=== PATIENT | female | born 1965 | race Caucasian/White ===

== ENCOUNTER 2019-02-21 14:57 | Outpatient (REF) | payer BC, SELFPAY ==
[2019-02-21 15:19] LABS: Abs Immature Grans 0.04 k/cumm (0.0-0.09); Absolute Basophil Count 0.08 k/cumm (0.0-0.2); Absolute Eosinophil Count 0.27 k/cumm (0.0-0.7); Absolute Lymphocyte Count 2.04 k/cumm (1.2-3.4); Absolute Monocyte Count 0.59 k/cumm (0.11-0.7); Absolute Neutrophil Count 4.18 k/cumm (1.2-6.7); Basophils % 1.1; Eosinophils % 3.8; Immature Grans % 0.6; Lymphocytes % 28.3; Mean Corp. HGB Concentration 33.3 g/dL (32.0-36.0); Mean Corpuscular Hemoglobin 29.3 pg (27.0-33.0); Mean Corpuscular Volume 87.8 fL (80-95); Mean Platelet Volume 9.4 fL (8.0-11.0); Monocytes % 8.2; Platelet Count 403 x1000/uL (130-400); RBC Distribution Width 13.2 % (11.7-14.6)
[2019-02-21 16:13] LABS: ALT 105 U/L (12-78); AST 77 U/L (15-37); Albumin 3.6 g/dL (3.4-5.0); Alkaline Phosphatase 138 U/L (46-116); Anion Gap 9.2 mmol/L (3-11); BUN 16 mg/dL (7-18); Bilirubin, Total 0.4 mg/dL (0.2-1.0); C-Reactive Protein 2.64 mg/dL (0.0-0.3); CO2 27.8 mmol/L (21.0-32.0); CREATININE 0.83 mg/dL (0.55-1.02); Chloride 102 mmol/L (98-107); Glucose 100 mg/dL (70-100); Potassium 4.6 mmol/L (3.5-5.1); Sodium 139 mmol/L (136-145); Total Protein 7.2 g/dL (6.4-8.2)
== END 2019-02-21 15:17 ==
LOC: NCHCN 14:57
PROVIDERS: PCP Family Medicine; Visit Provider Family Medicine
DX: T84.53XD Infection and inflammatory reaction due to internal right knee prosthesis, subsequent encounter (principal); Z96.652 Presence of left artificial knee joint; Z79.2 Long term (current) use of antibiotics
CPT/HCPCS: 80053; 85025; 86140

== ENCOUNTER 2019-02-28 13:04 | Outpatient (REF) | payer BC, SELFPAY ==
[2019-02-28 13:59] LABS: Abs Immature Grans 0.01 k/cumm (0.0-0.09); Absolute Basophil Count 0.11 k/cumm (0.0-0.2); Absolute Eosinophil Count 0.39 k/cumm (0.0-0.7); Absolute Lymphocyte Count 1.67 k/cumm (1.2-3.4); Absolute Monocyte Count 0.76 k/cumm (0.11-0.7); Basophils % 1.9; Eosinophils % 6.6; HCT 39.3 % (36.0-46.0); HGB 12.9 g/dL (12.0-15.5); Immature Grans % 0.2; Lymphocytes % 28.1; Mean Corp. HGB Concentration 32.8 g/dL (32.0-36.0); Mean Corpuscular Volume 88.3 fL (80-95); Mean Platelet Volume 9.6 fL (8.0-11.0); Monocytes % 12.8; Neutrophils % 50.4; Platelet Count 393 x1000/uL (130-400); RBC 4.45 m/cumm (4.00-5.20); RBC Distribution Width 13.3 % (11.7-14.6); White Blood Cell Count 5.94 k/cumm (4.4-10.8)
[2019-02-28 14:10] LABS: ALT 60 U/L (12-78); AST 42 U/L (15-37); Albumin 3.8 g/dL (3.4-5.0); Alkaline Phosphatase 142 U/L (46-116); Anion Gap 10.3 mmol/L (3-11); BUN 15 mg/dL (7-18); Bilirubin, Total 0.3 mg/dL (0.2-1.0); CO2 28.7 mmol/L (21.0-32.0); CREATININE 0.73 mg/dL (0.55-1.02); Calcium 9.3 mg/dL (8.5-10.1); Chloride 102 mmol/L (98-107); Glucose 80 mg/dL (70-100); Potassium 4.3 mmol/L (3.5-5.1); Sodium 141 mmol/L (136-145); Total Protein 7.3 g/dL (6.4-8.2)
[2019-03-03 12:06] LABS: C-Reactive Protein 1.39 mg/dL (0.0-0.3)
== END 2019-02-28 13:24 ==
LOC: NCHCN 13:04
PROVIDERS: Internal Medicine Infectious Disease; PCP Family Medicine; Visit Provider Family Medicine
DX: M00.9 Pyogenic arthritis, unspecified (principal); Z96.652 Presence of left artificial knee joint; T84.53XD Infection and inflammatory reaction due to internal right knee prosthesis, subsequent encounter; Z79.2 Long term (current) use of antibiotics
CPT/HCPCS: 80053; 85025; 86140

== ENCOUNTER 2019-03-07 12:50 | Outpatient (REF) | payer BC, SELFPAY ==
[2019-03-07 14:29] LABS: Abs Immature Grans 0.01 k/cumm (0.0-0.09); Absolute Basophil Count 0.11 k/cumm (0.0-0.2); Absolute Lymphocyte Count 1.47 k/cumm (1.2-3.4); Absolute Neutrophil Count 2.04 k/cumm (1.2-6.7); Basophils % 2.2; Eosinophils % 14.2; HCT 40.6 % (36.0-46.0); HGB 13.6 g/dL (12.0-15.5); Immature Grans % 0.2; Lymphocytes % 29.8; Mean Corp. HGB Concentration 33.5 g/dL (32.0-36.0); Mean Corpuscular Hemoglobin 29.2 pg (27.0-33.0); Mean Corpuscular Volume 87.3 fL (80-95); Monocytes % 12.2; Neutrophils % 41.4; Platelet Count 282 x1000/uL (130-400); RBC 4.65 m/cumm (4.00-5.20); RBC Distribution Width 13.3 % (11.7-14.6); White Blood Cell Count 4.93 k/cumm (4.4-10.8)
[2019-03-07 15:22] LABS: ALT 76 U/L (12-78); AST 42 U/L (15-37); Albumin 3.7 g/dL (3.4-5.0); Alkaline Phosphatase 143 U/L (46-116); Anion Gap 7.5 mmol/L (3-11); BUN 18 mg/dL (7-18); Bilirubin, Total 0.1 mg/dL (0.2-1.0); C-Reactive Protein 1.18 mg/dL (0.0-0.3); CO2 28.5 mmol/L (21.0-32.0); CREATININE 0.69 mg/dL (0.55-1.02); Calcium 9.1 mg/dL (8.5-10.1); Chloride 103 mmol/L (98-107); Glucose 138 mg/dL (70-100); Potassium 4.3 mmol/L (3.5-5.1); Sodium 139 mmol/L (136-145); Total Protein 7.2 g/dL (6.4-8.2)
== END 2019-03-07 13:10 ==
LOC: LBN 12:50
PROVIDERS: PCP Family Medicine; Visit Provider Family Medicine
DX: T84.53XD Infection and inflammatory reaction due to internal right knee prosthesis, subsequent encounter (principal); Z79.2 Long term (current) use of antibiotics; M00.9 Pyogenic arthritis, unspecified
CPT/HCPCS: 80053; 85025; 86140

== ENCOUNTER 2019-03-09 23:06 | Emergency (ER) | payer BC, SELFPAY ==
--- NOTE | 2019-03-09 00:15 | DI.RAD_ITS ---
SYMPTOM/DIAGNOSIS: CHEST PAIN PA AND LATERAL CHEST: Heart size and pulmonary vasculature are within normal limits. No focal consolidating infiltrates, effusions or pneumothoraces are identified. There is a right PICC line, the tip of the catheter is seen overlying the superior vena cava. IMPRESSION: No acute pulmonary process.
[2019-03-09 23:15] VITALS: BP 120/75; PULSE 85; RESP 20; TEMP 37.5; O2SAT 97
--- NOTE | 2019-03-09 23:31 | W.ED.GENAD ---
Discharge Plan Disposition Patient Disposition: HOME Condition: Good Discharge Details Chief Complaint: Chest Pain Clinical Impression: Chest pain Primary Care Provider: Sari Hay ED Provider: Michael Freed Home Meds and New Rx's Prescriptions: Continued rifampin 300 mg capsule 300 mg PO BID RF: 0 lisinopril 30 mg tablet 30 mg PO DAILY RF: 0 ceftriaxone in dextrose,iso-os 2 gram/50 mL Piggyback 2 g IV DAILY RF: 0 Discontinued ibuprofen [Advil Liqui-Gel] 200 MG capsule 400 mg PO DIRECTED PRNRF: 0 Discharge Instructions Instructions: Chest Pain (ED) Additional Instructions: Work-up tonight is reassuring. It is possible this is all GI related and secondary to taking Aleve for your knee. Would discontinue nonsteroidals and go back to just using Tylenol. May try [id number] Zantac or Pepcid over the weekend. Follow-up with primary care next week. Return to ED if you develop any new or worsening chest pain, shortness of breath, fever, other problems. Referrals: Sari Hay MD [Primary Care Provider] - Medical Decision Making Patient presenting with chest pressure that has been waxing and waning for 2 hours. There has been a few minutes where it goes away but it always returns. There is no radiation of pain. There is no associated symptoms. She is about 3 weeks postop from repeat knee surgery for total knee replacement infection. I do not think it is pulmonary embolus. I also do not think it cardiac. These would be the 2 pathologies I would worry about however. We will give the patient 3 more baby aspirin here. We will try a GI cocktail before trying nitroglycerin. EKG with no ST elevation. Inverted T waves precordial which are more or less present previously. No ST depression. Will get laboratory studies including d-dimer. Will obtain chest x-ray. GI cocktail has resolved the patient's symptoms. Discomfort has essentially not come back since getting the GI cocktail. Laboratory studies unremarkable except for a markedly elevated d-dimer. This could be related to the infection that is being treated. However, because she is recently postop I will pursue with CTA of the chest. I have discussed this with the patient and she is agreeable to proceed. First troponin is negative. If CTA negative plan repeat troponin and EKG at 2:30. CXR is unremarkable. HEART score is three based on age, EKG and risk factors. 03:45 -CTA of chest was difficult to time because of such good cardiac output. First CT was nondiagnostic. Second CT without evidence of central PE. Was still felt to not be completely adequate in terms of contrast bolus. However, patient is not describing pleuritic pain, shortness of breath. She has no tachycardia. I have discussed this with patient. Despite CTA not being completely optimal I think it is reasonable at this point to consider PE ruled out. Patient's pain has not come back. Second EKG is unchanged from one done earlier this evening. Second troponin is negative. Patient has been taking a fair amount of Aleve for her knee pain. It is possible this is all GI related. Will have patient go back to Tylenol as opposed to Aleve. Consider some [id number] Pepcid or Zantac for a few days. Follow-up with primary care next week. Return to ED for new or worsening chest pain, shortness of breath, fever, other concerns. Lab Data Lab results reviewed: Yes I reviewed the patient's lab results. ECG Data Attestation: I personally reviewed and interpreted this ECG (s) as follows: Prior ECG tracings: available for review Interpretation: Normal sinus rhythm at a rate of 86. Normal axis and intervals. Does have inverted T waves V1 V2 and flattening V3. Not a lot different compared to EKG from 2007.` HPI General Mode of arrival: ambulatory. Date/Time Provider Initiated Documentation: 03/09/19 23:27. Limitations to Documentation: no limitations. Information obtained by: patient, RN notes reviewed and old records reviewed. HPI Narrative: Patient presents to ED with complaint of chest pressure. Patient reports going to bed around 9 PM. She developed some right sided chest discomfort which is now centralized and substernal. Describes it as a pressure. Waxes and wanes in intensity and at times goes away for a few minutes but comes back. She has no radiation of the discomfort. She has no associated symptoms. She is on rifampin as well as IV ceftriaxone for treatment of a left total knee infection. She did contact and speak to her home health nurse. They were thinking it was probably GI related. However, after 2 hours of discomfort she finally came in for evaluation. She did take a walk hoping that that would help with the chest discomfort. It did not aggravate it or make it worse but it also did not make it better. She did take a low dose aspirin at home. She has not had chest pain before. She does have history of hypertension and obesity. She has borderline hypercholesterolemia but is not treated with medication for it at this point. She denies having any calf pain or lower extremity swelling. Her knee is actually getting much better. Related Data Home Medications Medication Instructions Recorded Confirmed ceftriaxone in dextrose,iso-os 2 g IV DAILY 03/10/19 03/10/19 lisinopril 30 mg PO DAILY 03/10/19 03/10/19 rifampin 300 mg PO BID 03/10/19 03/10/19 Allergies Allergy/AdvReac Type Severity Reaction Status Date / Time codeine AdvReac Intermediate Nausea Unverified 03/09/19 23:24 adhesive AdvReac Unverified 03/09/19 23:39 General Stated Complaint: Chest Pain HANANE: 2Sh Review of Systems Review of Systems 07/18 Review of Systems completed and is negative except as stated above in HPI (Systems reviewed: Const, Eyes, ENT, Resp, CV, GI, , MSK, Skin, Neuro) PFSH Medical History HTN (hypertension) (Chronic) Obesity (Chronic) Surgical History S/P TKR (total knee replacement) (Chronic) History of section (Inactive) S/P tubal ligation (Inactive) Colonoscopy - MAC (Inactive 05/11/17) Social History Smoking/Tobacco Use Status: Former Tobacco Use Alcohol Intake: former Drug use: Never Do you feel safe at home: Yes Do you feel safe in your relationship?: Yes Exam Narrative Exam Narrative: Vitals: Afebrile with normal vital signs. Const: Obese female in NAD. HEENT: NC/AT. Normal facial exam. Eyes: Normal conjunctiva and sclera. Neck: Supple. Trachea midline. Lungs: Normal respiratory effort. Lungs are clear. No chest wall tenderness. Cor: RRR without murmur/gallop. Good radial pulses. GI: Soft. NT/ND. No guarding or rebound. No RUQ tenderness or Rahman sign. Neuro: A+O x 3. CN grossly in tact. Good strength and no focal deficit. Ext: No C/C/E. No calf tenderness. Skin: Warm and dry without rash. Course Vital Signs Temperature 99.5 F 03/09/19 23:15 Pulse 85 03/09/19 23:15 Respiratory Rate 20 03/09/19 23:15 Blood Pressure 120/75 03/09/19 23:15 Pulse Oximetry 97 03/09/19 23:15 Temperature 99.5 F 03/09/19 23:15 Temperature Source Temporal Artery Scan 03/09/19 23:15 Pulse 85 03/09/19 23:15 Respiratory Rate 20 03/09/19 23:15 Blood Pressure 120/75 03/09/19 23:15 Pulse Oximetry 97 03/09/19 23:15 Oxygen Delivery Method Room Air 03/09/19 23:15 Oxygen Flow Rate 0 03/09/19 23:15
--- NOTE | 2019-03-09 23:36 | ED.GENADUL_ITS ---
Discharge Plan Disposition Patient Disposition: HOME Condition: Good Discharge Details Chief Complaint: Chest Pain Clinical Impression: Chest pain Primary Care Provider: Sari Hay ED Provider: Michael Freed Home Meds and New Rx's Prescriptions: Continued rifampin 300 mg capsule 300 mg PO BID RF: 0 lisinopril 30 mg tablet 30 mg PO DAILY RF: 0 ceftriaxone in dextrose,iso-os 2 gram/50 mL Piggyback 2 g IV DAILY RF: 0 Discontinued ibuprofen [Advil Liqui-Gel] 200 MG capsule 400 mg PO DIRECTED PRNRF: 0 Discharge Instructions Instructions: Chest Pain (ED) Additional Instructions: Work-up tonight is reassuring. It is possible this is all GI related and secondary to taking Aleve for your knee. Would discontinue nonsteroidals and go back to just using Tylenol. May try [id number] Zantac or Pepcid over the weekend. Follow-up with primary care next week. Return to ED if you develop any new or worsening chest pain, shortness of breath, fever, other problems. Referrals: Sari Hay MD [Primary Care Provider] - Medical Decision Making Patient presenting with chest pressure that has been waxing and waning for 2 hours. There has been a few minutes where it goes away but it always returns. There is no radiation of pain. There is no associated symptoms. She is about 3 weeks postop from repeat knee surgery for total knee replacement infection. I do not think it is pulmonary embolus. I also do not think it cardiac. These would be the 2 pathologies I would worry about however. We will give the patient 3 more baby aspirin here. We will try a GI cocktail before trying nitroglycerin. EKG with no ST elevation. Inverted T waves precordial which are more or less present previously. No ST depression. Will get laboratory studies including d-dimer. Will obtain chest x-ray. GI cocktail has resolved the patient's symptoms. Discomfort has essentially not come back since getting the GI cocktail. Laboratory studies unremarkable except for a markedly elevated d-dimer. This could be related to the infection that is being treated. However, because she is recently postop I will pursue with CTA of the chest. I have discussed this with the patient and she is agreeable to proceed. First troponin is negative. If CTA negative plan repeat troponin and EKG at 2:30. CXR is unremarkable. HEART score is three based on age, EKG and risk factors. 03:45 -CTA of chest was difficult to time because of such good cardiac output. First CT was nondiagnostic. Second CT without evidence of central PE. Was still felt to not be completely adequate in terms of contrast bolus. However, patient is not describing pleuritic pain, shortness of breath. She has no tachycardia. I have discussed this with patient. Despite CTA not being completely optimal I think it is reasonable at this point to consider PE ruled out. Patient's pain has not come back. Second EKG is unchanged from one done earlier this evening. Second troponin is negative. Patient has been taking a fair amount of Aleve for her knee pain. It is possible this is all GI related. Will have patient go back to Tylenol as opposed to Aleve. Consider some [id number] Pepcid or Zantac for a few days. Follow-up with primary care next week. Return to ED for new or worsening chest pain, shortness of breath, fever, other concerns. Lab Data Lab results reviewed: Yes I reviewed the patient's lab results. ECG Data Attestation: I personally reviewed and interpreted this ECG (s) as follows: Prior ECG tracings: available for review Interpretation: Normal sinus rhythm at a rate of 86. Normal axis and intervals. Does have inverted T waves V1 V2 and flattening V3. Not a lot different compared to EKG from 2007.` HPI General Mode of arrival: ambulatory . Date/Time Provider Initiated Documentation: 03/09/19 23:27 . Limitations to Documentation: no limitations . Information obtained by: patient, RN notes reviewed and old records reviewed . HPI Narrative: Patient presents to ED with complaint of chest pressure. Patient reports going to bed around 9 PM. She developed some right sided chest discomfort which is now centralized and substernal. Describes it as a pressure. Waxes and wanes in intensity and at times goes away for a few minutes but comes back. She has no radiation of the discomfort. She has no associated symptoms. She is on rifampin as well as IV ceftriaxone for treatment of a left total knee infection. She did contact and speak to her home health nurse. They were thinking it was probably GI related. However, after 2 hours of discomfort she finally came in for evaluation. She did take a walk hoping that that would help with the chest discomfort. It did not aggravate it or make it worse but it also did not make it better. She did take a low dose aspirin at home. She has not had chest pain before. She does have history of hypertension and obesity. She has borderline hypercholesterolemia but is not treated with medication for it at this point. She denies having any calf pain or lower extremity swelling. Her knee is actually getting much better. Related Data Home Medications Medication Instructions Recorded Confirmed ceftriaxone in dextrose,iso-os 2 g IV DAILY 03/10/19 03/10/19 lisinopril 30 mg PO DAILY 03/10/19 03/10/19 rifampin 300 mg PO BID 03/10/19 03/10/19 Allergies Allergy/AdvReac Type Severity Reaction Status Date / Time codeine AdvReac Intermediate Nausea Unverified 03/09/19 23:24 adhesive AdvReac Unverified 03/09/19 23:39 General Stated Complaint: Chest Pain HANANE: 2 Sh Review of Systems Review of Systems 07/18 Review of Systems completed and is negative except as stated above in HPI (Systems reviewed: Const, Eyes, ENT, Resp, CV, GI, , MSK, Skin, Neuro) PFSH Medical History HTN (hypertension) (Chronic) Obesity (Chronic) Surgical History S/P TKR (total knee replacement) (Chronic) History of section (Inactive) S/P tubal ligation (Inactive) Colonoscopy - MAC (Inactive 05/11/17) Social History Smoking/Tobacco Use Status: Former Tobacco Use Alcohol Intake: former Drug use: Never Do you feel safe at home: Yes Do you feel safe in your relationship?: Yes Exam Narrative Exam Narrative: Vitals: Afebrile with normal vital signs. Const: Obese female in NAD. HEENT: NC/AT. Normal facial exam. Eyes: Normal conjunctiva and sclera. Neck: Supple. Trachea midline. Lungs: Normal respiratory effort. Lungs are clear. No chest wall tenderness. Cor: RRR without murmur/gallop. Good radial pulses. GI: Soft. NT/ND. No guarding or rebound. No RUQ tenderness or Rahman sign. Neuro: A+O x 3. CN grossly in tact. Good strength and no focal deficit. Ext: No C/C/E. No calf tenderness. Skin: Warm and dry without rash. Course Vital Signs Temperature 99.5 F 03/09/19 23:15 Pulse 85 03/09/19 23:15 Respiratory Rate 20 03/09/19 23:15 Blood Pressure 120/75 03/09/19 23:15 Pulse Oximetry 97 03/09/19 23:15 Temperature 99.5 F 03/09/19 23:15 Temperature Source Temporal Artery Scan 03/09/19 23:15 Pulse 85 03/09/19 23:15 Respiratory Rate 20 03/09/19 23:15 Blood Pressure 120/75 03/09/19 23:15 Pulse Oximetry 97 03/09/19 23:15 Oxygen Delivery Method Room Air 03/09/19 23:15 Oxygen Flow Rate 0 03/09/19 23:15
[2019-03-09] MEDS: Aspirin 81 MG CHEW 324 MG CH (23:39)
[2019-03-09 23:49] VITALS: PULSE 76; RESP 17; O2SAT 92
[2019-03-09 23:50] VITALS: PULSE 80; RESP 17; O2SAT 95
[2019-03-10] VITALS (30 sets, daily range): BP systolic 100–115; BP diastolic 44–75; PULSE 67–93; RESP 14–24; O2SAT 91–98
[2019-03-10 00:04] LABS: Absolute Basophil Count 0.08 k/cumm (0.0-0.2); Absolute Lymphocyte Count 1.71 k/cumm (1.2-3.4); Absolute Monocyte Count 0.87 k/cumm (0.11-0.7); Absolute Neutrophil Count 2.39 k/cumm (1.2-6.7); Basophils % 1.4; Eosinophils % 13.7; HGB 13.2 g/dL (12.0-15.5); Lymphocytes % 29.2; Mean Corp. HGB Concentration 33.8 g/dL (32.0-36.0); Mean Corpuscular Hemoglobin 29.1 pg (27.0-33.0); Mean Corpuscular Volume 86.1 fL (80-95); Mean Platelet Volume 9.5 fL (8.0-11.0); Monocytes % 14.9; Neutrophils % 40.8; Platelet Count 222 x1000/uL (130-400); RBC 4.53 m/cumm (4.00-5.20); White Blood Cell Count 5.85 k/cumm (4.4-10.8)
[2019-03-10 00:17] LABS: ALT 58 U/L (12-78); AST 32 U/L (15-37); Albumin 3.6 g/dL (3.4-5.0); Alkaline Phosphatase 136 U/L (46-116); BUN 20 mg/dL (7-18); Bilirubin, Total 0.2 mg/dL (0.2-1.0); CREATININE 0.94 mg/dL (0.55-1.02); Calcium 9.1 mg/dL (8.5-10.1); Chloride 100 mmol/L (98-107); Glucose 130 mg/dL (70-100); Magnesium 2.3 mg/dL (1.8-2.4); Sodium 134 mmol/L (136-145); Total Protein 7.3 g/dL (6.4-8.2); Troponin I < 0.02 ng/mL (0.00-0.06)
[2019-03-10 00:19] LABS: PTT Activated 22.6 sec (21.0-31.4); Prothrombin Time 10.4 sec (9.3-11.0)
[2019-03-10 00:34] LABS: D-Dimer > 7500 ng/mlFEU (<500)
--- NOTE | 2019-03-10 00:37 | DI.VRAD_ITS ---
EXAM: XR Chest, 2 Views EXAM DATE/TIME: 03/09/2019 11:31 PM CLINICAL HISTORY: 53 years old, female; Chest pain; Type not specified; Additional info: Left knee surgery x4 weeks ago +/- TECHNIQUE: Imaging protocol: XR of the chest, 2 views. COMPARISON: No relevant prior studies available. FINDINGS: Lungs: Right PICC line tip overlies superior vena cava. No consolidation. Pleural space: Unremarkable. No pleural effusion. No pneumothorax. Heart/Mediastinum: Unremarkable. No cardiomegaly. Bones/joints: Unremarkable. IMPRESSION: No acute findings. Dictated and Authenticated by: Michael Pendleton MD. Ordering:MAO Rodriguez MD
[2019-03-10] MEDS: Normal Saline 1,000 ML 150 ML IV (01:08)
[2019-03-10] MEDS: Omnipaque 350 MG/ML 100 ML BTL IJ ×2 (01:53→02:25)
--- NOTE | 2019-03-10 02:23 | DI.CT_ITS ---
SYMPTOM/DIAGNOSIS: CHEST PAIN, RECENT SURGERY, ELEVATED D-DIMER CT ANGIOGRAPHY OF THE CHEST: CT angiography was performed with multi slice acquisition and multi planar and 3D reconstruction. CT angiography of the chest was performed at 1:56 a.m. The study is nondiagnostic for pulmonary embolus. There is poor opacification of the pulmonary arteries. The thoracic aorta is intact and no evidence of thoracic aortic dissection or aneurysm. Heart size is within normal limits. No significant pericardial effusion seen. No findings to suggest right ventricular dysfunction are present. No significant thoracic adenopathy pleural effusion or pneumothorax is identified. The tracheobronchial tree is unremarkable. The lungs are clear. Degenerative changes are present in the spine. The upper abdominal images show no acute abnormality. IMPRESSION: Suboptimal opacification of the pulmonary artery. The study is nondiagnostic for pulmonary embolus. The patient returned and a CT angiography of the chest was performed at 2:16 a.m. ;on 03/10/19. While there is improved opacification, the study is still limited due to decreased opacification of the pulmonary arteries. No obvious pulmonary embolus is seen in the main pulmonary artery or central pulmonary arteries. There is patient motion artifact present. The thoracic aorta is intact. No evidence of dissection or aneurysm. Heart size is within normal limits. No significant pericardial effusion seen. No evidence of right ventricular dysfunction is present. No significant mediastinal or hilar adenopathy, pleural effusion or pneumothorax is identified. The lungs remain clear. The tracheobronchial tree is unremarkable. There is a 3 mm noncalcified pulmonary nodule in the right upper lobe. Follow up as clinically appropriate taking into account the patient's clinical history. A 6 to [address] scan of the chest should be considered for re- evaluation of the pulmonary nodule. IMPRESSION: Limited examination of the pulmonary arteries due to suboptimal contrast, bolus administration and respiratory motion. No definite acute central pulmonary embolus is seen. No evidence of thoracic aortic dissection or aneurysm.
--- NOTE | 2019-03-10 02:30 | DI.VRAD_ITS ---
EXAM: CT Angiography Chest With Contrast EXAM DATE/TIME: 03/10/2019 12:59 AM CLINICAL HISTORY: 53 years old, female; Signs and symptoms; Other: Elevated d-dimer; Patient HX: Lt knee surgery 4 weeks ago, anterior chest pain x2 hours TECHNIQUE: Imaging protocol: Axial computed tomographic angiography images of the chest with intravenous contrast using CT angiography protocol. Coronal and sagittal reformatted images were created and reviewed. 3D rendering: MIP reconstructed images were created and reviewed. Radiation optimization: All CT scans at this facility use at least one of these dose optimization techniques: automated exposure control; mA and/or kV adjustment per patient size (includes targeted exams where dose is matched to clinical indication); or iterative reconstruction. Contrast material: [id number]; Contrast volume: 100 ml; Contrast route: IV; COMPARISON: CR XR CHEST 2V PA LATERAL 03/10/2019 12:05 AM FINDINGS: Pulmonary arteries: Study nondiagnostic for pulmonary emboli. Aorta: Normal. No aortic aneurysm. No aortic dissection. Lungs: Normal. No consolidation. No masses. Pleural space: Normal. No pneumothorax. No pleural effusion. Heart: Normal. No cardiomegaly. No pericardial effusion. Liver: Hepatic steatosis. Lymph nodes: Unremarkable. No enlarged lymph nodes. Bones/joints: Unremarkable. No acute fracture. Soft tissues: Unremarkable. IMPRESSION: No acute finding. Dictated and Authenticated by: Michael Pendleton MD. Ordering:MAO Rodriguez MD
[2019-03-10 03:37] LABS: Troponin I < 0.02 ng/mL (0.00-0.06)
== END 2019-03-10 04:01 | disposition home or self-care (01) ==
PROVIDERS: Emergency Provider Emergency Medicine; PCP Family Medicine
DX: R07.9 Chest pain, unspecified (principal); I10 Essential (primary) hypertension
CPT/HCPCS: 71275; 80053; 93005; 96360; 96361; 99285; 71046; 83735; 84484; 85025; 85379; 85610; 85730; 93010; J3490

== ENCOUNTER 2019-03-14 12:57 | Outpatient (REF) | payer BC, SELFPAY ==
[2019-03-14 13:50] LABS: Absolute Basophil Count 0.05 k/cumm (0.0-0.2); Absolute Lymphocyte Count 1.37 k/cumm (1.2-3.4); Absolute Monocyte Count 0.64 k/cumm (0.11-0.7); Basophils % 1.5; Eosinophils % 24.6; HCT 39.3 % (36.0-46.0); HGB 13.2 g/dL (12.0-15.5); Lymphocytes % 42.2; Mean Corp. HGB Concentration 33.6 g/dL (32.0-36.0); Mean Corpuscular Hemoglobin 28.6 pg (27.0-33.0); Mean Corpuscular Volume 85.2 fL (80-95); Monocytes % 19.7; Platelet Count 243 x1000/uL (130-400); RBC 4.61 m/cumm (4.00-5.20); White Blood Cell Count 3.25 k/cumm (4.4-10.8)
[2019-03-14 14:06] LABS: ALT 49 U/L (12-78); AST 29 U/L (15-37); Albumin 3.9 g/dL (3.4-5.0); Alkaline Phosphatase 138 U/L (46-116); Anion Gap 9.2 mmol/L (3-11); BUN 13 mg/dL (7-18); Bilirubin, Total 0.3 mg/dL (0.2-1.0); C-Reactive Protein 1.66 mg/dL (0.0-0.3); CO2 27.8 mmol/L (21.0-32.0); CREATININE 0.71 mg/dL (0.55-1.02); Chloride 102 mmol/L (98-107); Glucose 88 mg/dL (70-100); Potassium 4.4 mmol/L (3.5-5.1); Sodium 139 mmol/L (136-145); Total Protein 7.1 g/dL (6.4-8.2)
[2019-03-14 14:18] LABS: Absolute Neutrophil Count 0.39 k/cumm (1.2-6.7)
[2019-03-14 14:56] LABS: Diff Comment Diff Reviewed; RBC Morphology Normal
== END 2019-03-14 13:17 ==
LOC: LBN 12:57
PROVIDERS: PCP Family Medicine; Visit Provider Family Medicine
DX: T84.53XD Infection and inflammatory reaction due to internal right knee prosthesis, subsequent encounter (principal); Z79.2 Long term (current) use of antibiotics
CPT/HCPCS: 80053; 85025; 86140

== ENCOUNTER 2019-03-18 02:37 | Outpatient (CLI) | payer BC, SELFPAY ==
[2019-03-18 10:15] LABS: Absolute Basophil Count 0.07 k/cumm (0.0-0.2); Absolute Eosinophil Count 0.68 k/cumm (0.0-0.7); Absolute Lymphocyte Count 1.65 k/cumm (1.2-3.4); Absolute Monocyte Count 0.49 k/cumm (0.11-0.7); Basophils % 2.4; Eosinophils % 23.5; HCT 40.9 % (36.0-46.0); HGB 13.8 g/dL (12.0-15.5); Lymphocytes % 57.1; Mean Corp. HGB Concentration 33.7 g/dL (32.0-36.0); Mean Corpuscular Hemoglobin 28.7 pg (27.0-33.0); Mean Platelet Volume 9.1 fL (8.0-11.0); Platelet Count 263 x1000/uL (130-400); RBC 4.81 m/cumm (4.00-5.20); RBC Distribution Width 12.9 % (11.7-14.6); White Blood Cell Count 2.89 k/cumm (4.4-10.8)
[2019-03-18 11:12] LABS: Diff Comment Agrees w/ Instrument; RBC Morphology Normal
== END 2019-03-18 02:57 ==
PROVIDERS: PCP Family Medicine; Visit Provider Internal Medicine Infectious Disease
DX: D70.2 Other drug-induced agranulocytosis (principal)
CPT/HCPCS: 36415; 85025

== ENCOUNTER 2019-03-21 09:09 | Outpatient (CLI) | payer BC, SELFPAY ==
[2019-03-21 11:37] LABS: Absolute Basophil Count 0.08 k/cumm (0.0-0.2); Absolute Lymphocyte Count 1.43 k/cumm (1.2-3.4); Absolute Monocyte Count 0.66 k/cumm (0.11-0.7); Basophils % 3.1; Eosinophils % 15.6; HCT 40.5 % (36.0-46.0); HGB 13.4 g/dL (12.0-15.5); Lymphocytes % 55.6; Mean Corp. HGB Concentration 33.1 g/dL (32.0-36.0); Mean Corpuscular Volume 84.6 fL (80-95); Mean Platelet Volume 9.3 fL (8.0-11.0); Monocytes % 25.7; Platelet Count 289 x1000/uL (130-400); RBC 4.79 m/cumm (4.00-5.20); RBC Distribution Width 12.6 % (11.7-14.6); White Blood Cell Count 2.57 k/cumm (4.4-10.8)
[2019-03-21 12:00] LABS: C-Reactive Protein 1.79 mg/dL (0.0-0.3)
[2019-03-21 12:43] LABS: Diff Comment Diff Reviewed; RBC Morphology Normal
== END 2019-03-21 09:29 ==
PROVIDERS: Orthopaedic Surgery; PCP Family Medicine; Visit Provider Internal Medicine Infectious Disease
DX: T84.53XA Infection and inflammatory reaction due to internal right knee prosthesis, initial encounter (principal); Z96.651 Presence of right artificial knee joint; D70.2 Other drug-induced agranulocytosis
CPT/HCPCS: 36415; 85025; 86140

== ENCOUNTER 2019-03-22 00:23 | Outpatient (CLI) | payer BC, SELFPAY ==
--- NOTE | 2019-03-22 13:00 | DI.MAMMO_ITS ---
SYMPTOMS/DIAGNOSIS: SCREENING, Z12.39 MAMMOGRAMS: Mammograms were interpreted according to the usual protocol including computer analysis with CAD system, tomosynthesis and C view imaging. The breast tissue is of fatty radiodensity. There is no dominant mass. There are no suspicious calcifications and there has been no significant interval change when compared with prior images. SUMMARY: No evidence of malignancy, category 1. Yearly screening mammography is recommended. Breast density category A. MQSA ASSESSMENT OF FINDINGS: Negative. Category 1. Patient will receive a letter notifying them of these results. BI-RAD category A. The breasts are almost entirely fatty.
== END 2019-03-22 00:43 ==
PROVIDERS: PCP Family Medicine; Visit Provider Family Medicine
DX: Z12.31 Encounter for screening mammogram for malignant neoplasm of breast (principal)
CPT/HCPCS: 77063; 77067

== ENCOUNTER 2019-03-24 13:45 | Outpatient (REF) | payer BC, SELFPAY ==
[2019-03-24 19:33] LABS: Calculated LDL 184; Cholesterol 254 mg/dL (50-200); HDL Cholesterol 49 mg/dL (40-60); TSH (W/Ref FT4) 5.18 uIU/mL (0.358-3.74); Triglyceride 108 mg/dL (30-150)
[2019-03-24 19:55] LABS: FREE T4 1.13 ng/dL (0.76-1.46)
== END 2019-03-24 14:05 ==
LOC: NCHCN 13:45
PROVIDERS: PCP Family Medicine; Visit Provider Family Medicine
DX: E03.9 Hypothyroidism, unspecified (principal); I10 Essential (primary) hypertension; E78.5 Hyperlipidemia, unspecified
CPT/HCPCS: 80061; 83721; 84439; 84443

== ENCOUNTER 2019-03-25 10:32 | Outpatient (CLI) | payer BC, SELFPAY ==
[2019-03-25 11:33] LABS: Abs Immature Grans 0.02 k/cumm (0.0-0.09); Absolute Basophil Count 0.14 k/cumm (0.0-0.2); Absolute Eosinophil Count 0.29 k/cumm (0.0-0.7); Absolute Lymphocyte Count 1.91 k/cumm (1.2-3.4); Absolute Monocyte Count 0.87 k/cumm (0.11-0.7); Basophils % 3.8; HCT 40.7 % (36.0-46.0); HGB 13.8 g/dL (12.0-15.5); Immature Grans % 0.5; Lymphocytes % 52.5; Mean Corp. HGB Concentration 33.9 g/dL (32.0-36.0); Mean Corpuscular Hemoglobin 28.3 pg (27.0-33.0); Mean Corpuscular Volume 83.4 fL (80-95); Mean Platelet Volume 9.2 fL (8.0-11.0); Monocytes % 23.9; Neutrophils % 11.3; Platelet Count 313 x1000/uL (130-400); RBC 4.88 m/cumm (4.00-5.20); RBC Distribution Width 12.6 % (11.7-14.6); White Blood Cell Count 3.64 k/cumm (4.4-10.8)
[2019-03-25 11:55] LABS: Absolute Neutrophil Count 0.41 k/cumm (1.2-6.7)
== END 2019-03-25 10:52 ==
PROVIDERS: PCP Family Medicine; Visit Provider Internal Medicine Infectious Disease
DX: D70.2 Other drug-induced agranulocytosis (principal)
CPT/HCPCS: 36415; 85025

== ENCOUNTER 2019-03-30 08:40 | Outpatient (CLI) | payer BC, SELFPAY ==
[2019-03-30 10:35] LABS: Abs Immature Grans 0.02 k/cumm (0.0-0.09); Absolute Basophil Count 0.11 k/cumm (0.0-0.2); Absolute Eosinophil Count 0.25 k/cumm (0.0-0.7); Absolute Monocyte Count 0.58 k/cumm (0.11-0.7); Absolute Neutrophil Count 2.16 k/cumm (1.2-6.7); Basophils % 2.1; Eosinophils % 4.9; HCT 42.4 % (36.0-46.0); HGB 14.2 g/dL (12.0-15.5); Immature Grans % 0.4; Lymphocytes % 39.1; Mean Corp. HGB Concentration 33.5 g/dL (32.0-36.0); Mean Corpuscular Volume 83.6 fL (80-95); Mean Platelet Volume 9.6 fL (8.0-11.0); Monocytes % 11.3; Neutrophils % 42.2; Platelet Count 261 x1000/uL (130-400); RBC 5.07 m/cumm (4.00-5.20); RBC Distribution Width 12.9 % (11.7-14.6); White Blood Cell Count 5.12 k/cumm (4.4-10.8)
== END 2019-03-30 09:00 ==
PROVIDERS: PCP Family Medicine; Visit Provider Internal Medicine Infectious Disease
DX: D70.2 Other drug-induced agranulocytosis (principal)
CPT/HCPCS: 36415; 85025

== ENCOUNTER 2019-07-26 07:36 | Outpatient (CLI) | payer BC, SELFPAY ==
[2019-07-26 12:36] LABS: TSH (W/Ref FT4) 3.05 uIU/mL (0.36-3.74)
== END 2019-07-26 07:56 ==
PROVIDERS: PCP Family Medicine; Visit Provider Family Medicine
DX: E03.9 Hypothyroidism, unspecified (principal); R00.1 Bradycardia, unspecified
CPT/HCPCS: 36415; 84443

== ENCOUNTER 2019-09-05 10:01 | Outpatient (CLI) | payer BC, SELFPAY ==
--- NOTE | 2019-09-05 10:09 | DI.RAD_ITS ---
EXAM: XR WRIST LT COMPLETE INDICATION: PAIN AFTER FALL M25.532, TENDERNESS AND SWELLING TO DISTAL RADIUS AND ULNAR. COMPARISON: No exams were available for comparison TECHNIQUE: 2D digital imaging was performed. FINDINGS: There is a nondisplaced oblique fracture through the distal left radius. The fracture is intra-artic ular. No other fracture or dislocation is seen. Degenerative changes are seen at the distal radial ulnar joint and the 1st carpometacarpal joint. There is soft tissue swelling of the wrist. IMPRESSION: Nondisplaced intra-articular fracture of the distal left radius.
== END 2019-09-05 10:21 ==
PROVIDERS: PCP Family Medicine; Visit Provider Nurse Practitioner Family
DX: M25.532 Pain in left wrist (principal); S52.572A Other intraarticular fracture of lower end of left radius, initial encounter for closed fracture; M18.12 Unilateral primary osteoarthritis of first carpometacarpal joint, left hand; M79.89 Other specified soft tissue disorders
CPT/HCPCS: 73110

== ENCOUNTER 2021-05-30 01:59 | Outpatient (CLI) | payer BC, SELFPAY ==
--- NOTE | 2021-05-30 | DI.RAD_ITS ---
Exam(s) XR TIB/FIB LT EXAM: XR TIB/FIB LT CLINICAL HISTORY: LEFT LEG PAIN TECHNIQUE: COMPARISON: No exams were available for comparison FINDINGS: Three views were obtained. There is a total knee joint replacement in position. Components appear w ell seated as visualized. The ankle mortise appears well maintained. No other significant bony or s oft tissue abnormality seen. IMPRESSION: RADIATION DOSE DELIVERED: Total DLP
--- NOTE | 2021-05-30 16:34 | DI.VRAD_ITS ---
PROCEDURE INFORMATION: Exam: XR Left Tibia and Fibula Exam date and time: 05/30/2021 9:21 AM Age: 55 years old Clinical indication: Lower leg; Prior surgery; Patient HX: Left leg pain TECHNIQUE: Imaging protocol: XR Left tibia and fibula. Views: 2 views. COMPARISON: No relevant prior studies available. FINDINGS: Bones/joints: Patient is status post total left knee arthroplasty without hardware complication or loosening. On lateral view, minor degenerative changes to the mid and hindfoot apparent. No acute osseous injury or underlying osseous mass. Soft tissues: Soft tissue calcifications are seen about the knee. IMPRESSION: 1. Total left knee arthroplasty without complication. 2. No acute osseous injury, underlying osseous mass or significant degenerative change. Dictated and Authenticated by: Rl Morton MD. Ordering:LUCRECIA Guo MD
== END 2021-05-30 02:19 ==
PROVIDERS: PCP Family Medicine; Visit Provider Family Medicine
DX: M79.605 Pain in left leg (principal); Z98.890 Other specified postprocedural states
CPT/HCPCS: 73590

== ENCOUNTER 2021-07-02 02:25 | Outpatient (CLI) | payer BC, SELFPAY ==
--- NOTE | 2021-07-02 | DI.MAMMO_ITS ---
Exam(s) MAMMO SCREENING EXAM: MAMMO SCREENING CLINICAL HISTORY: SCREENING,Z12.39. TECHNIQUE: Bilateral full field digital CC and MLO mammographic images were obtained with 3D tomosyn thesis and utilizing computer aided detection (CAD). COMPARISON: Prior mammograms dating back to 2011, the most recent being March 2019. FINDINGS: There are no CAD designations. There are no new spiculated masses nor malignant appearing microcalcification groups. No new findings in the vicinity of the 2 biopsy markers in the right breast. Asymmetric density left breast is unchanged from prior studies. There is no significant architectural distortion nor skin thickening-retraction. IMPRESSION: No radiographic evidence of malignancy. BI-RADS Category 2 - Benign Findings Breast Density - Category B - Scattered areas of fibroglandular density Breast density Category C or D implies that the patient has dense breast tissue. Dense breast tissue can make it harder to find cancer on a mammogram. Dense breast tissue is also associated with an incr eased risk of breast cancer. This information about the result of the mammogram report was provided to the patient to raise their awareness. Use this report when you speak with the patient about their risks for breast cancer, which includes their family history. At that time, you may recommend additional screening tests (Ultrasoun d or MRI) as these tests may add significant information. A negative radiographic report should not delay biopsy if a dominant or clinically suspicious mass is present. Up to ten percent of cancers are not identified on mammography. A negative report may reinforce clinical impression. Adenosis and dense breasts may obscure an underlying neoplasm. False positive reports average 6 to 10%. Patient will receive a letter notifying them of these results.
== END 2021-07-02 02:45 ==
PROVIDERS: PCP Family Medicine; Visit Provider Family Medicine
DX: Z12.31 Encounter for screening mammogram for malignant neoplasm of breast (principal)
CPT/HCPCS: 77063; 77067

== ENCOUNTER 2021-09-30 16:45 | Outpatient (CLI) | payer BC, SELFPAY ==
--- NOTE | 2021-09-30 | DI.RAD_ITS ---
Exam(s) XR CHEST 2V PA LATERAL EXAM: XR CHEST 2V PA LATERAL CLINICAL HISTORY: FEBRILE ILLNESS R50.9 COUGH R05 TECHNIQUE: COMPARISON: No exams were available for comparison FINDINGS: The heart is not enlarged. The lungs are predominantly clear, however, there is question of patchy l eft suprahilar infiltrate. Possibility of acute pneumonitis is raised. No other significant finding s in the lungs. No pleural effusion. IMPRESSION: Possible left suprahilar infiltrate, appropriate follow-up films requested. RADIATION DOSE DELIVERED: Total DLP
--- NOTE | 2021-09-30 17:02 | DI.VRAD_ITS ---
PROCEDURE INFORMATION: Exam: XR Chest Exam date and time: 09/30/2021 4:23 PM Age: 55 years old Clinical indication: Febrile illness r50.9 cough r05; TECHNIQUE: Imaging protocol: XR of the chest. Views: 2 views. COMPARISON: CR XR CHEST 2V PA LATERAL 03/10/2019 12:05 AM FINDINGS: Lungs: There is a linear opacity seen in the left upper lobe, which could represent atelectasis or mild pneumonia. Pleural spaces: No pleural effusion. No pneumothorax. Heart/Mediastinum: No cardiomegaly. Bones/joints: Unremarkable. IMPRESSION: Linear opacity seen in the left upper lobe, which could represent atelectasis or mild pneumonia. Correlate with clinical findings. Dictated and Authenticated by: Grace Hernandez MD. Ordering:CARLOS Darling MD
== END 2021-09-30 17:05 ==
PROVIDERS: PCP Family Medicine; Visit Provider Family Medicine
DX: R05.8 Other specified cough (principal); R50.9 Fever, unspecified; R91.8 Other nonspecific abnormal finding of lung field
CPT/HCPCS: 80053; U0003; 71046; 85025

== ENCOUNTER 2021-09-30 21:03 | Outpatient (REF) | payer BC, SELFPAY ==
[2021-09-30 22:04] LABS: Abs Immature Grans 0.05 10^3/uL (0.0-0.06); Absolute Eosinophil Count 0.18 10^3/uL (0.0-0.7); Absolute Lymphocyte Count 3.19 10^3/uL (1.2-3.4); Absolute Monocyte Count 0.65 10^3/uL (0.1-0.8); Absolute Neutrophil Count 6.38 10^3/uL (1.2-6.7); Basophils % 0.9; Eosinophils % 1.7; HCT 42.2 % (36.0-46.0); HGB 13.5 g/dL (11.2-15.7); Immature Grans % 0.5; Lymphocytes % 30.2; MCH 26.8 pg (27.0-33.0); MCV 83.7 fL (80-95); MPV 10.1 fL (8.0-11.0); Monocytes % 6.2; Neutrophils % 60.5; Nucleated RBC 0 %; Platelet Count 382 10^3/uL (130-400); RBC 5.04 10^6/uL (3.93-5.22); RDW 14.6 % (11.7-14.6); WBC 10.55 10^3/uL (4.4-10.8)
[2021-09-30 22:21] LABS: ALT 25 U/L (14-59); AST 21 U/L (15-37); Albumin 4.4 g/dL (3.4-5.0); Alkaline Phosphatase 158 U/L (46-116); BUN 16 mg/dL (7-18); Bilirubin, Total 0.5 mg/dL (0.2-1.0); CREATININE 0.9 mg/dL (0.55-1.02); Calcium 9.9 mg/dL (8.5-10.1); Chloride 103 mmol/L (98-107); Glucose 90 mg/dL (74-106); Potassium 4.4 mmol/L (3.5-5.1); Sodium 140 mmol/L (136-145)
[2021-10-02 15:30] LABS: COVID-19 RT-PCR UVMMC Result Negative (Negative)
== END 2021-09-30 21:04 | disposition home or self-care (01) ==
LOC: LBN 21:03
PROVIDERS: PCP Family Medicine; Visit Provider Family Medicine
DX: Z20.822 Contact with and (suspected) exposure to COVID-19 (principal); R50.9 Fever, unspecified; J06.9 Acute upper respiratory infection, unspecified
CPT/HCPCS: 80053; U0003; 85025

== ENCOUNTER 2022-10-13 14:34 | Outpatient (REF) | payer BC, SELFPAY ==
--- NOTE | 2022-10-13 13:45 | PAPFT_PTH ---
PATIENT: Sissy Eugene LOC: [facility] U#:[id number] AGE/SX: 56/F ROOM: RE10/13/[address]: ALYX BELLO : 1965 BED: DIS: 10/13/2022 SPEC #: [id number] RECD: 10/13/22 18:15 STATUS: FREDY REQ #: [id number] [place]: 10/13/22 13:[address]: Alyx Bello DEPT: [facility] Cytology RECD BY: Chiquis Bragg ENTERED: 10/13/22 18:15 SP TYPE: PAPFT OTHR DR: Sari Hay Tissues: 1 - CX/ENDOCX FOR PAP SMEARS Procedures: PAP THIN PREP/[facility] Screening HPV DNA PROBE Comments: [id number]
== END 2022-10-13 14:35 | disposition home or self-care (01) ==
LOC: NCHCN 14:34
PROVIDERS: PCP Family Medicine; Visit Provider Nurse Practitioner Family
DX: Z12.4 Encounter for screening for malignant neoplasm of cervix (principal); Z11.51 Encounter for screening for human papillomavirus (HPV)
CPT/HCPCS: 88142; 87624

== ENCOUNTER 2022-10-15 09:12 | Outpatient (REF) | payer BC, SELFPAY ==
[2022-10-15 15:32] LABS: ALT 26 U/L (14-59); AST 22 U/L (15-37); Albumin 4.2 g/dL (3.4-5.0); Alkaline Phosphatase 145 U/L (46-116); Anion Gap 7.6 mmol/L (3-11); BUN 14 mg/dL (7-18); Bilirubin, Total 0.6 mg/dL (0.2-1.0); CO2 29.4 mmol/L (21.0-32.0); CREATININE 0.8 mg/dL (0.55-1.02); Calcium 9.4 mg/dL (8.5-10.1); Calculated LDL 165 mg/dL (<100); Chloride 106 mmol/L (98-107); Cholesterol 276 mg/dL (<200); Estimated GFR 85.35 (mL/min/1.73m2); Glucose 90 mg/dL (74-106); HDL Cholesterol 79 mg/dL (40-60); Hemoglobin A1C 5.5 % (<5.7); Potassium 4.3 mmol/L (3.5-5.1); Sodium 143 mmol/L (136-145); Total Protein 7.5 g/dL (6.4-8.2); Triglyceride 162 mg/dL (<150)
== END 2022-10-15 09:13 | disposition home or self-care (01) ==
LOC: NCHCN 09:12
PROVIDERS: PCP Family Medicine; Visit Provider Nurse Practitioner Family
DX: E78.5 Hyperlipidemia, unspecified (principal); E66.9 Obesity, unspecified; I10 Essential (primary) hypertension; Z13.1 Encounter for screening for diabetes mellitus
CPT/HCPCS: 80053; 80061; 83036

== ENCOUNTER → 2023-10-01 00:09 | Outpatient (CLI) | payer BC, SELFPAY ==
--- NOTE | 2023-10-01 | DI.MAMMO_ITS ---
Exam(s) MAMMO SCREENING EXAM: MAMMO SCREENING CLINICAL HISTORY: SCREENING MAMMO FOR BREAST CANCER Z12.39 TECHNIQUE: Mammograms were interpreted according to the usual protocol including computer analysis w [employer] CAD system, tomosynthesis and C-view imaging. COMPARISON: 2013 through 2020 FINDINGS: The breasts are composed of mainly fatty density , Breast Density category A. No suspicious masses or suspicious microcalcifications are seen. Biopsy marker clips again noted in the right breast. No skin thickening or abnormal axillary lymph nodes are seen. There has been no significant change from prior exams. IMPRESSION: BI-RADS Category 1, Negative mammogram Yearly screening mammography is recommended. Breast Density - Category A, fatty density. A negative radiographic report should not delay biopsy if a dominant or clinically suspicious mass is present. Up to ten percent of cancers are not identified on mammography. A negative report may reinforce clinical impression. Adenosis and dense breasts may obscure an underlying neoplasm. False positive reports average 6 to 10%. Patient will receive a letter notifying them of these results.
== END ==
PROVIDERS: PCP Nurse Practitioner Family; Visit Provider Nurse Practitioner Family
DX: Z12.31 Encounter for screening mammogram for malignant neoplasm of breast (principal)
CPT/HCPCS: 77063; 77067

== ENCOUNTER 2024-04-26 15:45 | Outpatient (REF) | payer BC, SELFPAY ==
--- OUTSIDE RECORDS SUMMARY | 2024-04-26 15:47 | XMS_ITS | Encounter Summary ---
Author Organization [facility] Address [facility] [place] [address] Care Team Providers Care Assistant Construction Superintendent Name Role Phone Sari Hay MD Primary Care Provider [phone] Reason for Visit * Reason Onset Date Comments Medication Refill 04/04/2022 Encounter Details Date Type Department Care Team (Late st Contact Info) Description 04/04/2022 [place] [address] Teressa Taylor PA [facility] [place] [address] Presence of right artificial knee joint Social History Tobacco Use Types Packs/Day Years Used Date Smoking Tobacco: Former Cigarettes 0.5 15 1 - 07/18/2003 Smokeless Tobacco: Never Alcohol Use Standard Drinks/Week Comments Yes 0 (1 standard drink = 0.6 oz pure alcohol) one glass of wine 6 times a year Sex and Gender Information Value Date Recorded Sex Assigned at Not on file Gender Identity Not on file Sexual Orientation Not on file documented as of this encounter Miscellaneous Notes * Telephone Encounter - Allie Lucas CMA - 04/04/2022 4:26 PM EDT Images from the original note were not included. Medication Refill Request Surgery/Injury/Provider: S/P revision of total knee, left [place] 03/14/21 Medication being requested:Oxycodone Query: Last refill or Original Rx: Seen within 30 days (if no, than when): Follow Up: 04/23/22 How is this medication being used currently: 4 tab every day Pain level: 04/13 Bowel concerns: no Other pain medications used and how: Tylenol Yes Gabapentin Yes Naproxen Yes OTHER Medication Taper Plan: Taper to the lowest effective maintenance dose, . Continue additional scheduled pain medication along with RICE. Teaching done regarding: taking nonnarcotic pain medications, taking the least amount of opioid needed for the least amount of time for adequate pain management and tapering of opioids with verbalized understanding by the patient. Requested Prescription to be sent electronically to [facility] (location). Prescription prepped and pended for [place] (provider) review. The patient knows how to contact orthopaedics if any further questions or concerns occur. documented in this encounter Plan of Treatment Not on file documented as of this encounter Visit Diagnoses Diagnosis Presence of right artificial knee joint Knee joint replacement by other means documented in this encounter Care Teams Assistant Construction Superintendent Relationship Specialty Start Date End Date Sari Hay MD [facility] [address] [place] [address] PCP - General 05/21/11 documented as of this encounter
--- OUTSIDE RECORDS SUMMARY | 2024-04-26 15:47 | XMS_ITS | Encounter Summary ---
Author Organization [facility] Address [facility] [place] [address] Care Team Providers Care Event Planner Name Role Phone Sari Hay MD Primary Care Provider [phone] Reason for Visit * Auth/Cert Specialty Diagnoses / Procedures Referred By Emmanuel t Referred To Contact Diagnoses Right Knee DJD Procedures PRO TOTAL KNEE ARTHROPLASTY TOTAL KNEE ARTHROPLASTY (WRVU 20.72) MODIFIER MEDACTA-TOTAL KNEE Referral ID Status Reason Start Date Expiration Date Visits Re quested Visits Authorized [id number] 1 1 Encounter Details Date Type Department Care Team (Late st Contact Info) Description 03/21/2022 7:30 AM EDT - 03/21/2022 10:00 AM EDT Surgery Main OR at [address] [id number] Rod Valdez MD [facility] [place] [address] TOTAL KNEE ARTHROPLASTY (WRVU 19.6) Social History Tobacco Use Types Packs/Day Years [...] on file documented as of this encounter Last Filed Vital Signs Vital Sign Reading Time Taken Comments Blood Pressure 104/65 03/21/2022 10:00 AM EDT Pulse 59 03/21/2022 10:00 AM EDT Temperature 36.2 ??C (97.2 ??F) 03/21/2022 9:55 AM ED T Respiratory Rate 15 03/21/2022 10:00 AM EDT Oxygen Saturation 96% 03/21/2022 10:00 AM EDT Inhaled Oxygen Concentration - - Weight 115 kg (253 lb 9.6 oz) 03/21/2022 6:24 AM EDT Height 177.8 cm (5' 10) 03/21/2022 6:24 AM EDT Body Mass Index 36.39 03/21/2022 6:24 AM EDT documented in this encounter Discharge Instructions * Patient Instructions* Mayuri Pearce MD - 03/21/2022 5:37 AM EDT Activity: 1. Your weight-bearing status is - weight bearing as tolerated of right leg. 2. Remember to use a walker or crutches at all times for balance and protection. Your physical therapist may progress you to using a cane when appropriate. 3. Flexion AND extension are important to work on at home. You should NOT place a pillow under youroperative knee. To help with extension you can place a pillow under your heel or lower leg or placed lengthwise along the operative leg. Again DO NOT place a pillow under the operated knee for comfort. Anticoagulation: Aspirin - You are being discharged on enteric-coated Aspirin 81 mg by mouth twice a day. Continue this for 30 days after surgery. After your dose on 04/20/22 stop the Aspirin, unless you are told otherwise by your Orthopedic surgeon. Take this medication with food or large amounts (240 mL) of water or milk to minimize GI irritation. Diet: Resume your usual diet but increase your intake of fluids and fiber while you are on narcoticpain meds to prevent constipation. Driving: None until you are cleared to do so by your Orthopedic surgeon. You should not drive whileyou are on narcotic pain meds as they can affect your judgment and reaction time. Call your surgeonwith any questions/concerns. Medications: 1. The pain medication you are on can cause constipation so increase your intake of fluids and fiber while you are on them. The stool softener, Pericolace, that has been prescribed can also be taken to facilitate a bowel movement. You can also take an optu-iwp-cvzlsai medication, Miralax if needed to combat constipation. 2. If you need a renewal on your narcotic pain medication, you need to give the Orthopedic clinic enough time to process your request. This can take up to three days, so plan accordingly. 3. Continue acetaminophen (Tylenol) 1,000mg every 8 hours around the clock until 03/31/22 (for ten days after your surgery). This can be effective in controlling pain along with your other medications. After that you can take Tylenol as needed per package insert. Do not take more than 3,000mg of acetaminophen in a 24 hour period. 4. You have been discharged on a short acting narcotic, oxycodone. You will be on this medication for a limited period of time only. Take the smallest dose possible to control your pain. As your painimproves take smaller, less frequent doses. You may break the tablet to achieve a smaller dose. 5. You are being discharged on prescription strength naproxen (Aleve). This medication is a type ofnonsteroidal anti-inflammatory (NSAID). This will help with your pain and inflammation. Take this twice a day for the next 6 weeks. If you no longer are requiring the narcotic pain medication you maychange the way you take the prescribed naproxen and instead take twice a day as needed. 6. You are being discharged on a proton pump inhibitor (Prilosec). This will decrease stomach irritation that may be caused by NSAIDs. Take this daily for the next 6 weeks while you are on the NSAID. 7. You are being discharged on gabapentin (Neurontin), a non-narcotic medication that will help with your pain at night and allow you to sleep better. Take this at night for the next 30 days. Shower (internal sutures): 1. You can shower but remember your activity limitations and always have a chair available for balance and protection. DO NOT submerge the dressing/incision. 2. (Mepilex) Do not let water run over the operative dressing. If it becomes wet lightly pat the dressing dry. DO NOT submerge the incision. When this operative dressing is removed you can let water gently run over the incision. Wound (Mepilex): 1. You do NOT have any external axel or sutures in place. Your sutures are internal and will be absorbed over time. 2. You have a Mepilex dressing in place. Do not lift the edge of the Mepilex dressing to inspect the incision, it will not re-adhere. Remove your operative dressing 7 days after your surgery (03/28/22). When it is removed you can leave the incision open to air or cover it with a light dressing. Somepatients have an additional item called Prineo on their skin. If you have this it will appear as a mesh dressing directly over the incision. Please leave this in place until your follow up with orthopedics. 3. If you have lots of drainage when you get home (and it is before 03/28/22), remove the operative dressing and replace it with dry sterile gauze. Continue with daily dressing changes (and as needed)until the drainage stops, then remove the dressing and leave the incision open to air or lightly covered. Misc: Remember that ICE and elevation are very important after surgery to help decrease swelling and control pain. Use ICE for 20-30 minutes at a time and keep your leg elevated as much as possible. Call your doctor ([phone]) if you develop: Fever greater than 100.5 Severe nausea or vomiting Increasing pain that is not controlled by pain medications Increasing redness, swelling, or drainage from incisions Change in sensation FOLLOW-UP APPOINTMENTS: 1. You will have follow[place]up appointments at [facility] as indicated below in Future Appointment and Orders. 2. You will need to have x-rays prior to your follow-up appointment on 04/23/22. Please come to Radiology, desk 3T, 1 hour BEFORE that appointment for those x-rays. Future Appointments Date Time Provider Department Center 04/23/2022 12:45 PM [facility] DX ROOM 2 Xray [facility] Rad 04/23/2022 1:30 PM Rod Valdez MD [facility]C [facility] If you have questions or concerns: Thursday through Thursday, 8 AM - 5 PM, please call Dr. Rod Valdez MD's office at . If it is after 5 PM, the weekend, or holidays, please call and [facility]. documented in this encounter Medications at Time of Discharge Medication Sig Dispensed Refills Start Date End Date aspirin EC 81 mg Tablet, Delayed Release (E.C.) Take 1 tablet by mouth 2 times daily. 60 tablet 03/21/2022 acetaminophen (Tylenol) 325 mg Tablet Take 650 mg by mouth every 4 hours as needed for Pain. ibuprofen (Advil) 200 mg Tablet Take 400 mg by mouth nightly as needed for Pain. oxyCODONE (Roxicodone) 5 mg Tablet Take 1-2 tablets by mouth every 4 hours as needed for Pain (acute postop surgical pain). 42 tablet 03/21/2022 03/27/2022 naproxen (NAPROSYN) 500 mg Tablet Take 1 tablet by mouth 2 times daily (with meals). 60 tablet 03/21/2022 10/07/2023 omeprazole (PriLOSEC) 20 mg Capsule, Delayed Release(E.C.) Take 1 capsule by mouth daily. 42 capsule 03/21/2022 04/23/2022 polyethylene glycoL (Miralax) 17 gram Powder in Packet Take 17 g by mouth daily. 14 each 03/21/2022 04/23/2022 gabapentin (Neurontin) 300 mg Capsule Take 1 capsule by mouth nightly. 30 capsule 03/21/2022 10/07/2023 amoxicillin (Amoxil) 500 mg Capsule TAKE FOUR CAPSULES BY MOUTH 1 HOUR PRIOR TO DENTAL PROCEDURE 11/29/2020 09/30/2022 documented as of this encounter Progress Notes * Stephen Sanchez RN - 03/21/2022 1:06 PM EDT Patient alert, tolerating PO intake and ambulation. Some pain in operative knee reduced to a tolerable level with PRN fentanyl and oxycodone. PRN zofran given for nausea post fentanyl dose. VSS, RA. Walking with PT and OT without difficulty. Difficulty with urinary incontinence post op and patient expressing anxiety about going home with incontinence - education provided regarding improvement as spinal wears off, incontinence pads provided. * Gris Gallagher RN - 03/19/2022 11:54 AM EDT Care Management Pre-Op planning note Source of information: Chart Review Sissy Eugene is planning to have a Right TKA on 03/21/2022. DME: They have a walker or other appropriate DME and will bring it with them on day of surgery PT plan: They will be seen and evaluated by [facility] PT prior to discharge. Their post-discharge PT planis: [facility] PT. 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 They have requested a referral to [facility]. No perceived barriers to same-day discharge. Gris Gallagher RN [facility] 03/19/22 11:54 AM documented in this encounter H&P Notes * Mayuri Pearce MD - 03/21/2022 5:36 AM EDT INTERVAL ORTHOPAEDIC HISTORY AND PHYSICAL The patient's history and physical exam have been reviewed and completed. There has been no interval change from that of the pre-operative history and physical exam done within the last 30 days. EXAM: Cardiac: Regular rate, rhythm, no m/r/g Lungs: Clear to ascultation bilaterally Plan for OR for TKA. Mayuri Pearce MD Orthopaedic Surgery documented in this encounter Miscellaneous Notes * Initial Assessments - Geoffrey Sanchez PT - 03/21/2022 1:56 PM EDT Inpatient Physical Therapy Evaluation Treatment visit: Staff Recommendations: Mobility and Positioning Recommendations: ?? Patient to utilize independently and Devices: rolling walker for ambulation and transfers with nursing. ?? Please encourage up to chair for meal times as able. ?? Patient encouraged to ambulate frequently with staff, getting into the bathroom for toileting and walking out in the lacy >/= 3 times daily as able. Discharge Planning: ??? Equipment needs: walker, front wheeled ??? Recommended discharge setting: home with home health ??? Anticipated rehab frequency and duration: once Discharge recommendation is based on the patient's current physical impairments, prior functional status, potential to return to prior level of function, patient motivation, reported home support, potential for functional gains, current level of endurance, reported home environment and anticipated trajectory of progress and may change based on patient progress during this hospitalization. Patient profile: Sissy Eugene is a 56 y.o. handed female admitted on 03/21/[address] Chilo Valdez MD for R TKA. Patient with the following active problems: Past Medical History: Diagnosis Date ??? Anemia see chart ??? 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 Motion sickness ??? Postoperative anemia due to acute blood loss Past Surgical History: Procedure Laterality Date ??? SECTION x3 ??? FOOT SURGERY Left 2nd toe ??? INGUINAL HERNIA REPAIR ??? JOINT REPLACEMENT Left knee ??? PRO OSTEOTOMY METATARSAL (NOT 1ST) Left 10/01/2015 OSTEOTOMY, METATARSAL, OTHER THAN FIRST, EACH performed by Stanley Koo MD at [facility] ??? PRO REVISE KNEE JOINT REPLACE, 1 PART Left 02/10/2019 @TOTAL KNEE REVISION ARTHROPLASTY, ONE COMPONENT (WRVU 21.12) performed by Rod Valdez MD [facility] MAIN OR ??? PRO REVISE KNEE JOINT REPLACE, 1 PART Left 03/14/2021 TOTAL KNEE REVISION ARTHROPLASTY, ONE COMPONENT (WRVU 21.12) performed by Rod Valdez MD at [facility] MAIN OR ??? PRO XFER SINGLE SUPERFICI LOW LEG TENDON Left 10/01/2015 TENDON TRANSFER, ANKLE, SUPERFICIAL performed by Stanley Koo MD at [facility] ??? TISSUE TRANSFER ACL cadaver tissue ??? TONSILLECTOMY AND ADENOIDECTOMY Active Non-Hospital Problems Diagnosis ??? Plantar fasciitis, right ??? Leona sign present in right knee ??? Primary osteoarthritis of right knee ??? S/P revision of total knee, left Courtney 03/14/21 ??? Closed fracture of distal end of left radius with routine healing, DOI: 09/05/2019 ??? Obesity, Class II, BMI 35-39.9 ? ? s/p left knee I&D, polyethylene exchange for acute PJI with Dr. Valdez 02/10/19 ??? 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 I can do this. Same as I do have done for all the other surgeries ?? Objective: Patient seen for evaluation today. Pain Assessment Pain Level: 0 Cognition: oriented x 4; Follows Commands (Cognition): WFL; Behaviors: cooperative; Mental Status: pleasant Range of Motion: General Range of Motion: LLE WFL Strength: Strength: LLE WFL, RLE WFL Sensory: Sensory Assessment (Somatosensory) Sensory Subjective Reports: paresthesia Vision: No deficits observed Mobility: Supine / Sit Supine / Sit Mobility: Independent Ambulation Ambulation: Modified Independent with (see comment) Assistive Equipment: FWW Ambulation Distance (feet): 400 Sit / Stand Sit to Stand: Modified Independent Assistive Equipment: FWW Stairs Stairs: Modified Independent Assistive Equipment: FWW Number of Stairs: 1 Balance: Static Balance Seated: Good Standing: Fair Dynamic Balance Seated: Good Standing: Fair AM-PAC: AM-PAC Basic Mobility 6 Click AM-PAC Mobility 6 Click Completed?: Yes Turning from your back to your side while in a flat bed w/o using handrails?: 4 - None Standing up from a chair using your arms (e.g. wheelchair, or bedside commode)?: 4 - None Moving from lying on your back to sitting on the side of a flat bed w/o using bedrails?: 4 - None Moving to and from a bed to a chair (including a wheelchair): 4 - None To walk in hospital room?: 4 - None Climbing 3-5 steps with a railing?*: 4 - None AM-PAC Basic Mobility Raw Score: 24 Basic Mobility Standardized T-Scale Score: 57.68 Basic Mobility CMS 0-100%: 0 Skin: not examined Education: patient has been educated on Bed mobility, Transfers, Assistive device/technique, Stairs, Positioning, Safety , Precautions/protocol, Equipment use, Car transfers, Gait , Home program, Role of therapy, Balance and Discharge planning and verbalize and demonstrate understanding. Patient status, treatment, and mobility recommendations discussed with nursing. Assessment: Sissy Eugene was seen today for physical therapy evaluation. Patient is a 56-year-old woman several hours status post right TKA. She is recovering well and seen in the PACU. She is safe/independent with functional mobility tasks utilizing rolling walker including a single step up/down she will need to negotiate to get into her home. No additional acute PT needs are identified and no further visits planned. Patient is appropriate to discharge home as planned. The patient would benefit from skilled therapy services while in the hospital to maximize functional abilities. Discharge Recommendations: Based on the current findings, Anticipated Discharge Disposition (PT): home with home health when medically ready for hospital discharge. Goals: Short Term Goals: Tuber Machine Operator Goals: Plan: Therapy Frequency (PT): once for therapy including Therapeutic Activity, Gait, Patient / Family Education, Discharge Planning. Patient/family understand and agree with plan as stated above. Level of Eval Complexity Total # of Factors: 1-2 Body System / Element Factors: 3+ Clinical Presentation: evolving / fluctuating Clinical Decision Making Complexity Score: Low Timed Code Treatment: 15 minutes Untimed CodeTreatment: 10 minutes Total Treatment Time: 25 minutes Geoffrey Sanchez PT Physical Therapy Inpatient Rehabilitation Department * Initial Assessments - Julia Espinal, OT - 03/21/2022 1:54 PM EDT Inpatient Occupational Therapy Evaluation Treatment visit: 1 Staff Recommendations: Discharge Planning: ??? Equipment needs: walker, front wheeled ??? Recommended discharge setting: home with home health ??? Anticipated rehab frequency and duration: 1-2 more times Discharge recommendation is based on the patient's current physical impairments, prior functional status, potential to return to prior level of function, patient motivation, reported home support, potential for functional gains, current level of endurance, reported home environment and anticipated trajectory of progress and may change based on patient progress during this hospitalization. Patient profile: Sissy Eugene is a 56 y.o. female admitted on 03/21/2022 for Status post right total knee. Past Medical History: Diagnosis Date ??? Anemia see chart ??? 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 Motion sickness ??? Postoperative anemia due to acute blood loss Past Surgical History: Procedure Laterality Date ??? SECTION x3 ??? FOOT SURGERY Left 2nd toe ??? INGUINAL HERNIA REPAIR ??? JOINT REPLACEMENT Left knee ??? PRO OSTEOTOMY METATARSAL (NOT 1ST) Left 10/01/2015 OSTEOTOMY, METATARSAL, OTHER THAN FIRST, EACH performed by Stanley Koo MD at [facility] ??? PRO REVISE KNEE JOINT REPLACE, 1 PART Left 02/10/2019 @TOTAL KNEE REVISION ARTHROPLASTY, ONE COMPONENT (WRVU 21.12) performed by Rod Valdez MD [facility] MAIN OR ??? PRO REVISE KNEE JOINT REPLACE, 1 PART Left 03/14/2021 TOTAL KNEE REVISION ARTHROPLASTY, ONE COMPONENT (WRVU 21.12) performed by Rod Valdez MD at [facility] MAIN OR ??? PRO XFER SINGLE SUPERFICI LOW LEG TENDON Left 10/01/2015 TENDON TRANSFER, ANKLE, SUPERFICIAL performed by Stanley Koo MD at [facility] ??? TISSUE TRANSFER ACL cadaver tissue ??? 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 Cognition: oriented x 4; Follows Commands (Cognition): WFL; Behaviors: cooperative; Mental Status: pleasant Sensory: Sensory Assessment (Somatosensory) Sensory Assessment (Somatosensory): (Reports ongoing numbness at her buttocks) Vision: No deficits observed Mobility: Ambulation Ambulation: Modified Independent Assistive Equipment: FWW Ambulation Distance (feet): 150' x 2 Sit / Stand Sit to Stand: Independent Assistive Equipment: FWW Toilet Toilet Transfer: Modified Independent Assistive Equipment: FWW ADLs / IADLs: Dressing Dressing: Upper Body, Lower Body Bra: Independent Network Support Analyst Top: Independent Pants: Independent Socks: Independent Shoes: Independent Toileting: in bathroom, Independent Motor Skills: Standing Balance: Intact Sitting Balance: Intact Special Tests: AM-[facility] Activity Completed?: Yes How much help from another person does the patient currently need putting on and taking off regularlower body clothing?: 4 - None How much help from another person does the patient currently need with bathing (including washing, rinsing, drying)?: 4 - None How much help from another person does the patient currently need with toileting, which includes using toilet, bedpan or urinal?: 4 - None How much help from another person does the patient currently need putting on and taking off regularupper body clothing?: 4 - None How much help from another person does the patient currently need taking care of personal grooming such as brushing teeth?: 4 - None How much help from another person does the patient currently need eathing meals?: 4 - None AM-[facility] Daily Activity Raw Score: 24 Daily Activity T-Scale Score: 57.54 Daily Activity CMS 0-100% Score: 0 Communication: WFL Strength: Strength: LUE WFL, RUE WFL Range of Motion: LUE ROM ROM Left Upper Extremity: Left Upper Extremity WFL RUE ROM ROM Right Upper Extremity: Right Upper Extremity WFL Skin: not examined Education: patient have been educated on Role of occupational therapy/rehabilitation and demonstrates understanding. Patient status, treatment, and mobility recommendations discussed with nursing. Assessment: Patient has been seen for occupational therapy evaluation. Sissy Eugene presents with the following performance skill deficits and client factors: decreased sitting / standing balance, sensory deficits and compromised mobility status. These performance deficits have led to activity limitations and participation restrictions in the following areas of occupation: transfers / mobility, home management and community mobility. However, despite the deficits listed above patient demonstrates the ability to demonstrate independence with upper and lower body dressing completion of toileting testing safe use of rolling walker for functional mobility. Anticipate that patient will return home with assistance once medically ready. Do not anticipate further OT needs while hospitalized. Anticipated Discharge Disposition (OT): home with home health Other Recommendations: No other consults recommended at this time. Goals: Snf Goals - OT Snf Goals to be met by: 03/21/22 Patient will: Demonstrate the completion of upper body self-care Level of Assistance: independently Status: Met Demonstrate the completion of lower body self-care Level of Assistance: independently Status: Met Plan: Therapy Frequency (OT): 1-2 more times Planned OT interventions: ADL Training Level of Eval Complexity History: Brief history including review of medical record - Low Examination: Identification of 1-3 performance deficits - Low Level of Assistance: No comorbidities that affect occupational performance: modification of tasks or assistance is not needed to complete eval - Low Clinical Decision Making Complexity Score: Low - 40486 Timed Code Treatment: 30 minutes Untimed CodeTreatment: 10 minutes Total Treatment Time: 40 minutes Julia Espinal OT Occupational Therapy Inpatient Rehabilitation Department * Op Note - Rod Valdez MD - 03/21/2022 8:06 AM EDT [facility] Operative Note [address] Patient Name: Sissy Eugene : [id number] MR#: [id number] Case Date: 03/21/2022 Case Scheduled Time: 729 Surgeon: Surgeon(s) and Role: * Rod Valdez MD - Primary * Mayuri Pearce MD - Resident Preoperative diagnosis: Right Knee DJD Postoperative diagnosis: Right Knee DJD Procedure(s) (LRB): TOTAL KNEE ARTHROPLASTY (WRVU 20.72) (Right) MODIFIER MEDACTA-TOTAL KNEE (Right) Anesthesia: Spinal Estimated Blood Loss: 200cc Specimens removed during surgery: None Drains: * No LDAs found * Surgical Closure: Primary Closure - skin incision is completely closed without any wires, priyanka, drains or other devices Disposition: aroused from sedation, and taken to the recovery room in a stable condition Condition: doing well without problems Complications: none (Please see the Surgical Encounter Summary for any Implant and Specimen details pertinent to this patient.) Right TKR Post OP RT Intra Op Knee Flexion (degrees): 125 RT Intra Op Knee Extension (degrees): 0 RT Intra Op Stability Ap Translation: <5mm RT Intra Op Stability Varus: <5mm RT Intra Op Stability Valgus: <5mm RT Lateral Release Performed: No RT Intra Op Bone Cement : Standard RT Surgical Prep: Chloroprep RT Intra Op Surgical Approach: Quad Split RT Intra Op FX at Index Surgery: No RT Skin Closure: Subcuticular Indications for the Procedure: Ms. Eugene is a 56 y.o. year old female who has been followed in the out-patient clinic with a history of progressively worsening right knee pain secondary to degenerative arthritis. After having failed conservative, non-surgical attempts at managing the pain and limitations of functional capabilities, it was felt that the only remaining option was surgical. A detailed conversation regarding the risks and benefits of knee arthroplasty was had with the patient. The risks discussed included but were not limited to: bleeding (which may or may not require transfusion), infection, damage to nervesor blood vessels, deep venous thrombosis, pulmonary embolus, prosthetic failure, loosening, prosthetic fracture, femur patella or tibia fracture, persistent pain, need for future surgery, medical complications (including cardiac, respiratory and neurologic complications), anesthetic complications, and . Subsequent to this conversation, all of the patient???s questions were answered in great detail and informed consent was obtained for a right total knee arthroplasty. She received preoperative medical clearance and was felt optimized for surgery. Today, she identified the right knee as the correct operative side. Implants: Femur: Medacta GMK Sphere Size 4+ Tibia: Medacta GMK, Size 4 Poly: 12mm fixed platform, medially constrained, cruciate retaining EX Patella: Size 2 offset oval Intraoperative Findings: Arthritic changes in all three compartments worse in the medial compartment of the knee as evidenced by loss of cartilage, exposed eburnated bone and osteophyte formation. ACL intact. Procedure: The patient was met in the pre-operative holding area where the appropriate site was marked, 24 hour update performed, and the pre-operative checklist completed. She was then brought to the operatingroom on a stretcher and transferred to the OR table where the above anesthetic was administered. Venodynes were applied to the non-operative leg. A blue towel was wrapped around the proximal thigh asa barrier. A foot post and thigh post were placed to aid in intra-op leg positioning. A clinical time-out was held confirming the correct patient name, MRN, , planned procedure, site, antibiotic start time and agent, and outline of any surgical concerns. All in attendance were in agreement to proceed. Cefazolin 2g IV and weight based dosing of tranexamic acid was administered prior to making an incision. Skin Preparation: The skin of the lower extremity was prepped using chloraprep x 2. The prep was allowed to fully dryand sterile drapes were applied. Surgical Approach: Marcaine was injected into the soft tissue under the proposed incision site. The knee was flexed and a knife was used to incise the skin from 3 finger breadths above the patella to just medial to thetibial tubercle. Hemostasis was obtained using electrocautery and small full thickness skin flaps were elevated just enough to identify the extensor mechanism. A medial parapatellar arthrotomy was performed leaving a 2mm cuff of tendon for later repair. Electrocautery was used to cauterize bleeders. A Z retractor was placed medially within the knee to place the tissues on tension and a triangle of fat pad was removed with the anterior 1/3 of the medial meniscus. A medial peel was then performedaround the tibia to the mid coronal line. Overhanging tibial and femoral osteophytes were removed. The knee was then placed into extension. A bent katy was placed around the femur laterally and thefat pad from the inferior nose of the patella was excised down to the tibia exposing the lateral plateau. The patella tendon was retracted with a Z retractor and the lateral plateau was exposed from the joint line distally exposing the anterior lateral plateau towards the region of Gerdy's tubercle to create a symmetric soft tissue peel. Patella: With the knee in extension the patella was measured with the caliper to be 21mm thick. Towel clips were placed in the extensor mechanism above and below the patella and it was then cut across the osteochondral junction using a freehand technique. The patella template was placed over the patella in alignment perpendicular to the mechanical axis of the leg and lug holes were drilled. The size 2 offset oval patellar trial was placed and gave appropriate coverage. Final thickness was checked and was 23mm. Femur: The knee was then brought up into flexion with the patella everted. The anterior horn of the lateral meniscus was released with the bovie. A bent katy was placed laterally to retract the patella and extensor mechanism. A Z retractor was placed medially to protect the MCL. A step drill was used togain access to the femoral canal approx 5mm anterior to the top of the femoral notch. The drill wasslowly advanced into the femoral canal. The canal was irrigated and suction was used to remove fat and bone from the canal. The distal femoral guide was then advanced approx 8-10cm into the femoral canal. The kinematic guide was set with medial worn and lateral unworn. A threaded headed pin was used to hold the guide medially. The cutting block was then placed on the anterior femur and pinned. Anoscillating saw was used to cut the distal femur and the caliper was used to confirm 6 mm resectionfrom the worn medial side and 8mm resection from the unworn lateral side. The pins and cutting block were removed. The posterior referencing sled was then positioned across the posterior condyles at 0 degrees of rotation. Smooth pins were placed through the posterior referencing holes and the stylus was then usedto measure a size 4+ femur off the anterior lateral cortex. The sled was removed and the appropriate sized 4 in 1 cut guide was placed. We first made our posterior medial cut with a small blade protecting the MCL with Z retractor. The was measured at 7mm witha caliper to assure we were restoring the appropriate anatomy of our flexion space. Happy with our cut we then made our posterior lateral cut protecting popliteus with a retractor, which also measured 7mm. The block was then secured with 6.5mm cancellous screws. We proceeded to make our anterior and chamfer cuts. We then removed the cutting block, pins, and screws. Tibia: A sharp bent katy was placed behind the ACL and this was released. The katy was then placed posterior medially behind the tibia and it was subluxed anterior. An extramedullary tibial cut guide was placed over the anterior proximal tibia in line with the tibial crest and centered over the talus.The rotation of the tibia was set parallel to the lateral tibial plateau. The guide was moved into varus to match the anatomic tibial coronal alignment. An tang wing was used to set the slope even to the anatomic posterior slope. We used the stylus to measure the depth of resection at 10mm from the lateral and medial sides of the tibial spines. The cutting guide was pinned and the cut was made wi th an oscillating saw. The bone was freed of soft tissue attachment and the calipered measured 10mmlateral and 9mm medial to the spines. Soft tissue resection and balancing: The laminar handicapper harness racing was used to elevate the femur and a Lotke osteotome was used to remove any posterior osteophyte. On the medial side we removed the remaining meniscus and then ressected posteriorosteophyte. We removed the remaining lateral meniscus and then ressected posterior osteophyte. 25ccof the pericapsular injection of ropivicaine with epi, 50mcg clonidine, and 30mg of toradol was infiltrated into the posterior soft tissue, taking care to avoid injection around the peroneal nerve. The remaining 25cc was then injected into the periosteum and synovium around the distal femur and proximal tibia. The knee was then placed into extension and a 11 spacer block was placed into the extension space. There was symmetric laxity and the spacer block was increased to 12mm. The knee obtained full extension and was balanced to varus and valgus stress with virtually no laxity medial or lateral. At 90 degrees of flexion the 12mm spacer block had 0mm of laxity medially and 2-3mm of lateral laxity. A medial pivot was present in flexion. I was happy with the balance with the 12mm block and no recuts were made. The spacer block and any remaining pins were removed. Final preparation and Trials: The knee was then brought into flexion again and subluxed anterior with a PCL retractor. The appropriated sized tibial trial was placed in appropriate external rotation aligned with the medial 1/3 ofthe tibial tubercle. This allowed the tray to be flush with the bone posterior laterally and anterior medially. The trial was pinned in place and the tibia was prepared using the appropriate tower with reamer and keel punch. The knee was placed at 90 degress and the femoral trial was placed and impacted. Any remaining osteophyte was removed. The lug holes on the femur were drilled. The trials were then removed. The anterior flange milling guide was placed in the lug holes and britton was used toprepare the anterior femur. Final Implants: The knee was then copiously irrigated with pulse lavage to clear all bony surfaces of debris and blood. Two bags of medium viscosity cement were opened and mixed under vacuum suction. Cement was buttered over the entire underside of the tibial component, placed on the posterior condyles of the femoral component and over the patellar component. Cement was then pressurized by hand onto the cleaned and dried tibial surface. The tibial implant was placed in the appropriate orientation and impacted into the bone. Excess cement was removed. The tibial polyethylene was inserted and impacted into place. The tibia was then reduced under the femur. Cement was pressurized by hand onto the exposed femoral bony surfaces and then the femoral component was aligned with the lug holes and impacted. Excesscement was removed. The knee was brought into extension and loaded. The patella was then irrigated with pulse lavage and the patella button with cement was placed over the pre-drilled lug holes. Thiswas held in place with a patella clamp and excess cement was removed. The knee was flexed and any remaining cement that had been expressed was removed. Once the cement was hardened the patella clamp was removed and the knee was irrigated one last time. The knee was brought through a final range of motion which demonstrated varus/valgus and anterior/posterior stability with appropriate patella tracking. Closure: The knee was placed in 90 degrees of flexion and the arthrotomy was closed initially with 0 vicryl tacking sutures which was over sewn with a #2 barbed running suture. The deep layers were closed with with a running 0 vicryl. The superficial layers were closed with a interrupted 2-0 vicryl. The skin was closed with a running 3-0 monocryl. The skin was sealed with skin glue. A sterile Mepilex Ag dressing was applied. A cryocuff was applied. The needle, sponge and instrument counts were correct at the end of the procedure. Attestation: Case Date: 03/21/2022 I was present and I participated during the entire procedure (does not need to include opening and closing). Rod Valdez MD 03/21/2022 Post-operative Plan: (avoid IV narcotics) ?? 5-10 mg Oxycodone Q 4 hours po PRN ?? 2 mg Dilaudid po for breakthrough pain q 3-4 hours?? PRN ?? for breakthrough pain 15 mg Toradol iv or im q 6 hours (max 4 doses) ?? 1000mg Tylenol po??? q8 hour ?? Tramadol 50mg q6hr PRN if patient sensitive to narcotics ?? Naprosyn 500mg bid x 4 weeks at discharge ?? Dexamethasone 4 mg po q 24 hours for 2 days (if diabetic add SSI) ?? Protonix 20mg qd x 2 weeks (or other PPI) ?? Zofran 4 mg po/iv q 8 hours PRN nausea ?? Encourage voiding q 4 hours. If unable to void bladder scan and encourage to void in 30 minutes.If PVR > 400 then straight cath. ?? No post operative antibiotics needed ?? Weight bearing status of operative extremity: Weight bearing as tolerated ?? Wound closure: Subcuticular absorbable suture with skin glue ?? Dressing changes: Mepilex Silver (Do not change for 7 days then a dry sterile dressing) ?? Follow-up Plan: As scheduled prior to surgery (approx. 4 weeks with x-rays) ?? Anticoagulation: ASA 81mg BID for 30 days ?? Any possible barriers to discharge: None ?? Plan for hospital stay: Standard/same day ?? Anticipated Length of Stay: 0-1 days Implant Summary: Implant Name Type Inv. Item Serial No. Rail Manager Lot No. LRB No. Used Action CEMENT BONE MEDIUM VISCOSITY 40GM SINGLE DOSE PMMA SMARTSET ([id number]) (AutoReq) - [id number] IMPLANTS CEMENT BONE MEDIUM VISCOSITY 40GM SINGLE DOSE PMMA SMARTSET ([id number]) (AutoReq) [employer] [facility] [id number] Right 2 Implanted COMP PATELLAR KNEE SIZE 2 RESURFACING UHMWPE GMK E CROSS ([id number]) (AUTOREQ) - [id number] IMPLANTS COMP PATELLAR KNEE SIZE 2 RESURFACING UHMWPE GMK E CROSS ([id number]) (AutoReq) [employer] [place] - [employer] [place] Right 1 Implanted BASEPLATE TIBIAL SZ 4 RIGHT JULIA COCR GMK ([id number]) (AUTOREQ) - [id number] IMPLANTS BASEPLATE TIBIALSZ 4 RIGHT JULIA COCR GMK ([id number]) (AutoReq) [employer] [place] - [employer] [place] [id number] Right 1 Implanted INSERT TIBIAL 12MM SZ 4 RT FIX POLY GMK E CROSS ([id number]) (AUTOREQ) - [id number] IMPLANTS INSERT TIBIAL 12MM SZ 4 RT FIX POLY GMK E CROSS ([id number]) (AutoReq) [employer] [place] - [employer] [place] [id number] Right 1 Implanted COMP FEMORAL KNEE SZ 4+ RIGHT JULIA PS COCR ([id number]) (AUTOREQ) - [id number] IMPLANTS COMP FEMORAL KNEE SZ 4+ RIGHT JULIA PS COCR ([id number]) (AutoReq) [employer] [place] - [employer] [place] [id number] Right 1 Implanted documented in this encounter Plan of Treatment Scheduled Referrals Name Type Priority Associated Diagnoses Orde r Schedule Referral to Home Health Outpatient Referral Routine Primary osteoarthritis of right knee Ordered: 03/21/2022 documented as of this encounter Procedures Procedure Name Priority Date/Time Associated Diagnosis Comments MODIFIER MEDACTA-TOTAL KNEE 03/21/2022 7:44 AM EDT Right Knee DJD Arthroplasty Knee Condyle & Plateau Medial & Lat Compartments ([id number]) 03/21/2022 7:44 AM EDT Right Knee DJD documented in this encounter Visit Diagnoses Not on filedocumented in this encounter Administered Medications Inactive Administered Medications - up to 3 most recent administrations Medication Order MAR Action Action Date Dose Rate Site acetaminophen (Tylenol) tablet 650 mg 650 mg, Oral, EVERY 6 HOURS PRN, Starting on Thu03/21/22 at 0635, Until Thu03/21/22 at 1603, Pain, Maximum dose of acetaminophen is 4000 mg from all sources in 24 hours. When ordered for pain, acetaminophen should be given even when other ordered pain medications are indicated. , Routine acetaminophen (Tylenol) tablet 975 mg 975 mg (rounded from 1,000 mg), Oral, ONCE, 1 dose, On Thu03/21/22 at 0630, Administer on arrival in Same Day Program, Day of Surgery (Day of Procedure), Routine Given 03/21/2022 6:31 AM EDT 975 mg BUpivacaine-EPINEPHrine (Marcaine-epiNEPHrine) 0.25 %-1:200,000 injection ONCE PRN, Starting on Thu03/21/22 at 0805, Until Thu03/21/22 at 1344, Intra-Operative (Intra-Procedure), Routine Given 03/21/2022 9:09 AM EDT 50 mLs 19- Surgical Site Given 03/21/2022 8:05 AM EDT 30 mLs 19 - Surgical Site celecoxib (CeleBREX) capsule 400 mg 400 mg, Oral, ONCE, 1 dose, On Thu03/21/22 at 0630, Administer on arrival to Same Day Program, Day of Surgery (Day of Procedure), Routine Given 03/21/2022 6:31 AM EDT 400 mg cloNIDine (pf) (Duraclon) (100 mcg/mL) Epidural injection ONCE PRN, Starting on Thu03/21/22 at 0818, Until Thu03/21/22 at 1344, Intra-Operative (Intra-Procedure), Routine Given 03/21/2022 9:10 AM EDT 50 mcg 19- Surgical Site fentaNYL (PF) (50 mcg/mL) injection 12.5-25 mcg 12.5-25 mcg, Intravenous, EVERY 5 MIN PRN, Starting on Thu03/21/22 at 0901, Until Thu03/21/22 at 1312, Pain, Give 12.5 mcg every 5 minutes PRN for mild to moderate pain (1-5) Give 25 mcg every 5 minutes PRN for moderate to severe pain (6-10). Hold for respiratory rate less than 10 per minute. Maximum dose 250 mcg over one hour. If ordered with hydromorphone or morphine, give hydromorphone or morphine first and use fentanyl for breakthrough pain., PACU Recovery, Routine Given 03/21/2022 11:27 AM EDT 25 mcg ketorolac (Toradol) (30 mg/mL) injection ONCE PRN, Starting on Thu03/21/22 at 0818, Until Thu03/21/22 at 1344, Intra-Operative (Intra-Procedure), Routine Given 03/21/2022 9:10 AM EDT 30 mg 19- Surgical Site lactated ringers infusion 1,000 mL, Intravenous, CONTINUOUS, Starting on Thu03/21/22 at 0630, Until Thu03/21/22 at 1312, Day of Surgery (Day of Procedure) Restarted 03/21/2022 7:50 AM EDT New Bag 03/21/2022 6:31 AM EDT 1,000 mLs 30 mL/hr midazolam (pf) (Versed) (1 mg/mL) injection 1 mg 1 mg, Intravenous, EVERY 5 MIN PRN, Starting on Thu03/21/22 at 0614, Until Thu03/21/22 at 1312, Other, sedation or prior to injection of local anesthetic, Hold for delirium/agitation. (Maximum dose 5 mg)., Day of Surgery (Day of Procedure), Routine Given 03/21/2022 7:15 AM EDT 1 mg Given 03/21/2022 7:10 AM EDT 1 mg ondansetron (pf) (Zofran) (2 mg/mL) injection 4 mg 4 mg, Intravenous, EVERY 30 MIN PRN, 2 doses, Starting on Thu03/21/22 at 0901, Until Thu03/21/22 at 1312, Nausea, Vomiting, May repeat 4 mg once in 30 minutes for a maximum dose of 8 mg. If patient has received initial dose of 4 mg in the OR then do not repeat dose. If multiple antiemetics are ordered, use promethazine first and if ineffective use ondansetron second and if ineffective use prochlorperazine third and if ineffective use metoclopramide., PACU Recovery, Routine Given 03/21/2022 11:43 AM EDT 4 m g oxyCODONE (Roxicodone) tablet 5 mg 5 mg, Oral, EVERY 4 HOURS PRN, Starting on Thu03/21/22 at 0635, Until Thu03/21/22 at 1603, Pain, Routine Given 03/21/2022 10:01 AM EDT 5 mg oxyCODONE (Roxicodone) tablet 5 mg 5 mg, Oral, ONCE, 1 dose, On Thu03/21/22 at 1145, PACU Recovery, Routine Given 03/21/2022 11:26 AM EDT 5 mg documented in this encounter Active and Recently Administered Medications Times are shown in EDT. Scheduled Medication Order 03/19/2022 03/20/2022 03/21/2022 acetaminophen (Tylenol) tablet 975 mg (COMPLETED) 975 mg (rounded from 1,000 mg), Oral, ONCE, 1 dose, On Thu03/21/22 at 0630, Administer on arrival in Same Day Program, Day of Surgery (Day of Procedure), Routine 0631 (Given - Provid er: Stephen Sanchez I, RN) ceFAZolin (Ancef) 2 g vial attach to sodium chloride 0.9% 100 mL Mini-Bag Plus (COMPLETED) 2 g, Intravenous, EVERY 3 HOURS, 1 dose, First dose on Thu03/21/22 at 0630, Administer over 30 Minutes, Re-dose after 3 hours., Intra-Operative (Intra-Procedure), Indication for (Active or Suspected): Prophylaxis 0750 (New Bag - Prov ider: Liliana Miller CRNA) celecoxib (CeleBREX) capsule 400 mg (COMPLETED) 400 mg, Oral, ONCE, 1 dose, On Thu03/21/22 at 0630, Administer on arrival to Same Day Program, Day of Surgery (Day of Procedure), Routine 0631 (Given - Provid er: Stephen Crockett RN) oxyCODONE (Roxicodone) tablet 5 mg (COMPLETED) 5 mg, Oral, ONCE, 1 dose, On Thu03/21/22 at 1145, PACU Recovery, Routine 1126 (Given - Provid er: Stephen Crockett RN) tranexamic acid (Cyklokapron) 1,667 mg in sodium chloride 0.9% 116.67 mL infusion (COMPLETED) 1,667 mg (rounded from 1,666.5 mg = 15 mg/kg/dose ? 111.1 kg), Intravenous, ONCE, 1 dose, On Thu03/21/22 at 0630, Administer over 30 Minutes, Day of Surgery (Day of Procedure) 0800 (New Bag - Prov ider: Liliana Miller CRNA) Continuous Medication Order 03/19/2022 03/20/2022 03/21/2022 lactated ringers infusion (CANCELED) 1,000 mL, Intravenous, CONTINUOUS, Starting on Thu03/21/22 at 0630, Until Thu03/21/22 at 1312, Day of Surgery (Day of Procedure) 0631 (New Bag - Prov ider: Stephen Crockett RN)0749 (Paused - Provider: Liliana Miller CRNA - Comment: Switch to gravity)0750 (Restarted - Provider: Liliana Miller CRNA)0942 (Anesthesia Volume Adjustment - Provider: Liliana Miller CRNA) PRN Medication Order 03/19/2022 03/20/2022 03/21/2022 acetaminophen (Tylenol) tablet 650 mg 650 mg, Oral, EVERY 6 HOURS PRN, Starting on Thu03/21/22 at 0635, Until Thu03/21/22 at 1603, Pain, Maximum dose of acetaminophen is 4000 mg from all sources in 24 hours. When ordered for pain, acetaminophen should be given even when other ordered pain medications are indicated. , Routine BUpivacaine-EPINEPHrine (Marcaine-epiNEPHrine) 0.25 %-1:200,000 injection (CANCELED) ONCE PRN, Starting on Thu03/21/22 at 0805, Until Thu03/21/22 at 1344, Intra-Operative (Intra-Procedure), Routine 08 (Given - Provid er: Rod Valdez MD - Comment: 30 ML 0.25% marcaine injected prior to incision)908 (Given - Provider: Rod Valdez MD - Comment: 50 mL 0.25%marcaine + 30 mg Toradol + 50 mcg Clonidine) cloNIDine (pf) (Duraclon) (100 mcg/mL) Epidural injection (CANCELED) ONCE PRN, Starting on Thu03/21/22 at 0818, Until Thu03/21/22 at 1344, Intra-Operative (Intra-Procedure), Routine 09 (Given - Provid er: Rod Valdez MD - Comment: 50 mL 0.25%marcaine + 30 mg Toradol + 50 mcg Clonidine) fentaNYL (PF) (50 mcg/mL) injection 12.5-25 mcg (CANCELED) 12.5-25 mcg, Intravenous, EVERY 5 MIN PRN, Starting on Thu03/21/22 at 0901, Until Thu03/21/22 at 1312, Pain, Give 12.5 mcg every 5 minutes PRN for mild to moderate pain (1-5) Give 25 mcg every 5 minutes PRN for moderate to severe pain (6-10). Hold for respiratory rate less than 10 per minute. Maximum dose 250 mcg over one hour. If ordered with hydromorphone or morphine, give hydromorphone or morphine first and use fentanyl for breakthrough pain., PACU Recovery, Routine 1127 (Given - Provid er: Stephen Crockett RN) ketorolac (Toradol) (30 mg/mL) injection (CANCELED) ONCE PRN, Starting on Thu03/21/22 at 0818, Until Thu03/21/22 at 1344, Intra-Operative (Intra-Procedure), Routine 09 (Given - Provid er: Rod Valdez MD - Comment: 50 mL 0.25%marcaine + 30 mg Toradol + 50 mcg Clonidine) midazolam (pf) (Versed) (1 mg/mL) injection 1 mg (CANCELED) 1 mg, Intravenous, EVERY 5 MIN PRN, Starting on Thu03/21/22 at 0614, Until Thu03/21/22 at 1312, Other, sedation or prior to injection of local anesthetic, Hold for delirium/agitation. (Maximum dose 5 mg)., Day of Surgery (Day of Procedure), Routine 0710 (Given - Provid er: Stephen Crockett RN)0715 (Given - Provider: Stephen Crockett RN) ondansetron (pf) (Zofran) (2 mg/mL) injection 4 mg (CANCELED) 4 mg, Intravenous, EVERY 30 MIN PRN, 2 doses, Starting on Thu03/21/22 at 0901, Until Thu03/21/22 at 1312, Nausea, Vomiting, May repeat 4 mg once in 30 minutes for a maximum dose of 8 mg. If patient has received initial dose of 4 mg in the OR then do not repeat dose. If multiple antiemetics are ordered, use promethazine first and if ineffective use ondansetron second and if ineffective use prochlorperazine third and if ineffective use metoclopramide., PACU Recovery, Routine 1143 (Given - Provid er: Stephen Crockett RN) oxyCODONE (Roxicodone) tablet 5 mg 5 mg, Oral, EVERY 4 HOURS PRN, Starting on Thu03/21/22 at 0635, Until Thu03/21/22 at 1603, Pain, Routine 1001 (Given - Provid er: Stephen Crockett RN) documented in this encounter Care Teams Event Planner Relationship Specialty Start Date End Date Sari Hay MD [facility] [address] [place] [address] PCP - General 05/21/11 documented as of this encounter
--- OUTSIDE RECORDS SUMMARY | 2024-04-26 15:47 | XMS_ITS | Encounter Summary ---
Author Organization [facility] Address [facility] [place] [address] Care Team Providers Care Product Development Actuary Name Role Phone Sari Hay MD Primary Care Provider [phone] Reason for Visit * Reason Comments Follow-up Discuss MRI results from 01/24/22 and Right TKA Encounter Details Date Type Department Care Team (Late st Contact Info) Description 01/29/2022 3:00 PM EDT Office [place] [address] Rod Covarrubias MD [facility] [place] [address] Primary osteoarthritis of right knee; Pain of right lower extremity Social History Tobacco Use Types Packs/Day Years Used Date Smoking Tobacco: Former Cigarettes 0.5 15 1 - 07/18/2003 Smokeless Tobacco: Never Alcohol Use Standard Drinks/Week Comments Yes 0 (1 standard drink = 0.6 oz pur e alcohol) less than 1 per week Sex and Gender Information Value Date Recorded Sex Assigned at Not on file Gender Identity Not on file Sexual Orientation Not on file documented as of this encounter Last Filed Vital Signs Vital Sign Reading Time Taken Comments Blood Pressure 128/96 01/29/2022 3:06 PM EDT Pulse 62 01/29/2022 3:06 PM EDT Temperature - - Respiratory Rate - - Oxygen Saturation - - Inhaled Oxygen Concentration - - Weight 111.1 kg (245 lb) 01/29/2022 3:06 PM EDT Height 177.8 cm (5' 10) 01/29/2022 3:06 PM EDT Body Mass Index 35.15 01/29/2022 3:06 PM EDT documented in this encounter Progress Notes * Teressa Taylor PA - 01/29/2022 3:00 PM EDT PATIENT NAME: Sissy Eugene AGE: 56 y.o. MR#: [id number] DATE OF VISIT: 01/29/2022 CHIEF COMPLAINT: FU post MRI of RIGHT knee. HISTORY OF PRESENT ILLNESS: Ms. Eugene is a 56 y.o. female who comes into clinic today for evaluation of the RIGHT knee. She points to medial and lateral joint line as pinch spots. If she is not taking NSAIDs, it is sore. When it pinches it completely stops her. The cortisone injection did help with the pain. [place] the [place] and she has been given a parking spot in front of the building that she lives in because she is not sure if she can makeit across the campus. Past medical history: Patient Active Problem List Diagnosis Date Noted ??? Plantar fasciitis, right 01/20/2022 ??? Leona sign present in right knee 01/20/2022 ??? Primary osteoarthritis of right knee 01/20/2022 ??? S/P revision of total knee, left Courtney 03/14/21 03/14/2021 ??? Closed fracture of distal end of left radius with routine healing, DOI: 09/05/2019 10/29/2019 ??? Obesity, Class II, BMI 35-39.9 02/15/2019 ? ? s/p left knee I&D, polyethylene exchange for acute PJI with Dr. Covarrubias 02/10/19 02/10/2019 ??? Hammer toe of left foot 07/18/2015 Medications: ??? acetaminophen (Tylenol) 325 mg Tablet ??? ibuprofen (Advil) 200 mg Tablet ??? amoxicillin (Amoxil) 500 mg Capsule Allergies: Allergies Allergen Reactions ??? Adhesive Itching and Rash ??? Adhesive Bandage Rash ??? Codeine Nausea Only Other reaction(s): Nausea Social history: Social History Tobacco Use ??? Smoking status: Former Smoker Packs/day: 0.50 Years: 15.00 Pack years: 7.50 Types: Cigarettes Quit date: 07/18/2003 Years since quittin.5 ??? Smokeless tobacco: Never Used Substance Use Topics ??? Alcohol use: Yes Alcohol/week: 0.0 standard drinks Comment: less than 1 per week Review of systems: No chest pain or shortness of breath No fevers, night sweats or chills Vital signs: Visit Vitals BP (!) 128/96 Pulse 62 Ht 177.8 cm (5' 10) Wt 111.1 kg (245 lb) BMI 35.15 kg/m?? Imaging studies: RIGHT knee MRI show full thickness cartilage fissuring in all three compartments. Assessment: 56 y.o. year-old female with severe RIGHT Knee arthritis. Plan: We had a long discussion regarding the nature of Sissy Eugene's chief complaint. . Plan discussed in conjunction with Dr. Covarrubias. We discussed the elective management of osteoarthritis treatment. We discussed attempting conservative therapy first with [id number] anti-inflammatories such as ibuprofen or naproxen along withacetaminophen if they can be tolerated. We also discussed attempting formal physical therapy, as that can help keep core and quad musculature strong, in conjunction with focusing on range of motion. We also discussed using walking aids, continue and regular exercise along with maintaining an appropriate weight. The patient is receptive to this. We also discussed corticosteroid injection. Risks and benefits explained including but not limited to steroid flare, increase in blood glucose, infection, continued pain, bleeding, damage to nerves and vessels and can safely be given every 3-4 months. We reviewed the indications of total knee arthroplasty and the elective management of this. We discussed the procedure, recovery, and expectations post- operatively. We reviewed risks and benefits, which include but are not limited to infection, bleeding, damage to nerves and vessels, hardware failure, fracture, dislocation, blood clot, heart attack, stroke, adverse reaction to anesthesia, and continued pain. Patient demonstrates and understanding of the above. Ultimately, Sissy elected to move forward with TKA. 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 We did discuss that due to scheduling constraints I did not think this would available. Dr. Covarrubias will place orders and have Ana Rosa come in for preop visit. This plan was discussed with the patient and they are in agreement. All of the patient's questions were answered. The patient understand to contact us if they have any other questions or concerns. FU: Surgical schedulers will be calling. Teressa Taylor PA-C The above dictation was made with voice recogonition software documented in this encounter Miscellaneous Notes * Addendum Note - Rod Covarrubias MD - 01/29/2022 3:00 PM EDTAddended by: ROD COVARRUBIAS on: 01/31/2022 04:48 PM Modules accepted: Orders, SmartSet documented in this encounter Plan of Treatment Scheduled Orders Name Type Priority Associated Diagnoses Orde r Schedule SURGICAL CASE REQUEST: TOTAL KNEE ARTHROPLASTY (WRVU 20.72) Procedures Routine One Time for 1 Occurrences starting 01/31/2022 until 01/31/2022 documented as of this encounter Results * XR Knee Standing Alignment AP Lat [place] Right (04/23/2022 12:50 PM EDT) Anatomical Region Laterality Modality Knee Right Digital Radiogra phy Impressions 04/23/2022 1:16 PM EDT Uncomplicated right TKA. Thank you for letting us participate in the care of this patient. ??If you are a health care provider and have any questions regarding this report, please contact the number below. ??For patients who have questions please contact the health acute care nurse that requested your imaging first. ? Electronically signed by: Charlotte Johnson MD, [facility] ([phone]), at 04/23/2022 1:16 PM Narrative 04/23/2022 1:16 PM EDT EXAMINATION: XR KNEE STANDING ALIGNMENT AP LAT SKYLINE RIGHT CLINICAL HISTORY: History of knee replacement TECHNIQUE: Separate images of the pelvis, knees and feet were acquired in the AP projection with the patient standing. ??These images were stitched together to form a composite image of the pelvis and legs. Additional 3 views of the right knee. COMPARISON: 01/03/2022 FINDINGS: The mechanical axis of the bilateral knees is midline. There is a right total knee arthroplasty in near anatomic alignment. No periprosthetic lucency or fracture. There is no large joint effusion. There is a revised left knee arthroplasty, incompletely evaluated on this exam. Procedure Note Charlotte Johnson MD - 04/23/2022 EXAMINATION: XR KNEE STANDING ALIGNMENT AP LAT SKYLINE RIGHT CLINICAL HISTORY: History of knee replacement TECHNIQUE: Separate images of the pelvis, knees and feet were acquired inthe AP projection with the patient standing. These images were stitched togetherto form a composite image of the pelvis and legs. Additional 3 views of the right knee. COMPARISON: 01/03/2022 FINDINGS: The mechanical axis of the bilateral knees is midline. There is a right total knee arthroplasty in near anatomic alignment. No periprosthetic lucency or fracture. There is no large joint effusion.There is a revised left knee arthroplasty, incompletely evaluated on this exam. IMPRESSION Uncomplicated right TKA. Thank you for letting us participate in the care of this patient. If youare a health care provider and have any questions regarding this report,please contact the number below. For patients who have questions please contactthe health acute care nurse that requested your imaging first. Electronically signed by: Charlotte Johnson MD, [facility]([phone]), at 04/23/2022 1:16 PM Rod Covarrubias MD IMG DX ORDERABLES * APTT (03/12/2022 10:23 AM EDT) PTT 34 25 - 37 sec [facility] Comment: The PTT is NOT appropriate for heparin monitoring. Use the Anti-Xa level for heparin monitoring (HEP UFH) or LMWH monitoring (HEP LMW). A PTT less than 37 seconds generally indicates adequate hemostasis. Blood 03/12/2022 10:2 3 AM EDT 03/12/2022 10:34 AM EDT Narrative Resulting Agency Comment Spec In Lab Rod Covarrubias MD HEMATOLOGY ORDERABLE S Performing Organization Address [facility] de Phone Number [facility] [place] [address] * Prothrombin Time (03/12/2022 10:23 AM EDT) PT 11.2 9.4 - 12.5 sec [facility] INR 1.0 [facility] Comment: An INR <2.0 indicates adequate procoagulant activity for hemostasis in most patients without underlying bleeding disorders, though the INR may not adequately reflect hemostatic capacity in patients with liver disease and synthetic impairment. The recommended target INR range for therapeutic anticoagulation is 2.0 ? 3.0 for most applications, though lower and higher ranges may be appropriate depending on clinical circumstances. Blood 03/12/2022 10:2 3 AM EDT 03/12/2022 10:34 AM EDT Narrative Resulting Agency Comment Spec In Lab Rod Covarrubias MD HEMATOLOGY ORDERABLE S Performing Organization Address [facility] Co de Phone Number [facility] [place] [address] * Basic Metabolic Panel (non-fasting) (03/12/2022 10:23 AM EDT) Glucose Lvl 95 65 - 199 mg/dL [facility] Comment:Diabetes: >=200 mg/d L plus symptoms BUN 18 8 - 18 mg/dL [facility] Creatinine 0.86 0.70 - 1.20 mg/dL [facility] Sodium 142 135 - 145 mmol/L [facility] Potassium 4.4 3.5 - 5.0 mmol/L [facility] Comment: Please note: ??Patients with WBC >100,000 may have falsely elevated Potassium levels. ??For accurate Potassium quantification in these patients send serum separator tube (gold top) for subsequent determinations. ??Contact the Clinical Chemistry Laboratory if there are any questions. Chloride 106 98 - 107 mmol/L [facility] CO2 27 22 - 31 mmol/L [facility] Anion Gap 9 5 - 15 mmol/L [facility] Calcium 9.9 8.5 - 10.5 mg/dL [facility] Estimated GFR 74 >=60 mL/min/1. 73 m?? [facility] Comment: This patient? s estimated glomerular filtration rate (eGFR) is between 74 mL/min/1.73 m2 (patients with less muscle mass) and 86 mL/min/1.73 m2 (patients with more muscle mass) as determined by the CKD-EPI equation. Assessment of eGFR is not appropriate when creatinine concentrations are rapidly changing. For clinical decisions where creatinine clearance will affect therapy, a 24-hour urine creatinine clearance may be advised. Assignment of CKD stage 1 - 5 for patients with an eGFR near the transition point between stages may be based on clinical assessment of muscle mass and symptoms in addition to eGFR. Blood 03/12/2022 10:2 3 AM EDT 03/12/2022 10:34 AM EDT Narrative Resulting Agency Comment Spec In Lab Rod Covarrubias MD CHEMISTRY ORDERABLES [facility] [place] [address] documented in this encounter Visit Diagnoses Diagnosis Primary osteoarthritis of right knee Primary localized osteoarthrosis, lower leg Pain of right lower extremity Primary osteoarthritis of right knee Primary localized osteoarthrosis, lower leg Pain of right lower extremity documented in this encounter Care Teams Product Development Actuary Relationship Specialty Start Date End Date Sari Hay MD [address] [place] [address] PCP - General 05/21/11 documented as of this encounter
--- OUTSIDE RECORDS SUMMARY | 2024-04-26 15:47 | XMS_ITS | Encounter Summary ---
Author Organization [facility] Address [facility] [place] [address] Care Team Providers Care Analytical Manager Name Role Phone Sari Hay MD Primary Care Provider [phone] Reason for Visit * Auth/Cert Specialty Diagnoses / Procedures Referred By Emmanuel cisneros Referred To Contact Diagnoses Right Knee DJD Procedures PRO TOTAL KNEE ARTHROPLASTY TOTAL KNEE ARTHROPLASTY (WRVU 20.72) MODIFIER MEDACTA-TOTAL KNEE Referral ID Status Reason Start Date Expiration Date Visits Re quested Visits Authorized [id number] 1 1 Encounter Details Date Type Department Care Team (Late st Contact Info) Description 03/21/2022 7:43 AM EDT Anesthesia Event Main OR at [address] [phone] Liliana Miller CRNA [address] [place] [address] Anesthesia Record Procedure Summary Procedure Name Responsible Anesthesiologist Anesthesia Start Time Anesthesia Stop Time TOTAL KNEE ARTHROPLASTY (WRVU 19.6) (Right: Knee) Liliana Miller CRNA 03/21/22 0743 03/21/22 0948 Events Date Time Event Comment 03/21/2022 0700 0740 Spinal 0743 AN Verify 0743 Start 0745 An Start Data 0750 Anesthesia Ready 0758 An Induction 0805 Quick Note Local with epi injected by surgeon 0806 Skin Incision 0943 an stop data 0948 Recovery or ICU Handoff Kecia ent care was transferred to the destination unit staff after review of the patient's medical history, current anesthetic/surgical status and plan, according to the Provider Handoff Checklist. 0948 Stop Meds Name Total fentaNYL 75 mcg fentaNYL 25 mcg Propofol 30 mg Propofol INF 1,121.25 mg Ketamine 10 mg/mL 40 mg Ondansetron 4 mg Dexamethasone 8 mg PHENYLephrine 360 mcg tranexamic acid (Cyklokapron ) 1,667 mg in sodium chloride 0.9% 116.67 mL infusion 1,667 mg ceFAZolin (Ancef) 2 g vial a ttach to sodium chloride 0.9% 100 mL Mini-Bag Plus 2 g PHENYLephrine INF 1,160 mcg BUpivacaine 0.75% with dextrose 9 mg ROpivacaine (PF) 0.5% 15 mL Magnesium Sulfate 2 g lactated ringers infusion 800 mL * Agents Name O2 Air N2O O2 Auxiliary Flowmeter 2 * Blood No blood administrations on file. Lines, Drains, and Airways Type Details Placement Removal Incision 03/21/22; 0806; Righ t, anterior; knee; vertical 03/21/22 0806 by Allyssa Senior RN Incision 10/01/15; foot; 06/02/22 (LDA cleanup utility RA#[id number]); 1715 (LDA cleanup utility RA#[id number]) 10/01/15 0000 by Alma Hutchins RN 06/02/22 1715 by Sae Abdi Incision 02/10/19; 1209; knee ; 06/02/22 (LDA cleanup utility RA#[id number]); 1715 (LDA cleanup utility RA#[id number]) 02/10/19 1209 by Catrina Hutchins RN 06/02/22 1715 by Sae Abdi Incision 03/14/21; 1409; Left ; knee; Left total knee revision ; 06/02/22 (Youbetme cleanup utility RA#[id number]); 1715 (Youbetme cleanup utility RA#[id number]) 03/14/21 1409 by Nuha Garcia RN 06/02/22 1715 by Sae Abdi (RETIRED) Peripheral IV Line - Single Lumen 03/21/22; 0631; metacarpal vein (top of hand), left; [id number] catheter system; Anatomical Landmarks; 20 gauge; MW; no longer indicated, catheter/device intact; 03/21/22; 1344 03/21/22 0631 by Stephen Sanchez RN 03/21/22 1344 by Stephen Sanchez RN documented in this encounter Social History Tobacco Use Types Packs/Day Years [...] on file documented as of this encounter OR Notes * Anesthesia Postprocedure Evaluation - Liliana Miller CRNA - 03/22/2022 6:49 AM EDT Department of Anesthesiology Post-procedure Note Patient: Sissy Eugene Procedure Summary Date: 03/21/22 Room / Location: [facility] MAIN OR Anesthesia Start: 742 Anesthesia Stop: 947 Procedures: TOTAL KNEE ARTHROPLASTY (WRVU 20.72) (Right Knee) MODIFIER MEDACTA-TOTAL KNEE (Right Knee) Diagnosis: (Right Knee DJD) Surgeons: Rod Valdez MD Responsible Provider: Liliana Miller CRNA Anesthesia Type: spinal ASA Status: 2 All Anesthesia Providers: HERON Independent: Liliana Miller CRNA Vitals Value Taken Time BP 111/78 03/21/22 1231 Temp 36.2 ??C (97.2 ??F) 03/21/22 0955 Pulse 55 03/21/22 1120 Resp 14 03/21/22 1120 SpO2 97 % 03/21/22 1230 Pain Level 0 03/21/22 1352 Vitals shown include unvalidated device data. Patient Location: PACU/[facility] Level of Consciousness: Awake and Alert Pain Management: Satisfactory Analgesia PONV: None Cardiovascular Status: At Baseline and Hemodynamically Stable Respiratory Status: At Baseline and Room Air Postoperative Fluid Status: Intravascular EUvolemia Possible Anesthetic Complications: NONE apparent at time of evaluation Final Primary Anesthesia Type: Spinal (The anesthetic type performed was the same as planned.) Comments: Liliana Miller CRNA * Anesthesia Procedure Notes - Liliana Miller CRNA - 03/21/2022 8:53 AM EDT Associated Order(s): Anesthesia Block Anesthesia Block Date/Time: 03/21/2022 7:05 AM Performed by: Liliana Miller CRNA Authorized by: Liliana Miller CRNA Start Time: 03/21/2022 7:05 AM End Time: 03/21/2022 7:11 AM Patient Location: [facility] The patient was greeted; the risks and benefits of the procedure were reviewed. Indication: Post-op Pain Control Post-op pain management at the request of surgeon. Block Type: Adductor canal block Laterality: Right Position: Supine Prep: Chlorhexidine and mask, cap, sterile gloves, hand hygeine Block Technique: SonoPlex 21 10 cm Ultrasound Guided: YES and in-plane Ultrasound Image Saved Ultrasound guidance was used to identify the targeted neuronal structure. Ultrasound was also used to identify needle position and to identify tissue (bone, muscle, and blood vessels) to prevent inadvertent intraneural or intravascular needle placement and injection. The spread of local anesthetic was confirmed with live ultrasound imaging. Single-Shot: Single-shot Local Anesthetic Volume(s) Injected for Nerve Block: ROpivacaine (PF) 0.5% - Perineural 15 mL - 03/21/2022 7:11:00 AM Nerve Sensory/MotorTest: Events: no complications Staff: Resident/WASTEWATER ENGINEER:: Liliana Miller CRNA Notes: Block requested by surgeon for postoperative pain management. The risks, benefits, and ACB procedure were discussed with the patient and all questions were answered during the consent process. A procedural timeout which included the patient confirmed the correct patient, procedure, and laterality. Standard ASA monitors and 2L O2 via nasal cannula were applied. IV sedation was administered by RN and the patient reported feeling comfortable & relaxed. CHG prep applied & allowed to dry X 3minutes. Under US guidance, landmarks including the sartorius, adductor parul, vastus lateralis, femoral artery & vein were identified. An echogenic needle was introduced from lateral to medial under direct vision and advanced through the sartorius & into the adductor canal. Following negative aspiration and absence of paresthesias, 0.5% ropivacaine was injected and spread of local anesthetic was visualized. A total of 15 mL of 0.5% ropivacaine was injected in 1-5 mL aliquots with negative aspiration between each. VS stable throughout the procedure, see nursing documentation. * Anesthesia Procedure Notes - Liliana Miller CRNA - 03/21/2022 8:45 AM EDT Associated Order(s): Neuraxial (Operative Procedure/ APS) Procedure: Neuraxial Block Primary Anesthetic Type: Spinal The patient was greeted. The sedation plan, its benefits, risks and alternatives were discussed with the patient. The patient has consented to the procedure. The medical history and chart were reviewed. The timeout was performed. Start time: 03/21/2022 7:15 AM End time: 03/21/2022 7:40 AM Patient Location: Other - add comment below SDP Patient Prep Position: Sitting Prep: Hand Hygiene, Hat, Mask, Sterile Gloves, Chlorhexidine and Patient Draped Injection technique: single-shot Skin Anesthetic Lidocaine 1% 5 ml Procedure Technique Level of needle insertion: L5-S1 Needle approach: midline Needle Type: [facility] Gauge: 25 Needle length: 3.5 in Number of attempts: 4 Medications: Date/Time: 03/21/2022 7:15 AM BUpivacaine 0.75% with dextrose - Intrathecal 9 mg - 03/21/2022 7:40:00 AM fentaNYL - Intrathecal 25 mcg - 03/21/2022 7:40:00 AM Events/Notes Events: None Additional Notes: 1st attempt L3-L4 w/25 g Abel. 2nd attempt L4-L5 w/25 g Abel. 3rd attemptL4-L5 w/22 g Quincke. 4th attempt by Sanju at L5-S1 w/25 g Abel was successful. Patient tolerated the procedure well. + free flow of CSF before & after injection of bupivacaine. - heme - paresthesia. Patient turned to lay on side with operative side down immediately upon completion of SAB procedure. Resident/WASTEWATER ENGINEER: Liliana Miller CRNA Second Resident/WASTEWATER ENGINEER: Dora Bills CRNA SRNA: Fellow: Attending Physician: ~~~~~~~~~~~~~~~~~~~~~~~~~~~~~~~~~~~~~~~~~~~~~~~~~~~~~~~~~~~~ * Anesthesia Preprocedure Evaluation - Liliana iMller CRNA - 03/19/2022 11:54 AM EDT Pre-Anesthesia Evaluation for: Sissy Eugene a 56 y.o. female. Procedure(s): TOTAL KNEE REVISION ARTHROPLASTY, COMPLETE (WRVU 27.11) Patient Active Problem List Diagnosis ??? Plantar fasciitis, right ??? Leona sign present in right knee ??? Primary osteoarthritis of right knee ??? S/P revision of total knee, left Courtney 03/14/21 ??? Closed fracture of distal end of left radius with routine healing, DOI: 09/05/2019 ??? Obesity, Class II, BMI 35-39.9 Body mass index is 39.75 kg/m??. ? ? s/p left knee I&D, polyethylene exchange for acute PJI with Dr. Valdez 02/10/19 ??? Hammer toe of left foot Second toe Past Medical History: Diagnosis Date ??? Anemia [...] EACH performed by Stanley Koo MD at [facility] ??? PRO REVISE KNEE JOINT REPLACE, 1 PART Left 02/10/2019 @TOTAL KNEE REVISION ARTHROPLASTY, ONE COMPONENT (WRVU 21.12) performed by Rod Valdez MD [facility] MAIN OR ??? PRO REVISE KNEE JOINT REPLACE, 1 PART Left 03/14/2021 TOTAL KNEE REVISION ARTHROPLASTY, ONE COMPONENT (WRVU 21.12) performed by Rod Valdez MD at [facility] MAIN OR ??? PRO XFER SINGLE SUPERFICI LOW LEG TENDON Left 10/01/2015 TENDON TRANSFER, ANKLE, SUPERFICIAL performed by Stanley Koo MD at [facility] ??? TISSUE TRANSFER ACL cadaver tissue ??? TONSILLECTOMY AND ADENOIDECTOMY Social History Tobacco Use ??? Smoking status: Former Smoker Packs/day: 0.50 Years: 15.00 Pack years: 7.50 Types: Cigarettes Quit date: 07/18/2003 Years since quittin.6 ??? Smokeless tobacco: Never Used Substance Use Topics ??? Alcohol use: Yes Comment: one glass of wine 6 times a year Social History Substance and Sexual Activity Drug Use Never Allergies Allergen Reactions ??? Adhesive Itching and Rash She is able to use hypoallergenic tape ??? Adhesive Bandage Rash ??? Codeine Nausea Only Other reaction(s): Nausea Medications: MAR and/or home medications have been reviewed. Physical Exam: Preprocedure Vitals Current as of 03/13/21 1109 No BP, pulse, respiration, SpO2, or temperature recorded. Height: 177.8 cm (5' 10) (03/05/21) Weight: 102.5 kg (226 lb) (03/05/21) BMI: 32.42 IBW: 68.5 kg (151 lb 0.2 oz) Airway Assessment: Mallampati: II TM distance: >3 FB Neck ROM: full Cardiovascular Assessment: Rhythm: regular Rate: normal system normal Pulmonary Assessment: breath sounds clear to auscultation pulmonary exam normal Dental Assessment: - normal exam Misc Assessment: Patient is wearing No contact(s). IV access: Peripheral line Last Filed Perioperative Cognitive Screening None Anesthesia Plan: ASA 2 spinal, with a(n) intravenous induction Preliminary note based on chart review: Ana Rosa presents for right TKA Her history is significant for cigarette smoking (quit 2002), COVID 12/2021 (no significant symptoms, has since had a negative test), BMI = 35. Allergies to adhesives (rash) and codeine (nausea). EKG 06/2019: Marked sinus bradycardia, rate = 46. Platelets = 258 on labs 03/12/2022. Prior anesthetics: Left TKA revision ([facility], 03/2021): iGel 3 Left TKA ([facility], 02/2019): SAB at L5-S1 w/3.5 Abel w/ANITA at 8 cm on 2nd attempt Metatarsal osteotomy ([facility], 09/2015): iGel #4, ankle block Prior anesthesia preop notes delayed emergence in remote past, no issues recently. Of note, chart reveals history of motion sickness. 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 Denies CP/SOB/CARRANZA, recent illness/URI. Can achieve > 4 METs with ease. No history of hepatorenal or thyroid disease, seizures, CVA/TIA, DM, or ALDO. GERD: denies NPO: appropriately NPO > 8 hours solids, > 2 hours liquids We have discussed the plan + risks/benefits of anesthesia. Plan for ACB + SAB. Ana Rosa was informed of the risks, benefits and alternatives of anesthesia. These risks included, but were not limited to,PDPH, urinary retention, inability to place SAB or incomplete SAB requiring provision of GA to complete the procedure, post-operative nausea and/or vomiting, pain, sore throat, dental/lip trauma, transient and other rare but serious complications such as total spinal anesthesia, subarachnoid hematoma, temporary or permanent nerve damage following spinal, major organ damage, awareness, severe allergic reactions, position- related nerve injuries. All questions were sought and answered. Ana Rosa verbalizes understanding, wishes to proceed, and has signed consent. I discussed the risks of a nerve block with Ana Rosa. These include but are not limited to, nerve injury (as part of post operative nerve dysfunction, which may be multifactorial, related to surgery, tourniquet, positioning, and/or block), failure of the block to relieve pain, failure of the block to numb the desired anatomical region, local anesthetic toxicity (though rare, from minor to major), pneumothorax (for certain blocks), and even infection and bleeding/hematoma. Ana Rosa understands the risks of having an insensate extremity (including injuring the limb and in the case of lower extremity blocks, FALLING). I obtained full informed consent from the patient, and solicited further questions. Ana Rosa desires to proceed despite these risks and gives consent. Region - Other Informed Consent: Anesthetic plan and risks discussed with patient. Anesthesia Screening documented in this encounter Plan of Treatment Not on file documented as of this encounter Procedures Procedure Name Priority Date/Time Associated Diagnosis Comments ANE NEURAXIAL UPDATED Routine 03/21/2022 7:15 AM EDT ANESTHESIA BLOCK Routine 03/21/2022 7:05 AM EDT documented in this encounter Results * Neuraxial (Operative Procedure/ APS) (03/21/2022 7:15 AM EDT) Narrative Liliana Miller CRNA - 03/21/2022 7:15 AM EDT Liliana Miller CRNA ? 03/21/2022 ??8:52 AM Procedure: ?? Neuraxial Block Primary Anesthetic Type: Spinal The patient was greeted. The sedation plan, its benefits, risks and alternatives were discussed with the patient. ??The patient has consented to the procedure. ??The medical history and chart were reviewed. ??The timeout was performed. Start time: 03/21/2022 7:15 AM End time: 03/21/2022 7:40 AM Patient Location: Other - add comment below SDP Patient Prep Position: Sitting Prep: Hand Hygiene, Hat, Mask, Sterile Gloves, Chlorhexidine and Patient Draped Injection technique: single-shot Skin Anesthetic Lidocaine 1% ??5 ml Procedure Technique Level of needle insertion: L5-S1 Needle approach: midline Needle Type: [facility] Gauge: 25 Needle length: 3.5 in Number of attempts: 4 Medications: Date/Time: ??03/21/2022 7:15 AM BUpivacaine 0.75% with dextrose - Intrathecal 9 mg - 03/21/2022 7:40:00 AM fentaNYL - Intrathecal 25 mcg - 03/21/2022 7:40:00 AM Events/Notes Events: ??None Additional Notes: ??1st attempt L3-L4 w/25 g Abel. 2nd attempt L4-L5 w/25 g Abel. 3rd attempt L4-L5 w/22 g Quincke. 4th attempt by Sanju at L5-S1 w/25 g Abel was successful. Patient tolerated the procedure well. + free flow of CSF before & after injection of bupivacaine. ??- heme - paresthesia. Patient turned to lay on side with operative side down immediately upon completion of SAB procedure. Resident/WASTEWATER ENGINEER: ? Liliana Miller CRNA Second Resident/WASTEWATER ENGINEER: ??Dora Bills CRNA SRNA: ? Fellow: ? Attending Physician: ? ~~~~~~~~~~~~~~~~~~~~~~~~~~~~~~~~~~~~~~~~~~~~~~~~~~~~~~~~~~~~ Liliana Miller CRNA DRIVER TRAINER [facility] * Anesthesia Block (03/21/2022 7:05 AM EDT) Narrative Liliana Miller CRNA - 03/21/2022 7:05 AM EDT Liliana Miller CRNA ? 03/21/2022 ??8:56 AM Anesthesia Block Date/Time: 03/21/2022 7:05 AM Performed by: Liliana Miller CRNA Authorized by: Liliana Miller CRNA Start Time: ??03/21/2022 7:05 AM End Time: ??03/21/2022 7:11 AM Patient Location: ??SDP The patient was greeted; the risks and benefits of the procedure were reviewed. ?? Indication: ??Post-op Pain Control Post-op pain management at the request of surgeon. ?? Block Type: ??Adductor canal block Laterality: ??Right Position: ??Supine Prep: ??Chlorhexidine and mask, cap, sterile gloves, hand hygeine Block Technique: ?? SonoPlex ?? 21 ?? 10 cm ??Ultrasound Guided: ??YES and in-plane ??Ultrasound Image Saved ?Ultrasound guidance was used to identify the targeted neuronal structure. Ultrasound was also used to identify needle position and to identify tissue (bone, muscle, and blood vessels) to prevent inadvertent intraneural or intravascular needle placement and injection. The spread of local anesthetic was confirmed with live ultrasound imaging. ?Single-Shot: ??Single-shot Local Anesthetic Volume(s) Injected for Nerve Block: ?? ROpivacaine (PF) ??0.5% - Perineural 15 mL - 03/21/2022 7:11:00 AM Nerve Sensory/MotorTest: ??Events: no complications ?? Staff: ??Resident/WASTEWATER ENGINEER:: ??Liliana Miller CRNA Notes: ?? Block requested by surgeon for postoperative pain management. The risks, benefits, and ACB procedure were discussed with the patient and all questions were answered during the consent process. A procedural timeout which included the patient confirmed the correct patient, procedure, and laterality. Standard ASA monitors and 2L O2 via nasal cannula were applied. ??IV sedation was administered by RN and the patient reported feeling comfortable & relaxed. CHG prep applied & allowed to dry X 3 minutes. Under US guidance, landmarks including the sartorius, adductor parul, vastus lateralis, femoral artery & vein were identified. An echogenic needle was introduced from lateral to medial under direct vision and advanced through the sartorius & into the adductor canal. Following negative aspiration and absence of paresthesias, 0.5% ropivacaine was injected and spread of local anesthetic was visualized. A total of 15 mL of 0.5% ropivacaine was injected in 1-5 mL aliquots with negative aspiration between each. VS stable throughout the procedure, see nursing documentation. ?? Liliana Miller CRNA DRIVER TRAINER [facility] documented in this encounter Visit Diagnoses Not on filedocumented in this encounter Administered Medications Inactive Administered Medications - up to 3 most recent administrations Medication Order MAR Action Action Date Dose Rate Site BUpivacaine (pf) (Sensorcaine) (7.5 mg/mL) 0.75% in dextrose 8.25% INTRATHECAL injection Intrathecal, Starting on Thu03/21/22 at 0740, Until Thu03/21/22 at 0740, Anesthesia Intra-op, Routine Given 03/21/2022 7:40 AM EDT 9 mg ceFAZolin (Ancef) 2 g vial attach to sodium chloride 0.9% 100 mL Mini-Bag Plus 2 g, Intravenous, EVERY 3 HOURS, 1 dose, First dose on Thu03/21/22 at 0630, Administer over 30 Minutes, Re-dose after 3 hours., Intra-Operative (Intra-Procedure), Indication for (Active or Suspected): Prophylaxis New Bag 03/21/2022 7:50 AM EDT 2 g dexAMETHasone (Decadron) injection Intravenous, PRN, Starting on Thu03/21/22 at 0755, Until Thu03/21/22 at 0951, Anesthesia Intra-op, Routine Given 03/21/2022 7:55 AM EDT 8 mg fentaNYL (pf) (50 mcg/mL) multi-dose injection Intrathecal, Starting on Thu03/21/22 at 0740, Until Thu03/21/22 at 0740, Anesthesia Intra-op, Routine Given 03/21/2022 7:40 AM EDT 25 mcg fentaNYL (pf) (50 mcg/mL) multi-dose injection Intravenous, PRN, Starting on Thu03/21/22 at 0917, Until Thu03/21/22 at 0951, Anesthesia Intra-op, Routine Given 03/21/2022 9:37 AM EDT 25 mcg Given 03/21/2022 9:34 AM EDT 25 mcg Given 03/21/2022 9:17 AM EDT 25 mcg ketamine (Ketalar) (10 mg/mL) IV bolus injection (Anesthesia) Intravenous, PRN, Starting on Thu03/21/22 at 0803, Until Thu03/21/22 at 0951, Anesthesia Intra-op Given 03/21/2022 9:10 AM EDT 5 mg Given 03/21/2022 8:49 AM EDT 10 mg Given 03/21/2022 8:03 AM EDT 20 mg lactated ringers infusion 1,000 mL, Intravenous, CONTINUOUS, Starting on Thu03/21/22 at 0630, Until Thu03/21/22 at 1312, Day of Surgery (Day of Procedure) Restarted 03/21/2022 7:50 AM EDT New Bag 03/21/2022 6:31 AM EDT 1,000 mLs 30 mL/hr magnesium sulfate (4 mEq/mL) (50 %) injection Intravenous, PRN, Starting on Thu03/21/22 at 0815, Until Thu03/21/22 at 0951, Anesthesia Intra-op, Routine Given 03/21/2022 8:15 AM EDT 2 g ondansetron (pf) (Zofran) (2 mg/mL) injection Intravenous, PRN, Starting on Thu03/21/22 at 0755, Until Thu03/21/22 at 0951, Anesthesia Intra-op, Routine Given 03/21/2022 7:55 AM EDT 4 mg PHENYLephrine (Parish-Synephrine) (10 mg/mL) injection Intravenous, PRN, Starting on Thu03/21/22 at 0820, Until Thu03/21/22 at 0951, Anesthesia Intra-op, Routine Given 03/21/2022 8:53 AM EDT 40 mcg Given 03/21/2022 8:27 AM EDT 80 mcg Given 03/21/2022 8:23 AM EDT 80 mcg PHENYLephrine (Parish-Synephrine) (80 mcg/mL) in sodium chloride 0.9% 250 mL infusion (for Anesthesia) Intravenous, CONTINUOUS PRN, Starting on Thu03/21/22 at 0827, Until Thu03/21/22 at 0951, Anesthesia Intra-op Rate/Dose Change 03/21/2022 9:22 AM EDT 10 mcg/min 7.5 mL/hr New Bag 03/21/2022 8:27 AM EDT 20 mcg/min 15 mL/hr propofoL (Diprivan) (10 mg/mL) infusion Intravenous, CONTINUOUS PRN, Starting on Thu03/21/22 at 0758, Until Thu03/21/22 at 0951, Anesthesia Intra-op, Routine Rate/Dose Change 03/21/2022 8:05 AM EDT 100 mcg/kg/min 69 mL/hr New Bag 03/21/2022 7:58 AM EDT 50 mcg/kg/min 34.5 mL/hr propofoL (Diprivan) 10 mg/mL bolus injection (Anesthesia) Intravenous, PRN, Starting on Thu03/21/22 at 0804, Until Thu03/21/22 at 0951, Anesthesia Intra-op Given 03/21/2022 8:04 AM EDT 30 mg ROpivacaine (PF) (Naropin) 0.5% (5 mg/mL) injection Perineural, Starting on Thu03/21/22 at 0711, Until Thu03/21/22 at 0711, Anesthesia Intra-op, Routine Given 03/21/2022 7:11 AM EDT 15 mLs tranexamic acid (Cyklokapron) 1,667 mg in sodium chloride 0.9% 116.67 mL infusion 1,667 mg (rounded from 1,666.5 mg = 15 mg/kg/dose ? 111.1 kg), Intravenous, ONCE, 1 dose, On Thu03/21/22 at 0630, Administer over 30 Minutes, Day of Surgery (Day of Procedure) New Bag 03/21/2022 8:00 AM EDT 1,667 mg documented in this encounter Care Teams Analytical Manager Relationship Specialty Start Date End Date Sari Hay MD [facility] [address] [place] [address] PCP - General 05/21/11 documented as of this encounter
--- OUTSIDE RECORDS SUMMARY | 2024-04-26 15:47 | XMS_ITS | Encounter Summary ---
Author Organization [facility] Address [facility] [place] [address] Care Team Providers Care Resourcing Consultant Name Role Phone Sari Hay MD Primary Care Provider [phone] Encounter Details Date Type Department Care Team (Late st Contact Info) Description 04/23/2022 12:14 PM EDT - 04/23/2022 11:59 PM EDT Hospital Encounter XRay at [address] [place] [address] Rod Valdez MD [facility] [place] [address] Primary osteoarthritis of right knee; Pain of right lower extremity Discharge Disposition: Home Social History Tobacco Use Types Packs/Day Years [...] on file documented as of this encounter Medications at Time of Discharge [...] needed for Pain. oxyCODONE (Roxicodone) 5 mg TabletIndications:Pres ence of right artificial knee joint Take 1 tablet by mouth every 6 hours as needed for Pain. 20 tablet 04/04/2022 05/02/2022 naproxen (NAPROSYN) 500 mg Tablet Take 1 tablet by mouth 2 times daily (with meals). 60 tablet 03/21/2022 10/07/2023 gabapentin (Neurontin) 300 mg Capsule Take 1 capsule by mouth nightly. 30 capsule 03/21/2022 10/07/2023 amoxicillin (Amoxil) 500 mg Capsule TAKE FOUR CAPSULES BY MOUTH 1 HOUR PRIOR TO DENTAL PROCEDURE 11/29/2020 09/30/2022 documented as of this encounter Plan of Treatment Not on file documented as of this encounter Procedures Procedure Name Priority Date/Time Associated Diagnosis Comments XR KNEE STANDING ALIGNMENT AP LAT SKYLINE RIGHT Routine 04/23/2022 12:50 PM EDT Primary osteoarthritis of right knee Pain of right lower extremity documented in this encounter Results * XR Knee Standing Alignment AP Lat [place]ound Right (04/23/2022 12:50 PM EDT) Anatomical Region Laterality Modality Knee Right Digital Radiogra phy Impressions 04/23/2022 1:16 PM EDT Uncomplicated right TKA. Thank you for letting us participate in the care of this patient. ??If you are a health care provider and have any questions regarding this report, please contact the number below. ??For patients who have questions please contact the health direct care counselor that requested your imaging first. ? Electronically signed by: Charlotte Johnson MD, [facility] ([phone]), at 04/23/2022 1:16 PM Narrative 04/23/2022 1:16 [...] patients who have questions please contactthe health direct care counselor that requested your imaging first. Electronically signed by: Charlotte Johnson MD, [facility]([phone]), at 04/23/2022 1:16 PM Rod Valdez MD IMG DX ORDERABLES documented in this encounter Visit Diagnoses Diagnosis Primary osteoarthritis of right knee Primary localized osteoarthrosis, lower leg Pain of right lower extremity documented in this encounter Care Teams Resourcing Consultant Relationship Specialty Start Date End Date Sari Hay MD [address] [place] [address] PCP - General 05/21/11 documented as of this encounter
--- OUTSIDE RECORDS SUMMARY | 2024-04-26 15:47 | XMS_ITS | Encounter Summary ---
Author Organization [facility] Address [facility] [place] [address] Care Team Providers Care Visual Manager Name Role Phone Sari Hay MD Primary Care Provider [phone] Encounter Details Date Type Department Care Team (Late st Contact Info) Description 03/24/2022 Telephone Orthopaedics at [address] [phone] Rod Valdez MD [facility] [place] [address] Social History Tobacco Use Types Packs/Day Years [...] encounter Miscellaneous Notes * Telephone Encounter - Yas Zimmerman RN - 03/25/2022 8:55 AM EDT Sent message to [facility] to see if they could help with this. Spoke to PACU at [facility], they do not replace damaged equipment. * Telephone Encounter - Kim Cr - 03/24/2022 12:00 PM EDT Who is calling?Ana Rosa Eugene Best call back number: [phone] Best time to call back between 8:00 am & 5:00 pm: JASON Can we leave a message? yes What medical equipment/orthotic are you requesting? CRYO CUFF, patient states the one she was sent home with is broken/punctured and wants to get this replaced prior to her visit with Dr. Valdez on April 23. Who is your DME supplier (if applicable)? N/A Fax number for DME supplier (if applicable): N/A Who is your provider here in orthopaedics? Dr. Valdez Your message will be forwarded to the clinical care team for review. (Please forward message to the [facility] pool.) * Telephone Encounter - Mariama Gusman - 03/24/2022 9:09 AM EDT Who is calling? Ana Rosa Bernard call back number: [phone] Best time to call back between 8:00 am & 5:00 pm: JASON Can we leave a message? yes When was your procedure? Thursday03-21-22 Who was your surgeon? Courtney What procedure did you have done? RIGHT LOREN What is the question you would like to ask the clinical care team? [facility] orthopaedic cooler cyro cuff is punctured and needs a new one? She's borrowing a friends but does need it to be addressed. documented in this encounter Plan of Treatment Not on file documented as of this encounter Visit Diagnoses Not on filedocumented in this encounter Care Teams Visual Manager Relationship Specialty Start Date End Date Sari Hay MD [address] [place] [address] PCP - General 05/21/11 documented as of this encounter
--- OUTSIDE RECORDS SUMMARY | 2024-04-26 15:47 | XMS_ITS | Encounter Summary ---
Author Organization [facility] Address [facility] [place] [address] Care Team Providers Care Seo Manager Name Role Phone Sari Hay MD Primary Care Provider [phone] Reason for Visit * Reason Onset Date Comments Pre Procedure Call 02/03/2022 Encounter Details Date Type Department Care Team (Late st Contact Info) Description 02/03/2022 Tele[place] [phone] Rod Valdez MD [facility] [place] [address] Pre Procedure Call Social History Tobacco Use Types Packs/Day Years [...] encounter Miscellaneous Notes * Telephone Encounter - Kim Cr - 02/26/2022 1:12 PM EDT Patient Scheduled on March 21, 2022 for Right LOREN with Dr. Valdez at [facility]. Labs to be done: 03/12/2022 Where: [facility] Pre-op appt scheduled: 03/12/2022 Where: [facility] Patient contacted and informed of the information above. * Telephone Encounter - Kim Cr - 02/05/2022 2:27 PM EDT Date Received: 02/05/2022 Completed by: Proxy over phone - S Surgeon: Dr. Valdez Surgery: Right TKA Emailed for Preop Clearance: 02/05/2022 Status: Pending Approval * Telephone Encounter - Kallie Obando - 02/05/2022 1:19 PM EDT Left a message for patient that Dr. Valdez does think that she is a [facility] candidate. Left her the direct number to call the [facility] schedulers to do a health assessment for Anesthesia and if she is approved then she can ask them about his mid-March date there. * Telephone Encounter - Kallie Obando - 02/03/2022 11:10 AM EDT I called and left a message for patient to call [phone] directly and schedule surgery with Dr. Valdez. documented in this encounter Plan of Treatment Not on file documented as of this encounter Visit Diagnoses Not on filedocumented in this encounter Care Teams Seo Manager Relationship Specialty Start Date End Date Sari Hay MD [address] [place] [address] PCP - General 05/21/11 documented as of this encounter
--- OUTSIDE RECORDS SUMMARY | 2024-04-26 15:47 | XMS_ITS | Clinical Summary ---
Author Organization [facility] Address [facility] [place] [address] Care Team Providers Care Lead Business Analyst Name Role Phone Sari Hay MD Primary Care Provider [phone] Allergies Active Allergy Reactions Criticality Noted Date Comments Adhesive Itching,Rash Medium 03/09/2019 She is able to use hypoallergenic tape Adhesive Bandage Rash Medium 02/10/2019 Codeine Nausea Only Medium 07/18/2015 Other reaction(s): Nausea Medications Medication Sig Dispensed Refills Start Date End Date Status ibuprofen (Advil) 200 mg Tablet Take 400 mg by mouth nightly as needed for Pain. Active acetaminophen (Tylenol) 325 mg Tablet Take 650 mg by mouth every 4 hours as needed for Pain. Active aspirin EC 81 mg Tablet, Delayed Release (E.C.) Take 1 tablet by mouth 2 times daily. 60 tablet 03/21/2022 Active Additional Information Patient not taking.Reported on 04/23/2022 amoxicillin (Amoxil) 500 mg tabletIndications:S /P revision of total knee, left,Presence of right artificial knee joint Take 4 Tablets 1 hour prior to dental procedure 4 tablet 3 10/07/2023 Active Active Problems Problem Noted Date Diagnosed Date Plantar fasciitis, right 01/20/2022 Leona sign present in right knee 01/20/2022 Primary osteoarthritis of right knee 01/20/2022 S/P revision of total knee, left Jermyn 03/14/21 Closed fracture of distal en d of left radius with routine healing, DOI: 09/05/2019 10/29/2019 Obesity, Class II, BMI 35-39.9 02/15/2019 Overview (02/15/2019): Body mass index is 39.75 kg/m??. s/p left knee I&D, polyethyl robbie exchange for acute PJI with Dr. Valdez 02/10/19 02/10/2019 Hammer toe of left foot 07/18/2015 Overview (07/18/2015): Second toe Resolved Problems Problem Noted Date Diagnosed Date Resolved Date Postoperative anemia due to acute blood loss 9 10/29/2019 S/P orthopedic surgery, follow-up exam 10/11/2015 10/29/2019 Family History Medical History Relation Comments Diabetes Father Hypertension Father Relation Status Comments Father Social History Tobacco Use Types Packs/Day Years [...] on file Sexual Orientation Not on file Last Filed Vital Signs Vital Sign Reading Time Taken Comments Blood Pressure 128/83 04/23/2022 1:23 PM EDT Pulse 77 04/23/2022 1:23 PM EDT Temperature 36.9 ??C (98.4 ??F) 04/23/2022 1:23 PM ED T Respiratory Rate 14 03/21/2022 11:20 AM EDT Oxygen Saturation 97% 03/21/2022 12:30 PM EDT Inhaled Oxygen Concentration - - Weight 114.8 kg (253 lb) 10/07/2023 10:52 AM EST Height 176.5 cm (5' 9.5) 10/07/2023 10:52 AM ES T Body Mass Index 36.83 10/07/2023 10:52 AM EST Plan of Treatment Health Maintenance Due Date Last Done Comments CT Colonography 1963 Colonoscopy 1963 Colorectal Cancer Screening 1963 FIT DNA 1963 FIT 1963 Sigmoidoscopy (10 year) with FIT yearly 1963 Sigmoidoscopy 1963 HIV screen 1981 Hepatitis C Screening 1981 Lipid Screening 1981 Tdap adult 1982 Tetanus vaccine 1982 HPV test 1993 PAP Smear 1993 Breast Cancer Share Decision Needed 2003 Breast Cancer screening 05/09/2013 05/09/2011, 11/16 Zoster vaccine (1 of 2) 2013 Advance Directive 2018 Covid-19 Vaccine (1 - 2022-2 4 season) 2023 Influenza (Flu) vaccine (1 o f 1 - Influenza standard series) 06/05/2024 Diabetes Screening (HgbA1C o r Glucose) 03/12/2025 03/12/2022, 01/03/2022, 03/15/2021, Additional history exists Medical Devices Implanted Type Area Radiology Tech Device Identifier Shelf Expiration Date Model / Serial / Lot Cement Bone High Viscosity 40gm Gentamicin Single Dose Pmma ([id number]) - [id number] Implanted:Qty: 1 on 03/14/2021 by Rod Valdez MD at [facility] IMPLANTS Left: Knee [employer] [id number] 06/04/2022 5450-35-500 / / [id number] Cement Bone High Viscosity 40gm Gentamicin Single Dose Pmma ([id number]) - [id number] Implanted:Qty: 1 on 03/14/2021 by Rod Valdez MD at [facility] IMPLANTS Left: Knee [employer] [id number] 10/04/2021 5450-35-500 / / [id number] Insert Tibial 12mm Sz 4 Rt Fix Poly Gmk E Cross ([id number]) (Autoreq) - [id number] Implanted:Qty: 1 on 03/21/2022 by Rod Valdez MD at [facility] IMPLANTS Right: Knee [employer] [id number] 10/18/2025 02.12.[id number] / / Comp Femoral Knee Sz 4+ Right Agusto Ps Cocr (0829262) (Autoreq) - [id number] Implanted:Qty: 1 on 03/21/2022 by Rod Valdez MD at [facility] IMPLANTS Right: Knee [employer] [place] [id number] 09/30/2026 02.12.0024R / / [id number] Cement Bone Medium Viscosity 40gm Single Dose Pmma Smartset ([id number]) (Autoreq) - [id number] Implanted:Qty: 2 on 03/21/2022 by Rod Valdez MD at [facility] IMPLANTS Right: Knee [employer] 09/03/2023 [id number] / / [id number] Comp Patellar Knee Size 2 Resurfacing Uhmwpe Gmk E Cross ([id number]) (Autoreq) - [id number] Implanted:Qty: 1 on 03/21/2022 by Rod Valdez MD at [facility] IMPLANTS Right: Knee [employer] [place] [employer] [place] [id number] 09/30/2025 02.12.[id number] / / [id number] Baseplate Tibial Sz 4 Right Agusto Cocr Gmk ([id number]) (Autoreq) - [id number] Implanted:Qty: 1 on 03/21/2022 by Rod Valdez MD at [facility] IMPLANTS Right: Knee [employer] [id number] 09/05/2026 02.07.1204R / / [id number] Persona Vivacit-E Highly Crosslinked Polyethylene Posterior Stabilized Left Implanted:Qty: 1 on 02/10/2019 by Rod Valdez MD at [facility] Left: Knee ISA [employer] - [id number] 08/04/2023 [id number] Isa Persona Stem Extension Implanted:Qty: 1 on 03/14/2021 by Rod Valdez MD at [facility] Left: Knee [id number] 05/08/2030 [id number] / / [id number] Isa Persona Left Ps Poly 12mm Implanted:Qty: 1 on 03/14/2021 by Rod Valdez MD at [facility] Left: Knee [employer] - [id number] 01/02/2022 [id number] / / [id number] Isa Persona Fixed Tibia Left Size F Implanted:Qty: 1 on 03/14/2021 by Rod Valdez MD at [facility] Left: Knee [employer] - [id number] 01/02/2031 [id number] / / [id number] Procedures Procedure Name Priority Date/Time Associated Diagnosis Comments BASIC METABOLIC PANEL (NON-FASTING) Routine 03/12/2022 10:23 AM EDT Primary osteoarthritis of right knee Pain of right lower extremity MAMMO GENERIC BILATERAL SCREENING Routine 05/09/2011 from Last 3 Months or Most Recently Relevant to Health Maintenance Results * Basic Metabolic Panel (non-fasting) (03/12/2022 10:23 AM EDT) Glucose Lvl 95 65 - 199 mg/dL [facility] Comment:Diabetes: >=200 mg/d L plus symptoms BUN 18 8 - 18 mg/dL [facility] Creatinine 0.86 0.70 - 1.20 mg/dL [facility] Sodium 142 135 - 145 mmol/L [facility] Potassium 4.4 3.5 - 5.0 mmol/L [facility] Comment: Please note: ??Patients with WBC >100,000 may have falsely elevated Potassium levels. ??For accurate Potassium quantification in these patients send serum separator tube (gold top) for subsequent determinations. ??Contact the Clinical Chemistry Laboratory if there are any questions. Chloride 106 98 - 107 mmol/L [facility] CO2 27 22 - 31 mmol/L [facility] Anion Gap 9 5 - 15 mmol/L [facility] Calcium 9.9 8.5 - 10.5 mg/dL [facility] Estimated GFR 74 >=60 mL/min/1. 73 m?? [facility] Comment: This patient? s estimated [...] Resulting Agency Comment Spec In Lab Rod Valdez MD CHEMISTRY ORDERABLES [facility] [place] [address] * *Mammo generic bilateral screening (05/09/2011) Anatomical Region Laterality Modality Breast Bilateral Mammography Historical Provider MD [facility] MAMMO ORDERAB LES from Last 3 Months or Most Recently Relevant to Health Maintenance Advance Directives Documents on File Type Date Recorded Patient Auto Travel Counselor Expl anation Personal Auto Travel Counselor 03/06/2021 2:44 PM * Attempt Cardiopulmonary Resuscitation - Inpatient (Latest Code Status on File) Date Activated Date Inactivated Comments 03/14/2021 4:41 PM 03/15/2021 4:05 PM Question Answer Comments Code Status decision made by: Patient * Full Code Date Activated Date Inactivated Comments 02/10/2019 2:21 PM 02/15/2019 4:13 PM Question Answer Comments Does patient have capacity to make decision: Yes * Full Code Date Activated Date Inactivated Comments 02/10/2019 7:48 AM 02/10/2019 2:21 PM Question Answer Comments Does patient have capacity to make decision: Yes Care Teams Lead Business Analyst Relationship Specialty Start Date End Date Sari Hay MD [facility] [address] [place] [address] [facility] - General 05/21/11
--- OUTSIDE RECORDS SUMMARY | 2024-04-26 15:47 | XMS_ITS | Encounter Summary ---
Author Organization [facility] Address [facility] [place] [address] Care Team Providers Care Steaming Cabinet Tender Name Role Phone Sari Hay MD Primary Care Provider [phone] Reason for Visit * Reason Onset Date Comments Other 03/21/2022 Encounter Details Date Type Department Care Team (Late st Contact Info) Description 03/21/2022 Telephone [place] [address] Rod Valdez MD [facility] [place] [address] Other Social History Tobacco Use Types Packs/Day Years [...] encounter Miscellaneous Notes * Telephone Encounter - Marina Lezama RN - 03/24/2022 8:38 AM EDT Contacted the patient at this time on order to discuss possible replacement of her cryo-cuff. She was informed to contact [facility] at [phone] in order to discuss this as they would be the department to assist. She will plan to do this and has no further questions or concerns. * Telephone Encounter - Kierra Valadez - 03/21/2022 4:29 PM EDT Name of person calling: Sissy Have you had Surgery?yes If so when?03/21/22 Who was the Surgeon?Dr. Valdez What is the question: [facility] glacier thermos is broken, cuff that goes around knee has puncture in it so its spitting water. Currently has cryo cuff from neighbor and looking to see if she can get a replacement. Please advise. Best number to reach the caller: [phone] documented in this encounter Plan of Treatment Not on file documented as of this encounter Visit Diagnoses Not on filedocumented in this encounter Care Teams Steaming Cabinet Tender Relationship Specialty Start Date End Date Sari Hay MD [address] [place] [address] PCP - General 05/21/11 documented as of this encounter
--- OUTSIDE RECORDS SUMMARY | 2024-04-26 15:47 | XMS_ITS | Encounter Summary ---
[facility] Address [facility] [place] [address] Care Team Providers Care Laundry Operator Finishing Name Role Phone Sari Hay MD Primary Care Provider [phone] Reason for Referral * Diagnostic Test (Routine) - Closed Specialty Diagnoses / Procedures Referred By Contac t Referred To Contact Radiology Diagnoses Primary osteoarthritis of right knee Positive Leona test of right knee, initial encounter Procedures MRI Knee wo Contrast Right (Generic) Gege Harrell PA [facility] [place] [address] [place] [address] Referral ID Status Reason Start Date Expiration Date V isits Requested Visits Authorized [id number] Closed Specialty Service Requested 01/22/2022 03/22/2022 1 1 Reason for Visit * Diagnostic Test (Routine) - Closed Specialty Diagnoses / Procedures Referred By Contac t Referred To Contact Radiology Diagnoses Primary osteoarthritis of right knee Positive Leona test of right knee, initial encounter Procedures MRI Knee wo Contrast Right (Generic) Gege Harrell PA [facility] [place] [address] [place] [address] Referral ID Status Reason Start Date Expiration Date V isits Requested Visits Authorized [id number] Closed Specialty Service Requested 01/22/2022 03/22/2022 1 1 Encounter Details Date Type Department Care Team (Latest Contact Info) Description 01/24/2022 9:47 AM EDT - 01/24/2022 11:59 PM EDT [place] [address] Mitchell Early MD [facility] [place] [address] Primary osteoarthritis of right knee; Positive Leona test of right knee, initial encounter Discharge Disposition: Home Social History Tobacco Use [...] Sig Dispensed Refills Start Date End Date acetaminophen (Tylenol) 325 mg Tablet Take 650 mg by mouth every 4 hours as needed for Pain. ibuprofen (Advil) 200 mg Tablet Take 400 mg by mouth nightly as needed for Pain. amoxicillin (Amoxil) 500 mg Capsule TAKE FOUR CAPSULES BY MOUTH 1 HOUR PRIOR TO DENTAL PROCEDURE 11/29/2020 09/30/2022 documented as of this encounter Plan of Treatment Not on file documented as of this encounter Procedures Procedure Name Priority Date/Time Associated Diagnosis Comments MRI KNEE RIGHT WO CONTRAST Routine 01/24/2022 10:30 AM EDT Primary osteoarthritis of right knee Positive Leona test of right knee, initial encounter documented in this encounter Results * MRI Knee wo Contrast Right (Generic) (01/24/2022 10:30 AM EDT) Anatomical Region Laterality Modality Knee Right Magnetic Resonan ce Impressions 01/24/2022 11:55 AM EDT 1. ??Subchondral fracture in the periphery of the medial femoral condyle. 2. ??Advanced osteoarthropathy with multifocal full-thickness cartilage loss in the patellofemoral, medial, and lateral compartments. 3. ??Associated large radial tear versus complete maceration of the posterior horn of the medial meniscus. 4. ??Large Apodaca's cyst with synovitis. Thank you for letting us participate in the care of this patient. ??If you are a health care provider and have any questions regarding this report, please contact the number below. ??For patients who have questions please contact the health career development facilitator that requested your imaging first. ? Narrative 01/24/2022 11:55 AM EDT EXAMINATION: MRI KNEE WO CONTRAST RIGHT (GENERIC) CLINICAL HISTORY: right knee pain and effusion w/ equovical Leona, assess for meniscus tear, assess degree of underlying degenerative change ?? (as entered by ordering provider in the order requisition) COMPARISON: Right knee radiograph for. TECHNIQUE: Routine noncontrast MRI of the Right knee was performed. ??Sequences include sagittal PD with and without fat saturation, coronal PD with and without fat saturation, axial T2 with fat saturation, and axial T1. FINDINGS: Menisci: No tear of the lateral meniscus. Large radial tear versus complete maceration of the posterior horn of the medial meniscus. Extrusion of the body of the medial meniscus into the medial gutter. Ligaments and tendons: The anterior and posterior cruciate ligaments are intact. No bowing of the intact superficial medial collateral ligament due to local mass effect from the extruded medial meniscus. ??The lateral collateral ligament complex is intact. Extensor mechanism: The quadriceps and patellar tendons are intact. ??Signal in Zakiya's fat pad is normal.. Bones, cartilage and joint: There is a small knee joint effusion.. There is a small subchondral fracture in the central weightbearing surface of the periphery of the medial femoral condyle (series 9, image 24; series 6, image 26; series 7, image 26), with associated bone marrow edema. Tricompartmental osteophyte formation. Broad areas of full-thickness and near full-thickness cartilage loss of the entire patella. Focal subchondral edema versus early subchondral cystic change. Near full thickness cartilage loss of the trochlear groove. Broad area of full-thickness cartilage loss of the central weightbearing surface of the medial femoral condyle. Diffuse near full-thickness cartilage loss of the periphery of the medial tibial plateau. Full-thickness cartilage defect of the lateral tibial plateau measuring 12 x 8 mm (series 7, image 11 series 9, image 21). Extra-articular: Large Apodaca's cyst containing debris and synovial proliferation. Mild fatty infiltration of all visualized muscles. Normal signal and caliber of the tibial and common peroneal nerves. No fluid distention of the pes anserine bursa Procedure Note Lela Henley MD - 01/24/2022 EXAMINATION: MRI KNEE WO CONTRAST RIGHT (GENERIC) CLINICAL HISTORY: right knee pain and effusion w/ equovical Leona,assess for meniscus tear, assess degree of underlying degenerative change (as entered by ordering provider in the order requisition) COMPARISON: Right knee radiograph . TECHNIQUE: Routine noncontrast MRI of the Right knee was performed.Sequences include sagittal PD with and without fat saturation, coronal PD with andwithout fat saturation, axial T2 with fat saturation, and axial T1. FINDINGS: Menisci: No tear of the lateral meniscus. Large radial tear versuscomplete maceration of the posterior horn of the medial meniscus. Extrusion of thebody of the medial meniscus into the medial gutter. Ligaments and tendons: The anterior and posterior cruciate ligaments areintact. No bowing of the intact superficial medial collateral ligament due tolocal mass effect from the extruded medial meniscus. The lateral collateralligament complex is intact. Extensor mechanism: The quadriceps and patellar tendons are intact.Signal in Zakiay's fat pad is normal.. Bones, cartilage and joint: There is a small knee joint effusion.. Thereis a small subchondral fracture in the central weightbearing surface of theperiphery of the medial femoral condyle (series 9, image 24; series 6, image 26;series 7, image 26), with associated bone marrow edema. Tricompartmentalosteophyte formation. Broad areas of full-thickness and near full-thickness cartilage loss ofthe entire patella. Focal subchondral edema versus early subchondral cysticchange. Near full thickness cartilage loss of the trochlear groove. Broad area of full-thickness cartilage loss of the central weightbearingsurface of the medial femoral condyle. Diffuse near full-thickness cartilage lossof the periphery of the medial tibial plateau. Full-thickness cartilage defect of the lateral tibial plateau measuring 12x 8 mm (series 7, image 11 series 9, image 21). Extra-articular: Large Apodaca's cyst containing debris and synovial proliferation. Mild fatty infiltration of all visualized muscles. Normal signal and caliber of the tibial and common peroneal nerves. No fluid distention of the pes anserine bursa IMPRESSION 1. Subchondral fracture in the periphery of the medial femoral condyle. 2. Advanced osteoarthropathy with multifocal full-thickness cartilageloss in the patellofemoral, medial, and lateral compartments. 3. Associated large radial tear versus complete maceration of theposterior horn of the medial meniscus. 4. Large Apodaca's cyst with synovitis. Thank you for letting us participate in the care of this patient. If youare a health care provider and have any questions regarding this report,please contact the number below. For patients who have questions please contactthe health career development facilitator that requested your imaging first. Mitchell Early MD IMG MRI ORDERABLES documented in this encounter Visit Diagnoses Diagnosis Primary osteoarthritis of right knee Primary localized osteoarthrosis, lower leg Positive Leona test of right knee, initial encounter documented in this encounter Care Teams Laundry Operator Finishing Relationship Specialty Start Date End Date Sari Hay MD [address] [place] [address] PCP - General 05/21/11 documented as of this encounter
--- OUTSIDE RECORDS SUMMARY | 2024-04-26 15:47 | XMS_ITS | Encounter Summary ---
Author Organization [facility] Address [facility] [place] [address] Care Team Providers Care Bed Rubber Name Role Phone Sari Hay MD Primary Care Provider [phone] Encounter Details Date Type Department Care Team (Late st Contact Info) Description 04/17/2022 Telephone Orthopaedics at [address] [phone] Rod Valdez MD [facility] [place] [address] Social History Tobacco Use Types Packs/Day Years [...] on file documented as of this encounter Plan of Treatment Not on file documented as of this encounter Visit Diagnoses Not on filedocumented in this encounter Care Teams Bed Rubber Relationship Specialty Start Date End Date Sari Hay MD [facility] [address] [place] [address] PCP - General 05/21/11 documented as of this encounter
--- OUTSIDE RECORDS SUMMARY | 2024-04-26 15:47 | XMS_ITS | Encounter Summary ---
Author Organization [facility] Address [facility] [place] [address] Care Team Providers Care Senior Internet Sales Consultant Name Role Phone Sari Hay MD Primary Care Provider [phone] Encounter Details Date Type Department Care Team (Late st Contact Info) Description 02/11/2022 Telephone Main OR at [address] [phone] Lizett Amato Social History Tobacco Use Types Packs/Day Years [...] on filedocumented in this encounter Care Teams Senior Internet Sales Consultant Relationship Specialty Start Date End Date Sari Hay MD [address] [place], [place] [address] PCP - General 05/21/11 documented as of this encounter
--- OUTSIDE RECORDS SUMMARY | 2024-04-26 15:47 | XMS_ITS | Encounter Summary ---
Author Organization [facility] Address [facility] [place] [address] Care Team Providers Care Brothel Keeper Name Role Phone Sari Hay MD Primary Care Provider [phone] Reason for Visit * Reason Comments Post Op 03-21-22 Right TKA Encounter Details Date Type Department Care Team (Late st Contact Info) Description 04/23/2022 1:30 PM EDT Office [place] [address] Rod Valdez MD [facility] [place] [address] Presence of right artificial knee joint Social [...] 04/23/2022 1:23 PM ED T Respiratory Rate - - Oxygen Saturation - - Inhaled Oxygen Concentration - - Weight 114.8 kg (253 lb) 04/23/2022 1:23 PM EDT Height 177.8 cm (5' 10) 04/23/2022 1:23 PM EDT Body Mass Index 36.3 04/23/2022 1:23 PM EDT documented in this encounter Progress Notes * Teressa Taylor PA - 04/23/2022 1:30 PM EDT Arthroplasty/Orthopaedic History: 1. 5 ([facility]) LEFT TKA revision, joint infection 2. 6 ([facility]) LEFT TKA revision, aseptic loosening 3. 03/21/22 ([facility]) RIGHT TKA HPI: Sissy Eugene is a very pleasant 56 y.o. year-old female and is now 1 month post right total knee replacement. Her healing process regarding the knee has gone well, however she does have some feedback regardingher care after surgery. Anesthesia needed 4 attempts. She had some erythema and pruritis in the area after this which she took pictures of. This did progressively get better. She reports that everyone was nice, however she was very uncomfortable with the discharge process. She was discharged at 2:00 and was still incontinent. She had to wear a diaper and sit on a chux forthe car ride home. She feels that if they waited until 4:00 for discharge she would have had a muchdifferent experience. She felt very rushed. When she got home she found that the Cryo cuff had a pinhole in it which drenched the bandage. She attempted to have this remedies and was very flexible about offering solutions however ultimately barrowed one from a neighbor. If given the choice of hospitals, she would not go back there again. The knee feels pretty good. She had a pretty bad night of sleep last night due to discomfort. Usually takes an hour to get to sleep. Physical therapy is seeing her twice per week. No fevers, chills, nausea, vomiting, or symptoms of infection. Denies calf pain, chest pain, SOB. Anticoagulation status ASA 81mg BID for 30 days discussed stop date 04/18/22 Sissy has been ambulating with no assistive devices. ROS: Denies: fever, chills, night sweats, nausea, or vomiting BP 128/83 (BP Location (NBP): Right arm, Patient Position: Sitting, BP Cuff Sizes: Large Adult (32-43 cm)) Pulse 77 Temp 36.9 ??C (98.4 ??F) (Oral) Ht 177.8 cm (5' 10) Wt 114.8 kg (253 lb) BMI 36.30 kg/m?? Physical Exam: Well-appearing female in no acute distress. Alert and Oriented x 3 and answers all questions appropriately. The incision is well healed, with no signs of infection. Post Op Right Knee Exam: Knee ROM: Extension:0 Flexion: 120 Alignment: 0-4 degrees Neutral Stability: A/P Translation <5mm. Varus <5mm Valgus <5mm Extension La degrees or less Patella Tracking: Normal Pulses Palpable: Right PT: Yes Right DP:Yes Motor/Sensory: Distal Motor: Normal Distal Sensory: Normal Quadriceps Strength: 4 X-RAYS: Multiple radiographic views were obtained at my request and reviewed with the patient. X-rays show a well-placed prosthesis with no evidence of fracture, subsidence, loosening, or periprosthetic complication. Questionnaire Responses: [facility] Surgical Postop Visit 04/23/2022 PROMIS-10 General Health Good PROMIS-10 Quality of Life Good PROMIS-10 Physical Health Good PROMIS-10 Mental Health Very Good PROMIS-10 Social Activity Good PROMIS-10 Everyday Activities Moderately PROMIS-10 Pain 5 PROMIS-10 Fatigue Mild PROMIS-10 Social Roles Fair PROMIS-10 Anxious or Depressed Rarely PROMIS PHYSICAL HEALTH SCORE 42.3 PROMIS MENTAL HEALTH SCORE 48.3 HOOS JR Scores 70.43 KOOS JR Scores - Problems with surgical incision/wound after surgery Yes Problems with incision Pain, Redness, Swelling, Discharge or drainage Prescribed antibiotics No Caregiver after your surgical incision problem Nurse at your home Gone to ER since knee surgery No Where was ER located? - Date of ER visit - Reason for ER visit - Admitted to hospital since recent ortho surgery No Additional surgery on same body part Yes [place], [place] Surgeon Parra Date of surgery 10/01/2014 Reason for surgery Miniscus tear TKA Grade - Pain in other KNEE - Back pain at this moment - Satisfaction with Treatment Somewhat satisfied Choose Same Treatment Again Probably yes Employment status before injury - Returned to previous employment - Working at same capacity as before injury - Spending time in inpatient rehab facility - Rate overall condition today - [facility] Response 04/23/2022 HOOS JR Scores 70.43 KOOS JR Scores - [facility] Response 04/23/2022 HOOS JR Scores 70.43 KOOS JR Scores - ASSESSMENT/PLAN: Ms. Eugene is a 56 y.o. year old female status post right total knee replacement. Doing well postoperatively. Dr. Valdez spoke with Ana Rosa regarding her struggles with aftercare. I am glad she has been able to make so much progress with her knee. Continue weightbearing as tolerated and working on range of motion. We will see her back in 1 yearsfor repeat examination. X-rays will be needed at that time. Patient may return to normal activitiesas her pain and function allow. Precautions surrounding dental prophylaxis; Please avoid seeing the dentist for 6 months from your surgical date. If there is an emergency and you need to be seen by the dentist, please let us know and we will call in a prescription of antibiotics to be used prior to the appointment. According to the AAOS Appropriate Use Criteria we do recommend antibiotic use prior to dental procedures for Sissy. Recommended antibiotic: Amoxicillin (50mg/kg, maximum 2 gm) 1 hour prior to dental work; dose: 2 gm If Sissy has any changes in health status we recommend she contact our office prior to dental procedures for updated recommendations Please maintain good foot care and giving prompt attention to any source of infection throughout the body including foot ulcers and urinary tract infections. All questions were answered. Signed: GANESH Castle 04/23/2022 documented in this encounter Plan of Treatment Not on file documented as of this encounter Visit Diagnoses Diagnosis Presence of right artificial knee joint Knee joint replacement by other means documented in this encounter Care Teams Brothel Keeper Relationship Specialty Start Date End Date Sari Hay MD [address] [place] [address] PCP - General 05/21/11 documented as of this encounter
--- OUTSIDE RECORDS SUMMARY | 2024-04-26 15:47 | XMS_ITS | Encounter Summary ---
Author Organization [facility] [place] [address] Care Team Providers Care Sales And Service Advisor Name Role Phone Sari Hay MD Primary Care Provider [phone] Encounter Details Date Type Department Care Team (Late st Contact Info) Description 03/12/2022 10:00 AM EDT Clinical Support Same Day at [facility] [place] [address] Social History Tobacco Use Types Packs/Day Years Used Date Smoking Tobacco: Former Cigarettes 0.5 15 1 - 07/18/2003 Smokeless Tobacco: Never Alcohol Use Standard Drinks/Week Comments Yes 0 (1 standard drink = 0.6 oz pur e alcohol) Rarely Sex and Gender Information Value Date Recorded Sex Assigned at Not on file Gender Identity Not on file Sexual Orientation Not on file documented as of this encounter Progress Notes * Yonathan Barrera RN - 03/12/2022 10:00 AM EDT PAT questionnaire reviewed with patient while in Pre Admission testing. Pre- operative instruction booklet reviewed. Patient verbalizes a good understanding of all information reviewed. Patient [place] general [place] [facility]. Clearfast given. PLAN: Testing: Blood work Procedure date: 03/21 @[facility] with Dr. Valdez documented in this encounter Plan of Treatment Not on file documented as of this encounter Visit Diagnoses Not on filedocumented in this encounter Care Teams Sales And Service Advisor Relationship Specialty Start Date End Date Sari Hay MD [address] [facility] [address] [place] [address] PCP - General 05/21/11 documented as of this encounter
--- OUTSIDE RECORDS SUMMARY | 2024-04-26 15:47 | XMS_ITS | Encounter Summary ---
Author Organization [facility] Address [facility] [place] [address] Care Team Providers Care Motion Study Analyst Name Role Phone Sari Hay MD Primary Care Provider [phone] Encounter Details Date Type Department Care Team (Latest Contact Info) Description 10/06/2023 Travel Social History Tobacco Use Types Packs/Day Years [...] on filedocumented in this encounter Care Teams Motion Study Analyst Relationship Specialty Start Date End Date Sari Hay MD [address] [place] [address] PCP - General 05/21/11 documented as of this encounter
--- OUTSIDE RECORDS SUMMARY | 2024-04-26 15:47 | XMS_ITS | Encounter Summary ---
Author Organization [facility] [place] [address] Care Team Providers Care House Shorer Name Role Phone Sari Hay MD Primary Care Provider [phone] Encounter Details Date Type Department Care Team (Latest Contact Info) Description 03/12/2022 9:45 AM EDT [place] [address] Primary osteoarthritis of right knee; Pain of [...] Procedure Name Priority Date/Time Associated Diagnosis Comments HEMOGRAM Routine 03/12/2022 10:23 AM EDT Primary osteoarthritis of right knee Pain of right lower extremity DIFFERENTIAL, AUTOMATED Routine 03/12/2022 10:23 AM EDT Primary osteoarthritis of right knee Pain of right lower extremity HC VENIPUNCTURE Routine 03/12/2022 10:23 AM EDT Primary osteoarthritis of right knee Pain of right lower extremity HC PROTHROMBIN TIME Routine 03/12/2022 1 0:23 AM EDT Primary osteoarthritis of right knee Pain of right lower extremity HC CBC,PLT & AUTO DIFF Routine 03/12/2022 10:23 AM EDT Primary osteoarthritis of right knee Pain of right lower extremity BASIC METABOLIC PANEL (NON-FASTING) Routine 03/12/2022 10:23 AM EDT Primary osteoarthritis of right knee Pain of right lower extremity documented in this encounter Results * Differential, Automated (03/12/2022 10:23 AM EDT) Neutrophils % 46.8 % [facility] Neutr Abs (ANC) 2.43 1.70 - 6.10 x10(3)/[facility] Lymphocytes % 39.8 % [facility] Lymphocytes Abs 2.1 0.9 - 3.2 x10(3)/[facility] Monocytes % 8.5 % [facility] Monocyte Abs 0.4 0.3 - 0.9 x10(3)/[facility] Eosinophils % 3.5 % [facility] Eosinophils Abs 0.2 0.0 - 0.4 x10(3)/[facility] Basophils % 1.2 % [facility] Basophils Abs 0.1 0.0 - 0.1 x10(3)/[facility] Immature Gran % 0.20 % [facility] Comment: Immature granulocytes(IG's)percentage and absolute count will include metamyelocytes, myelocytes, and promyelocytes. Blood smears from CBCs yielding IG's will be scanned manually for concordance. If this scan disagrees with the automated IG or if promyelocytes are noted, a manual differential will be performed. Lorrie Gran Abs 0.01 0.00 - 0.04 x10(3)/[facility] Blood 03/12/2022 10:2 3 AM EDT 03/12/2022 10:34 AM EDT Narrative Resulting Agency Comment Spec In Lab Rod Valdez MD HEMATOLOGY ORDERABLE S [facility] [place] [address] * (ABNORMAL) Hemogram (03/12/2022 10:23 AM EDT) [facility] WBC 5.2 4.0 - 9.5 x10(3)/[facility] RBC 4.96 4.00 - 5.21 x10(6)/[facility] Hemoglobin 13.8 11.7 - 15.5 g/dL [facility] Hematocrit 42.3 35.7 - 45.8 % [facility] MCV 85.3 82.6 - 94.4 [facility] MCH 27.8 27.1 - 32.0 pg [facility] MCHC 32.6 31.7 - 35.0 g/dL [facility] Platelets 251 145 - 357 x10(3)/[facility] RDWSD 44.3 37.0 - 46.0 [facility] RDWCV 14.2(H) 11.5 - 14.1 % [facility] MPV 9.9 7.6 - 12.9 [facility] nRBC % Auto 0.0 % [facility] nRBC Abs Auto 0.000 0.000 - 0.000 x10(3)/[facility] Blood 03/12/2022 10:2 3 AM EDT 03/12/2022 10:34 AM EDT Narrative Resulting Agency Comment Spec In Lab Rod Valdez MD HEMATOLOGY ORDERABLE S [facility] [place] [address] * Basic Metabolic Panel (non-fasting) (03/12/2022 10:23 AM EDT) Pathologist [facility] Glucose Lvl 95 65 - 199 mg/dL [facility] Comment:Diabetes: >=200 mg/d L plus symptoms BUN 18 8 - 18 mg/dL [facility] Creatinine 0.86 0.70 - 1.20 mg/dL [facility] Sodium 142 135 - 145 mmol/L [facility] Potassium 4.4 3.5 - 5.0 mmol/L [facility] Comment: Please note: ??Patients with WBC >100,000 may have falsely elevated Potassium levels. ??For accurate Potassium quantification in these patients send serum separator tube (gold top) for subsequent determinations. ??Contact the Clinical Chemistry Laboratory if there are any questions. Chloride 106 98 - 107 mmol/L [facility] CO2 27 22 - 31 mmol/L [facility] Anion Gap 9 5 - 15 mmol/L [facility] Calcium 9.9 8.5 - 10.5 mg/dL [facility] Estimated GFR 74 >=60 mL/min/1. 73 m?? [facility] Comment: This patient? s estimated [...] In Lab Rod Valdez MD CHEMISTRY ORDERABLES [facility] [place] [address] * Prothrombin Time (03/12/2022 10:23 AM EDT) PT 11.2 9.4 - 12.5 sec [facility] INR [address] [facility] Comment: An INR <2.0 indicates [...] Comment Spec In Lab Rod Valdez MD HEMATOLOGY ORDERABLE S Performing Organization Address [facility] Co de Phone Number [facility] [place] [address] * APTT (03/12/2022 10:23 AM EDT) PTT 34 25 - 37 sec [facility] Comment: The PTT is NOT appropriate for heparin monitoring. Use the Anti-Xa level for heparin monitoring (HEP UFH) or LMWH monitoring (HEP LMW). A PTT less than 37 seconds generally indicates adequate hemostasis. Blood 03/12/2022 10:2 3 AM EDT 03/12/2022 10:34 AM EDT Narrative Resulting Agency Comment Spec In Lab Rod Valdez MD HEMATOLOGY ORDERABLE S [facility] [place] [address] documented in this encounter Visit Diagnoses Diagnosis Primary osteoarthritis of right knee Primary localized osteoarthrosis, lower leg Pain of right lower extremity documented in this encounter Care Teams House Shorer Relationship Specialty Start Date End Date Sari Hay MD [address] [place] [address] PCP - General 05/21/11 documented as of this encounter
--- OUTSIDE RECORDS SUMMARY | 2024-04-26 15:47 | XMS_ITS | Encounter Summary ---
Author Organization [facility] Address [facility] [place] [address] Care Team Providers Care Lead Burner Apprentice Name Role Phone Sari Hay MD Primary Care Provider [phone] Encounter Details Date Type Department Care Team (Late st Contact Info) Description 02/07/2022 Telephone Orthopaedics at [address] [phone] Rod Valdez MD [facility] [place] [address] Social History Tobacco Use Types Packs/Day Years [...] encounter Miscellaneous Notes * Telephone Encounter - Mariama Gusman - 02/07/2022 4:23 PM EDT Patient is looking to confirm surgery in mid-March with Dr. Valdez @ [facility]. 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 Please look into CASTILLO that was completed & currently being reviewed by anesthesia? documented in this encounter Plan of Treatment Not on file documented as of this encounter Visit Diagnoses Not on filedocumented in this encounter Care Teams Lead Burner Apprentice Relationship Specialty Start Date End Date Sari Hay MD [address] [facility] [address] [place] [address] PCP - General 05/21/11 documented as of this encounter
--- OUTSIDE RECORDS SUMMARY | 2024-04-26 15:47 | XMS_ITS | Encounter Summary ---
Author Organization [facility] Address [facility] [place] [address] Care Team Providers Care Genetic Counsellor Name Role Phone Sari Hay MD Primary Care Provider [phone] Reason for Visit * Reason Onset Date Comments Medication Refill 05/02/2022 Encounter Details Date Type Department Care Team (Late st Contact Info) Description 05/02/2022 [place] [address] Rod Valdez MD [facility] [place] [address] Presence of right artificial knee joint Social [...] encounter Miscellaneous Notes * Telephone Encounter - Nicky Guadalupe, [facility] - 05/05/2022 9:00 AM EDT Images from the original note were not included. Medication Refill Request 1. Surgery/Injury/Provider: 03/21/22 (Courtney) RIGHT TKA Medication being requested: oxycodone 5mg Query: Last refill or Original Rx: Seen within 30 days (if no, than when): Follow Up: 04/23/22 [facility]CK plan stated Follow up 1 year How is this medication being used currently: Not currently taking. Patient attempted to do without,but has been unable to sleep. Pain level: Patient stated pain is worse at night and making it difficult/impossible to sleep. Bowel concerns: none Other pain medications used and how: Tylenol Yes Gabapentin No Naproxen Yes OTHER n/a Medication Taper Plan: Taper to the lowest effective maintenance dose, 5mg nightly prn. 10 tablets pended per Brandon ANDERSEN. Refills of this medication should no longer be needed after this. Continue additional scheduled pain medication along with RICE. Teaching done regarding: taking nonnarcotic pain medications, taking the least amount of opioid needed for the least amount of time for adequate pain management and tapering of opioids with verbalized understanding by the patient. Requested Prescription to be sent electronically to [facility] (location). Prescription prepped and pended for Brandon (provider) review. The patient knows how to contact orthopaedics if any further questions or concerns occur. documented in this encounter Plan of Treatment Not on file documented as of this encounter Visit Diagnoses Diagnosis Presence of right artificial knee joint Knee joint replacement by other means documented in this encounter Care Teams Genetic Counsellor Relationship Specialty Start Date End Date Sari Hay MD [address] [place] [address] PCP - General 05/21/11 documented as of this encounter
--- OUTSIDE RECORDS SUMMARY | 2024-04-26 15:47 | XMS_ITS | Encounter Summary ---
[place] [address] Care Team Providers Care Foreign Language Professor Name Role Phone Sari Hay MD Primary Care Provider Reason for Visit * Reason Onset Date Comments Medication Refill 09/30/2022 Encounter Details Date Type Department Care Team (Late st Contact Info) Description 09/30/2022 [place] [address] Frankie Sun, RMA S/P revision of total knee, left; Presence of right artificial knee joint Social [...] as of this encounter Visit Diagnoses Diagnosis S/P revision of total knee, left Presence of right artificial knee joint Knee joint replacement by other means documented in this encounter Care Teams Foreign Language Professor Relationship Specialty Start Date End Date Sari Hay MD [address] [place] [address] PCP - General 05/21/11 documented as of this encounter
--- OUTSIDE RECORDS SUMMARY | 2024-04-26 15:47 | XMS_ITS | Encounter Summary ---
Author Organization [facility] Address [facility] [place] [address] Care Team Providers Care Lead Assembler Name Role Phone Sari Hay MD Primary Care Provider [phone] Encounter Details Date Type Department Care Team (Late st Contact Info) Description 09/22/2023 Orders [place] [address] Rod Valdez MD [facility] ORTHOPAEDIC [place] [address] S/P revision of total knee, left; Presence [...] means documented in this encounter Care Teams Lead Assembler Relationship Specialty Start Date End Date Sari Hay MD [facility] [address] [place], [place] [id number] PCP - General 05/21/11 documented as of this encounter
--- OUTSIDE RECORDS SUMMARY | 2024-04-26 15:47 | XMS_ITS | Encounter Summary ---
Author Organization [facility] Address [facility] [place] [address] Care Team Providers Care Data Support Analyst Name Role Phone Sari Hay MD Primary Care Provider [phone] Reason for Referral * Home Health Care (Routine) - Closed Specialty Diagnoses / Procedures Referred By Emmanuel cisneros Referred To Contact Diagnoses Primary osteoarthritis of right knee Rod Valdez MD [facility] DR [place]OPA[place] [address] [facility] & [address] [place] [address] Referral ID Status Reason Start Date Expiration Date V isits Requested Visits Authorized [id number] Closed Consult, Test & Treat 03/21/2022 09/17/2022 999 999 Reason for Visit * Auth/Cert Specialty Diagnoses / Procedures Referred By Emmanuel cisneros Referred To Contact Diagnoses Right Knee DJD Procedures PRO TOTAL KNEE ARTHROPLASTY TOTAL KNEE ARTHROPLASTY (WRVU 20.72) MODIFIER MEDACTA-TOTAL KNEE Referral ID Status Reason Start Date Expiration Date Visits Re quested Visits Authorized [id number] 1 1 Encounter Details Date Type Department Care Team (Late st Contact Info) Description 03/21/2022 6:07 AM EDT - 03/21/2022 1:44 PM EDT Hospital Encounter PACU at [address] [phone] Rod Valdez MD [facility] DR [place] [address] Primary osteoarthritis of right knee Discharge Disposition: Home Social History Tobacco Use [...] Sign Reading Time Taken Comments Blood Pressure 111/78 03/21/2022 12:[address] anding Pulse 58 03/21/2022 11:20 AM EDT Temperature 36.2 ??C (97.2 ??F) 03/21/2022 9:55 AM ED T Respiratory Rate 14 03/21/2022 11:20 [...] bowel movement. You can also take an hccl-edh-ajijoye medication, Miralax if needed to combat constipation. [...] as much as possible. Call your doctor ([phone]) if you develop: Fever greater than 100.5 Severe nausea or vomiting Increasing pain that is not controlled by pain medications Increasing redness, swelling, or drainage from incisions Change in sensation FOLLOW-UP APPOINTMENTS: 1. You will have follow-up appointments at [facility] as indicated below in Future Appointment and Orders. 2. You will need to have x-rays prior to your follow-up appointment on 04/23/22. Please come to Radiology, desk 3T, 1 hour BEFORE that appointment for those x-rays. Future Appointments Date Time Provider Department Center 04/23/2022 12:45 PM [facility] DX ROOM 2 MH Xray [facility] Rad 04/23/2022 1:30 PM Rod Valdez MD [facility] ORTH 3C [facility] If you have questions or concerns: Thursday through Thursday, 8 AM - 5 PM, please call Dr. Rod Valdez MD's office at . If it is after 5 PM, the weekend, or holidays, please call and ask to speak with theOrthopedic resident on-call. documented in this encounter Medications [...] as of this encounter Progress Notes * Daniel, Morgyn I, RN - 03/21/2022 1:06 PM EDT Patient [...] They will be seen and evaluated by [facility] prior to discharge. Their post-discharge PT planis: [facility]. 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 They have requested a referral to [facility]. No perceived barriers to same-day discharge. Gris Gallagher RN [facility] 03/19/22 11:54 AM documented in this encounter [...] Miscellaneous Notes * Initial Assessments - Geoffrey Sanchez, PT - 03/21/2022 1:56 PM EDT Inpatient [...] EACH performed by Stanley Koo MD at [facility] ??? PRO REVISE KNEE JOINT REPLACE, 1 PART Left 02/10/2019 @TOTAL KNEE REVISION ARTHROPLASTY, ONE COMPONENT (WRVU 21.12) performed by Rod Valdez MD [facility] MAIN OR ??? PRO REVISE KNEE JOINT REPLACE, 1 PART Left 03/14/2021 TOTAL KNEE REVISION ARTHROPLASTY, ONE COMPONENT (WRVU 21.12) performed by Rod Valdez MD at [facility] MAIN OR ??? PRO XFER SINGLE SUPERFICI LOW LEG TENDON Left 10/01/2015 TENDON TRANSFER, ANKLE, SUPERFICIAL performed by Stanley Koo MD at [facility] ??? 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 Goals: Short Term Goals: Slider Assembler Goals: Plan: Therapy Frequency (PT): once for [...] minutes Total Treatment Time: 25 minutes Geoffrey Sanchez, [facility] Physical Therapy Inpatient Rehabilitation Department * Initial [...] EACH performed by Stanley Koo MD at [facility] ??? PRO REVISE KNEE JOINT REPLACE, 1 PART Left 02/10/2019 @TOTAL KNEE REVISION ARTHROPLASTY, ONE COMPONENT (WRVU 21.12) performed by Rod Valdez MD [facility] MAIN OR ??? PRO REVISE KNEE JOINT REPLACE, 1 PART Left 03/14/2021 TOTAL KNEE REVISION ARTHROPLASTY, ONE COMPONENT (WRVU 21.12) performed by Rod Valdez MD at [facility] MAIN OR ??? PRO XFER SINGLE SUPERFICI LOW LEG TENDON Left 10/01/2015 TENDON TRANSFER, ANKLE, SUPERFICIAL performed by Stanley Koo MD at [facility] ??? 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 Goals: Assisted Goals - OT Slider Assembler Goals to be met by: 03/21/22 Patient [...] Clinical Decision Making Complexity Score: Low - 97251 Timed Code Treatment: 30 minutes Untimed CodeTreatment: 10 minutes Total Treatment Time: 40 minutes Julia Espinal OT Occupational Therapy Inpatient Rehabilitation Department * Op Note - Rod Valdez MD - 03/21/2022 8:06 AM EDT [facility] Operative Note [address] Patient Name: Sissy Eugene : [id number] MR#: [id number] Case Date: 03/21/2022 Case Scheduled Time: 729 [...] Soft tissue resection and balancing: The laminar machine shorthand teacher was used to elevate the femur and [...] Implant Name Type Inv. Item Serial No. Epic Willow Analyst Lot No. LRB No. Used Action CEMENT BONE MEDIUM VISCOSITY 40GM SINGLE DOSE PMMA SMARTSET ([id number]) (AutoReq) - [id number] IMPLANTS CEMENT BONE MEDIUM VISCOSITY 40GM SINGLE DOSE PMMA SMARTSET ([id number]) (AutoReq) [employer] [facility] [id number] Right 2 Implanted COMP PATELLAR KNEE SIZE 2 RESURFACING UHMWPE GMK E CROSS ([id number]) (AUTOREQ) - [id number] IMPLANTS COMP PATELLAR KNEE SIZE 2 RESURFACING UHMWPE GMK E CROSS ([id number]) (AutoReq) [employer] [place] - [employer] [place] Right 1 Implanted BASEPLATE TIBIAL SZ 4 RIGHT JULIA COCR GMK ([id number]) (AUTOREQ) - [id number] IMPLANTS BASEPLATE TIBIALSZ 4 RIGHT JULIA COCR GMK ([id number]) (AutoReq) [employer] [place] - [employer] [place] [id number] Right 1 Implanted INSERT TIBIAL 12MM SZ 4 RT FIX POLY GMK E CROSS ([id number]) (AUTOREQ) - [id number] IMPLANTS INSERT TIBIAL 12MM SZ 4 RT FIX POLY GMK E CROSS ([id number]) (AutoReq) [employer] [place] - [employer] [place] Right 1 Implanted COMP FEMORAL KNEE SZ 4+ RIGHT JULIA PS COCR ([id number]) (AUTOREQ) - [id number] IMPLANTS COMP FEMORAL KNEE SZ 4+ RIGHT JULIA PS COCR ([id number]) (AutoReq) MEDACTA [facility] - MEDACTA [id number] Right 1 Implanted documented in this encounter [...] Condyle & Plateau Medial & Lat Compartments (90846) 03/21/2022 7:44 AM EDT Right Knee DJD documented in this encounter Visit Diagnoses Diagnosis Primary osteoarthritis of right knee Primary localized osteoarthrosis, lower leg documented in this encounter Administered Medications Inactive Administered [...] Given 03/21/2022 6:31 AM EDT 975 mg celecoxib (CeleBREX) capsule 400 mg 400 mg, Oral, ONCE, 1 dose, On Thu03/21/22 at 0630, Administer on arrival to Same Day Program, Day of Surgery (Day of Procedure), Routine Given 03/21/2022 6:31 AM EDT 400 mg fentaNYL (PF) (50 mcg/mL) injection 12.5-25 mcg [...] Given 03/21/2022 11:27 AM EDT 25 mcg lactated ringers infusion 1,000 mL, Intravenous, CONTINUOUS, [...] (Given - Provid er: Stephen Sanchez I, ODIN) ceFAZolin (Ancef) 2 g vial attach to [...] Until Thu03/21/22 at 1344, Intra-Operative (Intra-Procedure), Routine 909 (Given - Provid er: Rod Valdez MD [...] Until Thu03/21/22 at 1344, Intra-Operative (Intra-Procedure), Routine 909 (Given - Provid er: Rod Valdez MD [...] RN) documented in this encounter Care Teams Data Support Analyst Relationship Specialty Start Date End Date Sari Hay MD [facility] [address] [place] [address] PCP - General 05/21/11 documented as of this encounter
--- OUTSIDE RECORDS SUMMARY | 2024-04-26 15:47 | XMS_ITS | Encounter Summary ---
Author Organization [facility] Address [facility] [place] [address] Care Team Providers Care Loop Drier Operator Name Role Phone Sari Hay MD Primary Care Provider [phone] Encounter Details Date Type Department Care Team (Late st Contact Info) Description 01/22/2022 Telephone [place] [phone] Rod Valdez MD [facility] DR [place] [address] Social History Tobacco Use Types Packs/Day Years [...] encounter Miscellaneous Notes * Telephone Encounter - Kelsey Colby E - 01/22/2022 4:22 PM EDT I called patient to relay MRI information. We need to do a follow up JASON, and she would like it inperson. I did not see anything open for a few weeks with Dr. Valdez. Could you please see if there isany way we can find time soon and call patient back? Thank you very much. PH: [phone] documented in this encounter Plan of Treatment Not on file documented as of this encounter Visit Diagnoses Not on filedocumented in this encounter Care Teams Loop Drier Operator Relationship Specialty Start Date End Date Sari Hay MD [address] [facility] 1 [place] [address] PCP - General 05/21/11 documented as of this encounter
--- OUTSIDE RECORDS SUMMARY | 2024-04-26 15:47 | XMS_ITS | Encounter Summary ---
Author Organization [facility] Address [facility] [place] [address] Care Team Providers Care Fashion Design Professor Name Role Phone Sari Hay MD Primary Care Provider [phone] Reason for Visit * Reason Comments Follow Up Surgery R TKA 03-21-22 CONT P AIN, LEFT KNEE PAIN Encounter Details Date Type Department Care Team (Late st Contact Info) Description 10/07/2023 11:30 AM EST Office [place] [address] Rod Valdez MD [facility] DR [place]OP[place] [address] S/P revision of total knee, left; Presence [...] Sign Reading Time Taken Comments Blood Pressure - - Pulse - - Temperature - - Respiratory Rate - - Oxygen Saturation - - Inhaled Oxygen Concentration - - Weight 114.8 kg (253 lb) 10/07/2023 10:52 AM EST Height 176.5 cm (5' 9.5) 10/07/2023 10:52 AM ES T Body Mass Index 36.83 10/07/2023 10:52 AM EST documented in this encounter Progress Notes * Teressa Taylor PA - 10/07/2023 11:30 AM EST Arthroplasty/Orthopaedic History: 02/10/19 ([place]) LEFT TKA revision, joint infection 03/14/21 ([place]) LEFT TKA revision, aseptic loosening 03/21/22 ([place]) RIGHT TKA HPI: Sissy Eugene is a very pleasant 57 y.o. year-old female and is now 18 month post LEFT TKA revision and RIGHT TKA, RIGHT TKA mostly pain free. Sometimes feels it when there is rain. LEFT TKA revision. Has good and bad days. Today it is a bit swollen and achy. Her knee is a bit tight when on the bike. No pain with going downhill it doesn't hurt. Going down stairs there is a bit of pain but this is not the arthritic pain that she had been having. She does feel a bit limited with her LEFT knee. Is not able to ski any more. She is cautious with pivoting. She is thinking that she is going skating this year. Able to get down on her knees for short periods of time. Sissy has been ambulating with no assistive devices. ROS: Denies: fever, chills, night sweats, nausea, or vomiting Ht 176.5 cm (5' 9.5) Wt 114.8 kg (253 lb) BMI 36.83 kg/m?? Physical Exam: Well-appearing female in no acute distress. Alert and Oriented x 3 and answers all questions appropriately. The incision is well healed, with no signs of infection. Post Op Right Knee Exam: Knee ROM: Extension:0 Flexion: 135 Alignment: 0-4 degrees Neutral Stability: A/P Translation <5mm. Varus <5mm Valgus <5mm Extension La degrees or less Patella Tracking: Normal Pulses Palpable: Right PT: Yes Right DP:Yes Motor/Sensory: Distal Motor: Normal Distal Sensory: Normal Quadriceps Strength: 4 Post Op LEFT Knee Exam: Knee ROM: Extension:0 Flexion: 95 Alignment: 0-4 degrees Neutral Stability: A/P Translation [...] subsidence, loosening, or periprosthetic complication. Questionnaire Responses: 10/06/2023 8:00 PM [facility] Surgical Postop Visit KOOS JR Scores 63.78 10/06/2023 8:00 PM [facility] [place] Response KOOS JR Scores 63.78 10/06/2023 8:00 PM [facility] [place] Response KOOS JR Scores 63.78 ASSESSMENT/PLAN: Ms. Eugene is a 57 y.o. year old female status post right total knee replacement. Doing well postoperatively. Continue weightbearing as tolerated and working on range of motion. We will see her back in 5 yearsfor repeat examination. BILATERAL knee X-rays will be needed at that time. Patient may return to normal activities as her pain and function allow. Precautions surrounding [...] hour prior to dental work; dose: 2 gmdue to PJI. If Sissy has any changes in health status we recommend she contact our office prior to dental procedures for updated recommendations Please maintain good foot care and giving prompt attention to any source of infection throughout the body including foot ulcers and urinary tract infections. All questions were answered. Signed: GANESH Castle 10/07/2023 documented in this encounter Plan of Treatment Not on file documented as of this encounter Visit Diagnoses Diagnosis S/P revision of total knee, left Presence of right artificial knee joint Knee joint replacement by other means documented in this encounter Care Teams Fashion Design Professor Relationship Specialty Start Date End Date Sari Hay MD [facility] [address] [place] [address] PCP - General 05/21/11 documented as of this encounter
--- OUTSIDE RECORDS SUMMARY | 2024-04-26 15:47 | XMS_ITS | Encounter Summary ---
Author Organization [facility] Address [facility] [place] [address] Care Team Providers Care Paper Inspector Name Role Phone Sari Hay MD Primary Care Provider [phone] Reason for Visit * Reason Onset Date Comments Questions 07/03/2022 Encounter Details Date Type Department Care Team (Late st Contact Info) Description 07/03/2022 Telephone [place] [address] [facility] [address] ORTHOPAEDIC [place] [address] Questions Social History Tobacco Use Types Packs/Day Years [...] encounter Miscellaneous Notes * Telephone Encounter - Kallie Anaya - 07/11/2022 9:09 AM EDT Called patient to relay to her , per Marissa, no labs are needed prior to upcoming appt. * Telephone Encounter - Lamar Strong - 07/10/2022 1:55 PM EDT Ana Rosa is calling in to check on her appointment for 07/17, which she states was given to her by Miya, but she checked her my account and there is no appointment showing. I gave her an option for 07/16. She said she is suppose to be having labs prior. Please advise what the plan should be for this appointment on 07/16/2022 or if she needs to be seenvs having some other procedure or plan in place for 07/17? * Telephone Encounter - Miya Reed RN - 07/03/2022 2:21 PM EDT TC to Ms. Eugene. Hx L TKA/R in 2020, R TKA 03/2022. She complaining of chronic discomfort now in both knees, which are swollen and warm. She describes them as both feeling unstable, not the prosthesis, but the knee. Going down stairs is difficult,and she feels she is going backwards. This has gotten considerable worse over the past two weeks, which have seen a steady decline. She also has two of what look like bug bites on the R incision, not open or draining. Forwarding to Dr. Valdez's team for review. * Telephone Encounter - Leeanne Randolph - 07/03/2022 12:07 PM EDT Name of person calling: patient Facility person is calling from?: no Was this a new injury? No Have you had Surgery?yes If so when?03/21/22 RIGHT KNEE Who was the Surgeon?ORE, What is the question: Patient called in stating she has been having some spots on her right knee that have been irritated and itchy. She states that both knees are very uncomfortable and feel swollenwhen she walks . She would like to speak to a nurse regarding this pain and irritation Best number to reach the caller: [phone] documented in this encounter Plan of Treatment Not on file documented as of this encounter Visit Diagnoses Not on filedocumented in this encounter Care Teams Paper Inspector Relationship Specialty Start Date End Date Sari Hay MD [address] [place] [address] PCP - General 05/21/11 documented as of this encounter
--- OUTSIDE RECORDS SUMMARY | 2024-04-26 15:47 | XMS_ITS | Encounter Summary ---
Author Organization [facility] Address [facility] [address] [address] Care Team Providers Care Wet Roaster Name Role Phone Sari Hay MD Primary Care Provider Encounter Details Date Type Department Care Team (Late st Contact Info) Description 10/07/2023 10:15 AM EST - 10/07/2023 11:59 PM [facility] Hospital Encounter XRay at [address] [place] [address] Rod Valdez MD [facility] [address] S/P revision of total knee, left; Presence of right artificial knee joint Discharge Disposition: Home Social History Tobacco Use [...] Sig Dispensed Refills Start Date End Date amoxicillin (Amoxil) 500 mg tabletIndications:S/P revision of total knee, left,Presence of right artificial knee joint Take 4 Tablets 1 hour prior to dental procedure 4 tablet 3 10/07/2023 aspirin EC 81 mg Tablet, Delayed Release (E.C.) Take 1 tablet by mouth 2 times daily. 60 tablet 03/21/2022 acetaminophen (Tylenol) 325 mg Tablet Take 650 mg by mouth every 4 hours as needed for Pain. ibuprofen (Advil) 200 mg Tablet Take 400 mg by mouth nightly as needed for Pain. documented as of this encounter Plan of Treatment Not on file documented as of this encounter Procedures Procedure Name Priority Date/Time Associated Diagnosis Comments XR KNEE AP AND LAT BILAT Routine 10/07/2023 10:38 AM EST S/P revision of total knee, left Presence of right artificial knee joint documented in this encounter Results * XR Knee 1-2 Views Bilat (Generic) (10/07/2023 10:38 AM EST) Anatomical Region Laterality Modality Knee Bilateral Digital Radiogra phy Impressions 10/07/2023 2:24 PM EST Right TKA, and revised left TKA. No evidence of hardware complication or acute osseous findings I have personally reviewed the image(s) and the resident's interpretation and agree with the findings, Jason Baum MD at 10/07/2023 2:24 PM Thank you for letting us participate in the care of this patient. ??If you are a health care provider and have any questions regarding this report, please contact the number below. ??For patients who have questions please contact the health home care associate that requested your imaging first. ? Narrative 10/07/2023 2:24 PM EST EXAMINATION: XR KNEE 1-2 VIEWS BILAT (GENERIC) CLINICAL HISTORY: s/p Bilat TKA TECHNIQUE: 2 views BILATERAL knee COMPARISON: Radiograph knee 04/23/2022 FINDINGS: Right knee: Status post right TKA. ??The hardware are intact and stable in alignment. No evidence of periprosthetic fracture or loosening. Left knee: Status post revised left TKA with long tibial stem component. ??The hardware are intact and stable in alignment. No evidence of periprosthetic fracture or loosening. No significant soft tissue abnormalities. Procedure Note Jason Baum MD - 10/07/2023 EXAMINATION: XR KNEE 1-2 VIEWS BILAT (GENERIC) CLINICAL HISTORY: s/p Bilat TKA TECHNIQUE: 2 views BILATERAL knee COMPARISON: Radiograph knee 04/23/2022 FINDINGS: Right knee: Status post right TKA. The hardware are intact and stable in alignment.No evidence of periprosthetic fracture or loosening. Left knee: Status post revised left TKA with long tibial stem component. Thehardware are intact and stable in alignment. No evidence of periprosthetic fractureor loosening. No significant soft tissue abnormalities. IMPRESSION Right TKA, and revised left TKA. No evidence of hardware complication oracute osseous findings I have personally reviewed the image(s) and the resident's interpretationand agree with the findings, Jason Baum MD at 10/07/2023 2:24 PM Thank you for letting us participate in the care of this patient. If youare a health care provider and have any questions regarding this report,please contact the number below. For patients who have questions please contactthe health home care associate that requested your imaging first. Rod Valdez MD IMG DX ORDERABLES documented in this encounter Visit Diagnoses Diagnosis S/P revision of total knee, left Presence of right artificial knee joint Knee joint replacement by other means documented in this encounter Care Teams Wet Roaster Relationship Specialty Start Date End Date Sari Hay MD [address] [place] [address] PCP - General 05/21/11 documented as of this encounter
--- OUTSIDE RECORDS SUMMARY | 2024-04-26 15:47 | XMS_ITS | Encounter Summary ---
[facility] [place] [address] Care Team Providers Care Rack Loader Name Role Phone Sari Hay MD Primary Care Provider [phone] Reason for Visit * Reason Onset Date Comments Medication Refill 03/27/2022 Encounter Details Date Type Department Care Team (Late st Contact Info) Description 03/27/2022 [place] [id number] Sarahy Hernandez, RN Presence of right artificial knee joint Social [...] encounter Miscellaneous Notes * Telephone Encounter - Sarahy Hernandez RN - 03/27/2022 1:07 PM EDT Images from the original note were not included. Medication Refill Request Surgery/Injury/Provider: TOTAL KNEE ARTHROPLASTY (WRVU 20.72) - Right MODIFIER MEDACTA-TOTAL KNEE - Right 03/21/22 Dr. Valdez Medication being requested: oxycodone Query: Last refill or Original Rx: Seen within 30 days (if no, than when): Follow Up: 04/23/22 How is this medication being used currently: patient taking 1 or 2 pills during day, But at night May take one every 2 hours depending on the Night. This regimen has worked well for her. Pain level: 6 /10 Bowel concerns: none Other pain medications used and how: Tylenol Yes tid Gabapentin Yes 300 at hs Naproxen Yes 500bid OTHER ASA 81mg bid Medication Taper Plan: Taper to the lowest effective maintenance dose, Continue additional scheduled pain medication along with RICE. Teaching done regarding: taking nonnarcotic pain medications, taking the least amount of opioid needed for the least amount of time for adequate pain management and tapering of opioids with verbalized understanding by the patient. Requested Prescription to be sent electronically to [facility](location). Prescription prepped and pended for Marissa Taylor's (provider) review. The patient knows how to contact orthopaedics if any further questions or concerns occur. Sarahy Hernandez RN [facility] [place] [facility] Ortho Team * Telephone Encounter - Sarahy Hernandez RN - 03/27/2022 1:06 PM EDTFrom: Sissy Eugene To: Office of Mayuri Pearce MD Sent: 03/27/2022 10:58 AM EDT Subject: Medication Renewal Request Refills have been requested for the following medications: oxyCODONE (Roxicodone) 5 mg Tablet [Mayuri Pearce] Preferred pharmacy: [id number] - [address] Delivery method: Pickup documented in this encounter Plan of Treatment Not on file documented as of this encounter Visit Diagnoses Diagnosis Presence of right artificial knee joint Knee joint replacement by other means documented in this encounter Care Teams Rack Loader Relationship Specialty Start Date End Date Sari Hay MD [address] [place] [address] PCP - General 05/21/11 documented as of this encounter
--- OUTSIDE RECORDS SUMMARY | 2024-04-26 15:47 | XMS_ITS | Encounter Summary ---
Author Organization [facility] Address [facility] [place] [address] Care Team Providers Care Orthopedic Surgeon Name Role Phone Sari Hay MD Primary Care Provider [phone] Reason for Referral * Physical Therapy (Routine) - Closed Specialty Diagnoses / Procedures Referred By Emmanuel cisneros Referred To Contact Physical Therapy Diagnoses Primary osteoarthritis of right knee Rod Valdez MD [facility] [place] [address] Referral ID Status Reason Start Date Expiration Date V isits Requested Visits Authorized [id number] Closed Evaluate and Treat Non PCP 03/12/2022 09/08/2022 12 12 Reason for Visit * Reason Comments Pre-op Exam 03-21-22 Right TKA Encounter Details Date Type Department Care Team (Late st Contact Info) Description 03/12/2022 8:30 AM EDT [place] [address] Rod Valdez MD [facility] [place] [address] Primary osteoarthritis of right knee Social History Tobacco Use Types Packs/Day Years [...] Sign Reading Time Taken Comments Blood Pressure 120/70 03/12/2022 8:23 AM EDT Pulse 61 03/12/2022 8:23 AM EDT Temperature - - Respiratory Rate - - Oxygen Saturation 100% 03/12/2022 8:23 AM EDT Inhaled Oxygen Concentration - - Weight 111.1 kg (245 lb) 03/12/2022 8:23 AM EDT Height 177.8 cm (5' 10) 03/12/2022 8:23 AM EDT Body Mass Index 35.15 03/12/2022 8:23 AM EDT documented in this encounter Progress Notes * Marina Quintero RN - 03/12/2022 8:30 AM EDT Arthroplasty History/Previous Orthopaedic Surgery: 1. 09/29/17 Left TKA (Christy Fischer) 2. 01/18/19 Left knee arthroscopic synovectomy for medial pain and stiffness 3. 5 (Courtney) LEFT TKA revision, joint infection (I&D, poly exchange) 4. 6 (Courtney) LEFT TKA revision, aseptic loosening. Femur and patella retained, revised tibial component This note is recorded by Marina Quintero RN acting as a scribe for Dr. Sonya Vadlez. PREOPERATIVE VISIT Interval History: Sissy Eugene is a pleasant 56 y.o. year old female being seen today to discuss a right total knee replacement. Her history was once again discussed and is outlined in a previous note. They have reviewed their options and at this point are expressing a desire to proceed with surgery. Physical Exam: Exam is previously documented in a note and is essentially unchanged. Knee Exam: Range of motion 0-110 o. Inspection of her skin on the operative side demonstrates No skin breakdown or open wounds. Significant Medical Comorbidities Patient Active Problem List Diagnosis Code ??? Hammer toe of left foot M20.42 ? ? s/p left knee I&D, polyethylene exchange for acute PJI with Dr. Valdez 02/10/19 T84.53XA ??? Obesity, Class II, BMI 35-39.9 E66.9 ??? Closed fracture of distal end of left radius with routine healing, DOI: 09/05/2019 S52.502D ??? S/P revision of total knee, left [place]eda 03/14/21 Z96.652 ??? Plantar fasciitis, right M72.2 ??? Leona sign present in right knee S83.206A ??? Primary osteoarthritis of right knee M17.11 VITALS: BP Readings from Last 1 Encounters: 03/12/22 120/70 Pulse Readings from Last 1 Encounters: 03/12/22 61 Height: 177.8 cm (5' 10) Weight: 111.1 kg (245 lb) Body mass index is 35.15 kg/m??. Relevant Lab Studies Lab Results Component Value Date WBC 9.1 01/03/2022 HGB 13.3 01/03/2022 HCT 40.7 01/03/2022 PLATELET 281 01/03/2022 CREATININE 0.90 01/03/2022 BUN 19 (H) 01/03/2022 NA 141 01/03/2022 K 4.0 01/03/2022 CRP 5.9 (H) 01/03/2022 SEDRATE 23 01/03/2022 INR 0.9 03/05/2021 No results for input(s): HA1C in the last 7068 hours. No results for input(s): ALBUMIN in the last 168 hours. CrCl cannot be calculated (Patient's most recent lab result is older than the maximum 30 days allowed.). TJA Clotting and Bleeding Assessment Genetic predisposition or history of DVT or PE: No Hypercoaguable state?: No History of bleeding disorder?: No GI bleed or history of hemorrhagic stroke within the past 2 years: No Patient on lifelong anticoagulant for other reasons: No Discharge anticoagulation plan: ASA 81mg BID for 30 days Infection Prevention Patient demonstrated appropriate skin integrity/infection knowledge level after instructions provided: Yes Patient demonstrated appropriate dental prophylaxis knowledge level after instructions provided: Yes Patient demonstrated appropriate understanding of chlorhexideine wash and mupirocin ointment: Yes General Assessment Total joint preparedness for surgery: Received binder, 1:1, [employer] Online Patient understands when to call the office pre-op and post-op: Verbalizes understanding Patient currently on narcotics: No Patient has narcotic agreement signed: No Assessment and Plan: This is a pleasant 56 y.o. year-old female who presents for a preoperative appointment today for consideration of a right total knee replacement. We had a discussion regarding the risks and benefits of surgery. I indicated that in my opinion, this is a treatment option most likely to restore a morenormal, pain- free level of function and that we have exhausted reasonable non-operative alternatives. I discussed how I perform the procedure and all of their questions were answered. We discussed the risks of a total knee arthroplasty: Bleeding, infection, scar formation, dislocation, leg length inequality, persistent pain, stiffness, bursitis, failure/wear/loosening/breakage of implants, implant malposition, need for additional/future surgery, fracture, clot formation, embolus, stroke, nerve palsy, blood vessel injury, skin numbness, anesthetic and/or medical complications, . We reviewed options for postoperative DVT prophylaxis, based on AAOS guidelines. We discussed the pros and cons of different anticoagulants in terms of effectiveness and clot / embolus preventions vs. risks of bleeding and wound complications. We also reviewed their preferences regarding use of blood products and confirmed that while we would endeavor to minimize the risks of needing any transfusions, if circumstances were such that one ormore were indeed required, she would NOT refuse a blood transfusion. Sissy Eugene will be prescribed a prescription opioid for the treatment of acute post-operativepain related to orthopedic surgery. Sissy Eugene was advised to take the smallest dose possibleto control their pain and as their pain improves to take smaller doses and increase the time between doses. The Acute Opioid Therapy Informed Consent form has been completed and sent to medical records for scanning to chart. Opioid Risk Assessment 03/12/2022 DAST-10 Risk Assessment None (0) Some recent data might be hidden Opioid PDMP 03/12/2022 03/06/2021 02/10/2019 [place] PDMP Query Date 03/12/2022 03/06/2021 02/15/2019 [place] PDMP Query Date 03/12/2022 03/06/2021 02/15/2019 [place] PDMP Query Date 03/12/2022 03/06/2021 02/15/2019 In addition to this medication, non-opioid medications will be prescribed for adjunct treatment of their pain. Non-pharmacological treatment such as ice, elevation and activity modification was recommended as appropriate. Sissy Eugene was instructed to administer Mupirocin into the nares twice daily starting 5 days prior to surgical date. Additional instructions were given to her at the time the medication was dispensed. She was also given chlorhexidine soap to use the night before and the morning of surgery. We discussed with the patient the possible discharge scenarios. The patient will require VNA services post-op: yes, patient/caregivers were educated about their right to choose where referrals are placed patient lives in [place], no preference on VNA. Prep for Surgery Advance Directive: Does not have one (does not want to fill out) Recommend referral to Patient Financial Services: No Living arrangement: Apartment Home layout: One level, Stairs to enter w/ rails Number of stairs within home: 0 Who will provide post-op care and support: (Hal Eugene) Who will provide transportation home: (Hal) Patient's desired discharge disposition: Home Top 3 nursing choice facilities: none VNA preference: [facility] Outpatient PT preference: [facility] in [place], [place] Discharge barriers and challenges: None The patient prefers crutches to help with post-operative ambulation. A DME order has been placed. Recommendations from Dr. Garrett: Pending Note Post operative orthopaedic anti-coagulation plan: ASA 81 mg BID for 30 days Chronic anti-coagulation: no Does patient have metal allergy? No Expedited Discharge Candidate?: NO We discussed using Celebrex while in house. Upon discharge we will give the patient Naprosyn to take for 6 weeks after surgery for post-operative pain management. Any remaining questions were solicited from the patient and answered. Ms. Eugene wishes to proceed accordingly and informed consent was subsequently obtained for a right total knee replacement. I have personally evaluated the patient and agree with the above note as recorded by ODIN Matias MD 03/12/2022 documented in this encounter Plan of Treatment Scheduled Referrals Name Type Priority Associated Diagnoses Orde r Schedule Referral to Physical Therapy Outpatient Referral Routine Primary osteoarthritis of right knee Ordered: 03/12/2022 documented as of this encounter Visit Diagnoses Diagnosis Primary osteoarthritis of right knee Primary localized osteoarthrosis, lower leg documented in this encounter Administered Medications Inactive Administered Medications - up to 3 most recent administrations Medication Order MAR Action Action Date Dose Rate Site mupirocin (Bactroban) 2 % ointment 1 each 1 each, Topical (Top), 2 TIMES DAILY, First dose on Thu03/12/22 at 0900, 10 doses, Last dose on Thu03/16/22 at 2100, Apply two times daily to nares for 5 days prior to surgery Given 03/12/2022 8:40 AM EDT 1 each documented in this encounter Care Teams Orthopedic Surgeon Relationship Specialty Start Date End Date Sari Hay MD [address] [place] [address] PCP - General 05/21/11 documented as of this encounter
--- OUTSIDE RECORDS SUMMARY | 2024-04-26 15:47 | XMS_ITS | Encounter Summary ---
Author Organization [facility] Address [facility] [place] [address] Care Team Providers Care Records Technician Name Role Phone Sari Hay MD Primary Care Provider [phone] Reason for Visit * Reason Comments Pre-op Exam R TKA ([place]) Encounter Details Date Type Department Care Team (Latest Contact Info) Description 03/12/2022 9:00 AM EDT [place] [address] Ko Garrett MD [facility] [address] [place] [address] Preop examination; Primary osteoarthritis of right knee Social History [...] Time Taken Comments Blood Pressure 120/70 03/12/2022 8:38 AM EDT Pulse 61 03/12/2022 8:38 AM EDT Temperature - - Respiratory Rate - - Oxygen Saturation 100% 03/12/2022 8:38 AM EDT Inhaled Oxygen Concentration - - Weight 111.1 kg (245 lb) 03/12/2022 8:38 AM EDT Height 177.8 cm (5' 10) 03/12/2022 8:38 AM EDT Body Mass Index 35.15 03/12/2022 8:38 AM EDT documented in this encounter Progress Notes * Ko Garrett MD - 03/12/2022 9:00 AM EDT Images from the original note were not included. CC: Sissy Eugene is a 56 y.o. female with the following problems and medications that is being seen in the clinic for consultation at the request of her surgeon Dr. 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 Valdez for that. She tested positive for COVID in December, had symptoms and so she tested but she had no significant symptoms and did not need treatment or medical attention for that. She reports a negative testrecently after she noted a sore throat about a week ago. She notes the sore throat is about resolved now. Patient Active Problem List Diagnosis Code ??? Hammer toe of left foot M20.42 ? ? s/p left knee I&D, polyethylene exchange for acute PJI with Dr. Valdez 02/10/19 T84.53XA ??? Obesity, Class II, BMI 35-39.9 E66.9 ??? Closed fracture of distal end of left radius with routine healing, DOI: 09/05/2019 S52.502D ??? S/P revision of total knee, left Courtney 03/14/21 Z96.652 ??? Plantar fasciitis, right M72.2 ??? Leona sign present in right knee S83.206A ??? Primary osteoarthritis of right knee M17.11 Current Outpatient Medications Medication Sig Dispense Refill ??? acetaminophen (Tylenol) 325 mg Tablet Take 650 mg by mouth every 4 hours as needed for Pain. ??? ibuprofen (Advil) 200 mg Tablet Take 400 mg by mouth nightly as needed for Pain. ??? amoxicillin (Amoxil) 500 mg Capsule TAKE FOUR CAPSULES BY MOUTH 1 HOUR PRIOR TO DENTAL PROCEDURE Current Facility-Administered Medications Medication Dose Route Frequency Provider Last Rate Last Admin ??? mupirocin (Bactroban) 2 % ointment 1 each 1 each Topical (Top) BID Rod Valdez MD 1 eachat 03/12/22 0840 Social History Occupational History ??? Not on file Tobacco Use ??? Smoking status: Former Smoker Packs/day: 0.50 Years: 15.00 Pack years: 7.50 Types: Cigarettes Quit date: 07/18/2003 Years since quittin.6 ??? Smokeless tobacco: Never Used Vaping Use ??? Vaping Use: Never used Substance and Sexual Activity ??? Alcohol use: Yes Comment: Rarely ??? Drug use: Never ??? Sexual activity: Not on file Family History Problem Relation Age of Onset ??? Hypertension Father ??? Diabetes Father Review of Systems Constitutional: Negative for chills, diaphoresis and fever. Respiratory: Negative for cough, shortness of breath and wheezing. Cardiovascular: Negative for chest pain, palpitations and leg swelling. Gastrointestinal: Negative for abdominal pain, anal bleeding and blood in stool. Endocrine: Negative for polydipsia and polyphagia. Genitourinary: Negative for dysuria, flank pain and hematuria. Skin: Negative for pallor and rash. Allergic/Immunologic: Negative for environmental allergies and immunocompromised state. Neurological: Negative for presyncope, paresthesia, syncope and speech difficulty. Hematological: Negative for adenopathy. Does not bruise/bleed easily. Denies melena. Psychiatric/Behavioral: Negative for confusion, decreased concentration and dysphoric mood. Allergies: Allergies Allergen Reactions ??? Adhesive Itching and Rash ??? Adhesive Bandage Rash ??? Codeine Nausea Only Other reaction(s): Nausea Physical Exam: Last Set of Vitals and Range over past 24 hours: Last value Range last 24 hrs Heart Rate Heart Rate: 61 Heart Rate: [61] Blood Pressure BP: 120/70 BP: (120)/(70) SpO2 SpO2: 100 % SpO2: [100 %] Estimated body mass index is 35.15 kg/m?? as calculated from the following: Height as of this encounter: 177.8 cm (5' 10). Weight as of this encounter: 111.1 kg (245 lb). Physical Exam Constitutional: She is oriented to person, place, and time. She appears well- developed. No distress. HENT: Head: Normocephalic and atraumatic. Eyes: Right eye exhibits no discharge. Left eye exhibits no discharge. No scleral icterus. Neck: Neck supple. No JVD present. Cardiovascular: Normal rate, regular rhythm and normal heart sounds. Exam reveals no gallop and no friction rub. No murmur heard. Pulmonary/Chest: Effort normal and breath sounds normal. No stridor. No respiratory distress. She has no wheezes. She has no rales. She exhibits no spinal tenderness. Abdominal: Soft. Bowel sounds are normal. She exhibits no percussed HSM. There is no CVA tenderness. There is no rebound and no guarding. Musculoskeletal: She exhibits no edema. She had no drift with extension at right knee Ambulates without aide. Neurological: She is alert and oriented to person, place, and time. She displays no tremors at restor on intent. Skin: Skin is warm and dry. She is not diaphoretic. No pallor. Psychiatric: She has a normal mood and affect. Her behavior is normal. Judgment and thought contentnormal. Lab Results Component Value Date WBC 5.2 03/12/2022 RBC 4.96 03/12/2022 HGB 13.8 03/12/2022 HCT 42.3 03/12/2022 MCV 85.3 03/12/2022 MCH 27.8 03/12/2022 MCHC 32.6 03/12/2022 PLATELET 251 03/12/2022 RDWCV 14.2 (H) 03/12/2022 Lab Results Component Value Date NA 142 03/12/2022 K 4.4 03/12/2022 CL 106 03/12/2022 CO2 27 03/12/2022 BUN 18 03/12/2022 CREATININE 0.86 03/12/2022 GLUCOSE 95 03/12/2022 CALCIUM 9.9 03/12/2022 ESTGFR 74 03/12/2022 Lab Results Component Value Date PT 11.2 03/12/2022 INR 1.0 03/12/2022 PTT 34 03/12/2022 Estimated Creatinine Clearance: 96.2 mL/min (based on SCr of 0.86 mg/dL). Xray - OA right knee A/P 1. Preop examination 2. Primary osteoarthritis of right knee She elects to proceed with the right TKA. She is past 7 weeks since her COVID positive test and it is appropriate to proceed with elective surgery. Major Risk Factor per the Revised Cardiac Risk Index (Bold if present) - There is no history of CAD, CHF, CVA or TIA, DM2 on insulin, or a Creatinine >2 Risk diagnosis for MACE (major adverse cardiovascular event = Myocardial infarction, pulmonary edema, ventricular fibrillation, primary cardiac arrest, or complete heart block.) : Low <1% . 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 ARISCAT/CANET Score - estimates the risk of postoperative pulmonary complications as being low ~3.5%. Per the ACS NSQIP calculator I estimated the following. RECOMMENDATION for Postoperative Care: Orders per Dr. Rod Valdez documented in this encounter Plan of Treatment Not on file documented as of this encounter Visit Diagnoses Diagnosis Preop examination Preoperative examination, unspecified Primary osteoarthritis of right knee Primary localized osteoarthrosis, lower leg documented in this encounter Care Teams Records Technician Relationship Specialty Start Date End Date Sari Hay MD [facility] [address] [place] [address] PCP - General 05/21/11 documented as of this encounter
--- OUTSIDE RECORDS SUMMARY | 2024-04-26 15:47 | XMS_ITS | Encounter Summary ---
Author Organization [facility] Address [facility] [place] [address] Care Team Providers Care Soft Sugar Operator Head Name Role Phone Sari Hay MD Primary Care Provider [phone] Encounter Details Date Type Department Care Team ([facility] st Contact Info) Description 03/14/2022 11:15 AM EDT Telephone Pre Admission Testing at [address] [phone] Social History Tobacco Use Types Packs/Day Years [...] as of this encounter Progress Notes * Katherin Somers RN - 03/14/2022 11:37 AM EDT EXPOSURE: Have you been in contact with anyone suspected of or confirmed to have COVID-19 in the PAST 10 DAYS? []Yes [x]No COVID-19 SCREENING: In the past 10 days, have you had any of the following symptoms: [] Fever (subjective or documented fever) [] Chills [] Cough [] Shortness of breath or difficulty breathing [] Fatigue [] Muscle or body aches [] Headache [] New loss of taste or smell [] Sore throat [] Nausea or vomiting [] Diarrhea [x]NONE OF THE ABOVE Tested positive for Covid (within the past 6 weeks): [] Yes [x] No Upper respiratory symptoms: [] Yes [x] No Lower respiratory symptoms: [] Yes [x] No Other symptoms: n/a J&J X 1 Moderna booster x 1 OTHER SCREENING Anticipated Disposition from PACU: home Transportation Plan To and From Hospital: , Hal Current Living Situation and Caregiver Support (Name, Relationship and Level of Engagement): Lives with and son. Physical Home Barriers (number of stairs, one level living, use of ambulation aide(s), other concerns): Lives on one level; one step to get into home; no hand rail. Patient perceived Barriers to Discharge: home Total Joints: Is there a plan in place for VNA services? What is the plan and with which company?: VNA for the first couple of weeks; [facility]; [place], [place] Are you scheduled for outpatient PT? Who with and when is your first appointment? Will arrange today. [facility], [place], [place] Do you currently have a walker? If not, is there a plan in place to acquire one ?( please document who and when) Pt. Prefers to use crutches. Will see if hers are still in good shape. documented in this encounter Plan of Treatment Not on file documented as of this encounter Visit Diagnoses Not on filedocumented in this encounter Care Teams Soft Sugar Operator Head Relationship Specialty Start Date End Date Sari Hay MD [address] [place] [address] PCP - General 05/21/11 documented as of this encounter
--- OUTSIDE RECORDS SUMMARY | 2024-04-26 15:48 | XMS_ITS | Encounter Summary ---
Author Organization [facility] Address [facility] [place] [address] Care Team Providers Care Receiving Manager Name Role Phone Sari Hay MD Primary Care Provider [phone] Reason for Visit * Reason Onset Date Comments Pre Procedure Call 01/09/2021 Encounter Details Date Type Department Care Team (Late st Contact Info) Description 01/09/2021 [place] [address] Rod Valdez MD [facility] [place] [address] Pre Procedure Call Social History Tobacco Use [...] Miscellaneous Notes * Telephone Encounter - Kallie Obando - 01/09/2021 10:16 AM EDT I called and left a message for patient to call [phone] directly and schedule surgery with Dr. Valdez. documented in this encounter Plan of Treatment Not on file documented as of this encounter Visit Diagnoses Not on filedocumented in this encounter Care Teams Receiving Manager Relationship Specialty Start Date End Date Sari Hay MD [facility] [facility] [place] [address] PCP - General 05/21/11 documented as of this encounter
--- OUTSIDE RECORDS SUMMARY | 2024-04-26 15:48 | XMS_ITS | Encounter Summary ---
Author Organization [facility] Address [facility] [place] [address] Care Team Providers Care Clin Application Specialist Name Role Phone Sari Hay MD Primary Care Provider [phone] Encounter Details Date Type Department Care Team (Late st Contact Info) Description 04/11/2021 10:25 AM EDT - 04/11/2021 11:59 PM EDT Hospital Encounter XRay at [address] [place] [address] Rod Valdez MD [facility] [place] [address] Status post left knee replacement; Mechanical loosening of internal left knee prosthetic joint, subsequent encounter; Pain of left lower extremity Discharge Disposition: Home Social History [...] Sig Dispensed Refills Start Date End Date gabapentin (Neurontin) 300 mg CapsuleIndications:S /P revision of total knee, left Take 1 capsule by mouth nightly for 30 days. 30 capsule 03/29/2021 04/19/2021 aspirin EC 81 mg Tablet, Delayed Release (E.C.) Take 1 tablet by mouth 2 times daily for 30 days. 60 tablet 03/15/2021 04/14/2021 senna (Senna) 8.6 mg Tablet Take 1 tablet by mouth 2 times daily as needed for Constipation for up to 30 days. 03/15/2021 04/14/2021 polyethylene glycoL (Miralax) 17 gram Powder in Packet Take 17 g by mouth daily as needed (For constipation) for up to 30 days. 0 03/15/2021 04/14/2021 oxyCODONE (Roxicodone) 5 mg Tablet Take 1 tablet by mouth every 4 hours as needed for Pain. 30 tablet 03/15/2021 06/26/2021 naproxen sodium (ANAPROX) 220 mg Tablet Take 1 tablet by mouth 2 times daily as needed (taken with food). 03/15/2021 06/26/2021 amoxicillin (Amoxil) 500 mg Capsule TAKE FOUR CAPSULES BY MOUTH 1 HOUR PRIOR TO DENTAL PROCEDURE 11/29/2020 09/30/2022 documented as of this encounter Plan of Treatment Not on file documented as of this encounter Procedures Procedure Name Priority Date/Time Associated Diagnosis Comments XR KNEE STANDING ALIGNMENT AP LAT SKYLINE LEFT Routine 04/11/2021 10:51 AM EDT Status post left knee replacement Mechanical loosening of internal left knee prosthetic joint, subsequent encounter Pain of left lower extremity documented in this encounter Results * XR Knee Standing Alignment AP Lat [place] Left (04/11/2021 10:51 AM EDT) Anatomical Region Laterality Modality Knee Left Digital Radiogra phy Impressions 04/11/2021 2:53 PM EDT 1. ??Unchanged left total knee arthroplasty revision, with no hardware complications. 2. ??Unchanged mild osteoarthropathy of the right knee 3. ??Varus alignment of the right knee. I have personally reviewed the image(s) and the resident's interpretation and agree with the findings, Lela Henley MD at 04/11/2021 2:53 PM Thank you for letting us participate in the care of this patient. ??If you are a health care provider and have any questions regarding this report, please contact the number below. ??For patients who have questions please contact the health rn primary care that requested your imaging first. ? Electronically signed by: Lela Henley MD, [facility] ([phone]), at 04/11/2021 2:53 PM Narrative 04/11/2021 2:53 PM EDT EXAMINATION: XR KNEE STANDING ALIGNMENT AP LAT SKYLINE LEFT CLINICAL HISTORY: History of knee replacement (as entered by ordering provider in the order requisition) TECHNIQUE: Separate images of the pelvis, knees and feet were acquired in the AP projection with the patient standing. These images were stitched together to form a composite image of the pelvis and legs allowing for evaluation of lower extremity alignment in the weight bearing position. AP and sunrise views the bilateral knees, lateral view of the left knee. COMPARISON: Left knee radiograph 03/14/2021 and 09/07/2017 Standing alignment 09/12/2020 FINDINGS: Left knee: Left total knee arthroplasty revision with long tibial stem in unchanged alignment. Hardware is intact. No periprosthetic lucency or fracture. Small joint effusion with anterior joint soft tissue swelling is present. Right knee: Unchanged mild osteoarthropathy characterized by marginal osteophyte formation. Likely unchanged relatively well-preserved medial joint space due to differences in projection. Alignment: The left mechanical weightbearing axis is midline. 1.3 cm medial deviation of the right mechanical weightbearing axis Procedure Note Lela Henley MD - 04/11/2021 EXAMINATION: XR KNEE STANDING ALIGNMENT AP LAT SKYLINE LEFT CLINICAL HISTORY: History of knee replacement (as entered by orderingprovider in the order requisition) TECHNIQUE: Separate images of the pelvis, knees and feet were acquired inthe AP projection with the patient standing. These images were stitched togetherto form a composite image of the pelvis and legs allowing for evaluation oflower extremity alignment in the weight bearing position. AP and sunrise viewsthe bilateral knees, lateral view of the left knee. COMPARISON: Left knee radiograph 03/14/2021 and 09/07/2017 Standing alignment 09/12/2020 FINDINGS: Left knee: Left total knee arthroplasty revision with long tibial stem in unchanged alignment. Hardware is intact. No periprosthetic lucency or fracture.Small joint effusion with anterior joint soft tissue swelling is present. Right knee: Unchanged mild osteoarthropathy characterized by marginal osteophyteformation. Likely unchanged relatively well-preserved medial joint space due todifferences in projection. Alignment: The left mechanical weightbearing axis is midline. 1.3 cm medial deviationof the right mechanical weightbearing axis IMPRESSION 1. Unchanged left total knee arthroplasty revision, with no hardware complications. 2. Unchanged mild osteoarthropathy of the right knee 3. Varus alignment of the right knee. I have personally reviewed the image(s) and the resident's interpretationand agree with the findings, Lela Henley MD at 04/11/2021 2:53 PM Thank you for letting us participate in the care of this patient. If youare a health care provider and have any questions regarding this report,please contact the number below. For patients who have questions please contactthe health rn primary care that requested your imaging first. Electronically signed by: Lela Henley MD, [facility]([phone]), at 04/11/2021 2:53 PM Rod Valdez MD IMG DX ORDERABLES documented in this encounter Visit Diagnoses Diagnosis Status post left knee replacement Mechanical loosening of internal left knee prosthetic joint, subsequent encounter Pain of left lower extremity documented in this encounter Care Teams Clin Application Specialist Relationship Specialty Start Date End Date Srai Hay MD [address] [place] [address] PCP - General 05/21/11 documented as of this encounter
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
--- OUTSIDE RECORDS SUMMARY | 2024-04-26 15:48 | XMS_ITS | Encounter Summary ---
Author Organization [facility] Address [facility] [place] [address] Care Team Providers Care Sap Analyst Name Role Phone Sari Hay MD Primary Care Provider [phone] Reason for Visit * Reason Onset Date Comments Questions 01/03/2022 Encounter Details Date Type Department Care Team (Late st Contact Info) Description 01/03/2022 [place] [address] Rod Valdez MD [facility] DR ORTHOPAEDIC SURGERY [place] [phone] Questions Social History Tobacco Use Types Packs/Day [...] encounter Miscellaneous Notes * Telephone Encounter - Hossein Griffin - 01/07/2022 2:17 PM EDT Reach out to Yoko as a follow-up after her inquiry on 01/03/2022 with right knee pain and increasedswelling. Patient was seen in the emergency department after her call to our office. X- rays were obtained as well as labs with low suspicion of infection. Patient had a left total knee revision and still has right [place] knee. Patient states that weightbearing is okay and is utilizing crutches to aid in ambulation. 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 Patient had an injury in September 2021 which is reduced her knee flexion of her left knee to approximately 100 degrees of flexion maximum. She had been doing physical therapy until that point but has not fully recovered from this incident. Patient is scheduled to follow-up with Teressa Taylor PA-C on 01/20/2022. Until that time she intends to utilize the crutches as needed and alert us any changes in her left knee if they were to arise. I advised on conservative pain management with [facility]. Patient appreciates the call and follow-up. All questions and concerns were answered at this time. * Telephone Encounter - Cierra House - 01/03/2022 8:16 AM EDT Who is calling: Yoko Was this a new injury? yes Have you had Surgery? yes If so when? Who was the Surgeon? Courtney What is the question: Yoko reaches out today with concerns of pain and swelling in the right knee. Yoko states that she has been using crutches to walk with to help relieve the right knee however she had a left TKA on03/14/21 and that knee is now starting to swell and become painful. Yoko is currently scheduled for 01/20/22 to have her right knee evaluated however given her history of infections she is concerned w aiting this long. I offered her sooner appointments which she declined due to her schedule. Yoko is requesting medical advise for pain management, and if she needs to be seen sooner. Best number to reach the caller: [phone] OK to leave detailed VM documented in this encounter Plan of Treatment Not on file documented as of this encounter Visit Diagnoses Not on filedocumented in this encounter Care Teams Sap Analyst Relationship Specialty Start Date End Date Sari Hay MD [address] [place] [address] PCP - General 05/21/11 documented as of this encounter
--- OUTSIDE RECORDS SUMMARY | 2024-04-26 15:48 | XMS_ITS | Encounter Summary ---
[place] [address] Care Team Providers Care Licensing Worker Name Role Phone Sari Hay MD Primary Care Provider [phone] Reason for Visit * Reason Onset Date Comments Medication Refill 04/19/2021 Encounter Details Date Type Department Care Team (Late st Contact Info) Description 04/19/2021 [place] [address] Frankie Sun, ANALY S/P revision of total knee, left Social History Tobacco Use Types Packs/Day Years [...] encounter Miscellaneous Notes * Telephone Encounter - Frankie Emerson RMA - 04/19/2021 2:20 PM EDT Medication Refill Request Surgery/Injury/Provider: 02/10/19 ([facility]) LEFT TKA revision, joint infection 03/14/21 ([facility]) LEFT TKA revision, aseptic loosening. Femur and patella retained, revised tibial component Medication being requested: Gabapentin 300mg Last refill: 03/29/21, ran out sooner because she was told it was ok to take 2 nightly. Seen within 30 days (if no, than when): 04/11/21 Follow Up: 1 year How is this medication being used currently: 2 tabs nightly Other pain medications used and how: Tylenol yes Medication Taper Plan: At patient's last office visit was told it was ok to take 2 tabs nightly fora week or so and then taper back down to 1 tab nightly. Requested Prescription to be sent electronically to [facility] [place] [place] (location). Prescription prepped and pended for Marissa Taylor (provider) review. The patient knows how to contact orthopaedics if any further questions or concerns occur. documented in this encounter Plan of Treatment Not on file documented as of this encounter Visit Diagnoses Diagnosis S/P revision of total knee, left documented in this encounter Care Teams Licensing Worker Relationship Specialty Start Date End Date Sari Hay MD [address] [place] [address] PCP - General 05/21/11 documented as of this encounter
--- OUTSIDE RECORDS SUMMARY | 2024-04-26 15:48 | XMS_ITS | Encounter Summary ---
Author Organization [facility] [place] [address] Care Team Providers Care Digital Cartographer Name Role Phone Sari Hay MD Primary Care Provider [phone] Reason for Visit * Reason Comments Joint Swelling R knee Encounter Details Date Type Department Care Team (Late st Contact Info) Description 01/03/2022 6:01 PM EDT - 01/03/2022 8:16 PM EDT [place] [id number] Acute pain of left knee Discharge Disposition: Home Social History Tobacco [...] Sign Reading Time Taken Comments Blood Pressure 154/94 01/03/2022 8:08 PM EDT notified aris flores Pulse 61 01/03/2022 8:08 PM EDT Temperature 36.7 ??C (98 ??F) 01/03/2022 4:4 9 PM EDT Respiratory Rate - - Oxygen Saturation 99% 01/03/2022 8:0 8 PM EDT Inhaled Oxygen Concentration - - Weight - - Height - - Body Mass Index - - documented in this encounter Discharge Instructions * Discharge Instructions* Michael Reed PA - 01/03/2022 8:02 PM EDT You were seen today for left knee pain and swelling. Please do the following to help your symptoms improve: 1. Follow-up with your orthopedic provider for recheck of symptoms within 10-14 days. 2. Rest the affected area for the next 1-2 days. After that you may begin modified activities untilyou feel better. 3. Apply ice for 20 min. every 2 hours for the next 2-3 days. Use an clemente wrap to provide compression and comfort. 4. Take ibuprofen and acetaminophen (tylenol) alternating every 4 hours as needed for pain. Take 600-800mg of ibuprofen consistently on a schedule every 8 hours for the next 7 days. After that, take as needed. 5. Return to the emergency department for any worsening or changing symptoms such as severe/worsening pain, numbness/tingling in your extremities, severe swelling, or inability to move your limb. * Attachments The following attachments cannot be sent through Care Everywhere. * Knee Pain or Injury (Irish) documented in this encounter Medications at Time of Discharge Medication Sig Dispensed Refills Start Date End Date ibuprofen (Advil) 200 mg Tablet Take 400 mg by mouth nightly as needed for Pain. amoxicillin (Amoxil) 500 mg Capsule TAKE FOUR CAPSULES BY MOUTH 1 HOUR PRIOR TO DENTAL PROCEDURE 11/29/2020 09/30/2022 documented as of this encounter ED Notes * Michael Reed PA - 01/03/2022 6:57 PM EDT ED Provider Note HPI: Sissy Eugene is a 56 y.o. female with hx of L knee TKA s/p hardware replacement d/t infection who presents to the Emergency Department concerns for right knee pain and swelling for the last 5 weeks. Patient reports gradually worsening right knee swelling and pain. No preceding trauma or injury.Has tried intermittent ibuprofen/tylenol with limited relief. Sent by ortho for consideration of knee infection Review of Systems Pertinent positives and negatives are included in the HPI, otherwise at least ten systems were reviewed and negative. Past Medical and Surgical Histories, Social History, Medications, Allergies were reviewed in the chart. Vitals: ED Triage Vitals [01/03/22 1649] BP: (!) 153/105 Heart Rate: 64 Resp: n/a Temp: 36.7 ??C (98 ??F) Temp src: Temporal SpO2: 100 % O2 Device: RA O2 Flow Rate (L/min): n/a Physical Exam Vitals and nursing note reviewed. Constitutional: General: She is not in acute distress. Appearance: She is well-developed. She is not diaphoretic. HENT: Head: Normocephalic and atraumatic. Nose: Nose normal. Mouth/Throat: Mouth: Mucous membranes are moist. Pharynx: Oropharynx is clear. No oropharyngeal exudate. Eyes: General: Right eye: No discharge. Left eye: No discharge. Conjunctiva/sclera: Conjunctivae normal. Pupils: Pupils are equal, round, and reactive to light. Cardiovascular: Rate and Rhythm: Normal rate and regular rhythm. Pulses: Normal pulses. Heart sounds: Normal heart sounds. No murmur heard. Comments: 2+ right DP and PT pulses Pulmonary: Effort: Pulmonary effort is normal. No respiratory distress. Breath sounds: Normal breath sounds. No wheezing or rales. Musculoskeletal: Comments: Diffuse swelling and tenderness to palpation of the right knee. No tenderness palpation of the left knee. Slightly decreased range of motion of the right knee. 5-5 strength in flexion extension of the right knee and ankle as well as left knee. No pain with passive range of motion of the right knee. Skin: General: Skin is warm and dry. Findings: No rash. Neurological: General: No focal deficit present. Mental Status: She is alert and oriented to person, place, and time. Sensory: No sensory deficit. Motor: No weakness. ED Course: I have reviewed labs and imaging, images and available reports, and they are significant for: X-raythe right knee shows no acute fracture or dislocation. Does show some arthritis. This could potentially contribute to her pain and swelling. Lab work is relatively unremarkable. Inflammatory markers are not significantly elevated. No leukocytosis. No other significant anemia or electrolyte or kidney abnormalities. Given patient's ease of range of motion and minimal tenderness with gradual onset pain and swelling, septic arthritis is less likely. Potential meniscal injury, osteoarthritis, or ligamentous injury. Patient has orthopedic follow-up. She was encouraged to use Clemente wrap. Ibuprofen andTylenol encouraged. Encouraged to return the ED for any worsening or changing symptoms. Last 3 wbc, hgb, hct plt Recent Labs 01/03/22 1740 WBC 9.1 HGB 13.3 HCT 40.7 PLATELET 281 Last 3 Lytes Recent Labs 01/03/221739 NA 141 K 4.0 CL 103 CO2 27 BUN 19* CREATININE 0.90 GLUCOSE 84 Last CRP, SED RATE Recent Labs 01/03/22 1740 CRP 5.9* SEDRATE 23 XR Knee 1-2 Views Right (Generic) Final Result Degenerative changes as above. No acute fracture or dislocation. Thank you for letting us participate in the care of this patient. If you are a health care provider and have any questions regarding this report, please contact the number below. For patients who have questions please contact the health rn progressive care that requested your imaging first. Electronically signed by: Uziel Amador MD, [facility] ([phone]), at 01/03/2022 5:49 PM Procedures Assessment and Plan: 56 y.o. female with R knee pain F/u with ortho Ibuprofen/tylenol CLEMENTE wrap Crutches for partial weight bearing as needed The visit findings, diagnosis, and care plan were discussed with the patient. The diagnosis and care plans discussions were outlined in the discharge instructions. The patient expressed understanding of the details of the visit, the return precautions and that she should return to the ER at any time for worsening symptoms, new symptoms, or other concerns. she agrees with thefollow- up plan. Michael Reed PA 01/03/222004 * Gabriele Rader PA - 01/03/2022 4:49 PM EDT 56 y/o F presents with right knee pain and swelling. Pain has been there for 5 weeks but recently worse. Has a history of an infection in the left knee which was on a total knee replacement. Called ortho today and they recommended she come to the ED for evaluation. She was able to walk on it today but yesterday needed crutches. She is concerned the knee is infected. Basic labs, inflammatory markers, and X-ray ordered Gabriele Rader PA 01/03/22 4294 documented in this encounter Miscellaneous Notes * ED Triage - Jazmin Lugo, RN - 01/03/2022 4:53 PM EDT HPI (Adult) Stated Reason for Visit: My R knee started swelling 5 weeks ago with no trauma but it is worsening and sometimes need to use crutches. Ortho refered me here to r/o an infection because I had a L TKR which had an infection. History Obtained From: patient Pt. Here with R knee pain and swelling worsening over the last 4-5 weeks. documented in this encounter Plan of Treatment Not on file documented as of this encounter Procedures Procedure Name Priority Date/Time Associated Diagnosis Comments HC C-REACTIVE PROTEIN STAT 01/03/2022 5:40 PM EDT HEMOGRAM STAT 01/03/2022 5:40 PM EDT DIFFERENTIAL, AUTOMATED STAT 01/03/2022 5:40 PM EDT HC ESR-SEDIMENTATION RATE, BLOOD STAT 01/03/2022 5:40 PM EDT HC CBC,PLT & AUTO DIFF STAT 01/03/2022 5:40 PM EDT BASIC METABOLIC PANEL (NON-FASTING) STAT 01/03/2022 5:40 PM EDT XR KNEE AP & LAT RIGHT STAT 01/03/2022 5:28 PM EDT documented in this encounter Results * Differential, Automated (01/03/2022 5:40 PM EDT) Neutrophils % 57.8 % [facility] Neutr Abs (ANC) 5.28 1.70 - 6.10 x10(3)/mcL [facility] Lymphocytes % 29.9 % [facility] Lymphocytes Abs 2.7 0.9 - 3.2 x10(3)/[facility] Monocytes % 9.2 % [facility] Monocyte Abs 0.8 0.3 - 0.9 x10(3)/[facility] Eosinophils % 1.9 % [facility] Eosinophils Abs 0.2 0.0 - 0.4 x10(3)/[facility] Basophils % 1.0 % [facility] Basophils Abs 0.1 0.0 - 0.1 x10(3)/[facility] Immature Gran % 0.20 % [facility] Comment: Immature granulocytes(IG's)percentage and absolute count will include metamyelocytes, myelocytes, and promyelocytes. Blood smears from CBCs yielding IG's will be scanned manually for concordance. If this scan disagrees with the automated IG or if promyelocytes are noted, a manual differential will be performed. Lorrie Gran Abs 0.02 0.00 - 0.04 x10(3)/[facility] Blood 01/03/2022 5:40 PM EDT 01/03/2022 5:50 PM EDT Narrative Resulting Agency Comment Spec In Lab Gabriele ANDERSEN HEMATOLOGY ORDERABLE S [facility] [place] [address] * Hemogram (01/03/2022 5:40 PM EDT) WBC 9.1 4.0 - 9.5 x10(3)/[facility] RBC 4.88 4.00 - 5.21 x10(6)/[facility] Hemoglobin 13.3 11.7 - 15.5 g/dL [facility] Hematocrit 40.7 35.7 - 45.8 % [facility] MCV 83.4 82.6 - 94.4 fL [facility] MCH 27.3 27.1 - 32.0 pg [facility] MCHC 32.7 31.7 - 35.0 g/dL [facility] Platelets 281 145 - 357 x10(3)/[facility] RDWSD 42.1 37.0 - 46.0 [facility] RDWCV 13.8 11.5 - 14.1 % [facility] MPV 9.9 7.6 - 12.9 [facility] nRBC % Auto 0.0 % [facility] nRBC Abs Auto 0.000 0.000 - 0.000 x10(3)/[facility] Blood 01/03/2022 5:40 PM EDT 01/03/2022 5:50 PM EDT Narrative Resulting Agency Comment Spec In Lab Gabriele Rader PA HEMATOLOGY ORDERABLE S [facility] [place] [address] * (ABNORMAL) CRP, acute inflammation (01/03/2022 5:40 PM EDT) CRP 5.9(H) <=4.9 mg/L [facility] Blood 01/03/2022 5:40 PM EDT 01/03/2022 5:50 PM EDT Narrative Resulting Agency Comment Spec In Lab Sharmaine Garcia DO CHEMISTRY O RDERABLES [facility] [place] [address] * Sedimentation rate (01/03/2022 5:40 PM EDT) Sed Rate 23 2 - 39 mm/hr [facility] Comment: Effective September 14, 2019 new capillary photometric technology has resulted in a change in reference ranges. It is recommended that each ESR result be reviewed with its own age appropriate reference range. Blood 01/03/2022 5:40 PM EDT 01/03/2022 5:50 PM EDT Narrative Resulting Agency Comment Spec In Lab Sharmaine Baxter Kaden Garcia DO HEMATOLOGY ORDERABLES [facility] [place] [address] * (ABNORMAL) Basic Metabolic Panel (non-fasting) (01/03/2022 5:40 PM EDT) Glucose Lvl 84 65 - 199 mg/dL [facility] Comment:Diabetes: >=200 mg/d L plus symptoms BUN 19(H) 8 - 18 mg/dL [facility] Creatinine 0.90 0.70 - 1.20 mg/dL [facility] Sodium 141 135 - 145 mmol/L [facility] Potassium 4.0 3.5 - 5.0 mmol/L [facility] Comment: Please note: ??Patients with WBC >100,000 may have falsely elevated Potassium levels. ??For accurate Potassium quantification in these patients send serum separator tube (gold top) for subsequent determinations. ??Contact the Clinical Chemistry Laboratory if there are any questions. Chloride 103 98 - 107 mmol/L [facility] CO2 27 22 - 31 mmol/L [facility] Anion Gap 11 5 - 15 mmol/L [facility] Calcium 9.6 8.5 - 10.5 mg/dL [facility] Estimated GFR 70 >=60 mL/min/1. 73 m?? [facility] Comment: This patient? s estimated glomerular filtration rate (eGFR) is between 70 mL/min/1.73 m2 (patients with less muscle mass) and 82 mL/min/1.73 m2 (patients with more muscle mass) [...] and symptoms in addition to eGFR. Blood 01/03/2022 5:40 PM EDT 01/03/2022 5:50 PM EDT Narrative Resulting Agency Comment Spec In Lab Sharmaine Garcia DO CHEMISTRY O RDERABLES [facility] [place] [address] * XR Knee 1-2 Views Right (Generic) (01/03/2022 5:28 PM EDT) Anatomical Region Laterality Modality Knee Right Digital Radiogra phy Impressions 01/03/2022 5:49 PM EDT Degenerative changes as above. No acute fracture or dislocation. Thank you for letting us participate in the care of this patient. ??If you are a health care provider and have any questions regarding this report, please contact the number below. ??For patients who have questions please contact the health rn progressive care that requested your imaging first. ? Narrative 01/03/2022 5:49 PM EDT EXAMINATION: XR KNEE 1-2 VIEWS RIGHT (GENERIC) CLINICAL HISTORY: right knee swelling and pain TECHNIQUE: 2 views RIGHT knee COMPARISON: None FINDINGS: Maintained joint spaces. Marginal productive changes and tibial eminence osteophytes. No effusion. Procedure Note Uziel Amador MD - 01/03/2022 EXAMINATION: XR KNEE 1-2 VIEWS RIGHT (GENERIC) CLINICAL HISTORY: right knee swelling and pain TECHNIQUE: 2 views RIGHT knee COMPARISON: None FINDINGS: Maintained joint spaces. Marginal productive changes and tibial eminence osteophytes. No effusion. IMPRESSION Degenerative changes as above. No acute fracture or dislocation. Thank you for letting us participate in the care of this patient. If youare a health care provider and have any questions regarding this report,please contact the number below. For patients who have questions please contactthe health rn progressive care that requested your imaging first. Sharmaine Garcai DO IMG DX CHERY MARTINEZ documented in this encounter Visit Diagnoses Diagnosis Acute pain of left knee documented in this encounter Care Teams Digital Cartographer Relationship Specialty Start Date End Date Sari Hay MD [facility] [address] [place] [address] PCP - General 05/21/11 documented as of this encounter
--- OUTSIDE RECORDS SUMMARY | 2024-04-26 15:48 | XMS_ITS | Encounter Summary ---
Author Organization [facility] Address [facility] [place] [address] Care Team Providers Care Spring Bender Name Role Phone Sari Hay MD Primary Care Provider Encounter Details Date Type Department Care Team (Late st Contact Info) Description 03/15/2021 [place]phone [place] [phone] Saud Barajas MD [facility] DR [place] [address] Social History Tobacco Use Types Packs/Day Years [...] as of this encounter Progress Notes * Saud Barajas - 03/15/2021 3:38 PM EDT [facility] Post-Procedure Assessment Spoke to patient via telephone. Peripheral nerve block resolved appropriately. Some residual numbness to lateral knee and going down below the knee along the lateral lower extremity. Patient otherwise feels well. Based on the distribution of the numbness, it is unlikely that adductor canal block was the contributor (saphenous nerve distribution, medial leg). No weakness.Tolerating PO pain meds appropriately. It is not uncommon to experience that post knee surgery (potentially lateral sural cutaneous nerve). Patient is instructed to monitor her numbness for the time being, and notify the orthopedic office if it remains after a week and or if she is concerned. Saud Barajas [facility] Fellow #[id number] documented in this encounter Plan of Treatment Not on file documented as of this encounter Visit Diagnoses Not on filedocumented in this encounter Care Teams Spring Bender Relationship Specialty Start Date End Date Sari Hay MD [address] [place] [address] PCP - General 05/21/11 documented as of this encounter
--- OUTSIDE RECORDS SUMMARY | 2024-04-26 15:48 | XMS_ITS | Encounter Summary ---
Author Organization [facility] Address [facility] [place] [address] Care Team Providers Care Any Commodity Buyer Name Role Phone Sari Hay MD Primary Care Provider [phone] Reason for Visit * Reason Onset Date Comments Fall 10/08/2021 Encounter Details Date Type Department Care Team (Late st Contact Info) Description 10/08/2021 [place] [phone] Rod Valdez MD [facility] [place] [address] Fall Social History Tobacco Use Types Packs/Day Years [...] encounter Miscellaneous Notes * Telephone Encounter - Amada Yarbrough - 10/08/2021 11:00 AM EST Called and spoke to the pt, Ana Rosa, about the fall she had on 09/10/2021. She origionally spoke with Hossein Griffin ATC, on 09/10/21. States that she slipped on ice, which kicked her R leg off the ground completely. Twisted and fell on her L knee. She is s/p L TKA DOS 02/20/2019. Since her fall on 09/10/21 she reports constant swelling about the joint line. States there has been a pocket of fluid underneath the patella on the medial and lateral sides. States that the fluid feels like it is sitting horizontally. States that she has had some persistent numbness, so isn't entirely sure how touch feels. Ana Rosa has been unable to attend PT due to other health related concerns. However, states prior to her fall, she was able to flex the knee to ~130deg. Since the fall, she can only flex to ~90deg w/ a hard stop and pain. She has been able to FWB and ambulate w/o assistance since the day following herfall. Ana Rosa is stating that her knees feel similar bilaterally. However her L knee used to feel much moresecure and stable. She denies any abnormal sounds or sensations, beyond the clunking that was present prior to her fall. She is looking for some reassurance, and would like to be seen for an evaluation. She feels as though since it has been almost a month since her fall, there hasn't been enough improvement, and would like to be seen. I informed her I could reach out to the scheduling staff, but there would be no guarantees she could be seen with her time constraints. She expressed verbal understanding of all this. She will wait to hear from our scheduling staff. All of her questions and concerns were addressed. She will call back if anything changes. Leandro MarshallEd, LAT, ATC Information Technology Account Manager [facility] * Telephone Encounter - BrittaniAbby hernández - 10/08/2021 10:11 AM EST Who is calling: Ana Rosa Was this a new injury? yes Have you had Surgery?yes If so when?LEFT TKA 02/10/19 Who was the Surgeon? Dr. Valdez What is the question: Patient fell and twisted her left knee 3 weeks ago and is concerned that she has caused damage to her knee or hardware. The left knee is swollen, painful, stiff and feels like I stretched the tendons. Best number to reach the caller: [phone] documented in this encounter Plan of Treatment Not on file documented as of this encounter Visit Diagnoses Not on filedocumented in this encounter Care Teams Any Commodity Buyer Relationship Specialty Start Date End Date Sari Hay MD [facility] [address] [facility] [address] [place] [address] PCP - General 05/21/11 documented as of this encounter
--- OUTSIDE RECORDS SUMMARY | 2024-04-26 15:48 | XMS_ITS | Encounter Summary ---
Author Organization [facility] Address [facility] [place] [address] Care Team Providers Care Unemployment Specialist Name Role Phone Sari Hay MD Primary Care Provider [phone] Reason for Visit * Auth/Cert Specialty Diagnoses / Procedures Referred By Emmanuel t Referred To Contact Diagnoses Presence of left artificial knee joint Aseptic Loosening Left TKA Procedures PRO REVISE KNEE JOINT REPLACE, ALL PARTS TOTAL KNEE REVISION ARTHROPLASTY, COMPLETE (WRVU 27.11) Referral ID Status Reason Start Date Expiration Date Visits Re quested Visits Authorized [id number] 1 1 Encounter Details Date Type Department Care Team (Late st Contact Info) Description 03/14/2021 10:09 AM EDT - 03/15/2021 2:05 PM EDT Hospital Encounter 3 [place] [address] Rod Valdez MD [facility] [place] [address] S/P revision of total knee, left [place] 03/14/21 Discharge Disposition: Home with VNA Social History Tobacco Use Types Packs/Day Years [...] Sign Reading Time Taken Comments Blood Pressure 106/61 03/15/2021 11:22 AM EDT Pulse 56 03/15/2021 11:15 AM EDT Temperature 36.5 ??C (97.7 ??F) 03/15/2021 11:15 AM E DT Respiratory Rate 16 03/15/2021 11:15 AM EDT Oxygen Saturation 96% 03/15/2021 11:22 AM EDT Inhaled Oxygen Concentration - - Weight 102.5 kg (226 lb) 03/15/2021 11:15 AM EDT Height 177.8 cm (5' 10) 03/15/2021 11:15 AM EDT Body Mass Index 32.43 03/15/2021 11:15 AM EDT documented in this encounter Discharge Summaries * Geoffrey Paredes PA - 03/15/2021 12:23 PM EDT Discharge Summary Patient Name: Sissy Eugene Patient Age: 55 y.o. Language: Emirati Race: White Ethnicity: Not nor Admit date: 03/14/2021 Discharge date and time: 03/15/2021 Attending Physician: Rod Valdez MD Discharge Physician: Rod Valdez MD Follow-up Recommendations for Providers: See discharge instructions for additional details. Future Appointments Date Time Provider Department Center 04/11/2021 10:30 AM [facility] ROOM 1 Xray [facility] Rad 04/11/2021 11:30 AM Teressa Taylor PA [facility] ORTH [address] [facility] Inpatient Provider Contact Information: Rod Valdez MD Orthopedics: [phone] After hours and weekends, call [facility] Coke Still Cleaner, , and have the Orthopedic resident paged. Discharge Diagnoses (Hospital Problems) and Secondary Diagnoses (Chronic Problems): Active Hospital Problems Diagnosis ??? S/P revision of total knee, left [place] 03/14/21 Resolved Hospital Problems No resolved problems to display. Active Non-Hospital Problems Diagnosis ??? Closed fracture of distal end of left radius with routine healing, DOI: 09/05/2019 ??? Obesity, Class II, BMI 35-39.9 ? ? s/p left knee I&D, polyethylene exchange for acute PJI with Dr. Valdez 02/10/19 ??? Hammer toe of left foot Operations/Major Procedures: 03/14/2021 Surgeon(s) and Role: * Rod Valdez MD - Primary * Kenneth De Leon MD - Resident Procedure(s): TOTAL KNEE REVISION ARTHROPLASTY, ONE COMPONENT (WRVU 21.12) History of Presentation: Sissy Eugene is a 55 y.o. female who underwent a left TKA on 09/29/17 for post-traumatic osteoarthritis. She had some persistent medial pain and stiffness and returned for arthroscopic synovectomy on 01/18/19 and developed a subsequent acute periprosthetic infection, undergoing a DAIR procedure on 02/10/19 and treated with 6 weeks of IV antibiotics followed by 6 months of oral. She had no evidence of any return of infection but over the past year began having start up pain along her joint line. A bone scan was done in August of 2020 that showed increased uptake along the tibial tray. Inflammatory markers were normal. Given her consistent start up pain and abnormal bone scan, she was offered a left knee REvision TKA. Risks of rev TKA were discussed including infection, fracture, blood clots, instability, and medical complications including . Despite the risks discussed she wishedto proceed with a left rev TKA and informed consent was signed in clinic. Hospital Course: The patient was admitted via Same Day Surgery for the above operation. DVT prophylaxis: Aspirin 81 mg BID x 30 days. Patient began rehab on POD#1 w/ weight bearing as tolerated of left leg remembering to use protection at all times for balance and protection. The patient was voiding spontaneously. Wound inspected POD#1 and found to be benign. Patient did not have a bowel movement prior to discharge but was passing flatus . By POD#1 the patient was medically stable and was cleared for safe discharge to home. Vital Signs at Discharge: Weight: Wt Readings from Last 1 Encounters: 03/15/21 102.5 kg (226 lb) Height: Ht Readings from Last 1 Encounters: 03/15/21 177.8 cm (5' 10) HC: HC Readings from Last 1 Encounters: No data found for HC BMI: Body mass index is 32.43 kg/m??. Last value Range last 24 hrs Temperature Temp: 36.5 ??C (97.7 ??F) Temp: [36.1 ??C (97 ??F)-36.9 ??C (98.4 ??F)] Heart Rate Heart Rate: 56 Heart Rate: [39-60] Blood Pressure BP: 106/61 BP: (105-144)/(57-91) Respiratory Rate Resp: 16 Resp: [8-20] SpO2 SpO2: 96 % SpO2: [90 %-100 %] Art BP BP (Arterial Line): -- Functional and Cognitive Status: Patient mobilizing with use of crutches, cognitively intact at baseline mental status at time of discharge. Important Lab Data: Last 3 wbc, hgb, hct plt Recent Labs 03/15/21 02203/05/21 1439 09/03/20 1242 WBC 12.6* 6.9 7.0 HGB 11.6* 13.2 14.5 HCT 35.2* 40.3 44.0 PLATELET 237 249 234 Last 3 Lytes Recent Labs 03/15/21 0221 03/05/21 1439 NA 138 143 K 4.2 4.8 CL 105 106 CO2 24 28 BUN 14 19* CREATININE 0.76 0.78 Studies: SCAN DOC: TELEMETRY STRIPS Result Date: 03/14/2021 Ordered by an unspecified provider. XR Knee 1-2 Views Left (Generic) Result Date: 03/15/2021 EXAMINATION: XR KNEE 1-2 VIEWS LEFT (GENERIC) CLINICAL HISTORY: s/p revision tka, please include entire tibial stem in XR TECHNIQUE: 2 views LEFT knee COMPARISON: September 12, 2020 FINDINGS: A knee prosthesis is demonstrated in near anatomic position and alignment. A long tibial stem is demonstrated. No other significant osseous finding is identified. Left knee arthroplasty without complications. Thank you for letting us participate in the care of this patient. If you are a health care provider and have any questions regarding this report, please contact the number below. For patients who have questions please contact the health home care scheduler that requested your imaging first. Electronically signed by: Markos Han MD, [facility]([phone]), at 03/15/2021 8:17 AM Pending Studies and Lab Data at Discharge: * No orders in the log * Transfusions: No Discharge Conditions/Prognosis: Stable, awake, and alert. Mobilizing as noted above, pain controlled on oral medications. Discharge to: Home with VNA PT Updated Allergies/ADRs: Allergies Allergen Reactions ??? Adhesive Itching and Rash ??? Adhesive Bandage Rash ??? Codeine Nausea Only Other reaction(s): Nausea Immunizations Given this Hospitalization: There is no immunization history on file for this patient. Discharge Medications: Your Medications New Medications Dose Details aspirin EC 81 mg Tbec Take 1 tablet by mouth 2 times daily for 30 days. 81 mg Quantity: 60 tablet Refills: 0 gabapentin 300 mg Cap Commonly known as: Neurontin Take 1 capsule by mouth nightly for 30 days. 300 mg Quantity: 30 capsule Refills: 0 oxyCODONE 5 mg Tab Commonly known as: Roxicodone Take 1 tablet by mouth every 4 hours as needed for Pain. 5 mg Quantity: 30 tablet Refills: 0 polyethylene glycoL 17 gram Pwpk Commonly known as: Miralax Take 17 g by mouth daily as needed (For constipation) for up to 30 days. 17 g Refills: 0 senna 8.6 mg Tab Commonly known as: Senna Take 1 tablet by mouth 2 times daily as needed for Constipation for up to 30 days. 1 tablet Refills: 0 Continued medications with new dosing Dose Details acetaminophen 500 mg Tab Commonly known as: Tylenol Take 2 tablets by mouth every 8 hours for 10 days. What changed: ?? medication strength ?? how much to take ?? when to take this ?? reasons to take this 1,000 mg Refills: 0 naproxen sodium 220 mg Tab Commonly known as: ANAPROX Take 1 tablet by mouth 2 times daily as needed (taken with food). What changed: ?? when to take this ?? reasons to take this 220 mg Refills: 0 Continued medications, unchanged Dose Details amoxicillin 500 mg Cap Commonly known as: Amoxil TAKE FOUR CAPSULES BY MOUTH 1 HOUR PRIOR TO DENTAL PROCEDURE Refills: 0 STOPPED Medications ampicillin 500 mg Cap Commonly known as: PRINCIPEN Smoking Status at Discharge: Social History Tobacco Use Smoking Status Former Smoker ??? Packs/day: 0.50 ??? Years: 15.00 ??? Pack years: 7.50 ??? Types: Cigarettes ??? Quit date: 07/18/2003 ??? Years since quittin.6 Smokeless Tobacco Never Used Instructions Given to Patient at Discharge: Patient Instructions Activity: 1. Your weight-bearing status is - weight bearing as tolerated of left leg. 2. Remember to use a walker [...] days after surgery. After your dose on 04/13/2021 stop the Aspirin, unless you are told otherwise by your Orthopedic surgeon. Take this medication with food or large amounts(240 mL) of water or milk to minimize [...] bowel movement. You can also take an ssxj-bxa-qfdhkdm medication, Miralax if needed to combat constipation. 2. If you need a renewal on your narcotic pain medication, you need to give the Orthopedic clinic enough time to process your request. This can take up to three days, so plan accordingly. 3. Continue acetaminophen (Tylenol) 1,000mg every 8 hours around the clock until 03/24/21 (for ten days after your surgery). This can be effective in controlling pain along with your other medications. After that you can take Tylenol as needed per package insert. Do not take more than 3,000mg of acetaminophen in a 24 hour period. 4. You have been discharged on a short acting narcotic. You will be on this medication for a limited period of time only. Take the smallest dose possible to control your pain. As your pain improves take smaller, less frequent doses. You may break the tablet to achieve a smaller dose. 5. You are being discharged with gabapentin 300mg orally in the evening for 30 days. Please take asprescribed and follow-up with your orthopaedic provider regarding discontinuation. Shower (internal sutures): 1. You can shower [...] operative dressing 7 days after your surgery (03/21/2021). When it is removed you can leave the incision open to air or cover it with a light dressing. Some patients have an additional item called Jasmina on their skin. If you have this it will appear as a mesh dressing directly over the incision. Please leave this in place until your follow up with orthopedics. 3. If you have lots of drainage when you get home (and it is before 03/21/2021), remove the operative dressing and replace it with dry sterile gauze. Continue with daily dressing changes (and as needed) until the drainage stops, then remove the dressing and leave the incision open to air or lightly covered. Misc: Remember that ICE and elevation are very important after surgery to help decrease swelling and control pain. Use ICE for 20-30 minutes at a time and keep your leg elevated as much as possible. Call your doctor ([phone]) if you develop: 1. Fever greater than 100.5 2. Severe nausea or vomiting 3. Increasing pain that is not controlled by pain medications 4. Increasing redness, swelling, or drainage from incisions 5. Change in sensation FOLLOW-UP APPOINTMENTS: 1. You will have follow-up appointments at [facility] as indicated below in Future Appointment and Orders. 2. You will need to have x-rays prior to your follow-up appointment on 04/11/2021. Please come to Radiology, desk , 1 hour BEFORE that appointment for those x-rays. Future Appointments Date Time Provider Department Center 04/11/2021 10:30 AM [facility] DX ROOM 1 Xray [facility] Rad 04/11/2021 11:30 AM Teressa Taylor PA [facility] ORTH [address] [place] [address] If you have questions or concerns: Thursday through Thursday, 8 AM - 5 PM, please call Dr. Rod Valdez MD's office at . If it is after 5 PM, the weekend, or holidays, please call and ask to speak with theOrthopedic resident on-call. General Instructions None Future Appointments and Orders Future Appointments and Orders Future Appointments Provider Department Dept Phone 04/11/2021 10:30 AM [facility] DX ROOM [address] [facility] Arrive at: [facility] Machinist Area [phone] Please go to [facility]in[facility] Area 3T ([place] Location). 04/11/2021 11:30 AM Teressa Taylor PA Orthopaedics at [facility] Arrive at: [facility]inist Area 3D [phone] Future Orders Complete By Expires Referral to Home Health - at DISCHARGE [SQL8446 CPT(R)] As directed Process Instructions: Scheduling Instructions: Comments: DOCUMENTATION FOR VNA SERVICES (INCLUDING THOSE PATIENTS WITH MEDICARE COVERAGE REQUIRING HOME VNA SERVICES AND/OR HOSPICE SERVICES) Sissypradeep Eugene Discharge to own home: [address] [facility] [address] There are no phone numbers on file. Telephone Information: Client Support Associate's Name: self In discussion with the attending physician, it is certified that this patient is under their care and that they, or a nurse practitioner, clinical nurse specialist or physician's assistant spa director who is working directly with them, had a face to face encounter that meets the physician face to face encounter requirements with this patient on 03/15/2021 The encounter with the patient was in whole, or in part, for the following medical condition, whichis the primary reason for home health care services: In discussion with the provider, it is certified that, based on their findings, the following services are medically necessary for home health services. To provide the following care/treatments with the clinical findings supporting the need for services as follows: Home Health Agency: [facility] PHONE: [phone] FAX: [phone] Home care orders for [facility] w PT services only. [facility](SN) eval if indicated on admission visit 1. Assess wound, pain management, medication effectiveness and management, elimination, nutrition 2.Do not lift the edge of the mepilex dressing to observe the incision; this dressing needs to stayin place until 7 days after surgery. 3. Continue PT rehab for balance, endurance, joint mobility, ROM, Strength, LOREN protocol FOR MEDICARE ONLY: (please delete this section if not Medicare) In discussion with the attending physician, it is certified that the clinical findings support thatthis patient is homebound ;i.e. absences from home require considerable and taxing effort Due to: s/p revision L TKA for aseptic loosening. Please note that any additional orders needs or changes will need to be obtained from this patient's PCP: Sari Hay MD [facility] [address] [place] [address] All A agencies which cover the area of patient's residence have been reviewed, either verbally shaun writing, and patient/family have chosen the home health care agency as noted for home services. Questions: Agency name and contact information: [facility] Patient location post discharge: Home What services are requested: Physical Therapy Occupational Therapy Start date: Responsible MD post discharge contact info: PCP Primary Care Provider: Sari Hay MD [phone] Discharge References/Attachments None documented in this encounter Discharge Instructions * Patient Instructions* Geoffrey Paredse PA - 03/14/2021 5:09 PM EDT Activity: 1. Your weight-bearing status is - weight bearing as tolerated of left leg. 2. Remember to use a walker [...] days after surgery. After your dose on 04/13/2021 stop the Aspirin, unless you are told otherwise by your Orthopedic surgeon. Take this medication with food or large amounts(240 mL) of water or milk to minimize [...] bowel movement. You can also take an szam-ihs-sigirpe medication, Miralax if needed to combat constipation. 2. If you need a renewal on your narcotic pain medication, you need to give the Orthopedic clinic enough time to process your request. This can take up to three days, so plan accordingly. 3. Continue acetaminophen (Tylenol) 1,000mg every 8 hours around the clock until 03/24/21 (for ten days after your surgery). This can be effective in controlling pain along with your other medications. After that you can take Tylenol as needed per package insert. Do not take more than 3,000mg of acetaminophen in a 24 hour period. 4. You have been discharged on a short acting narcotic. You will be on this medication for a limited period of time only. Take the smallest dose possible to control your pain. As your pain improves take smaller, less frequent doses. You may break the tablet to achieve a smaller dose. 5. You are being discharged with gabapentin 300mg orally in the evening for 30 days. Please take asprescribed and follow-up with your orthopaedic provider regarding discontinuation. Shower (internal sutures): 1. You can shower [...] operative dressing 7 days after your surgery (03/21/2021). When it is removed you can leave the incision open to air or cover it with a light dressing. Some patients have an additional item called Prineo on their skin. If you have this it will appear as a mesh dressing directly over the incision. Please leave this in place until your follow up with orthopedics. 3. If you have lots of drainage when you get home (and it is before 03/21/2021), remove the operative dressing and replace it with dry sterile gauze. Continue with daily dressing changes (and as needed) until the drainage stops, then remove the dressing and leave the incision open to air or lightly covered. Misc: Remember that ICE and elevation are very important after surgery to help decrease swelling and control pain. Use ICE for 20-30 minutes at a time and keep your leg elevated as much as possible. Call your doctor ([phone]) if you develop: 1. Fever greater than 100.5 2. Severe nausea or vomiting 3. Increasing pain that is not controlled by pain medications 4. Increasing redness, swelling, or drainage from incisions 5. Change in sensation FOLLOW-UP APPOINTMENTS: 1. You will have follow-up appointments at [facility] as indicated below in Future Appointment and Orders. 2. You will need to have x-rays prior to your follow-up appointment on 04/11/2021. Please come to Radiology, desk 3T, 1 hour BEFORE that appointment for those x-rays. Future Appointments Date Time Provider Department Center 04/11/2021 10:30 AM [facility] DX ROOM 1 [facility] Xray [facility] Rad 04/11/2021 11:30 AM Teressa Taylor PA [facility] ORTH [address] [facility] If you have questions or concerns: Thursday through Thursday, 8 AM - 5 PM, please call Dr. Rod Valdez MD's office at . If it is after 5 PM, the weekend, or holidays, please call and ask to speak with theOrthopedic resident on-call. documented in this encounter Medications at Time of Discharge Medication Sig Dispensed Refills Start Date End Date acetaminophen (Tylenol) 500 mg Tablet Take 2 tablets by mouth every 8 hours for 10 days. 0 03/15/2021 03/25/2021 aspirin EC 81 mg Tablet, Delayed Release [...] up to 30 days. 0 03/15/2021 04/14/2021 gabapentin (Neurontin) 300 mg Capsule Take 1 capsule by mouth nightly for 30 days. 30 capsule 03/15/2021 03/29/2021 oxyCODONE (Roxicodone) 5 mg Tablet Take 1 [...] as of this encounter Progress Notes * Rod Weaver RN - 03/15/2021 2:05 PM EDT Pt discharged from [facility] this afternoon. picked Pt up. IV removed and all belongings sent with Pt. Discharged instructions given to Pt. * Cas Schulz, OT - 03/15/2021 1:22 PM EDT Occupational Therapy Note Document Type: (P) contact Total Minutes, Occupational Therapy: (P) 0 Reason: Chart reviewed and orders received. Patient independent with ADLS and functional mobility. No OT needs indicated. We will monitor till d/c. Cas Schulz OTR/L [id number] Pager: [phone] CAS SCHULZ OT 03/15/2021 Occupational Therapy Rehabilitation Department * Corine Hu RN - 03/15/2021 10:44 AM EDT The patient/passenger service representative has been provided a list of Home Health Agencies/DME vendors which servetheir preferred geographic area. A letter describing our affiliations was reviewed with them and they were educated about their right to choose where referrals are placed. Provided patient with [facility] Star Quality Rating for Home care . Patient requests referral to: [facility] [email or web address]. PHONE: [phone] FAX: [phone] . Expected date of discharge: 03/15/2021 Referral routed to the Stitcher Operator for matching with agency/vendor and to provide any required information. * Jane Tavares PT - 03/15/2021 9:51 AM EDT Physical Therapy Evaluation Patient profile: Sissy Eugene is a 55 y.o. female admitted on 03/14/2021 for (L) TKA revision for aseptic loosening. Patient with the following active problems: Past Medical History: Diagnosis Date ??? Anemia see chart ??? Delayed emergence from anesthesia per patient, surgeries over 10 yrs ago, no issues since ??? 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 Motion sickness ??? Postoperative anemia due to acute blood loss Past Surgical History: Procedure Laterality Date ??? JOINT REPLACEMENT Left knee ??? PRO OSTEOTOMY METATARSAL (NOT 1ST) Left 10/01/2015 OSTEOTOMY, METATARSAL, OTHER THAN FIRST, EACH performed [facility] ??? PRO REVISE KNEE JOINT REPLACE, 1 PART Left 02/10/2019 @TOTAL KNEE REVISION ARTHROPLASTY, ONE COMPONENT (WRVU 21.12) performed by Rod Valdez MD [facility] MAIN OR ??? PRO XFER SINGLE SUPERFICI LOW LEG TENDON Left 10/01/2015 TENDON TRANSFER, ANKLE, SUPERFICIAL performed by [facility]oo [facility] at [facility] ??? TISSUE TRANSFER ACL cadaver tissue Active Non-Hospital Problems Diagnosis ??? Closed fracture of distal end of left radius with routine healing, DOI: 09/05/2019 ??? Obesity, Class II, BMI 35-39.9 ? ? s/p left knee I&D, polyethylene exchange for acute PJI with Dr. Valdez 02/10/19 ??? Hammer toe of left foot Social History: Home set-up: Pt lives with her and son in a 1 story campus house. Pt's sister who is a physical therapist will be staying with her for a few days after surgery. 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 Pt was not using an AD for mobility. Equipment at home: none Fall history: No reported falls Precautions/Special Considerations: Fall precautions Lines: PIV, Masimo Activity Orders: WBAT LLE Diet: Regular diet Mobility and Positioning Recommendations: ?? Pt. to utilize FWW and SBA for ambulation and transfers with nursing. ?? Please encourage up to chair for meal times as able. ?? Pt encouraged to ambulate frequently with staff, getting into the bathroom for toileting and walking out in the lacy >/= 3 times daily as able. Subjective: ???I was surprised at how little this knee has been bothering me!?? Objective: Pt seen for evaluation today. Pain: Number Location At rest 6/10 L knee With activity 6/10 L knee Vital Signs: No reports of dizziness with activity, VSS At Rest SpO2 (RA) 99% BP (MAP) NA HR 74 bpm Mental Status: alert, oriented to person, place, and time Vision: WFL Skin: Increased edema surrounding L LE Musculoskeletal: ROM: Decreased L knee ROM (able to achieve at least 80 degrees of flexion in sitting), all other extremities WFL. Strength: Decreased L LE strength, ( L knee extension 2/5 strength, L hip flexion 2/5 strength) Sensation: No reports of numbness and tingling Bed Mobility: Supine to Sit: Independent Sit to Supine: Independent Transfers: Sit to Stand: Independent Stand to Sit: Independent Bed to Chair: NA. Pt back to bed at end of session Gait: Distance: 150' Device used: FWW Level of assist: Supervision. Gait mechanics: Pt ambulated with a reciprocal pattern of gait and decent gait speed. Pt had decreased knee flexion during swing and utilized UE support on FWW. Verbal cueing provided on how to use FWW. Offered to practice ambulating using crutches with the patient and she respectively declined feeling confident in her abilities to use them. Stairs: Pt managed one, 6 stair with FWW acting as (B) rails. Pt able to independently verbalize and demonstrate correct stair negotiation strategy. Pt had no increase in pain. Balance: Sitting Static: Normal Sitting Dynamic: Normal. Able to bend down to roll up pant leg in sitting. Standing Static: Normal. Able to stand independently Standing Dynamic / Gait: Normal. Able to ambulate without an AD. Therex: Exercises were reviewed and handout was given to the patient. Pt was very familiar with exercise handout from her previous surgeries. Pt discouraged from attempting LAQs at this time to preserve soft tissue healing. Education: patient has been educated on Assistive device/technique, Stairs, Exercise, Gait , Home program, Role of therapy and Discharge planning and verbalizes and demonstrates understanding. Patient status, treatment, and mobility recommendations discussed with nursing. Assessment: Sissy Eugene was seen today for physical therapy evaluation. Pt presents to physical therapy with pain, decreased ROM, decreased strength and altered gait mechanics. Despite the abovelisted impairments, patient demonstrates independence with bed mobility, transfers, standing balance, ambulation and stair negotiation. The patient was educated on the importance of positioning during rest to preserve knee extension ROM. Pt has shown independence with functional mobility, has keen safety awareness, previous experience using crutches for mobility and strong social support at home, therefore, it is recommended that the patient be d/c home with home health services. There is no further anticipated physical therapy needs at this time. Discharge Recommendations: Based on the current findings, Anticipated Discharge Disposition (PT): home with home health when medically ready for hospital discharge. Consult Recommendations: No other consults recommended at this time. Equipment needs: Anticipated Equipment Needs at Discharge (PT): crutches, axillary Plan: Therapy Frequency (PT): evaluation only 2017 PT Evaluation Code Rationale: ?? Diagnosis & Pertinent Co-Morbidities, personal factors, and present illness affecting Plan of Care: (see above); Additional personal factors or co- morbidities that impact plan: ?? Total # of Factors: 0 1-2 3+ X ?? Examination of body system impairments, functional limitations and behaviors, and/or participation restrictions. Addressing 1-2 elements Addressing 3 + elements Addressing 4 + elements X ?? Clinical presentation: See assessment above. Stable/Uncomplicated Evolving/Fluctuating Symptoms Unstable/Unpredictable X ?? Clinical decision making of low complexity based on pt's functional performance as outlined in this evaluation. Time IN / OUT: 951-1012 Total Minutes, Physical Therapy: 21 (eval) Audrey Anderson, PT/s Physical Therapy Inpatient Rehabilitation Department Chart reviewed and I was present throughout the above therapy session with Audrey Anderson, PT/s. Michell reviewed and agree with the above documentation and plan of care. JANE TAVARES, PT Pager [phone] * Kenneth De Leon MD - 03/15/2021 6:30 AM EDT ORTHOPAEDIC SURGERY INPATIENT PROGRESS NOTE Patient Name: Sissy Eugene Age: 55 y.o. Surgery/Issue: Left Total Knee Arthroplasty Revision Attending: Dr. Courtney MD Date of surgery: 03/14/2021 SUBJECTIVE / INTERVAL HISTORY: NAEON Tolerating po intake Has been OOB, ambulated to toilet Voiding without issue Pain well controlled Denies CP/SOB/N/V/F/C. FOCUSED REVIEW OF SYSTEMS: as above. Active Hospital Problems Diagnosis ??? S/P revision of total knee, left [place] 03/14/21 Resolved Hospital Problems No resolved problems to display. Active Non-Hospital Problems Diagnosis ??? Closed fracture of distal end of left radius with routine healing, DOI: 09/05/2019 ??? Obesity, Class II, BMI 35-39.9 ? ? s/p left knee I&D, polyethylene exchange for acute PJI with Dr. Valdez 02/10/19 ??? Hammer toe of left foot MEDICATIONS: ??? BUpivacaine (pf) (Marcaine) (2.5 mg/mL) 0.25% injection ??? cloNIDine (pf) (Duraclon) (100 mcg/mL) Epidural injection ??? ketorolac (Toradol) (30 mg/mL) injection ??? sodium chloride 0.9 % (flush) flush 5 mL ??? sodium chloride 0.9 % (flush) flush 5-20 mL ??? lidocaine (Xylocaine) 1% (10 mg/mL) injection 3 mg ??? polyethylene glycoL (Miralax) packet 17 g ??? senna-docusate (Pericolace) 8.6-50 mg per tablet 2 tablet ??? bisacodyl EC (Dulcolax) tablet 10 mg ??? bisacodyL (Dulcolax) suppository 10 mg ??? acetaminophen (Tylenol) tablet 1,000 mg ??? gabapentin (Neurontin) capsule 600 mg FOLLOWED BY [START ON 03/16/2021] gabapentin (Neurontin) capsule 300 mg ??? ketorolac (Toradol) (15 mg/mL) injection 15 mg ??? celecoxib (CeleBREX) capsule 200 mg ??? dexamethasone (Decadron) tablet 4 mg ??? pantoprazole EC (Protonix) tablet 20 mg ??? sodium chloride 0.9% infusion ??? oxyCODONE (Roxicodone) tablet 5-15 mg ??? ondansetron (Zofran) tablet 4 mg OR ondansetron (pf) (Zofran) (2 mg/mL) injection 4 mg ??? aspirin EC tablet 81 mg ??? sodium chloride 0.9% 1,000 mL (03/15/21 0502) OBJECTIVE: Temp: [36.1 ??C (97 ??F)-36.9 ??C (98.4 ??F)] Heart Rate: [39-60] Resp: [8-20] BP: (105-144)/(68-91) Intake/Output Summary (Last 24 hours) at 03/15/2021 0630 Last data filed at 03/15/2021 0502 Gross per 24 hour Intake 2613.32 ml Output 400 ml Net 2213.32 ml Body mass index is 32.43 kg/m??. Exam: General: NAD, awake/alert CV: RRR assessed peripherally Resp: Breathing comfortably on RA LLE: Dressing c/d/i. In cryocuff. Motor intact to EHL, FHL, TA. Sensation intact in foot/calf. Brisk capillary refill distally. 2+ DP/PT palpable. Lab Results Component Value Date NA 138 03/15/2021 K 4.2 03/15/2021 CL 105 03/15/2021 CO2 24 03/15/2021 BUN 14 03/15/2021 CREATININE 0.76 03/15/2021 GLUCOSE 132 03/15/2021 CALCIUM 8.9 03/15/2021 Lab Results Component Value Date WBC 12.6 (H) 03/15/2021 HGB 11.6 (L) 03/15/2021 HCT 35.2 (L) 03/15/2021 MCV 89.6 03/15/2021 PLATELET 237 03/15/2021 Lab Results Component Value Date INR 0.9 03/05/2021 IMAGING: On personal review of XR L knee there is newly placed revision prosthesis with no acute hardware complications noted. ASSESSMENT / PLAN: Sissy Eugene is a 55 y.o. female 1 Day Post-Op s/p L TKA revision for aseptic loosening. Progressing well with stable vitals. Plan for PT/OT and possible DC today. HGB consistent with acute blood loss anemia. Activity: WBAT LLE Closure: Resorbable sutures Dressing: silver x 7 days Anticoagulation: ASA 81mg BID for 30 days Antibiotics: intra op Consults: PT Dispo:likely home POD1 Follow-up: as scheduled. Kenneth De Leon MD 03/15/2021 Future Appointments Date Time Provider Department Center 04/11/2021 10:30 AM [facility] DX ROOM 1 [facility] X[facility] Rad 04/11/2021 11:30 AM Teressa Taylor, PA [facility] ORTH [address] [facility] * Mayuri Pearce MD - 03/14/2021 7:52 PM EDT ORTHOPAEDIC SURGERY INPATIENT PROGRESS NOTE Patient Name: Sissy Eugene Age: 55 y.o. Surgery/Issue: Left Total Knee Arthroplasty Revision Attending: Dr. Courtney MD Date of surgery: 03/14/2021 SUBJECTIVE / INTERVAL HISTORY: Denies CP, SOB, nausea, vomiting, numbness/weakness. Pain well controlled. Resting comfortably in bed on RA. FOCUSED REVIEW OF SYSTEMS: as above. Active Hospital Problems Diagnosis ??? S/P revision of total knee, left [place] 03/14/21 Resolved Hospital Problems No resolved problems to display. Active Non-Hospital Problems Diagnosis ??? Closed fracture of distal end of left radius with routine healing, DOI: 09/05/2019 ??? Obesity, Class II, BMI 35-39.9 ? ? s/p left knee I&D, polyethylene exchange for acute PJI with Dr. Valdez 02/10/19 ??? Hammer toe of left foot MEDICATIONS: ??? sodium chloride 0.9 % (flush) flush 5-20 mL ??? lidocaine (Xylocaine) 1% (10 mg/mL) injection 3 mg ??? tranexamic acid (Cyklokapron) 1,463 mg in sodium chloride 0.9% 114.63 mL infusion ??? BUpivacaine (pf) (Marcaine) (2.5 mg/mL) 0.25% injection ??? naloxone (Narcan) (0.4 mg/mL) injection 0.04 mg ??? HYDROmorphone (Dilaudid) (2 mg/mL) multi-dose injection solution 0.2-0.4 mg ??? ondansetron (pf) (Zofran) (2 mg/mL) injection 4 mg ??? prochlorperazine (Compazine) (5 mg/mL) injection 5 mg ??? cloNIDine (pf) (Duraclon) (100 mcg/mL) Epidural injection ??? ketorolac (Toradol) (30 mg/mL) injection ??? acetaminophen (Tylenol) tablet 1,000 mg ??? sodium chloride 0.9% infusion ??? sodium chloride 0.9% 1,000 mL (03/14/21 1728) OBJECTIVE: Temp: [36.1 ??C (97 ??F)-36.5 ??C (97.7 ??F)] Heart Rate: [39-60] Resp: [8-18] BP: (111-144)/(69-91) Intake/Output Summary (Last 24 hours) at 03/14/2021 1840 Last data filed at 03/14/2021 1800 Gross per 24 hour Intake 1100 ml Output 400 ml Net 700 ml There is no height or weight on file to calculate BMI. Exam: General: NAD, awake/alert CV: RRR assessed peripherally Resp: Breathing comfortably on RA LLE: Dressing c/d/i. In cryocuff. Motor intact to EHL, FHL, TA. Sensation intact in foot/calf. Brisk capillary refill distally. 2+ DP/PT palpable. Lab Results Component Value Date NA 143 03/05/2021 K 4.8 03/05/2021 CL 106 03/05/2021 CO2 28 03/05/2021 BUN 19 (H) 03/05/2021 CREATININE 0.78 03/05/2021 GLUCOSE 89 03/05/2021 CALCIUM 10.1 03/05/2021 Lab Results Component Value Date WBC 6.9 03/05/2021 HGB 13.2 03/05/2021 HCT 40.3 03/05/2021 MCV 90.6 03/05/2021 PLATELET 249 03/05/2021 Lab Results Component Value Date INR 0.9 03/05/2021 IMAGING: On personal review of XR L knee there is newly placed revision prosthesis with no acute hardware complications noted. ASSESSMENT / PLAN: Sissy Eugene is a 55 y.o. female Day of Surgery s/p L TKA revision for aseptic loosening. Progressing well with stable vitals. Activity: WBAT LLE Closure: Resorbable sutures Dressing: silver x 7 days Anticoagulation: ASA 81mg BID for 30 days Antibiotics: intra op Consults: PT Dispo:likely home POD1 Follow-up: as scheduled. Mayuri Pearce MD 03/14/2021 Future Appointments Date Time Provider Department Center 04/11/2021 10:30 AM [facility] DX ROOM 1 [facility] Xray [facility] Rad 04/11/2021 11:30 AM Teressa Taylor PA [facility] ORTH [address] [facility] * Sb Roca RN - 03/14/2021 6:26 PM EDT Pt arrived to PACU at 1628 s/p left total knee revision. Pt VSS, she is alert and oriented x 4. Hassensation and movement to her toes s/p spinal, but cannot currently lift legs off bed. Arrived on 6L full face mask, but within a half hour of arrival to PACU, she was transitioned to RA, with no issue. Left knee dressing CDI. 1815: Pt progressed to phase II recovery. VSS , pt currently eating crackers and drinking. Not currently complaining of pain. Cryo cuff reinflated x 1 hr ago. 2054: Report called to Dora Musa on [facility]. Pt to be transferred momentarily. * Corie Newby RN - 03/14/2021 5:13 PM EDT 1714 - dinner break coverage. Xrays completed. documented in this encounter H&P Notes * Rod Valdez MD - 03/14/2021 12:28 PM EDT H&P reviewed. No changes noted. Respiratory effort at baseline. Patient appears well perfused. Proceed as planned. documented in this encounter Miscellaneous Notes * Plan of Care - Dora Salas RN - 03/15/2021 5:47 AM EDT OUTCOME EVALUATION NOTE: OUTCOME SUMMARY: Alert and oriented x 4. VSS Denies CP, SOB, nausea, vomiting, numbness/weakness. Pain well controlled with PRN oxy 5 mg x 2 tonight.Resting comfortably in bed on RA . Silver mepilex Dressing CDI to Lknee. Cryocuff on at this time. Patient ambulated x 3 to BR voiding and PVR 145ml this AM. PLAN MOVING FORWARD: Mobilize. Discharge planning Pain control INDIVIDUALIZED FALL PREVENTION INTERVENTIONS: Patient-specific fall risk factors per assessment: [current deficits]: Hospital environment, Pain, recent surgery Assistance [level of assistance required for transfers and ambulation]: One Supervision [direct monitoring required during toileting and ADLs]: One Surveillance [continuous indirect monitoring]: Jovanni Patient-specific fall prevention interventions for sensory deficits provided, if applicable: [X] No CPG GOAL OUTCOME EVALUATION: * Brief Op Note - Kenneth De Leon MD - 03/14/2021 4:52 PM EDT Brief Operative Note Patient Name: Sissy Eugene : [id number] MR#: [id number] Case Date: 03/14/2021 Surgeon: Surgeon(s) and Role: * Rod Valdez MD - Primary * Kenneth De Leon MD - Resident Preoperative diagnosis: Aseptic Loosening Left TKA Postoperative diagnosis: Aseptic Loosening Left TKA Procedure(s) (LRB): TOTAL KNEE REVISION ARTHROPLASTY, ONE COMPONENT (WRVU 21.12) (Left) Anesthesia: General Local Findings: Tibial tray removed with fibrinous bed of tissue beneath, converted to revision stemmed implant. Complications: none Estimated Blood Loss: 400 mL * No values recorded between 03/14/2021 2:09 PM and 03/14/2021 4:20 PM * Specimens removed during surgery: * No orders in the log * Fluids: Intraprocedure Crystalloid Total Intake lactated ringers infusion 1000.00 mL Total Intake 1000 mL Output Blood Loss 400 mL Total Output 400 mL Net Net Volume 600 mL PRBCs: none (See Anesthesia Record/Report for Other Blood Products) Urine Output: (no urine output recorded) Drains: none Disposition: awakened from anesthesia, extubated and taken to the recovery room in a stable condition, having suffered no apparent untoward event. Condition: doing well without problems (Please see the Surgical Encounter Summary for any Implant and Specimen details pertinent to this patient.) Infection Bundle used? No * Op Note - Rod Valdez MD - 03/14/2021 2:[address] [facility] Operative Note Patient Name: Sissy Eugene : [id number] MR#: [id number] Case Date: 03/14/2021 Surgeon: Surgeon(s) and Role: * Rod Valdez MD - Primary * Kenneth De Leon MD - Resident Preoperative diagnosis: Aseptic Loosening Left TKA Postoperative diagnosis: Aseptic Loosening Left TKA Procedure(s) (LRB): TOTAL KNEE REVISION ARTHROPLASTY, ONE COMPONENT (WRVU 21.12) (Left) Anesthesia: Spinal Estimated Blood Loss: 400 mL Specimens removed during surgery: Joint fluid sent for cell count and culture; implants sent to [facility] Drains: * No LDAs found * Surgical Closure: Primary Closure - skin incision is completely closed without any wires, priyanka, drains or other devices Disposition: aroused from sedation, and taken to the recovery room in a stable condition Condition: doing well without problems (Please see the Surgical Encounter Summary for any Implant and Specimen details pertinent to this patient.) HPI/Surgical Indications: Sissy Eugene is a 55 y F who underwent a left TKA on 09/29/17 for post-traumatic osteoarthritis. She had some persistent medial pain and stiffness and returned for arthroscopic synovectomy on 01/18/19 and developed a subsequent acute periprosthetic infection, undergoinga DAIR procedure on 02/10/19 and treated with 6 weeks of IV antibiotics followed by 6 months of oral.She had no evidence of any return of infection but over the past year began having start up pain along her joint line. A bone scan was done in August of 2020 that showed increased uptake along the tibial tray. Inflammatory markers were normal. Given her consistent start up pain and abnormal bone scan, she was offered a left knee REvision TKA. Risks of rev TKA were discussed including infection,fracture, blood clots, instability, and medical complications including . Despite the risks discussed she wished to proceed with a left rev TKA and informed consent was signed in clinic. Implants: Femur: Isa NexGen PS (Retained) Tibia: Isa Persona Revision Size F Stem: 16mm x 135mm with 3mm offset Poly: Persona PS Size F 12mm Cement: 2 40g bags High Visc with antibiotic Intraoperative findings: Pre-op ROM 5-110. Clear yellow joint fluid aspirated, cell count returned 103 (13%PMN). Femur and patella well fixed and retained. Tibia with significant anterior bone overgrowth. Not grossly loose but minimal fixation along posterior tray with fibrous interface. Removed with no additional bone loss. ROM after arthrotomy closure 0-120. Procedure Description: The patient was identified in the preoperative holding area where history and physical and surgical consent were reviewed and confirmed. The left leg was again identified as the operative site and this was marked with a green [place]. An adductor canal block was placed for postoperative pain control by the anesthesia block team and the patient was then brought to the operating room where the above anesthetic was administered without complication. A blue towel was wrapped around the operative thigh as a barrier. Foot post and thigh post were placed for assistance with intraoperative positioning. Patient was administered 2 g of intravenous cefazolin as well as weight-based tranexamic acid prior to skin incision. A surgical timeout was held to confirm the patient's identity, the planned surgical procedure as well as site and laterality, and to address any safety concerns. There were no safety concerns and all parties were in agreement to proceed. The patient's left lower extremity was then circumferentially prepped with chlorhexidine soap, alcohol, and ChloraPrep and was draped in standard sterile fashion. The knee was flexed and the skin under the planned incision was injected with 20 cc of quarter percent Marcaine. A scalpel was used to incise the skin and sharp dissection was carried down to the extensor mechanism. Full-thickness medial lateral skin flaps were elevated. Prior to arthrotomy needle was inserted in the femoral notch and 15 cc of clear yellow joint fluid was aspirated. This was sentfor cell count and culture. A medial parapatellar arthrotomy was performed and soft tissue was elevated in the subperiosteal plane around the medial proximal tibia. Hemostasis was achieved with electrocautery. The knee was placed in extension and Roland clamps were used to retract the extensor mechanism and acomplete synovectomy was performed to reestablish the medial and lateral gutters. The knee was carefully flexed with the patella subluxed and the polyethylene was exonerated using the appropriate instrument. The femur and patella were carefully evaluated and no fluid wave or micromotion was seen. They were challenged vigorously with a bone tamp and mallet and still no micromotion was noted. They were determined to be well fixed and appropriately positioned and were retained. Attention turned to the tibia. There is no gross micromotion seen. When I attempted to disrupt the implant/cement interface there was resistance anteriorly but very little fixation on the posterior aspect of the tibial tray. The proximal tibial interface was completely disrupted using a combinationof microsagittal saw flexible chisels and osteotomes. I was then able to elevate the tibial tray using a bone tamp and a mallet. Hohmann retractors were placed posteriorly to sublux the tibia anteriorly and a bent Hohmann was placed over the lateral plateau to retract the extensor mechanism. We were then able to elevate the tibial tray and free it from underneath the femur and this was removed without any remaining additional bone loss. An osteotome and mallet were used to disrupt and remove the cement mantle around the keel. A Charnley awl was used to open the tibial canal and the canal was then sequentially reamed to 16 mm at which point we had excellent endosteal contact and intramedullary alignment at the 135 mm depth. The reamer was left in position and the 0 degree cutting block was placed over the handle and was tightenedfor a freshening cut. An oscillating saw was used to cut the medial proximal tibia and then the reamer and cutting block were removed and the proximal medial tibia was used as a cutting guide to cut across the lateral surface. Remaining bone and soft tissue was removed. The size F persona revision tibial tray template was laid over the tibia and noted to give excellent fit. The reamer handle was placed back into position and with a 3 mm offset bushing at the 4:30 position there was excellent tray coverage with the appropriate external rotation. The fins were marked on the tibial bone and the proximal tibia was prepared using the appropriate reamers over the offset template. The keel punch was used also over the offset template to finish the preparation of the proximal tibia. On the back table a trial size F tibial tray was assembled with a 16 mm x 135 mm stem trial set at the appropriate 3 mm offset orientation.. This was inserted and sat flush across the proximal tibia. The knee was then reduced with a 12 mm posterior stabilized polyethylene trial and brought through full range of motion. There is excellent stability with full extension and normal patella tracking to flexion. The trial components were removed. The exposed bony surfaces were thoroughly irrigated with normal saline using pulsatile lavage. 25 cc of local anesthetic cocktail consisting of quarter percent Marcaine, 50 mcg of clonidine, and 30 mg of Toradol was injected into the posterior soft tissue and the remaining 25 cc was injected into the anterior synovium and periosteum for a total of 50 cc. On the back table the implants were openedand assembled according to clay structure builder and servicer instructions. 2 x 40 g bags of high viscosity cement with antibiotics were mixed under vacuum suction and were applied to the underside of the tibial tray. Additional cement was hand pressurized onto the exposed tibial bone. The tray was then inserted and impa cted and excess cement was removed. The tray was noted to sit flush against the proximal tibia. The12 mm posterior stabilized polyethylene was inserted and the locking mechanism was appropriately engaged. The knee was reduced and range of motion and stability were confirmed. The knee was placed at 90 degrees of flexion and the arthrotomy was closed initially with #1 interrupted Vicryl suture and then oversewn with #2 running strata fix suture. The deep subcutaneous tissues were closed with running 0 Vicryl and 2-0 interrupted Vicryl were used to close the superficial moise bcutaneous tissue and the skin was closed with a 3-0 running Monocryl suture and sealed with Dermabond skin glue. A Mepilex silver dressing was applied. The patient was aroused from sedation, returned to her hospital bed and taken to recovery area in stable condition having suffered no apparent complications. All needle and sponge counts were correctat the conclusion of the case. Infection Bundle used? N/A Attestation: Case Date: 03/14/2021 I was present and I participated during the entire procedure (does not need to include opening and closing). Rod Valdez MD 03/14/2021 Implant Name Type Inv. Item Serial No. Filter Tip Catcher Lot No. LRB No. Used Action CEMENT BONE HIGH VISCOSITY 40GM GENTAMICIN SINGLE DOSE PMMA ([id number]) - [id number] IMPLANTS CEMENT BONE HIGH VISCOSITY 40GM GENTAMICIN SINGLE DOSE PMMA ([id number]) [employer] SHAI [id number] Left 1 Implanted CEMENT BONE HIGH VISCOSITY 40GM GENTAMICIN SINGLE DOSE PMMA ([id number]) - [id number] IMPLANTS CEMENT BONE HIGH VISCOSITY 40GM GENTAMICIN SINGLE DOSE PMMA ([id number]) [employer] SHAI [id number] Left 1 Implanted Isa persona stem extension [id number] Left 1 Implanted Isa Persona Left PS poly 12mm ISA BIOMET - [id number] Left 1 Implanted Isa Persona Fixed Tibia left size F ISA BIOMET - [id number] Left 1 Implanted documented in this encounter Plan of Treatment Not on file documented as of this encounter Procedures Procedure Name Priority Date/Time Associated Diagnosis Comments HEMOGRAM Routine 03/15/2021 2:21 AM EDT DIFFERENTIAL, AUTOMATED Routine 03/15/2021 2:21 AM EDT HC VENIPUNCTURE Routine 03/15/2021 2:21 AM EDT BASIC METABOLIC PANEL (NON-FASTING) Routine 03/15/2021 2:21 AM EDT XR KNEE AP & LAT LEFT Routine 03/14/2021 5:42 PM EDT TOTAL KNEE REVISION ARTHROPLASTY, ONE COMPONENT Routine 03/14/2021 4:31 PM EDT HC BODY FLUID CELL CT W/DIFF STAT 03/14/2021 2:15 PM EDT Revise Knee Joint Replace, 1 Part ([id number]) 03/14/2021 1:45 PM EDT Aseptic Loosening Left TKA IMPLANTABLE DEVICES SCAN 03/14/2021 12:00 AM EDT documented in this encounter Results * (ABNORMAL) Differential, Automated (03/15/2021 2:21 AM EDT) Neutrophils % 85.4 % [facility] Neutr Abs (ANC) 10.75(H) 1.70 - 6.10 x10(3)/ L [facility] Lymphocytes % 9.1 % [facility] Lymphocytes Abs 1.1 0.9 - 3.2 x10(3)/[facility] Monocytes % 4.9 % [facility] Monocyte Abs 0.6 0.3 - 0.9 x10(3)/[facility] Eosinophils % 0.0 % [facility] Eosinophils Abs 0.0 0.0 - 0.4 x10(3)/[facility] Basophils % 0.2 % [facility] Basophils Abs 0.0 0.0 - 0.1 x10(3)/[facility] Immature Gran % 0.40 % [facility] Comment: Immature granulocytes(IG's)percentage and absolute count will include metamyelocytes, myelocytes, and promyelocytes. Blood smears from CBCs yielding IG's will be scanned manually for concordance. If this scan disagrees with the automated IG or if promyelocytes are noted, a manual differential will be performed. Lorrie Gran Abs 0.05(H) 0.00 - 0.04 x10(3)/[facility] Blood 03/15/2021 2:21 AM EDT 03/15/2021 2:38 AM EDT Narrative Resulting Agency Comment Spec In Lab Kenneth De Leon MD HEMATOLOGY ORDERABLE S [facility] [place] [address] * (ABNORMAL) Hemogram (03/15/2021 2:21 AM EDT) WBC 12.6(H) 4.0 - 9.5 x10(3)/[facility] RBC 3.93(L) 4.00 - 5.21 x10(6)/[facility] Hemoglobin 11.6(L) 11.7 - 15.5 gm/dL [facility] Hematocrit 35.2(L) 35.7 - 45.8 % [facility] MCV 89.6 82.6 - 94.4 fL [facility] MCH 29.5 27.1 - 32.0 pg [facility] MCHC 33.0 31.7 - 35.0 gm/dL [facility] Platelets 237 145 - 357 x10(3)/[facility] RDWSD 39.7 37.0 - 46.0 [facility] RDWCV 12.1 11.5 - 14.1 % [facility] MPV 10.2 7.6 - 12.9 [facility] nRBC % Auto 0.0 % [facility] nRBC Abs Auto 0.000 0.000 - 0.000 x10(3)/[facility] Blood 03/15/2021 2:21 AM EDT 03/15/2021 2:38 AM EDT Narrative Resulting Agency Comment Spec In Lab Kenneth De Leon MD HEMATOLOGY ORDERABLE S [facility] [place] [address] * Basic Metabolic Panel (non-fasting) (03/15/2021 2:21 AM EDT) Glucose Lvl 132 65 - 199 mg/dL [facility] Comment:Diabetes: >=200 mg/d L plus symptoms BUN 14 8 - 18 mg/dL [facility] Creatinine 0.76 0.70 - 1.20 mg/dL [facility] Sodium 138 135 - 145 mmol/L [facility] Potassium 4.2 3.5 - 5.0 mmol/L [facility] Comment: Please note: ??Patients with WBC >100,000 may have falsely elevated Potassium levels. ??For accurate Potassium quantification in these patients send serum separator tube (gold top) for subsequent determinations. ??Contact the Clinical Chemistry Laboratory if there are any questions. Chloride 105 98 - 107 mmol/L [facility] CO2 24 22 - 31 mmol/L [facility] Anion Gap 9 5 - 15 mmol/L [facility] Calcium 8.9 8.5 - 10.5 mg/dL [facility] Estimated GFR 87 >=60 mL/min/1. 73 m?? [facility] Comment: This patient? s estimated glomerular filtration rate (eGFR) is between 87 mL/min/1.73 m2 (patients with less muscle mass) and 101 mL/min/1.73 m2 (patients with more muscle mass) [...] and symptoms in addition to eGFR. Blood 03/15/2021 2:21 AM EDT 03/15/2021 2:38 AM EDT Narrative Resulting Agency Comment Spec In Lab Rod Valdez MD CHEMISTRY ORDERABLES [facility] [place] [address] * XR Knee 1-2 Views Left (Generic) (03/14/2021 5:42 PM EDT) Anatomical Region Laterality Modality Knee Left Digital Radiogra phy Impressions 03/15/2021 8:17 AM EDT Left knee arthroplasty without complications. Thank you for letting us participate in the care of this patient. ??If you are a health care provider and have any questions regarding this report, please contact the number below. ??For patients who have questions please contact the health home care scheduler that requested your imaging first. ? Electronically signed by: Markos Han MD, [facility] ([phone]), at 03/15/2021 8:17 AM Narrative 03/15/2021 8:17 AM EDT EXAMINATION: XR KNEE 1-2 VIEWS LEFT (GENERIC) CLINICAL HISTORY: s/p revision tka, please include entire tibial stem in XR TECHNIQUE: 2 views LEFT knee COMPARISON: September 12, 2020 FINDINGS: A knee prosthesis is demonstrated in near anatomic position and alignment. A long tibial stem is demonstrated. No other significant osseous finding is identified. Procedure Note Markos Han MD - 03/15/2021 EXAMINATION: XR KNEE 1-2 VIEWS LEFT (GENERIC) CLINICAL HISTORY: s/p revision tka, please include entire tibial stem inXR TECHNIQUE: 2 views LEFT knee COMPARISON: September 12, 2020 FINDINGS: A knee prosthesis is demonstrated in near anatomic position and alignment.A long tibial stem is demonstrated. No other significant osseous findingis identified. IMPRESSION Left knee arthroplasty without complications. Thank you for letting us participate in the care of this patient. If youare a health care provider and have any questions regarding this report,please contact the number below. For patients who have questions please contactthe health home care scheduler that requested your imaging first. Electronically signed by: Markos Han MD, [facility]([phone]), at 03/15/2021 8:17 AM Rod Valdez MD IMG DX ORDERABLES * Cell Count Body Fluid Knee, Left (03/14/2021 2:15 PM EDT) [facility] Signature Spec Type BF Knee, Left [facility] Color BF Yellow [facility] Appearance BF Clear [facility] WBC BF Ct 103 /mcl [facility] Comment: Guideline listed below apply to all body fluids. When Body Fluid WBC count is greater than Zero, a smear is made and scanned. All scan information is correlated with numeric results prior to being released to patients chart. The reference interval(s) and other method performance specifications have not been established for this body fluid. The test result must be integrated into the clinical context for interpretation. Called by BLS; Readback by Nuha Garcia; Called at 03-14-21 14:43. Polymorph % 13 % [facility] Comment: Polymorphonuclear cell percent and absolute values may contain Neutrophils, Eosinophils, and Basophils. Body fluid smear will be scanned manually for concordance. Mononuc % 87 % [facility] Comment: Mononuclear cell percent and absolute values may contain Lymphocytes and Monocytes. Body fluid smear will be scanned manually for concordance. Polymorph BF ABS 13 /mcl [facility] Comment: Polymorphonuclear cell percent and absolute values may contain Neutrophils, Eosinophils, and Basophils. Body fluid smear will be scanned manually for concordance. Mononuc ABS 90 /mcl [facility] Comment: Mononuclear cell percent and absolute values may contain Lymphocytes and Monocytes. Body fluid smear will be scanned manually for concordance. Knee, Left 03/14/2021 2:15 PM EDT 03/14/2021 2:22 PM EDT Narrative Resulting Agency Comment Spec In Lab Rod Valdez MD BODY FLUIDS AND CANDICE TAVAREZ ORDERABLES [facility] [place] [address] * SCAN DOC: IMPLANTABLE DEVICES (03/14/2021 12:00 AM EDT) Narrative 03/14/2021 12:00 AM EDT Ordered by an unspecified provider. Scanning Provider MEDIA MGR SCAN EXT O RDR/RSLT documented in this encounter Visit Diagnoses Diagnosis S/P revision of total knee, left [place] 03/14/21 S/P revision of total knee, left [place] 03/14/21 documented in this encounter Administered Medications Inactive Administered Medications - up to 3 most recent administrations Medication Order MAR Action Action Date Dose Rate Site acetaminophen (Tylenol) tablet 1,000 mg 1,000 mg, Oral, ONCE, 1 dose, On Paty 03/14/21 at 1130, Administer on arrival in Same Day Program, Day of Surgery (Day of Procedure), Routine Given 03/14/2021 11:20 AM EDT 1,000 mg acetaminophen (Tylenol) tablet 1,000 mg 1,000 mg, Oral, EVERY 8 HOURS SCHEDULED, First dose on Paty 03/14/21 at 1715, Until Discontinued, Maximum dose of acetaminophen is 4000 mg from all sources in 24 hours. When ordered for pain, acetaminophen should be given even when other ordered pain medications are indicated. , Routine Given 03/15/2021 2:00 PM EDT 1,000 mg Given 03/14/2021 9:49 PM EDT 1,000 mg Given 03/14/2021 5:05 PM EDT 1,000 mg aspirin EC tablet 81 mg 81 mg, Oral, 2 TIMES DAILY, First dose on Paty 03/14/21 at 2215, Until Discontinued, Routine Given 03/15/2021 8:48 AM EDT 81 mg Given 03/14/2021 9:49 PM EDT 81 mg celecoxib (CeleBREX) capsule 200 mg 200 mg, Oral, 2 TIMES DAILY, First dose on Paty 03/14/21 at 2215, Until Discontinued, Routine Given 03/15/2021 8:49 AM EDT 200 mg Given 03/14/2021 9:50 PM EDT 200 mg celecoxib (CeleBREX) capsule 400 mg 400 mg, Oral, ONCE, 1 dose, On Paty 03/14/21 at 1130, Administer on arrival to Same Day Program, Day of Surgery (Day of Procedure), Routine Given 03/14/2021 11:20 AM EDT 400 mg dexamethasone (Decadron) tablet 4 mg 4 mg, Oral, DAILY, 2 doses, First dose on Thu03/15/21 at 0900, Last dose on Thu03/16/21 at 0900, Routine Given 03/15/2021 8:49 AM EDT 4 mg fentaNYL (PF) (50 mcg/mL) injection 50 mcg 50 mcg, Intravenous, EVERY 5 MIN PRN, Starting on Paty 03/14/21 at 1111, Until Paty 03/14/21 at 1209, Pain, or prior to injection of local anesthetic., Hold for respiratory rate less than 8 breaths per minute. (maximum dose 200 mcg), Day of Surgery (Day of Procedure), Routine Given 03/14/2021 11:58 AM EDT 50 mcg gabapentin (Neurontin) capsule 300 mg 300 mg, Oral, ONCE, 1 dose, On Paty 03/14/21 at 1130, Administer on arrival in Same Day Program, Day of Surgery (Day of Procedure), Routine Given 03/14/2021 11:20 AM EDT 300 mg gabapentin (Neurontin) capsule 300 mg 300 mg, Oral, NIGHTLY, First dose on Thu03/16/21 at 2100, Until Discontinued, Routine gabapentin (Neurontin) capsule 600 mg 600 mg, Oral, NIGHTLY, 2 doses, First dose on Paty 03/14/21 at 2215, Last dose on Thu03/15/21 at 2100, Routine Given 03/14/2021 9:49 PM EDT 600 mg HYDROmorphone (Dilaudid) (2 mg/mL) multi-dose injection solution 0.2-0.4 mg 0.2-0.4 mg, Intravenous, EVERY 10 MIN PRN, Starting on Paty 03/14/21 at 1654, Until Paty 03/14/21 at 2111, Pain, Give 0.2 mg every 10 minutes PRN for mild to moderate pain (1-5) Give 0.4 mg every 10 minutes PRN for moderate to severe pain (6-10). Hold for respiratory rate less than 10 per minute. Maximum dose 3 mg over one hour, including OR administration. If multiple pain medications are ordered, start with HYDROmorphone or morphine and use fentaNYL for breakthrough pain., PACU Recovery, Routine Given 03/14/2021 5:05 PM EDT 0.2 mg midazolam (pf) (Versed) (1 mg/mL) injection 1 mg 1 mg, Intravenous, EVERY 5 MIN PRN, Starting on Paty 03/14/21 at 1111, Until Paty 03/14/21 at 1209, Sleep, or prior to injection of local anesthetic, Hold for delirium/agitation. (Maximum dose 5 mg)., Day of Surgery (Day of Procedure), Routine Given 03/14/2021 12:07 PM EDT 1 mg ondansetron (pf) (Zofran) (2 mg/mL) injection 4 mg 4 mg, Intravenous, EVERY 8 HOURS PRN, Starting on Paty 03/14/21 at 2125, Until Thu03/15/21 at 1605, Nausea, May repeat times one in 30 minutes if ineffective. If multiple antiemetics are ordered, use ondansetron first, Recovery (Recovery-Hospital Unit) ondansetron (Zofran) tablet 4 mg 4 mg, Oral, EVERY 8 HOURS PRN, Starting on Paty 03/14/21 at 2125, Until Thu03/15/21 at 1605, Nausea, Vomiting, If multiple antiemetics are ordered, use ondansetron first. PO Preferred. If patient unable to take PO, may give IV if ordered. May repeat times one in 45 minutes if ineffective., Recovery (Recovery-Hospital Unit), Routine oxyCODONE (Roxicodone) tablet 5-15 mg 5-15 mg, Oral, EVERY 4 HOURS PRN, Starting on Paty 03/14/21 at 2125, Until Thu03/15/21 at 1605, Pain, Give 5 mg for mild pain (1-3), 10 mg for moderate pain (4-6) or 15 mg for severe pain (7-10) May give an additional 5 mg in 30 minutes ONCE if pain not relieved., Routine Given 03/15/2021 4:53 AM EDT 5 mg Given 03/14/2021 9:55 PM EDT 5 mg pantoprazole EC (Protonix) tablet 20 mg 20 mg, Oral, DAILY, First dose on Thu03/15/21 at 0900, Until Discontinued, DO NOT CRUSH OR OPEN Given 03/15/2021 8:48 AM EDT 20 mg polyethylene glycoL (Miralax) packet 17 g 17 g, Oral, 2 TIMES DAILY, First dose on Thu03/14/21 at 2215, Until Discontinued, Routine Given 03/14/2021 9:55 PM EDT 17 g senna-docusate (Pericolace) 8.6-50 mg per tablet 2 tablet 2 tablet, Oral, 2 TIMES DAILY, First dose on Paty 03/14/21 at 2215, Until Discontinued, Routine Given 03/15/2021 8:48 AM EDT 2 tablets Given 03/14/2021 9:55 PM EDT 2 tablets sodium chloride 0.9 % (flush) flush 5 mL 5 mL, Intravenous, 2 TIMES DAILY, First dose on Paty 03/14/21 at 2215, Until Discontinued, Recovery (Recovery-Hospital Unit), Routine Given 03/15/2021 8:54 AM EDT 5 mLs Given 03/14/2021 9:50 PM EDT 5 mLs sodium chloride 0.9% infusion 1,000 mL, at 100 mL/hr, Intravenous, CONTINUOUS, Starting on Paty 03/14/21 at 1730, Until Thu03/15/21 at 1605, Recovery (Recovery-Hospital Unit) New Bag 03/15/2021 5:02 AM EDT 1,000 mLs 100 mL/hr New Bag 03/14/2021 5:28 PM EDT 1,000 mLs 100 mL/hr documented in this encounter Active and Recently Administered Medications Times are shown in EDT. Scheduled Medication Order 03/13/2021 03/14/2021 03/15/2021 acetaminophen (Tylenol) tablet 1,000 mg (COMPLETED) 1,000 mg, Oral, ONCE, 1 dose, On [place] 03/14/21 at 1130, Administer on arrival in Same Day Program, Day of Surgery (Day of Procedure), Routine 1120 (Given - Provider: Nhi Kapadia RN) acetaminophen (Tylenol) tablet 1,000 mg 1,000 mg, Oral, EVERY 8 HOURS SCHEDULED, First dose on Paty 03/14/21 at 1715, Until Discontinued, Maximum dose of acetaminophen is 4000 mg from all sources in 24 hours. When ordered for pain, acetaminophen should be given even when other ordered pain medications are indicated. , Routine 1705 (Given - Provider: Sb Roca RN)2149 (Given - Provider: Dora Salas RN) 0600 (Not Given - Provider: Dora Salas RN - Reason: Patient/family refused)1400 (Given - Provider: Rod Weaver RN) aspirin EC tablet 81 mg 81 mg, Oral, 2 TIMES DAILY, First dose on Paty 03/14/21 at 2215, Until Discontinued, Routine 214 (Given - Provider: Dora Salas RN) 0848 (Given - Provider: Rod Weaver RN) ceFAZolin (Ancef) 2 g in dextrose 5% 100 mL infusion (COMPLETED) 2 g, Intravenous, EVERY 3 HOURS, 1 dose, First dose on Paty 03/14/21 at 1130, Administer over 30 Minutes, Redose after 3 hours., Intra-Operative (Intra-Procedure), Indication for (Active or Suspected): Prophylaxis 1349 (Given - Provider: Osman Rothman MD) celecoxib (CeleBREX) capsule 200 mg 200 mg, Oral, 2 TIMES DAILY, First dose on Paty 03/14/21 at 2215, Until Discontinued, Routine 215 (Given - Provider: Dora Salas RN) 0849 (Given - Provider: Rod Weaver RN) celecoxib (CeleBREX) capsule 400 mg (COMPLETED) 400 mg, Oral, ONCE, 1 dose, On Paty 03/14/21 at 1130, Administer on arrival to Same Day Program, Day of Surgery (Day of Procedure), Routine 1120 (Given - Provider: Nhi Kapadia RN) dexamethasone (Decadron) tablet 4 mg 4 mg, Oral, DAILY, 2 doses, First dose on Thu03/15/21 at 0900, Last dose on Thu03/16/21 at 0900, Routine 0849 (Given - Provid er: Rod Weaver RN) gabapentin (Neurontin) capsule 300 mg (COMPLETED) 300 mg, Oral, ONCE, 1 dose, On Pat[place] 03/14/21 at 1130, Administer on arrival in Same Day Program, Day of Surgery (Day of Procedure), Routine 1120 (Given - Provider: Nhi Kapadia RN) gabapentin (Neurontin) capsule 300 mg(Linked Group 1) 300 mg, Oral, NIGHTLY, First dose on 03/16/21 at 2100, Until Discontinued, Routine gabapentin (Neurontin) capsule 600 mg(Linked Group 1) 600 mg, Oral, NIGHTLY, 2 doses, First dose on Paty 03/14/21 at 2215, Last dose on Thu03/15/21 at 2100, Routine 214 (Given - Provider: Dora Salas RN) pantoprazole EC (Protonix) tablet 20 mg 20 mg, Oral, DAILY, First dose on Thu03/15/21 at 0900, Until Discontinued, DO NOT CRUSH OR OPEN 0848 (Given - Provid er: Rod Weaver RN) polyethylene glycoL (Miralax) packet 17 g 17 g, Oral, 2 TIMES DAILY, First dose on Thu03/14/21 at 2215, Until Discontinued, Routine 2154 (Given - Provider: Dora Salas RN) 0900 (Not Given - Provider: Rod Weaver RN - Reason: Patient/family refused) senna-docusate (Pericolace) 8.6-50 mg per tablet 2 tablet 2 tablet, Oral, 2 TIMES DAILY, First dose on Thu03/14/21 at 2215, Until Discontinued, Routine 2154 (Given - Provider: Dora Salas RN) 0848 (Given - Provider: Rod Weaver RN) sodium chloride 0.9 % (flush) flush 5 mL 5 mL, Intravenous, 2 TIMES DAILY, First dose on Thu03/14/21 at 2215, Until Discontinued, Recovery (Recovery-Hospital Unit), Routine 2149 (Given - Provider: Dora Salas RN) 0854 (Given - Provider: Rod Weaver RN) Continuous Medication Order 03/13/2021 03/14/2021 03/15/2021 lactated ringers infusion (CANCELED) 1,000 mL, at 100 mL/hr, Intravenous, CONTINUOUS, Starting on Thu03/14/21 at 1130, Until Thu03/14/21 at 1656, Day of Surgery (Day of Procedure) 1343 (New Bag - Provider: Devin King MD)1551 (New Bag - Provider: Devin King MD) sodium chloride 0.9% infusion 1,000 mL, at 100 mL/hr, Intravenous, CONTINUOUS, Starting on Thu03/14/21 at 1730, Until Thu03/15/21 at 1605, Recovery (Recovery-Hospital Unit) 1728 (New Bag - Provider: Corie Newby RN) 0502 (New Bag - Provider: Dora Salas RN) PRN Medication Order 03/13/2021 03/14/2021 03/15/2021 bisacodyL (Dulcolax) suppository 10 mg 10 mg, Rectal, DAILY PRN, Starting on Paty 03/14/21 at 2125, Until Thu03/15/21 at 1605, Constipation, Administer if needed per patient's routine or if no bowel movement within 48 hours to achieve: (1) One bowel movement every 48 hours, AND (2) without straining. If multiple PRN bowel medications ordered, start with lactulose, then oral bisacodyl, then bisacodyl suppository. Multiple medications may be given concomitantly for constipation., Routine bisacodyl EC (Dulcolax) tablet 10 mg 10 mg, Oral, 2 TIMES DAILY PRN, Starting on Paty 03/14/21 at 2125, Until Thu03/15/21 at 1605, Constipation, DO NOT CRUSH OR OPEN Administer if needed per patient's routine or if no bowel movement within 48 hours to achieve: (1) One bowel movement every 48 hours, AND (2) without straining. If multiple PRN bowel medications ordered, start with lactulose, then oral bisacodyl, then bisacodyl suppository. Multiple medications may be given concomitantly for constipation., Routine BUpivacaine (pf) (Marcaine) (2.5 mg/mL) 0.25% injection (CANCELED) ONCE PRN, Starting on Paty 03/14/21 at 1409, Until Thu03/15/21 at 1605, Intra-Operative (Intra-Procedure), Routine 1409 (Given - Provider: Rod Valdez MD)1540 (Given - Provider: Rod Valdez MD - Comment: joint cocktail 50ml 0.25% marcaine, 50mcg clonidine, 30mg ketorolac) cloNIDine (pf) (Duraclon) (100 mcg/mL) Epidural injection (CANCELED) ONCE PRN, Starting on Paty 03/14/21 at 1540, Until Thu03/15/21 at 1605, Intra-Operative (Intra-Procedure), Routine 1540 (Given - Provider: Rod Valdez MD - Comment: joint cocktail 50ml 0.25% marcaine, 50mcg clonidine, 30mg ketorolac) fentaNYL (PF) (50 mcg/mL) injection 50 mcg (CANCELED) 50 mcg, Intravenous, EVERY 5 MIN PRN, Starting on Paty 03/14/21 at 1111, Until Paty 03/14/21 at 1209, Pain, or prior to injection of local anesthetic., Hold for respiratory rate less than 8 breaths per minute. (maximum dose 200 mcg), Day of Surgery (Day of Procedure), Routine 1158 (Given - Provider: Pablo Phan RN) HYDROmorphone (Dilaudid) (2 mg/mL) multi-dose injection solution 0.2-0.4 mg (CANCELED) 0.2-0.4 mg, Intravenous, EVERY 10 MIN PRN, Starting on Paty 03/14/21 at 1654, Until Paty 03/14/21 at 2111, Pain, Give 0.2 mg every 10 minutes PRN for mild to moderate pain (1-5) Give 0.4 mg every 10 minutes PRN for moderate to severe pain (6-10). Hold for respiratory rate less than 10 per minute. Maximum dose 3 mg over one hour, including OR administration. If multiple pain medications are ordered, start with HYDROmorphone or morphine and use fentaNYL for breakthrough pain., PACU Recovery, Routine 1705 (Given - Provider: Sb Roca RN) ketorolac (Toradol) (15 mg/mL) injection 15 mg 15 mg, Intravenous, EVERY 6 HOURS PRN, Starting on Paty 03/14/21 at 2125, Until Thu03/15/21 at 1605, Pain, Routine ketorolac (Toradol) (30 mg/mL) injection (CANCELED) ONCE PRN, Starting on Paty 03/14/21 at 1540, Until Thu03/15/21 at 1605, Intra-Operative (Intra-Procedure), Routine 1540 (Given - Provider: Rod Valdez MD - Comment: joint cocktail 50ml 0.25% marcaine, 50mcg clonidine, 30mg ketorolac) lidocaine (Xylocaine) 1% (10 mg/mL) injection 3 mg 3 mg (0.3 mL), Subcutaneous, ONCE PRN, 1 dose, Starting on Paty 03/14/21 at 2125, Until Thu03/15/21 at 1605, for discomfort with PIV insertion, Recovery (Recovery-Hospital Unit), Routine midazolam (pf) (Versed) (1 mg/mL) injection 1 mg (CANCELED) 1 mg, Intravenous, EVERY 5 MIN PRN, Starting on Paty 03/14/21 at 1111, Until Paty 03/14/21 at 1209, Sleep, or prior to injection of local anesthetic, Hold for delirium/agitation. (Maximum dose 5 mg)., Day of Surgery (Day of Procedure), Routine 1207 (Given - Provider: Pablo Phan RN) ondansetron (pf) (Zofran) (2 mg/mL) injection 4 mg(Linked Group 2) 4 mg, Intravenous, EVERY 8 HOURS PRN, Starting on Paty 03/14/21 at 2125, Until Thu03/15/21 at 1605, Nausea, May repeat times one in 30 minutes if ineffective. If multiple antiemetics are ordered, use ondansetron first, Recovery (Recovery-Hospital Unit) ondansetron (Zofran) tablet 4 mg(Linked Group 2) 4 mg, Oral, EVERY 8 HOURS PRN, Starting on Paty 03/14/21 at 2125, Until Thu03/15/21 at 1605, Nausea, Vomiting, If multiple antiemetics are ordered, use ondansetron first. PO Preferred. If patient unable to take PO, may give IV if ordered. May repeat times one in 45 minutes if ineffective., Recovery (Recovery-Hospital Unit), Routine oxyCODONE (Roxicodone) tablet 5-15 mg 5-15 mg, Oral, EVERY 4 HOURS PRN, Starting on Paty 03/14/21 at 2125, Until Thu03/15/21 at 1605, Pain, Give 5 mg for mild pain (1-3), 10 mg for moderate pain (4-6) or 15 mg for severe pain (7-10) May give an additional 5 mg in 30 minutes ONCE if pain not relieved., Routine 2155 (Given - Provider: Dora Salas RN) 0453 (Given - Provider: Dora Salas RN) sodium chloride 0.9 % (flush) flush 5-20 mL 5-20 mL, Intravenous, EVERY 1 MIN PRN, Starting on Paty 6/10/21 at 2125, Until Thu03/15/21 at 1605, flush, Flush pertains to all indwelling lines. Flush per protocol found in the job aid using the link provided on this medication record., Recovery (Recovery-Hospital Unit), Routine Linked Groups Order Group 1: gabapentin (Neurontin) capsule 600 mgJump to med 600 mg, Oral, NIGHTLY, 2 doses, First dose on Paty 03/14/21 at 2215, Last dose on Thu03/15/21 at 2100, Routine Followed by gabapentin (Neurontin) capsule 300 mgJump to med 300 mg, Oral, NIGHTLY, First dose on Thu03/16/21 at 2100, Until Discontinued, Routine Group 2: ondansetron (Zofran) tablet 4 mgJump to med 4 mg, Oral, EVERY 8 HOURS PRN, Starting on Paty 03/14/21 at 2125, Until Thu03/15/21 at 1605, Nausea, Vomiting, If multiple antiemetics are ordered, use ondansetron first. PO Preferred. If patient unable to take PO, may give IV if ordered. May repeat times one in 45 minutes if ineffective., Recovery (Recovery-Hospital Unit), Routine Or ondansetron (pf) (Zofran) (2 mg/mL) injection 4 mgJump to med 4 mg, Intravenous, EVERY 8 HOURS PRN, Starting on Paty 03/14/21 at 2125, Until Thu03/15/21 at 1605, Nausea, May repeat times one in 30 minutes if ineffective. If multiple antiemetics are ordered, use ondansetron first, Recovery (Recovery-Hospital Unit) documented in this encounter Care Teams Unemployment Specialist Relationship Specialty Start Date End Date Sari Hay MD [facility] [address] [place] [address] PCP - General 05/21/11 documented as of this encounter
--- OUTSIDE RECORDS SUMMARY | 2024-04-26 15:48 | XMS_ITS | Encounter Summary ---
Author Organization [facility] Address [facility] [place] [address] Care Team Providers Care Final Inspector And Tester Name Role Phone Sari Hay MD Primary Care Provider [phone] Reason for Visit * Auth/Cert Specialty Diagnoses / Procedures Referred By Emmanuel cisneros Referred To Contact Diagnoses Presence of left artificial knee joint Aseptic Loosening Left TKA Procedures PRO REVISE KNEE JOINT REPLACE, ALL PARTS TOTAL KNEE REVISION ARTHROPLASTY, COMPLETE (WRVU 27.11) Referral ID Status Reason Start Date Expiration Date Visits Re quested Visits Authorized [id number] 1 1 Encounter Details Date Type Department Care Team (Late st Contact Info) Description 03/14/2021 1:49 PM EDT Anesthesia Event [place] [address] Devin King MD [facility] [place] [address] Saud Barajas MD [facility] [place] [address] Anesthesia Record Procedure Summary Procedure Name Responsible Anesthesiologist Anesthesia Start Time Anesthesia Stop Time @TOTAL KNEE REVISION ARTHROPLASTY, ONE COMPONENT (WRVU 21.12) (Left: Knee) Devin King MD 03/14/21 1349 03/14/21 1634 Events Date Time Event Comment 03/14/2021 1312 1349 AN Verify 1349 Start 1349 An Start Data 1350 Spinal 1401 Anesthesia Ready 1410 Quick Note LMA placed due to inadequate spinal block. 1410 An Intubation 1458 Break/Relief In I assumed ca re for Break Relief before which we: 1. Identified the patient 2. Identified the responsible provider(s) 3. Reviewed the pertinent medical history 4. Discussed the surgical plan and course 5. Reviewed intra-op anesthesia management and issues during anesthesia 6. Set expectations for the relief (and/or post-procedure) period 7. Allowed opportunity for questions and acknowledgement of understanding Marcia Jimenez, TECHNICAL MAINTENANCE SPECIALIST 1511 Break/Relief Out 1605 Extubation/LMA Out 1623 an stop data 1633 Recovery or ICU Handoff Kecia ent care was transferred to the destination unit staff after review of the patient's medical history, current anesthetic/surgical status and plan, according to the Provider Handoff Checklist. 1634 Stop Meds Name Total BUpivacaine 0.5% 30 mL Midazolam 2 mg fentaNYL 100 mcg Propofol INF 1,414.5 mg ceFAZolin (Ancef) 2 g in dextrose 5% 100 mL infusion 2 g Tranexamic Acid 1,540 mg BUpivacaine 0.75% with Dextrose 15 mg Dexamethasone 8 mg Ondansetron 4 mg sodium chloride 0.9 % (flush) flush 5-20 mL 0 mL lidocaine (Xylocaine) 1% (10 mg/mL) inje ction 3 mg 0 mL tranexamic acid (Cyklokapron ) 1,463 mg in sodium chloride 0.9% 114.63 mL infusion 0 mg BUpivacaine (pf) (Marcaine) (2.5 mg/mL) 0.25% injection 0 mL lactated ringers infusion 1,000 mL * Agents Name O2 Air N2O Sevoflurane (et) O2 Auxiliary Flowmeter 1 * Blood No blood administrations on file. Lines, Drains, and Airways Type Details Placement Removal Incision 10/01/15; foot; 06/02/22 (LDA cleanup utility RA#[id number]); 1715 (LDA cleanup utility RA#[id number]) 10/01/15 0000 by Alma Hutchins RN 06/02/22 1715 by Sae Abdi Incision 02/10/19; 1209; knee ; 06/02/22 (LDA cleanup utility RA#[id number]); 1715 (LDA cleanup utility RA#[id number]) 02/10/19 1209 by Catrina Hutchins RN 06/02/22 1715 by Sae Abdi External Catheter 02/11/19; 1230; external catheter applied; 03/15/21 02/11/19 1230 by Liliana Martinez RN 03/15/21 0000 by Rod Weaver, RN (RETIRED) Peripheral IV Line - Single Lumen 03/14/21; 1152; median vein (underside of arm), left; [id number] catheter system; Anatomical Landmarks; 20 gauge, 1 in length; millicent chavez; tolerated well, intradermal injection; catheter/device intact, removed per physician; 03/15/21; 1250 03/14/21 1152 by Millicent Chavez RN 03/15/21 1250 by Rod eWaver RN Incision 03/14/21; 1409; Left ; knee; Left total knee revision ; 06/02/22 (LDA cleanup utility RA#[id number]); 1715 (LDA cleanup utility RA#[id number]) 03/14/21 1409 by Nuha Garcia RN 06/02/22 1715 by Sae Abdi Supraglottic Mask Ventilation: No t Attempted (0); LMA Type: iGel; LMA Size: 3; Inserted by: Devin King MD; Removal Date: 03/14/21; Removal Time: 1605 03/14/21 1410 by Devin King MD 03/14/21 1605 by Devin King MD documented in this encounter Social History Tobacco [...] OR Notes * Anesthesia Postprocedure Evaluation - Devin King MD - 03/14/2021 4:36 PM EDT Department of Anesthesiology Post-procedure Note Patient: Sissy Eugene Procedure Summary Date: 03/14/21 Room / Location: [facility] OR [facility] MAIN OR Anesthesia Start: 1349 Anesthesia Stop: Procedure: TOTAL KNEE REVISION ARTHROPLASTY, ONE COMPONENT (WRVU 21.12) (Left Knee) Diagnosis: (Aseptic Loosening Left TKA) Surgeons: Rod Valdez MD Responsible Provider: Devin King MD Anesthesia Type: spinal ASA Status: 2 All Anesthesia Providers: Anesthesiologist: Devin King MD Economics Teacher: Osman Rothman MD Vitals Value Taken Time BP 120/82 03/14/21 1630 Temp Pulse 56 03/14/21 1636 Resp 11 03/14/21 1636 SpO2 100 % 03/14/21 1636 Pain Level Vitals shown include unvalidated device data. Patient Location: PACU/MERGED WITH [facility] Level of Consciousness: Conscious but Sleepy Pain Management: Satisfactory Analgesia PONV: None Cardiovascular Status: At Baseline and Hemodynamically Stable Respiratory Status: At Baseline, Supplemental O2 (NC or FM) and Stable Respiratory Status Postoperative Fluid Status: Intravascular EUvolemia Possible Anesthetic Complications: NONE apparent at time of evaluation Final Primary Anesthesia Type: General The Primary Anesthetic Type Changed from the Original (PreOp) Anesthesia Plan: Unsuccessful Regional Block (Technical or Local Anesthetic Failure) Comments: Inadequate spinal at time of incision, converted to GA w/ LMA. Devin King MD * Anesthesia Procedure Notes - Devin King MD - 03/14/2021 2:20 PM EDT Associated Order(s): Neuraxial Block Procedure: Neuraxial Block Primary Anesthetic Type: Spinal The patient was greeted. The sedation plan, its benefits, risks and alternatives were discussed with the patient. The patient has consented to the procedure. The medical history and chart were reviewed. The timeout was performed. Start time: 03/14/2021 1:50 PM End time: 03/14/2021 1:53 PM Patient Location: Block Room Patient Prep Position: Sitting Prep: Hand Hygiene, Hat, Mask, Sterile Gloves, Chlorhexidine and Patient Draped Injection technique: single-shot Skin Anesthetic Lidocaine 1% 3 ml Procedure Technique Level of needle insertion: L3-4 Needle approach: midline Needle Type: [facility] Gauge: 25 Needle length: 3.5 in Number of attempts: 1 Medications: Date/Time: 03/14/2021 1:53 PM BUpivacaine 0.75% with Dextrose, 15 mg Events/Notes Events: None Additional Notes: Spinal performed in block area prior to entering OR. Easy placement, good CSF return, pt tolerated procedure well. Reported appropriate leg heaviness B/L shortly after placement. Resident/TECHNICAL MAINTENANCE SPECIALIST: Osman Rothman MD Second Resident/TECHNICAL MAINTENANCE SPECIALIST: SRNA: Fellow: Attending Physician: Devin King MD ~~~~~~~~~~~~~~~~~~~~~~~~~~~~~~~~~~~~~~~~~~~~~~~~~~~~~~~~~~~~ * Anesthesia Procedure Notes - Saud Barajas - 03/14/2021 12:59 PM EDTAssociated Order(s): Anesthesia Block Anesthesia Block Date/Time: 03/14/2021 12:09 PM Performed by: Saud Barajas MD Authorized by: Zeb Maldonado MD Start Time: 03/14/2021 12:00 PM End Time: 03/14/2021 12:09 PM Patient Location: Block Room The patient was greeted; the risks and benefits of the procedure were reviewed. Indication: Post-op Pain Control Post-op pain management at the request of surgeon. Block Type: Adductor canal block Laterality: Left Position: Supine Prep: Chlorhexidine, patient draped and mask, cap, sterile gloves, hand hygeine Skin Anesthetic: Skin Anesthetic: Lidocaine 1% dose: 5 Block Technique: SonoPlex 21 10 cm Ultrasound Guided: YES and in-plane Ultrasound Image Saved Ultrasound guidance was used to identify the targeted neuronal structure. Ultrasound was also used to identify needle position and to identify tissue (bone, muscle, and blood vessels) to prevent inadvertent intraneural or intravascular needle placement and injection. The spread of local anesthetic was confirmed with live ultrasound imaging.?? Single-Shot: Single-shot Local Anesthetic Volume(s) Injected for Nerve Block: BUpivacaine 0.5%, 30 mL Nerve Sensory/MotorTest: Events: no complications Staff: Fellow:: Saud Barajas MD Attending Physician:: Zeb Maldonado MD Notes: Technically straightforward procedure. No pain or paresthesias noted. * Anesthesia Preprocedure Evaluation - Devin King MD - 03/13/2021 11:09 AM EDT Pre-Anesthesia Evaluation for: Sissy Eugene a 55 y.o. female. Procedure(s): TOTAL KNEE REVISION ARTHROPLASTY, COMPLETE (WRVU 27.11) Patient Active Problem List Diagnosis ??? Closed fracture of distal end [...] EACH performed by Stanley Koo MD at [facility] ??? PRO REVISE KNEE JOINT REPLACE, 1 PART Left 02/10/2019 @TOTAL KNEE REVISION ARTHROPLASTY, ONE COMPONENT (WRVU 21.12) performed by Rod Valdez MD [facility] MAIN OR ??? PRO XFER SINGLE SUPERFICI LOW LEG TENDON Left 10/01/2015 TENDON TRANSFER, ANKLE, SUPERFICIAL performed by Stanley Koo MD at [facility] ??? TISSUE TRANSFER ACL cadaver tissue Social History Tobacco Use ??? Smoking status: Former Smoker Packs/day: 0.50 Years: 15.00 Pack years: 7.50 Types: Cigarettes Quit date: 07/18/2003 Years since quittin.6 ??? Smokeless tobacco: Never Used Substance Use Topics ??? Alcohol use: Yes Alcohol/week: 0.0 standard drinks Comment: less than 1 per week Social History Substance and Sexual Activity Drug Use No Allergies Allergen Reactions ??? Adhesive Itching and [...] lb 0.2 oz) Airway Assessment: Mallampati: II Cardiovascular Assessment: Rhythm: regular Rate: normal Pulmonary Assessment: breath sounds clear to auscultation Dental Assessment: - normal exam Misc Assessment: Patient is wearing No contact(s). IV access: Peripheral line Last Filed Perioperative Cognitive Screening None Anesthesia Plan: ASA 2 spinal, with a(n) intravenous induction 55 y.o., 102 kg female with presenting for left TKA PMH significant for former smoker. Allergies to adhesives (rash) and codeine (nausea). Anesthetic hx: tolerated spinal (2 attempts) and AC for prior TKA. Delayed emergence in remote past, no issues recently. igel 4 Labs: Hgb 13.2, plt 249, K 4.8, Cr 0.78 Anesthetic Plan: Spinal with GA for back up Standard ASA monitoring Adequate IV access preop nerve block adductor canal Agree w/ fellow assessment and plan. Discussed w/ Pt. Devin King MD. Region - Other Informed Consent: Anesthetic plan and risks discussed with patient. Use of blood products discussed with patient who consented to blood products. Plan discussed with resident and fellow. Anesthesia Screening documented in this encounter Miscellaneous Notes * Addendum Note - Zeb Maldonado MD - 03/16/2021 7:52 AM EDT Addendum created 03/16/21 0752 by Zeb Maldonado MD Attestation recorded in Intraprocedure, Cosign clinical note, Flowsheet accepted, Intraprocedure Attestations filed documented in this encounter Plan of Treatment Not on file documented as of this encounter Procedures Procedure Name Priority Date/Time Associated Diagnosis Comments ANE NEURAXIAL APS USE Routine 03/14/2021 1:53 PM EDT ANESTHESIA BLOCK Routine 03/14/2021 12:0 9 PM EDT documented in this encounter Results * Neuraxial Block (03/14/2021 1:53 PM EDT) Narrative Devin Kign MD - 03/14/2021 1:53 PM EDT Devin King MD ? 03/14/2021 ??2:25 PM Procedure: ?? Neuraxial Block Primary Anesthetic Type: Spinal The patient was greeted. The sedation plan, its benefits, risks and alternatives were discussed with the patient. ??The patient has consented to the procedure. ??The medical history and chart were reviewed. ??The timeout was performed. Start time: 03/14/2021 1:50 PM End time: 03/14/2021 1:53 PM Patient Location: Block Room Patient Prep Position: Sitting Prep: Hand Hygiene, Hat, Mask, Sterile Gloves, Chlorhexidine and Patient Draped Injection technique: single-shot Skin Anesthetic Lidocaine 1% ??3 ml Procedure Technique Level of needle insertion: L3-4 Needle approach: midline Needle Type: [facility] Gauge: 25 Needle length: 3.5 in Number of attempts: 1 Medications: Date/Time: ??03/14/2021 1:53 PM BUpivacaine 0.75% with Dextrose, 15 mg Events/Notes Events: ??None Additional Notes: ??Spinal performed in block area prior to entering OR. Easy placement, good CSF return, pt tolerated procedure well. Reported appropriate leg heaviness B/L shortly after placement. ?? Resident/TECHNICAL MAINTENANCE SPECIALIST: ? Stephan, Max W, MD Second Resident/TECHNICAL MAINTENANCE SPECIALIST: SRNA: ? Fellow: ? Attending Physician: ? Devin King MD ~~~~~~~~~~~~~~~~~~~~~~~~~~~~~~~~~~~~~~~~~~~~~~~~~~~~~~~~~~~~ Devin King MD CORPORATE MANAGER [facility] * Anesthesia Block (03/14/2021 12:09 PM EDT) Narrative Zeb Maldonado MD - 03/14/2021 12:09 PM EDT Saud Barajas MD ? 03/14/2021 ??1:00 PM Anesthesia Block Date/Time: 03/14/2021 12:09 PM Performed by: Saud Barajas MD Authorized by: Zeb Maldonado MD Start Time: ??03/14/2021 12:00 PM End Time: ??03/14/2021 12:09 PM Patient Location: ??Block Room The patient was greeted; the risks and benefits of the procedure were reviewed. ?? Indication: ??Post-op Pain Control Post-op pain management at the request of surgeon. ?? Block Type: ??Adductor canal block Laterality: ??Left Position: ??Supine Prep: ??Chlorhexidine, patient draped and mask, cap, sterile gloves, hand hygeine Skin Anesthetic: ??Skin Anesthetic: ??Lidocaine 1% ??dose: ??5 Block Technique: ?? SonoPlex ?? 21 ?? [...] local anesthetic was confirmed with live ultrasound imaging.?Single-Shot: ??Single-shot Local Anesthetic Volume(s) Injected for Nerve Block: ?? BUpivacaine 0.5%, 30 mL Nerve Sensory/MotorTest: ??Events: no complications ?? Staff: ??Fellow:: ??Saud Barajas MD ??Attending Physician:: ??Zeb Maldonado MD Notes: ?? Technically straightforward procedure. No pain or paresthesias noted. Zeb Maldonado MD CORPORATE MANAGER [facility] documented in this encounter Visit Diagnoses Not on filedocumented in this encounter Administered Medications Inactive Administered Medications - up to 3 most recent administrations Medication Order MAR Action Action Date Dose Rate Site BUpivacaine (pf) (Marcaine) (5 mg/mL) 0.5% injection Perineural, Starting on Paty 03/14/21 at 1209, Until Paty 03/14/21 at 1209, Anesthesia Intra-op, Routine Given 03/14/2021 12:09 PM EDT 30 mLs BUpivacaine (pf) (Sensorcaine) (7.5 mg/mL) 0.75% in dextrose 8.25% INTRATHECAL injection Intrathecal, Starting on Paty 03/14/21 at 1353, Until Paty 03/14/21 at 1353, Anesthesia Intra-op, Routine Given 03/14/2021 1:53 PM EDT 15 mg ceFAZolin (Ancef) 2 g in dextrose 5% 100 mL infusion 2 g, Intravenous, EVERY 3 HOURS, 1 dose, First dose on Paty 03/14/21 at 1130, Administer over 30 Minutes, Redose after 3 hours., Intra-Operative (Intra-Procedure), Indication for (Active or Suspected): Prophylaxis Given 03/14/2021 1:49 PM EDT 2 g dexamethasone (Decadron) injection Intravenous, PRN, Starting on Paty 03/14/21 at 1433, Until Paty 03/14/21 at 1638, Anesthesia Intra-op, Routine Given 03/14/2021 2:33 PM EDT 8 mg fentaNYL (pf) (50 mcg/mL) multi-dose injection Intravenous, PRN, Starting on Paty 03/14/21 at 1417, Until Paty 03/14/21 at 1638, Anesthesia Intra-op, Routine Given 03/14/2021 2:33 PM EDT 50 mcg Given 03/14/2021 2:17 PM EDT 50 mcg lactated ringers infusion 1,000 mL, at 100 mL/hr, Intravenous, CONTINUOUS, Starting on Paty 03/14/21 at 1130, Until Paty 03/14/21 at 1656, Day of Surgery (Day of Procedure) New Bag 03/14/2021 3:51 PM EDT New Bag 03/14/2021 1:43 PM EDT midazolam (pf) (Versed) (1 mg/mL) multi-dose injection Intravenous, PRN, Starting on Paty 03/14/21 at 1349, Until Paty 03/14/21 at 1638, Anesthesia Intra-op, Routine Given 03/14/2021 1:43 PM EDT 2 mg ondansetron (pf) (Zofran) (2 mg/mL) injection Intravenous, PRN, Starting on Paty 03/14/21 at 1433, Until Paty 03/14/21 at 1638, Anesthesia Intra-op, Routine Given 03/14/2021 3:43 PM EDT 4 mg propofoL (Diprivan) infusion Intravenous, CONTINUOUS PRN, Starting on Paty 03/14/21 at 1349, Until Paty 03/14/21 at 1638, Anesthesia Intra-op, Routine New Bag 03/14/2021 1:49 PM EDT 100 mcg/kg/min 61.5 mL/hr tranexamic acid (Cyklokapron) (100 mg/mL) IV bolus Intravenous, Administer over 8 Hours, PRN, Starting on Paty 03/14/21 at 1349, Until Paty 03/14/21 at 1638, Anesthesia Intra-op, Routine Given 03/14/2021 1:49 PM EDT 1,540 mg documented in this encounter Care Teams Final Inspector And Tester Relationship Specialty Start Date End Date Sari Hay MD [facility] [address] [place] [address] PCP - General 05/21/11 documented as of this encounter
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
--- OUTSIDE RECORDS SUMMARY | 2024-04-26 15:48 | XMS_ITS | Encounter Summary ---
Author Organization [facility] [place] [address] Care Team Providers Care Dietetic Intern Name Role Phone Sari Hay MD Primary Care Provider [phone] Encounter Details Date Type Department Care Team (Latest Contact Info) Description 03/05/2021 2:00 PM EDT Clinical Support Same Day at [facility] [place] [address] Status post left knee replacement; Mechanical loosening of internal left knee prosthetic joint, subsequent encounter; Pain of left lower extremity Social History Tobacco Use Types [...] - - Weight 102.5 kg (226 lb) 03/05/2021 1:59 PM EDT Height 177.8 cm (5' 10) 03/05/2021 1:59 PM EDT Body Mass Index 32.43 03/05/2021 1:59 PM EDT documented in this encounter Progress Notes * Phong Hilario RN - 03/05/2021 2:00 PM EDT PAT questionnaire reviewed with patient while in Pre Admission testing. Pre- operative instruction booklet reviewed. Patient verbalizes a good understanding of all information reviewed. PLAN: Testing: Labs T&S Special medication instructions: Clearfast 1 bottle given to patient with instructions to drink 3 hours prior to surgery. Procedure date: 03/14/21 Dr. Valdez Pre Surgery Covid screening: Were you diagnosed with COVID 19 or had symptoms consistent with COVID19 within the last 3 months. No * Phong Hilario RN - 03/05/2021 2:00 PM EDT documented in this encounter Plan of Treatment Not on file documented as of this encounter Procedures Procedure Name Priority Date/Time Associated Diagnosis Comments TYPE AND SCREEN VALIDITY Routine 03/05/2021 2:39 PM EDT ABORH RECHECK STATUS Routine 03/05/2021 2:39 PM EDT HEMOGRAM Routine 03/05/2021 2:39 PM EDT Status post left knee replacement Mechanical loosening of internal left knee prosthetic joint, subsequent encounter Pain of left lower extremity DIFFERENTIAL, AUTOMATED Routine 03/05/2021 2:39 PM EDT Status post left knee replacement Mechanical loosening of internal left knee prosthetic joint, subsequent encounter Pain of left lower extremity HC ANTIBODY DETECTION,CAPTURE-R Routine 03/05/2021 2:39 PM EDT Status post left knee replacement Mechanical loosening of internal left knee prosthetic joint, subsequent encounter Pain of left lower extremity ABO/RH TYPING Routine 03/05/2021 2:39 PM EDT Status post left knee replacement Mechanical loosening of internal left knee prosthetic joint, subsequent encounter Pain of left lower extremity HC VENIPUNCTURE Routine 03/05/2021 2:39 PM EDT Status post left knee replacement Mechanical loosening of internal left knee prosthetic joint, subsequent encounter Pain of left lower extremity HC PROTHROMBIN TIME Routine 03/05/2021 2 :39 PM EDT Status post left knee replacement Mechanical loosening of internal left knee prosthetic joint, subsequent encounter Pain of left lower extremity HC CBC,PLT & AUTO DIFF Routine 03/05/2021 2:39 PM EDT Status post left knee replacement Mechanical loosening of internal left knee prosthetic joint, subsequent encounter Pain of left lower extremity ANTIBODY SCREEN Routine 03/05/2021 2:39 PM EDT Status post left knee replacement Mechanical loosening of internal left knee prosthetic joint, subsequent encounter Pain of left lower extremity BASIC METABOLIC PANEL (NON-FASTING) Routine 03/05/2021 2:39 PM EDT Status post left knee replacement Mechanical loosening of internal left knee prosthetic joint, subsequent encounter Pain of left lower extremity documented in this encounter Results * Type and Screen Validity (03/05/2021 2:39 PM EDT) T&S only valid at [facility] LABORATORY Comment:This Type and Screen result is only valid at the [facility] Blood 03/05/2021 2:39 PM EDT 03/05/2021 2:47 PM EDT Narrative Resulting Agency Comment Spec In Lab Rod Valdez MD BLOOD BANK LAB ORDER DEVAN Performing Organization Address City/[facility]/ZIP Co de Phone Number [facility] [place] [address] * ABORH Recheck Status (03/05/2021 2:39 PM EDT) ABORH Type Recheck Completed [facility] Blood 03/05/2021 2:39 PM EDT 03/05/2021 2:47 PM EDT Narrative Resulting Agency Comment Spec In Lab Rod Valdez MD BLOOD BANK LAB ORDER DEVAN [facility] [place] [address] * Antibody screen (03/05/2021 2:39 PM EDT) Ab Screen Interp Negative [facility] Expires at [id number] on: 03/17/2021 [facility] Blood 03/05/2021 2:39 PM EDT 03/05/2021 2:47 PM EDT Narrative Resulting Agency Comment Spec In Lab Rod Valdez MD BLOOD BANK LAB ORDER DEVAN [facility] [place] [address] * Differential, Automated (03/05/2021 2:39 PM EDT) Pathologist [facility] Neutrophils % 53.4 % [facility] Neutr Abs (ANC) 3.69 1.70 - 6.10 x10(3)/[facility] LABORATORY Lymphocytes % 35.7 % [facility] Lymphocytes Abs 2.5 0.9 - 3.2 x10(3)/[facility] LABORATORY Monocytes % 7.5 % [facility] Monocyte Abs 0.5 0.3 - 0.9 x10(3)/[facility] LABORATORY Eosinophils % 2.3 % [facility] Eosinophils Abs 0.2 0.0 - 0.4 x10(3)/[facility] LABORATORY Basophils % 1.0 % [facility] Basophils Abs 0.1 0.0 - 0.1 x10(3)/[facility] LABORATORY Immature Gran % 0.10 % [facility] Comment: Immature granulocytes(IG's)percentage and absolute count will include metamyelocytes, myelocytes, and promyelocytes. Blood smears from CBCs yielding IG's will be scanned manually for concordance. If this scan disagrees with the automated IG or if promyelocytes are noted, a manual differential will be performed. Lorrie Gran Abs 0.01 0.00 - 0.04 x10(3)/[facility] LABORATORY Blood 03/05/2021 2:39 PM EDT 03/05/2021 2:50 PM EDT Narrative Resulting Agency Comment Spec In Lab Rod Valdez MD HEMATOLOGY ORDERABLE S Performing Organization Address City/[facility]/ZIP Co de Phone Number [facility] [place] [address] * ABO/Rh Typing (03/05/2021 2:39 PM EDT) ABORH Type A Pos [facility] Blood 03/05/2021 2:39 PM EDT 03/05/2021 2:47 PM EDT Narrative Resulting Agency Comment Spec In Lab Rod Valdez MD BLOOD BANK LAB ORDER DEVAN Performing Organization Address City/[facility]/ZIP Co de Phone Number [facility] [place] [address] * Hemogram (03/05/2021 2:39 PM EDT) WBC 6.9 4.0 - 9.5 x10(3)/[facility] LABORATORY RBC 4.45 4.00 - 5.21 x10(6)/[facility] LAB[facility] Hemoglobin 13.2 11.7 - 15.5 gm/dL [facility] Hematocrit 40.3 35.7 - 45.8 % [facility] MCV 90.6 82.6 - 94.4 fL [facility] MCH 29.7 27.1 - 32.0 pg [facility] MCHC 32.8 31.7 - 35.0 gm/dL [facility] Platelets 249 145 - 357 x10(3)/[facility] LABORATORY RDWSD 40.9 37.0 - 46.0 fL [facility] RDWCV 12.5 11.5 - 14.1 % [facility] MPV 10.0 7.6 - 12.9 fL [facility] nRBC % Auto 0.0 % [facility] nRBC Abs Auto 0.000 0.000 - 0.000 x10(3)/mcL [facility] Blood 03/05/2021 2:39 PM EDT 03/05/2021 2:50 PM EDT Narrative Resulting Agency Comment Spec In Lab Rod Valdez MD HEMATOLOGY ORDERABLE S [facility] [place] [address] * (ABNORMAL) Basic Metabolic Panel (non-fasting) (03/05/2021 2:39 PM EDT) Glucose Lvl 89 65 - 199 mg/dL [facility] Comment:Diabetes: >=200 mg/d L plus symptoms BUN 19(H) 8 - 18 mg/dL [facility] Creatinine 0.78 0.70 - 1.20 mg/dL [facility] Sodium 143 135 - 145 mmol/L [facility] Potassium 4.8 3.5 - 5.0 mmol/L [facility] Comment: Please note: ??Patients with WBC >100,000 may have falsely elevated Potassium levels. ??For accurate Potassium quantification in these patients send serum separator tube (gold top) for subsequent determinations. ??Contact the Clinical Chemistry Laboratory if there are any questions. Chloride 106 98 - 107 mmol/L [facility] CO2 28 22 - 31 mmol/L [facility] Anion Gap 9 5 - 15 mmol/L [facility] Calcium 10.1 8.5 - 10.5 mg/dL [facility] Estimated GFR 84 >=60 mL/min/1. 73 m?? [facility] Comment: This patient? s estimated glomerular filtration rate (eGFR) is between 84 mL/min/1.73 m2 (patients with less muscle mass) and 98 mL/min/1.73 m2 (patients with more muscle mass) [...] and symptoms in addition to eGFR. Blood 03/05/2021 2:39 PM EDT 03/05/2021 2:50 PM EDT Narrative Resulting Agency Comment Spec In Lab Rod Valdez MD CHEMISTRY ORDERABLES Performing Organization Address [facility] de Phone Number [facility] [place] [address] * Prothrombin Time (03/05/2021 2:39 PM EDT) PT 10.7 9.4 - 12.5 sec [facility] INR 0.9 [facility] Comment: An INR <2.0 indicates adequate procoagulant activity for hemostasis in most patients without underlying bleeding disorders, though the INR may not adequately reflect hemostatic capacity in patients with liver disease and synthetic impairment. The recommended target INR range for therapeutic anticoagulation is 2.0 ? 3.0 for most applications, though lower and higher ranges may be appropriate depending on clinical circumstances. Blood 03/05/2021 2:39 PM EDT 03/05/2021 2:50 PM EDT Narrative Resulting Agency Comment Spec In Lab Rod Valdez MD HEMATOLOGY ORDERABLE S Performing Organization Address [facility] Co de Phone Number [facility] [place] [address] * APTT (03/05/2021 2:39 PM EDT) PTT 32 25 - 37 sec [facility] Comment: The PTT is NOT appropriate for heparin monitoring. Use the Anti-Xa level for heparin monitoring (HEP UFH) or LMWH monitoring (HEP LMW). A PTT less than 37 seconds generally indicates adequate hemostasis. Blood 03/05/2021 2:39 PM EDT 03/05/2021 2:50 PM EDT Narrative Resulting Agency Comment Spec In Lab Rod Valdez MD HEMATOLOGY ORDERABLE S [facility] [place] [address] documented in this encounter Visit Diagnoses Diagnosis Status post left knee replacement Mechanical loosening of internal left knee prosthetic joint, subsequent encounter Pain of left lower extremity documented in this encounter Care Teams Dietetic Intern Relationship Specialty Start Date End Date Sari Hay MD [address] [place] [address] PCP - General 05/21/11 documented as of this encounter
--- OUTSIDE RECORDS SUMMARY | 2024-04-26 15:48 | XMS_ITS | Encounter Summary ---
Author Organization [facility] Address [facility] [place] [address] Care Team Providers Care Petroleum Inspector Supervisor Name Role Phone Sari Hay MD Primary Care Provider [phone] Reason for Visit * Reason Comments Follow-up XR03/14/21 REVISIO N LEFT TKA Encounter Details Date Type Department Care Team (Late st Contact Info) Description 04/11/2021 11:30 AM EDT [place] [address] Teressa Taylor PA [facility] [place] [address] S/P revision of total knee, left Social [...] Sign Reading Time Taken Comments Blood Pressure 117/83 04/11/2021 11:02 AM EDT Pulse 63 04/11/2021 11:02 AM EDT Temperature - - Respiratory Rate - - Oxygen Saturation - - Inhaled Oxygen Concentration - - Weight 102.5 kg (226 lb) 04/11/2021 11:02 AM EDT Height 177.8 cm (5' 10) 04/11/2021 11:02 AM EDT Body Mass Index 32.43 04/11/2021 11:02 AM EDT documented in this encounter Progress Notes * Teressa Taylor PA - 04/11/2021 11:30 AM EDT Arthroplasty/Orthopaedic History: 1. 5 ([facility]) LEFT TKA revision, joint infection 2. 03/14/21 ([facility]) LEFT TKA revision, aseptic loosening. Femur and patella retained, revised tibial component HPI: Sissy Eugene is a very pleasant 55 y.o. year-old female and is now 1 month post left totalknee revision The patient has been doing really well. This has been night and day since prior. His PT has been really helping. She is working with them twice per week. . No fevers, chills, nausea, vomiting, or symptoms of infection. She only got 3 hours of sleep last night. She has called several times. Throughout the night with the zinging pain from anterior aspect of the knee. She was taking 300 mg gabapentin 1 at bedtime and one a few hours later. She was prescribed however 1 300 mg gabapentin to be taken as needed nightly. She had called for refill and we discussed our concerns with her in creasing her dosage. We told her we would like her to go back to the prescribed dosage to see how things went and would follow-up at today's hospital check. She has been doing this. She feels that itis sporadically helping her. She continues to wake many times throughout the night and is unable tostay asleep. At this point she is taking about a milligrams Tylenol at night and 400 mg ibuprofen da gustavo. Sissy has been ambulating with no assistive devices. She is been working hard with physical therapy. Currently she estimates her range of motion is 0-1 07. She is hoping to get to 130 degrees flexion. She does not normally take anything for sleep. Has taken Ambien in the past. This didn't really work well. ROS: Denies: fever, chills, night sweats, nausea, or vomiting Blood pressure 117/83, pulse 63, height 177.8 cm (5' 10), weight 102.5 kg (226 lb). Physical Exam: Well-appearing female in no acute distress. Alert and Oriented x 3 and answers all questions appropriately. The incision is well healed, with no signs of infection. Post Op Right Knee Exam: (ROM intraoperatively 0-120) Knee ROM: Extension:0 Flexion: 115 Alignment: 0-4 degrees Neutral Stability: A/P Translation [...] subsidence, loosening, or periprosthetic complication. Questionnaire Responses: [facility] Surgical Postop Visit 03/06/2021 PROMIS-10 General Health Very Good PROMIS-10 Quality of Life Very Good PROMIS-10 Physical Health Good PROMIS-10 Mental Health Very Good PROMIS-10 Social Activity Very Good PROMIS-10 Everyday Activities Mostly PROMIS-10 Pain 4 PROMIS-10 Fatigue Mild PROMIS-10 Social Roles Very Good PROMIS-10 Anxious or Depressed Never PROMIS PHYSICAL HEALTH SCORE 44.9 PROMIS MENTAL HEALTH SCORE 56 KOOS JR Scores 54.84 Problems with surgical incision/wound after surgery - Gone to ER since knee surgery - Where was ER located? - Date of ER visit - Reason for ER visit - Admitted to hospital since recent ortho surgery - Additional surgery on same body part - Hospital - Surgeon - Date of surgery - Reason for surgery - TKA Grade 3 Pain in other KNEE None Back pain at this moment None Satisfaction with Treatment - Choose Same Treatment Again - Employment status before injury - Returned to previous employment - Working at same capacity as before injury - Spending time in inpatient rehab facility - Rate overall condition today - [facility] Response 03/06/2021 KOOS JR Scores 54.84 [facility] Response 03/06/2021 KOOS JR Scores 54.84 ASSESSMENT/PLAN: Ms. Eugnee is a 55 y.o. year old female status post right total knee replacement. Doing well postoperatively. We discussed the gabapentin dosage. Currently she is taking 300 mg nightly as needed. She is continuing to have significant difficulty with sleeping. We elected to have her go back to two 300 mg tablets nightly as needed. She will try this for a week or so and then start to wean down to 1 300 mg tablet nightly as needed. She will call for refill if needed. She questions if insurance will reimburse her for her prescription as they do not pay for the last prescription due to her taking the prescription not as recommended. I am unsure how this will be effective. She may need to pay for this out of pocket. Her last prescription was under $15. We did discuss that her range of motion intraoperatively was 0-1 20. She is certainly free to work with physical therapy to attempt to get beyond this however they should not be aggressive. Five degrees beyond this would be reasonable. Continue weightbearing as tolerated and working on range of motion. We will see her back in 1 yearsfor repeat examination. X-rays will be needed at that time. Patient may return to normal activitiesas her pain and function allow. We discussed the appropriate precautions surrounding dental prophylaxis; according to the AAOS Appropriate Use Criteria we do recommend antibiotic use prior to dental procedures for Sissy. Recommended antibiotic: Amoxicillin (50mg/kg, maximum 2 gm) 1 hour prior to dental work; dose: 2gm If Sissy has any changes in health status we recommend she contact our office prior to dental procedures for updated recommendations We also discussed maintaining good foot care and giving prompt attention to any source of infectionthroughout the body including foot ulcers and urinary tract infections. All questions were answered. Signed: GANESH Castle 04/10/2021 documented in this encounter Plan of Treatment Not on file documented as of this encounter Visit Diagnoses Diagnosis S/P revision of total knee, left documented in this encounter Care Teams Petroleum Inspector Supervisor Relationship Specialty Start Date End Date Sari Hay MD [address] [place] [address] PCP - General 05/21/11 documented as of this encounter
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
--- OUTSIDE RECORDS SUMMARY | 2024-04-26 15:48 | XMS_ITS | Encounter Summary ---
Author Organization [facility] Address [facility] [place] [address] Care Team Providers Care Tractor Operator Laser Leveling Name Role Phone Sari Hay MD Primary Care Provider [phone] Encounter Details Date Type Department Care Team (Late st Contact Info) Description 05/30/2021 Ancillary Procedure [place] [address] Sari Hay MD [facility] [address] [place], [place] [id number] Social History Tobacco Use Types Packs/Day Years [...] Procedure Name Priority Date/Time Associated Diagnosis Comments FILM LIBRARY STORAGE ONLY DX LOWER EXTREMITY Routine 05/30/2021 12:00 AM EDT documented in this encounter Results * Film Library- Storage Only DX Lower Extremity (05/30/2021 12:00 AM EDT) Narrative [facility] - 06/19/2021 10:35 AM EDT This exam is auto-finalizing. It's purpose is for storage only. Sari Hay MD [facility] FILM LIBRARY ORD ERABLES [place], [place] documented in this encounter Visit Diagnoses Not on filedocumented in this encounter Care Teams Tractor Operator Laser Leveling Relationship Specialty Start Date End Date Sari Hay MD [address] [place] [address] [facility] [address] [place] [address] PCP - General 05/21/11 documented as of this encounter
--- OUTSIDE RECORDS SUMMARY | 2024-04-26 15:48 | XMS_ITS | Encounter Summary ---
Author Organization [facility] [place] [address] Care Team Providers Care Hydrate Thickener Operator Name Role Phone Sari Hay MD Primary Care Provider [phone] Reason for Visit * Reason Onset Date Comments Questions 03/13/2021 Encounter Details Date Type Department Care Team (Late st Contact Info) Description 03/13/2021 Telephone [place] [address] Robert Cornell Questions Social History Tobacco Use Types Packs/Day [...] encounter Miscellaneous Notes * Telephone Encounter - Robert Cornell - 03/13/2021 8:56 AM EDT Sissy Eugene calls today before her surgery with Dr. Valdez Scheduled for L TKA Revision DOS: 03/13/21. She has multiple questions before he surgery. 1.) When should she drink her Clearfast: This should be consumed the night before surgery 2.) She would like to have crutches vs. Walker: Order placed so her may pick-up crutches while she is in surgery. 3.) She has not heard back about her COVID testing: Informed patient that COVID testing is no longer needed for asymptomatic patients. She is also vaccinated. 4.) She would like to know the plan for discharge VNA and medications, she would like first rx sentto pharmacy: VNA will be set up by discharging team, and she can have her medications sent to [facility] for easy pick-up. Finally she will be receiving a call later today with instructions regarding her surgery tomorrow. She understands and agrees with this plan. P: [phone] Crutches ordered documented in this encounter Plan of Treatment Not on file documented as of this encounter Visit Diagnoses Diagnosis Mechanical loosening of internal left knee prosthetic joint, subsequent encounter documented in this encounter Care Teams Hydrate Thickener Operator Relationship Specialty Start Date End Date Sari Hay MD [address] [place] [address] PCP - General 05/21/11 documented as of this encounter
--- OUTSIDE RECORDS SUMMARY | 2024-04-26 15:48 | XMS_ITS | Encounter Summary ---
Author Organization [facility] Address [facility] [place] [address] Care Team Providers Care Applications Project Manager Name Role Phone Sari Hay MD Primary Care Provider [phone] Reason for Visit * Reason Comments Pre-op Exam CASE REQ 03/14/21 REV ISION LEFT TKA Encounter Details Date Type Department Care Team (Late st Contact Info) Description 03/06/2021 11:00 AM EDT Office [place] [address] Rod Valdez MD [facility] [place] [address] Mechanical loosening of internal left knee prosthetic joint, subsequent encounter Social History Tobacco Use Types Packs/Day [...] Sign Reading Time Taken Comments Blood Pressure 124/80 03/06/2021 10:43 AM EDT Pulse 46 03/06/2021 10:43 AM EDT Temperature - - Respiratory Rate - - Oxygen Saturation - - Inhaled Oxygen Concentration - - Weight 102.5 kg (226 lb) 03/06/2021 10:43 AM EDT Height 177.8 cm (5' 10) 03/06/2021 10:43 AM EDT Body Mass Index 32.43 03/06/2021 10:43 AM EDT documented in this encounter Progress Notes * Marina Quintero RN - 03/06/2021 11:00 AM EDT Arthroplasty History/Previous Orthopaedic Surgery: 1. Left TKA??09/29/17??outside facility.?? 2. Left TKA polyswap 02/10/19 ([facility]) This note is recorded by Marina Quintero, RN acting as a scribe for Dr. Sonya Valdez. PREOPERATIVE VISIT Interval History: Sissy Eugene is a pleasant 55 y.o. year old female being seen today to discuss a left total knee revision . Her history was once again discussed and is outlined in a previous note. They have reviewed their options and at this point are expressing a desire to proceed with surgery. Physical Exam: Exam is previously documented in a note and is essentially unchanged. Knee Exam: Range of motion 5-105 o. Inspection of her skin on the [...] radius with routine healing, DOI: 09/05/2019 S52.502D VITALS: BP Readings from Last 1 Encounters: 03/06/21 124/80 Pulse Readings from Last 1 Encounters: 03/06/21 (!) 46 Height: 177.8 cm (5' 10) Weight: 102.5 kg (226 lb) Body mass index is 32.43 kg/m??. Relevant Lab Studies Lab Results Component Value Date WBC 6.9 03/05/2021 HGB 13.2 03/05/2021 HCT 40.3 03/05/2021 PLATELET 249 03/05/2021 CREATININE 0.78 03/05/2021 BUN 19 (H) 03/05/2021 NA 143 03/05/2021 K 4.8 03/05/2021 CRP 2.6 09/03/2020 SEDRATE 17 09/03/2020 INR 0.9 03/05/2021 No results for input(s): HA1C in the last 7068 hours. No results for input(s): ALBUMIN in the last 168 hours. Estimated Creatinine Clearance: 103.1 mL/min (based on SCr of 0.78 mg/dL). TJA Clotting and Bleeding Assessment Genetic predisposition [...] Total joint preparedness for surgery: Received binder, 1:1 Patient understands when to call the office pre-op and post-op: Verbalizes understanding Assistive device(s) used pre-op: None Patient currently on narcotics: No Patient has narcotic agreement signed: No Assessment and Plan: This is a pleasant 55 y.o. year-old female who presents for a preoperative appointment today for consideration of a left total knee revision . We had a discussion regarding the risks and benefits of surgery. I indicated that in my opinion, this is a treatment option most likely to restore a more normal, pain- free level of function and that [...] for scanning to chart. Opioid Risk Assessment 03/06/2021 DAST-10 Risk Assessment None (0) Some recent data might be hidden Opioid PDMP 03/06/2021 02/10/2019 [place] PDMP Query Date 03/06/2021 02/15/2019 [place] PDMP Query Date 03/06/2021 02/15/2019 [place] PDMP Query Date 03/06/2021 02/15/2019 In addition to this medication, [...] where referrals are placed patient lives in [place], no preference on VNA. The patient prefers two-wheeled walker to help with post-operative ambulation. A DME order has beenplaced. Recommendations from Dr. Garrett: Pending Note Post [...] informed consent was subsequently obtained for a left total knee revision . I have personally evaluated the patient and agree with the above note as recorded by ODIN Matias MD 03/06/2021 documented in this encounter Plan of Treatment Not on file documented as of this encounter Visit Diagnoses Diagnosis Mechanical loosening of internal left knee prosthetic joint, subsequent encounter documented in this encounter Administered Medications Inactive Administered Medications - up to 3 most recent administrations Medication Order MAR Action Action Date Dose Rate Site mupirocin (BACTROBAN) 2 % ointment 1 each 1 each, Topical (Top), 2 TIMES DAILY, First dose on Thu03/06/21 at 1045, 10 doses, Last dose on Thu03/10/21 at 2100, Apply two times daily to nares for 5 days prior to surgery Given 03/06/2021 11:27 AM EDT 1 each documented in this encounter Care Teams Applications Project Manager Relationship Specialty Start Date End Date Sari Hay MD [address] [place] [address] PCP - General 05/21/11 documented as of this encounter
--- OUTSIDE RECORDS SUMMARY | 2024-04-26 15:48 | XMS_ITS | Encounter Summary ---
Author Organization [facility] [place] [address] Care Team Providers Care Manager Vehicle Name Role Phone Sari Hay MD Primary Care Provider [phone] Reason for Visit * Reason Onset Date Comments Medication Refill 03/29/2021 Medication Refill 04/01/2021 Encounter Details Date Type Department Care Team (Late st Contact Info) Description 03/29/2021 [place] [address] Rod Valdez MD [facility] [address] [place] [address] S/P revision of total knee, left Social [...] as of this encounter Miscellaneous Notes * Addendum Note - Frankie Emerson RMA - 04/01/2021 5:11 PM EDTAddended by: FRANKIE EMERSON on: 04/01/2021 05:11 PM Modules accepted: Orders * Telephone Encounter - Frankie Emerson RMA - 03/29/2021 2:42 PM EDT Medication Refill Request Surgery/Injury/Provider: [facility] Left TKA revision 03/14/21 Medication being requested: Gabapentin 300mg Query: Last refill or Original Rx: 03/15/2021 Seen within 30 days (if no, than when): 03/14/21 Follow Up: 04/11/21 How is this medication being used currently: 1 before bed and sometimes 1 at 3am when she wakes up from burning nerve pain Pain level: low at rest, about 5/10 during/after moving around Other pain medications used and how: Tylenol: 100mg in am Naproxen: 440mg in pm Requested Prescription to be sent electronically to [facility] of [place], [place] (location). Prescription prepped and pended for Marissa Taylor (provider) review. The patient knows how to contact orthopaedics if any further questions or concerns occur. * Telephone Encounter - Frankie Emerson RMA - 03/29/2021 1:38 PM EDT Called and left a message for patient to call back to discuss medications. documented in this encounter Plan of Treatment Not on file documented as of this encounter Visit Diagnoses Diagnosis S/P revision of total knee, left documented in this encounter Care Teams Manager Vehicle Relationship Specialty Start Date End Date Sari Hay MD [address] [place] [address] PCP - General 05/21/11 documented as of this encounter
--- OUTSIDE RECORDS SUMMARY | 2024-04-26 15:48 | XMS_ITS | Encounter Summary ---
Author [facility] [place] [address] Care Team Providers Care Insurance Office Supervisor Name Role Phone Sari Hay MD Primary Care Provider [phone] Reason for Visit * Reason Onset Date Comments Medication Refill 03/29/2021 Encounter Details Date Type Department Care Team (Late st Contact Info) Description 03/29/2021 Telephone [place] [id number] Roebrt Cornell Medication Refill Social History Tobacco Use Types Packs/Day Years [...] * Telephone Encounter - Robert Cornell - 03/29/2021 11:51 AM EDT Sissy Eugene is a 55 y.o. female who is s/p L TKA Revision DOS: 03/14/[address] Valdez. She calls today to report that she is running low on the gabapentin. She has been taking one at night approximately one hour before bedtime which helps control her nerve pain till about 2-3am, at which time she is usually awoken by the pain and needs to take a second dose. She is otherwise healing and recovering well. She was connected to the refill line to place refill request. P: [phone] documented in this encounter Plan of Treatment Not on file documented as of this encounter Visit Diagnoses Not on filedocumented in this encounter Care Teams Insurance Office Supervisor Relationship Specialty Start Date End Date Sari Hay MD [facility] [address] [facility] [address] [place] [address] PCP - General 05/21/11 documented as of this encounter
--- OUTSIDE RECORDS SUMMARY | 2024-04-26 15:48 | XMS_ITS | Encounter Summary ---
Author Organization [facility] Address [facility] [place] [address] Care Team Providers Care Lime Puller Name Role Phone aSri Hay MD Primary Care Provider [phone] Reason for Visit * Auth/Cert Specialty Diagnoses / Procedures Referred By Emmanuel t Referred To Contact Diagnoses Presence of left artificial knee joint Aseptic Loosening Left TKA Procedures PRO REVISE KNEE JOINT REPLACE, ALL PARTS TOTAL KNEE REVISION ARTHROPLASTY, COMPLETE (WRVU 27.11) Referral ID Status Reason Start Date Expiration Date Visits Re quested Visits Authorized [id number] 1 1 Encounter Details Date Type Department Care Team (Late st Contact Info) Description 03/14/2021 12:31 PM EDT - 03/14/2021 4:01 PM EDT [place] [id number] Rod Valdez MD [facility] [place] [address] @TOTAL KNEE REVISION ARTHROPLASTY, ONE COMPONENT (WRVU 21.12) Social History Tobacco Use Types Packs/Day Years [...] Sign Reading Time Taken Comments Blood Pressure 130/83 03/14/2021 1:00 PM EDT Pulse 39 03/14/2021 1:00 PM EDT Temperature 36.5 ??C (97.7 ??F) 03/14/2021 11:10 AM E DT Respiratory Rate 15 03/14/2021 1:00 PM EDT Oxygen Saturation 96% 03/14/2021 1:45 PM EDT Inhaled Oxygen Concentration - - Weight - - Height - - Body Mass Index - - documented in this encounter Discharge Summaries * Geoffrey Paredes PA - 03/15/2021 12:23 PM EDT Discharge Summary Patient Name: Sissy Eugene Patient Age: 55 y.o. Language: Salvadorean Race: White Ethnicity: Not nor Admit date: 03/14/2021 Discharge date and time: 03/15/2021 Attending Physician: Rod Valdez MD Discharge Physician: Rod Valdez MD Follow-up Recommendations for Providers: See discharge instructions for additional details. Future Appointments Date Time Provider Department Center 04/11/2021 10:30 AM [facility] DX ROOM 1 Xray [facility] Rad 04/11/2021 11:30 AM Teressa Taylor PA [facility] ORTH 3D [facility] Inpatient Provider Contact Information: Rod Valdez MD Orthopedics: [phone] After hours and weekends, call [facility] Store Stock Associate, , and have the Orthopedic resident paged. Discharge Diagnoses (Hospital Problems) and Secondary Diagnoses (Chronic Problems): Active Hospital Problems Diagnosis ??? S/P revision of total knee, left [place] 03/14/21 Resolved Hospital Problems No resolved problems [...] 3 wbc, hgb, hct plt Recent Labs 03/15/211 03/05/21 1439 09/03/20 1242 WBC 12.6* 6.9 7.0 HGB 11.6* 13.2 14.5 HCT 35.2* 40.3 44.0 PLATELET 237 249 234 Last 3 Lytes Recent Labs 03/15/211 03/05/21 1439 NA 138 143 K 4.2 [...] who have questions please contact the health health care social worker that requested your imaging first. Pending Studies and Lab Data at Discharge: [...] bowel movement. You can also take an pfxs-sia-bubokdg medication, Miralax if needed to combat constipation. [...] as much as possible. Call your doctor ([phone]) if you develop: 1. Fever greater than 100.5 2. Severe nausea or vomiting 3. Increasing pain that is not controlled by pain medications 4. Increasing redness, swelling, or drainage from incisions 5. Change in sensation FOLLOW-UP APPOINTMENTS: 1. You will have follow-up appointments at [facility] as indicated below in Future Appointment and Orders. 2. You will need to have x-rays prior to your follow-up appointment on 04/11/2021. Please come to Radiology, desk 3T, 1 hour BEFORE that appointment for those x-rays. Future Appointments Date Time Provider Department Center 04/11/2021 10:30 AM [facility] DX ROOM 1 Xray [facility] Rad 04/11/2021 11:30 AM Teressa Taylor PA [facility] ORTH [address] [place] [address] If you have questions or concerns: Thursday through Thursday, 8 AM - 5 PM, please call Dr. Rod Valdez MD's office at . If it is after 5 PM, the weekend, or holidays, please call and ask to speak with theOrthopedic resident on-call. General Instructions None Future Appointments and Orders Future Appointments and Orders Future Appointments Provider Department Dept Phone 04/11/2021 10:30 AM [facility] DX ROOM 1 XRay at [facility] Arrive at: Recreation Director Area 3T [phone] Please go to Recreation Director Area 3T ([place] Location). 04/11/2021 11:30 AM Teressa Taylor PA Orthopaedics at [facility] Arrive at: Recreation Director Area 3D [phone] Future Orders Complete By Expires Referral to Home Health - at DISCHARGE [[id number] CPT(R)] As directed Process Instructions: Scheduling Instructions: Comments: DOCUMENTATION FOR VNA SERVICES (INCLUDING THOSE PATIENTS WITH MEDICARE COVERAGE REQUIRING HOME VNA SERVICES AND/OR HOSPICE SERVICES) Sissy Eugene Discharge to own home: [address] [facility] [address] There are no phone numbers on file. Telephone Information: Migratory Worker's Name: self In discussion with the attending physician, it is certified that this patient is under their care and that they, or a nurse practitioner, clinical nurse specialist or physician's apartment community assistant manager who is working directly with them, had [...] for services as follows: Home Health Agency: [facility] PHONE: [phone] FAX: [phone] Home care orders for [facility] w PT services only. Snf(SN) eval if indicated on admission visit 1. [...] from this patient's PCP: Sari Hay MD [employer] [facility] [place] [address] [place] [phone] All [facility] agencies which cover the area of patient's residence have been reviewed, either verbally shaun writing, and patient/family have chosen the home health care agency as noted for home services. Questions: Agency name and contact information: [facility] Patient location post discharge: Home What services are requested: Physical Therapy Occupational Therapy Start date: Responsible MD post discharge contact info: PCP Primary Care Provider: Sari Hay MD [phone] Discharge References/Attachments None documented in this encounter Discharge Instructions * Patient Instructions* Geoffrey Paredes PA - 03/14/2021 5:09 PM EDT Activity: [...] bowel movement. You can also take an ipfw-twe-smdciuo medication, Miralax if needed to combat constipation. [...] as much as possible. Call your doctor ([phone]) if you develop: 1. Fever greater than 100.5 2. Severe nausea or vomiting 3. Increasing pain that is not controlled by pain medications 4. Increasing redness, swelling, or drainage from incisions 5. Change in sensation FOLLOW-UP APPOINTMENTS: 1. You will have follow-up appointments at [facility] as indicated below in Future Appointment and Orders. 2. You will need to have x-rays prior to your follow-up appointment on 04/11/2021. Please come to Radiology, desk 3T, 1 hour BEFORE that appointment for those x-rays. Future Appointments Date Time Provider Department Center 04/11/2021 10:30 AM [facility] DX ROOM 1 Xray [facility] Rad 04/11/2021 11:30 AM Teressa Taylor PA [facility] ORTH 3D [facility] If you have questions or concerns: Thursday [...] will monitor till d/c. Cas Schulz OTR/L 2542 Pager: [phone] CAS SCHULZ OT 03/15/2021 Occupational Therapy Rehabilitation Department * Corine Hu RN - 03/15/2021 10:44 AM EDT The patient/leather goods sales representative has been provided a list of Home Health Agencies/DME vendors which servetheir preferred geographic area. A letter describing our affiliations was reviewed with them and they were educated about their right to choose where referrals are placed. Provided patient with [facility] Star Quality Rating for Home care . Patient requests referral to: [facility] [employer]. PHONE: [phone] FAX: [phone] . Expected date of discharge: 03/15/2021 Referral routed to the Sample Hand for matching with agency/vendor and to provide [...] EACH performed by Stanley Koo MD at [facility] ??? PRO REVISE KNEE JOINT REPLACE, 1 PART Left 02/10/2019 @TOTAL KNEE REVISION ARTHROPLASTY, ONE COMPONENT (WRVU 21.12) performed by Rod Valdez MD [facility] MAIN OR ??? PRO XFER SINGLE SUPERFICI LOW LEG TENDON Left 10/01/2015 TENDON TRANSFER, ANKLE, SUPERFICIAL performed by Stanley Koo MD at [facility] ??? TISSUE TRANSFER ACL cadaver [...] her and son in a 1 story [place] house. Pt's sister who is a physical therapist will be staying with her for a few days after surgery. 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 Pt was not [...] throughout the above therapy session with Audrey Anderson PT/s. Freddieangel reviewed and agree with the above documentation and plan of care. JANE TAVARES, PT Pager [phone] * Kenneth De Leon MD - 03/15/2021 [...] ??? sodium chloride 0.9% 1,000 mL (03/15/21 5292) OBJECTIVE: Temp: [36.1 ??C (97 ??F)-36.9 ??C [...] Time Provider Department Center 04/11/2021 10:30 AM [facility] DX ROOM 1 MH Xray [facility] Rad 04/11/2021 11:30 AM Teressa Taylor, PA [facility] ORTH 3D [facility] * Mayuri Pearce MD - 03/14/2021 7:52 [...] ??? S/P revision of total knee, left [place] 03/14/21 Resolved Hospital Problems No resolved problems [...] ??? sodium chloride 0.9% 1,000 mL (03/14/21 8640) OBJECTIVE: Temp: [36.1 ??C (97 ??F)-36.5 ??C [...] Time Provider Department Center 04/11/2021 10:30 AM [facility] DX ROOM 1 MH Xray [facility] Rad 04/11/2021 11:30 AM Teressa Taylor PA [facility] ORTH 3D [facility] * Sb Roca RN - 03/14/2021 6:26 [...] Newby RN - 03/14/2021 5:13 PM EDT 1715 - dinner break coverage. Xrays completed. documented [...] Operative Note Patient Name: Sissy Eugene : [id number] MR#: [id number] Case Date: 03/14/2021 Surgeon: Surgeon(s) and Role: [...] Valdez MD - 03/14/2021 2:09 PM EDT [facility] Operative Note Patient Name: Sissy Eugene : [id number] MR#: [id number] Case Date: 03/14/2021 Surgeon: Surgeon(s) and Role: [...] and this was marked with a green zuni. An adductor canal block was placed for [...] the implants were openedand assembled according to commercial leasing agent instructions. 2 x 40 g bags of [...] Implant Name Type Inv. Item Serial No. Customer Equipment Engineer Lot No. LRB No. Used Action CEMENT BONE HIGH VISCOSITY 40GM GENTAMICIN SINGLE DOSE PMMA ([id number]) - [id number] IMPLANTS CEMENT BONE HIGH VISCOSITY 40GM GENTAMICIN SINGLE DOSE PMMA ([id number]) [employer] [facility] SH[facility] [id number] Left 1 Implanted CEMENT BONE HIGH VISCOSITY 40GM GENTAMICIN SINGLE DOSE PMMA ([id number]) - [id number] IMPLANTS CEMENT BONE HIGH VISCOSITY 40GM GENTAMICIN SINGLE DOSE PMMA ([id number]) [employer] [facility] [id number] Left 1 Implanted Isa persona stem extension [id number] Left 1 Implanted Isa Persona Left PS poly 12mm ISA BIOMET - [id number] Left 1 Implanted Isa Persona Fixed Tibia left size F ISA BIOMET - [id number] Left 1 Implanted documented in this encounter [...] EDT Revise Knee Joint Replace, 1 Part (36499) 03/14/2021 1:45 PM EDT Aseptic Loosening Left TKA IMPLANTABLE DEVICES SCAN 03/14/2021 12:00 AM EDT documented in this encounter Results * (ABNORMAL) Differential, Automated (03/15/2021 2:21 AM EDT) Neutrophils % 85.4 % [facility] Neutr Abs (ANC) 10.75(H) 1.70 - 6.10 x10(3)/[facility] Lymphocytes % 9.1 % [facility] Lymphocytes Abs 1.1 0.9 - 3.2 x10(3)/[facility] Monocytes % 4.9 % [facility] Monocyte Abs 0.6 0.3 - 0.9 x10(3)/[facility] Eosinophils % 0.0 % [facility] Eosinophils Abs 0.0 0.0 - 0.4 x10(3)/[facility] Basophils % 0.2 % [facility] Basophils Abs 0.0 0.0 - 0.1 x10(3)/[facility] Immature Gran % 0.40 % [facility] Comment: Immature granulocytes(IG's)percentage and absolute count will include metamyelocytes, myelocytes, and promyelocytes. Blood smears from CBCs yielding IG's will be scanned manually for concordance. If this scan disagrees with the automated IG or if promyelocytes are noted, a manual differential will be performed. Lorrie Gran Abs 0.05(H) 0.00 - 0.04 x10(3)/[facility] Blood 03/15/2021 2:21 AM EDT 03/15/2021 2:38 AM EDT Narrative Resulting Agency Comment Spec In Lab Kenneth De Leon MD HEMATOLOGY ORDERABLE S [facility] [place] [address] * (ABNORMAL) Hemogram (03/15/2021 2:21 AM EDT) WBC 12.6(H) 4.0 - 9.5 x10(3)/[facility] RBC 3.93(L) 4.00 - 5.21 x10(6)/[facility] Hemoglobin 11.6(L) 11.7 - 15.5 gm/dL [facility] Hematocrit 35.2(L) 35.7 - 45.8 % [facility] MCV 89.6 82.6 - 94.4 [facility] MCH 29.5 27.1 - 32.0 pg [facility] MCHC 33.0 31.7 - 35.0 gm/dL [facility] Platelets 237 145 - 357 x10(3)/[facility] RDWSD 39.7 37.0 - 46.0 [facility] RDWCV 12.1 11.5 - 14.1 % [facility] MPV 10.2 7.6 - 12.9 [facility] nRBC % Auto 0.0 % [facility] nRBC Abs Auto 0.000 0.000 - 0.000 x10(3)/[facility] Blood 03/15/2021 2:21 AM EDT 03/15/2021 2:38 AM EDT Narrative Resulting Agency Comment Spec In Lab Kenneth De Leon MD HEMATOLOGY ORDERABLE S [facility] [place] [address] * Basic Metabolic Panel (non-fasting) (03/15/2021 2:21 AM EDT) Glucose Lvl 132 65 - 199 mg/dL [facility] Comment:Diabetes: >=200 mg/d L plus symptoms BUN 14 8 - 18 mg/dL [facility] Creatinine 0.76 0.70 - 1.20 mg/dL [facility] Sodium 138 135 - 145 mmol/L [facility] Potassium 4.2 3.5 - 5.0 mmol/L [facility] Comment: Please note: ??Patients with WBC >100,000 may have falsely elevated Potassium levels. ??For accurate Potassium quantification in these patients send serum separator tube (gold top) for subsequent determinations. ??Contact the Clinical Chemistry Laboratory if there are any questions. Chloride 105 98 - 107 mmol/L [facility] CO2 24 22 - 31 mmol/L [facility] Anion Gap 9 5 - 15 mmol/L [facility] Calcium 8.9 8.5 - 10.5 mg/dL [facility] Estimated GFR 87 >=60 mL/min/1. 73 m?? [facility] Comment: This patient? s [...] In Lab Rod Valdez MD CHEMISTRY ORDERABLES [facility] [place] [address] * XR Knee 1-2 Views Left (Generic) [...] who have questions please contact the health health care social worker that requested your imaging first. ? Narrative 03/15/2021 8:17 AM EDT EXAMINATION: XR [...] patients who have questions please contactthe health health care social worker that requested your imaging first. Rod Valdez MD IMG DX ORDERABLES * Cell Count Body Fluid Knee, Left (03/14/2021 2:15 PM EDT) Spec Type BF Knee, Left [facility] Color BF Yellow [facility] Appearance BF Clear [facility] WBC BF Ct 103 /mcl [facility] Comment: Guideline listed below [...] at 03-14-21 14:43. Polymorph % 13 % [facility] Comment: Polymorphonuclear cell percent and absolute values may contain Neutrophils, Eosinophils, and Basophils. Body fluid smear will be scanned manually for concordance. Mononuc % 87 % [facility] Comment: Mononuclear cell percent and absolute values may contain Lymphocytes and Monocytes. Body fluid smear will be scanned manually for concordance. Polymorph BF ABS 13 /mcl [facility] Comment: Polymorphonuclear cell percent and absolute values may contain Neutrophils, Eosinophils, and Basophils. Body fluid smear will be scanned manually for concordance. Mononuc ABS 90 /mcl [facility] Comment: Mononuclear cell percent and absolute values may contain Lymphocytes and Monocytes. Body fluid smear will be scanned manually for concordance. Knee, Left 03/14/2021 2:15 PM EDT 03/14/2021 2:22 PM EDT Narrative Resulting Agency Comment Spec In Lab Rod Valdez MD BODY FLUIDS AND STOO LS ORDERABLES [facility] [address] * SCAN DOC: IMPLANTABLE DEVICES (03/14/2021 12:00 AM EDT) Narrative 03/14/2021 12:00 AM EDT Ordered by an unspecified provider. Scanning Provider MEDIA MGR SCAN EXT O RDR/RSLT documented in this encounter Visit Diagnoses Not [...] Given 03/14/2021 9:49 PM EDT 81 mg BUpivacaine (pf) (Marcaine) (2.5 mg/mL) 0.25% injection ONCE PRN, Starting on Paty 03/14/21 at 1409, Until Thu03/15/21 at 1605, Intra-Operative (Intra-Procedure), Routine Given 03/14/2021 3:40 PM EDT 50 mLs 19- Surgical Site Given 03/14/2021 2:09 PM EDT 10 mLs 19 - Surgical Site celecoxib (CeleBREX) capsule 200 mg 200 mg, [...] Given 03/14/2021 11:20 AM EDT 400 mg cloNIDine (pf) (Duraclon) (100 mcg/mL) Epidural injection ONCE PRN, Starting on Paty 03/14/21 at 1540, Until Thu03/15/21 at 1605, Intra-Operative (Intra-Procedure), Routine Given 03/14/2021 3:40 PM EDT 50 mcg 19- Surgical Site dexamethasone (Decadron) tablet 4 mg 4 mg, [...] Given 03/14/2021 5:05 PM EDT 0.2 mg ketorolac (Toradol) (30 mg/mL) injection ONCE PRN, Starting on Paty 03/14/21 at 1540, Until Thu03/15/21 at 1605, Intra-Operative (Intra-Procedure), Routine Given 03/14/2021 3:40 PM EDT 30 mg 19- Surgical Site midazolam (pf) (Versed) (1 mg/mL) injection 1 [...] 03/14/21 at 2215, Until Discontinued, Routine Given 03/14/2021 [...] Paty 03/14/21 at 2215, Until Discontinued, Routine 2150 (Given - Provider: Dora Salas RN) 0849 [...] Paty 03/14/21 at 2215, Until Discontinued, Routine 2154 (Given - Provider: Dora Salas RN) 0900 (Not Given - Provider: Rod Weaver RN - Reason: Patient/family refused) senna-docusate (Pericolace) 8.6-50 mg per tablet 2 tablet 2 tablet, Oral, 2 TIMES DAILY, First dose on Paty 03/14/21 at 2215, Until Discontinued, Routine 2154 (Given [...] Unit) 1728 (New Bag - Provider: Corie Newby, ODIN) 0502 (New Bag - Provider: Dora Salas [...] Procedure), Routine 1158 (Given - Provider: Pablo Phan, ODIN) HYDROmorphone (Dilaudid) (2 mg/mL) multi-dose injection solution [...] Recovery, Routine 1705 (Given - Provider: Sb Roca, ODIN) ketorolac (Toradol) (15 mg/mL) injection 15 mg [...] relieved., Routine 2155 (Given - Provider: Dora Salsa RN) 0453 (Given - Provider: Dora Salas RN) sodium chloride 0.9 % (flush) flush 5-20 mL 5-20 mL, Intravenous, EVERY 1 MIN PRN, Starting on Paty 03/14/21 at 2125, Until Thu03/15/21 at 1605, flush, [...] Unit) documented in this encounter Care Teams Lime Puller Relationship Specialty Start Date End Date Sari Hay MD [address] [place] [address] PCP - General 05/21/11 documented as of this encounter
--- OUTSIDE RECORDS SUMMARY | 2024-04-26 15:48 | XMS_ITS | Encounter Summary ---
Author Organization [facility] Address [facility] [place] [address] Care Team Providers Care Senior Telecommunications Engineer Name Role Phone Sari Hay MD Primary Care Provider [phone] Reason for Referral * Diagnostic Test (Emergency) - Closed Specialty Diagnoses / Procedures Referred By Emmanuel cisneros Referred To Contact Radiology Diagnoses S/P revision of total knee, left Procedures CT Knee wo Contrast Left (Generic) Teressa Taylor PA [facility] [place] [address] [facility] [place] [address] Referral ID Status Reason Start Date Expiration Date V isits Requested Visits Authorized [id number] Closed Specialty Service Requested 06/21/2021 08/19/2021 1 1 Encounter Details Date Type Department Care Team (Late st Contact Info) Description 06/21/2021 Orders [place] [address] Teressa Taylor PA [facility] [place] [address] S/P revision of total knee, left Social [...] on file documented as of this encounter Results * CT Knee wo [...] who have questions please contact the health intensive care medicine specialist that requested your imaging first. ? Electronically signed by: Rachel Angel MD, [facility] ([phone]), at 06/26/2021 4:14 PM Narrative 06/26/2021 4:14 PM EDT EXAMINATION: CT [...] 1 mm slice thickness are evaluated. On anindependent workstation, 3D surface rendered reformats are generated. [...] for a 4.3 cm segment (series 7 [id number]; series 5 images [phone]). No fracture line. [...] patients who have questions please contactthe health intensive care medicine specialist that requested your imaging first. Electronically signed by: Rachel Angel MD, [facility]([phone]), at 06/26/2021 4:14 PM Ammy Latham MD IMG CT ORDERABLES documented in this encounter Visit Diagnoses Diagnosis S/P revision of total knee, left S/P revision of total knee, left documented in this encounter Care Teams Senior Telecommunications Engineer Relationship Specialty Start Date End Date Sari Hay MD [address] [place] [address] PCP - General 05/21/11 documented as of this encounter
--- OUTSIDE RECORDS SUMMARY | 2024-04-26 15:48 | XMS_ITS | Encounter Summary ---
Author Organization [facility] [place] [address] Care Team Providers Care Steam Turbine Operator Name Role Phone Sari Hay MD Primary Care Provider [phone] Reason for Visit * Reason Onset Date Comments Questions 04/01/2021 Encounter Details Date Type Department Care Team (Late st Contact Info) Description 04/01/2021 Telephone [place] [address] Michael Rios Questions Social History Tobacco Use Types Packs/Day [...] encounter Miscellaneous Notes * Telephone Encounter - Poly Souza CCMA - 04/02/2021 9:15 AM EDT Marissa Sargent reviewed patient's concerns and chart. she stated that she would like the patient to try to take the gabapentin just once at night. She would like the patient to call us back if after a few days it is not enough to manage her pain. I called the patient to let her know. She knows that she has a script available at her pharmacy and will have to pay out of pocket to pick it up. She will call if she continues to have pain that wakes her in the night. * Telephone Encounter - Poly Souza CCMA - 04/02/2021 8:39 AM EDT I spoke to Marissa Sargent. Pt. Should only be taking 1x daily. Script for 2x daily was refused. I called the pharmacy.Tthey stated the gabapentin without insurance would be $14.35. I called the patient to relay this information. Patient stated that the cost was less than expected. However, she feels that she needs to take 2 tablets in order to sleep at night. She said she was given up to 3 tablets after previous surgeries. She is currently out, but was taking 300mg at 9pm and then waking up around 2am from nerve pain (the patient described it as itching/electrical/stinging/miss firing and refiring sensation) She would take the second 300mg at 2am and sleep until 7am. Other than gabapentin she is taking Tylenol before bed and no pain medication during the day. She stated that she does not need it during the day. Patient requested a call back to discuss further. * Telephone Encounter - Frankie Emerson RMA - 04/01/2021 5:12 PM EDT Called the patient's pharmacy. This does not need a prior authorization. They cannot refill the gabapentin until 04/12 because it is too soon the way it is written. It was written to be taken nightly and the patient has been taking twice daily. The pharmacy states they can dispense the gabapentin if we write a new prescription with different instructions if that we are ok with her taking it that often. Pended a new script for gabapentin twice daily and sent a message for Marissa sargent to review ifit is ok for twice a day. * Telephone Encounter - Michael Rios - 04/01/2021 10:07 AM EDT Triage Note Subjective: pt calls to ask for guidance with 03/29/21 rx refill stating that insurance [employer] denied it Trent questions/Assessment: Sissy Eugene is a 55 y.o. female who is s/p L TKA Revision DOS: 03/14/[address] Valdez. Per 03/29/21, refill for Gabapentin was placed, however insurance denied it. Plan: forward to med refill line to assist with prior authorization Patient/Responsible constitution party voices an understanding of advice? yes Patient/Responsible constitution party intends to comply with action/disposition: yes documented in this encounter Plan of Treatment Not on file documented as of this encounter Visit Diagnoses Not on filedocumented in this encounter Care Teams Steam Turbine Operator Relationship Specialty Start Date End Date Sari Hay MD [facility] [address] [place] [address] PCP - General 05/21/11 documented as of this encounter
--- OUTSIDE RECORDS SUMMARY | 2024-04-26 15:48 | XMS_ITS | Encounter Summary ---
Author Organization [facility] [place] [address] Care Team Providers Care Garden Equipment Mechanic Name Role Phone Sari Hay MD Primary Care Provider [phone] Encounter Details Date Type Department Care Team (Late st Contact Info) Description 01/28/2021 Telephone Orthopaedics at [facility] [place] [address] Candida Yost [facility] [place] [address] Social History Tobacco Use Types Packs/Day Years [...] encounter Miscellaneous Notes * Telephone Encounter - Candida Yost MSW - 01/28/2021 12:55 PM EDT OFFICE OF CARE MANAGEMENT CCM Discussed post op plan and concerns (had wondered about inpatient rehab recognizes she will not likely meet criteira) . Agreeable to start with [facility] PT to guide and reinforce. Will check with RN friend and confirm preferred agency. Also notes she is actually working until February 28 and therefore cannot come see Dr. Valdez for pre op February 27. Can come for visit March 01 or any day after. Update to schedulers to please confirm changed appt. Ms. Eugene has no further questions or concerns. Wished her well and encouraged her to be in touch at any time. documented in this encounter Plan of Treatment Not on file documented as of this encounter Visit Diagnoses Not on filedocumented in this encounter Care Teams Garden Equipment Mechanic Relationship Specialty Start Date End Date Sari Hay MD [address] [place] [address] PCP - General 05/21/11 documented as of this encounter
--- OUTSIDE RECORDS SUMMARY | 2024-04-26 15:48 | XMS_ITS | Encounter Summary ---
Author Organization [facility] Address [facility] [place] [address] Care Team Providers Care Dip Filler Name Role Phone Sari Hay MD Primary Care Provider [phone] Reason for Visit * Reason Onset Date Comments Referral 03/15/2021 Encounter Details Date Type Department Care Team (Late st Contact Info) Description 03/15/2021 [place] [address] Pablo Sutton MD [facility] DR ORTHOPAEDIC [place] [address] Referral Social History Tobacco Use Types Packs/Day Years [...] * Telephone Encounter - Robert Cornell - 03/15/2021 2:00 PM EDT Sissy Eugene calls today to request that the home health referral to [facility] be faxed again. She spoke with the agency and they have not received the referral yet. [facility] referral and supporting documentation faxed again today. F: [phone] documented in this encounter Plan of Treatment Not on file documented as of this encounter Visit Diagnoses Not on filedocumented in this encounter Care Teams Dip Filler Relationship Specialty Start Date End Date Sari Hay MD [address] [place] [address] PCP - General 05/21/11 documented as of this encounter
--- OUTSIDE RECORDS SUMMARY | 2024-04-26 15:48 | XMS_ITS | Encounter Summary ---
Author Organization [facility] Address [facility] [place] [address] Care Team Providers Care Sleeper Cutter Name Role Phone Sari Hay MD Primary Care Provider [phone] Reason for Referral * Physical Therapy (Routine) - Specialty Diagnoses / Procedures Referred By Emmanuel cisneros Referred To Contact Physical Therapy Diagnoses S/P revision of total knee, left Rod Valdez MD [facility] [place] [address] Referral ID Status Reason Start Date Expiration Date V isits Requested Visits Authorized [id number] Evaluate and Treat Non PCP 03/28/2021 09/24/2021 20 20 Reason for Visit * Reason Onset Date Comments Physical Therapy 03/28/2021 Encounter Details Date Type Department Care Team (Late st Contact Info) Description 03/28/2021 Telephone [place] [address] Robert Cornell Physical Therapy Social History Tobacco Use Types Packs/Day Years [...] * Telephone Encounter - Robert Cornell - 03/28/2021 3:17 PM EDT Sissypradeep Eugene calls requested a PT referral be sent to [facility]. A referral was generated, printed and faxed at 3:17 PM on 03/28/2021 No further questions/concerns. documented in this encounter Plan of Treatment Scheduled Referrals Name Type Priority Associated Diagnoses Orde r Schedule Referral to Physical Therapy Outpatient Referral Routine S/P revision of total knee, left [place] 03/14/21 Ordered: 03/28/2021 documented as of this encounter Visit Diagnoses Diagnosis S/P revision of total knee, left [place] 03/14/21 documented in this encounter Care Teams Sleeper Cutter Relationship Specialty Start Date End Date Sari Hay MD [address] [place] [address] PCP - General 05/21/11 documented as of this encounter
--- OUTSIDE RECORDS SUMMARY | 2024-04-26 15:48 | XMS_ITS | Encounter Summary ---
Author Organization [facility] Address [facility] [place] [address] Care Team Providers Care Child Care Name Role Phone Sari Hay MD Primary Care Provider [phone] Reason for Visit * Reason Onset Date Comments Knee Pain 09/10/2021 Encounter Details Date Type Department Care Team (Late st Contact Info) Description 09/10/2021 [place] [phone] Rod Valdez MD [facility] [place] [address] Knee Pain Social History Tobacco Use Types Packs/Day Years [...] encounter Miscellaneous Notes * Telephone Encounter - Rachel Rahman - 09/10/2021 1:31 PM EST Patient calling back, she is in a lot of pain from her fall and she would like to know if she can get in today to be seen? P: [phone] * Telephone Encounter - Jessica Villa - 09/10/2021 11:37 AM EST Who is calling: RADHA Was this a new injury? YES, 09/10/21 Have you had Surgery?YES If so when?03/14/21 Who was the Surgeon?SATISH What is the question: Patient called and stated that she just fell on the ice about a half hour ago. She said she twisted the knee. She would like a call back with recommendations of what she should do after 12:45 pm today. Best number to reach the caller: [phone] documented in this encounter Plan of Treatment Not on file documented as of this encounter Visit Diagnoses Not on filedocumented in this encounter Care Teams Child Care Relationship Specialty Start Date End Date Sari Hay MD [address] [place] [address] PCP - General 05/21/11 documented as of this encounter
--- OUTSIDE RECORDS SUMMARY | 2024-04-26 15:48 | XMS_ITS | Encounter Summary ---
[facility] [place] [address] Care Team Providers Care Key Holder Name Role Phone Sari Hay MD Primary Care Provider [phone] Encounter Details Date Type Department Care Team (Late st Contact Info) Description 06/18/2021 Telephone [place] [address] Rachel Rahman Social History Tobacco Use Types Packs/Day Years [...] encounter Miscellaneous Notes * Telephone Encounter - Trice Taveras - 06/20/2021 3:06 PM EDT Patient called to since she has not heard from anyone. Attempted to schedule her in to Teressa's schedule per note however nothing available next week on Thursday or Thursday. Offered Thursday and patient advised she has 2 jobs on Thursday and she can not come in on Thursday regardless of the time. Will reach out to Teressa Taylor to get her suggestions for double booking Thursday or Thursday. Patient advised she will take anything either day if possible, to go ahead and Book her and leave her a message on or send her a message on My DH. * Telephone Encounter - Rachel Rahman - 06/18/2021 4:24 PM EDT Patient calling to schedule with Marissa Taylor. Awaiting imaging from [facility]. Let patient know we will be calling her to schedule soon. documented in this encounter Plan of Treatment Not on file documented as of this encounter Visit Diagnoses Not on filedocumented in this encounter Care Teams Key Holder Relationship Specialty Start Date End Date Sari Hay MD [address] [facility] [address] [place] [address] PCP - General 05/21/11 documented as of this encounter
--- OUTSIDE RECORDS SUMMARY | 2024-04-26 15:48 | XMS_ITS | Encounter Summary ---
[place] [address] Care Team Providers Care Fine Arts Instructor Name Role Phone Sari Hay MD Primary Care Provider [phone] Reason for Referral * Diagnostic Test (Routine) - Closed Specialty Diagnoses / Procedures Referred By Emmanuel cisneros Referred To Contact Radiology Diagnoses Primary osteoarthritis of right knee Positive Leona test of right knee, initial encounter Procedures MRI Knee wo Contrast Right (Generic) Gege Harrell, GANESH [facility] [place] [address] [place] [address] Referral ID Status Reason Start Date Expiration Date V isits Requested Visits Authorized [id number] Closed Specialty Service Requested 01/22/2022 03/22/2022 1 1 Reason for Visit * Reason Comments Establish Care Right knee pian * Consultation (Routine) - Closed Specialty Diagnoses / Procedures Referred By Contbucky t Referred To Contact Orthopaedics Diagnoses R KNEE PAIN Self mail [facility] [address] [place] [address] Referral ID Status Reason Start Date Expiration Date V isits Requested Visits Authorized [id number] Closed Consult, Test & Treat 12/18/2021 12/18/2022 1 1 Encounter Details Date Type Department Care Team (Latest Contact Info) Description 01/20/2022 11:00 AM EDT Office [place] [address] Teressa Taylor PA [facility] [place] [address] Primary osteoarthritis of right knee; Positive Leona test of right knee, initial encounter; Plantar fasciitis, right Social History Tobacco Use Types Packs/Day Years [...] Sign Reading Time Taken Comments Blood Pressure 145/90 01/20/2022 11:00 AM EDT Pulse 72 01/20/2022 11:00 AM EDT Temperature - - Respiratory Rate - - Oxygen Saturation - - Inhaled Oxygen Concentration - - Weight 111.1 kg (245 lb) 01/20/2022 11:00 AM EDT Height 177.8 cm (5' 10) 01/20/2022 11:00 AM EDT Body Mass Index 35.15 01/20/2022 11:00 AM EDT documented in this encounter Progress Notes * Teressa Taylor PA - 01/20/2022 11:00 AM EDT Images from the original note were not included. Department of Orthopaedics Division of Adult Joint Reconstructive Surgery CHIEF COMPLAINT: several weeks right knee pain and swelling ARTHROPLASTY HISTORY/PREVIOUS KNEE SURGERY: 1. 09/29/17 Left TKA (Christy Fischer) 2. 4 Left knee arthroscopic synovectomy for medial pain and stiffness 3. 5 ([employer]) LEFT TKA revision, joint infection (I&D, poly exchange) 4. 6 ([employer]) LEFT TKA revision, aseptic loosening. Femur and patella retained, revised tibial component Sissy Eugene was referred from Self mail I.D.: Sissy Eugene is a 56 y.o. year old female being seen today to discuss her Right knee. Right knee pain and swelling since Nov 2021. Had pain after walking with her son. Laurel like she twisted her knee. Pain is mostly medial, but a sore spot anterior and a small spot laterally too. Seen in ED recently when one of our city secretary staff advised her to get evaluated for concern for septic mashpee kneegiven hx PJI on the other side. Had reassuring exam and eval and discharged w/ f/u ortho clinic. Swelling has improved some since ED visit. She is frustrated that she is unable to be active. Difficulty with sleeping. Taking ibuprofen TID w/o side effect. Has been limiting her activity. Has actuallyhad to use crutches intermittently to help with pain and symptoms. She has felt occasional instability at right right lateral knee with twisting motion. Denies other mechanical symptoms of locking, catching, giving way. Hx right knee scope for medial meniscectomy 2012 or 14. 8-9 months right heel pain. 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 Diagnosed with plantar fasciitis 05/2022. Given script for PT. She did not do a lotof PT for her foot, mostly worked on her knee. Athletic taping does help some. She was unable to tolerate a night splint. Has tried plantar fasciitis sandals and Hayes's shoes. Hx bilat plantar fasciitis in the past that eventually resolved. Clogs did help her pain in the past. Hx left knee PJI. Denies DM. No GI hx bleed, ulcer, kidney issues. No liver problems. QUESTIONNAIRE RESPONSES: General Health, Prior Treatments, PreExisting Condition, Health Habits, About You 10/09/2021 PROMIS-10 General Health Good PROMIS-10 Quality of Life Very Good PROMIS-10 Physical Health Good PROMIS-10 Mental Health Very Good PROMIS-10 Social Activity Good PROMIS-10 Everyday Activities Mostly PROMIS-10 Pain 4 PROMIS-10 Fatigue Mild PROMIS-10 Social Roles Very Good PROMIS-10 Anxious or Depressed Rarely PROMIS PHYSICAL SCORE (range 16-68) 44.9 PROMIS MENTAL SCORE (range 21-68) 50.8 Treatments Tried - Prior Surgery - KOOS JR Scores 57.14 TKA Grade 5 Alzheimers or dementia - Cirrohosis or liver disease - HIV/AIDS - Pain in more than one joint in legs - Back or neck pain - Heart attack - Heart failure - Unclog/bypass leg arteries - Stroke, blood clot, TIA - Asthma - Emphysema, chronic bronchities, or COPD - Stomach ulcers/peptic ulcer disease - Diabetes - Poor kidney function - Rheumatic condtions - Cancer - Weight (lbs) - Height (feet) - Height (Inches) - BMI - Ever used tobacco products - Tobacco frequency - WHO - Tobacco Advice - Ever used alcoholic beverages - Alcohol frequency - WHO - Alcohol Advice - Live Alone - Marital situation - Schooling - Combined Household Income - # People Supported - Jamaican, , - Race - Health Literacy - Currently working - Current job situation - Employment status before injury - Returned to previous employment - Working at same capacity as before injury - Spending time in inpatient rehab facility - Rate overall condition today - [facility] Response 10/09/2021 KOOS JR Scores 57.14 Spine [facility] Response 10/09/2021 KOOS JR Scores 57.14 ALLERGIES Allergies Allergen Reactions ??? Adhesive Itching and Rash ??? Adhesive Bandage Rash ??? Codeine Nausea Only Other reaction(s): Nausea SOCIAL HISTORY: reports that she quit smoking about 18 years ago. Her smoking use included cigarettes. She has a 7.50 pack-year smoking history. She has never used smokeless tobacco. She reports current alcohol use. She reports that she does not use drugs. 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 Hammer toe of left foot M20.42 ? ? s/p left knee I&D, polyethylene exchange for acute PJI with Dr. Valdez 02/10/19 T84.53XA ??? Obesity, Class II, BMI 35-39.9 E66.9 ??? Closed fracture of distal end of left radius with routine healing, DOI: 09/05/2019 S52.502D ??? S/P revision of total knee, left [place] 03/14/21 Z96.652 VITALS: BP Readings from Last 1 Encounters: 01/03/22 (!) 154/94 Pulse Readings from Last 1 Encounters: 01/03/22 61 There is no height or weight on file to calculate BMI. PHYSICAL EXAM: Constitution: Sissy Eugene sits in the clinic today alert, appears stated age and cooperative. She is alert and oriented. Right TTP medial and lateral joint lines Equovical Leona, guarded Right knee ROM is full extension to 120 degrees flexion w/ tightness Healed incisions from past knee scope No laxity with varus or valgus stress Mild crepitance with knee ROM Trace right knee effusion Apodaca cyst, right Skin overlying BLE is without erythema, ecchymoses, rash, lesion Right DP pulse 2+ Able to wiggle toes Able to DF/PF bilateral ankles TTP at plantar fascia origin, recreates her pain No TTP with DF/PF No TTP medial or lateral heel on exam today, but she says she occasionally gets pain here IMAGING: Recent NWB x-rays of the right knee from the ED demonstrate osteophytes present medially and laterally. Joint space narrowing difficult to assess on NWB views. Standing alignment film from 04/2021 demonstrates right moderate joint space narrowing medially w/ subchondral sclerosis present. Discussed with Ana Rosa. ASSESSMENT AND PLAN:Ms. Eugene is a 56 y.o. year old female with moderate osteoarthritis of her right knee and positive Leona sign. Discussed likely meniscus tear w/ underlying degenerative change. Discussed conservative treatments of NSAID, soft knee bracing, ice, PT, tylenol, steroid injection. She would like a definitive diagnosis and inquires about an MRI. I explained this likely wouldn't change her treatment options as conservative options will still be our first line of treatment and knee scope may not be offered with her underlying degenerative change. She would still like to proceed. For her pain today, we'll plan to continue on NSAID as she is tolerating this well, and do a steroid injection after discussion of risks. Discussed safe NSAID dosing and side effects and adding in tylenol. We discussed the risks of this procedure including, but are not limited to increased pain, infection, bleeding, increase in blood sugars, and steroid flare. A timeout was performed at the bedside. Patient confirmed name, , allergies, and site of injection. The injection site was marked over the distal lateral border of the patella, and prepared with chlorhexadine. Ethyl chloride was used to numb the area. 4 ccs of 1% plain Lidocaine and 10 mg of Kenalog 40 were injected on a 22 gauge needle.The procedure was well tolerated. The right knee was then brought through gentle range of motion. The injection site was covered cleaned with sterile gauze and covered with a band-aid. We discussed mo nitoring for signs and symptoms of infection which includes fevers, chills, night sweats, injectionsite redness and discharge, increase in knee pain, and red, hot, and swollen knee. She expressed understanding and will call if any of these become present. Clinical diagnosis of plantar fasciitis. I don't feel imaging is warranted today. Discussed conservative treatments of NSAID, stretching, bracing, PT, cushioned shoewear and orthotics. She'll plan tocontinue with stretching, shoewear, and NSAID. Gege Harrell PA-C on behalf of Teressa Taylor PA-C documented in this encounter Plan of Treatment Not on file documented as of this encounter Results * MRI Knee wo [...] who have questions please contact the health urgent care physician assistant that requested your imaging first. ? Narrative [...] quadriceps and patellar tendons are intact.Signal in Zakiya's fat pad is normal.. Bones, [...] patients who have questions please contactthe health urgent care physician assistant that requested your imaging first. Mitchell Early MD IMG MRI ORDERABLES documented in this encounter Visit Diagnoses Diagnosis Primary osteoarthritis of right knee Primary localized osteoarthrosis, lower leg Positive Leona test of right knee, initial encounter Plantar fasciitis, right Plantar fascial fibromatosis Primary osteoarthritis of right knee Primary localized osteoarthrosis, lower leg Positive Leona test of right knee, initial encounter documented in this encounter Administered Medications Inactive Administered Medications - up to 3 most recent administrations Medication Order MAR Action Action Date Dose Rate Site triamcinolone acetonide (Kenalog-40) (40 mg/mL) injection 40 mg 40 mg, Intra-articular, ONCE, 1 dose, On 01/20/22 at 1215, Routine Given 01/20/2022 11:56 AM EDT 40 mg documented in this encounter Care Teams Fine Arts Instructor Relationship Specialty Start Date End Date Sari Hay MD [address] [place] [address] PCP - General 05/21/11 documented as of this encounter
--- OUTSIDE RECORDS SUMMARY | 2024-04-26 15:48 | XMS_ITS | Encounter Summary ---
Author Organization [facility] Address [facility] [place] [address] Care Team Providers Care Supervisor Dry Cleaning Name Role Phone Sari Hay MD Primary Care Provider [phone] Encounter Details Date Type Department Care Team (Late st Contact Info) Description 06/14/2021 Telephone [place] [phone] Teressa Taylor PA [facility] [place] [address] Social History Tobacco Use Types Packs/Day Years [...] encounter Miscellaneous Notes * Telephone Encounter - Teressa Taylor PA - 06/14/2021 1:57 PM EDT I received a phone call from Ana Rosa with a request for a phone call back from myself. She would not leave a reason for the phone call with ANALY Kuo. I tried calling the pt back however there was no answer. I left a message on her machine requestinga call back. Teressa Taylor PA-C documented in this encounter Plan of Treatment Not on file documented as of this encounter Visit Diagnoses Not on filedocumented in this encounter Care Teams Supervisor Dry Cleaning Relationship Specialty Start Date End Date Sari Hay MD [facility] [address] [facility] [address] [place] [address] PCP - General 05/21/11 documented as of this encounter
--- OUTSIDE RECORDS SUMMARY | 2024-04-26 15:48 | XMS_ITS | Encounter Summary ---
Author Organization [facility] [place] [address] Care Team Providers Care Inventory And Pricing Associate Name Role Phone Sari Hay MD Primary Care Provider [phone] Encounter Details Date Type Department Care Team (Late st Contact Info) Description 03/05/2021 2:00 PM EDT [place] [address] Social History Tobacco Use Types Packs/Day Years [...] on filedocumented in this encounter Care Teams Inventory And Pricing Associate Relationship Specialty Start Date End Date Sari Hay MD [address] [place] [address] PCP - General 05/21/11 documented as of this encounter
--- OUTSIDE RECORDS SUMMARY | 2024-04-26 15:48 | XMS_ITS | Encounter Summary ---
Author Organization [facility] Address [facility] [place] [address] Care Team Providers Care Telephone Order Clerk Name Role Phone Sari Hay MD Primary Care Provider [phone] Reason for Visit * Reason Comments Pre-op Exam Revision Left TKA DOS 03.14.21 Encounter Details Date Type Department Care Team (Late st Contact Info) Description 03/05/2021 2:40 PM EDT Office [place] [address] Ko Garrett MD [facility] [address] [place] [address] Preop examination; Mechanical loosening of internal left knee prosthetic [...] Sign Reading Time Taken Comments Blood Pressure 122/84 03/05/2021 2:56 PM EDT Pulse 45 03/05/2021 2:56 PM EDT Temperature - - Respiratory Rate - - Oxygen Saturation 100% 03/05/2021 2:56 PM EDT Inhaled Oxygen Concentration - - Weight 102.5 kg (226 lb) 03/05/2021 2:56 PM EDT Height 177.8 cm (5' 10) 03/05/2021 2:56 PM EDT Body Mass Index 32.43 03/05/2021 2:56 PM EDT documented in this encounter Progress Notes * Ko Garrett MD - 03/05/2021 2:40 PM EDT Images from the original note were not included. CC: Sissy Eugene is a 55 y.o. female with the following problems and medications that is being seen in the clinic for consultation at the request of her surgeon Dr. 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 She had evaluation with inflammatory markers which were normal and aspiration without growth on culture, imaging was relevant for periprosthetic lucency suggestingloosening. She is having aspiration again tomorrow. She notes no interim fever, chills or unexpected weight loss. She had the J&J vaccine at school. She notes a nodule on her left lower anterior leg. This is not tender, red or painful. She also noted discomfort in the left medial knee and uppermedial leg. She notes no CP, SOB, diaphoresis or palpitations. She denies ankle or leg swelling or prominent veins or cords. Patient Active Problem List Diagnosis Code ??? Hammer toe of left foot M20.42 ? ? s/p left knee I&D, polyethylene exchange for acute PJI with Dr. Valdez 02/10/19 T84.53XA ??? Obesity, Class II, BMI 35-39.9 E66.9 ??? Closed fracture of distal end of left radius with routine healing, DOI: 09/05/2019 S52.502D Current Outpatient Medications Medication Sig Dispense Refill ??? acetaminophen (Tylenol) 325 mg Tablet Take 650 mg by mouth every 4 hours as needed for Pain. ??? amoxicillin (Amoxil) 500 mg Capsule TAKE FOUR CAPSULES BY MOUTH 1 HOUR PRIOR TO DENTAL PROCEDURE ??? ampicillin (PRINCIPEN) 500 mg Capsule Take 4 capsules by mouth as needed. Take 4 capsules one hour prior to dental procedures. (Patient not taking: Reported on 03/05/2021) 12 capsule 0 ??? naproxen sodium (ANAPROX) 220 mg Tablet Take 1 tablet by mouth 2 times daily (with meals). (Patient not taking: Reported on 11/29/2019) 60 tablet 0 Current Facility-Administered Medications Medication Dose Route Frequency Provider Last Rate Last Admin ??? mupirocin (BACTROBAN) 2 % ointment 1 each 1 each Topical (Top) BID Rod Valdez MD 1 eachat 03/06/21 1127 Social History Occupational History ??? Not on file Tobacco Use ??? Smoking status: Former Smoker Packs/day: 0.50 Years: 15.00 Pack years: 7.50 Types: Cigarettes Quit date: 07/18/2003 Years since quittin.6 ??? Smokeless tobacco: Never Used Vaping Use ??? Vaping Use: Never used Substance and Sexual Activity ??? Alcohol use: Yes Alcohol/week: 0.0 standard drinks Comment: less than 1 per week ??? Drug use: No ??? Sexual activity: Not on file Family [...] last 24 hrs Heart Rate Heart Rate: (!) 45 Heart Rate: [45-46] Blood Pressure BP: 122/84 BP: (122-124)/(80-84) SpO2 SpO2: 100 % SpO2: [100 %] Estimated body mass index is 32.43 kg/m?? as calculated from the following: Height as of this encounter: 177.8 cm (5' 10). Weight as of this encounter: 102.5 kg (226 lb). Physical Exam Constitutional: She is oriented [...] She had no drift with extension at left knee Ambulates without aide. She has a non tender discrete subcutaneous nodule left lower anterior leg, the skin over this is without erythema or increased warmth, it is about 1cm in largest dimension, the veins distal,medial and proximal to this are without engorgement, tenderness or palpable cord, there is no pitting edema evident distally. About her medial knee and medial upper leg is a pale green hue about 4x6 cm without increased warmth, there is TTP over the medial tibial plateau, there is no palpable cord. Neurological: She is alert and oriented to person, place, and time. She displays no tremors at restor on intent. Skin: Skin is warm and dry. She is not diaphoretic. No pallor. Psychiatric: She has a normal mood and affect. Her behavior is normal. Judgment and thought contentnormal. Lab Results Component Value Date WBC 6.9 03/05/2021 RBC 4.45 03/05/2021 HGB 13.2 03/05/2021 HCT 40.3 03/05/2021 MCV 90.6 03/05/2021 MCH 29.7 03/05/2021 MCHC 32.8 03/05/2021 PLATELET 249 03/05/2021 RDWCV 12.5 03/05/2021 Lab Results Component Value Date NA 143 03/05/2021 K 4.8 03/05/2021 CL 106 03/05/2021 CO2 28 03/05/2021 BUN 19 (H) 03/05/2021 CREATININE 0.78 03/05/2021 GLUCOSE 89 03/05/2021 CALCIUM 10.1 03/05/2021 ESTGFR 84 03/05/2021 Lab Results Component Value Date PT 10.7 03/05/2021 INR 0.9 03/05/2021 PTT 32 03/05/2021 Lab Results Component Value Date CRP 2.6 09/03/2020 Lab Results Component Value Date SEDRATE 17 09/03/2020 Estimated Creatinine Clearance: 103.1 mL/min (based on SCr of 0.78 mg/dL). Xray - TKA left knee Bone scan - IMPRESSION Above findings are concerning for loosening or possibly infection of the left knee prosthesis. ?? A/P 1. Preop examination 2. Mechanical loosening of internal left knee prosthetic joint, subsequent encounter She elects to proceed with the left TKA revision. She understands that the aspiration with culture will determine whether she can have a single stage versus 2- stage revision based on the presence ofPJI. So far her prior aspiration and inflammatory markers from last year have been reassuring for the absence of PJI. 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
--- OUTSIDE RECORDS SUMMARY | 2024-04-26 15:48 | XMS_ITS | Encounter Summary ---
Author Organization [facility] Address [facility] [place] [address] Care Team Providers Care Duplicating Machine Operator Name Role Phone Sari Hay MD Primary Care Provider [phone] Encounter Details Date Type Department Care Team (Late st Contact Info) Description 09/10/2021 Telephone [place] [phone] Rod Valdez MD [facility] [place] [address] Social History Tobacco Use Types Packs/Day Years [...] Notes * Telephone Encounter - Hossein Griffin Geetha - 09/11/2021 3:50 PM EST Spoke with the patient to follow up with her about how she is doing now, 24 hours later. 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 She did bring one crutchwith her but did not need it. She reports that her swelling has reduced and she feels more solid now. She was concerned that she may hyperextend, but this has not occurred. She will continue to manage everything conservatively and will contact our office if there are any adverse changes. She indicates that she may want to still be seen but will call later this week or early next week once her schedule quiets some. All questions and concerns were answered at this time. Patient will follow up PRN. * Telephone Encounter - Hossein Griffin - 09/10/2021 4:00 PM EST After discussing the patient's case with my colleague Allie Lucas, spoke with patient her left knee pain after a slip and fall on the ice this afternoon. Patient reports being able to fully weight-bear however, she does find some relief from utilizing crutches for ambulation. She notes that her swelling is the size of a football and is most noticeable in the space inferior to the patella before the tibial tuberosity. I advised the patient under the direction of Dr. Hdz that if she were to come in today, there wouldbe little that we could do in clinic for her. We further discussed that working on edema control for the next 24 hours would give a much better picture as to the urgency/need for being seen. I advised her to ice for 20 minutes, remove the ice, wait for the area to rewarm, then reapply as she is able to over the next 24 hours. I also advised her on proper elevation and recommended utilizing compression. She does not have compression sleeves however she does have lightheadedness that may be helpful with compression. I will follow up with the patient sometime tomorrow afternoon and see how she is doing. She knows to call the office if there is a significant change in her symptoms and she always has the option of being seen in the emergency department if she deems that fitting. * Telephone Encounter - Allie Lucas CMA - 09/10/2021 2:26 PM EST I called Pt back after she called in stating she had slipped and fell on the ice. What happened? Pt stated She was walking outside when she slipped on a patch of ice. Her right leg went out from under her, so the left knee took the hit. Pain scale? pt stated her pain is an 7-8/10. Can you bend the Knee? Pt stated around 60 degrees Is there any brakes in the skin? Pt stated no What have you done for the pain? Pt stated she iced it for 40min and elevated it. Pt also stated that it was swollen the size of a football and then she is using crutches to get around because she dose not think she could walk with out them. She was not using them before. I told her that I would bring this info to my colleagues and that some one would call her back. documented in this encounter Plan of Treatment Not on file documented as of this encounter Visit Diagnoses Not on filedocumented in this encounter Care Teams Duplicating Machine Operator Relationship Specialty Start Date End Date Sari Hay MD [address] [place] [address] PCP - General 05/21/11 documented as of this encounter
--- OUTSIDE RECORDS SUMMARY | 2024-04-26 15:49 | XMS_ITS | Encounter Summary ---
Author [facility] [place] [address] Care Team Providers Care Word Processor Operator Name Role Phone Sari Hay MD Primary Care Provider [phone] Encounter Details Date Type Department Care Team (Late st Contact Info) Description 07/01/2019 Telephone [place] [phone] Juan A Dalal RN Social History Tobacco Use Types Packs/Day Years Used Date Smoking Tobacco: Former Cigarettes 0.5 15 1 - 07/18/2003 Smokeless Tobacco: Never Alcohol Use Standard Drinks/Week Comments Yes 0 (1 standard drink = 0.6 oz pur e alcohol) Rare Sex and Gender Information Value Date Recorded Sex Assigned at Not on file Gender Identity Not on file Sexual Orientation Not on file documented as of this encounter Miscellaneous Notes * Telephone Encounter - Juan A Dalal RN - 07/01/2019 1:47 PM EDT Telephone call from patient, 53 year-old woman with history of L TKA (09/2017),??recent arthroscopic surgery on 01/18 and aspirate on 02/09 for knee swelling, admitted to [facility] for prosthetic joint infection??s/p??poly-swap 02/10/2019. 03/03/2019 ID note: Transition to oral ciprofloxacin 750 (weight based dosing to optimize penetration to bone) with rifampin 300 mg po bid on 03/16/19 in combination for a total of 6 months of therapy from 02/15 (start date of combination therapy) Assessment: patient calls today to report a -40 lbs (18 kg) weight loss since February 2019. Last weightin May ~276 lbs, currently ~235 lbs. Has been adhering to healthy dietary habits and is part of theWeight Watchers program. Reports that when taking her evening time doses of Cipro and Rifampin, feeling slightly nauseated, which is new for her-has only recently experienced this in the past week, and only with her evening dose. Reports she typically takes her antibiotics within 1 hour after eating supper. Plan: -Communicate note to Dr. Lerner and Dr. King, as is on a weight based dosing regimen of antibiotics. documented in this encounter Plan of Treatment Not on file documented as of this encounter Visit Diagnoses Not on filedocumented in this encounter Care Teams Word Processor Operator Relationship Specialty Start Date End Date Sari Hay MD [address] [place] [address] PCP - General 05/21/11 documented as of this encounter
--- OUTSIDE RECORDS SUMMARY | 2024-04-26 15:49 | XMS_ITS | Encounter Summary ---
Author Organization [facility] Address [facility] [place] [address] Care Team Providers Care Flat Finisher Name Role Phone Sari Hay MD Primary Care Provider [phone] Reason for Visit * Reason Comments Follow Up Fracture cast off l distal ra dius fx DOI 09/05/19 Encounter Details Date Type Department Care Team (Late st Contact Info) Description 09/30/2019 4:00 PM EST Office [place] [address] Gege Harrell, [facility] [place] [address] Closed Colles' fracture of left radius with routine healing, subsequent encounter Social History Tobacco Use Types [...] Sign Reading Time Taken Comments Blood Pressure 108/68 09/30/2019 3:14 PM EST Pulse 58 09/30/2019 3:14 PM EST Temperature - - Respiratory Rate - - Oxygen Saturation - - Inhaled Oxygen Concentration - - Weight 107.2 kg (236 lb 5.3 oz) 09/30/2019 3:14 PM EST last reported Height 177.8 cm (5' 10) 09/30/2019 3:1 4 PM EST last reported Body Mass Index 33.91 09/30/2019 3:14 PM EST documented in this encounter Progress Notes * Gege Harrell PA - 09/30/2019 4:00 PM EST PATIENT NAME: Sissy Eugene AGE: 53 y.o. MR#: [id number] DATE OF VISIT: 09/30/2019 CHIEF COMPLAINT: left distal radius fracture HISTORY OF PRESENT ILLNESS: Ms. Eugene is a 53 y.o. female who comes into clinic today for evaluation of the left wrist. Was walking the dog 09/12/19 and slipped on ice. Had immediate left wrist pain.Was placed into splint by PCP initially, and transitioned to cast 09/14/19. She is here today for repeat xrays to make sure fracture has not shifted. Pain is minimal. Had slightly more left wrist pain when she was doing more activity over the holidays. She is not having difficulty with sleeping. 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 Past medical history: Patient Active Problem List Diagnosis Date Noted ??? Obesity, Class II, BMI 35-39.9 02/15/2019 ??? Postoperative anemia due to acute blood loss 02/14/2019 ? ? s/p left knee I&D, polyethylene exchange for acute PJI with Dr. Valdez 02/10/19 02/10/2019 ??? S/P orthopedic surgery, follow-up exam 10/11/2015 ??? Hammer toe of left foot 07/18/2015 Medications: ??? ampicillin (PRINCIPEN) 500 mg Capsule ??? rifAMPin (RIFADIN) 300 mg Capsule ??? gabapentin (NEURONTIN) 300 mg Capsule ??? pantoprazole (PROTONIX) 20 mg Tablet, Delayed Release (E.C.) ??? naproxen sodium (ANAPROX) 220 mg Tablet ??? lisinopril (PRINIVIL;ZESTRIL) 30 mg Tablet Allergies: Allergies Allergen Reactions ??? Adhesive Bandage Rash ??? Codeine Nausea Only Social history: Social History Tobacco Use ??? Smoking status: Former Smoker Packs/day: 0.50 Years: 15.00 Pack years: 7.50 Types: Cigarettes Last attempt to quit: 07/18/2003 Years since quittin.2 ??? Smokeless tobacco: Never Used Substance Use Topics ??? Alcohol use: Yes Comment: Rare Review of systems: No chest pain or shortness of breath No fevers, night sweats or chills Vital signs: Most Recent Vitals: 09/30/19 1514 BP: 108/68 Pulse: 58 Physical exam: Ms. Eugene is a 53 y.o. female who is alert and oriented. She is in no acute discomfort and is resting comfortably in the exam room. No use of accessory muscles or retraction. Normal respiratory rate. Mild TTP left distal radius No TTP distal ulna No ecchymoses Able to wiggle all fingers Minimal edema left wrist, no edema left fingers or hand Able to gently do okay, thumbs up, thumb to 5th finger, finger abduction, wrist extension Wrist ROM was not tested today radial pulse 2+ Imaging studies: Xrays taken today demonstrate left distal radius fracture, nondisplaced, intraarticular. No change compared to previous films. Alignment is acceptable. Not much healing/callus present yet. Degenerative changes at radioulnar joint. Assessment and plan:: 53 y.o. year-old female left distal radius fracture 09/12/19. We had a long discussion regarding left distal radius fracture. She will have 6 weeks total of immobilization by short arm cast and will then transition to brace. She will continue to be NWB RUE. Shewould like a cast change in 2 weeks. We reviewed the imaging together which is described above. This plan was discussed with the patient and they are in agreement. All of the patient's questions were answered. The patient understand to contact us if they have any other questions or concerns. FU: 4 weeks, cast off, with wrist xrays. Will transition to brace at next visit. She would like to come in for cast change appt in 2 weeks. Does not need to see provider. Does not need xrays. Gege Harrell PA-C The above dictation was made with voice recogonition software documented in this encounter Plan of Treatment Not on file documented as of this encounter Visit Diagnoses Diagnosis Closed Colles' fracture of left radius with routine healing, subsequent encounter documented in this encounter Care Teams Flat Finisher Relationship Specialty Start Date End Date Sari Hay MD [address] [facility] [address] [place] [address] PCP - General 05/21/11 documented as of this encounter
--- OUTSIDE RECORDS SUMMARY | 2024-04-26 15:49 | XMS_ITS | Encounter Summary ---
Author Organization [facility] Address [facility] [place] [address] Care Team Providers Care Shipper/Receiver Name Role Phone Sari Hay MD Primary Care Provider [phone] Reason for Visit * Diagnostic Test (Routine) - Closed Specialty Diagnoses / Procedures Referred By Emmanuel cisneros Referred To Contact Radiology Diagnoses Status post left knee replacement Procedures NM Bone Scan 3 Phase [facility] [address] [place] [id number] [place] [address] Referral ID Status Reason Start Date Expiration Date V isits Requested Visits Authorized [id number] Closed Specialty Service Requested 07/11/2020 01/09/2022 1 1 Encounter Details Date Type Department Care Team (Late st Contact Info) Description 08/29/2020 2:50 PM EST - 08/29/2020 11:59 PM [facility] Hospital [place] [address] Rod Valdez MD [facility] [place] [address] Discharge Disposition: Home Social History Tobacco Use [...] Sig Dispensed Refills Start Date End Date ampicillin (PRINCIPEN) 500 mg CapsuleIndications:Inf ection associated with internal right knee prosthesis, initial encounter Take 4 capsules by mouth as needed. Take 4 capsules one hour prior to dental procedures. 12 capsule 07/26/2019 03/15/2021 naproxen sodium (ANAPROX) 220 mg Tablet Take 1 tablet by mouth 2 times daily (with meals). 60 tablet 02/15/2019 03/15/2021 documented as of this encounter Plan of Treatment Not on file documented as of this encounter Procedures Procedure Name Priority Date/Time Associated Diagnosis Comments NM BONE SCAN 3 PHASE Routine 08/29/2020 3:19 PM EST Status post left knee replacement documented in this encounter Results * NM Bone Scan 3 Phase (08/29/2020 3:19 PM EST) Anatomical Region Laterality Modality Nuclear Medicine Impressions 08/29/2020 4:10 PM EST Above findings are concerning for loosening or possibly infection of the left knee prosthesis. I have personally reviewed the image(s) and the resident's interpretation and agree with the findings, Anish France MD at 08/29/2020 4:10 PM Thank you for letting us participate in the care of this patient. For questions regarding this report, please contact the number below. ? Electronically signed by: Anish France MD, [facility] ([phone]), at 08/29/2020 4:10 PM Narrative 08/29/2020 4:10 PM EST EXAMINATION: NM BONE SCAN 3 PHASE CLINICAL HISTORY: Knee replaced, loosening suspected left TKA with new lucency on x-ray, pain, concern for tibial loosening TECHNIQUE: Immediately following the intravenous administration of 24.7 mCi of Tc-99m MDP, sequential images of perfusion to the knees were obtained at 2 second intervals for 60 seconds in the anterior and posterior projections. Five minutes later, blood pool images were obtained of the knees in the anterior, posterior, and lateral projections. Three hours later, a bone scan of the knees was performed with images obtained in the anterior, posterior, and lateral projections. COMPARISON: Knee radiographs dated 11/29/2019 FINDINGS: The blood flow and blood pool demonstrate diffuse soft tissue hyperemia overlying the left knee prosthesis. ?? Delayed bone phase images demonstrate moderate degree of diffuse periprosthetic activity on both sides of the tibial tray as well as along the femoral condylar portion of the prosthesis. Procedure Note Anish France MD - 08/29/2020 EXAMINATION: NM BONE SCAN 3 PHASE CLINICAL HISTORY: Knee replaced, loosening suspected left TKA with new lucency on x-ray, pain, concern for tibial loosening TECHNIQUE: Immediately following the intravenous administration of 24.7 mCi of Tc-99mMDP, sequential images of perfusion to the knees were obtained at 2 secondintervals for 60 seconds in the anterior and posterior projections. Five minutes later, blood pool images were obtained of the knees in the anterior, posterior, and lateral projections. Three hours later, a bone scan of the knees was performed with imagesobtained in the anterior, posterior, and lateral projections. COMPARISON: Knee radiographs dated 11/29/2019 FINDINGS: The blood flow and blood pool demonstrate diffuse soft tissue hyperemia overlying the left knee prosthesis. Delayed bone phase images demonstrate moderate degree of diffuseperiprosthetic activity on both sides of the tibial tray as well as along the femoralcondylar portion of the prosthesis. IMPRESSION Above findings are concerning for loosening or possibly infection of theleft knee prosthesis. I have personally reviewed the image(s) and the resident's interpretationand agree with the findings, Anish France MD at 08/29/2020 4:10 PM Thank you for letting us participate in the care of this patient. Forquestions regarding this report, please contact the number below. Rod Valdez MD [facility] [place] ORDERABLES documented in this encounter Visit Diagnoses Not on filedocumented in this encounter Care Teams Shipper/Receiver Relationship Specialty Start Date End Date Sari Hay MD [address] [facility] [address] [place] [address] PCP - General 05/21/11 documented as of this encounter
--- OUTSIDE RECORDS SUMMARY | 2024-04-26 15:49 | XMS_ITS | Encounter Summary ---
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; Medication management; Infection associated with internal left knee prosthesis, subsequent encounter; Staphylococcal infection; Nausea without vomiting; Weight loss Social History Tobacco Use Types Packs/Day Years [...] Sign Reading Time Taken Comments Blood Pressure 132/104 07/04/2019 4:44 PM EDT Pulse 94 07/04/2019 4:44 PM EDT Temperature 36.5 ??C (97.7 ??F) 07/04/2019 4:44 PM ED T Respiratory Rate - - Oxygen Saturation 99% 07/04/2019 4:44 PM EDT RA Inhaled Oxygen Concentration - - Weight 107.2 kg (236 lb 6.4 oz) 07/04/2019 4:44 PM EDT Height - - Body Mass Index 33.92 05/18/2019 2:48 PM EDT documented in this encounter Progress Notes * Michael Lerner MD - 07/04/2019 4:30 PM EDT Infectious Diseases Follow-Up Note HPI: Ms. Eugene is a 53y/o F who underwent a left TKA in 09/2017 that was complicated by ongoing stiffness for which she returned to the OR on 01/18/19 for arthroscopic debridement of fibrotic material/adhesions. There was no evidence of manasa infection at the time of this procedure, but she developed a possible hematoma and a subsequent PJI for which she was taken back to the OR on 02/10/19 for I&D and polyswap after the components were noted to be well fixed. Cultures from this 02/10/19 procedure grew methicillin-susceptible Staphylococcus lugdunensis. This prompted treatment with 4 weeks ofceftriaxone 2gm IV BID (based on weight >120kg) and rifampin 300mg PO BID x4 weeks (02/10/19-03/15/19), followed by a transition to ciprofloxacin 750mg PO BID plus rifampin 300mg PO BID out to 6 months (03/16/19-08/11/19). This 4 weeks of IV antibiotics prior to transition to PO antibiotics was suggested in J Antimicrob Chemother 2009;63:1264-71, with the 6 month duration for staphylococcal PJI of the knee managed with DAIR coming from the current IDSA PJI guideline (Clin Infect Dis 2013;1:e1-25). These same guidelines discuss DAIR as a viable option in cases of PJI with a well-fixed prosthesisand no sinus tract in patients with either <3 weeks of symptoms or within 30 days of the original TKA. Ms. Eugene was on the tail end of 3 weeks of symptoms at the time of her 02/10/19 procedure. She returns for follow-up today to discuss her antibiotic dosing in the setting of increasing nausea with her antibiotics and a 40 lb weight loss (on [employer]). The nausea seems to be more prominent at night and has been present for the past 1.5 weeks. She denies any vomiting or abdominal pain. She has been eating a lot of yogurt, but she denies any flatulence. She denies any diarrhea, melena, or hematochezia. She also denies any cleanses as part of her weight loss efforts. Otherwise, she denies any rash, Achilles tendon (or other tendon) pain, and palpitations on her current antibiotics. As for her knee, she states that it feels good, she is able to go up and down stairs, she takes long walks, and is looking forward to skiing this winter. She has drenching sweats x10 years related tomenopause, but she denies fever/chills. Her appetite is normal, and her energy is good. ROS: She had tingling with the last week of her IV antibiotics on the ipsilateral arm where her antibiotic was infusing. She has not had this since her antibiotic ended and her PICC line was removed. On antibiotics, she has noted some insomnia - getting 5-6hrs/night, and then sleeps 8hrs every third night. She denies any CP, SOB, cough, dysuria, or hematuria. The remainder of her ROS was negative, except as noted in the HPI. ?? I have reviewed the PMHx, Medications, Allergies, and SHx/FHx in the EMR. She has been on ciprofloxacin 750mg PO BID plus rifampin 300mg PO BID. 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 She has a tooth that needs to be extracted -- plan is to do this in 07/2019 prior tothe completion of her antibiotics. Physical Exam: Most Recent Vitals: 07/04/19 1644 BP: (!) 132/104 Pulse: 94 Temp: 36.5 ??C (97.7 ??F) SpO2: 99% Gen - Ambulatory, A&Ox3, NAD. HEENT - Anicteric, MMM, clear OP. CV - RRR, normal S1/S2, no murmur. Resp - CTAB, normal respiratory effort. Abd - Soft, NT/ND, NABS. Ext - Left knee incision C/D/I with mild swelling but no ballotable patella, TTP, erythema, warmth,drainage, or fluctuance. Trace LE edema. Skin - No rash, no jaundice. Labs: WBC 6.9 (47.2% PMNs, absolute eosinophils = 200), Hgb 14.6, Plts 241 Na 142, K 3.9, Cl 104, CO2 26, BUN 15, Cr 0.79, Glu 91 Albumin 4.7 AST 21, ALT 19, Alk Phos 128, TBili 0.2 CRP 5.1mg/L (down from 18.2mg/L on 02/10/19) Studies: EKG done today in clinic with QTc 425ms (not elevated on high dose FQ), marked sinus bradycardia toHR 46 bpm but sinus rhythm with no changes to suggest ischemia. Microbiology: Results: Prosthetic Joint Culture, Extended Hold Joint Fluid; Knee, Left Abnormal Status: Final result (Collected: 02/10/2019 12:53) Linked Results Procedure Abnormality Status Joint Culture Abnormal Final result Anaerobic Culture Final result Result Information Date and Time: Resulted: 02/15/2019 12:00 Status: Final result ??-- Abnormal Component Results Specimen Information: Knee, Left; Joint Fluid ?? Component Value Joint Culture Abnormal Moderate Staphylococcus lugdunensis Gram Stain Abnormal Cytocentrifuge Gram Stain performed Neutrophils seen Moderate Gram Positive Cocci in clusters seen Results called to and read back by Kenneth De Leon ??02/10/19 15:08:50 Susceptibility Staphylococcus lugdunensis RICHEY-CHE SUSCEPTIBILITY METHOD MINIMUM INHIBITORY CONCENTRATION Ceftriaxone 1 Clindamycin Sensitive Erythromycin Sensitive Gentamicin Sensitive Levofloxacin Sensitive Linezolid Sensitive Oxacillin Sensitive Tetracycline Sensitive Trimethoprim/Sulfa Resistant Assessment:??53y/o F who underwent a left TKA in 09/2017 that was complicated by ongoing stiffness for which she returned to the OR on 01/18/19 for arthroscopic debridement of fibrotic material/adhesions. There was no evidence of manasa infection at the time of this procedure, but she developed a possible hematoma and a subsequent PJI for which she was taken back to the OR on 02/10/19 for I&D andpolyswap after the components were noted to be well fixed. Cultures from this 02/10/19 procedure grewmethicillin-susceptible Staphylococcus lugdunensis. This prompted treatment with 4 weeks of ceftriaxone 2gm IV BID (based on weight >120kg) and rifampin 300mg PO BID x4 weeks (02/10/19-03/15/19), followed by a transition to ciprofloxacin 750mg PO BID plus rifampin 300mg PO BID out to 6 months (03/16/19-08/11/19). She has tolerated this regimen, although she has had some nausea over the past 1.5 weeks. Her labs show normal LFTs and other safety labs on long-term antibiotic therapy. Her history andexam indicate no active infection at the present time. Plan: 1. I have reduced the dose of her ciprofloxacin 500mg PO BID based on her weight loss. She will continue on rifampin 300mg PO BID (standard dose), given the normal LFTs. If the nausea doesn't juan jose, we can trial stopping the rifampin. 2. The plan is to complete 6 months of antibiotics from the 02/10/19 surgery -- end date of 08/11/19. 3. I agree with the plan to extract her infected tooth while on ciprofloxacin and rifampin. We discussed that she can take her usual amoxicillin prophylaxis prior to the dental procedure, on top of the ciprofloxacin and rifampin. 4. We discussed monitoring for signs and symptoms of a recurrent left knee infection once her antibiotics stop on 08/11/19. Recurrence risk is highest in the first month after stopping antibiotics. Overall, though, there are encouraging signs on exam and labs to suggest a good outcome. 5. Ms. Eugene will not schedule a follow-up appointment in [place] at this time, but I am always happy to see her back in clinic with any questions or concerns. Michael Lerner MD documented in this encounter Plan of Treatment Not on file documented as of this encounter Procedures Procedure Name Priority Date/Time Associated Diagnosis Comments HC C-REACTIVE PROTEIN Routine 07/04/2019 5:45 PM EDT care home current use of antibiotics Medication management Infection associated with internal left knee prosthesis, subsequent encounter HEMOGRAM Routine 07/04/2019 5:45 PM EDT care home current use of antibiotics Medication management Infection associated with internal left knee prosthesis, subsequent encounter DIFFERENTIAL, AUTOMATED Routine 07/04/2019 5:45 PM EDT care home current use of antibiotics Medication management Infection associated with internal left knee prosthesis, subsequent encounter HC CBC,PLT & AUTO DIFF Routine 07/04/2019 5:45 PM EDT care home current use of antibiotics Medication management Infection associated with internal left knee prosthesis, subsequent encounter HC VENIPUNCTURE Routine 07/04/2019 5:45 PM EDT care home current use of antibiotics Medication management Infection associated with internal left knee prosthesis, subsequent encounter EKG 12-LEAD Routine 07/04/2019 5:30 PM EDT care home current use of antibiotics Medication management Infection associated with internal left knee prosthesis, subsequent encounter documented in this encounter Results * Differential, Automated (07/04/2019 5:45 PM EDT) Neutrophils % 47.2 % [facility] Neutr Abs (ANC) 3.25 1.70 - 6.10 x10(3)/[facility] Lymphocytes % 40.3 % [facility] Lymphocytes Abs 2.8 0.9 - 3.2 x10(3)/[facility] Monocytes % 8.6 % [facility] Monocyte Abs 0.6 0.3 - 0.9 x10(3)/[facility] Eosinophils % 2.8 % [facility] Eosinophils Abs 0.2 0.0 - 0.4 x10(3)/[facility] Basophils % 1.0 % [facility] Basophils Abs 0.1 0.0 - 0.1 x10(3)/[facility] Immature Gran % 0.10 % [facility] Comment: Immature granulocytes(IG's)percentage and absolute count will include metamyelocytes, myelocytes, and promyelocytes. Blood smears from CBCs yielding IG's will be scanned manually for concordance. If this scan disagrees with the automated IG or if promyelocytes are noted, a manual differential will be performed. Lorrie Gran Abs 0.01 0.00 - 0.04 x10(3)/[facility] Blood specimen (specimen) 07/04/2019 5:45 PM EDT 07/04/2019 5:59 PM EDT Narrative Resulting Agency Comment Spec In Lab Michael Lerner MD HEMATOLOGY ORDER DEVAN [facility] [place] [address] * (ABNORMAL) Hemogram (07/04/2019 5:45 PM EDT) WBC 6.9 4.0 - 9.5 x10(3)/[facility] RBC 5.17 4.00 - 5.21 x10(6)/[facility] Hemoglobin 14.6 11.7 - 15.5 gm/dL [facility] Hematocrit 43.4 35.7 - 45.8 % [facility] MCV 83.9 82.6 - 94.4 [facility] MCH 28.2 27.1 - 32.0 pg [facility] MCHC 33.6 31.7 - 35.0 gm/dL [facility] Platelets 241 145 - 357 x10(3)/[facility] RDWSD 45.1 37.0 - 46.0 [facility] RDWCV 14.7(H) 11.5 - 14.1 % [facility] MPV 10.2 7.6 - 12.9 [facility] nRBC % Auto 0.0 % [facility] nRBC Abs Auto 0.000 0.000 - 0.000 x10(3)/[facility] Blood specimen (specimen) 07/04/2019 5:45 PM EDT 07/04/2019 5:59 PM EDT Narrative Resulting Agency Comment Spec In Lab Michael Lerner MD HEMATOLOGY ORDER DEVAN [facility] [place] [address] * (ABNORMAL) Comprehensive metabolic panel (non-fasting) (07/04/2019 5:45 PM EDT) Glucose Lvl 91 65 - 199 mg/dL [facility] Comment:Diabetes: >=200 mg/d L plus symptoms BUN 15 8 - 18 mg/dL [facility] Creatinine 0.79 0.70 - 1.20 mg/dL [facility] Sodium 142 135 - 145 mmol/L [facility] Potassium 3.9 3.5 - 5.0 mmol/L [facility] Comment: Please note: ??Patients with WBC >100,000 may have falsely elevated Potassium levels. ??For accurate Potassium quantification in these patients send serum separator tube (gold top) for subsequent determinations. ??Contact the Clinical Chemistry Laboratory if there are any questions. Chloride 104 98 - 107 mmol/L [facility] CO2 26 22 - 31 mmol/L [facility] Anion Gap 12 5 - 15 mmol/L [facility] Calcium 9.8 8.5 - 10.5 mg/dL [facility] Total Protein 7.2 6.1 - 8.0 gm/dL [facility] Albumin 4.7 3.2 - 5.2 gm/dL [facility] AST 21 0 - 30 unit/L [facility] ALT 19 0 - 30 unit/L [facility] Alk Phos 128(H) 35 - 105 unit/L [facility] Total Bilirubin 0.2 0.2 - 1.3 mg/dL [facility] Estimated GFR 84 >=60 mL/min/1. 73 m?? [facility] Comment: The eGFR was calculated using the CKD-EPI equation. As with all creatinine based estimates of kidney function, eGFR values calculated with the CKD-EPI equation are not accurate in patients with acute kidney failure, extremes of body mass or the acutely ill. [email or web address] eGFR 98 >=60 mL/min/1. 73 m?? [facility] Comment: The eGFR was calculated using the CKD-EPI equation. As with all creatinine based estimates of kidney function, eGFR values calculated with the CKD-EPI equation are not accurate in patients with acute kidney failure, extremes of body mass or the acutely ill. [email or web address] Blood specimen (specimen) 07/04/2019 5:45 PM EDT 07/04/2019 5:59 PM EDT Narrative Resulting Agency Comment Spec In Lab Michael Lerner MD CHEMISTRY ORDERA BLES Performing Organization Address [facility] Co de Phone Number [facility] [place] [address] * (ABNORMAL) CRP, acute inflammation (07/04/2019 5:45 PM EDT) Pathologist [facility] CRP 5.1(H) <=4.9 mg/L [facility] Blood specimen (specimen) 07/04/2019 5:45 PM EDT 07/04/2019 5:59 PM EDT Narrative Resulting Agency Comment Spec In Lab Michael Lerner MD CHEMISTRY ORDERA BLES Performing Organization Address [facility] Co de Phone Number [facility] [place] [address] * EKG 12 Lead (07/04/2019 5:30 PM EDT) Ventricular rate 46 BPM MUSE SYSTEM Atrial Rate 46 BPM MUSE SYSTEM P-R Interval 200 ms MUSE SYSTEM QRS Duration 86 ms MUSE SYSTEM Q-T Interval 486 ms MUSE SYSTEM QTC Calculated (Bezet) 425 ms MUSE SYSTEM Calculated P Gay 47 degrees MUSE SYSTEM Calculated R Gay 38 degrees MUSE SYSTEM Calculated T Gay 42 degrees MUSE SYSTEM INTERPRETATION Marked sinus bradycardia Otherwise normal ECG When compared with ECG of 03-MAR-2019 11:47, Vent. 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 Encounter for long-term (current) use of antibiotics Medication management Encounter for long-term (current) use of other medications Infection associated with internal left knee prosthesis, subsequent encounter Staphylococcal infection Unspecified staphylococcus infection in conditions classified elsewhere and of unspecified site Nausea without vomiting Weight loss Loss of weight documented in this encounter Care Teams Electronics Recycler Relationship Specialty Start Date End Date Sari Hay MD [facility] [address] [place] [address] PCP - General 05/21/11 documented as of this encounter
--- OUTSIDE RECORDS SUMMARY | 2024-04-26 15:49 | XMS_ITS | Encounter Summary ---
Author Organization [facility] [place] [address] Care Team Providers Care Assistant Professor Of Psychology Name Role Phone Sari Hay MD Primary Care Provider [phone] Reason for Referral * Occupational Therapy (Routine) - Canceled Specialty Diagnoses / Procedures Referred By Emmanuel cisneros Referred To Contact Diagnoses Closed Colles' fracture of left radius with routine healing, subsequent encounter Celeste Hu APRN [facility] [place] [address] Referral ID Status Reason Start Date Expiration Date V isits Requested Visits Authorized [id number] Canceled Evaluate and Treat 10/28/2019 04/25/2020 24 24 Reason for Visit * Reason Comments Follow-up COXR L distal radius Fx DOI 09/05/19 Encounter Details Date Type Department Care Team (Late st Contact Info) Description 10/28/2019 11:20 AM EST Office [place] [phone] Celeste Hu PRINCIPAL SECRETARY [facility] [place] [address] Closed Colles' fracture of left radius with routine healing, subsequent encounter (Primary Dx) Social History Tobacco Use Types Packs/Day Years [...] Sign Reading Time Taken Comments Blood Pressure 131/87 10/28/2019 10:54 AM EST Pulse 54 10/28/2019 10:54 AM EST Temperature - - Respiratory Rate - - Oxygen Saturation - - Inhaled Oxygen Concentration - - Weight 92.5 kg (204 lb) 10/28/2019 10:54 AM EST reported Height 177.8 cm (5' 10) 10/28/2019 10:54 AM EST reported Body Mass Index 29.27 10/28/2019 10:54 AM EST documented in this encounter Progress Notes * Celeste Hu, PRINCIPAL SECRETARY - 10/28/2019 11:20 AM EST PATIENT NAME: Sissy Eugene AGE: 54 y.o. MR#: [id number] DATE OF VISIT: 10/28/2019 DATE OF INJURY/ONSET: DOI: 09/05/2019 CHIEF COMPLAINT: LEFT wrist distal radius Fx non-op HISTORY OF PRESENT ILLNESS Ms. Eugene a 54 y.o. year old female comes into clinic today for above ~7 weeks s/p above injury. She is doing well here for a planned follow up. No new injuries or falls.No numbness or tingling in her fingers. No shoulder or elbow stiffness. 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 Patient's medications, allergies, past medical, surgical, social and family histories were reviewedand updated as appropriate. ROS: Denies fever, chills, nausea, vomiting, vision change, shortness of breath, chest pain, visionchanges, headaches, bowel or bladder problem, ear, nose, sinus problem, neuro or psychiatric, or endocrine disorder not addressed above. Questionnaire Responses: myD-H Hip & Knee 10/28/2019 PROMIS-10 General Health Very Good PROMIS-10 Quality of Life Very Good PROMIS-10 Physical Health Very Good PROMIS-10 Mental Health Very Good PROMIS-10 Social Activity and Relationship Satisfaction Very Good PROMIS-10 Social Roles at Home and Work Excellent PROMIS-10 Everyday Physical Activities Completely PROMIS-10 Anxious or Depressed last 7 days Never PROMIS-10 Fatigue last 7 days None PROMIS-10 Pain last 7 days 2 PROMIS PHYSICAL HEALTH SCORE (range 16-68) 57.7 PROMIS MENTAL HEALTH SCORE (range 21-68) 56 PHYSICAL EXAM: Vitals: 10/28/19 1054 BP: 131/87 BP Location (NBP): Right arm Patient Position: Sitting BP Cuff Sizes: Adult (25-34 cm) Pulse: 54 Weight: 92.5 kg (204 lb) Height: 177.8 cm (5' 10) Body mass index is 29.27 kg/m??. Ms. Jabier yanes 54 y.o. is alert and oriented. She appears in no acute discomfort and is resting comfortably in a chair in the exam room. Inspection: Taken out of fiberass there is mild residual swelling over the distal radius but no gross deformities noted. Palpation: There is mild tenderness to palpation at the distal radius. Able to wiggle her fingers ROM: Noted stiffness from casting Dorsiflexion: 5 degrees Plantarflexion: 10 degrees Radial and ulna: Equal and symmetric to the bilateral side Strength: 5/5 in all planes Neurovascular: Hand is sensate, well perfused, distal pulses are 2+ and equal. RADIOLOGICAL STUDIES: Updated images of the left wrist reveal increased bridging callus of the distal radius fracture with no new fractures noted or change in fracture placement. The fracture line isless distinct. ASSESSMENT: 54-year-old female who is approximately 7 weeks status post left distal radius fracturenon-op treatment doing well with no change in fracture placement and increased bridging callous. PLAN: I reviewed my findings in the office today with both x-rays and clinical exam. At this time, okay to come out of [facility] into a volar wrist splint. She has a volar splint that was previouslyordered. This brace is well fitting. Advised using this brace for protection, ok to take for showering, computer work/typing activity. OT referral given to work on ROM, PRE, progress as tolerated. Avoid heavy impact activity or heavy lifting. modalities prn. Ok to use [id number] analgesics for pain such as Tylenol or over the counter NSAID's/ cool packs PRN. Reassured that there may be someswelling as she progresses out of the cast for the first few days. The patient indicates understanding of these issues and agrees with the plan. F/u 6 weeks with LEFT wrist x-ray. I have already ordered this as a future order in the computer. Sooner prn. documented in this encounter Plan of Treatment Scheduled Referrals Name Type Priority Associated Diagnoses Order Schedule Referral to Occupational Therapy Outpatient Referral Routine Closed Colles' fracture of left radius with routine healing, subsequent encounter Ordered: 10/28/2019 documented as of this encounter Results * XR Wrist 3 Views Left (11/29/2019 10:25 AM EST) Anatomical Region Laterality Modality Left Digital Radiogra phy Impressions 11/29/2019 2:10 PM EST Progressive healing of intra-articular distal radial fracture. I have personally reviewed the image(s) and the resident's interpretation and agree with the findings, Annette Pereira at 11/29/2019 2:10 PM Thank you for letting us participate in the care of this patient. For questions regarding this report, please contact the number below. ? Electronically signed by: Annette Pereira [facility] ([phone]), at 11/29/2019 2:10 PM Narrative 11/29/2019 2:10 PM EST EXAMINATION: XR WRIST 3 VIEWS LEFT CLINICAL HISTORY: left wrist fracture ? change from previous x-ray (as entered by ordering provider in the order requisition) TECHNIQUE: AP, lateral, and oblique views of the LEFT wrist COMPARISON: 10/28/2019, 09/30/2019, 09/14/2019, and 09/05/2019 FINDINGS: There has been interval decrease in visibility of the fracture lucency of the oblique intra-articular distal radial fracture, which is only faintly seen on today's study. Unchanged alignment. There is also arthropathy of the distal radioulnar joint, similar to prior. Procedure Note Annette Pereira MD - 11/29/2019 EXAMINATION: XR WRIST 3 VIEWS LEFT CLINICAL HISTORY: left wrist fracture ? change from previous x-ray (asentered by ordering provider in the order requisition) TECHNIQUE: AP, lateral, and oblique views of the LEFT wrist COMPARISON: 10/28/2019, 09/30/2019, 09/14/2019, and 09/05/2019 FINDINGS: There has been interval decrease in visibility of the fracture lucency ofthe oblique intra-articular distal radial fracture, which is only faintly seenon today's study. Unchanged alignment. There is also arthropathy of thedistal radioulnar joint, similar to prior. IMPRESSION Progressive healing of intra-articular distal radial fracture. I have personally reviewed the image(s) and the resident's interpretationand agree with the findings, Annette Pereira at 11/29/2019 2:10 PM Thank you for letting us participate in the care of this patient. Forquestions regarding this report, please contact the number below. Electronically signed by: Annette Pereira [facility]([phone]), at 11/29/2019 2:10 PM Celeste Hu APRN IMG DX ORDERABLES documented in this encounter Visit Diagnoses Diagnosis Closed Colles' fracture of left radius with routine healing, subsequent encounter- Primary Closed Colles' fracture of left radius with routine healing, subsequent encounter Presence of left artificial knee joint Knee joint replacement by other means documented in this encounter Care Teams Assistant Professor Of Psychology Relationship Specialty Start Date End Date Sari Hay MD [facility] [address] [place] [address] PCP - General 05/21/11 documented as of this encounter
--- OUTSIDE RECORDS SUMMARY | 2024-04-26 15:49 | XMS_ITS | Encounter Summary ---
Author Organization [facility] [place] [address] Care Team Providers Care Gis Manager Name Role Phone Sari Hay MD Primary Care Provider [phone] Reason for Visit * Reason Onset Date Comments Appointment 09/14/2019 looking to sched ule two new appts Encounter Details Date Type Department Care Team ([facility] Contact Info) Description 09/14/2019 [place] [address] Celeste Rain Appointment (looking to schedule two new appts) Social History Tobacco Use Types Packs/Day Years [...] encounter Miscellaneous Notes * Telephone Encounter - Rae Salinas - 09/14/2019 3:04 PM EST Patient scheduled * Telephone Encounter - Celeste Rain - 09/14/2019 12:52 PM EST Caller and relationship to patient (if other than patient): Self Phone: Best time to reach caller: any Message or Reason for Call: Patient is looking to schedule her next two cast changes. Appt Needed and Reason: Yes TBD documented in this encounter Plan of Treatment Not on file documented as of this encounter Visit Diagnoses Not on filedocumented in this encounter Care Teams Gis Manager Relationship Specialty Start Date End Date Sari Hay MD [facility] [address] [facility] [address] [place] [address] PCP - General 05/21/11 documented as of this encounter
--- OUTSIDE RECORDS SUMMARY | 2024-04-26 15:49 | XMS_ITS | Encounter Summary ---
Author Organization [facility] Address [facility] [address] Care Team Providers Care Supervisor Wood Crew Name Role Phone Sari Hay MD Primary Care Provider [phone] Reason for Visit * Reason Onset Date Comments Pre Procedure Call 12/31/2020 Encounter Details Date Type Department Care Team (Late st Contact Info) Description 12/31/2020 [place] [phone] Rod Valdez MD [facility] [place] [address] Pre Procedure Call Social History Tobacco Use [...] encounter Miscellaneous Notes * Telephone Encounter - Jessica Villa - 12/31/2020 3:09 PM EDT Who is calling?Ana Rosa Best call back number: [phone] Best time to call back between 8:00 am & 5:00 pm: anytime after 12:30 Can we leave a message? yes When is your procedure? TBD Who is your surgeon? [place] What procedure are you having?revision of left TKA What is the question you would like to ask the clinical care team? PT called today to schedule surgery for revision of LEFT TKA. Please place surgical orders so that PT may schedule. Your message will be forwarded to the clinical care team for review. documented in this encounter Plan of Treatment Not on file documented as of this encounter Visit Diagnoses Not on filedocumented in this encounter Care Teams Supervisor Wood Crew Relationship Specialty Start Date End Date Sari Hay MD [address] [place] [address] PCP - General 05/21/11 documented as of this encounter
--- OUTSIDE RECORDS SUMMARY | 2024-04-26 15:49 | XMS_ITS | Encounter Summary ---
Author Organization [facility] [place] [address] Care Team Providers Care Bookbinder Apprentice Name Role Phone Sari Hay MD Primary Care Provider [phone] Encounter Details Date Type Department Care Team (Latest Contact Info) Description 11/29/2019 10:10 AM EST Laboratory Appointment Lab [address] [place] [address] Infection associated with internal right knee prosthesis, subsequent encounter Social History Tobacco Use Types [...] Associated Diagnosis Comments HC C-REACTIVE PROTEIN Routine 11/29/2019 10:02 AM EST Infection associated with internal right knee prosthesis, subsequent encounter HEMOGRAM Routine 11/29/2019 10:02 AM EST Infection associated with internal right knee prosthesis, subsequent encounter DIFFERENTIAL, AUTOMATED Routine 11/29/2019 10:02 AM EST Infection associated with internal right knee prosthesis, subsequent encounter HC ESR-SEDIMENTATION RATE, BLOOD STAT 11/29/2019 10:02 AM EST Infection associated with internal right knee prosthesis, subsequent encounter HC VENIPUNCTURE Routine 11/29/2019 10:02 AM EST Infection associated with internal right knee prosthesis, subsequent encounter documented in this encounter Results * Differential, Automated (11/29/2019 10:02 AM EST) Neutrophils % 49.8 % [facility] Neutr Abs (ANC) 3.05 1.70 - 6.10 x10(3)/[facility] Lymphocytes % 37.4 % [facility] Lymphocytes Abs 2.3 0.9 - 3.2 x10(3)/[facility] Monocytes % 8.2 % [facility] Monocyte Abs 0.5 0.3 - 0.9 x10(3)/[facility] Eosinophils % 3.4 % [facility] Eosinophils Abs 0.2 0.0 - 0.4 x10(3)/[facility] Basophils % 1.0 % [facility] Basophils Abs 0.1 0.0 - 0.1 x10(3)/[facility] Immature Gran % 0.20 % [facility] Comment: Immature granulocytes(IG's)percentage and absolute count will include metamyelocytes, myelocytes, and promyelocytes. Blood smears from CBCs yielding IG's will be scanned manually for concordance. If this scan disagrees with the automated IG or if promyelocytes are noted, a manual differential will be performed. Lorrie Gran Abs 0.01 0.00 - 0.04 x10(3)/[facility] Blood specimen (specimen) 11/29/2019 10:02 AM EST 11/29/2019 10:17 AM EST Narrative Resulting Agency Comment Spec In Lab Rod Valdez MD HEMATOLOGY ORDERABLE S [facility] [place] [address] * Hemogram (11/29/2019 10:02 AM EST) WBC 6.1 4.0 - 9.5 x10(3)/[facility] RBC 4.85 4.00 - 5.21 x10(6)/[facility] Hemoglobin 14.6 11.7 - 15.5 gm/dL [facility] Hematocrit 44.4 35.7 - 45.8 % [facility] MCV 91.5 82.6 - 94.4 [facility] MCH 30.1 27.1 - 32.0 pg [facility] MCHC 32.9 31.7 - 35.0 gm/dL [facility] Platelets 245 145 - 357 x10(3)/[facility] RDWSD 40.3 37.0 - 46.0 [facility] RDWCV 12.0 11.5 - 14.1 % [facility] MPV 10.2 7.6 - 12.9 [facility] nRBC % Auto 0.0 % [facility] nRBC Abs Auto 0.000 0.000 - 0.000 x10(3)/[facility] Blood specimen (specimen) 11/29/2019 10:02 AM EST 11/29/2019 10:17 AM EST Narrative Resulting Agency Comment Spec In Lab Rod Valdez MD HEMATOLOGY ORDERABLE S [facility] [place] [address] * Sedimentation rate (11/29/2019 10:02 AM EST) Sed Rate 11 2 - 39 mm/hr [facility] Comment: Effective September 14, 2019 new capillary photometric technology has resulted in a change in reference ranges. It is recommended that each ESR result be reviewed with its own age appropriate reference range. Blood specimen (specimen) 11/29/2019 10:02 AM EST 11/29/2019 10:17 AM EST Narrative Resulting Agency Comment Spec In Lab Rod Valdez MD HEMATOLOGY ORDERABLE S Performing Organization Address City/[facility] Co de Phone Number [facility] [place] [address] * CRP, acute inflammation (11/29/2019 10:02 AM EST) CRP 1.5 <=4.9 mg/L [facility] Blood specimen (specimen) 11/29/2019 10:02 AM EST 11/29/2019 10:17 AM EST Narrative Resulting Agency Comment Spec In Lab Rod Valdez MD CHEMISTRY ORDERABLES Performing Organization Address [facility] Co de Phone Number [facility] [place] [address] documented in this encounter Visit Diagnoses Diagnosis Infection associated with internal right knee prosthesis, subsequent encounter documented in this encounter Care Teams Bookbinder Apprentice Relationship Specialty Start Date End Date Sari Hay MD [facility] [address] [place] [address] PCP - General 05/21/11 documented as of this encounter
--- OUTSIDE RECORDS SUMMARY | 2024-04-26 15:49 | XMS_ITS | Encounter Summary ---
Author Organization [facility] Address [facility] [place] [address] Care Team Providers Care New Business Clerk Name Role Phone Sari Hay MD Primary Care Provider [phone] Encounter Details Date Type Department Care Team (Late st Contact Info) Description 01/04/2021 Orders [place] [address] Rod Valdez MD [facility] [place] [address] Status post left knee replacement; Mechanical loosening [...] * XR Knee Standing Alignment AP Lat [place] Left (04/11/2021 10:51 AM EDT) Anatomical Region [...] questions please contact the health career development coordinator that requested your imaging first. ? Narrative 04/11/2021 2:53 PM EDT EXAMINATION: XR [...] have questions please contactthe health career development coordinator that requested your imaging first. Rod Valdez MD IMG DX ORDERABLES * APTT (03/05/2021 2:39 PM EDT) PTT 32 25 - 37 sec [facility] Comment: The PTT is NOT appropriate for heparin monitoring. Use the Anti-Xa level for heparin monitoring (HEP UFH) or LMWH monitoring (HEP LMW). A PTT less than 37 seconds generally indicates adequate hemostasis. Blood 03/05/2021 2:39 PM EDT 03/05/2021 2:50 PM EDT Narrative Resulting Agency Comment Spec In Lab Rod Valdez MD HEMATOLOGY ORDERABLE S Performing Organization Address [facility] Co de Phone Number [facility] [place] [address] * Prothrombin Time (03/05/2021 2:39 PM EDT) PT 10.7 9.4 - 12.5 sec [facility] INR 0.9 [facility] Comment: An INR <2.0 indicates [...] MD HEMATOLOGY ORDERABLE S Performing Organization Address [facility] Co de Phone Number [facility] [place] [address] * (ABNORMAL) Basic Metabolic Panel (non-fasting) (03/05/2021 2:39 PM EDT) Glucose Lvl 89 65 - 199 mg/dL [facility] Comment:Diabetes: >=200 mg/d L plus symptoms BUN 19(H) 8 - 18 mg/dL [facility] Creatinine 0.78 0.70 - 1.20 mg/dL [facility] Sodium 143 135 - 145 mmol/L [facility] Potassium 4.8 3.5 - 5.0 mmol/L [facility] Comment: Please note: ??Patients with WBC >100,000 may have falsely elevated Potassium levels. ??For accurate Potassium quantification in these patients send serum separator tube (gold top) for subsequent determinations. ??Contact the Clinical Chemistry Laboratory if there are any questions. Chloride 106 98 - 107 mmol/L [facility] CO2 28 22 - 31 mmol/L [facility] Anion Gap 9 5 - 15 mmol/L [facility] Calcium 10.1 8.5 - 10.5 mg/dL [facility] Estimated GFR 84 >=60 mL/min/1. 73 m?? [facility] Comment: This patient? s estimated [...] In Lab Rod Valdez MD CHEMISTRY ORDERABLES [facility] [place] [address] documented in this encounter Visit Diagnoses Diagnosis Status post left knee replacement Mechanical loosening of internal left knee prosthetic joint, subsequent encounter Pain of left lower extremity Status post left knee replacement Mechanical loosening of internal left knee prosthetic joint, subsequent encounter Pain of left lower extremity documented in this encounter Care Teams New Business Clerk Relationship Specialty Start Date End Date Sari Hay MD [address] [place] [address] PCP - General 05/21/11 documented as of this encounter
--- OUTSIDE RECORDS SUMMARY | 2024-04-26 15:49 | XMS_ITS | Encounter Summary ---
Author Organization [facility] Address [facility] [place] [address] Care Team Providers Care Precinct Captain Name Role Phone Sari Hay MD Primary Care Provider [phone] Reason for Visit * Reason Comments Aftercare Of Tjr L TKR rev 02/10/2019 Encounter Details Date Type Department Care Team (Late st Contact Info) Description 09/03/2020 11:00 AM EST Office [place] [address] Teressa Taylor PA [facility] [place] [address] Infection associated with internal right knee prosthesis, initial encounter Social History Tobacco Use Types Packs/Day [...] Sign Reading Time Taken Comments Blood Pressure 134/80 09/03/2020 11:13 AM EST Pulse 56 09/03/2020 11:13 AM EST Temperature 37.1 ??C (98.8 ??F) 09/03/2020 11:[address] oral Respiratory Rate - - Oxygen Saturation - - Inhaled Oxygen Concentration - - Weight 97.5 kg (215 lb) 09/03/2020 11:13 AM EST pt reported Height 177.8 cm (5' 10) 09/03/2020 11:13 AM EST pt reported Body Mass Index 30.85 09/03/2020 11:13 AM EST documented in this encounter Progress Notes * Teressa Taylor PA - 09/03/2020 11:00 AM EST PATIENT NAME: Sissy Eugene AGE: 54 y.o. MR#: [id number] DATE OF VISIT: 09/03/2020 CHIEF COMPLAINT: FU, left knee pain Arthroplasty/Orthopaedic History: 1. Left TKA 09/29/17 outside facility. 2. Left TKA polyswap 02/10/19 ([facility]) HISTORY OF PRESENT ILLNESS: Ms. Eugene is a 54 y.o. female who comes into clinic today for evaluation of the left knee. She was last in to see LILLIAN Le for left knee pain. At this visit she had her knee aspirated and plans were made for bone scan to evaluate for loose hardware. Due to the covid pandemic she put this off. Her knee began feeling better and when she received a call from the clinic regarding rescheduling the knee scan she declined. She ultimately elected to obtain the bone scan as her pain has become significantly more bothersome. She is unable to go down stairs without pain. . She needs to tilther body sideways to be able to ambulate the stairs. She has pain in the lateral, popliteal and anterior knee. She has noted a decrease in her range of ,motion and feels that she now walks with a limp. She denies fever, chills, drenching night sweats. Past medical history: Patient Active Problem List Diagnosis Date Noted ??? Closed fracture of distal end of left radius with routine healing, DOI: 09/05/2019 10/29/2019 ??? Obesity, Class II, BMI 35-39.9 02/15/2019 ? ? s/p left knee I&D, polyethylene exchange for acute PJI with Dr. Valdez 02/10/19 02/10/2019 ??? Hammer toe of left foot 07/18/2015 Medications: ??? ampicillin (PRINCIPEN) 500 mg Capsule ??? naproxen sodium (ANAPROX) 220 mg Tablet Allergies: Allergies Allergen Reactions ??? Adhesive Bandage Rash ??? Codeine Nausea Only Social history: Social History Tobacco Use ??? Smoking status: Former Smoker Packs/day: 0.50 Years: 15.00 Pack years: 7.50 Types: Cigarettes Quit date: 07/18/2003 Years since quittin.1 ??? Smokeless tobacco: Never Used Substance Use Topics ??? Alcohol use: Yes Comment: less than 1 per week Review of systems: No chest pain or shortness of breath No fevers, night sweats or chills Vital signs: Blood pressure 134/80, pulse 56, temperature 37.1 ??C (98.8 ??F), height 177.8 cm (5' 10), weight 97.5 kg (215 lb). Physical exam: Ms. Eugene is a 54 y.o. female who is alert and oriented. She is in no acute discomfort and is resting comfortably in the exam room. Knee Exam: left no Erythema, edema, ecchymosis noted Knee ROM: Extension:5 Flexion: 90 Alignment: 0-4 degrees Neutral Stability: A/P Translation <5mm. Varus (lateral stability) <5mm Valgus (medial stability) <5mm Extension La degrees or less Patella Tracking: Normal Skin Integrity: Normal PT/DP pulses 2+. Superficial peroneal, deep peroneal, sural, saphenous, and tibial nerves intact totouch. Knee Effusion: None. Ecchymosis: none Patella: Patellar apprehension test: no Patellar compression test: no Tenderness: medial joint line and lateral joint line Imaging studies: Bone scan 08/29/2020: Blood pool as well as bone scan indicate concern for inflammation of the tissues as well as increased bony turnover. Assessment and plan:: 54 y.o. year-old female with bone scan and symptoms concerning for loose hardware of the left TKA. We had a long discussion regarding the nature of Sissy Eugene's chief complaint. We reviewed the imaging together Bone scan 08/29/2020: Blood pool as well as bone scan indicate concern for inflammation of the tissues as well as increased bony turnover. Clinically Sissy Eugene has decreased range of motion than at prior visits as well as tenderness along the joint line. With valgus pressure I am able to appreciate a clunk that is new as well. The presentation is most consistent with loosening of her components. I would recommend obtaining infectious labs after clinic and scheduling a follow visit to discuss surgical planning options with Dr. Valdez. Lab Results Component Value Date SEDRATE 17 09/03/2020 CRP (mg/L) Date Value 09/03/2020 2.6 11/29/2019 1.5 07/04/2019 5.1 (H) 02/10/2019 18.2 (H) Lab Results Component Value Date WBC 7.0 09/03/2020 Labs obtained after clinic were reassuring. I have called Yoko as was our plan. She will be coming in to discuss surgical options with potential re aspiration with Dr. Valdez. This plan was discussed with the patient and they are in agreement. All of the patient's questions were answered. The patient understand to contact us if they have any other questions or concerns. FU: With Dr. Valdez to discuss aspiration/revision TKA on the left. Teressa Taylor PA-C The above dictation was made with voice recogonition software documented in this encounter Plan of Treatment Not on file documented as of this encounter Procedures Procedure Name Priority Date/Time Associated Diagnosis Comments HC C-REACTIVE PROTEIN Routine 09/03/2020 12:42 PM EST Infection associated with internal right knee prosthesis, initial encounter HEMOGRAM Routine 09/03/2020 12:42 PM EST Infection associated with internal right knee prosthesis, initial encounter DIFFERENTIAL, AUTOMATED Routine 09/03/2020 12:42 PM EST Infection associated with internal right knee prosthesis, initial encounter HC VENIPUNCTURE Routine 09/03/2020 12:42 PM EST Infection associated with internal right knee prosthesis, initial encounter HC CBC,PLT & AUTO DIFF Routine 09/03/2020 12:42 PM EST Infection associated with internal right knee prosthesis, initial encounter documented in this encounter Results * Differential, Automated (09/03/2020 12:42 PM EST) Neutrophils % 54.3 % [facility] Neutr Abs (ANC) 3.81 1.70 - 6.10 x10(3)/[facility] Lymphocytes % 35.2 % [facility] Lymphocytes Abs 2.5 0.9 - 3.2 x10(3)/[facility] Monocytes % 6.8 % [facility] Monocyte Abs 0.5 0.3 - 0.9 x10(3)/[facility] Eosinophils % 2.6 % [facility] Eosinophils Abs 0.2 0.0 - 0.4 x10(3)/[facility] Basophils % 1.0 % [facility] Basophils Abs 0.1 0.0 - 0.1 x10(3)/[facility] Immature Gran % 0.10 % [facility] Comment: Immature granulocytes(IG's)percentage and absolute count will include metamyelocytes, myelocytes, and promyelocytes. Blood smears from CBCs yielding IG's will be scanned manually for concordance. If this scan disagrees with the automated IG or if promyelocytes are noted, a manual differential will be performed. Lorrie Gran Abs 0.01 0.00 - 0.04 x10(3)/[facility] Blood specimen (specimen) 09/03/2020 12:42 PM EST 09/03/2020 12:55 PM EST Narrative Resulting Agency Comment Spec In Lab Teressa ANDERSEN HEMATOLOGY ORDERABLE S [facility] [place] [address] * Hemogram (09/03/2020 12:42 PM EST) WBC 7.0 4.0 - 9.5 x10(3)/[facility] RBC 5.05 4.00 - 5.21 x10(6)/[facility] Hemoglobin 14.5 11.7 - 15.5 gm/dL [facility] Hematocrit 44.0 35.7 - 45.8 % [facility] MCV 87.1 82.6 - 94.4 fL [facility] MCH 28.7 27.1 - 32.0 pg [facility] MCHC 33.0 31.7 - 35.0 gm/dL [facility] Platelets 234 145 - 357 x10(3)/[facility] RDWSD 40.5 37.0 - 46.0 fL [facility] RDWCV 12.9 11.5 - 14.1 % [facility] MPV 9.9 7.6 - 12.9 fL [facility] nRBC % Auto 0.0 % [facility] nRBC Abs Auto 0.000 0.000 - 0.000 x10(3)/[facility] Blood specimen (specimen) 09/03/2020 12:42 PM EST 09/03/2020 12:55 PM EST Narrative Resulting Agency Comment Spec In Lab Teressa ANDERSEN HEMATOLOGY ORDERABLE S [facility] [place] [address] * Sedimentation rate (09/03/2020 12:42 PM EST) [facility] Sed Rate 17 2 - 39 mm/hr [facility] Comment: Effective September 14, 2019 new capillary photometric technology has resulted in a change in reference ranges. It is recommended that each ESR result be reviewed with its own age appropriate reference range. Blood specimen (specimen) 09/03/2020 12:42 PM EST 09/03/2020 12:55 PM EST Narrative Resulting Agency Comment Spec In Lab Ammy Latham MD HEMATOLOGY ORDERABLE S [facility] [place] [address] * CRP, acute inflammation (09/03/2020 12:42 PM EST) [facility] CRP 2.6 <=4.9 mg/L [facility] Blood specimen (specimen) 09/03/2020 12:42 PM EST 09/03/2020 12:55 PM EST Narrative Resulting Agency Comment Spec In Lab Ammy Latham MD CHEMISTRY ORDERABLES [facility] [place] [address] documented in this encounter Visit Diagnoses Diagnosis Infection associated with internal right knee prosthesis, initial encounter documented in this encounter Care Teams Precinct Captain Relationship Specialty Start Date End Date Srai Hay MD [facility] [address] [place] [address] PCP - General 05/21/11 documented as of this encounter
--- OUTSIDE RECORDS SUMMARY | 2024-04-26 15:49 | XMS_ITS | Encounter Summary ---
Author Organization [facility] Address [facility] [place] [address] Care Team Providers Care Cyber Instructor Name Role Phone Sari Hay MD Primary Care Provider [phone] Encounter Details Date Type Department Care Team (Late st Contact Info) Description 09/12/2020 3:36 PM EST - 09/12/2020 11:59 PM [facility] Hospital Encounter XRay at [address] [place] [address] Rod Valdez MD [facility] [place] [address] Status post left knee replacement Discharge Disposition: Home Social History Tobacco Use [...] Comments XR KNEE STANDING ALIGNMENT AP LAT [place] SKYLINE LEFT Routine 09/12/2020 4:06 PM EST Status post left knee replacement documented in this encounter Results * XR Knee Standing Alignment AP Lat [place] Left (09/12/2020 4:06 PM EST) Anatomical Region Laterality Modality Left Digital Radiogra phy Impressions 09/12/2020 4:18 PM EST Medial deviation of the right mechanical access by 13 mm. Lateral deviation of the left mechanical axis by 5 mm. Status post left total knee arthroplasty without evident complication. Thank you for letting us participate in the care of this patient. For questions regarding this report, please contact the number below. ? Narrative 09/12/2020 4:18 PM EST EXAMINATION: XR KNEE STANDING ALIGNMENT AP LAT [place] SKYLINE LEFT CLINICAL HISTORY: Left ??TKA revision surgical discussion TECHNIQUE: Separate images of the pelvis, knees and feet were acquired in the AP projection with the patient standing. These images were stitched together to form a composite image of the pelvis and legs allowing for evaluation of lower extremity alignment in the weight bearing position. COMPARISON: Knee radiographs dated 11/29/2019 FINDINGS: Medial deviation of the right mechanical axis by 13 mm. Lateral deviation of the left mechanical axis by 5 mm. Status post left total knee arthroplasty with patellar resurfacing, unchanged in alignment. No evident hardware complication. There is no left knee joint effusion. Large loculated posterior left knee joint effusion. Procedure Note Dez Tapia DO - 09/12/2020 EXAMINATION: XR KNEE STANDING ALIGNMENT AP LAT [place] SKYLINE LEFT CLINICAL HISTORY: Left TKA revision surgical discussion TECHNIQUE: Separate images of the pelvis, knees and feet were acquired inthe AP projection with the patient standing. These images were stitched togetherto form a composite image of the pelvis and legs allowing for evaluation oflower extremity alignment in the weight bearing position. COMPARISON: Knee radiographs dated 11/29/2019 FINDINGS: Medial deviation of the right mechanical axis by 13 mm. Lateral deviation of the left mechanical axis by 5 mm. Status post left total knee arthroplasty with patellar resurfacing,unchanged in alignment. No evident hardware complication. There is no left knee joint effusion. Large loculated posterior left knee joint effusion. IMPRESSION Medial deviation of the right mechanical access by 13 mm. Lateral deviation of the left mechanical axis by 5 mm. Status post left total knee arthroplasty without evident complication. Thank you for letting us participate in the care of this patient. Forquestions regarding this report, please contact the number below. Rod Valdez MD IMG DX ORDERABLES documented in this encounter Visit Diagnoses Diagnosis Status post left knee replacement documented in this encounter Care Teams Cyber Instructor Relationship Specialty Start Date End Date Sari Hay MD [facility] [address] [place] [address] PCP - General 05/21/11 documented as of this encounter
--- OUTSIDE RECORDS SUMMARY | 2024-04-26 15:49 | XMS_ITS | Encounter Summary ---
Author Organization [facility] [place] [address] Care Team Providers Care Manager Sign Name Role Phone Sari Hay MD Primary Care Provider [phone] Reason for Referral * Consultation (Routine) - Specialty Diagnoses / Procedures Referred By Emmanuel cisneros Referred To Contact Orthopaedics Diagnoses Pain in wrist, unspecified laterality LEFT WRIST PAIN-? NON DISPLACED FX Sari Hay MD [facility] [address] [facility] [address] [place] [address] [facility] [address] [place] [id number] Referral ID Status Reason Start Date Expiration Date V isits Requested Visits Authorized [id number] Consult, Test & Treat 09/05/2019 12/05/2019 6 6 Encounter Details Date Type Department Care Team (Late st Contact Info) Description 09/05/2019 [place] [address] Prisca Mcdaniel, RN Social History Tobacco Use Types Packs/Day [...] encounter Miscellaneous Notes * Telephone Encounter - Prisca Mcdaniel RN - 09/05/2019 12:02 PM EST Patient fell and states that her broke her wrist yesterday and would like to [facility] of [facility] where she was seen yesterday. She states her fracture was reducedand splinted and she was advised to see someone in 7 days for follow up. refferal placed, our team will reach out to schedule once we have received imaging and notes documented in this encounter Plan of Treatment Scheduled Referrals Name Type Priority Associated Diagnoses Orde r Schedule Referral to Orthopaedics Outpatient Referral Routine Pain in wrist, unspecified laterality Ordered: 09/05/2019 documented as of this encounter Visit Diagnoses Diagnosis Pain in wrist, unspecified laterality documented in this encounter Care Teams Manager Sign Relationship Specialty Start Date End Date Sari Hay MD [address] [place] [address] PCP - General 05/21/11 documented as of this encounter
--- OUTSIDE RECORDS SUMMARY | 2024-04-26 15:49 | XMS_ITS | Encounter Summary ---
Author Organization [facility] Address [facility] [place] [address] Care Team Providers Care Gyroscopic Instrument Mechanic Name Role Phone Sari Hay MD Primary Care Provider [phone] Reason for Visit * Reason Onset Date Comments Follow-up 09/04/2020 Encounter Details Date Type Department Care Team (Late st Contact Info) Description 09/04/2020 Telephone [place] [address] Rod Valdez MD [facility] [place] [address] Follow-up Social History Tobacco Use Types Packs/Day Years [...] encounter Miscellaneous Notes * Telephone Encounter - Abby Valente - 09/04/2020 4:36 PM EST Patient Scheduled * Telephone Encounter - Moraima Myers - 09/04/2020 1:13 PM EST LM#[id number] to return call to schedule next available appointment with Dr. Valdez to discuss Revision per request of Marissa Taylor. NXR, Left TKA REV 02/10/2019, surgical discussion documented in this encounter Plan of Treatment Not on file documented as of this encounter Visit Diagnoses Not on filedocumented in this encounter Care Teams Gyroscopic Instrument Mechanic Relationship Specialty Start Date End Date Sari Hay MD [facility] [address] [facility] [address] [place] [address] PCP - General 05/21/11 documented as of this encounter
--- OUTSIDE RECORDS SUMMARY | 2024-04-26 15:49 | XMS_ITS | Encounter Summary ---
Author Organization Formerly [facility] Address [facility] [place] [address] Care Team Providers Care Visual Merchandising Assistant Name Role Phone Sari Hay MD Primary Care Provider [phone] Reason for Visit * Reason Comments Follow-up L Distal Radius Fx: 09/05/2019, Left Knee Pain and stiffness, Possi ble infection? Encounter Details Date Type Department Care Team (Late st Contact Info) Description 11/29/2019 11:15 AM EST Office [place] [phone] Le, GANESH Proctor [facility] [place] [address] Status post left knee replacement; Acute pain of left knee Social History Tobacco Use Types Packs/Day [...] Sign Reading Time Taken Comments Blood Pressure 102/66 11/29/2019 11:12 AM EST Pulse 60 11/29/2019 11:12 AM EST Temperature - - Respiratory Rate - - Oxygen Saturation - - Inhaled Oxygen Concentration - - Weight 93.9 kg (207 lb) 11/29/2019 11:12 AM EST Height 177.8 cm (5' 10) 11/29/2019 11:12 AM EST Body Mass Index 29.7 11/29/2019 11:12 AM EST documented in this encounter Progress Notes * Le, GANESH Proctor - 11/29/2019 11:15 AM EST PATIENT NAME: Sissy Eugene AGE: 54 y.o. MR#: [id number] DATE OF VISIT: 11/29/2019 CHIEF COMPLAINT: left distal radius fracture, left knee pain HISTORY OF PRESENT ILLNESS: Ms. Eugene is a RHD 54 y.o. female who comes into clinic today for evaluation of the left wrist, left knee. Regarding the wrist, she was walking the dog 09/12/19 and slipped on ice. Had immediate left wrist pain. Was placed into splint by PCP initially, and transitioned to cast 09/14/19. She completed 6 weeks of casting. Since then she has been working on her own to regain ROM. She is unable to do OT due to her work schedule. Pain is minimal. ROM is progressing slowly. Regarding her knee she reports that she has noticed increasing pain over the past several months. She is approximately 9 months status post left knee I&D and poly-swap with Dr. Valdez. She reports that her knee feels similar to the way it did before this procedure. She endorses zings of pain medially. There is no particular pattern or inciting event. she also endorses some start up pain as well as fatigue at the end of the day. She denies significant swelling or effusion. She denies systemic symptoms including cough, cold, fever, chills. Past medical history: Patient Active Problem List [...] Last attempt to quit: 07/18/2003 Years since quittin.3 ??? Smokeless tobacco: Never Used Substance Use Topics ??? Alcohol use: Yes Comment: less than 1 per week Review of systems: No chest pain or shortness of breath No fevers, night sweats or chills Vital signs: Most Recent Vitals: 11/29/19 1112 BP: 102/66 Pulse: 60 Physical exam: Ms. Eugene is a 54 y.o. female who is alert and oriented. She is in no acute discomfort and is resting comfortably in the exam room. No use of accessory muscles or retraction. Normal respiratory rate. Left wrist, hand without swelling, ecchymosis, erythema, lesions Mild TTP left distal radius Active ROM of wrist in all planes. Extension and flexion limited by approximately 10 degrees compared to contralateral side. radial pulse 2+ Sensation intact to light touch throughout median, ulnar, radial nerve distribution. Knee Exam: Left Prior surgery on this joint: Yes Knee ROM: Extension:0 Flexion: 120 Alignment: 0-4 degrees Neutral Stability: A/P Translation 5-10mm Varus (lateral stability) 5-10mm Valgus (medial stability) <5mm Extension La degrees or less Radiographic evidence of joint damage: [0= normal; 1=minimal ; 2= some osteophytes , some narrowing ; 3= moderate osteophytes, significantnarrowing, mild deformity; 4= large osteophytes, marked narrowing, obvious deformity]: s/p TKA withintraarticular effusion, possible new lucency at the lateral tibial component Patella Tracking: Normal Skin Integrity: Normal Pulses Palpable: Left PT:Yes Left DP:Yes Motor/Sensory: Distal Motor:Normal Distal Sensory: Normal Quadriceps Strength:5 Knee Effusion: 1+ Ecchymosis: none Patella: Patellar apprehension test: negative Patellar compression test: negative Tenderness: medial tibial plateau and lateral tibial plateau Imaging studies: Xrays taken today demonstrate left distal radius fracture, nondisplaced, intraarticular. No change compared to previous films. Alignment is acceptable. Callous formation to suggest interval healing. Degenerative changes at radioulnar joint. xrays of the left knee reveal changes s/p left TKA. Intraarticular effusion present, most notable on lateral film. Possible new lucency noted, particularly at the lateral tibia Assessment and plan:: 54 y.o. year-old female s/p left distal radius fracture 09/12/19, recovering well. New knee pain 9 months s/p left I&D, poly swap. Regarding the left wrist we discussed that the fracture is healing well. She may continue to increase activity as tolerated. She should continue to work on range of motion. No further follow-up is needed unless she continues to have pain. Regarding the left knee we discussed that she does have significant effusion noted on x-ray. There does also appear to be some new lucency around her tibia. Inflammatory markers were benign. Given her history of infection, complaints that this feels similar we discussed the utility of an aspiration. She prefers to have aspiration performed today to rule out infection. Also recommend that she undergo bone scan to assess for loosening of her tibial component. PROCEDURE NOTE: left knee aspiration A time-out was performed and the left knee was confirmed to be the site of aspiration. The patient was confirmed to have no allergies to betadine, local anesthetics. The patient was counseled about the potential risks of the procedure, including infection, bleeding and inadequate sample The patient provided consent. The skin was prepped widely over the left knee. Then, using sterile technique, a solution consisting of 4cc 1% lidocaine (40 mg) was injected into the left knee. The needle was felt to slide into thecapsule and the mixture flowed freely. After allowing sufficient time for the anesthetic to take effect, a 20g spinal needle was used to aspirate approximately 20ccs of straw colored, clear synovial fluid. The skin was cleaned and a Band-Aid was applied. The patient tolerated the procedure well. Discussed that preliminary aspiration results should be available today. Full aspiration results will take 2 weeks. I will call her with these results. She will also schedule her bone scan at her convenience. We will discuss her case with Dr. Valdez who performed her most recent I&D poly-swap. Ruy briefly discuss the procedure for total knee replacement revision should her components be loose . She will return to clinic as indicated pending lab, bone scan results. Questions were solicited and answered. She agrees with this plan. GANESH Mccauley documented in this encounter Plan of Treatment Not on file documented as of this encounter Procedures Procedure Name Priority Date/Time Associated Diagnosis Comments ANAEROBIC CULTURE Routine 11/29/2019 12: 00 PM EST Status post left knee replacement Acute pain of left knee HC CONC. FOR INFECTIOUS AGENTS Routine 11/29/2019 12:00 PM EST Status post left knee replacement Acute pain of left knee HC BODY FLUID CRYSTALS Routine 11/29/2019 12:00 PM EST Status post left knee replacement Acute pain of left knee BODY FLUID CULTURE, AEROBIC Routine 11/29/2019 12:00 PM EST Status post left knee replacement Acute pain of left knee HC BODY FLUID CELL CT W/DIFF Routine 11/29/2019 12:00 PM EST Status post left knee replacement Acute pain of left knee documented in this encounter Results * Anaerobic Culture (11/29/2019 12:00 PM EST) Anaerobic Culture No anaerobic organisms isolated [facility] Knee joint synovial fluid (specimen) 11/29/2019 12:00 PM EST 11/29/2019 2:04 PM EST Comment:PLEASE HOLD CULTURE FOR 14 DAYS Narrative Resulting Agency Comment Spec In Lab Trice [facility] - GENER AL ORDERABLES [facility] [place] [address] * Body Fluid Culture, Aerobic (11/29/2019 12:00 PM EST) Body Fluid Culture No growth at [address] [facility] Gram Stain Cytocentrifuge Gram Stain performed No Neutrophils seen. No microorganisms seen. [facility] Knee joint synovial fluid (specimen) 11/29/2019 12:00 PM EST 11/29/2019 2:04 PM EST Comment:PLEASE HOLD CULTURE FOR 14 DAYS Narrative Resulting Agency Comment Spec In Lab Trice [facility] - GENER AL ORDERABLES [facility] [place] [address] * Crystal Exam Body Fluid (11/29/2019 12:00 PM EST) Crystal BF Type Knee fluid Lt [facility] Crystal BF None Seen [facility] Specimen from lower limb (specimen) 11/29/2019 12:00 PM EST 11/29/2019 1:52 PM EST Narrative Resulting Agency Comment Spec In Lab Karen Nixon MD BODY FLUIDS AND STO OLS ORDERABLES Performing Organization Address City/[facility]/ZIP Co de Phone Number [facility] [place] [address] * Cell Count Body Fluid (11/29/2019 12:00 PM EST) Spec Type BF Knee, Left [facility] Color BF [place] [facility] Appearance BF Slightly Cloudy [facility] WBC BF Ct 153 /mcl [facility] Comment: Guideline listed below apply to all body fluids. Differentials on BAL specimens are performed by the Cytology lab section. When Body Fluid WBC count is greater than Zero, a smear is made and scanned. All scan information is correlated with numeric results prior to being released to patients chart. Polymorph % 16 % [facility] Comment: Polymorphonuclear cell percent and absolute values may contain Neutrophils, Eosinophils, and Basophils. Body fluid smear will be scanned manually for concordance. Mononuc % 84 % [facility] Comment: Mononuclear cell percent and absolute values may contain Lymphocytes and Monocytes. Body fluid smear will be scanned manually for concordance. Polymorph BF ABS 25 /[facility] Comment: Polymorphonuclear cell percent and absolute values may contain Neutrophils, Eosinophils, and Basophils. Body fluid smear will be scanned manually for concordance. Mononuc ABS 128 /[facility] Comment: Mononuclear cell percent and absolute values may contain Lymphocytes and Monocytes. Body fluid smear will be scanned manually for concordance. Specimen from lower limb (specimen) 11/29/2019 12:00 PM EST 11/29/2019 1:52 PM EST Narrative Resulting Agency Comment Spec In Lab Karen Nixon MD BODY FLUIDS AND STO OLS ORDERABLES [facility] [place] [address] documented in this encounter Visit Diagnoses Diagnosis Status post left knee replacement Acute pain of left knee documented in this encounter Administered Medications Inactive Administered Medications - up to 3 most recent administrations Medication Order MAR Action Action Date Dose Rate Site lidocaine (XYLOCAINE) 10 mg/mL (1 %) injection 40 mg 40 mg, Subcutaneous, ONCE, 1 dose, On Thu12/02/19 at 1245, Routine Given 12/02/2019 12:22 PM EST 40 mg documented in this encounter Care Teams Visual Merchandising Assistant Relationship Specialty Start Date End Date Sari Hay MD [facility] [address] [place] [address] PCP - General 05/21/11 documented as of this encounter
--- OUTSIDE RECORDS SUMMARY | 2024-04-26 15:49 | XMS_ITS | Encounter Summary ---
Author Organization [facility] [place] [address] Care Team Providers Care Irish Moss Operator Name Role Phone Sari Hay MD Primary Care Provider [phone] Encounter Details Date Type Department Care Team (Late st Contact Info) Description 04/10/2020 Telephone [place] [phone] Prisca Mdcaniel, RN Social History Tobacco Use Types Packs/Day [...] encounter Miscellaneous Notes * Telephone Encounter - Daniella Childers - 04/11/2020 8:26 AM EDT Call back to [facility] this morning after speaking with Dr. Hdz about her left foot x-rays. She is having pain on her left toe, as it is starting to curl under her second toe. I let her know we will giveher some inserts and further discuss this with Dr. Hdz when she comes in next week. No other questions or concerns at this time. * Telephone Encounter - Prisca Mcdaniel RN - 04/10/2020 2:47 PM EDT Patient calls in requesting a call back from Daniella, she states that she was in for her sons preopand mentioned her left concerns. She states Daniella ordered xrays and advised that she would be in touch once xrays were completed but she has not heard anything. She declined offer to schedule with a provider to evaluate her concerns and requests Daniella call her at her convienience documented in this encounter Plan of Treatment Not on file documented as of this encounter Visit Diagnoses Not on filedocumented in this encounter Care Teams Irish Moss Operator Relationship Specialty Start Date End Date Sari Hay MD [facility] [address] [place] [address] PCP - General 05/21/11 documented as of this encounter
--- OUTSIDE RECORDS SUMMARY | 2024-04-26 15:49 | XMS_ITS | Encounter Summary ---
Author Organization [facility] Address [facility] [place] [address] Care Team Providers Care Content Writer Name Role Phone Sari Hay MD Primary Care Provider [phone] Encounter Details Date Type Department Care Team (Latest Contact Info) Description 04/04/2020 11:36 AM EDT - 04/04/2020 11:59 PM EDT Hospital Encounter XRay at [address] [place] [address] Spenser Hdz MD [facility] [place] [address] Hammer toe of left foot Discharge Disposition: Home Social History Tobacco Use [...] Name Priority Date/Time Associated Diagnosis Comments XR FOOT MIN 3 VIEWS LEFT Routine 04/04/2020 11:57 AM EDT Hammer toe of left foot documented in this encounter Results * XR Foot Min 3 views Left (Generic) (04/04/2020 11:57 AM EDT) Anatomical Region Laterality Modality Foot Left Digital Radiogra phy Impressions 04/04/2020 12:54 PM EDT 1. 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 2. ??Ulnar deviation at 2 MTP joint and 2-3 cross toe deformity are similar to last examination. Healed 2 proximal phalangeal fracture. Thank you for letting us participate in the care of this patient. For questions regarding this report, please contact the number below. ? Narrative 04/04/2020 12:54 PM EDT EXAMINATION: XR FOOT MIN 3 VIEWS LEFT (GENERIC) CLINICAL HISTORY: left 2nd/3rd toe pain, weight bearing films please, entered by ordering service TECHNIQUE: Left foot 3 views COMPARISON: Radiographs, January 2016. FINDINGS: Bones * ??2 proximal phalanx-the fracture has healed. * ??There is second and third cross toe deformity, related to ulnar deviation at left MTP joint. Joints * ??2 PIP joint-a solid fusion, unchanged. * ??2 MTP joint-progression of osteoarthropathy with enlarging osteophyte and subchondral cysts. The there is ulna deviation of the proximal phalanx. * ??1 MTP joint-and minimal eccentric joint space narrowing and osteophyte formation. * ??Lisfranc joint-normal alignment. Procedure Note Annette Pereira MD - 04/04/2020 EXAMINATION: XR FOOT MIN 3 VIEWS LEFT (GENERIC) CLINICAL HISTORY: left 2nd/3rd toe pain, weight bearing films please,entered by ordering service TECHNIQUE: Left foot 3 views COMPARISON: Radiographs, January 2016. FINDINGS: Bones * 2 proximal phalanx-the fracture has healed. * There is second and third cross toe deformity, related to ulnardeviation at left MTP joint. Joints * 2 PIP joint-a solid fusion, unchanged. * 2 MTP joint-progression of osteoarthropathy with enlarging osteophyteand subchondral cysts. The there is ulna deviation of the proximal phalanx. * 1 MTP joint-and minimal eccentric joint space narrowing andosteophyte formation. * Lisfranc joint-normal alignment. IMPRESSION 1. 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 2. Ulnar deviation at 2 MTP joint and 2-3 cross toe deformity are similarto last examination. Healed 2 proximal phalangeal fracture. Thank you for letting us participate in the care of this patient. Forquestions regarding this report, please contact the number below. Spenser Hdz MD IMG DX ORDERABLES documented in this encounter Visit Diagnoses Diagnosis Hammer toe of left foot documented in this encounter Care Teams Content Writer Relationship Specialty Start Date End Date Sari Hay MD [address] [place] [address] PCP - General 05/21/11 documented as of this encounter
--- OUTSIDE RECORDS SUMMARY | 2024-04-26 15:49 | XMS_ITS | Encounter Summary ---
Author Organization [facility] Address [facility] [place] [address] Care Team Providers Care Trace Clerk Name Role Phone Sari Hay MD Primary Care Provider Reason for Visit * Reason Onset Date Comments Bumped Appointment 09/21/2019 Encounter Details Date Type Department Care Team (Late st Contact Info) Description 09/21/2019 Telephone [place] [phone] Gege Harrell PA [facility] [place] [address] Bumped Appointment Social History Tobacco Use Types Packs/Day Years [...] encounter Miscellaneous Notes * Telephone Encounter - Yamile White - 09/23/2019 11:02 AM EST No response from patient, letter sent * Telephone Encounter - Yamile White - 09/22/2019 12:05 PM EST LM #2 to call to reschedule bumped 10/12 appointment * Telephone Encounter - Yamile White - 09/21/2019 2:26 PM EST LM #1 to call to reschedule bumped 10/12 appointment with Gege Harrell--reschedule to held time on Thursday, 10/10. documented in this encounter Plan of Treatment Not on file documented as of this encounter Visit Diagnoses Not on filedocumented in this encounter Care Teams Trace Clerk Relationship Specialty Start Date End Date Sari Hay MD [address] [place] [address] PCP - General 05/21/11 documented as of this encounter
--- OUTSIDE RECORDS SUMMARY | 2024-04-26 15:49 | XMS_ITS | Encounter Summary ---
Author Organization [facility] Address [facility] [place] [address] Care Team Providers Care Bingo Caller Name Role Phone Sari Hay MD Primary Care Provider [phone] Encounter Details Date Type Department Care Team (Latest Contact Info) Description 01/04/2021 3:30 PM EDT TH Visit (TeleHealth) [place] [address] Teressa Taylor PA [facility] [place] [address] Acute pain of left knee Social History [...] Progress Notes * Teressa Taylor PA - 01/04/2021 3:30 PM EDT Today nAa Rosa had a phone visit today, however the only phone number listed [phone] told me thatthis phone number was not accepting phone calls at this time Teressa Taylor PA-C Call returned by Ana Rosa. Risk of infection ROM improvement When to schedule Knee replacement documented in this encounter Plan of Treatment Not on file documented as of this encounter Visit Diagnoses Diagnosis Acute pain of left knee documented in this encounter Care Teams Bingo Caller Relationship Specialty Start Date End Date Sari Hay MD [facility] [address] [facility] [address] [place] [address] PCP - General 05/21/11 documented as of this encounter
--- OUTSIDE RECORDS SUMMARY | 2024-04-26 15:49 | XMS_ITS | Encounter Summary ---
Author Organization [facility] Address [facility] [place] [address] Care Team Providers Care Piston Maker Name Role Phone Sari Hay MD Primary Care Provider [phone] Encounter Details Date Type Department Care Team (Late st Contact Info) Description 09/05/2020 Orders [place] [address] Rod Valdez MD [facility] [place] [address] Status post left knee replacement (Primary Dx) Social History Tobacco Use Types [...] XR Knee Standing Alignment AP Lat [place] Left (09/12/2020 4:06 PM EST) Anatomical Region [...] the number below. ? Electronically signed by: DEZ TAPIA DO, [facility] ([phone]), at 09/12/2020 4:18 PM Narrative 09/12/2020 4:18 PM EST EXAMINATION: XR [...] contact the number below. Electronically signed by: DEZ TAPIA DO [facility]([phone]), at 09/12/2020 4:18 PM Rod Valdez MD IMG DX ORDERABLES documented in this encounter Visit Diagnoses Diagnosis Status post left knee replacement- Primary Status post left knee replacement documented in this encounter Care Teams Piston Maker Relationship Specialty Start Date End Date Sari Hay MD [address] [place] [address] PCP - General 05/21/11 documented as of this encounter
--- OUTSIDE RECORDS SUMMARY | 2024-04-26 15:49 | XMS_ITS | Encounter Summary ---
Author Organization [facility] Address [facility] [place] [address] Care Team Providers Care Knitter Machine Name Role Phone Sari Hay MD Primary Care Provider [phone] Encounter Details Date Type Department Care Team (Late st Contact Info) Description 04/03/2020 Orders Only [place] [address] Spenser Hdz MD [facility] [address] [place] [address] Hammer toe of left foot Social History Tobacco Use Types Packs/Day Years [...] as of this encounter Results * XR Foot Min [...] Diagnoses Diagnosis Hammer toe of left foot Hammer toe of left foot documented in this encounter Care Teams Knitter Machine Relationship Specialty Start Date End Date Sari Hay MD [address] [place] [address] PCP - General 05/21/11 documented as of this encounter
--- OUTSIDE RECORDS SUMMARY | 2024-04-26 15:49 | XMS_ITS | Encounter Summary ---
Author Organization [facility] Address [facility] [place] [address] Care Team Providers Care Irrigation Worker Name Role Phone Sari Hay MD Primary Care Provider Reason for Visit * Reason Comments Left Arm Fracture left distal radial F X DOI 09/05/19 * Consultation (Routine) - Specialty Diagnoses / Procedures Referred By Emmanuel cisneros Referred To Contact Orthopaedics Diagnoses Pain in wrist, unspecified laterality LEFT WRIST PAIN-? NON DISPLACED FX Sari Hay MD [address] [place] [address] [facility] [address] [place] [address] [facility] [address] [place] [phone] Referral ID Status Reason Start Date Expiration Date V isits Requested Visits Authorized [id number] Consult, Test & Treat 09/05/2019 12/05/2019 6 6 Encounter Details Date Type Department Care Team (Late st Contact Info) Description 09/14/2019 1:30 PM EST Office [place] [address] Gege Harrell PA [facility] [place] [address] Closed Colles' fracture of left radius, initial encounter (Primary Dx) Social History Tobacco Use [...] Sign Reading Time Taken Comments Blood Pressure 128/82 09/14/2019 11:33 AM EST Pulse 53 09/14/2019 11:33 AM EST Temperature - - Respiratory Rate - - Oxygen Saturation - - Inhaled Oxygen Concentration - - Weight - - Height - - Body Mass Index - - documented in this encounter Progress Notes * Gege Harrell PA - 09/14/2019 1:30 PM EST PATIENT NAME: Sissy Eugene AGE: 53 y.o. MR#: [id number] DATE OF VISIT: 09/14/2019 CHIEF COMPLAINT: left distal radius fracture HISTORY OF PRESENT ILLNESS: Ms. Eugene is a 53 y.o. female who comes into clinic today for evaluation of the left wrist. Walking the dog on Thursday and slipped on the ice. Saw PCP and had xrays. PCP gave her wrist splint. Pain is not bad and manageble with tylenol and ibuprofen. Pain is rated at 2/10. Sleeping okay. She is right hand dominant. 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 Does not smoke anymore. Past medical history: Patient Active Problem List [...] Last attempt to quit: 07/18/2003 Years since quittin.1 ??? Smokeless tobacco: Never Used Substance Use Topics ??? Alcohol use: Yes Comment: Rare Review of systems: No chest pain or shortness of breath No fevers, night sweats or chills Vital signs: Most Recent Vitals: 09/14/19 1133 BP: 128/82 Pulse: 53 Physical exam: Ms. Eugene is a 53 y.o. female who is alert and oriented. She is in no acute discomfort and is resting comfortably in the exam room. No use of accessory muscles or retraction. Normal respiratory rate. TTP distal radius No TTP ulna Resolving ecchymoses distal ulna SILT LUE Left radial pulse 2+ Able to gently wiggle fingers without full ROM tested today Imaging studies: Left distal radius fracture, nondisplaced and intraarticular. Acceptable alignment. Degenerative changes at radius ulnar joint. Assessment and plan:: 53 y.o. year-old female left distal radius fracture. We had a long discussion regarding distal radius fracture. She expresses her very strong preferenceto treat with a splint. I recommended against this and recommended we use a cast. Treat nonop basedon alignment and nondisplaced. Treat with short arm fiberglass cast, left. Will try to get her out of a cast a little early and transition to a splint. Tylenol for pain, NSAID if tylenol is not effective. We reviewed the imaging together which is described above. This plan was discussed with the patient and they are in agreement. All of the patient's questions were answered. The patient understand to contact us if they have any other questions or concerns. FU: 2 weeks w/ arsenio Harrell PA-C The above dictation was made with voice recogonition software documented in this encounter Plan of Treatment Not on file documented as of this encounter Results * XR Wrist 3 Views Left (09/30/2019 3:03 PM EST) Anatomical Region Laterality Modality Left Digital Radiogra phy Impressions 09/30/2019 4:15 PM EST Fracture lines are more evident than on the prior exam. Slightly increased sclerosis but no significant osseous bony bridging appreciated. Alignment is maintained. Thank you for letting us participate in the care of this patient. For questions regarding this report, please contact the number below. ? Electronically signed by: Pilar Goss MD, [facility] ([phone]), at 09/30/2019 4:15 PM Narrative 09/30/2019 4:15 PM EST EXAMINATION: XR WRIST 3 VIEWS LEFT CLINICAL HISTORY: assess fracture alignment, has it shifted? fracture healing TECHNIQUE: 3 views LEFT wrist COMPARISON: 09/14/2019 FINDINGS: There remains fracture lucency seen through the oblique LEFT distal radial intra-articular fracture. Position alignment of the fracture appears unchanged. There is slightly increased sclerosis appreciated. No change in position and alignment. Degenerative changes are noted at the distal radial ulnar joint. Procedure Note Pilar Goss MD - 09/30/2019 EXAMINATION: XR WRIST 3 VIEWS LEFT CLINICAL HISTORY: assess fracture alignment, has it shifted? fracturehealing TECHNIQUE: 3 views LEFT wrist COMPARISON: 09/14/2019 FINDINGS: There remains fracture lucency seen through the oblique LEFT distalradial intra-articular fracture. Position alignment of the fracture appearsunchanged. There is slightly increased sclerosis appreciated. No change in positionand alignment. Degenerative changes are noted at the distal radial ulnarjoint. IMPRESSION Fracture lines are more evident than on the prior exam. Slightlyincreased sclerosis but no significant osseous bony bridging appreciated. Alignmentis maintained. Thank you for letting us participate in the care of this patient. Forquestions regarding this report, please contact the number below. Ammy Latham MD IMG DX ORDERABLES documented in this encounter Visit Diagnoses Diagnosis Closed Colles' fracture of left radius, initial encounter- Primary Closed Colles' fracture of left radius, initial encounter documented in this encounter Care Teams Irrigation Worker Relationship Specialty Start Date End Date Sari Hay MD [address] [place] [address] PCP - General 05/21/11 documented as of this encounter
--- OUTSIDE RECORDS SUMMARY | 2024-04-26 15:49 | XMS_ITS | Encounter Summary ---
[place] [address] Care Team Providers Care Artificial Fly Tier Name Role Phone Sari Hay MD Primary Care Provider [phone] Reason for Visit * Reason Onset Date Comments Medication Refill 06/03/2019 Encounter Details Date Type Department Care Team (Late st Contact Info) Description 06/03/2019 Refill [place] [address] Juan A Dalal, RN group home current use of antibiotics Social History Tobacco Use Types Packs/Day Years [...] as of this encounter Visit Diagnoses Diagnosis medication nurse current use of antibiotics Encounter for long-term (current) use of antibiotics documented in this encounter Care Teams Artificial Fly Tier Relationship Specialty Start Date End Date Sari Hay MD [address] [place] [address] PCP - General 05/21/11 documented as of this encounter
--- OUTSIDE RECORDS SUMMARY | 2024-04-26 15:49 | XMS_ITS | Encounter Summary ---
Author Organization [facility] [place] [address] Care Team Providers Care Executive Pastry Chef Name Role Phone Sari Hay MD Primary Care Provider [phone] Encounter Details Date Type Department Care Team (Late st Contact Info) Description 05/20/2019 Telephone [place] [phone] Juan A Dalal RN Social History Tobacco [...] Encounter - Juan A Dalal RN - 05/20/2019 4:38 PM EDT Ms. Eugene calling today in regards to medications left at home while on travel in [place]. Spoke with patient and she has made a plan to have local [facility] call her pharmacy [facility] for a short supply of Rifampin and Cipro. documented in this encounter Plan of Treatment Not on file documented as of this encounter Visit Diagnoses Not on filedocumented in this encounter Care Teams Executive Pastry Chef Relationship Specialty Start Date End Date Sari Hay MD [address] [place] [address] PCP - General 05/21/11 documented as of this encounter
--- OUTSIDE RECORDS SUMMARY | 2024-04-26 15:49 | XMS_ITS | Encounter Summary ---
Author Organization [facility] [place] [address] Care Team Providers Care Courseware Developer Name Role Phone Sari Hay MD Primary Care Provider [phone] Reason for Visit * Reason Onset Date Comments Questions 12/31/2020 Encounter Details Date Type Department Care Team (Late st Contact Info) Description 12/31/2020 Telephone [place] [address] Michael Rios Questions Social History Tobacco Use [...] encounter Miscellaneous Notes * Telephone Encounter - Michael Rios - 12/31/2020 3:06 PM EDT Triage Note Subjective: pt calls to schedule LT TKARevision but would also like to speak with Marissa Taylor if possible for reassurance/confrimation/to ask clinical questions Trent questions/Assessment: pt states she knows she need sand will go through with the surgery, however she still has questions. Attempted to get info to relay a msg but pt declined saying she preferred to have a clinical discussion Plan: fwd'd to scheduling for resolution Patient/Responsible libertarian voices an understanding of advice? yes Patient/Responsible libertarian intends to comply with action/disposition: yes documented in this encounter Plan of Treatment Not on file documented as of this encounter Visit Diagnoses Not on filedocumented in this encounter Care Teams Courseware Developer Relationship Specialty Start Date End Date Sari Hay MD [facility] [address] [facility] [address] [place] [address] PCP - General 05/21/11 documented as of this encounter
--- OUTSIDE RECORDS SUMMARY | 2024-04-26 15:49 | XMS_ITS | Encounter Summary ---
Author Organization Counts [facility] Address [facility] [place] [address] Care Team Providers Care Corporate Development Associate Name Role Phone Sari Hay MD Primary Care Provider [phone] Reason for Referral * Diagnostic Test (Routine) - Closed Specialty Diagnoses / Procedures Referred By Contac t Referred To Contact Radiology Diagnoses Status post left knee replacement Procedures NM Bone Scan [address] [address] [place] [address] Referral ID Status Reason Start Date Expiration Date V isits Requested Visits Authorized [id number] Closed Specialty Service Requested 07/11/2020 01/09/2022 1 1 Reason for Visit * Diagnostic Test (Routine) - Closed Specialty Diagnoses / Procedures Referred By Contac t Referred To Contact Radiology Diagnoses Status post left knee replacement Procedures NM Bone Scan [address] [address] [place] [address] Referral ID Status Reason Start Date Expiration Date V isits Requested Visits Authorized [id number] Closed Specialty Service Requested 07/11/2020 01/09/2022 1 1 Encounter Details Date Type Department Care Team (Late st Contact Info) Description 08/29/2020 11:51 AM EST - 08/29/2020 2:49 PM EST Hospital Encounter [place] [address] Rod Valdez MD [facility] [address] [place] [address] Status post left knee replacement Discharge Disposition: [...] please contact the number below. ? Narrative 08/29/2020 4:10 PM EST EXAMINATION: NM [...] the number below. Rod Valdez MD IMG NM ORDERABLES documented in this encounter Visit Diagnoses Diagnosis Status post left knee replacement documented in this encounter Administered Medications Inactive Administered Medications - up to 3 most recent administrations Medication Order MAR Action Action Date Dose Rate Site technetium (Tc-99m) methylene diphosphonate (MDP) injection 0-30 mCi 0-30 mCi, Intravenous, ONCE PRN, 1 dose, Starting on Thu08/29/20 at 1241, Until Thu08/29/20 at 1220, Per Protocol, Radiology Contrast, Routine Given 08/29/2020 12:20 PM EST 24.7 mCi documented in this encounter Care Teams Corporate Development Associate Relationship Specialty Start Date End Date Sari Hay MD [address] [place] [address] PCP - General 05/21/11 documented as of this encounter
--- OUTSIDE RECORDS SUMMARY | 2024-04-26 15:49 | XMS_ITS | Encounter Summary ---
Author Organization [facility] Address [facility] [place] [address] Care Team Providers Care Operator/Assistant Foreman Name Role Phone Sari Hay MD Primary Care Provider [phone] Encounter Details Date Type Department Care Team (Late st Contact Info) Description 10/25/2019 Orders [place] [address] Mitchell Early MD [facility] [place] [address] Closed Colles' fracture of left radius with [...] Results * XR Wrist 3 Views Left (10/28/2019 10:26 AM EST) Anatomical Region Laterality Modality Left Digital Radiogra phy Impressions 10/28/2019 10:48 AM EST Significant increased healing of the distal radial fracture. Thank you for letting us participate in the care of this patient. For questions regarding this report, please contact the number below. ? Electronically signed by: PEDRO Jimenez [facility] ([phone]), at 10/28/2019 10:48 AM Narrative 10/28/2019 10:48 AM EST EXAMINATION: XR WRIST 3 VIEWS LEFT CLINICAL HISTORY: s/p L distal radius fx DOI 09.05.19 TECHNIQUE: 3 views LEFT wrist, 10/28/2019 COMPARISON: Left wrist x-rays 09/30/2019 FINDINGS: Further increased sclerosis along the distal radial fracture line with minimal fracture line lucency only subtly seen. Alignment remains anatomic. Stable degenerative changes at the distal radioulnar joint. No soft tissue swelling or radiopaque foreign body. Procedure Note Delmy Cintron MD - 10/28/2019 EXAMINATION: XR WRIST 3 VIEWS LEFT CLINICAL HISTORY: s/p L distal radius fx DOI 09.05.19 TECHNIQUE: 3 views LEFT wrist, 10/28/2019 COMPARISON: Left wrist x-rays 09/30/2019 FINDINGS: Further increased sclerosis along the distal radial fracture line withminimal fracture line lucency only subtly seen. Alignment remains anatomic.Stable degenerative changes at the distal radioulnar joint. No soft tissueswelling or radiopaque foreign body. IMPRESSION Significant increased healing of the distal radial fracture. Thank you for letting us participate in the care of this patient. Forquestions regarding this report, please contact the number below. Electronically signed by: PEDRO Jimenez [facility] ([phone]),at 10/28/2019 10:48 AM Mitchell Early MD IMG DX ORDERABLES documented in this encounter Visit Diagnoses Diagnosis Closed Colles' fracture of left radius with routine healing, subsequent encounter Closed Colles' fracture of left radius with routine healing, subsequent encounter documented in this encounter Care Teams Operator/Assistant Foreman Relationship Specialty Start Date End Date Sari Hay MD [address] [place] [address] PCP - General 05/21/11 documented as of this encounter
--- OUTSIDE RECORDS SUMMARY | 2024-04-26 15:49 | XMS_ITS | Encounter Summary ---
Author Organization [facility] [place] [address] Care Team Providers Care Administrative Secretary Name Role Phone Sari Hay MD Primary Care Provider [phone] Reason for Visit * Reason Comments Follow Up Fracture Closed Colles' fract ure of left radius with routine healing Encounter Details Date Type Department Care Team (Late st Contact Info) Description 10/28/2019 10:00 AM EST Office [place] [address] Closed Colles' fracture of left radius with [...] as of this encounter Progress Notes * Kenneth Paulson - 10/28/2019 10:00 AM EST Sissy Eugene presents to the clinic for a cast off per Donna Hu. The cast was intact upon arrival. The patient was explained how the cast saw works and the cast was removed. The patient tolerated this procedure well. The patient's skin was intact.The patient was then sent to x-ray. documented in this encounter Plan of Treatment Not on file documented as of this encounter Visit Diagnoses Diagnosis Closed Colles' fracture of left radius with routine healing, subsequent encounter documented in this encounter Care Teams Administrative Secretary Relationship Specialty Start Date End Date Sari Hay MD [address] [place] [address] PCP - General 05/21/11 documented as of this encounter
--- OUTSIDE RECORDS SUMMARY | 2024-04-26 15:49 | XMS_ITS | Encounter Summary ---
Author [facility] [place] [address] Care Team Providers Care Computer Applications Engineer Name Role Phone Sari Hay MD Primary Care Provider [phone] Encounter Details Date Type Department Care Team (Late st Contact Info) Description 07/01/2019 Telephone [place] [phone] Juan A Dalal RN Social History Tobacco [...] - Juan A Dalal RN - 07/01/2019 5:36 PM EDT RN spoke with provider, Dr. Lerner, he would like to see patient in clinic for a follow up visit: ThursdayJuly 04 @ 16:30. Patient aware and will come in. documented in this encounter Plan of Treatment Not on file documented as of this encounter Visit Diagnoses Not on filedocumented in this encounter Care Teams Computer Applications Engineer Relationship Specialty Start Date End Date Sari Hay MD [address] [place] [address] PCP - General 05/21/11 documented as of this encounter
--- OUTSIDE RECORDS SUMMARY | 2024-04-26 15:49 | XMS_ITS | Encounter Summary ---
[facility] Organization [facility] Address [facility] [place] [address] Care Team Providers Care Pediatric Cns Name Role Phone Sari Hay MD Primary Care Provider [phone] Reason for Visit * Reason Comments Follow-up XR, Left TKA REV 02/10, surgical discussion - per aracelis H Encounter Details Date Type Department Care Team (Late st Contact Info) Description 09/12/2020 4:00 PM EST Office [place] [address] Rod Valdez MD [facility] [place] [address] Infection associated with internal right knee prosthesis, [...] Sign Reading Time Taken Comments Blood Pressure 121/89 09/12/2020 4:07 PM EST Pulse 57 09/12/2020 4:07 PM EST Temperature - - Respiratory Rate - - Oxygen Saturation - - Inhaled Oxygen Concentration - - Weight 97.5 kg (215 lb) 09/12/2020 4:07 PM EST Height 177.8 cm (5' 10) 09/12/2020 4:07 PM EST Body Mass Index 30.85 09/12/2020 4:07 PM EST documented in this encounter Progress Notes * Irving Case MD - 09/12/2020 4:00 PM EST Arthroplasty/Orthopaedic History: 1. Left TKA 09/29/17 outside facility. 2. Left TKA polyswap 02/10/19 ([facility]) HPI: Sissy Eugene is a very pleasant 54 y.o. year-old female. She presents today for follow-up.In brief, she is a very pleasant 54-year-old female who had a left total knee arthroplasty performed in September 2017 at the [facility]. She reports that she had a subsequent arthroscpic surgery on the knee to remove scar tissue. 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 Valdez February 20, 2019. Cultures from that time grew staph. She was subsequently treated on a full antibiotic course (ceftriaxone).She then went on to have negative to aspiration and was believed to have clear her infection. However, she began having discomfort again in the knee around November 2019. She was seen and evaluated in this clinic with there was some concern for component loosening. A bone scan was ordered. She ended up having some delay prior to getting to this due to other things going on in her life and issues surrounding the COVID 19 epidemnic. She ultimately did end up getting this in August. The bone scan was concerning for loosening of both the femoral and tibial components. She was seen in this clinic most recently approximately 2 weeks ago at which point her bone scan was discussed with her. Inflammatory markers were obtained at that time which were reassuring with a CRP of 2.6 and an ESR of 17 as well as a white blood cell count of 7. On presentation today she reports continued discomfort in her left knee, as well as intermittent swelling. She does describe start up pain. The discomfort is relatively diffuse in nature and exacerbated by activity. She denies any other recent or acute changes in her health. ROS: Denies: fever, chills, night sweats, nausea, or vomiting BP 121/89 (BP Location (NBP): Right arm, Patient Position: Sitting, BP Cuff Sizes: Large Adult (32-43 cm)) Pulse 57 Ht 177.8 cm (5' 10) Wt 97.5 kg (215 lb) BMI 30.85 kg/m?? Physical Exam: Well-appearing female in no acute distress. Alert and Oriented x 3 and answers all questions appropriately. The incision is well healed, with no overt signs of infection. Moderate diffuse edema is noted around the knee Knee Exam: Left Knee ROM: Extension:5 Flexion: 105 Alignment: 0-4 degrees Neutral Stability: A/P Translation <5mm Varus <5mm Valgus 5-10mm Extension La degrees or less Patella Tracking: Normal Pulses Palpable: Left PT:Yes Left DP:Yes Motor/Sensory: Distal Motor: Normal Distal Sensory: Normal Quadriceps Strength: 5 X-RAYS: X-rays left knee 09/12/2020: X-rays of the left knee demonstrate total knee arthroplasty components in place. There does appear to be some lucency around the periphery of the tibial baseplate component. No overt lucencies are appreciated around the femoral component. No other acute injury or indication of component complication is appreciated. Questionnaire Responses: [facility] Surgical Postop Visit 09/12/2020 PROMIS-10 General Health Very Good PROMIS-10 Quality of Life Very Good PROMIS-10 Physical Health Good PROMIS-10 Mental Health Very Good PROMIS-10 Social Activity Good PROMIS-10 Everyday Activities Moderately PROMIS-10 Pain 6 PROMIS-10 Fatigue Moderate PROMIS-10 Social Roles Good PROMIS-10 Anxious or Depressed Rarely PROMIS PHYSICAL HEALTH SCORE 39.8 PROMIS MENTAL HEALTH SCORE 50.8 KOOS JR Scores - Problems with surgical incision/wound after surgery - Gone to ER since knee surgery - Where was ER located? - Date of ER visit - Reason for ER visit - Admitted to hospital since recent ortho surgery - Additional surgery on same body part - Hospital - Surgeon - Date of surgery - Reason for surgery - TKA Grade - Pain in other KNEE - Back pain at this moment - Satisfaction with Treatment Somewhat dissatisfied Choose Same Treatment Again - Employment status before injury - Returned to previous employment - Working at same capacity as before injury - Spending time in inpatient rehab facility - Rate overall condition today - Orthopeadics [facility] Response 09/02/2020 KOOS JR Scores 47.49 Spine [facility] Response 09/02/2020 KOOS JR Scores 47.49 ASSESSMENT/PLAN: Ms. Eugene is a 54 y.o. year old female with painful left total knee arthroplasty,with history of PJI that was treated with polyethylene exchange and antibiotics. At this point she has ongoing discomfort, laxity on knee exam, and imaging (xray and bone scan) are concerning for loosening of the tibial component, and possibly the femoral component. Her labs at this point are not indicative of infection and are quite re-assuring. We do not feel re- aspiration at this point is necessary but would plan to re-aspirate around the time of surgery (approx 2 weeks before surgery) if/when she decides to proceed with surgical intervention. We did discuss that revision surgery would be r ecommended to address loosening. If she was to have more infection present, then the surgical plan that we would recommend would be a two-stage revision with initial explant of an antibiotic spacer, followed by subsequent reimplantation. Full antibiotic course managed by infectious disease. If she did not have infection, revision wound with likely be performed in a single stage with removal of her open components and transition to revision components. This was discussed with the patient at length, including the risk and benefits of these procedures including the expected recovery. She expressed interest in pursuing surgery. We will have our schedulers contact her about scheduling surgery. All questions were answered. Signed: Irving Case MD 09/12/2020 documented in this encounter Plan of Treatment Not on file documented as of this encounter Visit Diagnoses Diagnosis Infection associated with internal right knee prosthesis, subsequent encounter documented in this encounter Care Teams Pediatric Cns Relationship Specialty Start Date End Date Sari Hay MD [address] [place] [address] PCP - General 05/21/11 documented as of this encounter
--- OUTSIDE RECORDS SUMMARY | 2024-04-26 15:49 | XMS_ITS | Encounter Summary ---
Author Organization [facility] Address [facility] [place] [address] Care Team Providers Care Head Of Talent Management Name Role Phone Sari Hay MD Primary Care Provider [phone] Encounter Details Date Type Department Care Team (Latest Contact Info) Description 10/28/2019 10:21 AM EST - 10/28/2019 11:59 PM [facility] Hospital Encounter XRay at [address] [place] [address] Closed Colles' fracture of left radius with routine healing, subsequent encounter Discharge Disposition: Home Social History Tobacco [...] Name Priority Date/Time Associated Diagnosis Comments XR WRIST 3 VIEWS LEFT Routine 10/28/2019 10:26 AM EST Closed Colles' fracture of left radius with routine healing, subsequent encounter documented in this encounter Results * XR Wrist 3 Views Left (10/28/2019 10:26 AM EST) Anatomical Region Laterality Modality Left Digital Radiogra phy Impressions 10/28/2019 10:48 AM EST Significant increased healing of the distal radial fracture. Thank you for letting us participate in the care of this patient. For questions regarding this report, please contact the number below. ? Narrative 10/28/2019 10:48 AM EST EXAMINATION: XR [...] number below. Electronically signed by: PEDRO [facility] ([phone]),at 10/28/2019 10:48 AM Mitchell Early MD IMG DX ORDERABLES documented in this encounter Visit Diagnoses Diagnosis Closed Colles' fracture of left radius with routine healing, subsequent encounter documented in this encounter Care Teams Head Of Talent Management Relationship Specialty Start Date End Date Sari Hay MD [address] [place] [address] PCP - General 05/21/11 documented as of this encounter
--- OUTSIDE RECORDS SUMMARY | 2024-04-26 15:49 | XMS_ITS | Encounter Summary ---
Author [facility] [place] [address] Care Team Providers Care Teacher Of The Hearing Impaired Name Role Phone Sari Hay MD Primary Care Provider [phone] Reason for Visit * Reason Comments Follow Up Fracture Closed Colles' fract ure of left radius with routine healing Encounter Details Date Type Department Care Team (Late st Contact Info) Description 10/14/2019 3:30 PM EST Office [place] [address] Closed Colles' fracture of left radius with [...] as of this encounter Progress Notes * Micki Paulson - 10/14/2019 3:30 PM EST Sissy Eugene presents to the clinic today for a cast change per Gege Harrell PA-C . The patients cast was removed. The patients skin was intact. A new well padded fiberglass short arm cast wasapplied on the left side. The patient tolerated the procedure well. Sissy was given instructionfor cast care and was given instruction to call the clinic with any questions or concerns. documented in this encounter Plan of Treatment Not on file documented as of this encounter Visit Diagnoses Diagnosis Closed Colles' fracture of left radius with routine healing, subsequent encounter documented in this encounter Care Teams Teacher Of The Hearing Impaired Relationship Specialty Start Date End Date Sari Hay MD [address] [place] [address] PCP - General 05/21/11 documented as of this encounter
--- OUTSIDE RECORDS SUMMARY | 2024-04-26 15:49 | XMS_ITS | Encounter Summary ---
Author Organization [facility] [place] [address] Care Team Providers Care Braided Band Assembler Name Role Phone Sari Hay MD Primary Care Provider [phone] Reason for Visit * Reason Comments Follow-up Closed Colles' fract ure of left radius with routine healing, subsequent encounter Encounter Details Date Type Department Care Team (Late st Contact Info) Description 09/30/2019 3:00 PM EST Office [place] [address] Closed Colles' fracture of left radius with [...] as of this encounter Progress Notes * Teetee Franco - 09/30/2019 3:00 PM EST Sissy Eugene presents to the clinic for a cast off per Gege Harrell. The cast was intact uponarrival. The patient was explained how the cast saw works and the cast was removed. The patient tolerated this procedure well. The patient's skin was intact. The patient was then sent to x-ray. * Micki Paulson - 09/30/2019 3:00 PM EST Sissy Eugene presents to the cast room for cast application per Gege Harrell PA-C. The patient's skin is intact. The patient is placed in a well padded fiberglass short arm cast on the left side. The patient tolerated the procedure well. Details on icing, elevation and proper cast care was discussed with the patient. A cast bag was provided to the patient. The patient was given instructionto call the clinic with any questions or concerns. documented in this encounter Plan of Treatment Not on file documented as of this encounter Visit Diagnoses Diagnosis Closed Colles' fracture of left radius with routine healing, subsequent encounter documented in this encounter Care Teams Braided Band Assembler Relationship Specialty Start Date End Date Sari Hay MD [address] [facility] 1 [place] [address] PCP - General 05/21/11 documented as of this encounter
--- OUTSIDE RECORDS SUMMARY | 2024-04-26 15:49 | XMS_ITS | Encounter Summary ---
Author Organization [facility] Address [facility] [place] [address] Care Team Providers Care Boatbuilder Apprentice Wood Name Role Phone Sari Hay MD Primary Care Provider [phone] Encounter Details Date Type Department Care Team (Latest Contact Info) Description 11/29/2019 10:06 AM EST - 11/29/2019 11:59 PM [facility] Hospital Encounter XRay at [address] [place] [address] Celeste Hu APRN [facility] [place] [address] Closed Colles' fracture of left radius with routine healing, subsequent encounter; Presence of left artificial knee joint Discharge Disposition: Home Social [...] Date/Time Associated Diagnosis Comments XR KNEE AP & LAT LEFT Routine 11/29/2019 10:25 AM EST Presence of left artificial knee joint XR WRIST 3 VIEWS LEFT Routine 11/29/2019 10:25 AM EST Closed Colles' fracture of left radius with routine healing, subsequent encounter documented in this encounter Results * XR Knee 1-2 Views Left (Generic) (11/29/2019 10:25 AM EST) Anatomical Region Laterality Modality Knee Left Digital Radiogra phy Impressions 11/29/2019 2:18 PM EST Left total knee arthroplasty without complication. Question increasing effusion. I have personally reviewed the image(s) and the resident's interpretation and agree with the findings, Annette Pereira at 11/29/2019 2:18 PM Thank you for letting us participate in the care of this patient. For questions regarding this report, please contact the number below. ? Narrative 11/29/2019 2:18 PM EST EXAMINATION: XR KNEE 1-2 VIEWS LEFT (GENERIC) CLINICAL HISTORY: Left TKA (as entered by ordering provider in the order requisition) TECHNIQUE: AP and lateral views of the LEFT knee COMPARISON: 03/09/2019, 10/29/2017, and 09/07/2017 FINDINGS: The patient is status post total left knee arthroplasty, which is unchanged in alignment. No periprosthetic lucency or fracture. No large knee effusion in the suprapatellar recess. Increased bulging of the thick posterior joint capsule and may represent increased size a loculated knee effusion. Procedure Note Annette Pereira MD - 11/29/2019 EXAMINATION: XR KNEE 1-2 VIEWS LEFT (GENERIC) CLINICAL HISTORY: Left TKA (as entered by ordering provider in the order requisition) TECHNIQUE: AP and lateral views of the LEFT knee COMPARISON: 03/09/2019, 10/29/2017, and 09/07/2017 FINDINGS: The patient is status post total left knee arthroplasty, which isunchanged in alignment. No periprosthetic lucency or fracture. No large knee effusion in the suprapatellar recess. Increased bulging ofthe thick posterior joint capsule and may represent increased size a loculatedknee effusion. IMPRESSION Left total knee arthroplasty without complication. Question increasing effusion. I have personally reviewed the image(s) and the resident's interpretationand agree with the findings, Annette Pereira at 11/29/2019 2:18 PM Thank you for letting us participate in the care of this patient. Forquestions regarding this report, please contact the number below. Rod Valdez MD IMG DX ORDERABLES * XR Wrist 3 Views Left (11/29/2019 [...] please contact the number below. ? Narrative 11/29/2019 2:10 PM EST EXAMINATION: XR [...] this report, please contact the number below. Celeste A Fritz BRAIDED RUG MAKER IMG DX ORDERABLES documented in this encounter Visit Diagnoses Diagnosis Closed Colles' fracture of left radius with routine healing, subsequent encounter Presence of left artificial knee joint Knee joint replacement by other means documented in this encounter Care Teams Boatbuilder Apprentice Wood Relationship Specialty Start Date End Date Sari Hay MD [address] [facility] 1 [place] [address] PCP - General 05/21/11 documented as of this encounter
--- OUTSIDE RECORDS SUMMARY | 2024-04-26 15:49 | XMS_ITS | Encounter Summary ---
Author Organization [facility] [place] [address] Care Team Providers Care Power System Electrical Engineer Name Role Phone Sari Hay MD Primary Care Provider [phone] Reason for Referral * Diagnostic Test (Routine) - Closed Specialty Diagnoses / Procedures Referred By Emmanuel cisneros Referred To Contact Radiology Diagnoses Status post left knee replacement Procedures NM Bone Scan 3 Phase [facility] [address] [place] [phone] [place] [address] Referral ID Status Reason Start Date Expiration Date V isits Requested Visits Authorized [id number] Closed Specialty Service Requested 07/11/2020 01/09/2022 1 1 Reason for Visit * Reason Onset Date Comments Other 07/11/2020 Encounter Details Date Type Department Care Team (Late st Contact Info) Description 07/11/2020 Telephone [place] [address] Robert Cornell Other Social History Tobacco Use Types Packs/Day [...] encounter Miscellaneous Notes * Telephone Encounter - Cierra House - 07/12/2020 9:08 AM EDT Patient scheduled, may be calling back to reschedule, has to check with work first * Telephone Encounter - Robert Cornell - 07/11/2020 12:17 PM EDT Mrs. Eugene calls in today to follow-up on a long standing problem with her left knee. She reports that earlier in the year she was seen and there were concerns expressed regarding some possible loosening of her left tibial component of her TKA. She did not follow-up on this due to COVID-19. At this time she is experiencing more tightness/swelling with her left knee and can barely make it to a 90* bend without pain. She would like to follow-up now. Based on the notes from 11/29/19 from Trice Lujan PA-C she should have a bone scan to determine loosening of the tibial component. She would like to be able to follow-up with the provider the same day of bone scan. Routed to Trice for planning. Patient has a restricted schedule, however is available 07/20 and 07/23 documented in this encounter Plan of Treatment Not on file documented as of this encounter Results * NM Bone Scan [...] ? Electronically signed by: Anish France MD, [facility] ([phone]), at 08/29/2020 4:10 PM Narrative 08/29/2020 4:10 [...] contact the number below. Electronically signed by: Anish France MD, [facility]([phone]), at 08/29/2020 4:10 PM Rod Valdez MD IMG NM ORDERABLES documented in this encounter Visit Diagnoses Diagnosis Status post left knee replacement Status post left knee replacement documented in this encounter Care Teams Power System Electrical Engineer Relationship Specialty Start Date End Date Sari Hay MD [address] [place] [address] PCP - General 05/21/11 documented as of this encounter
--- OUTSIDE RECORDS SUMMARY | 2024-04-26 15:49 | XMS_ITS | Encounter Summary ---
Author Organization [facility] Address [facility] [place] [address] Care Team Providers Care Insolvency Consultant Name Role Phone Sari Hay MD Primary Care Provider [phone] Encounter Details Date Type Department Care Team (Latest Contact Info) Description 09/30/2019 2:54 PM EST - 09/30/2019 11:59 PM [facility] Hospital Encounter XRay at [address] [place] [address] Ammy Latham MD [facility] [place] [address] Closed Colles' fracture of left radius, initial encounter Discharge Disposition: Home Social History [...] to dental procedures. 12 capsule 07/26/2019 03/15/2021 rifAMPin (RIFADIN) 300 mg Capsule TAKE ONE CAPSULE BY MOUTH TWICE A DAY FOR 14 DAYS 60 capsule 1 07/06/2019 10/28/2019 gabapentin (NEURONTIN) 300 mg Capsule Take 900 mg nightly before bed for 3 weeks, then take 600mg nightly before bed for 2 weeks, then take 300mg nightly before bed for 2 weeks. 90 capsule 12 05/18/2019 10/28/2019 pantoprazole (PROTONIX) 20 mg Tablet, Delayed Release (E.C.) Take 1 tablet by mouth daily. 90 tablet 02/16/2019 10/28/2019 naproxen sodium (ANAPROX) 220 mg Tablet Take 1 tablet by mouth 2 times daily (with meals). 60 tablet 02/15/2019 03/15/2021 lisinopril (PRINIVIL;ZESTRIL) 30 mg Tablet Take 30 mg by mouth daily. 02/24/2015 10/28/2019 documented as of this encounter Plan of Treatment Not on file documented as of this encounter Procedures Procedure Name Priority Date/Time Associated Diagnosis Comments XR WRIST 3 VIEWS LEFT Routine 09/30/2019 3:03 PM EST Closed Colles' fracture of left radius, initial encounter documented in this encounter Results [...] please contact the number below. ? Narrative 09/30/2019 4:15 PM EST EXAMINATION: XR [...] encounter documented in this encounter Care Teams Insolvency Consultant Relationship Specialty Start Date End Date Sari Hay MD [facility] [address] [place] [address] PCP - General 05/21/11 documented as of this encounter
--- OUTSIDE RECORDS SUMMARY | 2024-04-26 15:49 | XMS_ITS | Encounter Summary ---
Author Organization [facility] Address [facility] [place] [address] Care Team Providers Care Shipping Order Clerk Name Role Phone Sari Hay MD Primary Care Provider [phone] Encounter Details Date Type Department Care Team (Late st Contact Info) Description 11/28/2019 Orders [place] [address] Rod Valdez MD [facility] DR [place] [address] Infection associated with internal right knee prosthesis, [...] documented as of this encounter Results * CRP, acute inflammation (11/29/2019 10:02 AM EST) CRP 1.5 <=4.9 mg/L [facility] Blood specimen (specimen) 11/29/2019 10:02 AM EST 11/29/2019 10:17 AM EST Narrative Resulting Agency Comment Spec In Lab Rod Valdez MD CHEMISTRY ORDERABLES Performing Organization Address City/[facility]/ZIP Co de Phone Number [facility] [place] [address] * Sedimentation rate (11/29/2019 10:02 AM EST) Sed Rate 11 2 - 39 mm/hr [facility] [...] MD HEMATOLOGY ORDERABLE S Performing Organization Address [facility] Co de Phone Number [facility] [place] [address] documented in this encounter Visit Diagnoses Diagnosis Infection associated with internal right knee prosthesis, subsequent encounter documented in this encounter Care Teams Shipping Order Clerk Relationship Specialty Start Date End Date Sari Hay MD [address] [place] [address] PCP - General 05/21/11 documented as of this encounter
--- OUTSIDE RECORDS SUMMARY | 2024-04-26 15:49 | XMS_ITS | Encounter Summary ---
Author Organization Counts Include [facility] Address [facility] [place] [address] Care Team Providers Care Stencil Cutter Machine Name Role Phone Sari Hay MD Primary Care Provider [phone] Reason for Visit * Reason Comments Medication Refill Encounter Details Date Type Department Care Team (Late st Contact Info) Description 07/05/2019 Refill [place] [address] Renato Burton MD [facility] [place] [address] Social History Tobacco Use Types Packs/Day Years [...] Miscellaneous Notes * Telephone Encounter - Candida Alvarado RN - 07/06/2019 4:58 PM EDT Needs refill Per 03/03/2019 ID note ?? 03/03/2019 ID note: ?? Transition to oral ciprofloxacin 750 (weight based dosing to optimize penetration to bone) with rifampin 300 mg po bid on 03/16/19 in combination for a total of 6 months of therapy from 5/14 (start date of combination therapy) documented in this encounter Plan of Treatment Not on file documented as of this encounter Visit Diagnoses Not on filedocumented in this encounter Care Teams Stencil Cutter Machine Relationship Specialty Start Date End Date Sari Hay MD [facility] [address] [facility] [address] [place] [address] PCP - General 05/21/11 documented as of this encounter
--- OUTSIDE RECORDS SUMMARY | 2024-04-26 15:49 | XMS_ITS | Encounter Summary ---
Author Organization [facility] [place] [address] Care Team Providers Care Medical Record Transcriber Name Role Phone Sari Hay MD Primary Care Provider [phone] Reason for Visit * Reason Onset Date Comments Other 07/26/2019 Antibiotic refil l Encounter Details Date Type Department Care Team ([facility] st Contact Info) Description 07/26/2019 Telephone [place] [id number] Andria Finch RN Other (Antibiotic refill) Social History Tobacco Use Types Packs/Day Years [...] encounter Miscellaneous Notes * Telephone Encounter - Andria Finch RN - 07/26/2019 9:25 AM EDT Marjorie karlie [employer] is dispensing amoxicillin 2000 mg. [phone] * Telephone Encounter - Andria Finch RN - 07/26/2019 8:52 AM EDT Patient called requesting antibiotic refill prior to dental work today. Per 05/18/[address] Valdez 2gm ampicillin needed. Patient confirmed no allergy to this med. Request [facility]. Script refilled as requested for dental procedure today. documented in this encounter Plan of Treatment Not on file documented as of this encounter Visit Diagnoses Diagnosis Infection associated with internal right knee prosthesis, initial encounter documented in this encounter Care Teams Medical Record Transcriber Relationship Specialty Start Date End Date Sari Hay MD [address] [place] [address] PCP - General 05/21/11 documented as of this encounter
--- OUTSIDE RECORDS SUMMARY | 2024-04-26 15:49 | XMS_ITS | Encounter Summary ---
Author Organization [facility] Address [facility] [address] Care Team Providers Care Correspondence School Teacher Name Role Phone Sari Hay MD Primary Care Provider [phone] Reason for Visit * Reason Onset Date Comments Appointment 01/03/2021 Encounter Details Date Type Department Care Team (Late st Contact Info) Description 01/03/2021 [place] [phone] Teressa Taylor PA [facility] DR ORTHOPAEDIC SURGERY [place] [id number] Appointment Social History Tobacco Use Types Packs/Day [...] * Telephone Encounter - Jessica Villa - 01/03/2021 8:21 AM EDT CLD PT TO SCHEDULE TOV W/STEPHANIE TAYLOR. PT TO CALL BACK TO SCHEDULE: NXR: SURGICAL DISCUSSION OF LEFT TKA REV-OK'D BY STEPHANIE Francisco documented in this encounter Plan of Treatment Not on file documented as of this encounter Visit Diagnoses Not on filedocumented in this encounter Care Teams Correspondence School Teacher Relationship Specialty Start Date End Date Sari Hay MD [address] [facility] [address] [place] [address] PCP - General 05/21/11 documented as of this encounter
--- OUTSIDE RECORDS SUMMARY | 2024-04-26 15:49 | XMS_ITS | Encounter Summary ---
Author Organization [facility] [place] [address] Care Team Providers Care Heating Unit Installer Name Role Phone Sari Hay MD Primary Care Provider [phone] Reason for Visit * Reason Comments Follow Up Fracture Closed Colles' fract ure of left radius Encounter Details Date Type Department Care Team (Late st Contact Info) Description 09/14/2019 1:45 PM EST Office [place] [address] Closed Colles' fracture of left radius with [...] this encounter Progress Notes * Micki Paulson Cristóbal - 09/14/2019 1:45 PM EST Sissy Eugene presents to the cast room for a cast on per LEO Rivera. The patient's skin is intact. The patient is placed in a well padded fiberglass short arm cast on the left side. Thepatient tolerated the procedure well. Details on icing, elevation and proper cast care was discussed with the patient. A cast bag was provided to the patient. The patient was given instruction to call the clinic with any questions or concerns. documented in this encounter Plan of Treatment Not on file documented as of this encounter Visit Diagnoses Diagnosis Closed Colles' fracture of left radius with routine healing, subsequent encounter documented in this encounter Care Teams Heating Unit Installer Relationship Specialty Start Date End Date Sari Hay MD [facility] [address] MA[address] [facility] 1 [place] [address] PCP - General 05/21/11 documented as of this encounter
--- OUTSIDE RECORDS SUMMARY | 2024-04-26 15:49 | XMS_ITS | Encounter Summary ---
Author Organization [facility] [place] [address] Care Team Providers Care Radio News Writer Name Role Phone Sari Hay MD Primary Care Provider [phone] Encounter Details Date Type Department Care Team (Late st Contact Info) Description 09/05/2019 Ancillary Procedure [place] [address] Sari Hay MD [facility] [address] [place], [place] [id number] Social History Tobacco Use Types Packs/Day Years [...] Diagnosis Comments FILM LIBRARY STORAGE ONLY DX WRIST Routine 09/05/2019 12:00 AM EST documented in this encounter Results * Film Library- Storage Only DX Wrist (09/05/2019 12:00 AM EST) Narrative [facility] - 09/07/2019 11:21 AM EST This exam is auto-finalizing. It's purpose is for storage only. Sari Hay MD IM FILM LIBRARY ORD ERABLES [place], [place] documented in this encounter Visit Diagnoses Not on filedocumented in this encounter Care Teams Radio News Writer Relationship Specialty Start Date End Date Sari Hay MD [address] [facility] [address] [place] [address] PCP - General 05/21/11 documented as of this encounter
--- OUTSIDE RECORDS SUMMARY | 2024-04-26 15:49 | XMS_ITS | Encounter Summary ---
Author Organization [facility] Address [facility] [place] [address] Care Team Providers Care Repair Service Dispatcher Name Role Phone Sari Hay MD Primary Care Provider [phone] Encounter Details Date Type Department Care Team (Latest Contact Info) Description 09/14/2019 11:06 AM EST - 09/14/2019 11:59 PM [facility] Hospital Encounter XRay at [address] [place] [address] Sachin Yang MD [facility] [place] [address] Closed fracture of distal end of left radius with routine healing, unspecified fracture morphology, subsequent encounter Discharge Disposition: Home Social History [...] Comments XR WRIST 3 VIEWS LEFT Routine 09/14/2019 11:18 AM EST Closed fracture of distal end of left radius with routine healing, unspecified fracture morphology, subsequent encounter documented in this encounter Results * XR Wrist 3 Views Left (09/14/2019 11:18 AM EST) Anatomical Region Laterality Modality Left Digital Radiogra phy Impressions 09/14/2019 3:48 PM EST Progression in healing, without change in alignment of the distal radius fracture. Thank you for letting us participate in the care of this patient. For questions regarding this report, please contact the number below. ? Electronically signed by: Charlotte Johnson [facility] ([phone]), at 09/14/2019 3:48 PM Narrative 09/14/2019 3:48 PM EST EXAMINATION: XR WRIST 3 VIEWS LEFT CLINICAL HISTORY: L distal radius fx DOI 09.05.19 TECHNIQUE: 3 views LEFT wrist COMPARISON: 09/05/2019 FINDINGS: Crease sclerosis and osseous bridging of the distal radius fracture; fracture lines are much less evident than on the prior exam. Osseous alignment is unchanged. Procedure Note Charlotte Johnson MD - 09/14/2019 EXAMINATION: XR WRIST 3 VIEWS LEFT CLINICAL HISTORY: L distal radius fx DOI 09.05.19 TECHNIQUE: 3 views LEFT wrist COMPARISON: 09/05/2019 FINDINGS: Crease sclerosis and osseous bridging of the distal radius fracture;fracture lines are much less evident than on the prior exam. Osseous alignment is unchanged. IMPRESSION Progression in healing, without change in alignment of the distal radius fracture. Thank you for letting us participate in the care of this patient. Forquestions regarding this report, please contact the number below. Electronically signed by: Charlotte Johnson [facility]([phone]), at 09/14/2019 3:48 PM Sachin Yang MD IMG DX ORDERABLES documented in this encounter Visit Diagnoses Diagnosis Closed fracture of distal end of left radius with routine healing, unspecified fracture morphology, subsequent encounter documented in this encounter Care Teams Repair Service Dispatcher Relationship Specialty Start Date End Date Sari Hay MD [address] [place] [address] PCP - General 05/21/11 documented as of this encounter
--- OUTSIDE RECORDS SUMMARY | 2024-04-26 15:50 | XMS_ITS | Encounter Summary ---
Author Organization [facility] Address [facility] [place] [address] Care Team Providers Care Bung Sewer Name Role Phone Sari Hay MD Primary Care Provider [phone] Encounter Details Date Type Department Care Team (Late st Contact Info) Description 02/18/2019 Orders [place] [address] Renato Burton MD [facility] [place] [address] Social History Tobacco Use Types Packs/Day Years [...] on filedocumented in this encounter Care Teams Bung Sewer Relationship Specialty Start Date End Date Sari Hay MD [address] [place] [address] PCP - General 05/21/11 documented as of this encounter
--- OUTSIDE RECORDS SUMMARY | 2024-04-26 15:50 | XMS_ITS | Encounter Summary ---
Author Organization [facility] Address [facility] [place] [address] Care Team Providers Care Archery Equipment Repairer Name Role Phone Sari Hay MD Primary Care Provider [phone] Reason for Visit * Reason Onset Date Comments Disability Paperwork 02/18/2019 Encounter Details Date Type Department Care Team (Late st Contact Info) Description 02/18/2019 Telephone [place] [address] Rod Valdez MD [facility] [place] [address] Disability Paperwork Social History Tobacco Use Types Packs/Day Years [...] encounter Miscellaneous Notes * Telephone Encounter - Katt Swanson - 02/18/2019 2:23 PM EDT Faxed/Mailed/Pick-up Date: Faxed /02/18/19 * Telephone Encounter - Katt Swanson - 02/18/2019 11:42 AM EDT Completed by: Thelma / To provider for review/signature: Dr. Valdez // 02/18/19 * Telephone Encounter - Katt Swanson - 02/18/2019 11:31 AM EDT Date Received: 02/18/19 Insurance/Disability Company Name: [employer] Release on file/mailed: On File documented in this encounter Plan of Treatment Not on file documented as of this encounter Visit Diagnoses Not on filedocumented in this encounter Care Teams Archery Equipment Repairer Relationship Specialty Start Date End Date Sari Hay MD [address] [facility] 1 [place] [address] PCP - General 05/21/11 documented as of this encounter
--- OUTSIDE RECORDS SUMMARY | 2024-04-26 15:50 | XMS_ITS | Encounter Summary ---
Author Organization [facility] Address [facility] Argenis dean [place] [id number] Care Team Providers Care Oral And Maxillofacial Surgery Name Role Phone Sari Hay MD Primary Care Provider [phone] Reason for Referral * Consultation (Routine) - Specialty Diagnoses / Procedures Referred By Emmanuel cisneros Referred To Contact Infectious Diseases Diagnoses Pyogenic arthritis of left knee joint, due to unspecified organism Infection associated with internal right knee prosthesis, subsequent encounter Encounter for long-term (current) use of antibiotics Alma Matthew MD [facility] [place] [address] lAma Matthew MD [facility] [place] [address] Referral ID Status Reason Start Date Expiration Date V isits Requested Visits Authorized [id number] Assume Subset of Care 02/15/2019 02/15/2020 1 1 Reason for Visit * Reason Comments Hospital Transfer Knee Pain concern for peripros thetic knee infection * Auth/Cert Specialty Diagnoses / Procedures Referred By Emmanuel cisneros Referred To Contact Diagnoses Infection of prosthetic left knee joint Procedures EMERGENCY IPI Referral ID Status Reason Start Date Expiration Date Visits Re quested Visits Authorized [id number] 1 1 Encounter Details Date Type Department Care Team (Late st Contact Info) Description 02/10/2019 4:46 AM EDT - 02/15/2019 2:13 PM EDT Hospital Encounter [address] [place] [address] Reza Gutierrez MD [address] [facility] [place] [address] Louis Rodrigues MD [facility] [address] [place] [address] Karen Nixon MD [facility] [address] [place] [address] Rod Valdez MD [facility] DR [place] [address] Pyogenic arthritis of left knee joint, due to unspecified organism; Infection associated with internal right knee prosthesis, subsequent encounter; Encounter for long-term (current) use of antibiotics; Infection associated with internal left knee prosthesis, subsequent encounter Discharge Disposition: Home with VNA Social History [...] Sign Reading Time Taken Comments Blood Pressure 133/67 02/15/2019 11:55 AM EDT Pulse 68 02/14/2019 4:18 PM EDT Temperature 36.8 ??C (98.2 ??F) 02/15/2019 11:55 AM E DT Respiratory Rate 16 02/15/2019 11:55 AM EDT Oxygen Saturation 100% 02/15/2019 11:55 AM EDT Inhaled Oxygen Concentration - - Weight 125.6 kg (277 lb) 02/10/2019 10:51 AM EDT Height 177.8 cm (5' 10) 02/10/2019 10:51 AM EDT Body Mass Index 39.75 02/10/2019 10:51 AM EDT documented in this encounter Discharge Summaries * Maria Luisa Gross PA - 02/15/2019 7:07 AM EDT Discharge Summary Patient Name: Sissy Eugene Patient Age: 53 y.o. Language: Welsh Race: White Ethnicity: Not nor Admit date: 02/10/2019 Discharge date and time: 02/15/2019 Attending Physician: Rod Valdez MD Discharge Physician: Rod Valdez MD Follow-up Recommendations for Providers: See discharge instructions for additional details. Future Appointments Date Time Provider Department Center 03/03/2019 10:00 AM Naina King DO [facility] 03/09/2019 1:30 PM [facility] DX ROOM 3 Xray [facility] 03/09/2019 2:30 PM Rod Valdez MD [facility] 03/16/2019 9:30 AM Renato Burton MD [facility] Inpatient Provider Contact Information: Rod Valdez MD Orthopedics: [phone] After hours and weekends, call [facility] Prompt Care Rn, , and have the Orthopedic resident paged. Discharge Diagnoses (Hospital Problems) and Secondary Diagnoses (Chronic Problems): Active Hospital Problems Diagnosis ??? Obesity, Class II, BMI 35-39.9 ??? Postoperative anemia due to acute blood loss ? ? s/p left knee I&D, polyethylene exchange for acute PJI with Dr. Valdez 02/10/19 Resolved Hospital Problems No resolved problems to display. Active Non-Hospital Problems Diagnosis ??? S/P orthopedic surgery, follow-up exam ??? Hammer toe of left foot Operations/Major Procedures: 02/10/2019 Surgeon(s) and Role: * Rod Valdez MD - Primary * Pia Bennett MD - Resident Procedure(s): @TOTAL KNEE REVISION ARTHROPLASTY, ONE COMPONENT (WRVU 21.12) 02/11/2019 Catheter type: PICC Lot number: [id number] Procedure Details: Order received for catheter placement. A 4 Fr. single lumen Bard Power catheter was placed into the right basilic vein over a 0.018 inch guidewire using modified seldinger technique and fluoroscopy. Arm circumference was 37 cm at 2 cm above the insertion site. Final catheter length (with trimming): 42 cm ??Internal: 42 cm ??External: 0 cm Tip in SVC per DR GIBSON. The line was not placed over a guidewire. History of Presentation: Sissy Eugene is a 53 y.o. female with chronic pain and stiffness after L TKA. ??Recent arthroscopic lysis of adhesions. ??Inflammatory markers yesterday were normal with mildly elevated intra-articular cell count and differential. ??Repeat markers at [facility] were elevated with CRP of 18 and ESR of11. ??Repeat cell count of 27,738 (94% PMNs). ??Now consistent with acute PJI. ?? Risks and benefits of I&D/polyswap vs 2 stage revision were discussed with patient. ??Given acute nature of pain and less than 24 hours of abnormal labs, I think proceeding for I&D/polyswap has good chance of infection eradication. ?? Risks of surgery were discussed with the patient including leaning and blood transfusion, blood clots and pulmonary embolism, delayed wound healing, recurren t infection, need for further surgery, knee instability, implant failure, and medical complicationsup to and including . Despite these risks the patient wished to proceed with surgery and informed consent was signed. The left knee was again indicated as the operative site. Hospital Course: Sissy Eugene is a 53 y.o. female admitted for the above diagnosis. Infectious disease was consulted for assistance with antibiotic selection and management. On POD#1 Sissy Eugene started physical therapy with weight bearing as tolerated. Sissy Eugene was changed to oral pain medicationson POD#1 and was comfortable. The daigle catheter was removed on POD#1 and she was voiding without difficulty. POD#2 Hb noted to be 11.7 down from 12.2. Expected postoperative anemia from acute blood loss secondary to injury and above noted procedure. No intervention indicated. On POD#5 the dressingwas dry and intact and the wound was benign. She did have a bowel movement prior to discharge and was passing flatus and taking po without difficulty. On POD#5 was afebrile, with stable vital signs and was deemed stable for discharge to home. Of note: 1. To assist with the administration of IV antibiotics a PICC line was placed on 02/11/2019 (see above for details of line). 2. OPAT was also consulted to assist with home care administration of IV antibiotics as well as monitoring. Final ID recommendations were Ceftriaxone 2 g Q12H for 6 weeks ending on 03/24/2019. Infectious Disease Consult: Renato Burton MD Physician Infectious Disease Progress Notes Signed Date of Service: 02/13/2019 ??3:24 PM Infectious Diseases Attending ?? Doing well, tolerable knee discomfort. ?? Temp: [36.6 ??C (97.8 ??F)-36.8 ??C (98.2 ??F)] Heart Rate: -- Resp: [6-18] BP: (117-137)/(70-83) SpO2: [94 %-98 %] Heart Rate from SpO2: [67 bpm-77 bpm] ?? PICC line in place, non-tender Knee swollen (appropriate post-op appearance), wound intact ?? S. lugdunensis from multiple cultures. ?? Although susceptibilities are not yet back, most strains are susceptible to ceftriaxone. I have placed OPAT orders, but we will review them tomorrow in light of final culture results. Vital Signs at Discharge: Weight: Wt Readings from Last 1 Encounters: 02/10/19 125.6 kg (277 lb) Height: Ht Readings from Last 1 Encounters: 02/10/19 177.8 cm (5' 10) HC: HC Readings from Last 1 Encounters: No data found for HC BMI: Body mass index is 39.75 kg/m??. Last value Range last 24 hrs Temperature Temp: 36.8 ??C (98.2 ??F) Temp: [36.7 ??C (98.1 ??F)-37 ??C (98.6 ??F)] Heart Rate Heart Rate: 68 Heart Rate: [68] Blood Pressure BP: 133/67 BP: (116-142)/(67-83) Respiratory Rate Resp: 16 Resp: [14-18] SpO2 SpO2: 100 % SpO2: [95 %-100 %] Art BP BP (Arterial Line): -- Functional and Cognitive Status: Patient mobilizing with FWW, cognitively intact at baseline mentalstatus at time of discharge. Important Lab Data: Last 3 wbc, hgb, hct plt Recent Labs 02/13/19 0323 02/12/19 0408 02/11/19 0307 WBC 6.7 9.7* 9.1 HGB 10.9* 11.7 12.2 HCT 33.8* 36.0 38.1 PLATELET 241 233 229 Last 3 Lytes Recent Labs 02/13/19 0323 02/12/19 0408 02/11/19 0307 NA 143 141 140 K 3.5 3.8 3.9 CL 106 105 104 CO2 28 26 25 BUN 6* 9 13 CREATININE 0.77 0.84 0.80 Last 3 HgbA1C Recent Labs 02/11/19 0307 HA1C 5.4 Last CRP, SEDRATE Recent Labs 02/10/19 0540 CRP 18.2* SEDRATE 11 Studies: No results found. Pending Studies and Lab Data at Discharge: * No orders in the log * Transfusions: No Discharge Conditions/Prognosis: Stable, awake, and alert. Mobilizing as noted above, pain controlled on oral medications. Discharge to: Home HOME HEALTH CARE AGENCY: ??[facility] ?? PHONE: [phone] FAX: [phone] Updated Allergies/ADRs: Allergies Allergen Reactions ??? Adhesive Bandage Rash ??? Codeine Nausea Only Immunizations Given this Hospitalization: There is no immunization history on file for this patient. Discharge Medications: Your Medications New Medications Dose Details acetaminophen 500 mg Tab Commonly known as: TYLENOL Take 2 tablets by mouth every 8 hours. 1000 mg Quantity: 30 tablet Refills: 1 aspirin 81 mg Tbec Take 1 tablet by mouth 2 times daily for 25 days. 81 mg Quantity: 50 tablet Refills: 0 cefTRIAXone 1 gram Solr Commonly known as: ROCEPHIN Inject 2,000 mg into the vein 2 times daily for 38 days. 2 g Quantity: 1500 mL Refills: 0 diphenhydrAMINE 25 mg Cap Commonly known as: BENADRYL Take 1 capsule by mouth 2 times daily as needed for Itching or Sleep. 25 mg Quantity: 30 capsule Refills: 0 gabapentin 300 mg Cap Commonly known as: NEURONTIN Take 1 capsule by mouth nightly. 300 mg Quantity: 30 capsule Refills: 0 naproxen sodium 220 mg Tab Commonly known as: ANAPROX Take 1 tablet by mouth 2 times daily (with meals). 220 mg Quantity: 60 tablet Refills: 0 oxyCODONE 5 mg Tab Commonly known as: ROXICODONE Take 1-2 tablets by mouth every 4 hours as needed for Pain. 5-10 mg Quantity: 40 tablet Refills: 0 pantoprazole 20 mg Tbec Commonly known as: PROTONIX Take 1 tablet by mouth daily. Start taking on: 02/16/2019 20 mg Quantity: 90 tablet Refills: 0 polyethylene glycol 17 gram Pwpk Commonly known as: MIRALAX Take 17 g by mouth 2 times daily. 17 g Quantity: 14 each Refills: 0 senna-docusate 8.6-50 mg Tab Commonly known as: PERICOLACE Take 2 tablets by mouth 2 times daily. 2 tablet Quantity: 60 tablet Refills: 0 Continued medications, unchanged Dose Details lisinopril 30 mg Tab Commonly known as: PRINIVIL;ZESTRIL Take 30 mg by mouth daily. 30 mg Refills: 0 Smoking Status at Discharge: Social History Tobacco Use Smoking Status Former Smoker ??? Packs/day: 0.50 ??? Years: 15.00 ??? Pack years: 7.50 ??? Types: Cigarettes ??? Last attempt to quit: 07/18/2003 ??? Years since quittin.5 Smokeless Tobacco Never Used Instructions for Rehab Providers or PCP: See below. Instructions Given to Patient at Discharge: Patient Instructions Orthopedic Surgery Discharge Instructions Activity: 1. Your weight-bearing status is [...] days after surgery. After your dose on 03/12/2019 stop the Aspirin, unlessyou are told otherwise by your Orthopedic surgeon. [...] bowel movement. You can also take an crxa-irs-wfrhfyx medication, Miralax if needed to combat constipation. 2. If you need a renewal on your narcotic pain medication, you need to give the Orthopedic clinic enough time to process your request. This can take up to three days, so plan accordingly. 3. Continue acetaminophen (Tylenol) 1,000mg every 8 hours around the clock until 02/19/19 (for ten days after your surgery). This can be effective in controlling pain along with your other medications. After that you can take Tylenol as needed per package insert. Do not take more than 3,000mg of acetaminophen in a 24 hour period. 4. You have been discharged on a short acting narcotic, Oxycodone. You will be on this medication for [...] a day for the next 6 weeks. Your last dose will be on 03/23/2019. If you no longer are requiringthe narcotic pain medication you may change the way you take the prescribed naproxen and instead take twice a day as needed. 6. You are being discharged on a proton pump inhibitor (Protonix). This will decrease stomach irritation that may be caused by NSAIDs. Take this daily for the next 6 weeks while you are on the NSAID. 7. You are being discharged on gabapentin (Neurontin), a non-narcotic medication that will help with your pain at night and allow you to sleep better. Take this at night for the next 4 weeks. 8. You have been discharged on Ceftriaxone 2g Q12H for approximately 6 weeks ending on 03/24/2019. Shower (internal sutures): 1. You can shower [...] operative dressing 7 days after your surgery (02/16). When it is removed you can leave [...] you get home (and it is before 02/16), remove the operative dressing and replace it [...] your leg elevated as much as possible. Adult PICC Line Care Discharge Instructions Access type Adult PICC line Flush protocol with medication infusion (SASH) Heparin concentration 10units/ml Before Med: 10ml Normal Saline After Med: 10ml Normal Saline THEN 3ml Heparin Additional lumens: Flush 2x's daily & prn 10ml Normal Saline THEN 3ml Heparin Flush protocol after blood withdrawal Before: 10ml Normal Saline Draw blood After: 20ml Normal Saline THEN 3ml Heparin Flush without med (each lumen) Flush 2x's daily & prn: 10ml Normal Saline THEN 3ml Heparin PICC line dressing Weekly and prn. Please use CHG or Bio Patch Catheter Occlusion management Instill reconstituted Cathflo 2mg per instillation (based on volume of the catheter lumen). May repeat x1 per occlusion incident. General Instructions: 1. Use positive pressure device for end cap. Change device once/week and prn. 2. To obtain labs from lines, withdraw 2-3ml blood and discard prior to obtaining lab specimens. 3. Use vigorous push stop technique when flushing PICC Lines to crease turbulence in line and help maintain patency. 4. Please notify OPAT Program ([phone]) whenever you are unable to withdraw blood. Call your doctor ([phone]) if you develop: 1. Fever greater than 100.5 2. Severe nausea or vomiting 3. Increasing pain that is not controlled by pain medications 4. Increasing redness, swelling, or drainage from incisions 5. Change in sensation FOLLOW-UP APPOINTMENTS: 1. You will have follow-up appointments at [facility] as indicated below in Future Appointment and Orders. 2. You will need to have x-rays prior to your follow-up appointment on 03/09/19. Please come to Radiology, desk 3T, 1 hour BEFORE that appointment for those x-rays. Future Appointments Date Time Provider Department Center 03/03/2019 10:00 AM ChristineNaina quijano DO [facility] 03/09/2019 1:30 PM [facility] DX ROOM 3 [place] [facility] 03/09/2019 2:30 PM Rod Valdez MD [facility] 03/16/2019 9:30 AM Renato Burton MD [facility] If you have questions or concerns: Thursday through Thursday, 8 AM - 5 PM, please call Dr. Rod Valdez MD's office at . If it is after 5 PM, the weekend, or holidays, please call and ask to speak with theOrthopedic resident on-call. General Instructions OFFICE OF CARE MANAGEMENT/Carrier Loader/PROGRESS NOTE e-DH reviewed. Report received from Patient continues to require acute inpatient care for the treatment of Left Total Knee ArthroplastyPJI now s/p polyswap with Dr Valdez on 02/10/19 Receiving Ceftriaxone 2g IV q24hr x 6 weeks. Antibiotic time changed today to 4pm administration. [facility] completed teach with patient today. Patient has PICC Line PICC Line - Single Lumen 02/11/19 1702 basilic vein (medial side of arm), right 4 Fr Plan: is for patient to discharge tomorrow, Thursday, 02/15 and [facility] will deliver antibiotic scheduled for 3pm to patient's home. VN is scheduled to arrive at patient's home between 3 and 4 pm Thursday for administration and teaching reinforcement VN agency is: [facility] [employer]. PHONE: [phone] FAX: [phone] Home Infusion Vendor: Patient requested referral to [place], [place] or Plan: CM will continue to follow for coordination of care and to facilitate discharge planning. Future Appointments and Orders Future Appointments and Orders Future Appointments Provider Department Dept Phone 03/03/2019 10:00 AM Naina King DO Infectious Disease at [place] Arrive at: [facility] [phone] 03/09/2019 1:30 PM [facility] DX ROOM 3 XRay at [place] Arrive at: [facility] [phone] Please go to [facility] ([place] Location). 03/09/2019 2:30 PM Rod Valdez MD Orthopaedics at [place] Arrive at: [facility] [phone] 03/16/2019 9:30 AM Renato Burton MD Infectious Disease at [place] Arrive at: [facility] [phone] Future Orders Complete By Expires XR Knee 1-2 Views Left (Generic) [92648 Custom] 03/10/2019 09/09/2019 Process Instructions: Scheduling Instructions: Comments: Questions: Where will study be performed?: [place] [facility] Portable exam?: Reason for exam and clinical history: s/p polyswap 02/10/19 Other pertinent information: Is the patient ?: Unknown Stat read required?: Date of injury if applicable: Requested Time: OPAT: Order / Recommendation for Post Discharge IV Antibiotic Management [NZQ118 CPT(R)] As directed Process Instructions: If no progress note charted, please enter Clinical details in comments. Scheduling Instructions: Comments: Please Fax all results to: OPAT Program Infectious Disease Section [facility], [place] [address] FAX: Line care instructions per [facility] OPAT Program protocol. After hours, please contact the Infectious Disease Physician keyboard action assembler at . If this order was signed greater than 72 hours prior to [facility] discharge, please call to confirm the accuracy of this order. Questions: ID Diagnosis: Left Knee PJI, s/p Polyswap Microorganisms being treated: Staphylococcus lugdunenis Antibiotic Allergies: No Known Antibiotic Drug Allergies Antibiotic (one line for each ABx): Ceftriaxone 2 Grams IV Every 12 Hours Start date: 02/14/2019 Anticipated stop date: 03/24/2019 Labs: Every Thursday: CBC, CMP Comment - CBC w/Diff AND Inflammatory CRP Every Thursday Last documented weight (kg): 125.6 kg (277 lb) Last documented height (cm): 177.8 cm (5' 10) Responsible Attending: Other Other Provider: Alma Matthew MD Referral for Outpatient Antibiotics [GWK4913 CPT(R)] As directed Process Instructions: Scheduling Instructions: Comments: See OPAT orders for specific abx. Flushes Per protocol. Coordinate with [email or web address] [facility]. PHONE: [phone] FAX: [phone] Questions: Vendor / contact information: [facility] Patient location post discharge: home Service requested: antibiotics via PICC line Start date: 02/14/2019 Responsible MD post discharge contact info: ortho/pcp Referral to Home Health - at DISCHARGE [[id number] CPT(R)] As directed Process Instructions: Scheduling Instructions: Comments: DOCUMENTATION FOR VNA SERVICES (INCLUDING THOSE PATIENTS WITH MEDICARE COVERAGE REQUIRING HOME VNA SERVICES AND/OR HOSPICE SERVICES) PATIENT'S LOCATION: Sissy Eugene [address] [place] [address] [address] [facility] [address] (home) Cell: Telephone Information: Rn Transition's Name: patient and spouse In discussion with the attending physician, it is certified that this patient is under their care and that they, or a Nurse Practitioner,Clinical Nurse specialist or Physician Copy Supervisor who is working directly with them, had a face to face encounter that meets the physician face to face encounter requirements with this patient on February 13, 2019. The encounter with the patient was in whole, or in part, for the following medical condition, whichis the primary reason for home health care services: S/P Left knee I &D polyethylene exchange for acute PJI. In discussion with the provider, it is certified that, based on their findings, the following services are medically necessary for home health services. To provide the following care/treatments with the clinical findings supporting the need for services as follows: HOME CARE ORDERS: RN ORDERS:Assess wound or incision, vital signs, cardiopulmonary status, nutrition, hydration, elimination, meds effectiveness and management; reinforce education re health issues. Patient has PICC line and receiving IV antibiotics. See OPAT orders for abx, and labs. PICC line dressing change weekly. Supplies from: [place], [place] or Venous Access Device Maintenance Protocols Adult PICC: ??single lumen Flush protocol with ??medication infusion (SASH) Before Med: 10ml saline flush After Med: ??10ml saline flush then 3ml 10 Units/ml heparin flush ?? Sterile Dressing and injection port change: ??Weekly/PRN Catheter Occlusion Management: ??Instill reconstituted CathFlo up to 2mg per instillation based on the volume of the catheter lumen; may repeat X1 per occlusion incident. PT ORDERS: Continue rehab for endurance, gait stability and strength with mobility and transfers. Home safety evaluation. Home exercise program if appropriate. HOME HEALTH CARE AGENCY: [facility]. PHONE: [phone] FAX: [phone] Start of care: 02/14/2019 Please note that any additional orders needs or changes will need to be obtained from this patient's PCP: MD Margarita Brewster DR / [facility] [id number] All A agencies which cover the area of patient's residence have been reviewed, either verbally shaun writing, and patient/family have chosen the home health care agency noted Questions: Agency name and contact information: [facility] Patient location post discharge: home What services are requested: Registered Nurse Start date: 02/14/2019 Responsible MD post discharge contact info: ortho/pcp Primary Care Provider: Sari Hay MD [phone] Discharge References/Attachments None documented in this encounter Discharge Instructions * Discharge Instructions* Janene Hu RN - 02/14/2019 10:35 PM EDT OFFICE OF CARE MANAGEMENT/Carrier Loader/PROGRESS NOTE e-DH reviewed. Report received from Patient continues to require acute inpatient care for the treatment of Left Total Knee ArthroplastyPJI now s/p polyswap with Dr Valdez on 02/10/19 Receiving Ceftriaxone 2g IV q24hr x 6 weeks. Antibiotic time changed today to 4pm administration. [facility] completed teach with patient today. Patient has PICC Line PICC Line - Single Lumen 02/11/19 1702 basilic vein (medial side of arm), right 4 Fr Plan: is for patient to discharge tomorrow, Thursday, 02/15 and [facility] will deliver antibiotic scheduled for 3pm to patient's home. VN is scheduled to arrive at patient's home between 3 and 4 pm Thursday for administration and teaching reinforcement VN agency is: [facility] PHONE: [phone] FAX: [phone] [facility] Plan: CM will continue to follow for coordination of care and to facilitate discharge planning. * Patient Instructions* Maria Luisa Gross PA - 02/10/2019 1:34 PM EDT Orthopedic Surgery Discharge Instructions Activity: 1. Your weight-bearing status is [...] days after surgery. After your dose on 03/12/2019 stop the Aspirin, unlessyou are told otherwise by your Orthopedic surgeon. [...] bowel movement. You can also take an qyjh-dvx-inrqyso medication, Miralax if needed to combat constipation. 2. If you need a renewal on your narcotic pain medication, you need to give the Orthopedic clinic enough time to process your request. This can take up to three days, so plan accordingly. 3. Continue acetaminophen (Tylenol) 1,000mg every 8 hours around the clock until 02/19/19 (for ten days after your surgery). This can be effective in controlling pain along with your other medications. After that you can take Tylenol as needed per package insert. Do not take more than 3,000mg of acetaminophen in a 24 hour period. 4. You have been discharged on a short acting narcotic, Oxycodone. You will be on this medication for [...] a day for the next 6 weeks. Your last dose will be on 03/23/2019. If you no longer are requiringthe narcotic pain medication you may change the way you take the prescribed naproxen and instead take twice a day as needed. 6. You are being discharged on a proton pump inhibitor (Protonix). This will decrease stomach irritation that may be caused by NSAIDs. Take this daily for the next 6 weeks while you are on the NSAID. 7. You are being discharged on gabapentin (Neurontin), a non-narcotic medication that will help with your pain at night and allow you to sleep better. Take this at night for the next 4 weeks. 8. You have been discharged on Ceftriaxone 2g Q12H for approximately 6 weeks ending on 03/24/2019. Shower (internal sutures): 1. You can shower [...] operative dressing 7 days after your surgery (02/16). When it is removed you can leave [...] you get home (and it is before 02/16), remove the operative dressing and replace it [...] your leg elevated as much as possible. Adult PICC Line Care Discharge Instructions Access type Adult PICC line Flush protocol with medication infusion (SASH) Heparin concentration 10units/ml Before Med: 10ml Normal Saline After Med: 10ml Normal Saline THEN 3ml Heparin Additional lumens: Flush 2x's daily & prn 10ml Normal Saline THEN 3ml Heparin Flush protocol after blood withdrawal Before: 10ml Normal Saline Draw blood After: 20ml Normal Saline THEN 3ml Heparin Flush without med (each lumen) Flush 2x's daily & prn: 10ml Normal Saline THEN 3ml Heparin PICC line dressing Weekly and prn. Please use CHG or Bio Patch Catheter Occlusion management Instill reconstituted Cathflo 2mg per instillation (based on volume of the catheter lumen). May repeat x1 per occlusion incident. General Instructions: 1. Use positive pressure device for end cap. Change device once/week and prn. 2. To obtain labs from lines, withdraw 2-3ml blood and discard prior to obtaining lab specimens. 3. Use vigorous push stop technique when flushing PICC Lines to crease turbulence in line and help maintain patency. 4. Please notify OPAT Program ([phone]) whenever you are unable to withdraw blood. Call your doctor ([phone]) if you develop: 1. Fever greater than 100.5 2. Severe nausea or vomiting 3. Increasing pain that is not controlled by pain medications 4. Increasing redness, swelling, or drainage from incisions 5. Change in sensation FOLLOW-UP APPOINTMENTS: 1. You will have follow-up appointments at [facility] as indicated below in Future Appointment and Orders. 2. You will need to have x-rays prior to your follow-up appointment on 03/09/19. Please come to Radiology, desk 3T, 1 hour BEFORE that appointment for those x-rays. Future Appointments Date Time Provider Department Center 03/03/2019 10:00 AM Naina King DO [facility] 03/09/2019 1:30 PM [facility] DX ROOM 3 Xray [facility] 03/09/2019 2:30 PM Rod Valdez MD [facility] 03/16/2019 9:30 AM Renato Burton MD [facility] If you have questions or concerns: Thursday through Thursday, 8 AM - 5 PM, please call Dr. Rod Valdez MD's office at . If it is after 5 PM, the weekend, or holidays, please call and ask to speak with theOrthopedic resident on-call. documented in this encounter Medications at Time of Discharge Medication Sig Dispensed Refills Start Date End Date cefTRIAXone (ROCEPHIN) 1 gram Recon Soln Inject 2,000 mg into the vein 2 times daily for 38 days. 1500 mL 02/15/2019 03/25/2019 acetaminophen (TYLENOL) 500 mg Tablet Take 2 tablets by mouth every 8 hours. 30 tablet 1 02/15/2019 03/09/2019 aspirin 81 mg Tablet, Delayed Release (E.C.) Take 1 tablet by mouth 2 times daily for 25 days. 50 tablet 02/15/2019 03/09/2019 diphenhydrAMINE (BENADRYL) 25 mg Capsule Take 1 capsule by mouth 2 times daily as needed for Itching or Sleep. 30 capsule 02/15/2019 03/09/2019 gabapentin (NEURONTIN) 300 mg Capsule Take 1 capsule by mouth nightly. 30 capsule 02/15/2019 05/18/2019 oxyCODONE (ROXICODONE) 5 mg Tablet Take 1-2 tablets by mouth every 4 hours as needed for Pain. 40 tablet 02/15/2019 03/03/2019 pantoprazole (PROTONIX) 20 mg Tablet, Delayed Release (E.C.) Take 1 tablet by mouth daily. 90 tablet 02/16/2019 10/28/2019 polyethylene glycol (MIRALAX) 17 gram Powder in Packet Take 17 g by mouth 2 times daily. 14 each 02/15/2019 03/03/2019 senna-docusate (PERICOLACE) 8.6-50 mg Tablet Take 2 tablets by mouth 2 times daily. 60 tablet 02/15/2019 03/03/2019 naproxen sodium (ANAPROX) 220 mg Tablet Take 1 tablet by mouth 2 times daily (with meals). 60 tablet 02/15/2019 03/15/2021 lisinopril (PRINIVIL;ZESTRIL) 30 mg Tablet Take 30 mg by mouth daily. 02/24/2015 10/28/2019 documented as of this encounter Progress Notes * Haily Meade - 02/15/2019 2:13 PM EDT ID OPAT Note 53/F s/p L TKA (09/2017), followed by more recent arthroscopic surgery on 01/18, currently admitted with prosthetic joint infection s/p poly-swap 02/10/2019. Preoperative knee aspiration with 27K WBCs,94% neutrophils. In the OR they noted well fixed components. This, as well as her acute onset drovedecision for single-stage procedure. 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 BUDDY to ceftriaxone is 1, and we have recommended a 6-week course with this antibiotic dosed at 2 g twice daily given her weight being over 120 kg ( She is currently 125.6 kg). Upon further review with her following ID team, will additionally add rifampin given that she had apolyswap, and the particular pathogen growing. For this Staphylococcus lugdunensis L PJI, treat with ceftriaxone 2 g twice daily Add Rifampin 300mg BID Duration 6 weeks, from 02/10/2019; may consider stepping down to longer course of PO antibiotics, amadou determined by ID clinic follow up Weekly labs: CBC, CMP, CRP Follow-up with infectious disease in clinic, ideally 2 weeks after discharge SL PICC in place Haily Meade MD Infectious Disease Fellow Personal Pager #[phone] 02/15/2019 * Liliana Cisneros RN - 02/15/2019 1:57 PM EDT Patient discharge to home with VNA services. Discharge summary faxed. IV removed, site benign. My assessment remains unchanged from my previous assessment. Patient has all belongings and supplies needed. Patient received After Visit Summary and prescriptions. These were reviewed, patient verbalizes understanding of AVS. All questions answered. Patient encouraged to call with questions or concerns. Patient discharged to home with family. * Corine Hu RN - 02/15/2019 1:22 PM EDT Office of Care Managment (OCM /Caremanger (CM)/ Discharge planning ) Service Ortho Pager # Check daily e-DH reviewed. This mortgage loan underwriter confirmed that [place] can see patient tonight for initial dose of antibiotic @ 8:30 Pt ready to D/C [facility] will deliver medication to home between 4 pm and 6pm. ?? Plan: CM will continue to follow for coordination of care and to facilitate discharge planning. ? Corine Hu RN CM Pager [phone] * Pia Bennett MD - 02/15/2019 5:48 AM EDT ORTHOPAEDIC SURGERY INPATIENT PROGRESS NOTE Patient Name: Sissy Eugene Age: 53 y.o. 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 Valdez Date of surgery: 02/10/2019 SUBJECTIVE / INTERVAL HISTORY: NAEON. AFVSS. A little stiff in the knee but feels well. Voiding, tolerating PO. Denies any cp, sob, n/v. ID awaiting culture sensitivities. FOCUSED REVIEW OF SYSTEMS: as above. Active Hospital Problems Diagnosis ??? Postoperative anemia due to acute blood loss ? ? s/p left knee I&D, polyethylene exchange for acute PJI with Dr. Valdez 02/10/19 Resolved Hospital Problems No resolved problems to display. Active Non-Hospital Problems Diagnosis ??? S/P orthopedic surgery, follow-up exam ??? Hammer toe of left foot MEDICATIONS: ??? cefTRIAXone (ROCEPHIN) 2 g vial attach to sodium chloride 0.9% 50 mL Mini- Bag Plus ??? diphenhydrAMINE (BENADRYL) capsule 25 mg ??? ketorolac (TORADOL) injection ??? BUpivacaine-EPINEPHrine 0.25 %-1:200,000 injection ??? lisinopril (PRINIVIL;ZESTRIL) tablet 30 mg ??? sodium chloride 0.9 % flush 5 mL ??? sodium chloride 0.9 % flush 5-20 mL ??? lidocaine (XYLOCAINE) 10 mg/mL (1 %) injection 3 mg ??? polyethylene glycol (MIRALAX) packet 17 g ??? senna-docusate (PERICOLACE) 8.6-50 mg per tablet 2 tablet ??? bisacodyl (DULCOLAX) EC tablet 10 mg ??? bisacodyl (DULCOLAX) suppository 10 mg ??? acetaminophen (TYLENOL) tablet 1,000 mg ??? [COMPLETED] gabapentin (NEURONTIN) capsule 600 mg FOLLOWED BY gabapentin (NEURONTIN) capsule 300 mg ??? celecoxib (CeleBREX) capsule 200 mg ??? pantoprazole (PROTONIX) tablet 20 mg ??? aspirin EC tablet 81 mg ??? multivitamin with minerals (THERA-M) tablet 1 tablet ??? oxyCODONE (ROXICODONE) immediate release tablet 5-10 mg ??? ondansetron (ZOFRAN) tablet 4 mg OR ondansetron (ZOFRAN) injection 4 mg OBJECTIVE: Temp: [36.7 ??C (98.1 ??F)-37 ??C (98.6 ??F)] Heart Rate: [63-68] Resp: [16-18] BP: (113-142)/(76-79) No intake or output data in the 24 hours ending 02/15/19 0548 Body mass index is 39.75 kg/m??. Exam: General: NAD, awake/alert CV: RRR assessed peripherally Resp: Breathing comfortably on RA LLE: Mepilex dressing c/d/i. Ice to knee Motor intact to EHL, FHL, TA. Sensation intact in S/S/SP/DP/T dist. Brisk capillary refill distally. DP pulse palpable. [facility] Lab Results Component Value Date NA 143 02/13/2019 K 3.5 02/13/2019 CL 106 02/13/2019 CO2 28 02/13/2019 BUN 6 (L) 02/13/2019 CREATININE 0.77 02/13/2019 GLUCOSE 109 02/13/2019 CALCIUM 8.7 02/13/2019 Lab Results Component Value Date WBC 6.7 02/13/2019 HGB 10.9 (L) 02/13/2019 HCT 33.8 (L) 02/13/2019 MCV 88.5 02/13/2019 PLATELET 241 02/13/2019 Lab Results Component Value Date INR 1.1 02/10/2019 Labs: Staph lugdunesis, further speciation and sensitivities pending. ASSESSMENT / PLAN: Sissy Eugene is a 53 y.o. female 5 Days Post-Op s/p L TKA polyswap for PJI. No acute events overnight, pain well-controlled. Intraoperative cultures with staphylococcus lugdunesis, reccs for ceftriaxone and OPAT placed but awaiting final sensitivities for finalization of recs. PICC area with irritation that has improved with dressing change. Plan for confirmation of abx from ID once have sensitivities and CM for VNA abx. Activity: WBAT LLE, ROMAT DVT prophylaxis: ASA 81mg BID for 30 days Closure: Resorbable sutures Dressing: Mepilex x 7 days Antibiotics: ceftriaxone 2g IV q24h X 6 weeks Consults: PT, ID- appreciate recs D/c: pending final ID plan Pia Bennett MD 02/15/2019 Future Appointments Date Time Provider Department Center 03/03/2019 10:00 AM Christine, Naina, DO [facility] 03/09/2019 1:30 PM [facility] DX ROOM 3 Xray [facility] 03/09/2019 2:30 PM Rod Valdez MD [facility] 03/16/2019 9:30 AM Renato Burton MD [facility] * Janene Hu RN - 02/14/2019 2:49 PM EDT OFFICE OF CARE MANAGEMENT/Carrier Loader/PROGRESS NOTE e-DH reviewed. Report received from Patient continues to require acute inpatient care for the treatment of Left Total Knee ArthroplastyPJI now s/p polyswap with Dr Valdez on 02/10/19 Receiving Ceftriaxone 2g IV q24hr x 6 weeks. Antibiotic time changed today to 4pm administration. [facility] completed teach with patient today. Patient has PICC Line PICC Line - Single Lumen 02/11/19 1702 basilic vein (medial side of arm), right 4 Fr Plan: is for patient to discharge tomorrow, Thursday, 02/15 and [facility] will deliver antibiotic scheduled for 3pm to patient's home. VN is scheduled to arrive at patient's home between 3 and 4 pm Thursday for administration and teaching reinforcement [facility] [employer] PHONE: [phone] FAX: [phone] Home Infusion Vendor: Patient requested referral to [place], [place] or Plan: CM will continue to follow for coordination of care and to facilitate discharge planning. Janene Hu RN CM Pager [phone] * Pia Bennett MD - 02/14/2019 5:43 AM EDT ORTHOPAEDIC SURGERY INPATIENT PROGRESS NOTE Patient Name: Sissy Eugene Age: 53 y.o. 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 Valdez Date of surgery: 02/10/2019 SUBJECTIVE / INTERVAL HISTORY: NAEON. AFVSS. Patient feeling well. Has been up walking during the days without issue. ID placed OPAT for ceftriaxone 2g IV q24hr X 6 weeks but this will be reviewed today. PICC team assessed and dressing changed. Pt notes much better with new dressing. Looking forward to [place] home today. Denies any increased left knee pain. Denies any cp, sob, n/v. FOCUSED REVIEW OF SYSTEMS: as above. Active Hospital Problems Diagnosis ? ? s/p left knee I&D, polyethylene exchange for acute PJI with Dr. Valdez 02/10/19 Resolved Hospital Problems No resolved problems to display. Active Non-Hospital Problems Diagnosis ??? S/P orthopedic surgery, follow-up exam ??? Hammer toe of left foot MEDICATIONS: ??? diphenhydrAMINE (BENADRYL) capsule 25 mg ??? cefTRIAXone (ROCEPHIN) 2 g vial attach to sodium chloride 0.9% 50 mL Mini- Bag Plus ??? ketorolac (TORADOL) injection ??? BUpivacaine-EPINEPHrine 0.25 %-1:200,000 injection ??? lisinopril (PRINIVIL;ZESTRIL) tablet 30 mg ??? sodium chloride 0.9 % flush 5 mL ??? sodium chloride 0.9 % flush 5-20 mL ??? lidocaine (XYLOCAINE) 10 mg/mL (1 %) injection 3 mg ??? polyethylene glycol (MIRALAX) packet 17 g ??? senna-docusate (PERICOLACE) 8.6-50 mg per tablet 2 tablet ??? bisacodyl (DULCOLAX) EC tablet 10 mg ??? bisacodyl (DULCOLAX) suppository 10 mg ??? acetaminophen (TYLENOL) tablet 1,000 mg ??? [COMPLETED] gabapentin (NEURONTIN) capsule 600 mg FOLLOWED BY gabapentin (NEURONTIN) capsule 300 mg ??? celecoxib (CeleBREX) capsule 200 mg ??? pantoprazole (PROTONIX) tablet 20 mg ??? aspirin EC tablet 81 mg ??? multivitamin with minerals (THERA-M) tablet 1 tablet ??? oxyCODONE (ROXICODONE) immediate release tablet 5-10 mg ??? ondansetron (ZOFRAN) tablet 4 mg OR ondansetron (ZOFRAN) injection 4 mg OBJECTIVE: Temp: [36.6 ??C (97.8 ??F)-37.6 ??C (99.7 ??F)] Resp: [16-20] BP: (109-135)/(76-84) No intake or output data in the 24 hours ending 02/14/19 0543 Body mass index is 39.75 kg/m??. Exam: General: NAD, awake/alert CV: RRR assessed peripherally Resp: Breathing comfortably on RA LLE: Mepilex dressing c/d/i. In cryocuff. Motor intact to EHL, FHL, TA. Sensation intact in S/S/SP/DP/T dist. Brisk capillary refill distally. DP pulse palpable, non palp PT palp. [facility] Lab Results Component Value Date NA 143 02/13/2019 K 3.5 02/13/2019 CL 106 02/13/2019 CO2 28 02/13/2019 BUN 6 (L) 02/13/2019 CREATININE 0.77 02/13/2019 GLUCOSE 109 02/13/2019 CALCIUM 8.7 02/13/2019 Lab Results Component Value Date WBC 6.7 02/13/2019 HGB 10.9 (L) 02/13/2019 HCT 33.8 (L) 02/13/2019 MCV 88.5 02/13/2019 PLATELET 241 02/13/2019 Lab Results Component Value Date INR 1.1 02/10/2019 Labs: Staph lugdunesis, further speciation and sensitivities pending. ASSESSMENT / PLAN: Sissy Eugene is a 53 y.o. female 4 Days Post-Op s/p L TKA polyswap for PJI. No acute events overnight, pain well-controlled. Intraoperative cultures with staphylococcus lugdunesis, final reccs for ceftriaxone. OPAT placed. PICC area with irritation that has improved with dress ing change. Plan for confirmation with VNA that abx are ready at home and likely d/c today. Activity: WBAT LLE, ROMAT DVT prophylaxis: ASA 81mg BID for 30 days Closure: Resorbable sutures Dressing: Mepilex x 7 days Antibiotics: ceftriaxone 2g IV q24h X 6 weeks Consults: PT, ID- appreciate recs D/c: today vs tomorrow pending OPAT and VNA orders Pia Bennett MD 02/14/2019 Future Appointments Date Time Provider Department Center 03/09/2019 1:30 PM [facility] DX ROOM 3 Xray [facility] 03/09/2019 2:30 PM Rod Valdez MD [facility] [address] [place] [address] * Renato Burton MD - 02/13/2019 3:24 PM EDT Infectious Diseases Attending Doing well, tolerable knee discomfort. Temp: [36.6 ??C (97.8 ??F)-36.8 ??C (98.2 ??F)] Heart Rate: -- Resp: [6-18] BP: (117-137)/(70-83) SpO2: [94 %-98 %] Heart Rate from SpO2: [67 bpm-77 bpm] PICC line in place, non-tender Knee swollen (appropriate post-op appearance), wound intact S. lugdunensis from multiple cultures. Although susceptibilities are not yet back, most strains are susceptible to ceftriaxone. I have placed OPAT orders, but we will review them tomorrow in light of final culture results. * Ricky Mathur RN - 02/13/2019 11:31 AM EDT Images from the original note were not included. Paged to replace PICC dressing with IV 3000 in hopes of stopping constant itch pt has complained about. Please page VAS with further concerns * Mai Angeles RN - 02/13/2019 8:59 AM EDT Called to bedside to evaluate old PIV site. IV was removed yesterday by patient's primary RN because it was no longer necessary. At the time of removal there were no s/s of phlebitis, infiltration, or skin irritation. The patient does have adhesive allergies, so it is possible the irritation developed after removal. Area on patient's forearm is pink and indurated. No blistering. Hot pack applied and primary RN told to notify team when they round. * Savi Blake MD - 02/13/2019 7:53 AM EDT ORTHOPAEDIC SURGERY INPATIENT PROGRESS NOTE Patient Name: Sissy Eugene Age: 53 y.o. 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 Valdez Date of surgery: 02/10/2019 SUBJECTIVE / INTERVAL HISTORY: NAEON. Cleared PT/OT yesterday. ID placed final reccs for ceftriaxone 2g IV q24hr X 6 weeks. Patient would like VNA orders. C/o itchiness around PICC line sight, PICC team due to come look at it today. Interested in [place] home today. Denies any increased left knee pain. Denies any cp, sob, n/v. FOCUSED REVIEW OF SYSTEMS: as above. Active Hospital Problems Diagnosis ? ? s/p left knee I&D, polyethylene exchange for acute PJI with Dr. Valdez 02/10/19 Resolved Hospital Problems No resolved problems to display. Active Non-Hospital Problems Diagnosis ??? S/P orthopedic surgery, follow-up exam ??? Hammer toe of left foot MEDICATIONS: ??? diphenhydrAMINE (BENADRYL) capsule 25 mg ??? cefTRIAXone (ROCEPHIN) 2 g vial attach to sodium chloride 0.9% 50 mL Mini- Bag Plus ??? ketorolac (TORADOL) injection ??? BUpivacaine-EPINEPHrine 0.25 %-1:200,000 injection ??? lisinopril (PRINIVIL;ZESTRIL) tablet 30 mg ??? sodium chloride 0.9 % flush 5 mL ??? sodium chloride 0.9 % flush 5-20 mL ??? lidocaine (XYLOCAINE) 10 mg/mL (1 %) injection 3 mg ??? polyethylene glycol (MIRALAX) packet 17 g ??? senna-docusate (PERICOLACE) 8.6-50 mg per tablet 2 tablet ??? bisacodyl (DULCOLAX) EC tablet 10 mg ??? bisacodyl (DULCOLAX) suppository 10 mg ??? acetaminophen (TYLENOL) tablet 1,000 mg ??? [COMPLETED] gabapentin (NEURONTIN) capsule 600 mg FOLLOWED BY gabapentin (NEURONTIN) capsule 300 mg ??? celecoxib (CeleBREX) capsule 200 mg ??? pantoprazole (PROTONIX) tablet 20 mg ??? aspirin EC tablet 81 mg ??? multivitamin with minerals (THERA-M) tablet 1 tablet ??? oxyCODONE (ROXICODONE) immediate release tablet 5-10 mg ??? ondansetron (ZOFRAN) tablet 4 mg OR ondansetron (ZOFRAN) injection 4 mg OBJECTIVE: Temp: [36.6 ??C (97.8 ??F)-36.8 ??C (98.2 ??F)] Resp: [6-18] BP: (117-137)/(70-86) Intake/Output Summary (Last 24 hours) at 02/13/2019 0753 Last data filed at 02/12/2019 1600 Gross per 24 hour Intake 360 ml Output -- Net 360 ml Body mass index is 39.75 kg/m??. Exam: General: NAD, awake/alert CV: RRR assessed peripherally Resp: Breathing comfortably on RA LLE: Mepilex dressing c/d/i. In cryocuff. Motor intact to EHL, FHL, TA. Sensation intact in S/S/SP/DP/T dist. Brisk capillary refill distally. DP pulse palpable, non palp PT palp. [facility] Lab Results Component Value Date NA 143 02/13/2019 K 3.5 02/13/2019 CL 106 02/13/2019 CO2 28 02/13/2019 BUN 6 (L) 02/13/2019 CREATININE 0.77 02/13/2019 GLUCOSE 109 02/13/2019 CALCIUM 8.7 02/13/2019 Lab Results Component Value Date WBC 6.7 02/13/2019 HGB 10.9 (L) 02/13/2019 HCT 33.8 (L) 02/13/2019 MCV 88.5 02/13/2019 PLATELET 241 02/13/2019 Lab Results Component Value Date INR 1.1 02/10/2019 Labs: Staph species, further speciation and sensitivities pending. ASSESSMENT / PLAN: Sissy Eugene is a 53 y.o. female 3 Days Post-Op s/p L TKA polyswap for PJI. No acute events overnight, pain well-controlled. Intraoperative cultures with staphylococcus species, final reccs for ceftriaxone. Need OPAT and VNA orders placed today and then patient is ready for DC. Also please have PICC come around and take a look at the sight prior to DC. Activity: WBAT LLE, ROMAT DVT prophylaxis: ASA 81mg BID for 30 days Closure: Resorbable sutures Dressing: Mepilex x 7 days Antibiotics: ceftriaxone 2g IV q24h X 6 weeks Consults: PT, ID- appreciate recs D/c: today vs tomorrow pending OPAT and VNA orders Savi Blake MD 02/13/2019 Future Appointments Date Time Provider Department Center 03/09/2019 1:30 PM [facility] DX ROOM 3 [facility] 03/09/2019 2:30 PM Rod Valdez MD [facility] * Renato Burton MD - 02/12/2019 5:22 PM EDT Infectious Disease Attending Ms. Eugene has left knee discomfort, two days after surgery. Otherwise well. Afebrile. Left knee appearance appropriate for two days post-op. Cultures growing S. lugdunensis. Suggest: No need for additional doses of vancomycin. Susceptibilities are pending, but most strainsof S. lugdunensis are susceptible to ceftriaxone. In an attempt to expedite discharge, I suggest switching now to ceftriaxone (2 g IV once daily), for planned OPAT, with a tentative duration of six weeks. It may be possible to transition to an intensive oral regimen after a few weeks, followed by along course of suppressive therapy. * Alexy Mckay MD - 02/12/2019 6:12 AM EDT ORTHOPAEDIC SURGERY INPATIENT PROGRESS NOTE Patient Name: Sissy Eugene Age: 53 y.o. 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 Valdez Date of surgery: 02/10/2019 SUBJECTIVE / INTERVAL HISTORY: No acute events overnight, afebrile. Pain well-controlled. Intraoperative cultures with staphylococcus species, further speciation and sensitivities pending. Urinating on own volition, tolerating PO intake, passing flatus. FOCUSED REVIEW OF SYSTEMS: as above. Active Hospital Problems Diagnosis ? ? s/p left knee I&D, polyethylene exchange for acute PJI with Dr. Valdez 02/10/19 Resolved Hospital Problems No resolved problems to display. Active Non-Hospital Problems Diagnosis ??? S/P orthopedic surgery, follow-up exam ??? Hammer toe of left foot MEDICATIONS: ??? ketorolac (TORADOL) injection ??? BUpivacaine-EPINEPHrine 0.25 %-1:200,000 injection ??? lisinopril (PRINIVIL;ZESTRIL) tablet 30 mg ??? sodium chloride 0.9 % flush 5 mL ??? sodium chloride 0.9 % flush 5-20 mL ??? lidocaine (XYLOCAINE) 10 mg/mL (1 %) injection 3 mg ??? polyethylene glycol (MIRALAX) packet 17 g ??? senna-docusate (PERICOLACE) 8.6-50 mg per tablet 2 tablet ??? bisacodyl (DULCOLAX) EC tablet 10 mg ??? bisacodyl (DULCOLAX) suppository 10 mg ??? acetaminophen (TYLENOL) tablet 1,000 mg ??? [COMPLETED] gabapentin (NEURONTIN) capsule 600 mg FOLLOWED BY gabapentin (NEURONTIN) capsule 300 mg ??? celecoxib (CeleBREX) capsule 200 mg ??? pantoprazole (PROTONIX) tablet 20 mg ??? ceFAZolin (ANCEF) 2g in dextrose 5% 100 mL ??? aspirin EC tablet 81 mg ??? multivitamin with minerals (THERA-M) tablet 1 tablet ??? oxyCODONE (ROXICODONE) immediate release tablet 5-10 mg ??? ondansetron (ZOFRAN) tablet 4 mg OR ondansetron (ZOFRAN) injection 4 mg OBJECTIVE: Temp: [37.3 ??C (99.1 ??F)-37.9 ??C (100.2 ??F)] Heart Rate: [71-76] Resp: [16-20] BP: (112-123)/(68-76) No intake or output data in the 24 hours ending 02/12/19 0612 Body mass index is 39.75 kg/m??. Exam: General: NAD, awake/alert CV: RRR assessed peripherally Resp: Breathing comfortably on RA LLE: Mepilex dressing c/d/i. In cryocuff. Motor intact to EHL, FHL, TA. Sensation intact in S/S/SP/DP/T dist. Brisk capillary refill distally. DP pulse palpable, non palp PT palp. WWP Lab Results Component Value Date NA 141 02/12/2019 K 3.8 02/12/2019 CL 105 02/12/2019 CO2 26 02/12/2019 BUN 9 02/12/2019 CREATININE 0.84 02/12/2019 GLUCOSE 102 02/12/2019 CALCIUM 8.9 02/12/2019 Lab Results Component Value Date WBC 9.7 (H) 02/12/2019 HGB 11.7 02/12/2019 HCT 36.0 02/12/2019 MCV 90.2 02/12/2019 PLATELET 233 02/12/2019 Lab Results Component Value Date INR 1.1 02/10/2019 Labs: Staph species, further speciation and sensitivities pending. ASSESSMENT / PLAN: Sissy Eugene is a 53 y.o. female 2 Days Post-Op s/p L TKA polyswap for PJI. No acute events overnight, pain well-controlled. Intraoperative cultures with staphylococcus species, further speciation and sensitivities pending. Patient will work with PT today and move towards d/shubham OPAT is finalized. Activity: WBAT LLE, ROMAT DVT prophylaxis: ASA 81mg BID for 30 days Closure: Resorbable sutures Dressing: Mepilex x 7 days Antibiotics: Ancef per ID Consults: PT, ID- appreciate recs D/c: Per ID, PT ALEXY MCKAY MD 02/12/2019 Future Appointments Date Time Provider Department Center 03/09/2019 1:30 PM [facility] DX ROOM 3 [facility]ray [facility] 03/09/2019 2:30 PM Rod Valdez MD [facility] * Renato Burton MD - 02/11/2019 2:46 PM EDT Infectious Disease Progress Note Chart reviewed, patient seen and examined. Doing well post-operatively. No fevers or chills. Tolerating antibiotics. No nausea, vomiting or diarrhea VS- afebrile and stable. Focused exam LLE with dressing over surgical site Labs- reviewed- wbc of 9.1 Micro- reviewed. Blood cultures with no growth Operative cultures 02/10 -left tibial tray- moderate Staphylococcus species -Left posterior synovium- few Staphylococcal species -Left knee fluid: rare Staphylococcus species Assessment: 53 y.o. female with a history of left TKA on 09/20 with recent arthroscopic surgery on 01/18 followed by some local irrigation and a fluid collection. She underwent aspirate on 02/09 and hours later developed acute knee pain and inability to ambulate. Knee aspirate with 27,738wbc 94% pmns and was taken to OR on 02/10/19 for I&D and polyswap with well fixed components. Based on history, sounds likean acute infection and cultures with Staphylococcus species. She is on cefazolin and got a one timedose of vancomycin 3gIV while awaiting for culture finalization. Anticipate treatment for PJI and will likely need IV antibiotics on discharge. Based on culture finalization, will make additional recommendations on duration of IV therapy and oral therapy which may need to extend out for several weeks. Recommendations -Continue cefazolin 2g IV q8 hours -One time dose of vancomycin 3g IV -Follow cultures -Further recommendations based on culture results -Anticipate OPAT on discharge, ok for PICC line Patient seen and discussed with Dr. Burton. Recommendations called to primary team. ID will follow, please call with questions Naina King DO ID Fellow [id number] ID Attending I interviewed and examined the patient with Dr. King. I have reviewed Dr. King's note from today and I agree with the details as written. My physical examination confirms her findings. Of note today: Ms. Eugene is doing well. Cultures are growing staphylococcus species. Dr. King's assessment and plan were formulated after discussion with me at the time of the visit and I agree with them as documented. We suggest that vancomycin be added to the patient's regimen, in the event that the organism is resistant to cefazolin. A single loading dose should get us through until tomorrow, when we will have more information about the organism. * Nicholas Nunez MD - 02/11/2019 8:45 AM EDT Regional Anesthesia Progress Note Date of Encounter: 02/11/2019 Responsible Attending: Erica Quiros Staff / Associate Provider: NICHOLAS NUNEZ MD ID: Patient is POD# 1 s/p knee arthroplasty for which the patient received a left adductor canal nerve block for post-operative pain control. Subjective: Today the patient has good pain control and at present states pain is 5 out of 10. Patient has been able to tolerate PO analgesics and an oral diet without nausea or vomiting. Patient is without any complaints this morning. Objective: Temp: [36.3 ??C (97.3 ??F)-37.2 ??C (99 ??F)] Heart Rate: [59-78] Resp: [12-20] BP: (100-118)/(57-87) SpO2: [91 %-99 %] Heart Rate from SpO2: [54 bpm-78 bpm] Gen: Patient resting comfortably No bruising, erythema, swelling or discharge at insertion site. Sensory: Sensation is intact to cold over anterior thigh Motor: Patient is able to perform straight leg raise No evidence of local anesthetic toxicity Coags: No results found for: INR, PT, PTT Meds: Medication list reviewed Assessment: Peripheral nerve block for post-operative pain control, currently with good pain control. Block appears to be resolving appropriately. Plan: ?? Continue current management per primary service. ?? Patient was instructed to contact Regional Anesthesia Team ([phone]) for any unresolved sensory or motor deficits. ?? Thank you for the opportunity to have participated in the care of this patient. NICHOLAS NUNEZ MD Regional Team pager [phone] Associated attestation - Zeb Maldonado MD - 02/13/2019 7:59 PM EDT I have seen and examined the patient, providing nugent components as outlined below. I have reviewed the resident???s above note; * Hossein Bangura - 02/11/2019 5:51 AM EDT ORTHOPAEDIC SURGERY INPATIENT PROGRESS NOTE Patient Name: Sissy Eugene Age: 53 y.o. 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 Valdez Date of surgery: 02/10/2019 SUBJECTIVE / INTERVAL HISTORY: Doing well post operatively. Pain improved in the L knee but ROM limited at this point. Denies CP, SOB, nausea, vomiting, weakness. Pain well controlled. Intraop cultures with GPCs in clusters. FOCUSED REVIEW OF SYSTEMS: as above. Active Hospital Problems Diagnosis ? ? s/p left knee I&D, polyethylene exchange for acute PJI with Dr. Valdez 02/10/19 Resolved Hospital Problems No resolved problems to display. Active Non-Hospital Problems Diagnosis ??? S/P orthopedic surgery, follow-up exam ??? Hammer toe of left foot MEDICATIONS: ??? ketorolac (TORADOL) injection ??? BUpivacaine-EPINEPHrine 0.25 %-1:200,000 injection ??? lisinopril (PRINIVIL;ZESTRIL) tablet 30 mg ??? sodium chloride 0.9 % flush 5 mL ??? sodium chloride 0.9 % flush 5-20 mL ??? lidocaine (XYLOCAINE) 10 mg/mL (1 %) injection 3 mg ??? polyethylene glycol (MIRALAX) packet 17 g ??? senna-docusate (PERICOLACE) 8.6-50 mg per tablet 2 tablet ??? bisacodyl (DULCOLAX) EC tablet 10 mg ??? bisacodyl (DULCOLAX) suppository 10 mg ??? acetaminophen (TYLENOL) tablet 1,000 mg ??? gabapentin (NEURONTIN) capsule 600 mg FOLLOWED BY [START ON 02/12/2019] gabapentin (NEURONTIN) capsule 300 mg ??? ketorolac (TORADOL) injection 15 mg ??? celecoxib (CeleBREX) capsule 200 mg ??? pantoprazole (PROTONIX) tablet 20 mg ??? sodium chloride 0.9% infusion ??? ceFAZolin (ANCEF) 2g in dextrose 5% 100 mL ??? aspirin EC tablet 81 mg ??? multivitamin with minerals (THERA-M) tablet 1 tablet ??? oxyCODONE (ROXICODONE) immediate release tablet 5-10 mg ??? ondansetron (ZOFRAN) tablet 4 mg OR ondansetron (ZOFRAN) injection 4 mg ??? sodium chloride 0.9% 1,000 mL (02/10/19 1857) OBJECTIVE: Temp: [36.3 ??C (97.3 ??F)-37.2 ??C (99 ??F)] Heart Rate: [59-78] Resp: [12-20] BP: (100-122)/(57-87) Intake/Output Summary (Last 24 hours) at 02/11/2019 0555 Last data filed at 02/11/2019 0432 Gross per 24 hour Intake 2440 ml Output 850 ml Net 1590 ml Body mass index is 39.75 kg/m??. Exam: General: NAD, awake/alert CV: RRR assessed peripherally Resp: Breathing comfortably on RA LLE: Mepilex dressing c/d/i. In cryocuff. Motor intact to EHL, FHL, TA. Sensation intact in S/S/SP/DP/T dist. Brisk capillary refill distally. DP pulse palpable, non palp PT palp. WWP Lab Results Component Value Date NA 140 02/11/2019 K 3.9 02/11/2019 CL 104 02/11/2019 CO2 25 02/11/2019 BUN 13 02/11/2019 CREATININE 0.80 02/11/2019 GLUCOSE 121 02/11/2019 CALCIUM 8.8 02/11/2019 Lab Results Component Value Date WBC 9.1 02/11/2019 HGB 12.2 02/11/2019 HCT 38.1 02/11/2019 MCV 90.1 02/11/2019 PLATELET 229 02/11/2019 Lab Results Component Value Date INR 1.1 02/10/2019 ASSESSMENT / PLAN: Sissy Eugene is a 53 y.o. female 1 Day Post-Op s/p L TKA polyswap for PJI. Progressing well with stable vitals. Pain improved compared to pre-op state. ID recommending ancef until sensitivities finalized. Patient will work with PT today and move towards d/c once OPAT is finalized. Activity: WBAT LLE, ROMAT DVT prophylaxis: ASA 81mg BID for 30 days Closure: Resorbable sutures Dressing: Mepilex x 7 days Antibiotics: Ancef per ID Consults: PT, ID- appreciate recs D/c: Per ID, PT HOSSEIN BANGURA MD 02/11/2019 Future Appointments Date Time Provider Department Center 03/09/2019 1:30 PM [facility] DX ROOM 3 [facility] 03/09/2019 2:30 PM Rod Valdez MD [facility] Associated attestation - Rod Valdez MD - 02/11/2019 4:20 PM EDT I have seen the patient and reviewed the attached progress note and I agree with the details as written. The assessment and plan were formulated in discussion with me and I agree with them as documented. Any additional information findings are noted below. Doing well POD#1. GPCs in clusters seen on gram stain from OR. Appreciate ID assistance. Continue abx management and plan for PICC line. Rod Valdez MD, MS 02/11/2019 * Jeyson Chase MD - 02/10/2019 4:45 PM EDT ORTHOPAEDIC SURGERY INPATIENT PROGRESS NOTE Patient Name: Sissy Eugene Age: 53 y.o. 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 Valdez Date of surgery: 02/10/2019 SUBJECTIVE / INTERVAL HISTORY: Doing well post operatively. Pain improved in the L knee with improved ROM. Denies CP, SOB, nausea,vomiting, weakness. Pain well controlled. Family at bedside. FOCUSED REVIEW OF SYSTEMS: as above. Active Hospital Problems Diagnosis ? ? s/p left knee I&D, polyethylene exchange for acute PJI with Dr. Valdez 02/10/19 Resolved Hospital Problems No resolved problems to display. Active Non-Hospital Problems Diagnosis ??? S/P orthopedic surgery, follow-up exam ??? Hammer toe of left foot MEDICATIONS: ??? ketorolac (TORADOL) injection ??? BUpivacaine-EPINEPHrine 0.25 %-1:200,000 injection ??? [START ON 02/11/2019] lisinopril (PRINIVIL;ZESTRIL) tablet 30 mg ??? sodium chloride 0.9 % flush 5 mL ??? sodium chloride 0.9 % flush 5-20 mL ??? lidocaine (XYLOCAINE) 10 mg/mL (1 %) injection 3 mg ??? polyethylene glycol (MIRALAX) packet 17 g ??? senna-docusate (PERICOLACE) 8.6-50 mg per tablet 2 tablet ??? bisacodyl (DULCOLAX) EC tablet 10 mg ??? bisacodyl (DULCOLAX) suppository 10 mg ??? acetaminophen (TYLENOL) tablet 1,000 mg ??? gabapentin (NEURONTIN) capsule 600 mg FOLLOWED BY [START ON 02/12/2019] gabapentin (NEURONTIN) capsule 300 mg ??? ketorolac (TORADOL) injection 15 mg ??? [START ON 02/11/2019] celecoxib (CeleBREX) capsule 200 mg ??? pantoprazole (PROTONIX) tablet 20 mg ??? sodium chloride 0.9% infusion ??? ceFAZolin (ANCEF) 2g in dextrose 5% 100 mL ??? aspirin EC tablet 81 mg ??? multivitamin with minerals (THERA-M) tablet 1 tablet ??? oxyCODONE (ROXICODONE) immediate release tablet 5-10 mg ??? ondansetron (ZOFRAN) tablet 4 mg OR ondansetron (ZOFRAN) injection 4 mg ??? sodium chloride 0.9% 1,000 mL (02/10/19 1427) OBJECTIVE: Temp: [36.3 ??C (97.3 ??F)-37.2 ??C (99 ??F)] Heart Rate: [59-78] Resp: [12-20] BP: (102-122)/(57-87) Intake/Output Summary (Last 24 hours) at 02/10/2019 1702 Last data filed at 02/10/2019 1342 Gross per 24 hour Intake 1000 ml Output 100 ml Net 900 ml Body mass index is 39.75 kg/m??. Exam: General: NAD, awake/alert CV: RRR assessed peripherally Resp: Breathing comfortably on RA LLE: Mepilex dressing c/d/i. In cryocuff. Motor intact to EHL, FHL, TA. Sensation intact in foot/calf but still diminished from pre-op block over medial leg and dorsal foot. Brisk capillary refill distally. DP and PT pulses palpable. Lab Results Component Value Date NA 139 02/10/2019 K 4.3 02/10/2019 CL 102 02/10/2019 CO2 24 02/10/2019 BUN 17 02/10/2019 CREATININE 1.06 02/10/2019 GLUCOSE 162 02/10/2019 CALCIUM 9.4 02/10/2019 Lab Results Component Value Date WBC 12.7 (H) 02/10/2019 HGB 13.3 02/10/2019 HCT 40.0 02/10/2019 MCV 86.6 02/10/2019 PLATELET 268 02/10/2019 Lab Results Component Value Date INR 1.1 02/10/2019 ASSESSMENT / PLAN: Sissy Eugene is a 53 y.o. female Day of Surgery s/p L TKA polyswap for PJI. Progressing well with stable vitals. Pain improved compared to pre-op state. ROM still limited by pain but significantly improved from pre- op. ID has been engaged and recommending Ancef. Will continueto follow intra-op cultures. Currently growing GPC in clusters. Has voided post operatively. Activity: WBAT LLE, ROMAT DVT prophylaxis: ASA 81mg BID for 30 days Closure: Resorbable sutures Dressing: Mepilex x 7 days Antibiotics: Ancef per ID Jeyson Chase MD 02/10/2019 Future Appointments Date Time Provider Department Center 03/09/2019 1:30 PM [facility] DX ROOM 3 [facility]ray [facility] 03/09/2019 2:30 PM Rod Valdez MD [facility] * Liliana Martinez RN - 02/10/2019 3:47 PM EDT Patient admitted to at approximately 15:45. NS running at 100ml/hr into right AC. See doc flow for VS. Patient rating pain 4/10. Dressing to left knee c/d/i, cryocuff on. Patient states her last BM was 02/09. Patient denies any numbness or tingling at this time. See doc flow for full head to toe. Will continue to monitor. Liliana Martinez, ODIN * Lillian Zimmerman RN - 02/10/2019 2:38 PM EDT 1350 - pt arrives to PACU via bed, monitors on with alarms. Awake and alert, denies pain and nausea. Knee dressing C/D/I, able to bed ankles already. 1430 - Kassandra PO without issues. 1435 - ID at BS. 1445 - to BS 1520 - Report called to 3 Liliana Novak. RN documented in this encounter H&P Notes * Ricky Lozoya MD - 02/10/2019 7:47 AM EDT 24-HOUR UPDATE Sissy Eugene's history and physical exam have been reviewed and completed. There has been no interval change from that of the pre-operative history and physical exam done within the last 30 days. Proceed with I&D, polyswap of left TKA. Ricky Lozoya MD PGY-2 P. [phone] 02/10/19 7:47 AM * Ricky Lozoya MD - 02/10/2019 6:54 AM EDT Images from the original note were not included. Orthopaedic Surgery H&P Attending: Dr Hussain Eugene is a 53 y.o. female who presents to see us in consultation today at the request Marcos Gutierrez MD. Chief Complaint: Left knee pain History of Present Illness: Sissy Eugene is a 53 y.o. female transferred from [facility] who is s/p Left TKA by Dr Barreto at the [facility] in 09/07/2017. She reports that she did not do well with respect to stiffness and patellar pain and so Dr Barreto performed an arthroscopic debridement of fibrotic material/adhesions around the patella on 01/18/19. 5 days post op, she began noticing a fluctuant bump over the healed medial portal site. She returned to the [facility] on02/09/19 for a post-op visit, and Dr Barreto aspirated approximately 20 cc sanguinous appearing fluid from the knee, which he reports that he discarded without sending for analysis because it lookedlike blood. She left clinic and continued to ambulate as normal until 2100, until she developed the acute onset of excruciating pain. She presented to the [place] ED afterwards. WBC of 13.4, but was reportedly afebrile, rr 18, hr 70, bp 123/77, ESR 6 (NL < 30), CRP 8 (NL < 10). Repeat aspirate of the knee with: 4500 WBC, 94% PMN, negative gram stain. ?? Transferred to [facility] for appropriate care. ?? Only complaint at this time is knee pain. Denies F/C, N/V, CP/SOB. Implant: Chevy Persona Knee - Size G tibia - 11 mm PS poly - Size 11 narrow PS femur - 29 mm patella, 8 mm thick Past Medical History: Patient Active Problem List Diagnosis Code ??? Hammer toe of left foot M20.42 ??? S/P orthopedic surgery, follow-up exam Z09 Past Surgical History: Past Surgical History: Procedure Laterality Date ??? PRO OSTEOTOMY METATARSAL (NOT 1ST) Left 10/01/2015 OSTEOTOMY, METATARSAL, OTHER THAN FIRST, EACH performed by Stanley Koo MD at [facility] ??? PRO XFER SINGLE SUPERFICI LOW LEG TENDON Left 10/01/2015 TENDON TRANSFER, ANKLE, SUPERFICIAL performed by Stanley Koo MD at [facility] Allergies Allergen Reactions ??? Adhesive Bandage Rash ??? Codeine Nausea Only No current facility-administered medications on file prior to encounter. Current Outpatient Medications on File Prior to Encounter Medication Sig Dispense Refill ??? lisinopril (PRINIVIL;ZESTRIL) 30 mg Tablet Take 30 mg by mouth daily. 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 This area had a bandage overlying it with surrounding prep material. The knee is very painful to any range of motion There is a knee effusion Sensation intact to light touch in Saphenous/Sural/LFC/Femoral/MP/LP/T/DP/SP distributions Motor intact to hip flexion/extension, knee flexion/extension, ankle flexion/extension, EHL/FHL/TA Brisk capillary refill distally 2+ DP/PT pulses Labs: Last 3 wbc, hgb, hct plt Recent Labs 02/10/19 0540 WBC 12.7* HGB 13.3 HCT 40.0 PLATELET 268 Last 3 Lytes Recent Labs 02/10/19 0540 NA 139 K 4.3 CL 102 CO2 24 BUN 17 CREATININE 1.06 Last CRP, SEDRATE Recent Labs 02/10/19 0540 CRP 18.2* SEDRATE 11 Imaging: XR of the left knee shows well-placed TKA without evidence of complication. There is a knee effusion. Procedures: (Joint aspiration) After a discussion pertaining to the risks and benefits of joint aspiration, the patient agreed to proceed. The left knee was prepped and draped in sterile fashion. A superolateral approach to the knee was used to insert an 20 gauge needle. Approximately 30 cc of turbid, serosanguinous appearing fluid was aspirated and sent for crystal exam, cell count, gram stain, and aerobic/anaerobic cultures. The area was dressed with gauze and hemostasis was achieved. The patient tolerated the procedure well. Assessment/Plan: 53 y.o. female who presents with acute onset of left knee pain with an outside aspirate of the left knee suggestive of an acute prosthetic joint infection. Knee aspirated in the ED, disposition pending aspirate results. - Activity- as tolerated - DVT prophylaxis- hold - Antibiotics: hold - Diet - npo - Imaging needed- none - Discuss with Dr. Nixon I have contacted the referring team and discussed our evaluation and recommendations as listed above. The orthopaedic service will continue to follow this patient. Thank you for the opportunity to assist in their evaluation and treatment. Please page Orthopaedic consults [phone]) with any questions or concerns. ?? Ricky Lozoya MD P. [phone] 02/10/19 6:54 AM No future appointments. Associated attestation - Rod Valdez MD - 02/10/2019 10:29 AM EDT I have seen the patient and reviewed the attached progress note and I agree with the details as written. The assessment and plan were formulated in discussion with me and I agree with them as documented. Any additional information findings are noted below. 53 y F with chronic pain and stiffness after L TKA. Recent arthroscopic lysis of adhesions. Inflammatory markers yesterday were normal with mildly elevated intra-articular cell count and differential. Repeat markers at [facility] were elevated with CRP of 18 and ESR of 11. Repeat cell count of 27,738 (94% PMNs). Now consistent with acute PJI. Risks and benefits of I&D/polyswap vs 2 stage revision were discussed with patient. Given acutenature of pain and less than 24 hours of abnormal labs, I think proceeding for I&D/polyswap hasgood chance of infection eradication. Discussed with patient that 6-8 weeks of IV abx and likely 6 months of oral abx anticipated. Discussed up to 40% chance of recurrent infection and 2 stage revision. Plan to proceed to OR today for I&D and polyswap. If components found to be loose then explant and spacer. Rod Valdez MD, MS 02/10/2019 documented in this encounter Procedure Notes * Domitila Ward RN - 02/11/2019 4:10 PM EDTAssociated Order(s): PLACE PICC LINE: CONTACT VASCULAR ACCESS PICC/Midline Insertion Procedure Note Indications: Anti-infective and Access This insertion was not to replace a malfunctioning catheter. This insertion was not due to a suspected line-associated infection. Location of Procedure: X-Ray Room 11 Risks and Benefits: The risks and benefits of this procedure were reviewed and informed consent was obtained obtained. Time Out: Prior to the start of the procedure, the patient's identity, intended procedure, site/side, correctpatient positioning and presence of the site suzi was confirmed as applicable. The medical history and chart were reviewed to rule out potential contraindications to the planned procedure. 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 Catheter type: PICC Lot number: [id number] Procedure Technique: Skin was prepped with chlorhexidine. Skin preparation agent was completely dry at the time of first skin puncture. The following barrier precaution methods were used:large sterile drape, maske/eye shield, large sterile gown, sterile gloves and cap. 2 ml of 1% Lidocaine was used for skin wheal. Ultrasound was used for guidance. Radiographic contrast agent was not injected for vein identification. Procedure Details: Order received for catheter placement. A 4 Fr. single lumen Bard Power catheter was placed into theright basilic vein over a 0.018 inch guidewire using modified seldinger technique and fluoroscopy. Arm circumference was 37 cm at 2 cm above the insertion site. Final catheter length (with trimming): 42 cm Internal: 42 cm External: 0 cm Tip in SVC per DR GIBSON. The line was not placed over a guidewire. Post Procedure: Diagnosis: INFECTED LEFT TKA Blood return noted on aspiration of line after placement confirmed. 5 mls of normal saline infused free flowing to gravity via PICC after insertion. Sterile dressing applied: Biopatch and Sorbaview. Findings: The patient did tolerate the procedure well. No Complications. Procedure Comments: DOMITILA WARD RN 02/11/2019 documented in this encounter ED Notes * Lizett Marte RN - 02/10/2019 10:10 AM EDT Report given to Margarita from same day. * Catrina Crowe NRP - 02/10/2019 5:59 AM EDT Ortho aspirated pt's L knee. * Eze Johnson - 02/10/2019 5:27 AM EDT ED Resident Note Sissy Eugene is an 53 y.o. female who presents to the ED with: Chief Complaint Patient presents with ??? Hospital Transfer ??? Knee Pain concern for periprosthetic knee infection I saw this patient on 02/10/2019. History is from patient. HPI Sissy Eugene is a 53 y.o. female with history of HTN, s/p lt TKA roughly 1 year ago and left knee arthroscopy approximately 3 weeks ago at [place] who presents to the Emergency Department with worsening left knee pain and swelling. Patient reports worsening pain over the past several weeks with associated swelling. She was seen at the ED at [facility] and underwent arthrocentesis which showed 45, 000 WBC with 94% PMNs, negative gram stain. CBC showed WBC = 13.4. Patient subsequently transferred for appropriate care. Patient reports chills overnight and stream limitation in rangeof motion of the left knee due to extreme pain. No redness, fevers, abdominal pain, nausea, vomiting, dysuria, hematuria, chest pain, shortness of breath. PMH: No past medical history on file. Review of Systems: Review of Systems 10 point review of systems negative other than stated in the HPI. Physical Exam: Temp: [37.1 ??C (98.8 ??F)] Heart Rate: [78] Resp: [16] BP: (103-120)/(62-70) SpO2: [95 %-96 %] Heart Rate from SpO2: [66 bpm-82 bpm] General: AAOx4, in NAD HEENT: normocephalic/atraumatic, EOMI, PERRL, MMM. Oropharynx clear, pink, moist without erythema/exudates. Neck: supple, full range of motion Cardiovascular: normal rate, regular rhythm, S1/2, no murmurs, rubs, gallops. peripheral pulses intact bilaterally. no LE edema Pulmonary: LCTAB Abdomen: soft, nondistended, no TTP, no rebound/guarding Skin: no rashes, no bruising, no lesions MSK: Mild swelling and warmth of the left knee. Significant decrease in range of motion secondary to pain with movement of the left knee. Neuro: CN II-XII grossly intact bilaterally. Sensation intact to the lower extremities bilaterally.Strength in left lower extremity diminished secondary to extreme pain with movement. Psych: normal mood and thought pattern. ED Course: - Patient seen under the supervision of the attending physician. - Medications, allergies, and past medical history reviewed. Recent Results (from the past 24 hour(s)) CRP, acute inflammation Result Value Ref Range CRP 18.2 (H) <=4.9 mg/L Sedimentation rate Result Value Ref Range Sed Rate 11 0 - 20 mm/hr Basic Metabolic Panel (non-fasting) Result Value Ref Range Glucose Lvl 162 65 - 199 mg/dL BUN 17 8 - 18 mg/dL Creatinine 1.06 0.70 - 1.20 mg/dL Sodium 139 135 - 145 mmol/L Potassium 4.3 3.5 - 5.0 mmol/L Chloride 102 98 - 107 mmol/L CO2 24 22 - 31 mmol/L Anion Gap 13 5 - 15 mmol/L Calcium 9.4 8.5 - 10.5 mg/dL eGFR 59 (L) >=60 mL/min/1.73 m?? eGFR 68 >=60 mL/min/1.73 m?? Prothrombin Time Result Value Ref Range PT 12.6 (H) 9.4 - 12.5 sec INR 1.1 APTT Result Value Ref Range PTT 24 (L) 25 - 37 sec Hemogram Result Value Ref Range WBC 12.7 (H) 4.0 - 9.5 x10(3)/mcL RBC 4.62 4.00 - 5.21 x10(6)/mcL Hemoglobin 13.3 11.7 - 15.5 gm/dL Hematocrit 40.0 35.7 - 45.8 % MCV 86.6 82.6 - 94.4 fL MCH 28.8 27.1 - 32.0 pg MCHC 33.3 31.7 - 35.0 gm/dL Platelets 268 145 - 357 x10(3)/mcL RDWSD 41.4 37.0 - 46.0 fL RDWCV 13.2 11.5 - 14.1 % MPV 9.6 7.6 - 12.9 fL nRBC % Auto 0.0 % nRBC Abs Auto 0.000 0.000 - 0.000 x10(3)/mcL Differential, Automated Result Value Ref Range Neutrophils % 81.1 % Neutr Abs (ANC) 10.29 (H) 1.70 - 6.10 x10(3)/mcL Lymphocytes % 9.5 % Lymphocytes Abs 1.2 0.9 - 3.2 x10(3)/mcL Monocytes % 8.7 % Monocyte Abs 1.1 (H) 0.3 - 0.9 x10(3)/mcL Eosinophils % 0.0 % Eosinophils Abs 0.0 0.0 - 0.4 x10(3)/mcL Basophils % 0.4 % Basophils Abs 0.0 0.0 - 0.1 x10(3)/mcL Immature Gran % 0.30 % Lorrie Gran Abs 0.04 0.00 - 0.04 x10(3)/mcL Gold Tube HOLD Result Value Ref Range Gold Hold Sample in lab. Cell Count Body Fluid Knee, Left Result Value Ref Range Spec Type BF Knee, Left Color BF Dalhart Appearance BF Cloudy WBC BF Ct 27,738 /mcl Polymorph % 94 % Mononuc % 6 % Polymorph BF ABS 25,939 /mcl Mononuc ABS 1,799 /mcl Crystal Exam Body Fluid Knee, Left Result Value Ref Range Crystal BF Type Knee fluid Lt Crystal BF None Seen Joint Culture Result Value Ref Range Gram Stain Cytocentrifuge Gram Stain performed Many Neutrophils seen No microorganisms seen. Consults: -Orthopedic surgery Medications given: Medications - No data to display Assessment and Plan: 53 y.o. female with history of left total knee arthroplasty, status post left knee arthroscopy in January of this year presents with worsening left knee pain, warmth, swelling, and decreased range of motion secondary to pain and joint aspirate that is concerning for acute prosthetic joint infection. Patient afebrile and HDS. Exam notable for mild warmth/swelling of the left knee with significant decreased range of motion secondary to pain. Orthopedic surgery was consulted. They performed bedside arthrocentesis and repeated synovial fluid analysis. Labs notable for mild leukocytosis and elevation in CRP (18.2). Repeat synovial fluid studies notable for WBC = 27, 738, 94% PMNs. Patient is being admitted to orthopedic surgery service for I&D and poly-swap of left TKA. Plan: -Admitted to orthopedic surgery Eze Johnson MD Resident 02/10/19 0849 * Reza Gutierrez MD - 02/10/2019 5:06 AM EDT ED ATTENDING ATTESTATION NOTE The patient was seen in conjunction with Dr. Johnson, the resident physician. I have independently performed the nugent portions of the history and physical exam. I have reviewed the nursing notes, vital signs, and all diagnostic studies personally including labs, imaging studies and EKGs. I have discussed the details of the case with the resident and agree with the assessment and plan as described in the resident note above unless noted otherwise below. Brief Summary: 53-year-old female who had a left total knee replacement roughly 1 year ago and had arthroscopic surgery done roughly 3 weeks ago at [place]. Now presenting with increased swelling and pain. Had arthrocentesis today which showed 45,000 RBCs of 94 PMNs. Gram stain is negative. Whitecount is 13.4. Patient claims of chills last night. She has very limited range of motion of the left knee and this causes marked pain. It is warm to the touch and mildly swollen. Patient was accepted in transfer by orthopedic team. Orthopedic resident evaluated the patient uponarrival. Final Assessment: 53-year-old female with concern for periprosthetic knee infection. Awaiting Orthorecommendations Reza Gutierrez MD 02/10/19 0524 * Reza Gutierrez MD - 02/10/2019 2:25 AM EDT The patient is being transferred to the emergency department from [facility], accepted by myself and will be evaluated by the orthopedic team. This is a 53-year-old female with concerns for periprosthetic knee infection. Labs show normal ESR and CRP with a white blood cell count of 13.4. Arthrocentesis shows 45,000 WBCs with 94% PMNs. Negative Gram stain. Patient will be evaluated by the orthopedic team and may need incision and drainage with poly-swab. No antibiotic's have been given. Reza Gutierrez MD 02/10/19 0227 documented in this encounter Miscellaneous Notes * Plan of Care - Mita Suarez RN - 02/15/2019 2:30 AM EDT Problem: Patient Care Overview Goal: Plan of Care Review Outcome: Ongoing (Interventions Implemented as Appropriate) 02/13/19 1543 02/14/191999 Coping/Psychosocial Plan Of Care Reviewed With -- patient Plan of Care Review Progress improving -- OUTCOME EVALUATION NOTE: ?? OUTCOME SUMMARY: ?? Pt A+O, VSS. ??Slept well between care overnight. ??PRN oxycodone controlling pain. Voiding withoutissue up to toilet. Went for walk before bed. ??Plan is for d/c today with PICC and IV abx at home.No other acute events, will continue to monitor. ?? PLAN MOVING FORWARD: ?? Pain control, mobility, IV abx, d/c planning ?? INDIVIDUALIZED FALL PREVENTION INTERVENTIONS: ?? Patient-specific fall risk factors per assessment: [current deficits]:?Pain, narcotics, hospitalenvironment, generalized weakness ? Assistance [level of assistance required for transfers and ambulation]:?Independent w/ crutches ?? Supervision [direct monitoring required during toileting and ADLs]:?Indpendent ?? Surveillance [continuous indirect monitoring]:?Masimo, purposeful rounding ?? Patient-specific fall prevention interventions for sensory deficits provided, if applicable:?[X]N/A ? CPG GOAL OUTCOME EVALUATION:? * Plan of Care - Haily Mejia, PT - 02/14/2019 11:15 AM EDT Physical Therapy Assessment Treatment Number PT: 3 Patient Profile: Pertinent History of Current Problem: 53 y.o female s/p ? ?s/p left knee I&D, polyethylene exchange for acute PJI with Dr. Valdez 02/10/19?? Precautions/Restrictions: fall, weight bearing Precautions Comments: WBAT LLE, premedicate for pain, assist w/ LLE for bed mobility prn Social Hx/Premorbid level of function: Living Environment Comment: (P) Pt lives with her in [facility] in a 2 level home but she will be on the first level. OOB toward L side of high bed. 3- 4 stairs to enter w/o railing, uses crutches(therex, functional activities, home management) Prior Functional Level Comment: (P) Fully indep but limited by L knee disability. 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 BT shower, no chair Staff Mobility Recommendations/Present level of Function: ad leora, cleared for DC to home when medically stable S: Pt reports that she is unsure if she will be DC'd today O: Pt seen for TKA exs, gait and mobility training w/ home management discussion A/P: Pt is now POD # 4, all PT goals met and pt is safe for and ageeable to DC home when medically stable Please refer to the following flowsheet for details on pt status, mobility, goals and DC Recommendations Therapy Frequency: 1-3 more visits Anticipated Equipment Needs at Discharge: (? shower chair, given leglifter) Anticipated Discharge Disposition: (P) home with assist, home with home health Demonstrates Need for Referral to Another Service: home health care, occupational therapy HAILY MEJIA, PT Pager: [phone] Inpatient Physical Therapy 02/14/19 1115 Rehab Evaluation Document Type therapy note (daily note) Total Evaluation Minutes, Physical Therapy 43 General Information Treatment Number PT 3 Left Lower Extremity (Weight Bearing Status) weight-bearing as tolerated Living Environment Living Environment Comment Pt lives with her in [facility] in a 2 level home but she will be on the first level. OOB toward L side of high bed. 3-4 stairs to enter w/o railing, uses crutches (therex, functional activities, home management) Functional Level Prior Prior Functional Level Comment Fully indep but limited by L knee disability. 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 BT shower, no chair Cognitive Assessment Interventions Behavior/Mood Observations (Cognitive) WNL/WFL;behavior appropriate to situation;alert;cooperative Pain Scale/Rating Pain Assessment Scale Word (verbal rating pain scale) Pain Level (Tolerable ) Pain Assessment Numbers/Faces/Word Pain Body Location - Side Left Pain Body Location - Orientation anterior Pain Body Location knee Frequency frequent Factors That Aggravate Pain positioning;movement;activity (antigravity and eccentric extension, ) Factors That Relieve Pain cold application;medication timing;rest;repositioning Nonverbal Indicators of Pain grimace Pain Management Interventions cold applied;pain management plan reviewed with patient/caregiver ROM (Range of Motion) Additional Documentation (antigravity and eccentric extension, ) MMT (Manual Muscle Testing) Additional Documentation (painful but + SAQ, SLR and FAQ) Weight-Bearing Status Extremity Weight Bearing Status left lower extremity Bed Mobility Assessment/Treatment Comment (Bed Mobility) indep in and OO flat, high bed, leglifter prn Transfer Assessment/Treatment Comment (Transfers) S only and safe for ad leora w/ crutches Gait Assessment/Treatment [place] (Gait) conditional independence Assistive Device (Gait) axillary crutches Distance in Feet (Gait) 150 + Gait Pattern Analysis swing-through gait Comment (Gait) Pt demonstrating smooth, reciprocal gait pattern w/ no observable limp Stairs Assessment/Treatment Comment (Stairs) safe on stairs on last PT Rx AM-PAC Basic Mobility AM-PAC Mobility Completed? Yes Turning from your back to your side while in a flat bed w/o using handrails? 4 - None Standing up from a chair using your arms (e.g. wheelchair, or bedside commode)? 4 - None Moving from lying on your back to sitting on the side of a flat bed w/o using bedrails? 4 - None Moving to and from a bed to a chair (inclucing a wheelchair) 4 - None To walk in hospital rooom? 4 - None Climbing 3-5 steps with a railing?* 4 - None AM-PAC Basic Mobility Raw Score 24 Basic Mobility Standardized T-Scale Score 61.14 Basic Mobility CMS 0-100% 0 AM-PAC Basic Mobility CMS Modifier CH Coping Verbalized Emotional State acceptance Observed Emotional State accepting;calm;cooperative Plan of Care Review Plan Of Care Reviewed With patient;spouse (RN) Progress improving Bed Mobility Goal Bed Mobility Goal, Date Established 02/11/19 Bed Mobility Goal, Time to Achieve 2 - 3 days (by DC to home w/ home PT) Bed Mobility Goal, Activity Type all bed mobility activities Bed Mobility Goal, [place] Level conditional independence Bed Mobility Goal, Assistive Device 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 Bed Mobility Goal, Date Goal Reviewed 02/14/19 Bed Mobility Goal, Outcome Achieved goal met Gait Training Goal Gait Training Goal, Date Established 02/11/19 Gait Training Goal, Time to Achieve 2 - 3 days (by DC to home w/ home PT) Gait Training Goal, [place] Level conditional independence Gait Training Goal, Assist Device crutches, axillary Gait Training Goal, Distance to Achieve 150 Gait Training Goal, Additional Goal Pt will ascend/descend 4 stairs w/ crutches w/ husbands S Gait Training Goal, Date Goal Reviewed 02/14/19 Gait Training Goal, Outcome goal met Transfer Training Goal Transfer Training Goal, Date Established 02/11/19 Transfer Training Goal, Time to Achieve 2 - 3 days (by DC to home w/ home PT) Transfer Training Goal, Activity Type all transfers Transfer Train Goal, [place] Level conditional independence Transfer Training Goal, Assist Device crutches, axillary;shower chair Transfer Train Goal, Date Goal Reviewed 02/14/19 Transfer Training Goal, Outcome goal met Physical Therapy Goal PT Goal, Date Established 02/11/19 PT Goal, Time to Achieve 2 - 3 days (by DC to home w/ home PT) PT Goal, Activity Type Pt will understand and perform TKA exs correctly PT Goal, [place] Level supervision required PT Goal, Additional Goal Pt's ability to perform exs, ADL tasks, mobilize and ambulate will not be limited by pain PT Goal, Date Goal Reviewed 02/14/19 PT Goal, Outcome goal met Clinical Impression Anticipated Discharge Disposition home with assist;home with home health * Plan of Care - Mita Suarez RN - 02/14/2019 2:30 AM EDT Problem: Patient Care Overview Goal: Plan of Care Review Outcome: Ongoing (Interventions Implemented as Appropriate) 02/13/19 1543 02/13/19 5448 Coping/Psychosocial Plan Of Care Reviewed With -- patient Plan of Care Review Progress improving -- OUTCOME EVALUATION NOTE: ?? OUTCOME SUMMARY: ?? Pt A+O, VSS. Slept well between care overnight. PRN oxycodone controlling pain. Voiding without issue up to toilet. Went for walk before bed. PICC dressing changed during day shift and is more tolerable per pt. Continues to have irritation to old PIV site, warm compresses applied with + effect. No other acute events, will continue to monitor. ?? PLAN MOVING FORWARD: ?? Pain control, mobility, IV abx, d/c planning ?? INDIVIDUALIZED FALL PREVENTION INTERVENTIONS: ?? Patient-specific fall risk factors per assessment: [current deficits]: Pain, narcotics, hospital environment, generalized weakness ?? Assistance [level of assistance required for transfers and ambulation]: SBA w/ crutches ?? Supervision [direct monitoring required during toileting and ADLs]: Eyes on ?? Surveillance [continuous indirect monitoring]: Masimo, purposeful rounding ?? Patient-specific fall prevention interventions for sensory deficits provided, if applicable: [X] N/A ? CPG GOAL OUTCOME EVALUATION: * Plan of Care - Rae Hawkins RN - 02/13/2019 3:48 PM EDT Problem: Patient Care Overview Goal: Plan of Care Review 02/13/19 1543 Coping/Psychosocial Plan Of Care Reviewed With patient Plan of Care Review Progress improving OUTCOME EVALUATION NOTE: OUTCOME SUMMARY: Patient complaints that picc dressing continues to itch and has worsened. IV team paged and dressing changed. Patient stating the new dressing is more tolerable. Patient noted to have a raised reddened/hardened area in left forearm. paged and warm compresses applied. Patient has ambulated aroundthe unit x 2 today with crutches and SBA. Voiding in bathroom. Ice applied to knee for comfort. Tolerating current pain regimen. PLAN MOVING FORWARD: Discharge planning INDIVIDUALIZED FALL PREVENTION INTERVENTIONS: Patient-specific fall risk factors per assessment: [current deficits]: Recent surgery. medications Assistance [level of assistance required for transfers and ambulation]: Standby assist w/ crutches. Supervision [direct monitoring required during toileting and ADLs]: Eyes on Surveillance [continuous indirect monitoring]: Rounding/masimo CPG GOAL OUTCOME EVALUATION: Goal: Individualization & Mutuality 02/13/19 1543 Mutuality/Individual Preferences What Anxieties, Fears or Concerns Do You Have About Your Health or Care? denies Goal: Fall Prevention-Safe Patient Handling 02/13/19 0732 Activity Activity Type activity adjusted per tolerance Activity Assistance Provided assistance, 1 person Assistive Device Utilized crutches Daily Care Interventions Self-Care Promotion independence encouraged [place] Fall Risk History of Falling 0 Secondary Diagnosis 15 Ambulatory Aids 15 Intravenous Therapy/Heparin/Saline Lock 20 Gait/Transferring 10 Mental Status 0 Score 60 OTHER E[place] Fall Risk High Restraint Interventions Safety Promotion/Fall Prevention activity supervised;nonskid shoes/slippers when out of bed;fall prevention program maintained Positioning Body Position independent Goal: Infection Control 02/13/19 0732 Safety Interventions Isolation Precautions standard precautions maintained Infection Prevention rest/sleep promoted;personal protective equipment utilized;single patient roomprovided Coping Strategies Supportive Measures active listening utilized;problem solving facilitated;relaxation techniques promoted Goal: Discharge Needs Assessment 02/13/19 1543 Discharge Needs Assessment Concerns To Be Addressed no discharge needs identified Goal: Interdisciplinary Rounds/Family Conf 02/13/19 1543 Interdisciplinary Rounds/Family Conf Participants patient;nursing Problem: Health Knowledge, Opportunity to Enhance (Adult,NICU,,Obstetrics,Pediatric) Goal: Identify Related Risk Factors and Signs and Symptoms Related risk factors and signs and symptoms are identified upon initiation of Human Response Clinical Practice Guideline (CPG) 02/13/19 1543 Health Knowledge, Opportunity to Enhance Health Knowledge, Opportunity for Enhanced: Related Risk Factors fatigue Goal: Knowledgeable about Health Subject/Topic Patient will demonstrate the desired outcomes by discharge/transition of care. 02/13/19 1543 Health Knowledge, Opportunity to Enhance (Adult,NICU,[place],Obstetrics,Pediatric) Knowledgeable about Health Subject/Topic making progress toward outcome * Plan of Care - Edwin Zimmerman RN - 02/13/2019 2:45 AM EDT Problem: Patient Care Overview Goal: Plan of Care Review Outcome: Ongoing (Interventions Implemented as Appropriate) 02/12/19 1429 02/12/19 1946 Coping/Psychosocial Plan Of Care Reviewed With -- patient Plan of Care Review Progress improving -- Sissy's pain has been well controlled with her pain regimen. Has been up with SBA with crutches. Voiding adequately. Had complaints of irritation from PICC line dressing. Vascular Access came by ad saw her and placed 3 different dressings to her left arm. At this time none of these trial dressings are causing irritation. Will continue to monitor and let V[facility] Access know which dressing works best for her. Has been sleeping between care with call light and personal items within reach. Goal: Individualization & Mutuality Outcome: Ongoing (Interventions Implemented as Appropriate) 02/10/19 1553 02/12/191428 Mutuality/Individual Preferences What Anxieties, Fears or Concerns Do You Have About Your Health or Care? -- denies What Questions Do You Have About Your Health or Care? patient denies -- What Information Would Help Us Give You More Personalized Care? patient denies -- Goal: Fall Prevention-Safe Patient Handling Outcome: Ongoing (Interventions Implemented as Appropriate) 02/12/19 1043 02/12/191945 Activity Activity Type activity adjusted per tolerance -- Activity Assistance Provided assistance, 1 person -- Assistive Device Utilized crutches -- Daily Care Interventions Self-Care Promotion independence encouraged -- [place] Fall Risk History of Falling -- 0 Secondary Diagnosis -- 15 Ambulatory Aids -- 15 Intravenous Therapy/Heparin/Saline Lock -- 20 Gait/Transferring -- 10 Mental Status -- 0 Score -- 60 OTHER [place] Fall Risk -- High Restraint Interventions Safety Promotion/Fall Prevention -- activity supervised;fall prevention program maintained;nonskid shoes/slippers when out of bed;safety round/check completed Positioning Body Position independent -- Goal: Infection Control Outcome: Ongoing (Interventions Implemented as Appropriate) 02/12/191945 Safety Interventions Isolation Precautions standard precautions maintained Infection Prevention single patient room provided;rest/sleep promoted;environmental surveillance performed Coping Strategies Supportive Measures active listening utilized;verbalization of feelings encouraged Goal: Discharge Needs Assessment Outcome: Ongoing (Interventions Implemented as Appropriate) 02/12/191428 Discharge Needs Assessment Concerns To Be Addressed no discharge needs identified Goal: Interdisciplinary Rounds/Family Conf Outcome: Ongoing (Interventions Implemented as Appropriate) 02/12/191428 Interdisciplinary Rounds/Family Conf Participants patient;nursing Problem: Skin Integrity Impairment, Risk/Actual (Adult) Intervention: Promote/Optimize Nutrition 02/11/19 1753 02/12/19 1111 Hygiene Care Oral Care -- teeth brushed Nutrition Interventions Oral Nutrition Promotion physical activity promoted;rest periods promoted -- Intervention: Prevent/Manage Excess Moisture 02/11/19 0728 02/12/19 1043 02/12/19 1823 Hygiene Care Perineal Care -- absorbent pad changed -- Bathing/Skin Care -- -- bath, chlorhexidine;linen changed Skin Interventions Skin Protection adhesive use limited;tubing/devices free from skin contact -- -- Intervention: Prevent/Minimize Sheer/Friction Injuries 02/12/19 0910 02/12/19 104 Skin Interventions Pressure Reduction Devices positioning supports utilized;pressure-redistributing mattress utilized -- Pressure Reduction Techniques frequent weight shift encouraged -- Positioning Positioning/Transfer Devices -- pillows;in use Goal: Identify Related Risk Factors and Signs and Symptoms Related risk factors and signs and symptoms are identified upon initiation of Human Response Clinical Practice Guideline (CPG) Outcome: Ongoing (Interventions Implemented as Appropriate) 02/11/191752 Skin Integrity Impairment, Risk/Actual Skin Integrity Impairment, Risk/Actual: Related Risk Factors surgery/procedure Goal: Skin Integrity/Wound Healing Patient will demonstrate the desired outcomes by discharge/transition of care. Outcome: Unable to achieve outcome by discharge 02/11/191752 Skin Integrity Impairment, Risk/Actual (Adult) Skin Integrity/Wound Healing making progress toward outcome Problem: Health Knowledge, Opportunity to Enhance (Adult,NICU,,Obstetrics,Pediatric) Intervention: Enhance Health Knowledge 02/12/191945 Coping Strategies Supportive Measures active listening utilized;verbalization of feelings encouraged Family/Support System Care self-care encouraged Goal: Identify Related Risk Factors and Signs and Symptoms Related risk factors and signs and symptoms are identified upon initiation of Human Response Clinical Practice Guideline (CPG) Outcome: Ongoing (Interventions Implemented as Appropriate) 02/12/19 142 Health Knowledge, Opportunity to Enhance Health Knowledge, Opportunity for Enhanced: Related Risk Factors fatigue Goal: Knowledgeable about Health Subject/Topic Patient will demonstrate the desired outcomes by discharge/transition of care. Outcome: Ongoing (Interventions Implemented as Appropriate) 02/12/19 142 Health Knowledge, Opportunity to Enhance (Adult,NICU,[place],Obstetrics,Pediatric) Knowledgeable about Health Subject/Topic making progress toward outcome * Plan of Care - Rae Hawkins RN - 02/12/2019 2:38 PM EDT Problem: Patient Care Overview Goal: Plan of Care Review 02/12/191428 Coping/Psychosocial Plan Of Care Reviewed With patient Plan of Care Review Progress improving OUTCOME EVALUATION NOTE: OUTCOME SUMMARY: Patient has been tolerating prn oxycodone and ice for pain relief. Patient encouraged to let nursing know when her pain level starts to increase before it gets too high. Patient has been ambulating in room with SBA and FWW. Patient complaints that PICC dressing is irritating. IV nurse paged to assess PICC dressing And to change. Patient encouraged by SENIOR USER EXPERIENCE ARCHITECT to apply ice to see to if symptoms resolve. PLAN MOVING FORWARD: PT/Ot. Abxs. Discharge planning INDIVIDUALIZED FALL PREVENTION INTERVENTIONS: Patient-specific fall risk factors per assessment: [current deficits]: medications Assistance [level of assistance required for transfers and ambulation]: Standby assist w/fww Supervision [direct monitoring required during toileting and ADLs]: Hands on Surveillance [continuous indirect monitoring]: kevin/jos CPG GOAL OUTCOME EVALUATION: Goal: Individualization & Mutuality 02/12/191428 Mutuality/Individual Preferences What Anxieties, Fears or Concerns Do You Have About Your Health or Care? denies Goal: Fall Prevention-Safe Patient Handling 02/12/19 1043 Activity Activity Type activity adjusted per tolerance Activity Assistance Provided assistance, 1 person Assistive Device Utilized crutches Daily Care Interventions Self-Care Promotion independence encouraged Eaton Fall Risk History of Falling 0 Secondary Diagnosis 15 Ambulatory Aids 15 Intravenous Therapy/Heparin/Saline Lock 20 Gait/Transferring 10 Mental Status 0 Score 60 OTHER Eaton Fall Risk High Restraint Interventions Safety Promotion/Fall Prevention activity supervised;nonskid shoes/slippers when out of bed;fall prevention program maintained Positioning Body Position independent Goal: Infection Control 02/12/19 0910 02/12/19 1043 Safety Interventions Isolation Precautions -- standard precautions maintained Infection Prevention -- rest/sleep promoted;personal protective equipment utilized;equipment surfaces disinfected Coping Strategies Supportive Measures active listening utilized -- Goal: Discharge Needs Assessment 02/12/19 142 Discharge Needs Assessment Concerns To Be Addressed no discharge needs identified Goal: Interdisciplinary Rounds/Family Conf 05/11/19 1429 Interdisciplinary Rounds/Family Conf Participants patient;nursing Problem: Health Knowledge, Opportunity to Enhance (Adult,NICU,[place],Obstetrics,Pediatric) Goal: Identify Related Risk Factors and Signs and Symptoms Related risk factors and signs and symptoms are identified upon initiation of Human Response Clinical Practice Guideline (CPG) 02/12/19 1429 Health Knowledge, Opportunity to Enhance Health Knowledge, Opportunity for Enhanced: Related Risk Factors fatigue Goal: Knowledgeable about Health Subject/Topic Patient will demonstrate the desired outcomes by discharge/transition of care. 02/12/19 1429 Health Knowledge, Opportunity to Enhance (Adult,NICU,,Obstetrics,Pediatric) Knowledgeable about Health Subject/Topic making progress toward outcome * Plan of Care - Edwin Zimmerman RN - 02/12/2019 2:48 AM EDT Problem: Patient Care Overview Goal: Plan of Care Review Outcome: Ongoing (Interventions Implemented as Appropriate) 02/11/19 1753 02/12/19 0237 Coping/Psychosocial Plan Of Care Reviewed With -- patient Plan of Care Review Progress progress toward functional goals as expected -- Sissy's pain has been well controlled with her pain regimen. Has been up with SBA with crutches. Voiding adequately. Has been sleeping between care with call light and personal items within reach. Goal: Individualization & Mutuality Outcome: Ongoing (Interventions Implemented as Appropriate) 02/10/19 1553 Mutuality/Individual Preferences What Anxieties, Fears or Concerns Do You Have About Your Health or Care? patient denies What Questions Do You Have About Your Health or Care? patient denies What Information Would Help Us Give You More Personalized Care? patient denies Goal: Fall Prevention-Safe Patient Handling Outcome: Ongoing (Interventions Implemented as Appropriate) 02/11/19 1523 02/11/19 1700 02/11/19 1753 Activity Activity Type -- -- activity adjusted per tolerance Activity Assistance Provided -- assistance, 1 person -- Assistive Device Utilized -- crutches -- Daily Care Interventions Self-Care Promotion -- -- independence encouraged;BADL personal objects within reach;BADL personal routines maintained E[place] Fall Risk History of Falling -- -- -- Secondary Diagnosis -- -- -- Ambulatory Aids -- -- -- Intravenous Therapy/Heparin/Saline Lock -- -- -- Gait/Transferring -- -- -- Mental Status -- -- -- Score -- -- -- OTHER E[place] Fall Risk -- -- -- Restraint Interventions Safety Promotion/Fall Prevention activity supervised;fall prevention program maintained;muscle strengthening facilitated;nonskid shoes/slippers when out of bed;safety round/check completed -- -- Positioning Body Position independent;up in chair -- -- 02/11/191914 Activity Activity Type -- Activity Assistance Provided -- Assistive Device Utilized -- Daily Care Interventions Self-Care Promotion -- E[place] Fall Risk History of Falling 0 Secondary Diagnosis 15 Ambulatory Aids 15 Intravenous Therapy/Heparin/Saline Lock 20 Gait/Transferring 10 Mental Status 0 Score 60 OTHER E[place] Fall Risk High Restraint Interventions Safety Promotion/Fall Prevention -- Positioning Body Position -- Goal: Infection Control Outcome: Ongoing (Interventions Implemented as Appropriate) 02/11/19 15202/11/19175202/11/191914 Safety Interventions Isolation Precautions standard precautions maintained -- -- Infection Prevention -- barrier precautions utilized;environmental surveillance performed;rest/sleep promoted -- Coping Strategies Supportive Measures -- -- active listening utilized;verbalization of feelings encouraged Goal: Interdisciplinary Rounds/Family Conf Outcome: Ongoing (Interventions Implemented as Appropriate) 02/11/191752 Interdisciplinary Rounds/Family Conf Participants nursing;patient Problem: Skin Integrity Impairment, Risk/Actual (Adult) Intervention: Promote/Optimize Nutrition 02/11/191752 Hygiene Care Oral Care teeth brushed Nutrition Interventions Oral Nutrition Promotion physical activity promoted;rest periods promoted Intervention: Prevent/Manage Excess Moisture 02/11/1928 02/11/19 1000 02/11/19 1229 Hygiene Care Perineal Care -- -- absorbent pad changed;female external catheter changed;perianal area cleansed;perineal area cleansed Bathing/Skin Care -- bath, partial;incontinence care;dressed/undressed -- Skin Interventions Skin Protection adhesive use limited;tubing/devices free from skin contact -- -- Intervention: Prevent/Minimize Sheer/Friction Injuries 02/11/1972702/11/19 152 Skin Interventions Pressure Reduction Devices pressure-redistributing mattress utilized -- Pressure Reduction Techniques frequent weight shift encouraged -- Positioning Positioning/Transfer Devices -- pillows;in use Goal: Identify Related Risk Factors and Signs and Symptoms Related risk factors and signs and symptoms are identified upon initiation of Human Response Clinical Practice Guideline (CPG) Outcome: Ongoing (Interventions Implemented as Appropriate) 02/11/19 175 Skin Integrity Impairment, Risk/Actual Skin Integrity Impairment, Risk/Actual: Related Risk Factors surgery/procedure Goal: Skin Integrity/Wound Healing Patient will demonstrate the desired outcomes by discharge/transition of care. Outcome: Ongoing (Interventions Implemented as Appropriate) 02/11/19 175 Skin Integrity Impairment, Risk/Actual (Adult) Skin Integrity/Wound Healing making progress toward outcome Problem: Health Knowledge, Opportunity to Enhance (Adult,NICU,,Obstetrics,Pediatric) Intervention: Enhance Health Knowledge 02/11/19 402 Coping Strategies Supportive Measures active listening utilized;verbalization of feelings encouraged Family/Support System Care self-care encouraged * Plan of Care - Liliana Martinez RN - 02/11/2019 6:01 PM EDT Problem: Patient Care Overview Goal: Plan of Care Review Outcome: Ongoing (Interventions Implemented as Appropriate) 02/11/191752 Coping/Psychosocial Plan Of Care Reviewed With patient Plan of Care Review Progress progress toward functional goals as expected OUTCOME EVALUATION NOTE: OUTCOME SUMMARY: Patient is alert and oriented x4. VSS. Patient tolerating regular diet. Pain controlled with scheduled and PRN meds, see MAR. Dressing to left knee c/d/i. Cryocuff on intermittently. + csmt. Patient worked with PT today, up with 1 assist and crutches. Patient had a single lumen PICC placed in her right arm for long-term antibiotics. Voiding in bathroom/commode. at bedside during shift. Will continue to monitor. PLAN MOVING FORWARD: -Pain Control -Mobilize -Neurovascular checks -D/c planning INDIVIDUALIZED FALL PREVENTION: Fall Score: 60, high Baseline mobility: up ad leora Assistance: -1 assist w/ crutches Supervision: -Hands-on for all transfers and ambulation Surveillance: -Masimo -Purposeful Rounding -Team Care -Bedside Nurse Knowledge Exchange CPG OUTCOME EVALUATION: Goal: Fall Prevention-Safe Patient Handling Outcome: Ongoing (Interventions Implemented as Appropriate) 02/11/19 1523 02/11/19 1700 02/11/191752 Activity Activity Type -- -- activity adjusted per tolerance Activity Assistance Provided -- assistance, 1 person -- Assistive Device Utilized -- crutches -- Daily Care Interventions Self-Care Promotion -- -- independence encouraged;BADL personal objects within reach;BADL personal routines maintained E[place] Fall Risk History of Falling -- -- 0 Secondary Diagnosis -- -- 15 Ambulatory Aids -- -- 15 Intravenous Therapy/Heparin/Saline Lock -- -- 20 Gait/Transferring -- -- 10 Mental Status -- -- 0 Score -- -- 60 OTHER E[place] Fall Risk -- -- High Restraint Interventions Safety Promotion/Fall Prevention activity supervised;fall prevention program maintained;muscle strengthening facilitated;nonskid shoes/slippers when out of bed;safety round/check completed -- -- Positioning Body Position independent;up in chair -- -- Goal: Infection Control Outcome: Ongoing (Interventions Implemented as Appropriate) 02/11/1972702/11/19152202/11/191752 Safety Interventions Isolation Precautions -- standard precautions maintained -- Infection Prevention -- -- barrier precautions utilized;environmental surveillance performed;rest/sleep promoted Coping Strategies Supportive Measures active listening utilized;relaxation techniques promoted;self-care encouraged;verbalization of feelings encouraged -- -- Goal: Interdisciplinary Rounds/Family Conf Outcome: Ongoing (Interventions Implemented as Appropriate) 02/11/191752 Interdisciplinary Rounds/Family Conf Participants nursing;patient Problem: Skin Integrity Impairment, Risk/Actual (Adult) Intervention: Promote/Optimize Nutrition 02/11/191752 Hygiene Care Oral Care teeth brushed Nutrition Interventions Oral Nutrition Promotion physical activity promoted;rest periods promoted Intervention: Prevent/Manage Excess Moisture 02/11/1972702/11/19 1000 02/11/19 1229 Hygiene Care Perineal Care -- -- absorbent pad changed;female external catheter changed;perianal area cleansed;perineal area cleansed Bathing/Skin Care -- bath, partial;incontinence care;dressed/undressed -- Skin Interventions Skin Protection adhesive use limited;tubing/devices free from skin contact -- -- Intervention: Prevent/Minimize Sheer/Friction Injuries 02/11/1972702/11/19 152 Skin Interventions Pressure Reduction Devices pressure-redistributing mattress utilized -- Pressure Reduction Techniques frequent weight shift encouraged -- Positioning Positioning/Transfer Devices -- pillows;in use Goal: Identify Related Risk Factors and Signs and Symptoms Related risk factors and signs and symptoms are identified upon initiation of Human Response Clinical Practice Guideline (CPG) Outcome: Ongoing (Interventions Implemented as Appropriate) 02/11/19 1753 Skin Integrity Impairment, Risk/Actual Skin Integrity Impairment, Risk/Actual: Related Risk Factors surgery/procedure Goal: Skin Integrity/Wound Healing Patient will demonstrate the desired outcomes by discharge/transition of care. Outcome: Ongoing (Interventions Implemented as Appropriate) 02/11/19 1753 Skin Integrity Impairment, Risk/Actual (Adult) Skin Integrity/Wound Healing making progress toward outcome * Plan of Care - Domitila Ward RN - 02/11/2019 5:04 PM EDT Problem: Health Knowledge, Opportunity to Enhance (Adult,NICU,[place],Obstetrics,Pediatric) Goal: Knowledgeable about Health Subject/Topic Patient will demonstrate the desired outcomes by discharge/transition of care. Peripherally Inserted Central Catheter (PICC) Teaching Sheet Peripherally inserted central catheters (jnij-bj-zihd) (PICC) are used when you need IV (intravenous) medicines and fluids. A catheter is a small flexible plastic tube. The catheter is put in througha vein under your skin. A vein is a tube inside your body that carries blood from the body to the heart. The catheter is usually put into a vein on the inside of your upper arm. Then it is threaded up this vein and ends in the blood vessel near your heart. The PICC catheter may be used for taking blood for laboratory tests. You may also get IV fluids andmedicines quickly and easily. Having the catheter may keep your arm from being stuck many times with a needle. The catheter will have 1-3 small tails (tubes) coming from your arm where the catheter was put in. Why do I need a PICC line or midline catheter? PICC lines are used for intermodal dispatcher treatments. PICC lines may be used for up to a year. They areoften put in to give you IV medicines at home. You may need a PICC catheter because caregivers cannot use smaller veins in your body. Smaller veins may be damaged, or they may have poor blood flow. ??? Catheters are also used in case of emergency when you would need medicines or fluids very quickly. ??? The following are medicines and treatments you may get when you have a PICC line. ? Antibiotics. These are medicines to prevent infection. ? Frequent blood sample collection. ? IV medicines that would make your smaller veins sore or damaged. ? Receiving IV fluids for a long period of time. ? Pain medicine. ? Total Parenteral Nutrition: This is also called TPN. TPN is a special liquid food that goes directly into your veins. ? Blood ? Chemotherapy (Medicine for cancer) What are the benefits of having a PICC line put in? Having a PICC line may keep your arm from being stuck many times with a needle to draw blood orstart an IV (intravenous catheter) . ??? Through a PICC catheter, you may have blood taken for tests. You may also get IV fluids and medicines quickly and easily. ??? Small veins can be damaged or irritated by certain drugs or nutritional solutions. A PICC line helps to decrease vein irritation from antibiotics, IV pain drugs, or IV cancer drugs. ??? A PICC line can be left in place when you go home. If you go home with a PICC line in place, home care can be set up via the nurse Carrier Loader to help you. What are possible complications of having a PICC line put in? Some possible complications are: ??? bruising, swelling, or infection in the arm with the PICC line ??? mal-positioned catheter (catheter tip in wrong place) ??? occlusion (blocked catheter) ??? mechanical phlebitis (vein irritation) and thrombosis (clot) Your doctor is the person you should talk to if you have questions about what would happen if you do not choose to have a PICC line put in. Your doctor can talk to you about other choices you may have. What should I expect when it is put in? A written consent that gives your ok to have it put in needs to be signed after you understand thatyou are going to have a PICC put in, and all your questions about the procedure have been answered to your satisfaction. This is a safety feature that the hospital practices before doing procedures. An experienced nurse who has been through special training and education will be putting this catheter in. The procedure is done in a specially equipped room in Interventional Radiology on the third floor. The PICC nurse will first talk to you about any questions that you may have. The PICC nurse will explain to you what is going to be done before starting. Once you arrive in the procedure room in Interventional Radiology, the PICC nurse will then set up for the procedure. She will unwrap the sterile kit and open the needed supplies. A gown and mask andgloves will be worn while putting it in. An ultrasound machine will be used to help guide the catheter in the right place. This machine uses a handle with sound waves to find the vein. The area on your arm where the catheter will be put in is then numbed with a medicine put under your skin with a tiny needle. The nurse will then put in the catheter using fluoroscopy (a type of x-ray) as a guide. Once the catheter is in your vein, it will be threaded up your arm to the area beforeyour heart. While it is being threaded, you may be asked to turn your head. When the catheter is in, the nurse will place a small dressing on the site along with a little bergeron which will help keep the catheter in place. After the procedure is done, a radiologist (doctor in x-ray department) will look at your x-ray to make sure that the end of the catheter is in proper position to give your fluids and/or medications. What should I expect in the care of my PICC? A dressing that is specially made to prevent infections will be put on. After this, the dressing will only be changed once a week unless it needs it sooner. If you go home with the catheter in, you may take a shower as long as you keep the site dry. You can do this by wearing a specially fitted PICC protector that will be provided to you before dischargefrom the hospital. The dressing at the site must be kept clean and dry. It is important that you watch for signs of infection at the site. Your healthcare provider should be notified if these occur: ??? Redness ??? Swelling ??? Pus ??? Pain at the site Other reasons to notify your healthcare provider are: ??? Catheter becomes partially or totally removed ??? Unable to infuse medication/fluid ??? Unable to draw back blood from the catheter. This may be an early sign that a clot is forming on the end of the catheter. If this occurs, a medicine called Cathflo may be used to dissolve this clot. Ask the PICC nurse or your doctor, any questions you may have so you feel secure in consenting to having a PICC line. References: Vascular Access Device Selection, Insertion, and Management, [employer] 07/09. A Review of the Efficacy, Safety, Use, and Administration of Cathflo, [employer] 2005 * Plan of Care - Haily Mejia, PT - 02/11/2019 3:23 PM EDT Physical Therapy Assessment Treatment Number PT: 1 Patient Profile: Pertinent History of Current Problem: 53 y.o female s/p left knee I&D,polyethylene exchange for acute PJI with Dr. Valdez 02/10/19?? Precautions/Restrictions: fall, weight bearing Precautions Comments: WBAT LLE, premedicate for pain, assist w/ LLE for bed mobility prn Social Hx/Premorbid level of function: Living Environment Comment: Pt lives with her in [facility] in a 2 level home but she will beon the first level. OOB toward L side of high bed. 3-4 stairs to enter w/o railing, uses crutches Prior Functional Level Comment: Fully indep but limited by L knee disability. 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 BT shower, no chair Staff Mobility Recommendations/Present level of Function: Assist LLE during bed mob prn, encourage use of leglifter. Pre medicate for PT, Ice/cryocuff to L knee 6x/day, suppor/elevate LLE on lengthwise pillow S: It's pretty painful but tolerable after the medication (Oxycodone and IV Toradol). This leglifter is a God send O: Pt seen for initial eval, TKA protocol exs and precaution teaching, bed mobility, transfer and gait training w/ crutches and home management/DC Planning discussion. Pt's present and supportive. A/P: Pt is now POD # 1 left knee I&D, polyethylene exchange for acute PJI Presenting w/ signif L knee pain, weakness, dec ROM with limitations in functional mobility, gait and ADL. Pt premedicated for pain and was able to tolerate exs and OOB mobility. She needed a little additional assist of LLE getting OOB even w/ leglifter W/ cues and S for transfers and gait w/ crutches. Anticipate that pt will progress toward safe DC to home w/ services and assist (pt will go home on IV Abx) Please refer to the following flowsheet for details on pt status, mobility, goals and DC Recommendations Therapy Frequency: 1-3 more visits Anticipated Equipment Needs at Discharge: (? shower chair, given leglifter) Anticipated Discharge Disposition: home with assist, home with home health Demonstrates Need for Referral to Another Service: home health care, occupational therapy HAILY MEJIA, PT Pager: [phone] Inpatient Physical Therapy 02/11/19 0652 Rehab Evaluation Document Type evaluation Total Evaluation Minutes, Physical Therapy 62 (eval, TKA exs, home management) Patient Effort good Symptoms Noted During/After Treatment increased pain General Information Patient Profile Review yes Referring Physician Courtney Pertinent History of Current Problem 53 y.o female s/p ? ?s/p left knee I&D, polyethylene exchange for acute PJI with Dr. Valdez 02/10/19?? Precautions/Restrictions fall;weight bearing Precautions Comments WBAT LLE, premedicate for pain, assist w/ LLE for bed mobility prn Treatment Number PT 1 Left Lower Extremity (Weight Bearing Status) weight-bearing as tolerated Living Environment Patient population Adult Living Environment Living Environment Comment Pt lives with her in [facility] in a 2 level home but she will be on the first level. OOB toward L side of high bed. 3-4 stairs to enter w/o railing, uses crutches Functional Level Prior Prior Functional Level Comment Fully indep but limited by L knee disability. 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 BT shower, no chair Cognitive Assessment/Intervention Additional Documentation Cognitive Assessment Interventions (Group) Cognitive Assessment Interventions Behavior/Mood Observations (Cognitive) WNL/WFL;behavior appropriate to situation;alert;cooperative (a little nervous re pain, ) Orientation Status (Cognitive) oriented x 4 Attention (Cognitive) WNL/WFL Follows Commands/Answers Questions (Cognitive) able to follow multi-step instructions;100% of the time Personal Safety (Cognitive) fully aware of deficits;good awareness, safety precautions Pain Scale/Rating Pain Assessment Scale Numbers (Numeric Rating Pain Scale) Pain Level 4 Pain Assessment Numbers/Faces/Word Pain Body Location - Side Left Pain Body Location - Orientation anterior Pain Body Location knee Frequency frequent Quality aching;gnawing;pressure;positional;throbbing;soreness;tightness Factors That Aggravate Pain activity;movement;positioning;walking Factors That Relieve Pain cold application;elevation;exercises;medication timing;repositioning;rest Nonverbal Indicators of Pain grimace;guarding Pain Management Interventions [id number] dosing utilized;cold applied;pain management plan reviewed with patient/caregiver;relaxation techniques promoted;pillow support provided;premedicated for activity;prescribed exercises encouraged (length john pillow) ROM (Range of Motion) Additional Documentation (L knee PROM -20-75. 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 (bed flat and elevated, out to L side) Murfur-kl-Ziv [place] (Bed Mobility) contact guard assist;verbal cues required Ugy-ra-Cavnpi [place] (Bed Mobility) not tested Safety Issues (Bed Mobility) decreased use of legs for bridging/pushing Impairments (Bed Mobility) motor control impaired;pain;ROM (range of motion) decreased;strength decreased Comment (Bed Mobility) Able to use leglifter but did provide CG of LLE comig over EOB Transfer Assessment/Treatment [place] (Sit-Stand Transfers) verbal cues required;contact guard assist;nonverbal cues required (demo/gesture) [place] (Stand-Sit Transfers) verbal cues required;contact guard assist;nonverbal cues required (demo/gesture) Xak-Kylcl-Ewg Assistive Device (Transfers) axillary crutches Maintain Weight Bearing Status (Transfers) able to maintain weight bearing status Safety Issues (Transfers) step length decreased Comment (Transfers) Pt able to safely transfer, cues to advance LLE prior to sittng Gait Assessment/Treatment [place] (Gait) nonverbal cues required (demo/gesture);verbal cues required;supervision required Assistive Device (Gait) axillary crutches Distance in Feet (Gait) 80 Gait Pattern Analysis swing-through gait Deviations (Gait) elba decreased;limb motion velocity decreased;step length decreased;stride length decreased;afaco-oc-kzgsdu ratio decreased;weight- shifting ability decreased Maintain Weight Bearing Status (Gait) able to maintain weight bearing status Safety Issues (Gait) step length decreased;weight-shifting ability decreased Impairments (Gait) motor control impaired;pain;ROM (range of motion) decreased;strength decreased Comment (Gait) Was able to estabish a consistent swing through pattern w/ signif limp but pain limited distance ambulated AM-PAC Basic Mobility AM-PAC Mobility Completed? Yes Turning from your back to your side while in a flat bed w/o using handrails? 4 - None Standing up from a chair using your arms (e.g. wheelchair, or bedside commode)? 4 - None Moving from lying on your back to sitting on the side of a flat bed w/o using bedrails? 3 - A Little Moving to and from a bed to a chair (inclucing a wheelchair) 4 - None To walk in hospital [facility]? 4 - None Climbing 3-5 steps with a railing?* 3 - A Little [facility] Basic Mobility Raw Score 22 Basic Mobility Standardized T-Scale Score 53.28 Basic Mobility CMS 0-100% 20.91 AM-PAC Basic Mobility CMS Modifier CJ Coping Verbalized Emotional State acceptance Observed Emotional State accepting;apprehensive;cooperative;calm Plan of Care Review Plan Of Care Reviewed With patient;spouse (RN, community affairs manager) Progress progress toward functional goals as expected Physical Therapy Goal Types Physical Therapy Goal Types Bed Mobility Goal (Group);Gait Training Goal (Group);Transfer Training Goal (Group);Physical Therapy Goal (Group) Bed Mobility Goal Bed Mobility Goal, Date Established 02/11/19 Bed Mobility Goal, Time to Achieve 2 - 3 days (by DC to home w/ home PT) Bed Mobility Goal, Activity Type all bed mobility activities Bed Mobility Goal, [place] Level conditional independence Bed Mobility Goal, Assistive Device 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 Gait Training Goal Gait Training Goal, Date Established 02/11/19 Gait Training Goal, Time to Achieve 2 - 3 days (by DC to home w/ home PT) Gait Training Goal, [place] Level conditional independence Gait Training Goal, Assist Device crutches, axillary Gait Training Goal, Distance to Achieve 150 Gait Training Goal, Additional Goal Pt will ascend/descend 4 stairs w/ crutches w/ husbands S Transfer Training Goal Transfer Training Goal, Date Established 02/11/19 Transfer Training Goal, Time to Achieve 2 - 3 days (by DC to home w/ home PT) Transfer Training Goal, Activity Type all transfers Transfer Train Goal, [place] Level conditional independence Transfer Training Goal, Assist Device crutches, axillary;shower chair Physical Therapy Goal PT Goal, Date Established 02/11/19 PT Goal, Time to Achieve 2 - 3 days (by DC to home w/ home PT) PT Goal, Activity Type Pt will understand and perform TKA exs correctly PT Goal, [place] Level supervision required PT Goal, Additional Goal Pt's ability to perform exs, ADL tasks, mobilize and ambulate will not be limited by pain Clinical Impression Criteria for Skilled Therapeutic Interventions Met yes;treatment indicated Impairments Found (describe specific impairments) ergonomics and body mechanics;gait, locomotion, and balance;integumentary integrity;joint integrity and mobility;muscle performance;ROM (range of motion) Functional Limitations in Following Categories (Describe Specific Limitations) self-care;home management;work;community/leisure Rehab Potential good, to achieve stated therapy goals Therapy Frequency 1-3 more visits Anticipated Equipment Needs at Discharge (? shower chair, given leglifter) Anticipated Discharge Disposition home with assist;home with home health Demonstrates Need for Referral to Another Service home health care;occupational therapy General Interventions Planned Therapy Interventions bed mobility training;gait training;home exercise program;patient/family education;postural re-education;ROM (range of motion);stair training;strengthening;transfer training 2016 PT Evaluation Code Rationale: ?? Diagnosis & Pertinent Co-Morbidities, personal factors, and present illness affecting Plan of Care: Patient Active Problem List Diagnosis Code ??? Hammer toe of left foot M20.42 ??? S/P orthopedic surgery, follow-up exam Z09 ? ? s/p left knee I&D, polyethylene exchange for acute PJI with Dr. Valdez 02/10/19 T84.53XA Additional personal factors or co-morbidities that impact plan: ... ?? Total # of Factors: 0 1-2 3+ x ?? Examination of body system impairments, functional limitations and behaviors, and/or participation restrictions. Addressing 1-2 elements Addressing 3 + elements Addressing 4 + elements ?? Clinical presentation: See assessment above. xStable/Uncomplicated Evolving/Fluctuating Symptoms Unstable/Unpredictable X pain, needs to be premedicated, ice to knee 6x/day ?? Clinical decision making of moderate complexity based on pt's functional performance as outlinedin this evaluation. * Initial Assessments - Caprice Hale RN - 02/11/2019 12:09 PM EDT Office of Care Management Initial Assessment Caprice Hale RN reviewed record and discussed patient with Care Team. Source of Information: patient and Introduced self/reviewed role; services accepted. Reason for Hospitalization: Reason for Admission as Stated by Patient: knee surgery Past Medical History: Diagnosis Date ??? Infection of prosthetic left knee joint 02/10/2019 Hospitalizations Within the Past 30 Days: no, arthroscopy recently but not inpatient stay Anticipated Length Of Stay (If known): Expected Length of Hospitalization: 1-2 days Current Decision-Making Capacity: fully capable of making decisions Advance Care Planning: does not have. [place] AD given Current Coping/Education/Information Needs: verbalizes understanding of plan of care Current Functional Ability: will work with PT Functional Status Prior to Admission: increasingly idependent Home Environment: see PT notes Social & Family Supports/Community Resources: spouse very supportive Behavioral Health History: denies Substance Use/Abuse: denies DAST 10 In the past year have you used an illegal drug or used a prescription medication for non-medical reaons?: No In the past year have you used opioids (oxycodone, Vicodin, heroin, fentanyl, buprenorphine, methadone, etc.) for non-medical reasons?: No AUDIT In the past year have you had 4 or more drinks a day containing alcohol?: No Other Pertinent/Service Specific Information: Health/Prescription Coverage: Primary Insurance: [id number] [place] Secondary Insurance: N/A Prescription Coverage: yes Preferred Pharmacy: per demographic Other: Primary Care Provider: Sari Hay MD [phone] Patient/Caregiver Goals of Treatment: Return home to family care with IV abx at home or go daily toinfusion suite if abx to be given there. OPAT not complete Potential Needs for Transition of Care: Rehab/SNF: Home Health: The patient/medical collections representative has been provided a list of Home Health Agencies/DME vendors which servetheir preferred geographic area. A letter describing our affiliations was reviewed with them and they were educated about their right to choose where referrals are placed. [facility] PHONE: [phone] FAX: [phone] Patient requests referral to [place], [place] or Expected date of discharge: 02/14/19 Referral routed to the Yield Loss Inspector for matching with agency/vendor and to provide any required information. DME: has Dialysis: Community Resources: Transportation: spouse Other: Anticipated Barriers to Discharge/Special Considerations: none., awaiting OPAT Assessment: patient awaiting OPAT to determine plan of care going forward Plan: A member of the Care Management team will continue to monitor progress, follow for continuity of care and assist with transition of care planning. Caprice Hale RN Pager: [phone] * Plan of Care - Mita Suarez RN - 02/11/2019 2:45 AM EDT Problem: Patient Care Overview Goal: Plan of Care Review Outcome: Ongoing (Interventions Implemented as Appropriate) 02/11/19 0232 Coping/Psychosocial Plan Of Care Reviewed With patient Plan of Care Review Progress progress toward functional goals as expected OUTCOME EVALUATION NOTE: OUTCOME SUMMARY: Pt A+O, VSS. Slept well between care overnight. PRN oxycodone controlling pain. Voiding with low PVRs via purewick. Cryocuff on L knee. No other acute events, will continue to monitor. PLAN MOVING FORWARD: Pain control, mobility, IV abx, d/c planning INDIVIDUALIZED FALL PREVENTION INTERVENTIONS: Patient-specific fall risk factors per assessment: [current deficits]: Pain, narcotics, hospital environment, generalized weakness Assistance [level of assistance required for transfers and ambulation]: Not OOB yet Supervision [direct monitoring required during toileting and ADLs]: Hands/eyes on Surveillance [continuous indirect monitoring]: Jos purposeful rounding Patient-specific fall prevention interventions for sensory deficits provided, if applicable: [X] N/A CPG GOAL OUTCOME EVALUATION: * Consult Note - Naina King DO - 02/10/2019 2:25 PM EDT INFECTIOUS DISEASE INITIAL CONSULT NOTE Reason for Consult: We have been asked to see Sissy Eugene by Dr. Nixon for concern for left knee PJI Consulting Service: Orthopedics Consulting Attending: Karen Nixon MD Admission Date: 02/10/2019 History of Present Illness: 53 y.o. female with history of left TKA on 09/07/17 transferred from [facility] for concern for PJI. Following her initial joint replacement, she had chronic stiffness and patellar pain and underwent arthroscopic debridement of fibrotic material/adhesions around the patella 01/18/19. Post-operatively, she had a fluctuant bump over the port site and in follow up on 02/09/19 she had 20 cc of fluid aspirated from the knee which was bloody in appearance. Later that day, developed excruciating knee pain and was seen in the ED. Leukocytosis of 13.4 with ESR of 6 and CRP of 8. Aspirate of knee with 4500 wbc 94%pmns and negative gram stain. She was transferred to [facility] and repeat aspirate with 27,738 wbc 94%pmns with negative gram stain and was taken to OR for I+D and polyswap. In the OR, she underwent synovectomy and the joint components were well fixed. Multiple cultures were sent and polyswap was done. Denies fevers, chills, nausea, vomiting, headache, chest pain or cough. Review of Systems: Pertinent positives and negatives noted in HPI. All other systems reviewed and found negative. Allergies: Allergies Allergen Reactions ??? Adhesive Bandage Rash ??? Codeine Nausea Only Past Medical and Surgical History: Past Medical History: Diagnosis Date ??? Infection of prosthetic left knee joint 02/10/2019 Past Surgical History: Procedure Laterality Date ??? PRO OSTEOTOMY METATARSAL (NOT 1ST) Left 10/01/2015 OSTEOTOMY, METATARSAL, OTHER THAN FIRST, EACH performed by Stanley Koo MD at [facility] ??? PRO XFER SINGLE SUPERFICI LOW LEG TENDON Left 10/01/2015 TENDON TRANSFER, ANKLE, SUPERFICIAL performed by Stanley Koo MD at [facility] Family History: Family History Problem Relation Age of Onset ??? Hypertension Father Social History and Habits: , lives with . 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 Non-smoker, no alcohol use Physical Exam: Last value Range last 24 hrs Temperature Temp: 37.2 ??C (99 ??F) Temp: [36.6 ??C (97.9 ??F)-37.2 ??C (99 ??F)] Heart Rate Heart Rate: 78 Heart Rate: [62-78] Blood Pressure BP: 107/57 BP: (102-122)/(57-77) Respiratory Rate Resp: 16 Resp: [14-20] SpO2 SpO2: 96 % SpO2: [91 %-98 %] General Looks well, alert and oriented HEENT No scleral icterus, clear oropharynx Heart Regular, no murmur Lungs Clear bilaterally Abdomen Normoactive bowel sounds, soft, not tender, no hepatosplenomegaly Extremities No edema. LLE wrapped, no drain, no erythema Lymphnodes No cervical lymphadenopathy Skin No rash Neuro Grossly intact Lines No central lines Laboratory: Recent Labs 02/10/19 0540 WBC 12.7* HGB 13.3 HCT 40.0 PLATELET 268 Recent Labs 02/10/19 0540 NA 139 K 4.3 CL 102 CO2 24 BUN 17 CREATININE 1.06 CRP (mg/L) Date Value 02/10/2019 18.2 (H) Sed Rate (mm/hr) Date Value 02/10/2019 11 Microbiology: Blood Cultures 02/10/19: no growth to date 02/10: joint culture, negative gram stain Operative cultures: multiple, negative gram stain Radiology/Studies/Procedures: No imaging Assessment: Sissy Eugene is a 53 y.o. female with a history of left TKA on 09/20 with recent arthroscopic surgery on 01/18 followed by development of local irritation followed by a fluid collection. Shortly after drainage of collection on 02/09 developed acute knee pain, redness, inability to ambulate. Based on her history, this sounds like an acute PJI possibly from her arthroscopic surgery vs infection introduced from aspirate. Also on differential is chronic infection, but this is less likely given theacute presentation she describes. Her aspirate with 27,738 wbc 94% pmns, gram stain is negative, but sounds as though there was concern for infection intra-operatively and she is now s/p polyswap with multiple cultures sent (gram stain negative). For now, anticipate a 6 week course of therapy for PJI of her left knee, but further recommendations based on culture results. Will follow operative cultures and adjust antibiotics as appropriate. Recommendations: -Cefazolin 2g IV q8 post-operatively -Follow operative cultures -Further recommendations based on culture data, anticipate OPAT on discharge This patient was seen and discussed with ID attending Dr. Lerner. Recommendations discussed with primary treating team. ID will follow, please call with questions Naina King DO Infectious Disease Fellow Pager [phone] Associated attestation - Alexy Lerner MD - 02/11/2019 12:37 AM EDT Attending??Attestation:??I have seen and examined this patient. I have reviewed and agree with the history, findings, assessment, and plan of care as documented in Dr. King's??note. The assessment and plan were formulated in discussion with me. In short, Ms. Eugene is a 53y/o F who underwent aleft TKA in 09/2017 that was complicated by ongoing stiffness for which she returned to the OR on for arthroscopic debridement of fibrotic material/adhesions. There was no evidence of manasa infection at the time of this procedure, but she developed a possible hematoma and a subsequent PJI for which she was taken back to the OR on 02/10/19 for I&D and polyswap after the components were noted to be well fixed. One Gram stain from the operative procedure is now showing GPCs in clusters, s uggestive of Staphylococcus aureus. Ms. Eugene is on cefazolin which is great for MSSA. We should know if it is MSSA versus MRSA soon. If this is MRSA, then she will need to be switched to IV vancomycin. Should this log turner to be a Staphylococcus aureus PJI managed by single-stage revision (polyswap),then Ms. Eugene will need treatment with at least 2 weeks of parenteral therapy prior to transitioning to an oral rifampin-based regimen (e.g. Ciprofloxacin/rifampin). This will need to continue out to 6 months. Alexy Lerner MD * Op Note - Rod Valdez MD - 02/10/2019 1:26 PM EDT [facility] Operative Note Patient Name: Sissy Eugene : [id number] MR#: [id number] Case Date: 02/10/2019 Surgeon: Surgeon(s) and Role: * Rod Valdez MD - Primary * Pia Bennett MD - Resident Preoperative diagnosis: Left prosthetic joint infection Postoperative diagnosis: Left acute prosthetic TKA joint infection Procedure(s) (LRB): @TOTAL KNEE REVISION ARTHROPLASTY, ONE COMPONENT (WRVU 21.12) (Left) Anesthesia: Spinal Tourniquet time: 49 minutes at 275 mmHg Estimated Blood Loss: 100 mL Specimens removed during surgery: joint fluid aspirated and 2 additional micro swabs sent; poly sent for sonication Drains: none Surgical Closure: Primary Closure - skin incision is completely closed without any wires, priyanka, drains or other devices Disposition: aroused from sedation, and taken to the recovery room in a stable condition Condition: doing well without problems (Please see the Surgical Encounter Summary for any Implant and Specimen details pertinent to this patient.) HPI/Surgical Indications: 53 y F with chronic pain and stiffness after L TKA. Recent arthroscopic lysis of adhesions. Inflammatory markers yesterday were normal with mildly elevated intra-articular cell count and differential. Repeat markers at [facility] were elevated with CRP of 18 and ESR of 11. Repeat cell count of 27,738 (94% PMNs). Now consistent with acute PJI. ?? Risks and benefits of I&D/polyswap vs 2 stage revision were discussed with patient. Given acutenature of pain and less than 24 hours of abnormal labs, I think proceeding for I&D/polyswap hasgood chance of infection eradication. Risks of surgery were discussed with the patient including leaning and blood transfusion, blood clots and pulmonary embolism, delayed wound healing, recurrent infection, need for further surgery, knee instability, implant failure, and medical complications up to and including . Despite these risks the patient wished to proceed with surgery and informed consent was signed. The left knee was again indicated as the operative site. Procedure Description: The patient was identified in the preoperative area and her history and physical and surgical consent were reviewed and confirmed. An adductor canal block was placed by the regional anesthesia block team and spinal anesthetic was administered by the anesthesia team. The patient was then brought to the operating room and positioned supine on the operating table with all bony prominences well-padded. A nonsterile tourniquet was positioned high in the operative thigh. The patient was administered intravenous tranexamic acid prior to incision. Perioperative antibiotics wereheld until intraoperative cultures were obtained. The foot post and thigh post were placed to assist with intraoperative positioning. A surgical timeout was then held to confirm the patient's identity and planned surgical procedure including site and laterality. All parties were in agreement to proceed. The patient's left lower extremity was then circumferentially prepped with correcting soap, alcohol, and ChloraPrep and draped in standard sterile fashion. The patient's left lower extremity was exsanguinated with an Esmarch and the tourniquet was inflated to 275 mmHg where it remained for 49 minutes. The patient's previous anterior midline surgical scar was excised using a double running technique and sharp dissection was carried down through the subcutaneous tissue until the extensor mechanism was reached. Medial and lateral full- thickness skin flaps were developed and the proposed arthrotomy site was fully exposed. Prior to the arthrotomy a 18-gauge needle was inserted into the knee and 20 cc of cloudy, bloody joint fluid were aspirated and sent for stat cell count as well as standard culture. The cell count returned As 38,759 nucleated cells with 95% PMNs. A medial quadricep splitting parapatellar arthrotomy was then performed using the Bovie. The soft tissue around the medial tibial plateau was elevated in a subperiosteal plane. The previous tibial tunnel was encountered consistent with prior ACL reconstruction and this was sharply debrided with a curette and no foreign material was encountered. Using electrocautery and blunt dissection a completesynovectomy was performed and the medial and lateral gutters were fully established. The knee was carefully flexed and a bent Mg was used to sublux the patella laterally. The polyethylene was thencarefully removed using 1/4 inch osteotome and was sent percent on occasion. A microbiology swab was used to sample the interface between the polyethylene tibial tray. A second microbiology swab was used to sample the posterior capsular tissue. The posterior synovium and capsule was then carefully debrided using a pituitary rongure and Bovie electrocautery. Once a complete synovectomy had been completed both the femoral component and tibial component weretested with a bone tamp and mallet and no micromotion was noted between the implant and cement or the cement and the bone. The patellar component was also inspected and no micromotion was seen. All 3components were determined to be well fixed. We then irrigated the entire knee with 1 L of Bactisure solution followed by 1 L of normal saline. This was done with pulsatile lavage. We then irrigated the entire surgical field and compliance with9 additional liters of normal saline also using pulsatile lavage. Gloves were then changed. The posterior capsular tissue was infiltrated with 30 cc of the local anesthetic cocktail consisting of quarter percent Marcaine with epinephrine as well as 30 mg of Toradol. A new size G, 11 mm polyethylene was then inserted and the locking mechanism was noted to appropriately engage. The remaining 20 cc of local anesthetic cocktail was infiltrated into the anterior softtissue and synovium. The tourniquet was released after 49 minutes of tourniquet time and any bleeding vessels were cauterized with the Bovie. The capsule was then approximated using #1 PDS suture which was then oversewn with #2 strata fix barbed suture. The arthrotomy was noted to be watertight. The deep subcutaneous tissues were closed with running 0 PDS suture. The skin was closed with superficial 2-0 Vicryl and 3-0 running Monocryl suture and sealed with skin glue. The needle and sponge count was correct at the conclusion of the case. The patient was aroused fromsedation, transferred to a hospital bed, and taken to the recovery area in stable condition having suffered no apparent complications. Infection Bundle used? No Attestation: Case Date: 02/10/2019 I was present and I participated during the entire procedure (does not need to include opening and closing). Rod Valdez MD 02/10/2019 * Brief Op Note - Rod Valdez MD - 02/10/2019 1:23 PM EDT Brief Operative Note Patient Name: Sissy Eugene : [id number] MR#: [id number] Case Date: 02/10/2019 Surgeon: Surgeon(s) and Role: * Rod Valdez MD - Primary * Pia Bennett MD - Resident Preoperative diagnosis: Left prosthetic joint infection Postoperative diagnosis: Left Acute prosthetic TKA infection Procedure(s) (LRB): @TOTAL KNEE REVISION ARTHROPLASTY, ONE COMPONENT (WRVU 21.12) (Left) Anesthesia: Spinal Findings: Findings consistent with acute PJI; significant inflammatory synovitis with large cloudy effusion; implants well fixed and retained; complete synovectomy performed and polyethylene exchanged. Complications: none Tourniquet time: 49min @ 275mmHg Intake: 1000cc cyrstalloid Output: Estimated Blood Loss: 100 mL Urine Output:: (no urine output recorded) Other Output: (no other output recorded) Drains: none Specimens removed during surgery: joint fluid and 2 microbiology swabs sent for culture; poly sent for sonication Disposition: aroused from sedation, and taken to the recovery room in a stable condition Condition: doing well without problems Attestation: Case Date: 02/10/2019 I was present and I participated during the entire procedure (does not need to include opening and closing). (Please see the Surgical Encounter Summary for any Implant and Specimen details pertinent to this patient.) * ED Triage - Catrina Crowe NRP - 02/10/2019 4:57 AM EDT Pt arrives by ambulance from [facility]. Pt has been having L knee pain for the past few weeks. She had fluid drained from the knee this past morning. By afternoon, she was not able to walk. L knee is swollen and very painful to move. There is concern about an infected joint. Pt has had a knee replacement with arthroscopy 3 weeks ago. Pt is COA x4. Skin is p/w/d. documented in this encounter Plan of Treatment Scheduled Orders Name Type Priority Associated Diagnoses Orde r Schedule Film Library- Storage Only DX Knee Imaging Storage Only STAT Once PRN (for Radian t use) for 1 Occurrences starting 02/10/2019 until 02/10/2019, 1 completed Film Library- Storage Only DX Knee Imaging Storage Only STAT Once PRN (for Radian t use) for 1 Occurrences starting 02/10/2019 until 02/10/2019, 1 completed Scheduled Referrals Name Type Priority Associated Diagnoses Order Schedule OPAT: Order / Recommendation for Post Discharge IV Antibiotic Management Outpatient Referral Routine Pyogenic arthritis of left knee joint, due to unspecified organism Infection associated with internal right knee prosthesis, subsequent encounter Encounter for long-term (current) use of antibiotics Ordered: 02/15/2019 documented as of this encounter Procedures Procedure Name Priority Date/Time Associated Diagnosis Comments HEMOGRAM Routine 02/13/2019 3:23 AM EDT DIFFERENTIAL, AUTOMATED Routine 02/13/2019 3:23 AM EDT CBC (WITH DIFF) Routine 02/13/2019 3:23 AM EDT BASIC METABOLIC PANEL (NON-FASTING) Routine 02/13/2019 3:23 AM EDT HEMOGRAM Routine 02/12/2019 4:08 AM EDT DIFFERENTIAL, AUTOMATED Routine 02/12/2019 4:08 AM EDT CBC (WITH DIFF) Routine 02/12/2019 4:08 AM EDT BASIC METABOLIC PANEL (NON-FASTING) Routine 02/12/2019 4:08 AM EDT XR PICC PLACEMENT OVER 5 YEARS (IV TEAM) Routine 02/11/2019 4:[address] PICC LINE: CONTACT VASCULAR ACCESS Routine 02/11/2019 4:10 PM EDT HEMOGRAM Routine 02/11/2019 3:07 AM EDT DIFFERENTIAL, AUTOMATED Routine 02/11/2019 3:07 AM EDT CBC (WITH DIFF) Routine 02/11/2019 3:07 AM EDT HEMOGLOBIN A1C Routine 02/11/2019 3:07 AM EDT BASIC METABOLIC PANEL (NON-FASTING) Routine 02/11/2019 3:07 AM EDT SONICATED TISSUE/IMPLANT CULTURE Routine 02/10/2019 2:32 PM EDT PROSTHETIC JOINT CULTURE, EXTENDED HOLD, AEROBIC & ANAEROBIC Routine 02/10/2019 12:53 PM EDT PROSTHETIC JOINT CULTURE, EXTENDED HOLD, AEROBIC & ANAEROBIC Routine 02/10/2019 12:53 PM EDT PROSTHETIC JOINT CULTURE, EXTENDED HOLD, AEROBIC & ANAEROBIC Routine 02/10/2019 12:53 PM EDT JOINT CULTURE Routine 02/10/2019 12:53 PM EDT JOINT CULTURE Routine 02/10/2019 12:53 PM EDT JOINT CULTURE Routine 02/10/2019 12:53 PM EDT ANAEROBIC CULTURE Routine 02/10/2019 12: 53 PM EDT ANAEROBIC CULTURE Routine 02/10/2019 12: 53 PM EDT ANAEROBIC CULTURE Routine 02/10/2019 12: 53 PM EDT CELL COUNT BODY FLUID STAT 02/10/2019 12:13 PM EDT @TOTAL KNEE REVISION ARTHROPLASTY, ONE COMPONENT (WRVU 21.12) 02/10/2019 11:31 AM EDT Left prosthetic joint infection BLOOD CULTURE STAT 02/10/2019 9:20 AM EDT ABORH RECHECK STATUS STAT 02/10/2019 8:32 AM EDT ABO/RH TYPING STAT 02/10/2019 8:32 AM EDT BLOOD CULTURE STAT 02/10/2019 8:32 AM EDT ANTIBODY SCREEN STAT 02/10/2019 8:32 AM EDT TYPE AND SCREEN ([facility]/CGP/SHAILESH) STAT 02/10/2019 8:32 AM EDT TOTAL KNEE REVISION ARTHROPLASTY, ONE COMPONENT Routine 02/10/2019 7:22 AM EDT PROSTHETIC JOINT CULTURE, EXTENDED HOLD, AEROBIC & ANAEROBIC STAT 02/10/2019 5:58 AM EDT JOINT CULTURE STAT 02/10/2019 5:58 AM EDT ANAEROBIC CULTURE STAT 02/10/2019 5:5 8 AM EDT CRYSTAL EXAM BODY FLUID STAT 02/10/2019 5:58 AM EDT CELL COUNT BODY FLUID STAT 02/10/2019 5:58 AM EDT CRP, ACUTE INFLAMMATION STAT 02/10/2019 5:40 AM EDT HEMOGRAM Routine 02/10/2019 5:40 AM EDT DIFFERENTIAL, AUTOMATED Routine 02/10/2019 5:40 AM EDT GOLD TUBE HOLD Routine 02/10/2019 5:40 AM EDT APTT Routine 02/10/2019 5:40 AM EDT SEDIMENTATION RATE STAT 02/10/2019 5: 40 AM EDT PROTHROMBIN TIME Routine 02/10/2019 5:40 AM EDT CBC (WITH DIFF) Routine 02/10/2019 5:40 AM EDT BASIC METABOLIC PANEL (NON-FASTING) Routine 02/10/2019 5:40 AM EDT IMPLANTABLE DEVICES SCAN 02/10/2019 12:00 AM EDT FILM LIBRARY STORAGE ONLY DX KNEE STAT 10/29/2017 12:00 AM EST FILM LIBRARY STORAGE ONLY DX KNEE STAT 09/07/2017 12:00 AM EST documented in this encounter Results * XR Knee 1-2 Views Left (Generic) (03/09/2019 1:40 PM EDT) Anatomical Region Laterality Modality Knee Left Digital Radiogra phy Impressions 03/09/2019 3:50 PM EDT Left total knee arthroplasty. Following the patient's polyethylene exchange, there is no evidence for complication. I have personally reviewed the image(s) and the residents interpretation and agree with the findings, Kolby Aguilar at 03/09/2019 3:50 PM Thank you for letting us participate in the care of this patient. For questions regarding this report, please contact the number below. ? Narrative 03/09/2019 3:50 PM EDT EXAMINATION: XR KNEE 1-2 VIEWS LEFT (GENERIC) CLINICAL HISTORY: s/p polyswap 02/10/19 TECHNIQUE: AP and lateral nonweightbearing views of the left knee COMPARISON: Left knee radiographs dated 10/29/2017 and 09/07/2017 FINDINGS: Patient is status post left total knee arthroplasty in unchanged alignment.. No periprosthetic lucency or fracture. Soft tissue swelling is present about the knee. Procedure Note Kolby Aguilar MD - 03/09/2019 EXAMINATION: XR KNEE 1-2 VIEWS LEFT (GENERIC) CLINICAL HISTORY: s/p polyswap 02/10/19 TECHNIQUE: AP and lateral nonweightbearing views of the left knee COMPARISON: Left knee radiographs dated 10/29/2017 and 09/07/2017 FINDINGS: Patient is status post left total knee arthroplasty in unchangedalignment.. No periprosthetic lucency or fracture. Soft tissue swelling is present aboutthe knee. IMPRESSION Left total knee arthroplasty. Following the patient's polyethyleneexchange, there is no evidence for complication. I have personally reviewed the image(s) and the residents interpretationand agree with the findings, Kolby Aguilar at 03/09/2019 3:50 PM Thank you for letting us participate in the care of this patient. Forquestions regarding this report, please contact the number below. Karen Nixon MD IMG DX ORDERABLES * Differential, Automated (02/13/2019 3:23 AM EDT) Neutrophils % 50.9 % [facility] Neutr Abs (ANC) 3.41 1.70 - 6.10 x10(3)/[facility] Lymphocytes % 31.1 % [facility] Lymphocytes Abs 2.1 0.9 - 3.2 x10(3)/[facility] Monocytes % 10.8 % [facility] Monocyte Abs 0.7 0.3 - 0.9 x10(3)/[facility] Eosinophils % 6.0 % [facility] Eosinophils Abs 0.4 0.0 - 0.4 x10(3)/[facility] Basophils % 0.9 % [facility] Basophils Abs 0.1 0.0 - 0.1 x10(3)/[facility] Immature Gran % 0.30 % [facility] Comment: Immature granulocytes(IG's)percentage and absolute count will include metamyelocytes, myelocytes, and promyelocytes. Blood smears from CBCs yielding IG's will be scanned manually for concordance. If this scan disagrees with the automated IG or if promyelocytes are noted, a manual differential will be performed. Lorrie Gran Abs 0.02 0.00 - 0.04 x10(3)/[facility] Blood specimen (specimen) 02/13/2019 3:23 AM EDT 02/13/2019 3:29 AM EDT Narrative Resulting Agency Comment Spec In Lab Pia Bennett MD HEMATOLOGY ORDERABL ES Performing Organization Address City/[facility]/[place] [address] * (ABNORMAL) Hemogram (02/13/2019 3:23 AM EDT) WBC 6.7 4.0 - 9.5 x10(3)/[facility] RBC 3.82(L) 4.00 - 5.21 x10(6)/[facility] Hemoglobin 10.9(L) 11.7 - 15.5 gm/dL [facility] Hematocrit 33.8(L) 35.7 - 45.8 % [facility] MCV 88.5 82.6 - 94.4 [facility] MCH 28.5 27.1 - 32.0 pg [facility] MCHC 32.2 31.7 - 35.0 gm/dL [facility] Platelets 241 145 - 357 x10(3)/[facility] RDWSD 44.1 37.0 - 46.0 [facility] RDWCV 13.5 11.5 - 14.1 % [facility] MPV 9.5 7.6 - 12.9 [facility] nRBC % Auto 0.0 % [facility] nRBC Abs Auto 0.000 0.000 - 0.000 x10(3)/[facility] Blood specimen (specimen) 02/13/2019 3:23 AM EDT 02/13/2019 3:29 AM EDT Narrative Resulting Agency Comment Spec In Lab Pia Bennett MD HEMATOLOGY ORDERABL ES [facility] [place] [address] * (ABNORMAL) Basic Metabolic Panel (non-fasting) (02/13/2019 3:23 AM EDT) Glucose Lvl 109 65 - 199 mg/dL [facility] Comment:Diabetes: >=200 mg/d L plus symptoms BUN 6(L) 8 - 18 mg/dL [facility] Creatinine 0.77 0.70 - 1.20 mg/dL [facility] Sodium 143 135 - 145 mmol/L [facility] Potassium 3.5 3.5 - 5.0 mmol/L [facility] Comment: Please note: ??Patients with WBC >100,000 may have falsely elevated Potassium levels. ??For accurate Potassium quantification in these patients send serum separator tube (gold top) for subsequent determinations. ??Contact the Clinical Chemistry Laboratory if there are any questions. Chloride 106 98 - 107 mmol/L [facility] CO2 28 22 - 31 mmol/L [facility] Anion Gap 9 5 - 15 mmol/L [facility] Calcium 8.7 8.5 - 10.5 mg/dL [facility] Estimated GFR 87 >=60 mL/min/1. 73 m?? [facility] Comment: The eGFR was calculated using the CKD-EPI equation. As with all creatinine based estimates of kidney function, eGFR values calculated with the CKD-EPI equation are not accurate in patients with acute kidney failure, extremes of body mass or the acutely ill. [email or web address] eGFR 101 >=60 mL/min/1. 73 m?? [facility] Comment: The eGFR was calculated using the CKD-EPI equation. As with all creatinine based estimates of kidney function, eGFR values calculated with the CKD-EPI equation are not accurate in patients with acute kidney failure, extremes of body mass or the acutely ill. [email or web address] Blood specimen (specimen) 02/13/2019 3:23 AM EDT 02/13/2019 3:28 AM EDT Narrative Resulting Agency Comment Spec In Lab Karen Nixon MD CHEMISTRY ORDERABLE S Performing Organization Address City/[facility]/ZIP Co de Phone Number [facility] [place] [address] * (ABNORMAL) Differential, Automated (02/12/2019 4:08 AM EDT) Neutrophils % 59.3 % [facility] Neutr Abs (ANC) 5.76 1.70 - 6.10 x10(3)/[facility] Lymphocytes % 24.5 % [facility] Lymphocytes Abs 2.4 0.9 - 3.2 x10(3)/[facility] Monocytes % 11.7 % [facility] Monocyte Abs 1.1(H) 0.3 - 0.9 x10(3)/[facility] Eosinophils % 3.5 % [facility] Eosinophils Abs 0.3 0.0 - 0.4 x10(3)/[facility] Basophils % 0.6 % [facility] Basophils Abs 0.1 0.0 - 0.1 x10(3)/[facility] Immature Gran % 0.40 % [facility] Comment: Immature granulocytes(IG's)percentage and absolute count will include metamyelocytes, myelocytes, and promyelocytes. Blood smears from CBCs yielding IG's will be scanned manually for concordance. If this scan disagrees with the automated IG or if promyelocytes are noted, a manual differential will be performed. Lorrie Gran Abs 0.04 0.00 - 0.04 x10(3)/[facility] Blood specimen (specimen) 02/12/2019 4:08 AM EDT 02/12/2019 4:15 AM EDT Narrative Resulting Agency Comment Spec In Lab Pia Bennett MD HEMATOLOGY ORDERABL ES Performing Organization Address City/[facility]/ZIP Co de Phone Number [facility] [place] [address] * (ABNORMAL) Hemogram (02/12/2019 4:08 AM EDT) Pathologist [facility] WBC 9.7(H) 4.0 - 9.5 x10(3)/[facility] RBC 3.99(L) 4.00 - 5.21 x10(6)/[facility] Hemoglobin 11.7 11.7 - 15.5 gm/dL [facility] Hematocrit 36.0 35.7 - 45.8 % [facility] MCV 90.2 82.6 - 94.4 [facility] MCH 29.3 27.1 - 32.0 pg [facility] MCHC 32.5 31.7 - 35.0 gm/dL [facility] Platelets 233 145 - 357 x10(3)/[facility] RDWSD 45.0 37.0 - 46.0 [facility] RDWCV 13.5 11.5 - 14.1 % [facility] MPV 9.6 7.6 - 12.9 [facility] nRBC % Auto 0.0 % [facility] nRBC Abs Auto 0.000 0.000 - 0.000 x10(3)/[facility] Blood specimen (specimen) 02/12/2019 4:08 AM EDT 02/12/2019 4:15 AM EDT Narrative Resulting Agency Comment Spec In Lab Pia Bennett MD HEMATOLOGY ORDERABL ES [facility] [place] [address] * Basic Metabolic Panel (non-fasting) (02/12/2019 4:08 AM EDT) Pathologist [facility] Glucose Lvl 102 65 - 199 mg/dL [facility] Comment:Diabetes: >=200 mg/d L plus symptoms BUN 9 8 - 18 mg/dL [facility] Creatinine 0.84 0.70 - 1.20 mg/dL [facility] Sodium 141 135 - 145 mmol/L [facility] Potassium 3.8 3.5 - 5.0 mmol/L [facility] Comment: Please note: ??Patients with WBC >100,000 may have falsely elevated Potassium levels. ??For accurate Potassium quantification in these patients send serum separator tube (gold top) for subsequent determinations. ??Contact the Clinical Chemistry Laboratory if there are any questions. Chloride 105 98 - 107 mmol/L [facility] CO2 26 22 - 31 mmol/L [facility] Anion Gap 10 5 - 15 mmol/L [facility] Calcium 8.9 8.5 - 10.5 mg/dL [facility] Estimated GFR 78 >=60 mL/min/1. 73 m?? [facility] Comment: The eGFR was calculated using the CKD-EPI equation. As with all creatinine based estimates of kidney function, eGFR values calculated with the CKD-EPI equation are not accurate in patients with acute kidney failure, extremes of body mass or the acutely ill. [email or web address] eGFR 91 >=60 mL/min/1. 73 m?? [facility] Comment: The eGFR was calculated using the CKD-EPI equation. As with all creatinine based estimates of kidney function, eGFR values calculated with the CKD-EPI equation are not accurate in patients with acute kidney failure, extremes of body mass or the acutely ill. [email or web address] Blood specimen (specimen) 02/12/2019 4:08 AM EDT 02/12/2019 4:15 AM EDT Narrative Resulting Agency Comment Spec In Lab Karen Nixon MD CHEMISTRY ORDERABLE S [facility] [place] [address] * XR PICC Placement Over 5 Years with Imaging Guidance (IV Team) (02/11/2019 4:46 PM EDT) Anatomical Region Laterality Modality N/A Radio Fluoroscop y Impressions 02/11/2019 4:51 PM EDT FINDINGS/IMPRESSION: Intraprocedural frontal radiograph of the mediastinum demonstrates a right-sided PICC line with its tip projecting over the lower superior vena cava. I have personally reviewed the image(s) and the residents interpretation and agree with the findings, Cristina Gibson at 02/11/2019 4:51 PM Thank you for letting us participate in the care of this patient. For questions regarding this report, please contact the number below. ? Electronically signed by: Cristina Gibson, [facility] ([phone]), at 02/11/2019 4:51 PM Narrative 02/11/2019 4:51 PM EDT EXAMINATION: XR PICC PLACEMENT OVER 5 YEARS WITH IMAGING GUIDANCE (IV TEAM) CLINICAL HISTORY: Confirmation of PICC line placement TECHNIQUE: C-arm placement of PICC line. Limited view of the line tip only. COMPARISON: None Procedure Note Cristina Gibson MD - 02/11/2019 EXAMINATION: XR PICC PLACEMENT OVER 5 YEARS WITH IMAGING GUIDANCE (IVTEAM) CLINICAL HISTORY: Confirmation of PICC line placement TECHNIQUE: C-arm placement of PICC line. Limited view of the line tiponly. COMPARISON: None IMPRESSION FINDINGS/IMPRESSION: Intraprocedural frontal radiograph of themediastinum demonstrates a right-sided PICC line with its tip projecting over thelower superior vena cava. I have personally reviewed the image(s) and the residents interpretationand agree with the findings, Cristina Gibson at 02/11/2019 4:51 PM Thank you for letting us participate in the care of this patient. Forquestions regarding this report, please contact the number below. Electronically signed by: Cristina Gibson [facility]([phone]), at 02/11/2019 4:51 PM Luz Gillette APRN IMG FLUORO ORDERABL ES * Place PICC Line: Contact Vascular Access Page [phone] Extremity to exclude: No restrictions; Is PICC procedure required PRIOR to patients discharge? Yes (02/11/2019 4:10 PM EDT) Narrative Domitila Ward RN - 02/11/2019 4:10 PM EDT Domitila Ward RN ? 02/11/2019 ??5:05 PM PICC/Midline Insertion Procedure Note Indications: Anti-infective and Access This insertion was not to replace a malfunctioning catheter. This insertion was not due to a suspected line-associated infection. Location of Procedure: X-Ray Room 11 Risks and Benefits: The risks and benefits of this procedure were reviewed and informed consent was obtained obtained. Time Out: Prior to the start of the procedure, the patient's identity, intended procedure, site/side, correct patient positioning and presence of the site suzi was confirmed as applicable. The medical history and chart were reviewed to rule out potential contraindications to the planned procedure. 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 Catheter type: PICC Lot number: [id number] Procedure Technique: Skin was prepped with chlorhexidine. Skin preparation agent was completely dry at the time of first skin puncture. The following barrier precaution methods were used:large sterile drape, maske/eye shield, large sterile gown, sterile gloves and cap. 2 ml of 1% Lidocaine was used for skin wheal. Ultrasound was used for guidance. ??Radiographic contrast agent was not injected for vein identification. Procedure Details: Order received for catheter placement. A 4 Fr. single lumen Bard Power catheter was placed into the right basilic vein over a 0.018 inch guidewire using modified seldinger technique and fluoroscopy. Arm circumference was 37 cm at 2 cm above the insertion site. Final catheter length (with trimming): 42 cm Internal: 42 cm External: 0 cm Tip in SVC per DR GIBSON. The line was not placed over a guidewire. Post Procedure: Diagnosis: INFECTED LEFT TKA Blood return noted on aspiration of line after placement confirmed. 5 mls of normal saline infused free flowing to gravity via PICC after insertion. Sterile dressing applied: Biopatch and Sorbaview. Findings: The patient did tolerate the procedure well. No Complications. Procedure Comments: DOMITILA WARD RN 02/11/2019 Luz Gillette APRN PROCEDURE/MINOR ROSEANNA GICAL ORDERABLES * Hemoglobin A1c (02/11/2019 3:07 AM EDT) Hemoglobin A1C 5.4 4.3 - 5.6 % [facility] Comment: Reference Range: 4.3 - 5.6% 5.7 - 6.4% - Increased Risk of Developing Diabetes Mellitus >= 6.5% - Consistent with diagnosis of Diabetes Mellitus In the absence of hyperglycemia (i.e. plasma glucose > 200 mg/dL) or classic symptoms of hyperglycemia a repeat measurement of HbA1c should be performed on a separate sample to confirm the diagnosis. Diagnosis and Classification of Diabetes Mellitus, Diabetes Care 2013; 36: Suppl. 1, S67-74 Est Avg Gluc 109 mg/dL [facility] Comment: eAG equivalents for HbA1c percentages: HbA1c(%) ?eAG(mg/dL) 6.0 ?126 6.5 ?140 7.0 ?154 7.5 ?169 8.0 ?183 8.5 ?197 9.0 ?212 9.5 ?226 10.0 ? 240 Limitations: The eAG calculation has not been validated on women, individuals below 18 years old and above 70 years old, and individuals with hemoglobinopathies. Additional resources are available on the ADA website. Harish BARRAZA, Estrellita J, Pro R, et al. ??Translating the A1C assay into estimated average glucose values. ??Diabetes Care 2008:31(8):3062-2108. Blood specimen (specimen) Venous Draw / Unknown 02/11/2019 3:07 AM EDT 02/11/2019 10:45 AM EDT Narrative Resulting Agency Comment Spec In Lab Maria Luisa ANDERSEN CHEMISTRY ORDERAB LES [facility] [place] [address] * (ABNORMAL) Differential, Automated (02/11/2019 3:07 AM EDT) Neutrophils % 70.2 % [facility] Neutr Abs (ANC) 6.36(H) 1.70 - 6.10 x10(3)/[facility] Lymphocytes % 15.3 % [facility] Lymphocytes Abs 1.4 0.9 - 3.2 x10(3)/[facility] Monocytes % 12.9 % [facility] Monocyte Abs 1.2(H) 0.3 - 0.9 x10(3)/[facility] Eosinophils % 1.0 % [facility] Eosinophils Abs 0.1 0.0 - 0.4 x10(3)/[facility] Basophils % 0.3 % [facility] Basophils Abs 0.0 0.0 - 0.1 x10(3)/[facility] Immature Gran % 0.30 % [facility] Comment: Immature granulocytes(IG's)percentage and absolute count will include metamyelocytes, myelocytes, and promyelocytes. Blood smears from CBCs yielding IG's will be scanned manually for concordance. If this scan disagrees with the automated IG or if promyelocytes are noted, a manual differential will be performed. Lorrie Gran Abs 0.03 0.00 - 0.04 x10(3)/ L [facility] Blood specimen (specimen) 02/11/2019 3:07 AM EDT 02/11/2019 3:26 AM EDT Narrative Resulting Agency Comment Spec In Lab Pia Bennett MD HEMATOLOGY ORDERABL ES Performing Organization Address [facility]/[place] [address] * Hemogram (02/11/2019 3:07 AM EDT) WBC 9.1 4.0 - 9.5 x10(3)/[facility] RBC 4.23 4.00 - 5.21 x10(6)/[facility] Hemoglobin 12.2 11.7 - 15.5 gm/dL [facility] Hematocrit 38.1 35.7 - 45.8 % [facility] MCV 90.1 82.6 - 94.4 [facility] MCH 28.8 27.1 - 32.0 pg [facility] MCHC 32.0 31.7 - 35.0 gm/dL [facility] Platelets 229 145 - 357 x10(3)/[facility] RDWSD 44.2 37.0 - 46.0 [facility] RDWCV 13.5 11.5 - 14.1 % [facility] MPV 9.8 7.6 - 12.9 [facility] nRBC % Auto 0.0 % [facility] nRBC Abs Auto 0.000 0.000 - 0.000 x10(3)/[facility] Blood specimen (specimen) 02/11/2019 3:07 AM EDT 02/11/2019 3:26 AM EDT Narrative Resulting Agency Comment Spec In Lab Pia Bennett MD HEMATOLOGY ORDERABL ES Performing Organization Address City/[facility]/ZIP Co de Phone Number [facility] [place] [address] * Basic Metabolic Panel (non-fasting) (02/11/2019 3:07 AM EDT) Glucose Lvl 121 65 - 199 mg/dL [facility] Comment:Diabetes: >=200 mg/d L plus symptoms BUN 13 8 - 18 mg/dL [facility] Creatinine 0.80 0.70 - 1.20 mg/dL [facility] Sodium 140 135 - 145 mmol/L [facility] Potassium 3.9 3.5 - 5.0 mmol/L [facility] Comment: Please note: ??Patients with WBC >100,000 may have falsely elevated Potassium levels. ??For accurate Potassium quantification in these patients send serum separator tube (gold top) for subsequent determinations. ??Contact the Clinical Chemistry Laboratory if there are any questions. Chloride 104 98 - 107 mmol/L [facility] CO2 25 22 - 31 mmol/L [facility] Anion Gap 11 5 - 15 mmol/L [facility] Calcium 8.8 8.5 - 10.5 mg/dL [facility] Estimated GFR 83 >=60 mL/min/1. 73 m?? [facility] Comment: The eGFR was calculated using the CKD-EPI equation. As with all creatinine based estimates of kidney function, eGFR values calculated with the CKD-EPI equation are not accurate in patients with acute kidney failure, extremes of body mass or the acutely ill. [email or web address] eGFR 96 >=60 mL/min/1. 73 m?? [facility] Comment: The eGFR was calculated using the CKD-EPI equation. As with all creatinine based estimates of kidney function, eGFR values calculated with the CKD-EPI equation are not accurate in patients with acute kidney failure, extremes of body mass or the acutely ill. [email or web address] Blood specimen (specimen) 02/11/2019 3:07 AM EDT 02/11/2019 3:26 AM EDT Narrative Resulting Agency Comment Spec In Lab Karen Nixon MD CHEMISTRY ORDERABLE S Performing Organization Address [facility] [place] [address] * (ABNORMAL) Sonicated Tissue/Implant Culture Prosthetic Joint (02/10/2019 2:32 PM EDT) Sonicated Tissue/Implan t Culture Greater than 100 cfu/10 ml sonicate Staphylococcus lugdunensis Susceptibilities previously reported (A) [facility] Organism Staphylococcus lugdunensis(A) [facility] Prosthetic joint sample (specimen) 02/10/2019 2:32 PM EDT 02/10/2019 2:42 PM EDT Comment:LEFT PROSTHETIC KNEE JOINT Narrative Resulting Agency Comment Spec In Lab Karen Nixon MD MICROBIOLOGY - GENE RAL ORDERABLES Performing Organization Address [facility] Co de Phone Number [facility] [place] [address] * Anaerobic Culture (02/10/2019 12:53 PM EDT) Anaerobic Culture No anaerobic organisms isolated [facility] Joint fluid specimen (specimen) STRUCTURE OF LEFT KNEE REGION / Unknown 02/10/2019 12:53 PM EDT 02/10/2019 2:04 PM EDT Comment:LEFT POSTERIOR SYNOV IUM Narrative Resulting Agency Comment Spec In Lab Rod Valdez MD MICROBIOLOGY - GENER AL ORDERABLES Performing Organization Address [facility]/ZIP Co de Phone Number [facility] [place] [address] * (ABNORMAL) Joint Culture (02/10/2019 12:53 PM EDT) Joint Culture Few Staphylococcus lugdunensis Susceptibilities previously reported (A) [facility] Gram Stain Cytocentrifuge Gram Stain performed Neutrophils seen No microorganisms seen. (A) [facility] Organism Staphylococcus lugdunensis(A) [facility] Joint fluid specimen (specimen) STRUCTURE OF LEFT KNEE REGION / Unknown 02/10/2019 12:53 PM EDT 02/10/2019 2:04 PM EDT Comment:LEFT POSTERIOR SYNOV IUM Narrative Resulting Agency Comment Spec In Lab Rod Valdez MD MICROBIOLOGY - GENER AL ORDERABLES Performing Organization Address [facility] Co de Phone Number [facility] [place] [address] * Anaerobic Culture (02/10/2019 12:53 PM EDT) Anaerobic Culture No anaerobic organisms isolated [facility] Joint fluid specimen (specimen) STRUCTURE OF LEFT KNEE REGION / Unknown 02/10/2019 12:53 PM EDT 02/10/2019 2:05 PM EDT Comment:LEFT TIBIAL TRAY Narrative Resulting Agency Comment Spec In Lab Rod Valdez MD MICROBIOLOGY - GENER AL ORDERABLES Performing Organization Address [facility] Co de Phone Number [facility] [place] [address] * (ABNORMAL) Joint Culture (02/10/2019 12:53 PM EDT) Joint Culture Moderate Staphylococcus lugdunensis(A) [facility] Gram Stain Cytocentrifuge Gram Stain performed Neutrophils seen Moderate Gram Positive Cocci in clusters seen Results called to and read back by Kenneth De Leon ??02/10/19 15:08:50 (A) [facility] Organism Staphylococcus lugdunensis(A) [facility] Organism Gram Positive Cocci in clusters(A) [facility] Joint fluid specimen (specimen) STRUCTURE OF LEFT KNEE REGION / Unknown 02/10/2019 12:53 PM EDT 02/10/2019 2:05 PM EDT Comment:LEFT TIBIAL TRAY Narrative Resulting Agency Comment Spec In Lab Organism Antibiotic Method Susceptibility Staphylococcus lugdunensis Clindamycin RICHEY-CHE SUSCEPTIBILITY METHOD Sensitive Staphylococcus lugdunensis Erythromycin RICHEY-CHE SUSCEPTIBILITY METHOD Sensitive Staphylococcus lugdunensis Gentamicin RICHEY-CHE SUSCEPTIBILITY METHOD Sensitive Comment:Gentamicin i s not appropriate for Green-therapy. Staphylococcus lugdunensis Oxacillin RICHEY-CHE SUSCEPTIBILITY METHOD Sensitive Staphylococcus lugdunensis Tetracycline RICHEY-CHE SUSCEPTIBILITY METHOD Sensitive Staphylococcus lugdunensis Trimethoprim/Sulfa RICHEY-CHE SUSCEPTIBILITY METHOD Resistant Staphylococcus lugdunensis Linezolid RICHEY-CHE SUSCEPTIBILITY METHOD Sensitive Staphylococcus lugdunensis Levofloxacin RICHEY-CHE SUSCEPTIBILITY METHOD Sensitive Staphylococcus lugdunensis Ceftriaxone MINIMUM INHIBITORY CONCENTRATION 1 Rod Valdez MD MICROBIOLOGY - GENER AL ORDERABLES Performing Organization Address [facility]/ZIP Co de Phone Number [facility] [place] [address] * Anaerobic Culture (02/10/2019 12:53 PM EDT) Anaerobic Culture No anaerobic organisms isolated [facility] Joint fluid specimen (specimen) STRUCTURE OF LEFT KNEE REGION / Unknown 02/10/2019 12:53 PM EDT 02/10/2019 2:05 PM EDT Comment:LEFT KNEE FLUID Narrative Resulting Agency Comment Spec In Lab Rod Valdez MD MICROBIOLOGY - GENER AL ORDERABLES Performing Organization Address [facility] Co de Phone Number [facility] [place] [address] * (ABNORMAL) Joint Culture (02/10/2019 12:53 PM EDT) Joint Culture Rare Staphylococcus lugdunensis Susceptibilities previously reported (A) [facility] Gram Stain Cytocentrifuge Gram Stain performed Neutrophils seen No microorganisms seen. (A) [facility] Organism Staphylococcus lugdunensis(A) [facility] Joint fluid specimen (specimen) STRUCTURE OF LEFT KNEE REGION / Unknown 02/10/2019 12:53 PM EDT 02/10/2019 2:05 PM EDT Comment:LEFT KNEE FLUID Narrative Resulting Agency Comment Spec In Lab Rod Valdez MD MICROBIOLOGY - GENER AL ORDERABLES [facility] [place] [address] * Cell Count Body Fluid Knee Joint Fluid (02/10/2019 12:13 PM EDT) Spec Type BF Knee Fl [facility] Color BF Red [facility] Appearance BF Cloudy [facility] WBC BF Ct 38,759 /[facility] Comment: Guideline listed below apply to all body fluids. Differentials on BAL specimens are performed by the Cytology lab section. When Body Fluid WBC count is greater than Zero, a smear is made and scanned. All scan information is correlated with numeric results prior to being released to patients chart. Polymorph % 95 % [facility] Comment: Polymorphonuclear cell percent and absolute values may contain Neutrophils, Eosinophils, and Basophils. Body fluid smear will be scanned manually for concordance. Mononuc % 5 % [facility] Comment: Mononuclear cell percent and absolute values may contain Lymphocytes and Monocytes. Body fluid smear will be scanned manually for concordance. Polymorph BF ABS 36,756 /[facility] Comment: Polymorphonuclear cell percent and absolute values may contain Neutrophils, Eosinophils, and Basophils. Body fluid smear will be scanned manually for concordance. Mononuc ABS 2,003 /[facility] LABORATORY Comment: Mononuclear cell percent and absolute values may contain Lymphocytes and Monocytes. Body fluid smear will be scanned manually for concordance. Knee joint synovial fluid (specimen) 02/10/2019 12:13 PM EDT 02/10/2019 12:19 PM EDT Narrative Resulting Agency Comment Spec In Lab Karen Nixon MD BODY FLUIDS AND STO OLS ORDERABLES [facility] [place] [address] * Blood culture (02/10/2019 9:20 AM EDT) Blood Culture No growth at 5 days. [facility] Blood specimen (specimen) 02/10/2019 9:20 AM EDT 02/10/2019 10:08 AM EDT Narrative Resulting Agency Comment Spec In Lab Reza Gutierrez MD MICROBIOLOGY - BLOOD ORDERABLES Performing Organization Address [facility]/ZIP Co de Phone Number [facility] [place] [address] * ABORH Recheck Status (02/10/2019 8:32 AM EDT) ABORH Recheck Order Order Placed [facility] ABORH Type Recheck Complete [facility] Blood specimen (specimen) 02/10/2019 8:32 AM EDT 02/10/2019 9:02 AM EDT Narrative Resulting Agency Comment Spec In Lab Alison Bueno MD BLOOD BANK LAB ORDER DEVAN Performing Organization Address [facility]/ZIP Co de Phone Number [facility] [place] [address] * Antibody screen (02/10/2019 8:32 AM EDT) Ab Screen Interp Negative [facility] Expires at [id number] on: 02/13/2019 [facility] Blood specimen (specimen) 02/10/2019 8:32 AM EDT 02/10/2019 9:02 AM EDT Narrative Resulting Agency Comment Spec In Lab Alison Bueno MD BLOOD BANK LAB ORDER DEVAN Performing Organization Address City/[facility]/ZIP Co de Phone Number [facility] [place] [address] * ABO/Rh Typing (02/10/2019 8:32 AM EDT) ABORH Type A Pos [facility] Blood specimen (specimen) 02/10/2019 8:32 AM EDT 02/10/2019 9:02 AM EDT Narrative Resulting Agency Comment Spec In Lab Alison Bueno MD BLOOD BANK LAB ORDER DEVAN Performing Organization Address [facility]/[place] [address] * Blood culture (02/10/2019 8:32 AM EDT) Blood Culture No growth at 5 days. [facility] Blood specimen (specimen) ANTECUBITAL REGION STRUCTURE / Unknown 02/10/2019 8:32 AM EDT 02/10/2019 9:06 AM EDT Narrative Resulting Agency Comment Spec In Lab Reza Gutierrez MD MICROBIOLOGY - BLOOD ORDERABLES Performing Organization Address [facility] Co de Phone Number [facility] [place] [address] * Anaerobic Culture (02/10/2019 5:58 AM EDT) Anaerobic Culture No anaerobic organisms isolated [facility] Joint fluid specimen (specimen) STRUCTURE OF LEFT KNEE REGION / Unknown 02/10/2019 5:58 AM EDT 02/10/2019 7:38 AM EDT Narrative Resulting Agency Comment Spec In Lab Ricky Lozoya MD MICROBIOLOGY - GENER AL ORDERABLES Performing Organization Address [facility] Co de Phone Number [facility] [place] [address] * (ABNORMAL) Joint Culture (02/10/2019 5:58 AM EDT) Joint Culture Rare Staphylococcus lugdunensis Susceptibilities previously reported (A) [facility] Gram Stain Cytocentrifuge Gram Stain performed Many Neutrophils seen No microorganisms seen. (A) [facility] Organism Staphylococcus lugdunensis(A) [facility] Joint fluid specimen (specimen) STRUCTURE OF LEFT KNEE REGION / Unknown 02/10/2019 5:58 AM EDT 02/10/2019 6:12 AM EDT Narrative Resulting Agency Comment Spec In Lab Ricky Lozoya MD MICROBIOLOGY - GENER AL ORDERABLES [facility] [place] [address] * Crystal Exam Body Fluid Knee, Left (02/10/2019 5:58 AM EDT) Crystal BF Type Knee fluid Lt [facility] Crystal BF None Seen [facility] Specimen from lower limb (specimen) 02/10/2019 5:58 AM EDT 02/10/2019 6:09 AM EDT Narrative Resulting Agency Comment Spec In Lab Reza Gutierrez MD BODY FLUIDS AND STOO LS ORDERABLES [facility] [place] [address] * Cell Count Body Fluid Knee, Left (02/10/2019 5:58 AM EDT) Spec Type BF Knee, Left [facility] Color BF Dalhart [facility] Appearance BF Cloudy [facility] WBC BF Ct 27,738 /[facility] LABORATORY Comment: Guideline listed below apply to all body fluids. Differentials on BAL specimens are performed by the Cytology lab section. When Body Fluid WBC count is greater than Zero, a smear is made and scanned. All scan information is correlated with numeric results prior to being released to patients chart. Polymorph % 94 % [facility] Comment: Polymorphonuclear cell percent and absolute values may contain Neutrophils, Eosinophils, and Basophils. Body fluid smear will be scanned manually for concordance. Mononuc % 6 % [facility] Comment: Mononuclear cell percent and absolute values may contain Lymphocytes and Monocytes. Body fluid smear will be scanned manually for concordance. Polymorph BF ABS 25,939 /[facility] LABORATORY Comment: Polymorphonuclear cell percent and absolute values may contain Neutrophils, Eosinophils, and Basophils. Body fluid smear will be scanned manually for concordance. Mononuc ABS 1,799 /[facility] LABORATORY Comment: Mononuclear cell percent and absolute values may contain Lymphocytes and Monocytes. Body fluid smear will be scanned manually for concordance. Specimen from lower limb (specimen) 02/10/2019 5:58 AM EDT 02/10/2019 6:09 AM EDT Narrative Resulting Agency Comment Spec In Lab Reza Gutierrez MD BODY FLUIDS AND STOO LS ORDERABLES Performing Organization Address City/[facility]/ZIP Co de Phone Number [facility] [place] [address] * Gold Tube HOLD (02/10/2019 5:40 AM EDT) Gold Hold Sample in lab. [facility] Blood specimen (specimen) Venous Draw / Unknown 02/10/2019 5:40 AM EDT 02/10/2019 5:45 AM EDT Ricky Lozoya MD CHEMISTRY ORDERABLES Performing Organization Address City/[facility] Co de Phone Number [facility] [place] [address] * (ABNORMAL) Differential, Automated (02/10/2019 5:40 AM EDT) Neutrophils % 81.1 % [facility] Neutr Abs (ANC) 10.29(H) 1.70 - 6.10 x10(3)/mc L [facility] Lymphocytes % 9.5 % [facility] Lymphocytes Abs 1.2 0.9 - 3.2 x10(3)/mc L [facility] Monocytes % 8.7 % [facility] Monocyte Abs 1.1(H) 0.3 - 0.9 x10(3)/mc L [facility] Eosinophils % 0.0 % [facility] Eosinophils Abs 0.0 0.0 - 0.4 x10(3)/mc L [facility] Basophils % 0.4 % [facility] Basophils Abs 0.0 0.0 - 0.1 x10(3)/mc L [facility] Immature Gran % 0.30 % [facility] Comment: Immature granulocytes(IG's)percentage and absolute count will include metamyelocytes, myelocytes, and promyelocytes. Blood smears from CBCs yielding IG's will be scanned manually for concordance. If this scan disagrees with the automated IG or if promyelocytes are noted, a manual differential will be performed. Lorrie Gran Abs 0.04 0.00 - 0.04 x10(3)/mc L [facility] Blood specimen (specimen) 02/10/2019 5:40 AM EDT 02/10/2019 5:45 AM EDT Narrative Resulting Agency Comment Spec In Lab Ricky Lozoya MD HEMATOLOGY ORDERABLE S [facility] [place] [address] * (ABNORMAL) Hemogram (02/10/2019 5:40 AM EDT) WBC 12.7(H) 4.0 - 9.5 x10(3)/[facility] LABORATORY RBC 4.62 4.00 - 5.21 x10(6)/[facility]ORY Hemoglobin 13.3 11.7 - 15.5 gm/dL [facility] Hematocrit 40.0 35.7 - 45.8 % [facility] MCV 86.6 82.6 - 94.4 fL [facility] MCH 28.8 27.1 - 32.0 pg [facility] MCHC 33.3 31.7 - 35.0 gm/dL [facility] Platelets 268 145 - 357 x10(3)/[facility] LABORATORY RDWSD 41.4 37.0 - 46.0 fL [facility] RDWCV 13.2 11.5 - 14.1 % [facility] MPV 9.6 7.6 - 12.9 fL [facility] nRBC % Auto 0.0 % [facility] nRBC Abs Auto 0.000 0.000 - 0.000 x10(3)/mcL [facility] Blood specimen (specimen) 02/10/2019 5:40 AM EDT 02/10/2019 5:45 AM EDT Narrative Resulting Agency Comment Spec In Lab Ricky Lozoya MD HEMATOLOGY ORDERABLE S Performing Organization Address [facility] Co de Phone Number [facility] [place] [address] * (ABNORMAL) APTT (02/10/2019 5:40 AM EDT) PTT 24(L) 25 - 37 sec [facility] Comment: The PTT is NOT appropriate for heparin monitoring. Use the Anti-Xa level for heparin monitoring (HEP UFH) or LMWH monitoring (HEP LMW). A PTT less than 37 seconds generally indicates adequate hemostasis. Blood specimen (specimen) 02/10/2019 5:40 AM EDT 02/10/2019 5:45 AM EDT Narrative Resulting Agency Comment Spec In Lab Reza Gutierrez MD HEMATOLOGY ORDERABLE S Performing Organization Address [facility] de Phone Number [facility] [place] [address] * (ABNORMAL) Prothrombin Time (02/10/2019 5:40 AM EDT) PT 12.6(H) 9.4 - 12.5 sec [facility] INR [address] [facility] Comment: An INR <2.0 indicates [...] be appropriate depending on clinical circumstances. Blood specimen (specimen) 02/10/2019 5:40 AM EDT 02/10/2019 5:45 AM EDT Narrative Resulting Agency Comment Spec In Lab Reza Gutierrez MD HEMATOLOGY ORDERABLE S [facility] [place] [address] * (ABNORMAL) Basic Metabolic Panel (non-fasting) (02/10/2019 5:40 AM EDT) Glucose Lvl 162 65 - 199 mg/dL [facility] Comment:Diabetes: >=200 mg/d L plus symptoms BUN 17 8 - 18 mg/dL [facility] Creatinine 1.06 0.70 - 1.20 mg/dL [facility] Sodium 139 135 - 145 mmol/L [facility] Potassium 4.3 3.5 - 5.0 mmol/L [facility] Comment: Please note: ??Patients with WBC >100,000 may have falsely elevated Potassium levels. ??For accurate Potassium quantification in these patients send serum separator tube (gold top) for subsequent determinations. ??Contact the Clinical Chemistry Laboratory if there are any questions. Chloride 102 98 - 107 mmol/L [facility] CO2 24 22 - 31 mmol/L [facility] Anion Gap 13 5 - 15 mmol/L [facility] Calcium 9.4 8.5 - 10.5 mg/dL [facility] Estimated GFR 59(L) >=60 mL/min/1. 73 m?? [facility] Comment: The eGFR was calculated using the CKD-EPI equation. As with all creatinine based estimates of kidney function, eGFR values calculated with the CKD-EPI equation are not accurate in patients with acute kidney failure, extremes of body mass or the acutely ill. [email or web address] eGFR 68 >=60 mL/min/1. 73 m?? [facility] Comment: The eGFR was calculated using the CKD-EPI equation. As with all creatinine based estimates of kidney function, eGFR values calculated with the CKD-EPI equation are not accurate in patients with acute kidney failure, extremes of body mass or the acutely ill. [email or web address] Blood specimen (specimen) 02/10/2019 5:40 AM EDT 02/10/2019 5:45 AM EDT Narrative Resulting Agency Comment Spec In Lab Reza Gutierrez MD CHEMISTRY ORDERABLES Performing Organization Address [facility]/ZIP Co de Phone Number [facility] [place] [address] * Sedimentation rate (02/10/2019 5:40 AM EDT) Sed Rate 11 0 - 20 mm/hr [facility] Blood specimen (specimen) 02/10/2019 5:40 AM EDT 02/10/2019 5:45 AM EDT Narrative Resulting Agency Comment Spec In Lab Reza Gutierrez MD HEMATOLOGY ORDERABLE S Performing Organization Address [facility] Co de Phone Number [facility] [place] [address] * (ABNORMAL) CRP, acute inflammation (02/10/2019 5:40 AM EDT) CRP 18.2(H) <=4.9 mg/L [facility] Blood specimen (specimen) 02/10/2019 5:40 AM EDT 02/10/2019 5:45 AM EDT Narrative Resulting Agency Comment Spec In Lab Reza Gutierrez MD CHEMISTRY ORDERABLES Performing Organization Address [facility] Co de Phone Number [facility] [place] [address] * SCAN DOC: IMPLANTABLE DEVICES (02/10/2019 12:00 AM EDT) Narrative 02/10/2019 12:00 AM EDT Ordered by an unspecified provider. Scanning Provider MEDIA MGR SCAN EXT O RDR/RSLT * Film Library- Storage Only DX Knee (10/29/2017 12:00 AM EST) Narrative [facility] - 02/10/2019 2:36 AM EDT This exam is auto-finalizing. It's purpose is for storage only. Karen HAWKG FILM LIBRARY OR DERABLES Performing Organization Address [facility] Co de Phone Number [facility] [place], [place] * Film Library- Storage Only DX Knee (09/07/2017 12:00 AM EST) Narrative [facility] - 02/10/2019 2:35 AM EDT This exam is auto-finalizing. It's purpose is for storage only. Karen COBB FILM LIBRARY OR DERABLES Performing Organization Address [facility] de Phone Number [facility] [place] documented in this encounter Visit Diagnoses Diagnosis Pyogenic arthritis of left knee joint, due to unspecified organism Infection associated with internal right knee prosthesis, subsequent encounter Encounter for long-term (current) use of antibiotics Infection associated with internal left knee prosthesis, subsequent encounter s/p left knee I&D, polyethylene exchange for acute PJI with Dr. Valdez 02/10/19 Postoperative anemia due to acute blood loss Acute posthemorrhagic anemia Obesity, Class II, BMI 35-39.9 Obesity, unspecified Infection associated with internal right knee prosthesis, subsequent encounter documented in this encounter Admitting Diagnoses Diagnosis Infection of prosthetic left knee joint Infection and inflammatory reaction due to internal joint prosthesis documented in this encounter Administered Medications Inactive Administered Medications - up to 3 most recent administrations Medication Order MAR Action Action Date Dose Rate Site acetaminophen (TYLENOL) tablet 1,000 mg 1,000 mg, Oral, EVERY 8 HOURS SCHEDULED, First dose on Paty 02/10/19 at 1445, Until Discontinued, Maximum dose of acetaminophen is 4000 mg from all sources in 24 hours., Routine Given 02/15/2019 5:01 AM EDT 1,000 mg Given 02/14/2019 9:00 PM EDT 1,000 mg Given 02/14/2019 3:04 PM EDT 1,000 mg aspirin EC tablet 81 mg 81 mg, Oral, 2 TIMES DAILY, First dose on Paty 02/10/19 at 2100, Until Discontinued, Routine Given 02/15/2019 8:36 AM EDT 81 mg Given 02/14/2019 8:52 PM EDT 81 mg Given 02/14/2019 8:23 AM EDT 81 mg bisacodyl (DULCOLAX) EC tablet 10 mg 10 mg, Oral, 2 TIMES DAILY PRN, Starting on Paty 02/10/19 at 1538, Until Thu02/15/19 at 1613, Constipation, DO NOT CRUSH OR OPEN Administer if needed per patient's routine or if no bowel movement within 48 hours to achieve: (1) One bowel movement every 48 hours, AND (2) without straining. If multiple PRN bowel medications ordered, start with lactulose, then oral bisacodyl, then bisacodyl suppository. Multiple medications may be given concomitantly for constipation., Routine Given 02/13/2019 1:39 PM EDT 10 mg ceFAZolin (ANCEF) 2g in dextrose 5% 100 mL 2 g, Intravenous, EVERY 8 HOURS, First dose on Paty 02/10/19 at 1600, Until Discontinued, Administer over 30 Minutes, Adjust to 4 hours from intraoperative dose. * Beta-lactam based antibiotics (eg. Ampicillin, Cefazolin, Aztreonam) should be administered within 4 hours of the preceding intraoperative dose. * Vancomycin, Fluoroquinolones, Clindamycin, Gentamicin, and Metronidazole should be administered within 8 hours of the preceding intraoperative dose., Recovery (Recovery-Hospital Unit), Indication for (Active or Suspected): Bone/Joint New Bag 02/12/2019 5:13 PM EDT 2 g 200 mL/hr New Bag 02/12/2019 8:51 AM EDT 2 g 200 mL/hr New Bag 02/11/2019 11:05 PM EDT 2 g 200 mL/hr cefTRIAXone (ROCEPHIN) 2 g vial attach to sodium chloride 0.9% 50 mL Mini-Bag Plus 2 g, Intravenous, EVERY 24 HOURS, First dose on 02/12/19 at 1915, Until Discontinued, Administer over 30 Minutes, Indication for (Active or Suspected): Bone/Joint New Bag 02/13/2019 9:09 PM EDT 2 g 100 mL/h r New Bag 02/12/2019 8:27 PM EDT 2 g 100 mL/hr cefTRIAXone (ROCEPHIN) 2 g vial attach to sodium chloride 0.9% 50 mL Mini-Bag Plus 2 g, Intravenous, EVERY 24 HOURS, First dose (after last modification) on 02/14/19 at 1600, Until Discontinued, Administer over 30 Minutes, Indication for (Active or Suspected): Bone/Joint New Bag 02/14/2019 8:52 PM EDT 2 g 100 mL/h r cefTRIAXone (ROCEPHIN) 2 g vial attach to sodium chloride 0.9% 50 mL Mini-Bag Plus 2 g, Intravenous, EVERY 12 HOURS, First dose (after last modification) on Thu02/15/19 at 0645, Until Discontinued, Administer over 30 Minutes, Indication for (Active or Suspected): Bone/Joint New Bag 02/15/2019 8:36 AM EDT 2 g 100 mL/h r diphenhydrAMINE (BENADRYL) capsule 25 mg 25 mg, Oral, NIGHTLY PRN, Starting on 02/12/19 at 1721, Until Thu02/14/19 at 1828, Itching, Sleep, Routine Given 02/14/2019 12:08 PM EDT 25 mg Given 02/13/2019 5:52 PM EDT 25 mg Given 02/12/2019 8:34 PM EDT 25 mg diphenhydrAMINE (BENADRYL) capsule 25 mg 25 mg, Oral, 2 TIMES DAILY PRN, Starting on Thu02/14/19 at 1830, Until Thu02/15/19 at 1613, Itching, Sleep, Routine fentaNYL (PF) 50mcg/mL injection 50 mcg, Intravenous, EVERY 5 MIN PRN, Starting on Paty 02/10/19 at 1038, Until Paty 02/10/19 at 1537, Pain, or prior to injection of local anesthetic., Hold for respiratory rate less than 8 breaths per minute. (maximum dose 200 mcg), Day of Surgery (Day of Procedure), Routine Given 02/10/2019 11:03 AM EDT 50 mcg gabapentin (NEURONTIN) capsule 300 mg 300 mg, Oral, NIGHTLY, First dose on 02/12/19 at 2100, Until Discontinued, Routine Given 02/14/2019 8:52 PM EDT 300 mg Given 02/13/2019 9:07 PM EDT 300 mg Given 02/12/2019 8:26 PM EDT 300 mg gabapentin (NEURONTIN) capsule 600 mg 600 mg, Oral, NIGHTLY, 2 doses, First dose on Paty 02/10/19 at 2100, Last dose on Thu02/11/19 at 2100, Routine Given 02/11/2019 8:31 PM EDT 600 mg Given 02/10/2019 9:38 PM EDT 600 mg HYDROmorphone (DILAUDID) injection 0.2-0.4 mg 0.2-0.4 mg, Intravenous, EVERY 5 MIN PRN, Starting on Paty 02/10/19 at 1318, Until Paty 02/10/19 at 1537, Pain, Give 0.2 mg every 5 minutes PRN for mild to moderate pain (1-5) Give 0.4 mg every 5 minutes PRN for moderate to severe pain (6-10). Hold for respiratory rate less than 10 per minute. Maximum dose 4 mg over one hour. If multiple pain medications are ordered, start with hydromorphone or morphine and use fentanyl for breakthrough pain., PACU Recovery, Routine Given 02/10/2019 2:13 PM EDT 0.4 mg ketorolac (TORADOL) injection 15 mg 15 mg, Intravenous, EVERY 8 HOURS PRN, Starting on Paty 02/10/19 at 1538, Until 02/12/19 at 0337, Pain, Routine Given 02/11/2019 11:09 PM EDT 15 mg Given 02/11/2019 12:38 PM EDT 15 mg lisinopril (PRINIVIL;ZESTRIL) tablet 30 mg 30 mg, Oral, DAILY, First dose on Thu02/11/19 at 0900, Until Discontinued, Hold for SBP <130, Routine Given 02/15/2019 8:33 AM EDT 30 mg Given 02/13/2019 8:13 AM EDT 30 mg midazolam (PF) (VERSED) injection 1 mg 1 mg, Intravenous, EVERY 5 MIN PRN, Starting on Paty 02/10/19 at 1038, Until Paty 02/10/19 at 1537, Sleep, or prior to injection of local anesthetic, Hold for delirium/agitation. (Maximum dose 5 mg)., Day of Surgery (Day of Procedure), Routine Given 02/10/2019 11:06 AM EDT 1 mg Given 02/10/2019 11:03 AM EDT 1 mg multivitamin with minerals (THERA-M) tablet 1 tablet 1 tablet, Oral, DAILY, First dose on Paty 02/10/19 at 1600, Until Discontinued, Routine Given 02/15/2019 8:36 AM EDT 1 tablet Given 02/14/2019 8:23 AM EDT 1 tablet Given 02/13/2019 8:13 AM EDT 1 tablet ondansetron (ZOFRAN) injection 4 mg 4 mg, Intravenous, EVERY 8 HOURS PRN, Starting on Paty 02/10/19 at 1538, Until Tu02/15/19 at 1613, Nausea, May repeat times one in 30 minutes if ineffective. If multiple antiemetics are ordered, use ondansetron first, Recovery (Recovery-Hospital Unit) ondansetron (ZOFRAN) tablet 4 mg 4 mg, Oral, EVERY 8 HOURS PRN, Starting on Paty 02/10/19 at 1538, Until Thu02/15/19 at 1613, Nausea, Vomiting, If multiple antiemetics are ordered, use ondansetron first. PO Preferred. If patient unable to take PO, may give IV if ordered. May repeat times one in 45 minutes if ineffective., Recovery (Recovery-Hospital Unit), Routine oxyCODONE (ROXICODONE) immediate release tablet 5-10 mg 5-10 mg, Oral, EVERY 4 HOURS PRN, Starting on Paty 02/10/19 at 1421, Until Thu02/15/19 at 1613, Pain, Routine Given 02/14/2019 10:45 PM EDT 10 mg Given 02/14/2019 5:49 PM EDT 10 mg Given 02/14/2019 10:28 AM EDT 10 mg pantoprazole (PROTONIX) tablet 20 mg 20 mg, Oral, DAILY, First dose on Paty 02/10/19 at 1600, Until Discontinued, DO NOT CRUSH OR OPEN Given 02/15/2019 8:36 AM EDT 20 mg Given 02/14/2019 8:23 AM EDT 20 mg Given 02/13/2019 8:13 AM EDT 20 mg polyethylene glycol (MIRALAX) packet 17 g 17 g, Oral, 2 TIMES DAILY, First dose on Paty 02/10/19 at 2100, Until Discontinued, Routine Given 02/13/2019 8:12 AM EDT 17 g Given 02/12/2019 8:27 PM EDT 17 g Given 02/12/2019 8:52 AM EDT 17 g senna-docusate (PERICOLACE) 8.6-50 mg per tablet 2 tablet 2 tablet, Oral, 2 TIMES DAILY, First dose on Paty 02/10/19 at 2100, Until Discontinued, Routine Given 02/15/2019 8:32 AM EDT 2 tablets Given 02/14/2019 8:52 PM EDT 2 tablets Given 02/14/2019 8:22 AM EDT 2 tablets sodium chloride 0.9 % flush 5 mL 5 mL, Intravenous, 2 TIMES DAILY, First dose on Paty 02/10/19 at 2100, Until Discontinued, Recovery (Recovery-Hospital Unit), Routine Given 02/15/2019 8:37 AM EDT 5 mLs Given 02/14/2019 8:57 PM EDT 5 mLs Given 02/14/2019 8:24 AM EDT 5 mLs sodium chloride 0.9% infusion 1,000 mL, at 100 mL/hr, Intravenous, CONTINUOUS, Starting on Paty 02/10/19 at 1445, Until Thu02/11/19 at 0635, Recovery (Recovery-Hospital Unit) New Bag 02/10/2019 2:27 PM EDT 1,000 mLs 100 mL /hr vancomycin (VANCOCIN) 3,000 mg in sodium chloride 0.9% 560 mL 3,000 mg (3 g), Intravenous, at 186.7 mL/hr, ONCE, 1 dose, On Thu02/11/19 at 1315, Maximum infusion rate is 1 gram/hour. If flushing of the face, neck, upper body, arms, and/or back occurs decrease infusion rate by 50% to reduce the severity of symptoms. This medication may have an associated drug lab level. Please see MAR for scheduled level. Warning Vesicant/Irritant Medication , Routine New Bag 02/11/2019 4:40 PM EDT 3,000 mg 186.7 mL/hr documented in this encounter Active and Recently Administered Medications Times are shown in EDT. Scheduled Medication Order 02/13/2019 02/14/2019 02/15/2019 acetaminophen (TYLENOL) tablet 1,000 mg 1,000 mg, Oral, EVERY 8 HOURS SCHEDULED, First dose on Paty 02/10/19 at 1445, Until Discontinued, Maximum dose of acetaminophen is 4000 mg from all sources in 24 hours., Routine 0636 (Given - Provider: Edwin Zimmerman RN)1320 (Given - Provider: Daniel Oscar RN)2107 (Given - Provider: Mita Suarez RN) 0533 (Given - Provider: Mita Suarez RN)1504 (Given - Provider: Liliana Cisneros RN)2100 (Given - Provider: Mita Suarez RN) 0501 (Given - Provider: Mita Suarez RN)1400 (Due) aspirin EC tablet 81 mg 81 mg, Oral, 2 TIMES DAILY, First dose on Paty 02/10/19 at 2100, Until Discontinued, Routine 0813 (Given - Provider: Rae Hawkins RN)2106 (Given - Provider: Mita Suarez RN) 08 (Given - Provider: Liliana Cisneros RN)2051 (Given - Provider: Mita Suarez RN) 08 (Given - Provider: Liliana Cisneros RN) cefTRIAXone (ROCEPHIN) 2 g vial attach to sodium chloride 0.9% 50 mL Mini-Bag Plus (CANCELED) 2 g, Intravenous, EVERY 24 HOURS, First dose on 02/12/19 at 1915, Until Discontinued, Administer over 30 Minutes, Indication for (Active or Suspected): Bone/Joint 2108 (New Bag - Provider: Mita Suarez RN)2138 (Stopped - Provider: Mita Suarez RN) cefTRIAXone (ROCEPHIN) 2 g vial attach to sodium chloride 0.9% 50 mL Mini-Bag Plus (CANCELED) 2 g, Intravenous, EVERY 24 HOURS, First dose (after last modification) on Thu02/14/19 at 1600, Until Discontinued, Administer over 30 Minutes, Indication for (Active or Suspected): Bone/Joint 2051 (New Bag - Provider: Mita Suarez RN)2121 (Stopped - Provider: Mita Suarez RN) cefTRIAXone (ROCEPHIN) 2 g vial attach to sodium chloride 0.9% 50 mL Mini-Bag Plus 2 g, Intravenous, EVERY 12 HOURS, First dose (after last modification) on Thu02/15/19 at 0645, Until Discontinued, Administer over 30 Minutes, Indication for (Active or Suspected): Bone/Joint 835 (New Bag - Provider: Liliana M Cisneros, RN - Comment: To administer at 0800 and 1999 per comp field case manager for home scheduling convenience)905 (Stopped - Provider: Liliana Cisneros RN) gabapentin (NEURONTIN) capsule 300 mg(Linked Group 1) 300 mg, Oral, NIGHTLY, First dose on Thu02/12/19 at 2100, Until Discontinued, Routine 2106 (Given - Provider: iMta Suarez RN) 2051 (Given - Provider: Mita Suarez RN) lisinopril (PRINIVIL;ZESTRIL) tablet 30 mg 30 mg, Oral, DAILY, First dose on Thu02/11/19 at 0900, Until Discontinued, Hold for SBP <130, Routine 08 (Given - Provider: Rae Hawkins RN) 08 (Not Given - Provider: Liliana Cisneros RN - Reason: Order parameters not met - Comment: BP 113/76. Systolic < 130) 08 (Given - Provider: Liliana Cisneros RN - Comment: BP 133/83) multivitamin with minerals (THERA-M) tablet 1 tablet 1 tablet, Oral, DAILY, First dose on Paty 02/10/19 at 1600, Until Discontinued, Routine 08 (Given - Provider: Rae Hawkins RN) 0823 (Given - Provider: Liliana Cisneros RN) 0836 (Given - Provider: Liliana Cisneros RN) pantoprazole (PROTONIX) tablet 20 mg 20 mg, Oral, DAILY, First dose on Paty 02/10/19 at 1600, Until Discontinued, DO NOT CRUSH OR OPEN 0813 (Given - Provider: Rae Hawkins RN) 0823 (Given - Provider: Liliana Cisneros RN) 0836 (Given - Provider: Liliana Cisneros RN) polyethylene glycol (MIRALAX) packet 17 g 17 g, Oral, 2 TIMES DAILY, First dose on Paty 02/10/19 at 2100, Until Discontinued, Routine 0812 (Given - Provider: Rae Hawkins RN)2099 (Not Given - Provider: Mita Suarez RN - Reason: Patient/family refused) 08 (Not Given - Provider: Lilinaa Cisneros RN - Reason: Patient/family refused)2099 (Not Given - Provider: Mita Suarez RN - Reason: Patient/family refused) 0900 (Not Given - Provider: Liliana Cisneros RN - Reason: Patient/family refused) senna-docusate (PERICOLACE) 8.6-50 mg per tablet 2 tablet 2 tablet, Oral, 2 TIMES DAILY, First dose on Paty 02/10/19 at 2100, Until Discontinued, Routine 0813 (Given - Provider: Rae Hawkins RN)210 (Given - Provider: Mita Suarez RN) 08 (Given - Provider: Liliana Cisneros RN)2051 (Given - Provider: Mita Suarez RN) 0832 (Given - Provider: Liliana Cisneros RN) sodium chloride 0.9 % flush 5 mL 5 mL, Intravenous, 2 TIMES DAILY, First dose on Paty 02/10/19 at 2100, Until Discontinued, Recovery (Recovery-Hospital Unit), Routine 0812 (Given - Provider: Rae Hawkins RN)210 (Given - Provider: Mita Suarez RN) 08 (Given - Provider: Liliana Cisneros RN)2056 (Given - Provider: Mita Suarez RN) 0837 (Given - Provider: Liliana Cisneros RN) PRN Medication Order 02/13/2019 02/14/2019 02/15/2019 bisacodyl (DULCOLAX) EC tablet 10 mg 10 mg, Oral, 2 TIMES DAILY PRN, Starting on Paty 02/10/19 at 1538, Until Thu02/15/19 at 1613, Constipation, DO NOT CRUSH OR OPEN Administer if needed per patient's routine or if no bowel movement within 48 hours to achieve: (1) One bowel movement every 48 hours, AND (2) without straining. If multiple PRN bowel medications ordered, start with lactulose, then oral bisacodyl, then bisacodyl suppository. Multiple medications may be given concomitantly for constipation., Routine 1339 (Given - Provider: Rae Hawkins RN) bisacodyl (DULCOLAX) suppository 10 mg 10 mg, Rectal, DAILY PRN, Starting on Paty 02/10/19 at 1538, Until Tue 14/19 at 1613, Constipation, Administer if needed per patient's routine or if no bowel movement within 48 hours to achieve: (1) One bowel movement every 48 hours, AND (2) without straining. If multiple PRN bowel medications ordered, start with lactulose, then oral bisacodyl, then bisacodyl suppository. Multiple medications may be given concomitantly for constipation., Routine celecoxib (CeleBREX) capsule 200 mg 200 mg, Oral, DAILY PRN, Starting on Thu02/11/19 at 0000, Until Thu02/15/19 at 1613, Pain, Routine diphenhydrAMINE (BENADRYL) capsule 25 mg (CANCELED) 25 mg, Oral, NIGHTLY PRN, Starting on 02/12/19 at 1721, Until 02/14/19 at 1828, Itching, Sleep, Routine 1752 (Given - Provider: Rae Hawkins RN - Comment: patient request) 1208 (Given - Provider: Sb Bueno RN - Comment: iv tape is itching) diphenhydrAMINE (BENADRYL) capsule 25 mg 25 mg, Oral, 2 TIMES DAILY PRN, Starting on 02/14/19 at 1830, Until Thu02/15/19 at 1613, Itching, Sleep, Routine lidocaine (XYLOCAINE) 10 mg/mL (1 %) injection 3 mg 3 mg (0.3 mL), Subcutaneous, ONCE PRN, 1 dose, Starting on Paty 02/10/19 at 1538, Until Thu02/15/19 at 1613, for discomfort with PIV insertion, Recovery (Recovery-Hospital Unit), Routine ondansetron (ZOFRAN) injection 4 mg(Linked Group 2) 4 mg, Intravenous, EVERY 8 HOURS PRN, Starting on Paty 02/10/19 at 1538, Until Thu02/15/19 at 1613, Nausea, May repeat times one in 30 minutes if ineffective. If multiple antiemetics are ordered, use ondansetron first, Recovery (Recovery-Hospital Unit) ondansetron (ZOFRAN) tablet 4 mg(Linked Group 2) 4 mg, Oral, EVERY 8 HOURS PRN, Starting on Paty 02/10/19 at 1538, Until Thu02/15/19 at 1613, Nausea, Vomiting, If multiple antiemetics are ordered, use ondansetron first. PO Preferred. If patient unable to take PO, may give IV if ordered. May repeat times one in 45 minutes if ineffective., Recovery (Recovery-Hospital Unit), Routine oxyCODONE (ROXICODONE) immediate release tablet 5-10 mg 5-10 mg, Oral, EVERY 4 HOURS PRN, Starting on Paty 02/10/19 at 1421, Until Thu02/15/19 at 1613, Pain, Routine 0227 (Given - Provider: Edwin Zimmerman, RN)1320 (Given - Provider: Daniel Oscar, RN)1748 (Given - Provider: Rae Hwakins, ODIN)2224 (Given - Provider: Mita Suarez, ODIN) 1028 (Given - Provider: Ricky Foster)1749 (Given - Provider: Liliana Cisneros, RN)2245 (Given - Provider: Elvia Flores RN) sodium chloride 0.9 % flush 5-20 mL 5-20 mL, Intravenous, EVERY 1 MIN PRN, Starting on Paty 02/10/19 at 1538, Until Thu02/15/19 at 1613, flush, Flush pertains to all indwelling lines. Flush per protocol found in the job aid using the link provided on this medication record., Recovery (Recovery-Hospital Unit), Routine Linked Groups Order Group 1: gabapentin (NEURONTIN) capsule 600 mg (COMPLETED) 600 mg, Oral, NIGHTLY, 2 doses, First dose on Paty 02/10/19 at 2100, Last dose on Thu02/11/19 at 2100, Routine Followed by gabapentin (NEURONTIN) capsule 300 mgJump to med 300 mg, Oral, NIGHTLY, First dose on Thu02/12/19 at 2100, Until Discontinued, Routine Group 2: ondansetron (ZOFRAN) tablet 4 mgJump to med 4 mg, Oral, EVERY 8 HOURS PRN, Starting on Paty 02/10/19 at 1538, Until Thu02/15/19 at 1613, Nausea, Vomiting, If multiple antiemetics are ordered, use ondansetron first. PO Preferred. If patient unable to take PO, may give IV if ordered. May repeat times one in 45 minutes if ineffective., Recovery (Recovery-Hospital Unit), Routine Or ondansetron (ZOFRAN) injection 4 mgJump to med 4 mg, Intravenous, EVERY 8 HOURS PRN, Starting on Paty 02/10/19 at 1538, Until 02/15/19 at 1613, Nausea, May repeat times one in 30 minutes if ineffective. If multiple antiemetics are ordered, use ondansetron first, Recovery (Recovery-Hospital Unit) documented in this encounter Care Teams Oral And Maxillofacial Surgery Relationship Specialty Start Date End Date Sari Hay MD [address] [facility] [address] [place] [address] PCP - General 05/21/11 documented as of this encounter
--- OUTSIDE RECORDS SUMMARY | 2024-04-26 15:50 | XMS_ITS | Encounter Summary ---
Author Organization [facility] Address [facility] [place] [address] Care Team Providers Care Supervisor Assembly And Packing Name Role Phone Sari Hay MD Primary Care Provider [phone] Reason for Visit * Reason Onset Date Comments Medication Refill 03/30/2019 Encounter Details Date Type Department Care Team (Late st Contact Info) Description 03/30/2019 Refill [place] [address] Ellis Saini MD [facility] [place] [address] [facility] current use of antibiotics Social History Tobacco [...] as of this encounter Visit Diagnoses Diagnosis supervisor intermediates current use of antibiotics Encounter for long-term (current) use of antibiotics documented in this encounter Care Teams Supervisor Assembly And Packing Relationship Specialty Start Date End Date Sari Hay MD [address] [place], [place] [id number] PCP - General 8/17/11 documented as of this encounter
--- OUTSIDE RECORDS SUMMARY | 2024-04-26 15:50 | XMS_ITS | Encounter Summary ---
[facility] Organization [facility] Address [facility] [place] [address] Care Team Providers Care Director Of Market Analysis Name Role Phone Sari Hay MD Primary Care Provider [phone] Reason for Visit * Reason Comments Follow-up Aftercare, Senior Patient Account Representative Use Meds * Consultation (Routine) - Specialty Diagnoses / Procedures Referred By Emmanuel cisneros Referred To Contact Infectious Diseases Diagnoses Pyogenic arthritis of left knee joint, due to unspecified organism Infection associated with internal right knee prosthesis, subsequent encounter Encounter for long-term (current) use of antibiotics Alma Matthew MD [facility] [place] [address] Alma Matthew MD [facility] [place] [address] Referral ID Status Reason Start Date Expiration Date V isits Requested Visits Authorized [id number] Assume Subset of Care 02/15/2019 02/15/2020 1 1 Encounter Details Date Type Department Care Team (Late st Contact Info) Description 03/03/2019 10:00 AM EDT Office [place] [phone] Naina King DO [facility] [place] [address] alf current use of antibiotics; Medication management; Infection associated with internal left knee prosthesis, subsequent encounter; Staphylococcal infection Social History Tobacco Use Types Packs/Day Years [...] Sign Reading Time Taken Comments Blood Pressure 127/83 03/03/2019 10:11 AM EDT Pulse 83 03/03/2019 10:11 AM EDT Temperature 36.9 ??C (98.5 ??F) 03/03/2019 1 0:11 AM EDT Respiratory Rate - - Oxygen Saturation 98% 03/03/2019 10: 11 AM EDT RA Inhaled Oxygen Concentration - - Weight 125.4 kg (276 lb 6.4 oz) 019 10:11 AM EDT Height - - Body Mass Index 39.66 02/10/2019 10:51 AM EDT documented in this encounter Progress Notes * Naina King, - 03/03/2019 10:00 AM EDT Infectious Disease OPAT progress note CC: On ceftriaxone for left knee PJI HPI: 53 year-old woman with history of L TKA (09/2017), followed by more recent arthroscopic surgery on 01/18 and aspirate on 02/09 for knee swelling who was recently admitted to [facility] for prosthetic joint infection s/p poly-swap 02/10/2019. Preoperative knee aspiration with 27K WBCs, 94% neutrophils. In the OR they noted well fixed components. Single-stage procedure decision was made based on acuity of presentation and well fixed components. All operative cultures grew Staphylococcus lugdunensis, including sonicated of the left prosthesis. She was recommended a 6 week course with ceftriaxone 2g IV bid (weight >120kg) and rifampin 300 mg po bid and plan for further discussion of oral/suppressive regimen in outpatient setting. Since discharge she has been doing well. Noticed some tingling with antibiotic infusion over past 2-3 days. No fevers, chills, nausea, vomiting, diarrhea. No rashes. No side effects noted from eitherantibiotic and has been compliant with therapy. Since her LFTS came back elevated she cut back on tylenol. No abdominal pain. Knee pain has improved- no erythema or tenderness, well healed surgical wo und. Working with PT and doing well. Scheduled to see orthopedics on 03/09 and ID again on 03/[address] Burton ROS Reviewed in detail. Denies fevers, chills, nausea vomiting, diarrhea, chest pain, dyspnea, cough. No headache, dysuria or abdominal monge. No diaphoresis or weight loss. Histories, medications and allergies reviewed VS: T: 36.9 HR: 83 BP:127/83 98% RA Gen: Well appearing, no acute distress ENT: no scleral icterus Respiratory: CTAB CVS: RRR Abd; soft, non-tender Left knee well healing surgical site Ext: no edema Neuro: Alert, no focal deficits Labs- reviewed 02/28: wbc 5.9, platelets of 393. 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 She underwent single stage procedure on 02/10 given acuity of presentationand well fixed hardware. She is currently on ceftriaxone 2g IV bid (weight >120kg) and rifampin 300 mg po bid and tolerating therapy fine. Knee is healing well with no symptoms of infection. We reviewed the outcomes data in the Journal of Antimicrobial chemotherapy doi:10.1093/yadira/ubk917 and 4 weeks of IV therapy for Staphylococcal PJI infections were associated with >80% treatment success rate. Therefore, we have recommended a 4 week course of IV antibiotics with current regimen ceftriaxone and rifampin through 03/15/19 then transition to oral ciprofloxacin 750 mg po bid with oral rifampin 300 mg bid for a total of 6 months of therapy to treat PJI from Staphylococcus of prosthetic knee. We have provided counseling on antibiotic side effects including diarrhea and tendinopathies. Herqtc is borderline in the office at 452 and once ciprofloxacin is started on 03/16/19 would recommenda repeat EKG for monitoring while on quinolone therapy. We will plan for ID follow-up to ensure sheis tolerating oral regimen and she is currently scheduled with Dr. Burton on 03/16/19. -Continue ceftriaxone 2g IV bid and rifampin 300 mg po bid through 03/15/19 (4 weeks of combination IV therapy) -Transition to oral ciprofloxacin 750 (weight based dosing to optimize penetration to bone) with rifampin 300 mg po bid on 03/16/19 in combination for a total of 6 months of therapy from 02/15 (start date of combination therapy) -Weekly labs while on OPAT, CRP ordered for next lab draw today -Pull PICC line with VNA after last dosing on 03/15- if she is here for appointment on 03/16 PICC could be pulled then -Once on ciprofloxacin, repeat EKG for qtc monitoring -Follow up in ID clinic, counseled to call if any side effects/problems at any time Patient seen and examined with Dr. Eduarda King DO, ID fellow * Michael Lerner MD - 03/03/2019 10:00 AM EDT Attending??Attestation:??I saw and examined this patient. I have reviewed and agree with the findings and plan of care as documented in Dr. King's??note. The assessment and plan were formulated in discussion with me. ?? Michael Lerner MD documented in this encounter Plan of Treatment Not on file documented as of this encounter Procedures Procedure Name Priority Date/Time Associated Diagnosis Comments EKG 12-LEAD Routine 03/03/2019 11:47 AM EDT vermin exterminator current use of antibiotics documented in this encounter Results * EKG 12 Lead (03/03/2019 11:47 AM EDT) Ventricular rate 69 BPM MUSE SYSTEM Atrial Rate 69 BPM MUSE SYSTEM P-R Interval 188 ms MUSE SYSTEM QRS Duration 80 ms MUSE SYSTEM Q-T Interval 422 ms MUSE SYSTEM QTC Calculated (Bezet) 452 ms MUSE SYSTEM Calculated P [place] 41 degrees MUSE SYSTEM Calculated R [place] 59 degrees MUSE SYSTEM Calculated T [place] 56 degrees MUSE SYSTEM INTERPRETATION Normal sinus rhythm Nonspecific ST abnormality Abnormal ECG No previous ECGs available Confirmed by CATHERINE, ??DELPHINE MELGAR ([id number]) on 03/04/2019 6:29:58 AM MUSE SYSTEM 03/03/2019 11:4 7 AM EDT 03/04/2019 6:29 AM EDT Michael Lerner MD ECG ORDERABLES MUSE SYSTEM documented in this encounter Visit Diagnoses Diagnosis alf current use of antibiotics Encounter for long-term (current) use of antibiotics Medication management Encounter for long-term (current) use of other medications Infection associated with internal left knee prosthesis, subsequent encounter Staphylococcal infection Unspecified staphylococcus infection in conditions classified elsewhere and of unspecified site documented in this encounter Care Teams Director Of Market Analysis Relationship Specialty Start Date End Date Sari Hay MD [address] [facility] [address] [place] [address] PCP - General 05/21/11 documented as of this encounter
--- OUTSIDE RECORDS SUMMARY | 2024-04-26 15:50 | XMS_ITS | Encounter Summary ---
Author Organization [facility] [address] Care Team Providers Care Cotton Ball Machine Tender Name Role Phone Sari Hay MD Primary Care Provider [phone] Encounter Details Date Type Department Care Team (Late st Contact Info) Description 03/22/2019 Orders Only [place] [address] Renato Burton MD [facility] [place] [address] Neutropenia, drug-induced Social History Tobacco Use Types Packs/Day Years [...] as of this encounter Visit Diagnoses Diagnosis Neutropenia, drug-induced Drug induced neutropenia documented in this encounter Care Teams Cotton Ball Machine Tender Relationship Specialty Start Date End Date Sari Hay MD [address] [place], [place] [id number] PCP - General 05/21/11 documented as of this encounter
--- OUTSIDE RECORDS SUMMARY | 2024-04-26 15:50 | XMS_ITS | Encounter Summary ---
Author Organization [place] [address] Care Team Providers Care Methods Analyst Name Role Phone Sari Hay MD Primary Care Provider [phone] Encounter Details Date Type Department Care Team (Late st Contact Info) Description 03/11/2019 Notes [place] [phone] Elzbieta Carter, RN Social History Tobacco Use Types Packs/Day [...] as of this encounter Progress Notes * Elzbieta Carter RN - 03/11/2019 12:30 PM EDT OPAT: Order / Recommendation for Post Discharge IV Antibiotic Management To: Alma Matthew Specialty: ID Diagnosis: Left Knee PJI s/p Polyswap Microorganisms being treated: Staph lugdunensis Antibiotic Allergies: No Antibiotic Allergies Antibiotic (one line for each ABx): Ceftriaxone 2 gms IV q12h Antibiotic (one line for each ABx): Rifampin 300 mg po bid Start date: 02/10/2019 Anticipated stop date: 03/15/2019 Labs: Every Thursday: CBC, CMP (Inflammatory CRP Q Thursday) Last documented weight (kg): 125.6 kg Last documented height (cm): 177.8 cm Responsible Attending: Other Other Provider: Alma Matthew MD Call received from Ms. Yoko Eugene with concerns of tingling in both arms she has noticed the past 2 days when the Ceftriaxone is infusing. She also verbalized a lengthy explanation of chest discomfort she experienced Thursday evening into morning which precipitated a visit to the ED at [facility] ([facility] I requested that a faxed copy of the ED visit be sent to the ID Clinic for Dr. Michael Lerner to review. After reviewing the notes from [facility], Dr. Lerner requested that I remind Yoko to take Tylenol instead of Aleve, which I did. Yoko verbalized that she hadn't been taking the Aleve since her visit to the ED and that she was taking Pepcid which was helping. In reference to the tingling she felt during the IV ABX administration, she verbalized that this feeling of pins and needles dissipated after the medication was completed. Yoko told me that her VNA nurse was there during my call and the PICC line was infusing well and looked benign. Dr. Lerner recommended that she continue the ABX course until her end date on 03/15/19. Yoko has an appointment with Dr. Burton on 03/16/19 @ 09:30. Elzbieta Carter, RN, OPAT Pager [phone] documented in this encounter Plan of Treatment Not on file documented as of this encounter Visit Diagnoses Not on filedocumented in this encounter Care Teams Methods Analyst Relationship Specialty Start Date End Date Sari Hay MD [address] [place] [address] PCP - General 05/21/11 documented as of this encounter
--- OUTSIDE RECORDS SUMMARY | 2024-04-26 15:50 | XMS_ITS | Encounter Summary ---
Author Organization [facility] Address [facility] [place] [address] Care Team Providers Care Cotton Buyer Name Role Phone Sari Hay MD Primary Care Provider [phone] Encounter Details Date Type Department Care Team (Latest Contact Info) Description 03/09/2019 1:28 PM EDT - 03/09/2019 11:59 PM EDT Hospital Encounter XRay at [address] [place] [address] Infection associated with internal right knee prosthesis, subsequent encounter Discharge Disposition: Home Social History [...] Dispensed Refills Start Date End Date gabapentin (NEURONTIN) 300 mg Capsule Take 1-2 capsules by mouth nightly as needed. 60 capsule 12 03/09/2019 05/18/2019 ciprofloxacin (CIPRO) 750 mg Tablet Take 1 tablet by mouth 2 times daily. 30 tablet 3 03/16/2019 03/30/2019 rifAMPin (RIFADIN) 300 mg Capsule Take 1 capsule by mouth 2 times daily. 28 capsule 2 02/18/2019 04/04/2019 cefTRIAXone (ROCEPHIN) 1 gram Recon Soln Inject 2,000 mg into the vein 2 times daily for 38 days. 1500 mL 02/15/2019 03/25/2019 gabapentin (NEURONTIN) 300 mg Capsule Take 1 capsule by mouth nightly. 30 capsule 02/15/2019 05/18/2019 pantoprazole (PROTONIX) 20 mg Tablet, Delayed Release [...] XR KNEE AP & LAT LEFT Routine 03/09/2019 1:40 PM EDT Infection associated with internal right knee prosthesis, [...] below. Karen Nixon MD IMG DX ORDERABLES documented in this encounter Visit Diagnoses Diagnosis Infection associated with internal right knee prosthesis, subsequent encounter documented in this encounter Care Teams Cotton Buyer Relationship Specialty Start Date End Date Sari Hay MD [facility] [address] [place] [address] PCP - General 05/21/11 documented as of this encounter
--- OUTSIDE RECORDS SUMMARY | 2024-04-26 15:50 | XMS_ITS | Encounter Summary ---
Author Organization [facility] Address [facility] [place] [address] Care Team Providers Care Manager Epic Name Role Phone Sari Hay MD Primary Care Provider [phone] Encounter Details Date Type Department Care Team (Late st Contact Info) Description 03/19/2019 Notes [place] [address] Renato Burton MD [facility] INFECTIOUS [place] [address] Social History Tobacco Use Types Packs/Day Years [...] as of this encounter Progress Notes * Renato Burton MD - 03/19/2019 1:57 PM EDT Infectious Diseases Outpatient Note We are following this 53 y.o. 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 Her history is detailed in prior ID notes, most recently an outpatient note by Dr. King, dated March 03. Ms. Eugene underwent debridement and retention of a left knee prosthesis on February 10. Cultures yielded S. lugdunensis. Following initial empiric therapy she was switched to ceftriaxone and discharged on this drug; the plan was to treat with ceftriaxone through March 15 and then have her switchto an oral regimen of ciprofloxacin plus rifampin, to complete a six-month course. On March 14, a routine CBC showed a newly-depressed ANC of 390 cells. I calls Ms. Eugene the next morning and had her discontinue ceftriaxone, under the assumption that this was the etiology of neutropenia. Her last dose of ceftriaxone was on the morning of March 15, and she started taking ciprofloxacin plus rifampin that day. She felt well at the time. A repeat CBC, on March 18, showed an ANC of 0 cells. I spoke with Ms. Eugene on the phone, at which time she was just arriving in [place], [place], to visit with family. She reported feeling entirely well, without fever or other systemic or local signs or symptoms of infection. I discussed the case informally with the Hematology attending. Treatement with filgrastim was suggested as an option, to speed up marrow recovery following discontinuation of ceftriaxone. With Ms. Eugene being in [place], this would have been a challenging proposition, especially over the weekend. She informed me that she would be staying with her sister, whose son, who lives nearby, is an Emergency Room physician -- Dr. Aaron Duvall. I spoke with Dr. Duvall on the phone and explained the situation to him. He will look after the patient and insure that she gets prompt medical attention, should shedevelop even a suggestion of infection. Ms. Eugene will remain on ciprofloxacin plus rifampin. We will arrange for a repeat CBC, either in [place] or locally (depending on when she returns to the area), early next week. I asked her to call [facility] to speak with the ID physician on-call should she have questions or concerns. documented in this encounter Plan of Treatment Not on file documented as of this encounter Visit Diagnoses Not on filedocumented in this encounter Care Teams Manager Epic Relationship Specialty Start Date End Date Sari Hay MD [address] [place] [address] PCP - General 05/21/11 documented as of this encounter
--- OUTSIDE RECORDS SUMMARY | 2024-04-26 15:50 | XMS_ITS | Encounter Summary ---
Author Organization [facility] Address [facility] [place] [address] Care Team Providers Care Carbon Furnace Operator Helper Name Role Phone Sari Hay MD Primary Care Provider [phone] Reason for Visit * Reason Comments Follow Up Surgery Left knee I&D, polye thylene exchange for acute PJI with Dr. Valdez 02/10/19 Encounter Details Date Type Department Care Team (Late st Contact Info) Description 05/18/2019 2:30 PM EDT Office Visit [place] [phone] Rod Valdez MD [facility] [place] [address] Status post left knee replacement Social History [...] Sign Reading Time Taken Comments Blood Pressure 135/94 05/18/2019 2:48 PM EDT Pulse 65 05/18/2019 2:48 PM EDT Temperature - - Respiratory Rate - - Oxygen Saturation - - Inhaled Oxygen Concentration - - Weight 113.9 kg (251 lb) 05/18/2019 2:48 PM EDT reported Height 177.8 cm (5' 10) 05/18/2019 2:48 PM EDT reported Body Mass Index 36.01 05/18/2019 2:48 PM EDT documented in this encounter Progress Notes * Teressa Taylor PA - 05/18/2019 2:30 PM EDT Arthroplasty/Orthopaedic History: 1. Left TKA 2. Left TKA polyswap 02/10/19 ([place]) HPI: Sissy Eugene is a very pleasant 53 y.o. year-old female and is now 3 month post left totalknee revision. She continues to work with PT on her IT band and active extension. She is continuingto struggle with sleep. She finds that it takes a good hour to fall asleep and then she will wake 30 minutes later due to zinging pain in her knee. She readjusts then needs another hour to fall asleep for 30 minutes. Around 3 am she is able to fall asleep and stay asleep. She is currently taking (2) 300 mg Gabapentin around 8:00 however occasionally will need to take a third around 4:00 am to help her sleep. She has tried Melatonin, Tylenol PM, as well a prescription of Ambien which she foundnot helpful. She discontinued both. . ROS: Denies: fever, chills, night sweats, nausea, or vomiting BP (!) 135/94 (BP Location (NBP): Right arm, Patient Position: Sitting, BP Cuff Sizes: Adult (25-34cm)) Pulse 65 Ht 177.8 cm (5' 10) Comment: reported Wt 113.9 kg (251 lb) Comment: reported BMI 36.01 kg/m?? Physical Exam: Well-appearing female in no acute distress. Alert and Oriented x 3 and answers all questions appropriately. The incision is well healed, with no signs of infection. Knee Exam: Left Knee ROM: Extension:0 Flexion: 120 Alignment: 0-4 degrees Neutral Stability: A/P Translation <5mm Varus <5mm Valgus <5mm Extension La degrees or less Patella Tracking: Normal Pulses Palpable: Left PT:Yes Left DP:Yes Motor/Sensory: Distal Motor: Normal Distal Sensory: Normal Quadriceps Strength: 4 Questionnaire Responses: [facility] Surgical Postop Visit 05/18/2019 PROMIS-10 General Health Very Good PROMIS-10 Quality of Life Very Good PROMIS-10 Physical Health Good PROMIS-10 Mental Health Excellent PROMIS-10 Social Activity Excellent PROMIS-10 Everyday Activities Mostly PROMIS-10 Pain 4 PROMIS-10 Fatigue Mild PROMIS-10 Social Roles Very Good PROMIS-10 Anxious or Depressed Never PROMIS PHYSICAL HEALTH SCORE 44.9 PROMIS MENTAL HEALTH SCORE 62.5 KOOS JR Scores 61.58 Problems with surgical incision/wound after surgery No Gone to ER since knee surgery Yes Where was ER located? [facility] Date of ER visit 03/18/2019 Reason for ER visit Rough date estimate. Chest pain due to heartburn Admitted to hospital since recent ortho surgery No Additional surgery on same body part No Hospital - Surgeon - Date of surgery - Reason for surgery - TKA Grade 6 Pain in other KNEE None Back pain at this moment None Satisfaction with Treatment Satisfied Choose Same Treatment Again Definitely yes [facility] Response 05/18/2019 KOOS JR Scores 61.58 Spine [facility] Response 05/18/2019 KOOS JR Scores 61.58 ASSESSMENT/PLAN: Ms. Eugene is a 53 y.o. year old female status post left total knee polyswap Doingwell postoperatively. Pt seen and plan discussed in conjunction with Dr. Valdez Continue weightbearing as tolerated and working on range of motion. I have written a PT referall for her to continue working on her ROM. We will see her back at one year post surgical date for repeat examination. X- rays will be needed at that time Dr. Valdez has prescribed her an increased Gabapentin with tapered dosage to help with sleep. We do encourage her to return to her PCP for further advice regarding sleep. . Patient may return to normal activities as her pain and function allow. We discussed [...] All questions were answered. Signed: GANESH Castle 05/18/2019 FU in 2 months with no XR, CRP prior to the appointment documented in this encounter Plan of Treatment Not on file documented as of this encounter Visit Diagnoses Diagnosis Status post left knee replacement documented in this encounter Care Teams Carbon Furnace Operator Helper Relationship Specialty Start Date End Date Sari Hay MD [address] [place] [address] PCP - General 05/21/11 documented as of this encounter
--- OUTSIDE RECORDS SUMMARY | 2024-04-26 15:50 | XMS_ITS | Encounter Summary ---
Author Organization [facility] Address [facility] [place] [address] Care Team Providers Care Harness Rigger Name Role Phone Sari Hay MD Primary Care Provider [phone] Reason for Visit * Reason Comments Medication Refill Encounter Details Date Type Department Care Team (Late st Contact Info) Description 04/04/2019 Refill [place] [address] Renato Burton MD [facility] [place] [address] Social History Tobacco Use Types Packs/Day Years [...] on filedocumented in this encounter Care Teams Harness Rigger Relationship Specialty Start Date End Date Sari Hay MD [address] [place], [place] [id number] PCP - General 05/21/11 documented as of this encounter
--- OUTSIDE RECORDS SUMMARY | 2024-04-26 15:50 | XMS_ITS | Encounter Summary ---
Author Organization [facility] [place] [address] Care Team Providers Care Animal Impersonator Name Role Phone Sari Hay MD Primary Care Provider [phone] Encounter Details Date Type Department Care Team (Late st Contact Info) Description 04/05/2019 Telephone [place] [phone] Randal Rothman, RN Social History Tobacco Use Types Packs/Day [...] encounter Miscellaneous Notes * Addendum Note - Praveen Masterson RN - 05/11/2019 4:40 PM EDTAddended by: PRAVEEN MASTERSON on: 05/11/2019 04:40 PM Modules accepted: Orders * Telephone Encounter - Randal Rothman RN - 04/05/2019 3:29 PM EDT [facility] [phone] fax documented in this encounter Plan of Treatment Not on file documented as of this encounter Visit Diagnoses Diagnosis Status post left knee replacement documented in this encounter Care Teams Animal Impersonator Relationship Specialty Start Date End Date Sari Hay MD [address] [facility] [address] [place] [address] PCP - General 05/21/11 documented as of this encounter
--- OUTSIDE RECORDS SUMMARY | 2024-04-26 15:50 | XMS_ITS | Encounter Summary ---
Author Organization [facility] Address [facility] [place] [address] Care Team Providers Care Learning Support Specialist Name Role Phone Sari Hay MD Primary Care Provider [phone] Reason for Referral * Physical Therapy (Routine) - Specialty Diagnoses / Procedures Referred By Emmanuel cisneros Referred To Contact Physical Therapy Diagnoses Infection associated with internal right knee prosthesis, initial encounter Status post left knee replacement Teressa Taylor PA [facility] [place] [address] Referral ID Status Reason Start Date Expiration Date V isits Requested Visits Authorized [id number] Evaluate and Treat 03/09/2019 09/05/2019 1 1 Reason for Visit * Reason Comments Post Op left knee I&D Encounter Details Date Type Department Care Team (Late st Contact Info) Description 03/09/2019 2:30 PM EDT [place] [address] Rod Valdez MD [facility] [place] [address] Infection associated with internal right knee prosthesis, initial encounter; Status post left knee replacement Social History [...] Sign Reading Time Taken Comments Blood Pressure 93/60 03/09/2019 2:48 PM EDT Pulse 95 03/09/2019 2:48 PM EDT Temperature 36.6 ??C (97.8 ??F) 03/09/2019 2:48 PM ED T Respiratory Rate - - Oxygen Saturation - - Inhaled Oxygen Concentration - - Weight - - Height - - Body Mass Index - - documented in this encounter Progress Notes * Teressa Taylor PA - 03/09/2019 2:30 PM EDT Arthroplasty/Orthopaedic History: 1. Left TKA 2. Left TKA polyswap 02/10/19 ([place]) HPI: Sissy Eugene is a very pleasant 53 y.o. year-old female and is now 1 month post left totalknee revision The patient has been doing well. . Pain is controlled with current analgesics. Medication(s) being used: aleve. She is taking 300 mg of Gabapentin at night. She is experiencing some discomfort at night with stinging, burning sensations. With her prior TKA she was given a prescription for 1-3 300 mg Gabapentin and she wonders if increasing the dosage of Gabapentin may be helpful. .. No fevers, chills, nausea, vomiting, or symptoms of infection. Sissy has been ambulating with noassistive device except when walking on uneven ground or when walking across campus. She is workinghard with PT. She is not taking narcotic pain medicine. She will have her PICC line removed next week. ROS: Denies: fever, chills, night sweats, nausea, or vomiting BP 93/60 Pulse 95 Temp 36.6 ??C (97.8 ??F) (Oral) Physical Exam: Well-appearing female in no acute distress. Alert and Oriented x 3 and answers all questions appropriately. The incision is well healed, with no signs of infection. Knee Exam: Left Knee ROM: Extension:0 Flexion: 110 Alignment: 0-4 degrees Neutral Stability: A/P Translation [...] subsidence, loosening, or periprosthetic complication. Questionnaire Responses: [facility] Surgical Postop Visit 03/09/2019 PROMIS-10 General Health Good PROMIS-10 Quality of Life Very Good PROMIS-10 Physical Health Good PROMIS-10 Mental Health Very Good PROMIS-10 Social Activity Excellent PROMIS-10 Everyday Activities Moderately PROMIS-10 Pain 4 PROMIS-10 Fatigue Moderate PROMIS-10 Social Roles Fair PROMIS-10 Anxious or Depressed Sometimes PROMIS PHYSICAL HEALTH SCORE 39.8 PROMIS MENTAL HEALTH SCORE 53.3 KOOS JR Scores 57.14 Problems with surgical incision/wound after surgery No Gone to ER since knee surgery No Admitted to hospital since recent ortho surgery No Additional surgery on same body part Yes [facility] Surgeon Mary Lou Date of surgery 01/17/2019 Reason for surgery Remove scar tissue from knee replacement 09/20 TKA Grade 3 Pain in other KNEE Moderate Back pain at this moment None Satisfaction with Treatment Satisfied Choose Same Treatment Again Definitely yes Orthopead[facility] Response 03/09/2019 KOOS JR Scores 57.[address] [facility] Response 03/09/2019 KOOS JR Scores 57.14 ASSESSMENT/PLAN: Ms. Eugene is a 53 y.o. year old female status post left total knee polyswap Doingwell postoperatively. Pt seen and plan discussed in conjunction with Dr. Hdz. Continue weightbearing as tolerated and working on range of motion. I have written a PT referall for her to continue working on her ROM. I have also called in a script for 300 mg 1-2 Gabapentin PRN at night. We will see her back in 2 months for repeat examination. No X-rays will be needed at that time however we would like her to obtain CRP prior to the visit. . Patient may return to normal activities angelica pain and function allow. We discussed the [...] All questions were answered. Signed: GANESH Castle 03/09/2019 FU in 2 months with no XR, CRP prior to the appointment documented in this encounter Plan of Treatment Scheduled Referrals Name Type Priority Associated Diagnoses Orde r Schedule Referral to Physical Therapy Outpatient Referral Routine Infection associated with internal right knee prosthesis, initial encounter Status post left knee replacement Ordered: 03/09/2019 documented as of this encounter Visit Diagnoses Diagnosis Infection associated with internal right knee prosthesis, initial encounter Status post left knee replacement documented in this encounter Care Teams Learning Support Specialist Relationship Specialty Start Date End Date Sari Hay MD [address] [place] [address] PCP - General 05/21/11 documented as of this encounter
--- OUTSIDE RECORDS SUMMARY | 2024-04-26 15:50 | XMS_ITS | Encounter Summary ---
Author Organization [facility]ly [facility] Address [facility] [place] [address] Care Team Providers Care Orthopaedic Doctor Name Role Phone Sari Hay MD Primary Care Provider [phone] Encounter Details Date Type Department Care Team (Late st Contact Info) Description 04/04/2019 [place] [address] Karen Nixon MD [facility] [place] [address] Infection associated with internal right knee prosthesis, [...] * Telephone Encounter - Daniella Childers - 04/04/2019 3:46 PM EDT Called and left a VM on Ana Rosa's cell phone. After speaking to Dr. Valdez, he stated she does not needto be on any extra antibiotics as she is currently on IV antibiotics managed by ID. She will be considered therapeutic with the current antibiotics. Please relay this information to Ana Rosa when she calls back. * Telephone Encounter - Daniella Childers - 04/04/2019 2:58 PM EDT Ana Rosa called in today and is having a problem with her tooth. She states she needs antibiotic therapy prior to any dental work. She is 6 weeks post I&D of her knee. I told her I would route this to Dr. Nixon so he could follow up. Routed to Trice Lujan PA-C and Dr. ALVAREZ documented in this encounter Plan of Treatment Not on file documented as of this encounter Visit Diagnoses Diagnosis Infection associated with internal right knee prosthesis, subsequent encounter documented in this encounter Care Teams Orthopaedic Doctor Relationship Specialty Start Date End Date Sari Hay MD [facility] [address] [place] [address] PCP - General 05/21/11 documented as of this encounter
--- OUTSIDE RECORDS SUMMARY | 2024-04-26 15:50 | XMS_ITS | Encounter Summary ---
Author Organization [facility] [place] [address] Care Team Providers Care Hvac Sales Representative Name Role Phone Sari Hay MD Primary Care Provider [phone] Reason for Visit * Reason Onset Date Comments Medication Refill 03/30/2019 Encounter Details Date Type Department Care Team (Late st Contact Info) Description 03/30/2019 Refill [place] [address] Juan A Dalal RN Social History Tobacco [...] Encounter - Juan A Dalal RN - 03/30/2019 10:35 AM EDT Opened in error. documented in this encounter Plan of Treatment Not on file documented as of this encounter Visit Diagnoses Not on filedocumented in this encounter Care Teams Hvac Sales Representative Relationship Specialty Start Date End Date Sari Hay MD [facility] [address] [place] [address] PCP - General 05/21/11 documented as of this encounter
--- OUTSIDE RECORDS SUMMARY | 2024-04-26 15:50 | XMS_ITS | Encounter Summary ---
Author Organization [facility] Address [facility] [place] [address] Care Team Providers Care Imaging Scheduler Name Role Phone Sari Hay MD Primary Care Provider [phone] Reason for Visit * Auth/Cert Specialty Diagnoses / Procedures Referred By Emmanuel t Referred To Contact Diagnoses Infection of prosthetic left knee joint Procedures EMERGENCY IPI Referral ID Status Reason Start Date Expiration Date Visits Re quested Visits Authorized [id number] 1 1 Encounter Details Date Type Department Care Team (Late st Contact Info) Description 02/10/2019 11:05 AM EDT Anesthesia [place] [address] Andria Cordova MD [facility] [place] [address] Yonatan Hilton MD [facility] [place] [address] Anesthesia Record Procedure Summary Procedure Name Responsible Anesthesiologist Anesthesia Start Time Anesthesia Stop Time @TOTAL KNEE REVISION ARTHROPLASTY, ONE COMPONENT (WRVU 21.12) (Left: Knee) Andria Cordova MD 02/10/19 1105 02/10/19 1356 Events Date Time Event Comment 02/10/2019 1040 1105 Start 1106 AN Verify 1115 Spinal 1132 AN Verify 1133 An Start Data 1138 Anesthesia Ready 1202 An Tourn Inflated 1251 An Tourn Deflated 1345 an stop data 1354 Recovery or ICU Handoff Kecia ent care was transferred to the destination unit staff after review of the patient's medical history, current anesthetic/surgical status and plan, according to the Provider Handoff Checklist. 1356 Stop Meds Name Total BUpivacaine 0.5% 20 mL Midazolam 2 mg Propofol INF 689.54 mg BUpivacaine 0.75% with Dextrose 15 mg ceFAZolin 2 g Lactated Ringers 1,000 mL * Agents Name O2 Air N2O O2 Auxiliary Flowmeter 1 * Blood No blood administrations on file. Lines, Drains, and Airways Type Details Placement Removal Incision 10/01/15; foot; 06/02/22 (LDA cleanup utility RA#[id number]); 1715 (LDA cleanup utility RA#[id number]) 10/01/15 0000 by Alma Hutchins RN 06/02/22 1715 by Sae Abdi (RETIRED) Peripheral IV Line - Single Lumen 02/10/19; 0000; median cubital vein (antecubital fossa), right; [id number] catheter system; 20 gauge; OSH GLASS INSTALLER TECHNICIAN; 02/11/19; 0750 02/10/19 0000 by Catrina Crowe, NRP 02/11/19 0750 by Chiquis Stanley Incision 02/10/19; 1209; knee ; 06/02/22 (LDA cleanup utility RA#[id number]); 1715 (LDA cleanup utility RA#[id number]) 02/10/19 1209 by Catrina Hutchins RN 06/02/22 1715 by Sae Abdi documented in this encounter Social History Tobacco [...] OR Notes * Anesthesia Postprocedure Evaluation - Andria Cordova MD - 02/10/2019 2:09 PM EDT [facility] Department of Anesthesiology Post-procedure Note Patient: Sissy Eugene Procedure Summary Date: 02/10/19 Room / Location: [facility] MAIN OR Anesthesia Start: 1105 Anesthesia Stop: 1356 Procedure: @TOTAL KNEE REVISION ARTHROPLASTY, ONE COMPONENT (WRVU 21.12) (Left Knee) Diagnosis: (Left prosthetic joint infection) Surgeon: Rod Valdez MD Responsible Provider: Andria Cordova MD Anesthesia Type: spinal ASA Status: 2 All Anesthesia Providers: Anesthesiologist: Andria Cordova MD SYSTEM DISPATCHER: Rl Natarajan CRNA Vitals Value Taken Time BP 105/63 02/10/2019 2:00 PM Temp 37.2 ??C (99 ??F) 02/10/2019 1:52 PM Pulse 76 02/10/2019 2:09 PM Resp 17 02/10/2019 2:09 PM SpO2 94 % 02/10/2019 2:09 PM Pain Level 0 02/10/2019 1:52 PM Vitals shown include unvalidated device data. Patient Location: PACU/[facility] Level of Consciousness: Awake and Alert Pain Management: Satisfactory Analgesia PONV: None Cardiovascular Status: At Baseline Respiratory Status: Postoperative Fluid Status: Intravascular EUvolemia Possible Anesthetic Complications: NONE apparent at time of evaluation Final Primary Anesthesia Type: Spinal (The anesthetic type performed was the same as planned.) Comments: Motor block resolving as expected, patient satisfied with care. * Anesthesia Procedure Notes - Rl Natarajan CRNA - 02/10/2019 11:41 AM EDTAssociated Order(s): Neuraxial Block Procedure: Neuraxial Block Primary Anesthetic Type: Spinal The patient was greeted. The sedation plan, its benefits, risks and alternatives were discussed with the patient. The patient has consented to the procedure. The medical history and chart were reviewed. The timeout was performed. Start time: 02/10/2019 11:10 AM End time: 02/10/2019 11:15 AM Patient Location: Block Room Patient Prep Position: Sitting Prep: Hand Hygiene, Hat, Mask, Sterile Gloves, Chlorhexidine and Patient Draped Injection technique: single-shot Skin Anesthetic Lidocaine 1% 2 ml Procedure Technique Level of needle insertion: L5-S1 Needle approach: midline Needle Type: [facility] Gauge: 25 Needle length: 3.5 in Needle insertion depth when ANITA achieved: 8 cm Number of attempts: 2 Medications: Date/Time: 02/10/2019 11:15 AM BUpivacaine 0.75% with Dextrose, 15 mg Events/Notes Events: None Resident/SYSTEM DISPATCHER: Rl Natarajan CRNA Second Resident/SYSTEM DISPATCHER: Fellow: Attending Physician: Andria Cordova MD ~~~~~~~~~~~~~~~~~~~~~~~~~~~~~~~~~~~~~~~~~~~~~~~~~~~~~~~~~~~~ * Anesthesia Procedure Notes - Mark Nunez MD - 02/10/2019 11:10 AM EDT Associated Order(s): Anesthesia Block Anesthesia Block Date/Time: 02/10/2019 11:12 AM Performed by: Mark Nunez MD Authorized by: Yonatan Hilton MD Start Time: 02/10/2019 11:00 AM End Time: 02/10/2019 11:05 AM Patient Location: Block Room The patient was greeted; the risks and benefits of the procedure were reviewed. Indication: Post-op Pain Control Post-op pain management at the request of surgeon. Block Type: Adductor canal block Laterality: Left Position: Supine Prep: Chlorhexidine and mask, cap, sterile gloves, hand hygeine Skin Anesthetic: Lidocaine 1% dose: 3 [id number] 21 10 cm Ultrasound Guided: Live and in-plane Ultrasound guidance was used to identify the targeted neuronal structure. Ultrasound was also used to identify needle position and to identify tissue (bone, muscle, and blood vessels) to prevent inadvertent intraneural or intravascular needle placement and injection. The spread of local anesthetic was confirmed with live ultrasound imaging. Single-Shot: Single-shot BUpivacaine 0.5%, 20 mL no complications Resident/SYSTEM DISPATCHER:: Mark Nunez MD Attending Physician:: Yonatan Hilton MD * Anesthesia Preprocedure Evaluation - Yonatan Hilton MD - 02/10/2019 10:39 AM EDT Pre-Anesthesia Evaluation for: Sissy Eugene a 53 y.o. female. Procedure(s): @TOTAL KNEE REVISION ARTHROPLASTY, ONE COMPONENT (WRVU 21.12) Patient Active Problem List Diagnosis ??? Infection of prosthetic left knee joint ??? S/P orthopedic surgery, follow-up exam ??? Hammer toe of left foot Second toe No past medical history on file. Past Surgical History: Procedure Laterality Date ??? PRO OSTEOTOMY METATARSAL (NOT 1ST) Left 10/01/2015 OSTEOTOMY, METATARSAL, OTHER THAN FIRST, EACH performed by Stanley Koo MD at [facility] ??? PRO XFER SINGLE SUPERFICI LOW LEG TENDON Left 10/01/2015 TENDON TRANSFER, ANKLE, SUPERFICIAL performed by Stanley Koo MD at [facility] Social History Tobacco Use ??? Smoking status: Former Smoker Packs/day: 0.50 Years: 15.00 Pack years: 7.50 Types: Cigarettes Last attempt to quit: 07/18/2003 Years since quittin.5 ??? Smokeless tobacco: Never Used Substance Use Topics ??? Alcohol use: Yes Comment: Rare Social History Substance and Sexual Activity Drug Use No Allergies Allergen Reactions ??? Adhesive Bandage Rash ??? Codeine Nausea Only Medications: MAR and/or home medications have been reviewed. Physical Exam: Most Recent Vitals: 02/10/19 0800 BP: 122/77 Pulse: Resp: Temp: SpO2: 91% Body mass index is 39.75 kg/m??. Height: 177.8 cm (5' 10) Weight: 125.6 kg (277 lb) Airway Assessment: Mallampati: II TM distance: >3 FB Neck ROM: full Cardiovascular Assessment: Pulmonary Assessment: Dental Assessment: Misc Assessment: Anesthesia Plan: ASA 2 spinal, 53yo female presenting with infected TKA for left TKA revision Plan for Spinal Adductor canal block for post op pain control Region - Other Informed Consent: Anesthetic plan and risks discussed with patient. PAT Clinic Note documented in this encounter Miscellaneous Notes * Addendum Note - Mark Nunez MD - 02/11/2019 8:46 AM EDT Addendum created 02/11/19845 by Mark Nunez MD Charge Capture section accepted, Pend clinical note documented in this encounter Plan of Treatment Not on file documented as of this encounter Procedures Procedure Name Priority Date/Time Associated Diagnosis Comments ANE NEURAXIAL APS USE Routine 02/10/2019 11:41 AM EDT Procedure Note - Rl Natarajan CRNA - 02/10/2019 11:41 AM EDTThis note is in progress. Procedure: Neuraxial Block Primary Anesthetic Type: Spinal The patient was greeted. The sedation plan, its benefits, risks andalternatives were discussed with the patient. The patient has consentedto the procedure. The medical history and chart were reviewed. Thetimeout was performed. Start time: 02/10/2019 11:10 AM End time: 02/10/2019 11:15 AM Patient Location: Block Room Patient Prep Position: Sitting Prep: Hand Hygiene, Hat, Mask, Sterile Gloves, Chlorhexidine and PatientDraped Injection technique: single-shot Skin Anesthetic Lidocaine 1% 2 ml Procedure Technique Level of needle insertion: L5-S1 Needle approach: midline Needle Type: [facility] Gauge: 25 Needle length: 3.5 in Needle insertion depth when ANITA achieved: 8 cm Number of attempts: 2 Medications: Date/Time: 02/10/2019 11:15 AM BUpivacaine 0.75% with Dextrose, 15 mg Events/Notes Events: None Resident/SYSTEM DISPATCHER: Rl Natarajan CRNA Second Resident/SYSTEM DISPATCHER: Fellow: Attending Physician: Andria Cordova MD ~~~~~~~~~~~~~~~~~~~~~~~~~~~~~~~~~~~~~~~~~~~~~~~~~~~~~~~~~~~~ ANESTHESIA BLOCK Routine 02/10/2019 11:10 AM EDT documented in this encounter Results * Anesthesia Block (02/10/2019 11:10 AM EDT) Narrative Yonatan Hilton MD - 02/10/2019 11:10 AM EDT Mark Nunez MD ? 02/10/2019 11:12 AM Anesthesia Block Date/Time: 02/10/2019 11:12 AM Performed by: Mark Nunez MD Authorized by: Yonatan Hilton MD Start Time: ??02/10/2019 11:00 AM End Time: ??02/10/2019 11:05 AM Patient Location: ??Block Room The patient was greeted; the risks and benefits of the procedure were reviewed. ?? Indication: ??Post-op Pain Control Post-op pain management at the request of surgeon. ?? Block Type: ??Adductor canal block Laterality: ??Left Position: ??Supine Prep: ??Chlorhexidine and mask, cap, sterile gloves, hand hygeine Skin Anesthetic: ??Lidocaine 1% dose: ??3 [id number]-nvpbs 21 10 cm Ultrasound Guided: ??Live and in-plane Ultrasound guidance was used to identify the targeted neuronal structure. Ultrasound was also used to identify needle position and to identify tissue (bone, muscle, and blood vessels) to prevent inadvertent intraneural or intravascular needle placement and injection. The spread of local anesthetic was confirmed with live ultrasound imaging. ?? Single-Shot: ??Single-shot BUpivacaine 0.5%, 20 mL no complications ?? Resident/SYSTEM DISPATCHER:: ??Mark Nunez MD Attending Physician:: ??Yonatan Hilton MD Yonatan Hilton MD CORPORATE SALES MANAGER [employer] documented in this encounter Visit Diagnoses Not on filedocumented in this encounter Administered Medications Inactive Administered Medications - up to 3 most recent administrations Medication Order MAR Action Action Date Dose Rate Site BUpivacaine (PF) (MARCAINE) 0.5 % (5 mg/mL) injection Starting on Paty 02/10/19 at 1112, Until Paty 02/10/19 at 1112, Anesthesia Intra-op, Routine Given 02/10/2019 11:12 AM EDT 20 mLs BUpivacaine 0.75% in dextrose 8.25% (intrathecal) (SENSORCAINE) 0.75 % (7.5 mg/mL) injection Intrathecal, Starting on Paty 02/10/19 at 1115, Until Paty 02/10/19 at 1115, Anesthesia Intra-op, Routine Given 02/10/2019 11:15 AM EDT 15 mg ceFAZolin (ANCEF) 1g in dextrose 5% 50mL PRN, Starting on Paty 02/10/19 at 1216, Until Paty 02/10/19 at 1356, Administer over 30 Minutes, Anesthesia Intra-op Given 02/10/2019 12:16 PM EDT 2 g lactated ringers infusion CONTINUOUS PRN, Starting on Paty 02/10/19 at 1105, Until Paty 02/10/19 at 1356, Anesthesia Intra-op New Bag 02/10/2019 11:05 AM EDT midazolam (PF) (VERSED) multi-dose injection Intravenous, PRN, Starting on Paty 02/10/19 at 1138, Until Paty 02/10/19 at 1356, Anesthesia Intra-op, Routine Given 02/10/2019 11:38 AM EDT 2 mg propofol (DIPRIVAN) infusion Intravenous, CONTINUOUS PRN, Starting on Paty 02/10/19 at 1138, Until Paty 02/10/19 at 1356, Anesthesia Intra-op, Routine Rate/Dose Change 02/10/2019 12:51 PM EDT 50 mcg/kg/min 37.7 mL/hr Rate/Dose Change 02/10/2019 12:16 PM EDT 40 mcg/kg/min 30. 1 mL/hr Rate/Dose Change 02/10/2019 11:58 AM EDT 30 mcg/kg/min 22. 6 mL/hr documented in this encounter Care Teams Imaging Scheduler Relationship Specialty Start Date End Date Sari Hay MD [address] [place] [address] PCP - General 05/21/11 documented as of this encounter
--- OUTSIDE RECORDS SUMMARY | 2024-04-26 15:50 | XMS_ITS | Encounter Summary ---
Author Organization [facility] [place] [address] Care Team Providers Care Middle School Sports Coach Name Role Phone Sari Hay MD Primary Care Provider Encounter Details Date Type Department Care Team (Late st Contact Info) Description 03/03/2019 Orders [place] [address] Naina King [facility] [place] [address] Infection of prosthetic joint, subsequent encounter (Primary Dx) Social History Tobacco [...] of this encounter Visit Diagnoses Diagnosis Infection of prosthetic joint, subsequent encounter- Primary documented in this encounter Care Teams Middle School Sports Coach Relationship Specialty Start Date End Date Sari Hay MD [address] [place] [address] PCP - General 05/21/11 documented as of this encounter
--- OUTSIDE RECORDS SUMMARY | 2024-04-26 15:50 | XMS_ITS | Encounter Summary ---
Author Organization Formerly [facility] Address [facility] [place] [address] Care Team Providers Care Customer Service Rep Name Role Phone Sari Hay MD Primary Care Provider [phone] Encounter Details Date Type Department Care Team (Late st Contact Info) Description 03/25/2019 Orders [place] [address] Alma Matthew MD [facility] [address] Neutropenia, drug-induced Social History Tobacco Use Types [...] neutropenia documented in this encounter Care Teams Customer Service Rep Relationship Specialty Start Date End Date Sari Hay MD [address] [place], [place] [id number] PCP - General 05/21/11 documented as of this encounter
--- OUTSIDE RECORDS SUMMARY | 2024-04-26 15:50 | XMS_ITS | Encounter Summary ---
Author Organization [facility] Address [facility] [place] [address] Care Team Providers Care Study Abroad Advisor Name Role Phone Sari Hay MD Primary Care Provider [phone] Encounter Details Date Type Department Care Team (Late st Contact Info) Description 03/22/2019 Notes Only [place] [address] Renato Burton MD [facility] [place] [address] Social History Tobacco Use Types Packs/Day Years [...] Progress Notes * Renato Burton MD - 03/22/2019 11:44 AM EDT Infectious Diseases Attending Ms. Eugene had a repeat CBC yesterday. This still showed an ANC of 0. Her last dose of ceftriaxone was on March 15. I spoke with her on the phone today. She continues to feel well, without fever or other systemic orlocal signs or symptoms of infection. She is taking ciprofloxacin and rifampin as directed. I discussed the case again today with a Hematology attending and I reviewed the literature on management of drug-induced neutropenia. It would be reasonable to expect recovery of neutrophils about 7-14 days after clearance of the offending agent; as ceftriaxone has a long half-life, we have not even reached the seven- day suzi. Although treatment with G-CSF might hasten recover by a few days, studies have not shown this to be of clinical benefit in patients without fever. From UpToDate: There is no established role for the use of CSFs in afebrile patients who have already developed severe neutropenia after chemotherapy, and we recommend against their use. The lack of benefit from CSFs in this setting was illustrated in a controlled trial in which 138 afebrile outpatients with severe chemotherapy-induced neutropenia (absolute neutrophil count [ANC] ?500/microL) were randomly assigned to G-CSF or placebo until the ANC recovered to at least 500/microL. The duration of severe neutropenia was modestly shorter with G-CSF (two versus four days), but there was no effect on the rateof hospitalization or number of culture-positive infections. I discussed the options with colleagues and with Ms. Eugene. She could receive G-CSF at a local hospital, in which case I would give her 5 mcg/kg/day x 3 days. I ultimately decided not to prescribe it, however, based on my discussions with Hematology and review of the literature. We will repeat a CBC in three days and keep in touch with the patient by phone. She understands that she should call me or the ID physician on-call promptly should she develop temperature elevation or any local symptoms whatsoever. documented in this encounter Plan of Treatment Not on file documented as of this encounter Visit Diagnoses Not on filedocumented in this encounter Care Teams Study Abroad Advisor Relationship Specialty Start Date End Date Sari Hay MD [address] [place] [address] PCP - General 05/21/11 documented as of this encounter
--- OUTSIDE RECORDS SUMMARY | 2024-04-26 15:50 | XMS_ITS | Encounter Summary ---
Author Organization [facility] Address [facility] [place] [address] Care Team Providers Care Retail Cashier Name Role Phone Sari Hay MD Primary Care Provider Encounter Details Date Type Department Care Team (Late st Contact Info) Description 03/14/2019 Orders [place] [address] Renato Burton MD [facility] [place] [address] Infection of prosthetic joint, subsequent encounter; Encounter for long-term (current) use of antibiotics Social History Tobacco Use [...] Diagnoses Diagnosis Infection of prosthetic joint, subsequent encounter Encounter for long-term (current) use of antibiotics documented in this encounter Care Teams Retail Cashier Relationship Specialty Start Date End Date Sari Hay MD [address] [place] [address] PCP - General 05/21/11 documented as of this encounter
--- OUTSIDE RECORDS SUMMARY | 2024-04-26 15:50 | XMS_ITS | Encounter Summary ---
Author Organization [facility] [place] [address] Care Team Providers Care Sales Administration Manager Name Role Phone Sari Hay MD Primary Care Provider [phone] Encounter Details Date Type Department Care Team (Late st Contact Info) Description 03/25/2019 Notes [place] [id number] Elzbieta Carter, RN Social History Tobacco Use [...] of this encounter Progress Notes * Elzbieta Carter, RN - 03/25/2019 2:42 PM EDT 14:45: Called both home and cell phone numbers. I left a message for Ana Rosa that we had received theresults from her blood drawn this forenoon at [facility]. Results reviewed by Dr. Alma Matthew (covering for Dr. Renato Burton). 03/25/19: WBC: 3.64, increased from 2.57 on 03/21, ANC: 0.41 today, increased from 0.00 on 03/21. No additional blood work ordered at this time. 15:00: Return call received from Ana Rosa. She denied having a fever, chills, flu- like symptoms, nor any other signs/symptoms of infection. I'm feeling okay, run down but better every day. She verbalized that she had been avoiding sick contacts. She stated that she would like our ID physicians to continue to monitor her blood work closely as she want to get on with my life, go some places and do things with my this summer. 15:30: Per Dr. Matthew, plan to repeat CBC w/Diff on 03/30/19. Order faxed to [facility]. I phoned Ana Rosa with this update. Elzbieta Carter, RN, OPAT Program Pager [phone] documented in this encounter Plan of Treatment Not on file documented as of this encounter Visit Diagnoses Not on filedocumented in this encounter Care Teams Sales Administration Manager Relationship Specialty Start Date End Date Sari Hay MD [address] [facility] [address] [place] [address] PCP - General 05/21/11 documented as of this encounter
--- OUTSIDE RECORDS SUMMARY | 2024-04-26 15:50 | XMS_ITS | Encounter Summary ---
Author Organization [facility] [place] [address] Care Team Providers Care German Teacher Name Role Phone Sari Hay MD Primary Care Provider [phone] Encounter Details Date Type Department Care Team (Late st Contact Info) Description 03/16/2019 Orders [place] [address] Renato Burton MD [facility] [place] [address] Neutropenia, drug-induced Social History Tobacco Use Types [...] neutropenia documented in this encounter Care Teams German Teacher Relationship Specialty Start Date End Date Sari Hay MD [address] [place], [place] [id number] PCP - General 05/21/11 documented as of this encounter
--- OUTSIDE RECORDS SUMMARY | 2024-04-26 15:50 | XMS_ITS | Encounter Summary ---
Author Organization [facility] Address [facility] [place] [address] Care Team Providers Care Engineer Design And Construction Name Role Phone Sari Hay MD Primary Care Provider [phone] Reason for Referral * Consultation (Routine) - Duplicate Referral Specialty Diagnoses / Procedures Referred By Contac t Referred To Contact Infectious Diseases Diagnoses Infection associated with internal left knee prosthesis, initial encounter Alma Matthew MD [facility] [place] [address] Alma Matthew MD [facility] [place] [address] Referral ID Status Reason Start Date Expiration Date Visits Requested Visits Authorized [id number] Duplicate Referral Assume Subset of Care 02/17/2019 02/17/2020 1 1 Encounter Details Date Type Department Care Team (Late st Contact Info) Description 02/17/2019 Orders [place] [address] Alma Matthew MD [facility] [place] [address] Infection associated with internal left knee prosthesis, initial encounter Social History Tobacco [...] as of this encounter Plan of Treatment Scheduled Referrals Name Type Priority Associated Diagnoses Order Schedule OPAT: Order / Recommendation for Post Discharge IV Antibiotic Management Outpatient Referral Routine Infection associated with internal left knee prosthesis, initial encounter Ordered: 02/17/2019 documented as of this encounter Visit Diagnoses Diagnosis Infection associated with internal left knee prosthesis, initial encounter documented in this encounter Care Teams Engineer Design And Construction Relationship Specialty Start Date End Date Sari Hay MD [facility] [address] [place] [address] PCP - General 05/21/11 documented as of this encounter
--- OUTSIDE RECORDS SUMMARY | 2024-04-26 15:50 | XMS_ITS | Encounter Summary ---
Author Organization [facility] Address [facility] [place] [address] Care Team Providers Care Oracle Manager Name Role Phone Sari Hay MD Primary Care Provider [phone] Reason for Visit * Reason Onset Date Comments Disability Paperwork 03/03/2019 Encounter Details Date Type Department Care Team (Late st Contact Info) Description 03/03/2019 [place] [address] Rod Valdez MD [facility] [place] [address] Disability Paperwork Social History Tobacco Use Types [...] * Telephone Encounter - Katt Swanson - 03/14/2019 10:54 AM EDT Faxed/Mailed/Pick-up Date: Faxed /03/14/19 * Telephone Encounter - Katt Swanson - 03/11/2019 11:21 AM EDT Completed by: Thelma To provider for review/signature: Dr. Valdez // 03/11/19 * Telephone Encounter - Taylor Canada - 03/09/2019 3:54 PM EDT Ana Rosa called back to check on her paperwork, I gave her the information that was in this note. Ana Rosa asked that she be notified through her my- when it is complete. * Telephone Encounter - Katt Swanson - 03/07/2019 12:31 PM EDT Patient has a follow up appointment on 03/09 waiting until office note becomes available * Telephone Encounter - Katt Swanson - 03/03/2019 2:42 PM EDT Date Received: 03/03/19 Insurance/Disability Company Name: [employer] Release on file/mailed: On File documented in this encounter Plan of Treatment Not on file documented as of this encounter Visit Diagnoses Not on filedocumented in this encounter Care Teams Oracle Manager Relationship Specialty Start Date End Date Sari Hay MD [address] [place] [address] PCP - General 05/21/11 documented as of this encounter
--- OUTSIDE RECORDS SUMMARY | 2024-04-26 15:51 | XMS_ITS | Encounter Summary ---
Author Organization [facility] Address [facility] [place] [address] Care Team Providers Care Manager Business Information Name Role Phone Sari Hay MD Primary Care Provider [phone] Encounter Details Date Type Department Care Team (Late st Contact Info) Description 10/29/2017 Ancillary Procedure [place] [address] Social History Tobacco Use Types Packs/Day Years [...] Diagnosis Comments FILM LIBRARY STORAGE ONLY DX KNEE STAT 10/29/2017 12:00 AM EST documented in this encounter Results * Film Library- Storage Only DX Knee (10/29/2017 12:00 AM EST) Narrative CORINNA - 02/10/2019 2:36 AM EDT This exam is auto-finalizing. It's purpose is for storage only. Karen Nixon MD IMG FILM LIBRARY OR DERABLES [place], [place] documented in this encounter Visit Diagnoses Not on filedocumented in this encounter Care Teams Manager Business Information Relationship Specialty Start Date End Date Sari Hay MD [facility] [address] [place] [address] PCP - General 05/21/11 documented as of this encounter
--- OUTSIDE RECORDS SUMMARY | 2024-04-26 15:51 | XMS_ITS | Encounter Summary ---
[facility] [place] [address] Care Team Providers Care Web Merchant Name Role Phone Sari Hay MD Primary Care Provider [phone] Encounter Details Date Type Department Care Team (Latest Contact Info) Description 06/02/2011 10:16 AM EDT - 06/02/2011 11:59 PM EDT Hospital En[place] [address] Abnormal findings on diagnostic imaging of breast Social History Tobacco Use Types Packs/Day Years Used Date Smoking Tobacco: Never Assessed Sex and Gender Information Value Date Recorded Sex Assigned at Not on file Gender Identity Not on file Sexual Orientation Not on file documented as of this encounter Plan of Treatment Not on file documented as of this encounter Procedures Procedure Name Priority Date/Time Associated Diagnosis Comments MAMMO DIRECT DIGITAL UNILATERAL Routine 06/02/2011 12:51 PM EDT Abnormal findings on diagnostic imaging of breast documented in this encounter Results * Mammo direct digital unilateral (06/02/2011 12:51 PM EDT) Anatomical Region Laterality Modality Breast N/A Mammography 06/02/2011 12:5 1 PM EDT Impressions 06/03/2011 3:31 PM EDT Impression: concordant Recommendation: F/U mammography in one year. ??As discussed with Ms. Eugene by Dr. Thao on 06/03/11. I was present with the resident, Dr. Jiménez, for the nugent components of the procedure and otherwise remained immediately available for the duration of the procedure. I attest to having personally viewed the images/test and approve the above interpretation. Film and interpretation reviewed by the attending Narrative 06/03/2011 3:31 PM EDT VACUUM ASSISTED STEREOTACTIC BIOPSY OF THE RIGHT BREAST ON 06/02/11: Informed consent was obtained, sterile technique and 1% lidocaine used for local anesthesia and stereotactic guidance used throughout the procedure. Clinical indication: Right breast 8mm focal asymmetry in the lower, outer quadrant at 0700, 12cm from the nipple. A Haroon and Haroon drape was used to cover the track of the biopsy device. ?? 9-gauge Eviva Regular device 8 core biopsy specimens obtained. The specimen was X-rayed; the density is present on specimen digital X-ray. A Trimark Eviva (Stereo) superficial marker clip was placed. Cranio-caudal and lateral digital mammography performed to determine biopsy marker placement, which was shown to be at the biopsy site. Satisfactory sampling was obtained. There were no procedural complications. Imaging diagnosis: FCD versus intramammary lymph node versus cancer. Pathologic diagnosis: Pseudoangiomatous Stromal Hyperplasia Procedure Note Norberto Thao MD - 06/03/2011 VACUUM ASSISTED STEREOTACTIC BIOPSY OF THE RIGHT BREAST ON 06/02/11: Informed consent was obtained, sterile technique and 1% lidocaine used for local anesthesia and stereotactic guidance used throughout theprocedure. Clinical indication: Right breast 8mm focal asymmetry in the lower, outer quadrant at 0700, 12cm from the nipple. A Haroon and Haroon drape was used to cover the track of the biopsydevice. 9-gauge Eviva Regular device 8 core biopsy specimens obtained. The specimen was X-rayed; the density is present on specimen digitalX-ray. A Trimark Eviva (Stereo) superficial marker clip was placed. Cranio-caudaland lateral digital mammography performed to determine biopsy markerplacement, which was shown to be at the biopsy site. Satisfactory sampling was obtained. There were no procedural complications. Imaging diagnosis: FCD versus intramammary lymph node versus cancer. Pathologic diagnosis: Pseudoangiomatous Stromal Hyperplasia IMPRESSION Impression: concordant Recommendation: F/U mammography in one year. As discussed with Ms. Fuad Thao on 06/03/11. I was present with the resident, Dr. Jiménez, for the nugent components ofthe procedure and otherwise remained immediately available for the duration ofthe procedure. I attest to having personally viewed the images/test andapprove the above interpretation. Film and interpretation reviewed by the attending Marj Velasco MD IMG MAMM O ORDERABLES documented in this encounter Visit Diagnoses Diagnosis Abnormal findings on diagnostic imaging of breast Other (abnormal) findings on radiological examination of breast documented in this encounter Care Teams Web Merchant Relationship Specialty Start Date End Date Sari Hay MD [facility] [address] [place] [address] PCP - General 05/21/11 documented as of this encounter
--- OUTSIDE RECORDS SUMMARY | 2024-04-26 15:51 | XMS_ITS | Encounter Summary ---
Author Organization [facility] Address [facility] [facility] [place] [address] Care Team Providers Care Trophy Assembler Name Role Phone Sari Hay MD Primary Care Provider [phone] Reason for Referral * Diagnostic Test (Routine) - Closed Specialty Diagnoses / Procedures Referred By Emmanuel cisneros Referred To Contact Radiology Diagnoses Hammer toe of left foot S/P orthopedic surgery, follow-up exam Procedures MRI Foot WO Contrast Left Stanley Koo MD [facility] [place] [address] [place] [address] Referral ID Status Reason Start Date Expiration Date V isits Requested Visits Authorized [id number] Closed Specialty Service Requested 01/24/2016 03/23/2016 1 1 Encounter Details Date Type Department Care Team (Late st Contact Info) Description 01/24/2016 Orders [place] [address] Stanley Koo MD [facility] [place] [address] Hammer toe of left foot; S/P orthopedic surgery, follow-up exam Social History Tobacco Use Types Packs/Day Years [...] as of this encounter Results * MRI Foot WO Contrast Left (02/01/2016 12:57 PM EDT) Anatomical Region Laterality Modality Foot Left Magnetic Resonan ce Impressions 02/01/2016 4:26 PM EDT IMPRESSION: 1. ??There is malalignment at the second metatarsophalangeal joint and the plantar plate and collateral ligament appear thinned but no discrete rupture is identified. 2. ??Healing osteotomy second proximal phalanx. 3. ??First metatarsal-phalangeal joint osteoarthritis. Narrative 02/01/2016 4:26 PM EDT EXAMINATION: MRI FOOT LEFT WO CONTRAST CLINICAL HISTORY: Left foot pain/ plantar plate tear TECHNIQUE: ??MR images of the forefoot were acquired. Fat-suppressed T2-weighted images were done density weighted images and T1-weighted images were acquired. The study includes a 3-D acquisition in the coronal plane. COMPARISON: X-rays 01/24/2016. FINDINGS: At the second toe extensive surgical changes are present. There are multiple small foci of metal artifact. There is an osteotomy extending through the base of the proximal phalanx. The margins are well opposed and the appearance is consistent with ongoing healing. Arthrodesis is present at the proximal interphalangeal joint. At the second metatarsophalangeal joint there is ulnar displacement of the base of the small phalanx. There is deformity of the metatarsal head secondary to the previous surgery and edema is present in the subchondral bone. Marginal osteophytes are present. The tibial collateral ligament and the plantar plate both appear to be thinned and attenuated but I do not see discrete focal tears. No focal abnormality of the flexor or extensor tendons is seen. There is a joint effusion but it is similar in size to the adjacent third and first metacarpal phalangeal joints. At the first metacarpal phalangeal joint marginal osteophytes are present. There are small defects in the articular cartilage. No obvious disruption of the joint capsule is seen. Procedure Note Kolby Aguilar MD - 02/01/2016 EXAMINATION: MRI FOOT LEFT WO CONTRAST CLINICAL HISTORY: Left foot pain/ plantar plate tear TECHNIQUE: MR images of the forefoot were acquired. [id number] images were done density weighted images and T1-weighted images wereacquired. The study includes a 3-D acquisition in the coronal plane. COMPARISON: X-rays 01/24/2016. FINDINGS: At the second toe extensive surgical changes are present. There aremultiple small foci of metal artifact. There is an osteotomy extending through thebase of the proximal phalanx. The margins are well opposed and the appearanceis consistent with ongoing healing. Arthrodesis is present at the proximal interphalangeal joint. At the second metatarsophalangeal joint there is ulnar displacement of thebase of the small phalanx. There is deformity of the metatarsal head secondaryto the previous surgery and edema is present in the subchondral bone. Marginal osteophytes are present. The tibial collateral ligament and the plantar plate both appear to bethinned and attenuated but I do not see discrete focal tears. No focal abnormalityof the flexor or extensor tendons is seen. There is a joint effusion but itis similar in size to the adjacent third and first metacarpal phalangealjoints. At the first metacarpal phalangeal joint marginal osteophytes are present.There are small defects in the articular cartilage. No obvious disruption of thejoint capsule is seen. IMPRESSION IMPRESSION: 1. There is malalignment at the second metatarsophalangeal joint andthe plantar plate and collateral ligament appear thinned but no discreterupture is identified. 2. Healing osteotomy second proximal phalanx. 3. First metatarsal-phalangeal joint osteoarthritis. Stanley Koo MD [facility] MRI ORDERABLES documented in this encounter Visit Diagnoses Diagnosis Hammer toe of left foot S/P orthopedic surgery, follow-up exam Follow-up examination, following other surgery Hammer toe of left foot S/P orthopedic surgery, follow-up exam Follow-up examination, following other surgery documented in this encounter Care Teams Trophy Assembler Relationship Specialty Start Date End Date Sari Hay MD [facility] [address] [place] [address] PCP - General 05/21/11 documented as of this encounter
--- OUTSIDE RECORDS SUMMARY | 2024-04-26 15:51 | XMS_ITS | Encounter Summary ---
Author Organization [facility] Address [facility] [place] [address] Care Team Providers Care Biomedical Specialist Name Role Phone Sari Hay MD Primary Care Provider [phone] Encounter Details Date Type Department Care Team (Late st Contact Info) Description 04/20/2015 Orders [place] [address] Stanley Koo MD [facility] [place] [address] Left foot pain Social History Tobacco Use Types Packs/Day Years Used Date Smoking Tobacco: Never Assessed Sex and Gender Information Value Date Recorded Sex Assigned at Not on file Gender Identity Not on file Sexual Orientation Not on file documented as of this encounter Plan of Treatment Not on file documented as of this encounter Results * XR foot minimum 3 views (07/18/2015 2:29 PM EDT) Anatomical Region Laterality Modality Foot N/A Digital Radiogra phy Addenda Addendum by Leonila Matos MD on 07/18/2015 3:42 PM EDT Impression should read: No acute bony fracture. No significant degenerative disease. Impressions 07/18/2015 3:26 PM EDT IMPRESSION: No acute bony fracture. Significant degenerative disease. Narrative 07/18/2015 3:26 PM EDT EXAMINATION: XR FOOT MINIMUM 3 VIEWS/LEFT CLINICAL HISTORY: LEFT FOOT PAIN TECHNIQUE: Oblique, AP and lateral views left foot COMPARISON: None FINDINGS: No significant degenerative joint disease through the left foot. No acute bony fracture nor malalignment. No radiopaque nor metallic foreign body. Calcaneal pitch is 24 degrees. Procedure Note Leonila Matos MD - 07/18/2015 EXAMINATION: XR FOOT MINIMUM 3 VIEWS/LEFT CLINICAL HISTORY: LEFT FOOT PAIN TECHNIQUE: Oblique, AP and lateral views left foot COMPARISON: None FINDINGS: No significant degenerative joint disease through the left foot. No acutebony fracture nor malalignment. No radiopaque nor metallic foreign body.Calcaneal pitch is 24 degrees. IMPRESSION IMPRESSION: No acute bony fracture. Significant degenerative disease. Stanley Koo MD IMG DX ORDERABLES documented in this encounter Visit Diagnoses Diagnosis Left foot pain Pain in limb Left foot pain Pain in limb documented in this encounter Care Teams Biomedical Specialist Relationship Specialty Start Date End Date Sari Hay MD [address] [place] [address] PCP - General 05/21/11 documented as of this encounter
--- OUTSIDE RECORDS SUMMARY | 2024-04-26 15:51 | XMS_ITS | Encounter Summary ---
Author Organization [facility] [place] [address] Care Team Providers Care Sort Operations Supervisor Name Role Phone Sari Hay MD Primary Care Provider [phone] Encounter Details Date Type Department Care Team (Latest Contact Info) Description 05/22/2011 8:58 AM EDT - 05/22/2011 11:59 PM EDT Hospital [place] [address] CLINIC, Sari Barrera MD [facility] [address] [place] [address] Abnormal ultrasound of breast Discharge Disposition: Home Social History Tobacco Use Types Packs/Day Years Used Date Smoking Tobacco: Never Assessed Sex and Gender Information Value Date Recorded Sex Assigned at Not on file Gender Identity Not on file Sexual Orientation Not on file documented as of this encounter Miscellaneous Notes * Miscellaneous - Provider, Scanning - 06/13/2011 12:24 PM EDT * Miscellaneous - Provider, Scanning - 06/13/2011 12:21 PM EDT documented in this encounter Plan of Treatment Not on file documented as of this encounter Procedures Procedure Name Priority Date/Time Associated Diagnosis Comments SURGICAL PATHOLOGY REPORT Routine 05/22/2011 10:44 AM EDT MAMMO US BIOPSY BILATERAL Routine 05/22/2011 10:42 AM EDT Abnormal ultrasound of breast documented in this encounter Results * Surgical Pathology Report (05/22/2011 10:44 AM EDT) Surgical Pathology Report [id number] ? Location: 3S The signing pathologist has (i) examined the relevant preparation(s) for the specimen(s) and (ii) rendered or confirmed the diagnosis(es). . ?Pathology Surgical Pathology Final Report Clinical Information Specimen Submitted: A - Right breast U/S bx, lesion 1. Clinical History/Diagnosis: New MMG mass. ??U/S - hypoechoic circumscribed Cluster cysts, DCIS, FCD, IDC Report to: Sari Hay MD [facility] [address] [place] [address] Gross Description Labeled/Fixative: ? Right breast lesion 1, formalin. Qty/Size/Weight: ?Four needle core biopsies, ranging from ?0.8 x 0.2 cm to 1.7 x 0.2 cm, cylindrical cores of magallon-white and yellow-white, fatty and fibrofatty tissue. Sections/Processing : ??(T1) ??vms/SNS Microscopic Description Slides reviewed, microscopic description not recorded. Diagnosis Needle biopsies: ?Right breast. Diagnosis: ?Benign breast tissue with fibroadenomatous change and fibrosis. Microcalcifications : ??N/A. CR-0 05/23/11 [place] 05/23/11 Verified by: ? Devin Crenshaw MD ?Pathologist ?(Electronic Signature) The attending pathologist whose signature appears on this report has reviewed all diagnostic slides and has edited the gross and/or microscopic portion of the report in rendering the final pathologic diagnosis. SYED VILLALOBOS 05/22/2011 10:4 4 AM EDT Marj Velasco MD PATHOLOG Y/CYTOLOGY ORDERABLES SYED VILLALOBOS * Mammo- US biopsy (05/22/2011 10:42 AM EDT) Anatomical Region Laterality Modality Breast N/A Mammography 05/22/2011 10:4 2 AM EDT Addenda Addendum on 05/27/2011 8:35 AM EDT Addendum Begins Accession number [id number] is included in this study. ?? Addendum Ends Addendum on 05/26/2011 11:07 AM EDT Addendum Begins Accession number [id number] is included in this study. ?? Addendum Ends Impressions 05/23/2011 9:50 AM EDT Impression: concordant Recommendation: Stereotactic biopsy of mammographic lesion which does not correspond the the sonographic lesion that was biopsied. Results and recommendations discussed with the patient by phone 05-23-11 Comments: Sonographic lesion does not correlate with the mammographic abnormality and therefore stereotactic biopsy is recommended. I, Dr. Marj Lewis, performed the procedure without a resident. Home phone: [phone] Cell phone: [phone] Narrative 05/23/2011 9:50 AM EDT ULTRASOUND GUIDED BIOPSY OF THE LEFT BREAST ON 05/22/11: Informed consent was obtained, sterile technique and 1% lidocaine used for local anesthesia and ultrasound guidance used throughout the procedure. ?? Clinical indication: Left breast 6mm mass in the lower, outer quadrant at 0700, 6cm from the nipple. 12-gauge Atec US device 4 core biopsy specimens obtained. ?? A [employer] Atec 13 (US) Cylinder marker clip was placed. Cranio-caudal and lateral digital mammography performed to determine biopsy marker placement, which was shown to be at the biopsy site. Satisfactory sampling was obtained. There were no procedural complications. Imaging diagnosis: FCD versus DCIS versus IDC. Pathologic diagnosis: Fibroadenomatous change and ??fibrosis Procedure Note Marj Reddy MD - 05/27/2011 ULTRASOUND GUIDED BIOPSY OF THE LEFT BREAST ON 05/22/11: Informed consent was obtained, sterile technique and 1% lidocaine used for local anesthesia and ultrasound guidance used throughout the procedure. Clinical indication: Left breast 6mm mass in the lower, outer quadrant [id number], 6cm from the nipple. 12-gauge Atec US device 4 core biopsy specimens obtained. A [employer] Atec 13 (US) Cylinder marker clip was placed. Cranio-caudal andlateral digital mammography performed to determine biopsy marker placement, whichwas shown to be at the biopsy site. Satisfactory sampling was obtained. There were no procedural complications. Imaging diagnosis: FCD versus DCIS versus IDC. Pathologic diagnosis: Fibroadenomatous change and fibrosis IMPRESSION Impression: concordant Recommendation: Stereotactic biopsy of mammographic lesion which does not correspond the the sonographic lesion that was biopsied. Results and recommendations discussed with the patient by phone 05-23-11 Comments: Sonographic lesion does not correlate with the mammographic abnormality and therefore stereotactic biopsy is recommended. I, Dr. Marj Lewis, performed the procedure without a resident. Home phone: [phone] Cell phone: [phone] Erika Petersen MD IMG MAMMO ORDERABLES documented in this encounter Visit Diagnoses Diagnosis Abnormal ultrasound of breast Other (abnormal) findings on radiological examination of breast documented in this encounter Care Teams Sort Operations Supervisor Relationship Specialty Start Date End Date Sari Hay MD [address] [place] [address] PCP - General 05/21/11 documented as of this encounter
--- OUTSIDE RECORDS SUMMARY | 2024-04-26 15:51 | XMS_ITS | Encounter Summary ---
Author Organization [facility] Address [facility] [place] [address] Care Team Providers Care Vb Developer Name Role Phone Sari Hay MD Primary Care Provider [phone] Encounter Details Date Type Department Care Team (Late st Contact Info) Description 02/21/2016 [place] [address] Stanley Koo MD [facility] DR [place] [address] Social History Tobacco Use Types Packs/Day Years [...] encounter Miscellaneous Notes * Telephone Encounter - Stanley Koo MD - 02/21/2016 9:00 AM EDT Please see note under contacts. documented in this encounter Plan of Treatment Not on file documented as of this encounter Visit Diagnoses Not on filedocumented in this encounter Care Teams Vb Developer Relationship Specialty Start Date End Date Sari Hay MD [address] [place] [address] PCP - General 05/21/11 documented as of this encounter
--- OUTSIDE RECORDS SUMMARY | 2024-04-26 15:51 | XMS_ITS | Encounter Summary ---
Author Organization [facility] Address [facility] [place] [address] Care Team Providers Care Manager Facility Name Role Phone Sari Hay MD Primary Care Provider [phone] Encounter Details Date Type Department Care Team (Late st Contact Info) Description 10/11/2015 Orders [place] [address] Stanley Koo MD [facility] DR [place] [address] Hammer toe of left foot Social History [...] as of this encounter Visit Diagnoses Diagnosis Hammer toe of left foot documented in this encounter Care Teams Manager Facility Relationship Specialty Start Date End Date Sari Hay MD [address] [place] [address] PCP - General 05/21/11 documented as of this encounter
--- OUTSIDE RECORDS SUMMARY | 2024-04-26 15:51 | XMS_ITS | Encounter Summary ---
Author Organization [facility] Address [facility] [place] [address] Care Team Providers Care Candy Forming Machine Operator Name Role Phone Sari Hay MD Primary Care Provider [phone] Reason for Visit * Auth/Cert - Closed Specialty Diagnoses / Procedures Referred By Contbucky t Referred To Contact Diagnoses Other hammer toe(s) (acquired), left foot Left 2nd hammer Toe Procedures PRO OSTEOTOMY METATARSAL (NOT 1ST) PRO XFER SINGLE SUPERFICI LOW LEG TENDON OSTEOTOMY, METATARSAL, OTHER THAN FIRST, EACH TENDON TRANSFER, ANKLE, SUPERFICIAL Referral ID Status Reason Start Date Expiration Date Visits Re quested Visits Authorized [id number] Closed 1 1 Encounter Details Date Type Department Care Team (Late st Contact Info) Description 10/01/2015 7:26 AM EST Anesthesia Event [facility] [place] [address] Earl Torres MD [facility] [place] [address] Dafne Sullivan MD [facility] [place] [address] Anesthesia Record Procedure Summary Procedure Name Responsible Anesthesiologist Anesthesia Start Time Anesthesia Stop Time OSTEOTOMY, METATARSAL, OTHER THAN FIRST, EACH (WRVU 5.48) (Left: Foot) Earl Torres MD 10/01/15 0710/01/15 08 Events Date Time Event Comment 10/01/2015 0645 0726 Start 0729 AN Verify 0729 An Start Data 0730 An Induction 0731 An Intubation 0734 Anesthesia Ready 0750 Procedure Start Time out don e. Tourniquet up on left thigh at 250 mmHg. [address] Ankle block pl aced pre-op by Dr. Torres. 0816 An Tourn Deflated 26 minutes 0816 Extubation/LMA Out 0820 an stop data 0825 Recovery or ICU Handoff Kecia ent care was transferred to the destination unit staff after review of the patient's medical history, current anesthetic/surgical status and plan, according to the Provider Handoff Checklist. 0827 Stop Meds Name Total Midazolam 2 mg fentaNYL 75 mcg IV Lidocaine 40 mg Propofol 280 mg Ondansetron 8 mg Dexamethasone 8 mg ceFAZolin (ANCEF) 2 gram/50 mL infusion 2 g Dexmedetomidine INF 29.43 mcg Propofol INF 244.57 mg ePHEDrine 20 mg Lactated Ringers 0 mL * Agents Name O2 Air N2O Desflurane (et) * Blood No blood administrations on file. Lines, Drains, and Airways Type Details Placement Removal Incision 10/01/15; foot; 06/02/22 (LDA cleanup utility RA#[id number]); 1715 (LDA cleanup utility RA#[id number]) 10/01/15 0000 by Alma Hutchins RN 06/02/22 1715 by Sae Abdi (RETIRED) Peripheral IV Line - Single Lumen 10/01/15; 0646; median cubital vein right (antecubital fossa); ybmw-qod-nkjvpw catheter system; 20 gauge; Same Day RN; site benign ; no longer indicated, catheter intact, removed per policy/procedure; 10/01/15; 0937 10/01/15 0646 by Tiera Pope CRNA 10/01/15 0937 by Sole Marley, ODIN Supraglottic Mask Ventilation: No t Attempted (0); LMA Type: iGel; LMA Size: 4; Inserted by: Toshia SHELBY; Removal Date: 10/01/15; Removal Time: 0816 10/01/15 0731 by Tiera Pope CRNA 10/01/15 0816 by Tiera Pope CRNA documented in this encounter Social History Tobacco [...] OR Notes * Anesthesia Postprocedure Evaluation - Earl Torres MD - 10/01/2015 8:59 AM EST [facility] Department of Anesthesiology Post-procedure Note Patient: Sissy Eugene Procedure Summary Date Anesthesia Start Anesthesia Stop Room / Location 10/01/15 0726 0827 [facility] OR [address] [place] [address] [facility] Procedure Diagnosis Surgeon Responsible Provider OSTEOTOMY, METATARSAL, OTHER THAN FIRST, EACH (Left Foot); TENDON TRANSFER, ANKLE, SUPERFICIAL (Left Ankle) Hammer toe of left foot Stanley Koo MD Sites, Brian D, MD (Left 2nd hammer Toe) Last (1hr) Vitals: BP 104/64 mmHg (10/01/15 0845) Temp 36.2 ??C (97.2 ??F) (10/01/15 0822) Pulse 75 (10/01/15 0845) Resp 18 (10/01/15 0845) SpO2 93 % (10/01/15 0854) Patient Location: PACU/[facility] Level of Consciousness: Awake and Alert Pain Management: Satisfactory Analgesia PONV: Cardiovascular Status: At Baseline Respiratory Status: At Baseline Postoperative Fluid Status: Intravascular EUvolemia Possible Anesthetic Complications: NONE apparent at time of evaluation Final Primary Anesthesia Type: General (The anesthetic type performed was the same as planned.) Comments: Doing well, has no pain. * Anesthesia Procedure Notes - Earl Torres MD - 10/01/2015 7:46 AM EST Associated Order(s): ANESTHESIA BLOCK Procedure: Anesthesia Block Block: Post-op Pain Control, ankle block Indication/Prep Position: supine Prep: chlorhexidine, patient draped Laterality: left Ultrasound Guidance: live and upb-it-jpeiu Skin Medication lidocaine 1% 3 ml Injection Needle Length: 5 cm Gauge: 22 Needle Type: W-kyfus-eqwmd Medication injection made incrementally with aspirations. Ankle Block Nerve dosages Ropivicaine 0.5% Deep Peroneal 10 ml Saphenous 5 ml Superficial Peroneal 5 ml Tibial 10 ml Additional Notes No needle:nerve contact per ultrasound. No pain or paresthesia with injection. Negative heme with intermittent aspiration. Resident: Fellow: Attending Physician: Brian ~~~~~~~~~~~~~~~~~~~~~~~~~~~~~~~~~~~~~~~~~~~~~~~~~~~~~~~~~~~~ * Anesthesia Preprocedure Evaluation - Earl Torres MD - 09/29/2015 3:26 PM EST Pre-Anesthesia Evaluation for: Sissy Eugene a 49 y.o. female. Procedure(s): OSTEOTOMY, METATARSAL, OTHER THAN FIRST, EACH TENDON TRANSFER, ANKLE, SUPERFICIAL Patient Active Problem List Diagnosis ??? Hammer toe of left foot Second toe No past medical history on file. No past surgical history on file. History Substance Use Topics ??? Smoking status: Former Smoker -- 0.50 packs/day for 15 years Types: Cigarettes Quit date: 07/18/2003 ??? Smokeless tobacco: Never Used ??? Alcohol Use: Yes Comment: Rare History Drug Use No Allergies Allergen Reactions ??? Codeine Nausea Only Medications: MAR and/or home medications have been reviewed. Physical Exam: There were no vitals filed for this visit. There is no height or weight on file to calculate BMI. Airway Assessment: Mallampati: II TM distance: >3 FB Neck ROM: full Cardiovascular Assessment: Rhythm: regular Pulmonary Assessment: breath sounds clear to auscultation Dental Assessment: Misc Assessment: IV access: Peripheral line Anesthesia Plan: ASA 2 Regional and General, with a(n) intravenous induction This plan and note is formulated based on pre-operative chart review, the patient has not been examined. Anesthetic plan remains preliminary. Sissy Eugene is a 49 y.o. 120kg female former smoker with h/o hypothyroidism (levothyroxine), HTN (lisinopril), and hammertoe s/p surgical correction 2013 w/ persistent pain who presents for Procedure(s): OSTEOTOMY, METATARSAL, OTHER THAN FIRST, EACH TENDON TRANSFER, ANKLE, SUPERFICIAL with Dr. Koo. Patient's documented history was negative for seizures, CVA, cardiac disease, hepatic/renal diseaseor coagulopathy. There is no evidence of any recent URI symptoms, fevers/chills, or other signs of infection. Prior anesthetic history: No records on file Plan for ankle block and GA; standard ASA monitoring. The patient was informed of the risks, benefits and alternatives of anesthesia. These risks included, but were not limited to, post-operative nausea and/or vomiting, pain, sore throat, dental/lip trauma, and other rare but serious complications such as major organ damage, awareness, severe allergicreactions, position-related nerve injuries, and need blood transfusions. All questions sought and answered. Consent was signed and placed in chart. Bog Worker: I have seen and examined the patient. I have reviewed the medical record. I have reviewed the risksand benefits of GA and regional anesthesia. The patient would like a GA and ankle block for postoperative analgesia. Region - Other Informed Consent: PAT Staff Note documented in this encounter Plan of Treatment Not on file documented as of this encounter Procedures Procedure Name Priority Date/Time Associated Diagnosis Comments ANESTHESIA BLOCK Routine 10/01/2015 7:47 AM EST documented in this encounter Results * Anesthesia Block (10/01/2015 7:47 AM EST) Narrative Earl Torres MD - 10/01/2015 7:47 AM EST Earl Torres MD ? 10/01/2015 ??7:47 AM Procedure: ??Anesthesia Block Block: Post-op Pain Control, ankle block Indication/Prep Position: supine Prep: chlorhexidine, patient draped Laterality: left Ultrasound Guidance: live and ake-ol-arqas Skin Medication lidocaine 1% 3 ml Injection Needle Length: 5 cm Gauge: 22 Needle Type: R-ahgad-fbvdx Medication injection made incrementally with aspirations. Ankle Block Nerve dosages Ropivicaine 0.5% Deep Peroneal 10 ml Saphenous 5 ml Superficial Peroneal 5 ml Tibial 10 ml Additional Notes No needle:nerve contact per ultrasound. ??No pain or paresthesia with injection. ??Negative heme with intermittent aspiration. Resident: Fellow: Attending Physician: Sites ~~~~~~~~~~~~~~~~~~~~~~~~~~~~~~~~~~~~~~~~~~~~~~~~~~~~~~~~~~~~ Earl Torres MD MANAGER FINANCIAL CHGS documented in this encounter Visit Diagnoses Not on filedocumented in this encounter Administered Medications Inactive Administered Medications - up to 3 most recent administrations Medication Order MAR Action Action Date Dose Rate Site ceFAZolin (ANCEF) 2 gram/50 mL infusion 1 dose, Starting on Thu10/01/15 at 0622, Until Thu10/01/15 at 0734, MAN NOVA SCOTIA: cabinet override Given 10/01/2015 7:34 AM EST 2 g dexamethasone (DECADRON) injection PRN, Starting on Thu10/01/15 at 0735, Until Thu10/01/15 at 0839, Anesthesia Intra-op, Routine Given 10/01/2015 7:35 AM EST 8 mg dexmedetomidine (PRECEDEX) IV infusion (anesthesia) CONTINUOUS PRN, Starting on Thu10/01/15 at 0736, Until Thu10/01/15 at 0839, Anesthesia Intra-op, Routine [facility] 10/01/2015 7:36 AM EST 0.4 mcg/kg/hr 11.9 mL/hr ePHEDrine 5 mg/mL multi-dose injection PRN, Starting on Thu10/01/15 at 0805, Until Thu10/01/15 at 0839, Anesthesia Intra-op, Routine Given 10/01/2015 8:10 AM EST 10 mg Given 10/01/2015 8:05 AM EST 10 mg fentaNYL 50 mcg/mL multi-dose injection PRN, Starting on Thu10/01/15 at 0737, Until Thu10/01/15 at 0839, Pain, Anesthesia Intra-op, Routine Given 10/01/2015 7:57 AM EST 25 mcg Given 10/01/2015 7:41 AM EST 25 mcg Given 10/01/2015 7:37 AM EST 25 mcg lactated ringers infusion CONTINUOUS PRN, Starting on Thu10/01/15 at 0655, Until Thu10/01/15 at 0839, Anesthesia Intra-op New Bag 10/01/2015 6:55 AM EST lidocaine (PF) (XYLOCAINE) 100 mg/5 mL (2 %) injection PRN, Starting on Thu10/01/15 at 0730, Until Thu10/01/15 at 0839, Anesthesia Intra-op, Routine Given 10/01/2015 7:30 AM EST 40 mg midazolam (PF) (VERSED) 1 mg/mL multi-dose injection PRN, Starting on Thu10/01/15 at 0726, Until Thu10/01/15 at 0839, Sleep, Anesthesia Intra-op, Routine Given 10/01/2015 7:26 AM EST 2 mg ondansetron (ZOFRAN) injection PRN, Starting on Thu10/01/15 at 0810, Until Thu10/01/15 at 0839, Nausea, Anesthesia Intra-op, Routine Given 10/01/2015 8:10 AM EST 8 mg propofol (DIPRIVAN) 10 mg/mL bolus injection (Anesthesia) PRN, Starting on Thu10/01/15 at 0730, Until Thu10/01/15 at 0839, Anesthesia Intra-op Given 10/01/2015 7:57 AM EST 30 mg Given 10/01/2015 7:38 AM EST 20 mg Given 10/01/2015 7:31 AM EST 30 mg propofol (DIPRIVAN) infusion CONTINUOUS PRN, Starting on Thu10/01/15 at 0736, Until Thu10/01/15 at 0839, Anesthesia Intra-op, Routine New Bag 10/01/2015 7:36 AM EST 50 mcg/kg/min 35.8 mL/hr documented in this encounter Care Teams Candy Forming Machine Operator Relationship Specialty Start Date End Date Sari Hay MD [address] [place] [address] PCP - General 05/21/11 documented as of this encounter
--- OUTSIDE RECORDS SUMMARY | 2024-04-26 15:51 | XMS_ITS | Encounter Summary ---
Author [place] [address] Care Team Providers Care Termite Inspector Name Role Phone Sari Hay MD Primary Care Provider Encounter Details Date Type Department Care Team (Late st Contact Info) Description 01/24/2016 [place] [address] Yessi Freedman Social History Tobacco Use Types Packs/Day Years [...] on filedocumented in this encounter Care Teams Termite Inspector Relationship Specialty Start Date End Date Sari Hay MD [address] [place], [place] [id number] PCP - General 05/21/11 documented as of this encounter
--- OUTSIDE RECORDS SUMMARY | 2024-04-26 15:51 | XMS_ITS | Encounter Summary ---
Author Organization [facility] Address [facility] [place] [address] Care Team Providers Care Rerecording Mixer Name Role Phone Sari Hay MD Primary Care Provider [phone] Reason for Visit * Reason Onset Date Comments Appointment 02/11/2016 Encounter Details Date Type Department Care Team (Late st Contact Info) Description 02/11/2016 Tele[place] [address] Stanley Koo MD [facility] [place] [address] Appointment Social History Tobacco Use Types Packs/Day [...] encounter Miscellaneous Notes * Telephone Encounter - Chantal Angulo RN - 02/11/2016 2:14 PM EDT MRI results will be reviewed with Dr. Koo, then follow up with patient. Dr. Koo reports he will call patient. * Telephone Encounter - Lita Villanueva - 02/11/2016 9:10 AM EDT What study is patient calling about? MRI Per [facility] the study was done: 02/01/2016 Per [facility] the results are final: yes Best number to reach the patient # [phone] I will forward your message to the team and someone will follow up with you within 48 hours. For: Celia Diamond, and Dragan, follow procedure. For all other teams: send this message to the nurse. documented in this encounter Plan of Treatment Not on file documented as of this encounter Visit Diagnoses Not on filedocumented in this encounter Care Teams Rerecording Mixer Relationship Specialty Start Date End Date Sari Hay MD [address] [place] [address] PCP - General 05/21/11 documented as of this encounter
--- OUTSIDE RECORDS SUMMARY | 2024-04-26 15:51 | XMS_ITS | Encounter Summary ---
Author Organization [facility] Address [facility] [place] [address] Care Team Providers Care Data Analytics Developer Name Role Phone Sari Pacheco MD Primary Care Provider [phone] Reason for Visit * Auth/Cert - Closed Specialty Diagnoses / Procedures Referred By Contac t Referred To Contact Diagnoses Other hammer toe(s) (acquired), left foot Left 2nd hammer Toe Procedures PRO OSTEOTOMY METATARSAL (NOT 1ST) PRO XFER SINGLE SUPERFICI LOW LEG TENDON OSTEOTOMY, METATARSAL, OTHER THAN FIRST, EACH TENDON TRANSFER, ANKLE, SUPERFICIAL Referral ID Status Reason Start Date Expiration Date Visits Re quested Visits Authorized [id number] Closed 1 1 Encounter Details Date Type Department Care Team (Latest Contact Info) Description 10/01/2015 6:15 AM EST - 10/01/2015 9:48 AM [facility] Hospital Encounter [place] [id number] Stanley Koo MD [facility] [place] [address] Hammer toe of left foot Discharge Disposition: [...] Sign Reading Time Taken Comments Blood Pressure 106/62 10/01/2015 9:00 AM EST Pulse 63 10/01/2015 9:00 AM EST Temperature 36.2 ??C (97.2 ??F) 10/01/2015 8:22 AM ES T Respiratory Rate 18 10/01/2015 9:00 AM EST Oxygen Saturation 95% 10/01/2015 9:00 AM EST Inhaled Oxygen Concentration - - Weight 119.3 kg (263 lb) 10/01/2015 6:25 AM EST Height 177.8 cm (5' 10) 10/01/2015 6:25 AM EST Body Mass Index 37.74 10/01/2015 6:25 AM EST documented in this encounter Discharge Instructions * Discharge Instructions* Sole Peña RN - 10/01/2015 8:34 AM EST Images from the original note were not included. ORTHOPAEDIC SURGERY DISCHARGE INSTRUCTIONS Activity: Do not weight bear on your left leg remembering to use crutches or walker at all times for balance and protection. Diet: Resume normal diet but increase your intake of fluids and fiber while you are on narcotic pain meds to prevent constipation Driving: No not until you are cleared to do so by your orthopedic surgeon. Ideally you should not drive while on narcotic pain meds as these can affect judgement and reaction time. Contact you surgeon with any questions/concerns. Medications: ?? The pain medication you are on can cause constipation so increase your intake of fluids and fiber while you are on them. You can take the stool softener, sennakot, that was ordered to facilitate abowel movement. If needed an hhtf-xuo-tjobqzh medication, miralax can also be used to help. ?? If you need a renewal on your narcotic pain medication, please call the Orthopedic clinic duringbusiness hours three business days in advance to you running out. ?? Do NOT take any NSAIDS (advil, motrin, aleve, ibuprofen) until you are cleared to do so by your Orthopedic surgeon. These types of medications can affect bone healing. ?? Take one aspirin 325 mg once daily until follow up to help prevent blood clots Shower/Bath: Keep your postop Dressing dry at all times - so cover it with a bag taped at the top. Remember to maintain your activity limitations, so use a chair when showering. DO NOT submerge your dressing or splint. It might be easier to sponge bath until you are seen in followup. Wound care: Keep your postop Dressing on until your followup appointment. Keep it clean and dry. Keep your foot elevated as much as possible to help decrease swelling and control your pain. Call your doctor if: ? ? You have a fever > 101.5 or experience chills ??? Increased discharge from the incision ??? Any redness or swelling around the incision ??? Increased pain or change in the pain that is not controlled by your pain meds Future Appointments Date Time Provider Department Center 10/11/2015 9:30 AM Stanley Koo MD [facility] [address] [place] [address] Contact Information: Your orthopaedic surgeon:Stanley Koo MD: Sports: [phone] If it is after 5:00PM on a weekday or a weekend and it is of an urgent nature please call [phone] and ask for the on-call orthopaedic resident. Your Primary Care Physician: SARI PACHECO MD [phone] General Anesthesia Discharge Instructions Go home and rest. You may be sleepy for several hours. Take it easy as sudden position changes may cause nausea and/or dizziness. Use caution on stairs. Follow a light to regular diet as tolerated today. If nausea occurs, start with clear liquids, and progress slowly to a regular diet. Do not drive, operate machinery, drink alcoholic beverages or make any legal decisions after havinggeneral anesthesia. The medications given change your reaction time and alter your judgement. IV site -- slight redness is normal, you can use warm compresses. If tenderness and redness increases or foul drainage occurs, please contact your M.D. Patients who have had endotracheal tubes/LMA (tubes used by the anesthesia staff to ensure a safe airway during your operation) may have a sore throat. This is normal and cold liquids or soothing lozengers will help ease this discomfort. Narcotic pain medications can cause constipation, please ask the surgeons office what they recommend for prevention of this. Some non-pharmaceutical means of constipation prevention include increasing intake of fluids, eating more fruits and vegetables as well as fruit juices. If you are uncomfortable and/or unable to urinate within 8 hours of discharge and it is before 5 pm, call your physician. If it is after 5pm go to the closest emergency room or call the hospital shear operator helper at [phone] and ask for physician television news producer covering for your physician. Questions or problems after 5pm or on a weekend: Call the [facility] shear operator helper at and ask for the physician television news producer covering for your doctor. Lower Extremity Nerve Block Nerve blocks affect many types of nerves. The affected nerves control movement, pain, and normal sensation. This causes feelings such as: ?? Weakness ?? Numbness ?? Tingling ?? Heaviness ?? A feeling that your leg or foot has fallen asleep. A nerve block can last from about 2 to 48 hours, depending on the medications used. Usually the weakness wears off first, then you will feel a numb or tingly sensation. Finally, the pain may come back. This can happen in any order. If you continue to feel the effects of the nerve block for longer than 48 hours, please call the Anesthesiology department at . Pain Medication If needed, your surgeon will give you a prescription for pain medication. Start taking this medication before the nerve block wears off. Nerve blocks sometimes wear off during the night. It is a goodidea to take your pain medicine as prescribed before going to sleep so you won't wake up with pain.The idea is to have pain medicine in your body before the nerve block wears off. To help prevent nausea, eat something before taking the pain medicine. Once a nerve block starts to wear off, it is usually completely gone within 60 minutes. It is important to have pain medicine in your system before the block wears off completely. Helpful tips to protect the part of your body that is numb. After a nerve block, you cannot feel pain, pressure, or extremes in temperature. Because your leg or foot is numb, it is more at risk for injury. Therefore.... ?? While you are awake, try to change positions of your leg or foot often. This will help you avoidputting too much pressure on the limb for long periods of time. ?? While sleeping, pad the blocked limb with pillows to avoid placing too much pressure on the limb. ?? If you have a cast or a tight dressing, check the color of your toes every couple of hours. Callyour doctor if any look discolored. ?? Ask your family or support people to help with the above hints. QUESTIONS? Please call the Anesthesiology department at with concerns or after hours and ask for the anesthesiologist television news producer. [facility] Learning About Deep Vein Thrombosis What is deep vein thrombosis? A deep vein thrombosis (DVT) is a blood clot in certain veins of the legs, pelvis, or arms. The clot is usually in the legs. DVT may damage the vein and cause the area to ache, swell, and change color. DVT also can lead to sores. DVT in these veins needs to be treated because the clots can get bigger, break loose, and travel through the bloodstream to the lungs. A blood clot in a lung can cause . Blood clots can form in the veins when you are not active for a long period of time. For example, they can form if you need to stay in bed because of a health problem or must sit for a long time on an airplane or in a car. Surgery or an injury can damage your blood vessels and cause a clot to form.Cancer also can cause DVT. And some people have blood that clots too easily, which is a problem that may run in families. A risk factor is something that makes you more likely to develop a disease. Here are some major risk factors for DVT: You have surgery. You have to stay in bed for more than 3 days (such as in the hospital). Your blood is likely to clot because of an injury, cancer, or inherited condition. Here are some minor risk factors for DVT: You take control hormones. You are . You are in a car or airplane for a long trip. What are the symptoms? Symptoms of DVT may include: Swelling in the affected area. Redness and warmth in the affected area. Pain or tenderness. You may have pain only when you touch the affected area or when you stand or walk. If your doctor thinks you may have DVT, you will probably have an ultrasound test. You may have other tests as well. How can you prevent DVT? Exercise your lower leg muscles to help blood flow in your legs. Point your toes up toward your head so the calves of your legs are stretched, then relax and repeat. This is a good exercise to do when you are sitting for long periods of time. Get out of bed as soon as you can after an illness or surgery. If you need to stay in bed, do the leg exercise noted above every hour when you are awake. Use special stockings called compression stockings. These stockings are tight at the feet with a gradually looser fit on the leg. Many doctors recommend that you wear compression stockings during a journey longer than 8 hours. Take breaks when you are on long trips. Stop the car and walk around. On long airplane flights, walk up and down the aisle hourly, flex and point your feet every 20 minutes while sitting, and drink plenty of water. Take blood-thinning medicines before and after some types of surgery if your doctor recommends it. Blood thinners also may be used if you are likely to develop clots. How is DVT treated? Treatment for DVT usually involves taking blood thinners. These medicines are given through a vein (intravenously, or IV) or as a pill. You will have blood tests often so your doctor can see how wellthe blood thinners are working. Your doctor also may suggest that you prop up or elevate your leg when possible, take walks, and wear compression stockings. These measures may help reduce the pain and swelling that can happen with DVT. Follow-up care is a nugent part of your treatment and safety. Be sure to make and go to all appointments, and call your doctor if you are having problems. It's also a good idea to know your test resultsand keep a list of the medicines you take. Where can you learn more? Visit our health information library at [email or web address]. You can alsoview health information on [email or web address], your personal patient account. Log in or sign up today. Enter X941 in the search box to learn more about Learning About Deep Vein Thrombosis. ?? [phone] [employer]. Care instructions adapted under license by [facility]. This care instruction is for use with your licensed healthcare professional. If you have questions about a medical condition or this instruction, always ask your healthcare professional. [employer] disclaims any warranty or liability for your use of this information. Content Version: 8.9.82617; Last Revised: November 20, 2009 documented in this encounter Medications at Time of Discharge Medication Sig Dispensed Refills Start Date End Date oxyCODONE (ROXICODONE) 5 mg Tablet Take 1 tablet by mouth every 4 hours as needed for Pain. 30 tablet 0 10/01/2015 11/08/2015 levothyroxine (SYNTHROID) 25 mcg Tablet Take 25 mcg by mouth daily. 02/24/2015 10/25/2015 lisinopril (PRINIVIL;ZESTRIL) 30 mg Tablet Take 30 mg by mouth daily. 02/24/2015 10/28/2019 documented as of this encounter Progress Notes * Neda Chen RN - 10/01/2015 7:00 AM EST Block end * Neda Chen RN - 10/01/2015 6:54 AM EST Block start documented in this encounter H&P Notes * Stanley Koo MD - 10/01/2015 7:19 AM EST Patient Name: Sissy Eugene Patient Age: 49 y.o. Birthdate: 1965 Admit date: 10/01/2015 Attending Physician: Stanley Koo MD See scanned document for pre-procedural H&P completed on 09/25/15. * Stanley Koo MD - 10/01/2015 7:19 AM EST The patient's history and physical exam have been reviewed and completed. There has been no interval change from that of the pre-operative history and physical exam done within the last 30 days. documented in this encounter Miscellaneous Notes * Op Note - Anabell Foley MD - 10/01/2015 8:22 AM EST Operative Note Patient Name: Sissy Eugene : [id number] MR#: [id number] Case Date: 10/01/2015 Surgeon: Surgeon(s) and Role: * Stanley Koo MD - Primary * Anabell Foley MD - Resident-Surgeon Chief Preoperative diagnosis: Left 2nd hammer Toe Postoperative diagnosis: left 2nd hammer toe Procedure(s): OSTEOTOMY,PROXIMALPHALANX TENDON TRANSFER, ANKLE, SUPERFICIAL Anesthesia: Anesthesia type not filed in the log. Findings: EARLY DJD MET HEAD Complications: NONE Fluids: CRYSTALLOID ONLY Estimated Blood Loss: * No values recorded between 10/01/2015 7:50 AM and 10/01/2015 8:17 AM * Drains: Disposition: awakened from anesthesia, extubated and taken to the recovery room in a stable condition, having suffered no apparent untoward event. Condition: doing well without problems Infection Bundle used? N/A INDICATIONS: A 49-year-old female presented to Dr. Koo with plantar pain at the base of her second toe. The patient has a history of a PIP fusion in her left second toe for treatment of hammertoe. Given her symptoms, a discussion was had and decision was made to proceed to the operating room for a Girdlestone tendon transfer of the second toe and possible osteotomies for potential Gabi osteotomy or wedge osteotomy for correction of varus attitude of the second toe. PROCEDURE: Site was marked. Consent was signed. The patient was taken to the operative suite. Anesthesia was initiated per the Anesthesia team. Antibiotics were administered and a time-out was conducted according to universal protocol. The left lower extremity was prepped and draped in standard sterile fashion. An approximately 3-cm long midline dorsal incision was marked out and an approximately 2-cm long plantar incision was marked out over the dorsum and plantar aspect of the second metatarsal and phalanx. The dorsal incision was created first with a 15 scalpel through the superficial tissue and then tenotomy scissors through the subcutaneous tissue. The extensor tendon was identified and protected. A #15 scalpel was used to incise the capsule of the second MTP joint and the metatarsal head was exposed. Attention was then turned to the plantar aspect of the foot. A #15 scalpel was used to incise through the skin and then tenotomy scissors was used to dissect down to the level of the flexor tendon. A #11 scalpel was used to percutaneously divide the flexor tendon 1 cm distal to the incision site and then a snap was used to pull the flexor tendon through the proximal incision. The flexor tendon was divided in its midline lengthwise approximately 1.5 cm and then a snap was used to pass the medial and lateral aspects of the divided flexor tendon from plantar to dorsal around the phalanx. The toe was plantarflexed while the ankle was dorsiflexed and then the tendon was secured with a 3.0 FiberWire over the dorsum of the foot by crossing the tendon with appropriate pressure and then fastening it in place with two jeahda-iy-gfccu FiberWire stitches. The phalanx was found to lie in an appropriate position, however, it still had a mild varus deformity. In order to address the varus deformity, a small saw blade was used to create a medial wedge osteotomy. The osteotomy was created just distal to the joint and a medial wedge shape portion of bone was removed. Intraoperative x-ray confirmed the phalanx to be in appropriate position and clinically with the foot in plantar flexion, the toe sat in appropriate alignment. The medial and plantar wounds were copiously irrigated with sterile saline and then closed with 3-0 Vicryl and nylon sutures in a vertical mattress fashion. The wounds were dressed with Xeroform gauze, ABDs, Webril, and an Clemente wrap. The patient was awoken from anesthesia having suffered no apparent untoward events. All counts were correct at the end of the case. Dr. Koo was present and scrubbed for the entirety of the case. * Brief Op Note - Stanley Koo MD - 10/01/2015 8:21 AM EST Brief Operative Note Patient Name: Sissy Eugene : [id number] MR#: [id number] Case Date: 10/01/2015 Surgeon: Surgeon(s) and Role: * Stanley Koo MD - Primary * Anabell Foley MD - Resident-Surgeon Chief Preoperative diagnosis: Left 2nd hammer Toe Postoperative diagnosis: left 2nd hammer toe Procedure(s): OSTEOTOMY,PROXIMALPHALANX TENDON TRANSFER, ANKLE, SUPERFICIAL Anesthesia: Anesthesia type not filed in the log. Findings: EARLY DJD MET HEAD Complications: NONE Fluids: CRYSTALLOID ONLY Estimated Blood Loss: * No values recorded between 10/01/2015 7:50 AM and 10/01/2015 8:17 AM * Drains: Disposition: awakened from anesthesia, extubated and taken to the recovery room in a stable condition, having suffered no apparent untoward event. Condition: doing well without problems Infection Bundle used? N/A Attestation: Case Date: 10/01/2015 I was present and I participated during the entire procedure (does not need to include opening and closing). (Please see the Surgical Encounter Summary for any Implant and Specimen details pertinent to this patient.) documented in this encounter Plan of Treatment Pending Results Name Type Priority Associated Diagnoses Date /Time FILM LIBRARY-FLUORO OR [id number] ONL Imaging Routine 10/01/2015 8:1 9 AM EST Scheduled Orders Name Type Priority Associated Diagnoses Orde r Schedule FILM LIBRARY-FLUORO OR [id number] ONL Imaging Routine Once PRN (f or Radiant use) for 1 Occurrences starting 10/01/2015 until 10/01/2015 documented as of this encounter Procedures Procedure Name Priority Date/Time Associated Diagnosis Comments TENDON TRANSFER, ANKLE, SUPERFICIAL (WRVU 9.17) 10/01/2015 7:28 AM EST Hammer toe of left foot OSTEOTOMY, METATARSAL, OTHER THAN FIRST, EACH (WRVU 5.48) 10/01/2015 7:28 AM EST Hammer toe of left foot documented in this encounter Visit Diagnoses Diagnosis Hammer toe of left foot documented in this encounter Administered Medications Inactive Administered Medications - up to 3 most recent administrations Medication Order MAR Action Action Date Dose Rate Site acetaminophen (TYLENOL) tablet 1,000 mg 1,000 mg, Oral, EVERY 8 HOURS SCHEDULED, First dose on 10/01/15 at 0845, Until Discontinued, Maximum total acetaminophen dose 4 grams per 24 hours., Recovery (Recovery-Hospital Unit), Routine Given 10/01/2015 8:51 AM EST 1,000 mg documented in this encounter Active and Recently Administered Medications Times are shown in EST. Scheduled Medication Order 09/29/2015 09/30/2015 10/01/2015 acetaminophen (TYLENOL) tablet 1,000 mg (CANCELED) 1,000 mg, Oral, EVERY 8 HOURS SCHEDULED, First dose on Thu10/01/15 at 0845, Until Discontinued, Maximum total acetaminophen dose 4 grams per 24 hours., Recovery (Recovery-Hospital Unit), Routine 0851 (Given - Provid er: Sole Peña RN - Comment: pt states no pain just slight discomfort) PRN Medication Order 09/29/2015 09/30/2015 10/01/2015 fentaNYL (PF) 50 mcg/mL 2mL syringe (CANCELED) 50 mcg, Intravenous, EVERY 5 MIN PRN, Pain, or prior to injection of local anesthetic., Starting on Thu10/01/15 at 0619, Until Thu10/01/15 at 0948, Hold for respiratory rate less than 8 breaths per minute. (maximum dose 200 mcg), Day of Surgery (Day of Procedure) 0652 (Given - Provid er: Neda Chen RN) midazolam (PF) (VERSED) 1 mg/mL injection 1 mg (CANCELED) 1 mg, Intravenous, EVERY 5 MIN PRN, Starting on Thu10/01/15 at 0619, Until Thu10/01/15 at 0948, Sleep, or prior to injection of local anesthetic, Hold for delirium/agitation. (Maximum dose 5 mg)., Day of Surgery (Day of Procedure), Routine 0652 (Given - Provid er: Neda Chen RN) No Frequency Medication Order 09/29/2015 09/30/2015 10/01/2015 ceFAZolin (ANCEF) 2 gram/50 mL infusion (COMPLETED) 1 dose, Starting on Thu10/01/15 at 0622, Until Thu10/01/15 at 0734, MAN IGNACIA: cabinet override 0734 (Given - Provid er: Tiera Pope CRNA) documented in this encounter Care Teams Data Analytics Developer Relationship Specialty Start Date End Date Sari Pacheco MD [address] [place] [address] PCP - General 05/21/11 documented as of this encounter
--- OUTSIDE RECORDS SUMMARY | 2024-04-26 15:51 | XMS_ITS | Encounter Summary ---
Author Organization [facility] Address [facility] [address] Care Team Providers Care Supervisor Estimator And Drafter Name Role Phone Sari Hay MD Primary Care Provider [phone] Reason for Visit * Reason Comments Hospital Transfer Knee Pain concern for peripros thetic knee infection * Auth/Cert Specialty Diagnoses / Procedures Referred By Emmanuel cisneros Referred To Contact Diagnoses Infection of prosthetic left knee joint Procedures EMERGENCY IPI Referral ID Status Reason Start Date Expiration Date Visits Re quested Visits Authorized [id number] 1 1 Encounter Details Date Type Department Care Team (Late st Contact Info) Description 02/10/2019 11:00 AM EDT - 02/10/2019 1:58 PM EDT [place] [address] Rod Valdez MD [facility] DR [place] [address] @TOTAL KNEE REVISION ARTHROPLASTY, ONE COMPONENT (WRVU [...] Sign Reading Time Taken Comments Blood Pressure 107/57 02/10/2019 1:52 PM EDT Pulse 78 02/10/2019 1:52 PM EDT Temperature 37.2 ??C (99 ??F) 02/10/2019 1:52 PM EDT Respiratory Rate 16 02/10/2019 1:52 PM EDT Oxygen Saturation 96% 02/10/2019 1:52 PM EDT Inhaled Oxygen Concentration - - Weight 125.6 kg (277 lb) 02/10/2019 10:51 AM EDT Height 177.8 cm (5' 10) 02/10/2019 10:51 AM EDT Body Mass Index 39.75 02/10/2019 10:51 AM EDT documented in this encounter Discharge Summaries * Maria Luisa Gross PA - 02/15/2019 7:07 AM EDT Discharge Summary Patient Name: Sissy Eugene Patient Age: 53 y.o. Language: Hong Konger Race: White Ethnicity: Not nor Admit date: 02/10/2019 Discharge date and time: 02/15/2019 Attending Physician: Rod Valdez MD Discharge Physician: Rod Valdez MD Follow-up Recommendations for Providers: See discharge instructions for additional details. Future Appointments Date Time Provider Department Center 03/03/2019 10:00 AM Naina King DO [facility] 03/09/2019 1:30 PM [facility] DX ROOM 3 Xray [facility] Rad Clin 03/09/2019 2:30 PM Rod Valdez MD [facility] Ortho 3C [facility] 03/16/2019 9:30 AM Renato Burton MD [facility] Inpatient Provider Contact Information: Rod Valdez MD Orthopedics: [phone] After hours and weekends, call [facility] [place], , and have the Orthopedic resident paged. [...] 21.12) 02/11/2019 Catheter type: PICC Lot number: [id number] Procedure Details: Order received for catheter placement. A 4 Fr. single lumen Cellectis Power catheter was placed into the right [...] cell count and differential. ??Repeat markers at [facility] were elevated with CRP of 18 and [...] Discharge to: Home HOME HEALTH CARE AGENCY: ??[facility] ?? PHONE: [phone] FAX: [phone] Updated Allergies/ADRs: Allergies Allergen Reactions ??? Adhesive [...] bowel movement. You can also take an camr-pkq-flwewmw medication, Miralax if needed to combat constipation. [...] Some patients have an additional item called Prinezra on their skin. If you have this [...] maintain patency. 4. Please notify OPAT Program ([phone]) whenever you are unable to withdraw blood. Call your doctor ([phone]) if you develop: 1. Fever greater than 100.5 2. Severe nausea or vomiting 3. Increasing pain that is not controlled by pain medications 4. Increasing redness, swelling, or drainage from incisions 5. Change in sensation FOLLOW-UP APPOINTMENTS: 1. You will have follow-up appointments at [facility] as indicated below in Future Appointment and Orders. 2. You will need to have x-rays prior to your follow-up appointment on 03/09/19. Please come to Radiology, desk 3T, 1 hour BEFORE that appointment for those x-rays. Future Appointments Date Time Provider Department Center 03/03/2019 10:00 AM Naina King DO [facility] 03/09/2019 1:30 PM [facility] DX ROOM 3 MH Xray Leb Rad [...] resident on-call. General Instructions OFFICE OF CARE MANAGEMENT/Sales Center Manager/PROGRESS NOTE e-DH reviewed. Report received from Patient [...] administration and teaching reinforcement VN agency is: [facility] PHONE: [phone] FAX: [phone] Home Infusion Vendor: Patient requested referral to [place], [place] or Plan: CM will continue to follow for coordination of care and to facilitate discharge planning. Future Appointments and Orders Future Appointments and Orders Future Appointments Provider Department Dept Phone 03/03/2019 10:00 AM Naina King DO Infectious Disease at [place] Arrive at: [facility] Area 5C [phone] 03/09/2019 1:30 PM [facility] DX ROOM 3 XRay at [place] Arrive at: [facility] Dist[facility] Operator Area 3T [phone] Please go to Asphalt Distributor Operator Area 3T ([place] Location). 03/09/2019 2:30 PM Rod Valdez MD Orthopaedics at [place] Arrive at: [facility] Dist[facility] Operator Area 3C [phone] 03/16/2019 9:30 AM Renato Burton MD Infectious Disease at [place] Arrive at: [facility] Dist[facility] Operator Area 5C [phone] Future Orders Complete By Expires XR Knee 1-2 Views Left (Generic) [42018 Custom] 03/10/2019 09/09/2019 Process Instructions: Scheduling Instructions: Comments: Questions: Where will study be performed?: [facility] Portable exam?: Reason for exam and clinical history: s/p polyswap 02/10/19 Other pertinent information: Is the patient ?: Unknown Stat read required?: Date of injury if applicable: Requested Time: OPAT: Order / Recommendation for Post Discharge IV Antibiotic Management [EXE069 CPT(R)] As directed Process Instructions: If no progress note charted, please enter Clinical details in comments. Scheduling Instructions: Comments: Please Fax all results to: OPAT Program Infectious Disease Section [facility], [place] [address] FAX: Line care instructions per [facility] OPAT Program protocol. After hours, please contact the Infectious Disease Physician video production intern at . If this order was signed greater than 72 hours prior to [facility] discharge, please call to confirm the accuracy [...] Alma Matthew MD Referral for Outpatient Antibiotics [[id number] CPT(R)] As directed Process Instructions: Scheduling Instructions: Comments: See OPAT orders for specific abx. Flushes Per protocol. Coordinate with [facility] Care Agency [facility]. PHONE: [phone] FAX: [phone] Questions: Vendor / contact information: [facility] Patient location post discharge: home Service requested: antibiotics via PICC line Start date: 02/14/2019 Responsible MD post discharge contact info: ortho/pcp Referral to Home Health - at DISCHARGE [[id number] CPT(R)] As directed Process Instructions: Scheduling Instructions: Comments: DOCUMENTATION FOR VNA SERVICES (INCLUDING THOSE PATIENTS WITH MEDICARE COVERAGE REQUIRING HOME VNA SERVICES AND/OR HOSPICE SERVICES) PATIENT'S LOCATION: [address] [address] (home) Cell: Telephone Information: Learning Design Specialist's Name: patient and spouse In discussion with the attending physician, it is certified that this patient is under their care and that they, or a Nurse Practitioner,Clinical Nurse specialist or Physician Station Air Traffic Control Specialist who is working directly with them, had [...] PICC line dressing change weekly. Supplies from: [place], [place] or Venous Access Device Maintenance Protocols [...] program if appropriate. HOME HEALTH CARE AGENCY: [facility] PHONE: [phone] FAX: [phone] Start of care: 02/14/2019 Please note that any additional orders needs or changes will need to be obtained from this patient's PCP: MD Margarita [address] / [facility] [id number] All A agencies which cover the area of patient's residence have been reviewed, either verbally shaun writing, and patient/family have chosen the home health care agency noted Questions: Agency name and contact information: [facility] Patient location post discharge: home What services are requested: Registered Nurse Start date: 02/14/2019 Responsible MD post discharge contact info: ortho/pcp Primary Care Provider: Sari Hay MD [phone] Discharge References/Attachments None documented in this encounter Discharge Instructions * Discharge Instructions* Janene Hu RN - 02/14/2019 10:35 PM EDT OFFICE OF CARE MANAGEMENT/Sales Center Manager/PROGRESS NOTE e-DH reviewed. Report received from Patient [...] patient to discharge tomorrow, Thursday, 02/15 and [facility] will deliver antibiotic scheduled for 3pm to patient's home. VN is scheduled to arrive at patient's home between 3 and 4 pm Thursday for administration and teaching reinforcement VN agency is: [facility] PHONE: [phone] FAX: [phone] Home Infusion Vendor: Patient requested referral to [place], [place] or Plan: CM will continue to [...] bowel movement. You can also take an yqpn-neq-aocivnu medication, Miralax if needed to combat constipation. [...] maintain patency. 4. Please notify OPAT Program ([phone]) whenever you are unable to withdraw blood. Call your doctor ([phone]) if you develop: 1. Fever greater than 100.5 2. Severe nausea or vomiting 3. Increasing pain that is not controlled by pain medications 4. Increasing redness, swelling, or drainage from incisions 5. Change in sensation FOLLOW-UP APPOINTMENTS: 1. You will have follow-up appointments at [facility] as indicated below in Future Appointment and Orders. 2. You will need to have x-rays prior to your follow-up appointment on 03/09/19. Please come to Radiology, desk 3T, 1 hour BEFORE that appointment for those x-rays. Future Appointments Date Time Provider Department Center 03/03/2019 10:00 AM Naina King DO [facility] 5[facility] 03/09/2019 1:30 PM [facility] DX ROOM 3 Xray Le[facility] Rad Clin [...] Meade MD Infectious Disease Fellow Personal Pager #[phone] 02/15/2019 * Liliana Cisneros RN - 02/15/2019 [...] Pager # Check daily e-DH reviewed. This life insurance underwriter confirmed that Adebayo can see patient tonight for initial dose of antibiotic @ 8:30 Pt ready to D/C [place] will deliver medication to home between 4 pm and 6pm. ?? Plan: CM will continue to follow for coordination of care and to facilitate discharge planning. ? Corine Hu RN CM Pager [phone] * Pia Bennett MD - 02/15/2019 5:48 [...] Brisk capillary refill distally. DP pulse palpable. WWP Lab Results Component Value Date NA [...] Infec 5C [facility] 03/09/2019 1:30 PM [facility] DX ROOM 3 MH Xray Leb Rad Clin 03/09/2019 2:30 PM Rod Valdez MD Leb Ortho 3[facility] 03/16/2019 9:30 AM Renato Burton MD [facility] * Janene Hu RN - 02/14/2019 2:49 PM EDT OFFICE OF CARE MANAGEMENT/Sales Center Manager/PROGRESS NOTE e-DH reviewed. Report received from Patient [...] administration and teaching reinforcement VN agency is: [facility] PHONE: [phone] FAX: [phone] Home Infusion Vendor: Patient requested referral to [place], [place] or Plan: CM will continue to follow for coordination of care and to facilitate discharge planning. Janene Hu RN CM Pager [phone] * Pia Bennett MD - 02/14/2019 5:43 [...] better with new dressing. Looking forward to DC home today. Denies any increased left [...] Time Provider Department Center 03/09/2019 1:30 PM [facility] DX ROOM 3 Xray Leb Rad Clin 03/09/2019 2:30 PM [facility] Valdez [facility] * Renato Burton MD - 02/13/2019 3:24 [...] Time Provider Department Center 03/09/2019 1:30 PM [facility] DX ROOM 3 Xray Leb Rad Clin [...] Time Provider Department Center 03/09/2019 1:30 PM [facility] DX ROOM 3 MH Xray Leb Rad [...] was instructed to contact Regional Anesthesia Team ([id number]) for any unresolved sensory or motor deficits. ?? Thank you for the opportunity to have participated in the care of this patient. NICHOLAS NUNEZ MD Regional Team pager [phone] Associated attestation - Zeb Maldonado MD - 02/13/2019 7:59 PM EDT I have seen and examined the patient, providing nugent components as outlined below. I have reviewed the resident???s above note; * Hossein Bangura Ping - 02/11/2019 5:51 AM EDT ORTHOPAEDIC SURGERY INPATIENT PROGRESS NOTE Patient Name: Sissy Eguene Age: 53 y.o. Surgery/Issue: Left Total Knee [...] Intake/Output Summary (Last 24 hours) at 02/11/2019 0551 Last data filed at 02/11/2019 0439 Gross per 24 hour Intake 2440 ml [...] Time Provider Department Center 03/09/2019 1:30 PM [facility] DX ROOM 3 Xray Leb Rad Clin [...] Time Provider Department Center 03/09/2019 1:30 PM [facility] DX ROOM 3 MH Xray Leb Rad Clin 03/09/2019 2:30 PM Rod Valdez MD [facility] Ortho [facility] * Liliana Martinez RN - 02/10/2019 3:47 PM EDT Patient admitted to at approximately 15:45. NS running at 100ml/hr into right AC. See doc flow for VS. Patient rating pain 10. Dressing to left knee c/d/i, cryocuff on. Patient states her last BM was 02/09. Patient denies any numbness or tingling at this time. See doc flow for full head to toe. Will continue to monitor. Liliana Martinez RN * Lillian Zimmerman RN - 02/10/2019 2:38 [...] included. Orthopaedic Surgery H&P Attending: Dr Hussain Vidalpradeep Eugene is a 53 y.o. female who presents to see us in consultation today at the request Marcos Gutierrez MD. Chief Complaint: Left knee pain History of Present Illness: Sissy Eugene is a 53 y.o. female transferred from [facility] who is s/p Left TKA by Dr Barreto at the [facility] in 09/07/2017. She reports that she did not do well with respect to stiffness and patellar pain and so Dr Barreto performed an arthroscopic debridement of fibrotic material/adhesions around the patella on 01/18/19. 5 days post op, she began noticing a fluctuant bump over the healed medial portal site. She returned to the [facility] on02/09/19 for a post-op visit, and Dr Barreto aspirated approximately 20 cc sanguinous appearing fluid from the knee, which he reports that he discarded without sending for analysis because it lookedlike blood. She left clinic and continued to ambulate as normal until 2099, until she developed the acute onset of excruciating pain. She presented to the [facility] ED afterwards. WBC of 13.4, but was reportedly afebrile, rr 18, hr 70, bp 123/77, ESR 6 (NL < 30), CRP 8 (NL < 10). Repeat aspirate of the knee with: 4500 WBC, 94% PMN, negative gram stain. ?? Transferred to [facility] for appropriate care. ?? Only complaint at [...] EACH performed by Stanley Koo MD at [facility] ??? PRO XFER SINGLE SUPERFICI LOW LEG TENDON Left 10/01/2015 TENDON TRANSFER, ANKLE, SUPERFICIAL performed by Stanley Koo MD at [facility] Allergies Allergen Reactions ??? Adhesive Bandage Rash ??? Codeine Nausea Only No current facility-administered medications on file prior to encounter. Current Outpatient Medications on File Prior to Encounter Medication Sig Dispense Refill ??? lisinopril (PRINIVIL;ZESTRIL) 30 mg Tablet Take 30 mg by mouth daily. 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 Please page Orthopaedic consults ([phone]) with any questions or concerns. ?? Ricky [...] cell count and differential. Repeat markers at [facility] were elevated with CRP of 18 and [...] to the planned procedure. Hand Hygiene: The medical front desk coordinator did perform hand hygiene prior to line insertion. Catheter type: PICC Lot number: [id number] Procedure Technique: Skin was prepped with chlorhexidine. [...] knee arthroscopy approximately 3 weeks ago at [facility] who presents to the Emergency Department with worsening left knee pain and swelling. Patient reports worsening pain over the past several weeks with associated swelling. She was seen at the ED at [facility] and underwent arthrocentesis which showed 45, 000 [...] Spec Type BF Knee, Left Color BF Rankin Appearance BF Cloudy WBC BF Ct 27,738 [...] surgery done roughly 3 weeks ago at [facility]. Now presenting with increased swelling and pain. [...] being transferred to the emergency department from [facility], accepted by myself and will be [...] Comment: (P) Pt lives with her in [place] in a 2 level home but she will be on the first level. OOB toward L side of high bed. 3- 4 stairs to enter w/o railing, uses crutches(therex, functional activities, home management) Prior Functional Level Comment: (P) Fully indep but limited by L knee disability. 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 BT shower, no chair Staff [...] care, occupational therapy HAILY MEJIA, PT Pager: [phone] Inpatient Physical Therapy 02/14/19 3461 Rehab Evaluation Document Type therapy note (daily note) Total Evaluation Minutes, Physical Therapy 43 General Information Treatment Number PT 3 Left Lower Extremity (Weight Bearing Status) weight-bearing as tolerated Living Environment Living Environment Comment Pt lives with her in [place] in a 2 level home but she will be on the first level. OOB toward L side of high bed. 3-4 stairs to enter w/o railing, uses crutches (therex, functional activities, home management) Functional Level Prior Prior Functional Level Comment Fully indep but limited by L knee disability. 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 BT shower, no chair Cognitive [...] for ad leora w/ crutches Gait Assessment/Treatment Ripley (Gait) conditional independence Assistive Device (Gait) axillary [...] all bed mobility activities Bed Mobility Goal, Ripley Level conditional independence Bed Mobility Goal, Assistive Device leg chief estimator Bed Mobility Goal, Date Goal Reviewed 02/14/19 Bed Mobility Goal, Outcome Achieved goal met Gait Training Goal Gait Training Goal, Date Established 02/11/19 Gait Training Goal, Time to Achieve 2 - 3 days (by DC to home w/ home PT) Gait Training Goal, Ripley Level conditional independence Gait Training Goal, Assist [...] Activity Type all transfers Transfer Train Goal, Ripley Level conditional independence Transfer Training Goal, Assist Device crutches, axillary;shower chair Transfer Train Goal, Date Goal Reviewed 02/14/19 Transfer Training Goal, Outcome goal met Physical Therapy Goal PT Goal, Date Established 02/11/19 PT Goal, Time to Achieve 2 - 3 days (by DC to home w/ home PT) PT Goal, Activity Type Pt will understand and perform TKA exs correctly PT Goal, Ripley Level supervision required PT Goal, Additional Goal [...] (Interventions Implemented as Appropriate) 02/13/19 1543 02/13/19 2107 Coping/Psychosocial Plan Of Care Reviewed With -- [...] ADLs]: Eyes on Surveillance [continuous indirect monitoring]: Rounding/jos CPG GOAL OUTCOME EVALUATION: Goal: Individualization & Mutuality 02/13/19 154 Mutuality/Individual Preferences What Anxieties, Fears or Concerns [...] techniques promoted Goal: Discharge Needs Assessment 02/13/19 154 Discharge Needs Assessment Concerns To Be Addressed [...] 02/13/19 1543 Health Knowledge, Opportunity to Enhance (Adult,NICU,,Obstetrics,Pediatric) Knowledgeable about Health Subject/Topic making progress toward outcome * Plan of Care - Edwin Zimmerman RN - 02/13/2019 2:45 AM EDT Problem: Patient Care Overview Goal: Plan of Care Review Outcome: Ongoing (Interventions Implemented as Appropriate) 02/12/19 1429 02/12/191945 Coping/Psychosocial Plan Of Care Reviewed With -- [...] Ongoing (Interventions Implemented as Appropriate) 02/10/19 1553 02/12/19 142 Mutuality/Individual Preferences What Anxieties, Fears or Concerns [...] Integrity Impairment, Risk/Actual (Adult) Intervention: Promote/Optimize Nutrition 02/11/19175202/12/19 1111 Hygiene Care Oral Care -- teeth [...] 02/12/19 142 Health Knowledge, Opportunity to Enhance (Adult,NICU,,Obstetrics,Pediatric) Knowledgeable [...] dressing And to change. Patient encouraged by ADVERTISING VICE PRESIDENT to apply ice to see to if symptoms resolve. PLAN MOVING FORWARD: PT/Ot. Abxs. Discharge planning INDIVIDUALIZED FALL PREVENTION INTERVENTIONS: Patient-specific fall risk factors per assessment: [current deficits]: medications Assistance [level of assistance required for transfers and ambulation]: Standby assist w/fww Supervision [direct monitoring required during toileting and ADLs]: Hands on Surveillance [continuous indirect monitoring]: rounding/massoloo CPG GOAL OUTCOME EVALUATION: Goal: Individualization & [...] discharge needs identified Goal: Interdisciplinary Rounds/Family Conf 02/12/191428 Interdisciplinary Rounds/Family Conf Participants patient;nursing Problem: Health Knowledge, Opportunity to Enhance (Adult,NICU,[place],Obstetrics,Pediatric) Goal: Identify Related Risk Factors and Signs and Symptoms Related risk factors and signs and symptoms are identified upon initiation of Human Response Clinical Practice Guideline (CPG) 02/12/19 142 Health Knowledge, Opportunity to Enhance Health Knowledge, Opportunity for Enhanced: Related Risk Factors fatigue Goal: Knowledgeable about Health Subject/Topic Patient will demonstrate the desired outcomes by discharge/transition of care. 02/12/19 142 Health Knowledge, Opportunity to Enhance (Adult,NICU,[place],Obstetrics,Pediatric) Knowledgeable about Health Subject/Topic making progress toward [...] Ongoing (Interventions Implemented as Appropriate) 02/11/19 1523 02/11/19175202/11/191914 Safety Interventions Isolation Precautions standard precautions maintained [...] promoted;rest periods promoted Intervention: Prevent/Manage Excess Moisture 02/11/19 0728 02/11/19 1000 02/11/19 1229 Hygiene Care Perineal Care -- -- absorbent pad changed;female external catheter changed;perianal area cleansed;perineal area cleansed Bathing/Skin Care -- bath, partial;incontinence care;dressed/undressed -- Skin Interventions Skin Protection adhesive use limited;tubing/devices free from skin contact -- -- Intervention: Prevent/Minimize Sheer/Friction Injuries 02/11/19 0728 02/11/19 1523 Skin Interventions Pressure Reduction Devices pressure-redistributing mattress [...] outcome Problem: Health Knowledge, Opportunity to Enhance (Adult,NICU,[place],Obstetrics,Pediatric) Intervention: Enhance Health Knowledge 02/11/191914 Coping Strategies Supportive Measures active listening utilized;verbalization [...] Outcome: Ongoing (Interventions Implemented as Appropriate) 02/11/19 15202/11/19 17002/11/191752 Activity Activity Type -- -- activity adjusted [...] promoted;rest periods promoted Intervention: Prevent/Manage Excess Moisture 02/11/19 0728 02/11/19 1000 02/11/19 1229 Hygiene Care Perineal Care -- -- absorbent pad changed;female external catheter changed;perianal area cleansed;perineal area cleansed Bathing/Skin Care -- bath, partial;incontinence care;dressed/undressed -- Skin Interventions Skin Protection adhesive use limited;tubing/devices free from skin contact -- -- Intervention: Prevent/Minimize Sheer/Friction Injuries 02/11/19 0728 02/11/19 1523 Skin Interventions Pressure Reduction Devices pressure-redistributing mattress [...] EDT Problem: Health Knowledge, Opportunity to Enhance (Adult,NICU,[place],Obstetrics,Pediatric) Goal: Knowledgeable about Health Subject/Topic Patient will demonstrate the desired outcomes by discharge/transition of care. Peripherally Inserted Central Catheter (PICC) Teaching Sheet Peripherally inserted central catheters (qyvf-xr-olix) (PICC) are used when you need IV [...] midline catheter? PICC lines are used for alf treatments. PICC lines may be used for [...] can be set up via the nurse Sales Center Manager to help you. What are possible complications [...] Vascular Access Device Selection, Insertion, and Management, Cellectis Access Systems 07/09. A Review of the Efficacy, Safety, Use, and Administration of Cathflo, [employer] 2006 * Plan of Care - Haily Mejia, [...] Environment Comment: Pt lives with her in [place] in a 2 level home but she will beon the first level. OOB toward L side of high bed. 3-4 stairs to enter w/o railing, uses crutches Prior Functional Level Comment: Fully indep but limited by L knee disability. 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 BT shower, no chair Staff [...] care, occupational therapy HAILY MEJIA, PT Pager: [phone] Inpatient Physical Therapy 02/11/19 1523 Rehab Evaluation Document Type evaluation Total Evaluation [...] Environment Comment Pt lives with her in [facility]. [place] in a 2 level home but she will be on the first level. OOB toward L side of high bed. 3-4 stairs to enter w/o railing, uses crutches Functional Level Prior Prior Functional Level Comment Fully indep but limited by L knee disability. 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 BT shower, no chair Cognitive [...] Indicators of Pain grimace;guarding Pain Management Interventions ncnsiv-fhz-dbczt dosing utilized;cold applied;pain management plan reviewed with [...] Mobility Assessment/Treatment Assistive Device (Bed Mobility) leg chief estimator (bed flat and elevated, out to L side) Mommam-bo-Vks Ripley (Bed Mobility) contact guard assist;verbal cues required Qvw-rg-Czhstn Ripley (Bed Mobility) not tested Safety Issues (Bed Mobility) decreased use of legs for bridging/pushing Impairments (Bed Mobility) motor control impaired;pain;ROM (range of motion) decreased;strength decreased Comment (Bed Mobility) Able to use leglifter but did provide CG of LLE comig over EOB Transfer Assessment/Treatment Ripley (Sit-Stand Transfers) verbal cues required;contact guard assist;nonverbal cues required (demo/gesture) Ripley (Stand-Sit Transfers) verbal cues required;contact guard assist;nonverbal cues required (demo/gesture) Yka-Zfynu-Dsg Assistive Device (Transfers) axillary crutches Maintain Weight Bearing Status (Transfers) able to maintain weight bearing status Safety Issues (Transfers) step length decreased Comment (Transfers) Pt able to safely transfer, cues to advance LLE prior to sittng Gait Assessment/Treatment Ripley (Gait) nonverbal cues required (demo/gesture);verbal cues required;supervision required Assistive Device (Gait) axillary crutches Distance in Feet (Gait) 80 Gait Pattern Analysis swing-through gait Deviations (Gait) elba decreased;limb motion velocity decreased;step length decreased;stride length decreased;eujvz-zn-kmngly ratio decreased;weight- shifting ability decreased Maintain Weight Bearing Status (Gait) able to maintain weight bearing status Safety Issues (Gait) step length decreased;weight-shifting ability decreased Impairments (Gait) motor control impaired;pain;ROM (range of motion) decreased;strength decreased Comment (Gait) Was able to estabish a consistent swing through pattern w/ signif limp but pain limited distance ambulated [facility] Basic Mobility [facility] Mobility Completed? Yes Turning from your back [...] 4 - None To walk in hospital rooo? 4 - None Climbing 3-5 steps with a railing?* 3 - A Little [facility] Basic Mobility Raw Score 22 Basic Mobility Standardized T-Scale Score 53.28 Basic Mobility CMS 0-100% 20.91 [facility] Basic Mobility CMS Modifier CJ Coping Verbalized Emotional State acceptance Observed Emotional State accepting;apprehensive;cooperative;calm Plan of Care Review Plan Of Care Reviewed With patient;spouse (RN, manager leadership development) Progress progress toward functional goals as expected [...] all bed mobility activities Bed Mobility Goal, Ripley Level conditional independence Bed Mobility Goal, Assistive Device leg chief estimator Gait Training Goal Gait Training Goal, Date Established 02/11/19 Gait Training Goal, Time to Achieve 2 - 3 days (by DC to home w/ home PT) Gait Training Goal, Ripley Level conditional independence Gait Training Goal, Assist [...] Activity Type all transfers Transfer Train Goal, Ripley Level conditional independence Transfer Training Goal, Assist Device crutches, axillary;shower chair Physical Therapy Goal PT Goal, Date Established 02/11/19 PT Goal, Time to Achieve 2 - 3 days (by DC to home w/ home PT) PT Goal, Activity Type Pt will understand and perform TKA exs correctly PT Goal, Ripley Level supervision required PT Goal, Additional Goal [...] Pertinent/Service Specific Information: Health/Prescription Coverage: Primary Insurance: [employer] [facility] Secondary Insurance: N/A Prescription Coverage: yes Preferred Pharmacy: per demographic Other: Primary Care Provider: Sari Hay MD [phone] Patient/Caregiver Goals of Treatment: Return home to family care with IV abx at home or go daily toinfusion suite if abx to be given there. OPAT not complete Potential Needs for Transition of Care: Rehab/SNF: Home Health: The patient/lifeline representatives has been provided a list of Home Health Agencies/DME vendors which servetheir preferred geographic area. A letter describing our affiliations was reviewed with them and they were educated about their right to choose where referrals are placed. [facility] [employer]. PHONE: [phone] FAX: [phone] Patient requests referral to [place], [place] or Expected date of discharge: 02/14/19 Referral routed to the Metrology Engineer for matching with agency/vendor and to provide [...] of care planning. Caprice Hale RN Pager: [phone] * Plan of Care - Mita Suarez [...] ADLs]: Hands/eyes on Surveillance [continuous indirect monitoring]: Masimo, purposeful rounding Patient-specific fall prevention interventions for [...] of left TKA on 09/07/17 transferred from [facility] for concern for PJI. Following her initial [...] negative gram stain. She was transferred to [facility] and repeat aspirate with 27,738 wbc 94%pmns [...] EACH performed by Stanley Koo MD at [facility] ??? PRO XFER SINGLE SUPERFICI LOW LEG TENDON Left 10/01/2015 TENDON TRANSFER, ANKLE, SUPERFICIAL performed by Stanley Koo MD at [facility] Family History: Family History Problem Relation Age of Onset ??? Hypertension Father Social History and Habits: , lives with . 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 Non-smoker, no alcohol use Physical Exam: Last [...] Naina King DO Infectious Disease Fellow Pager [phone] Associated attestation - Alexy Lerner MD - [...] be switched to IV vancomycin. Should this turning lathe tender to be a Staphylococcus aureus PJI managed by single-stage revision (polyswap),then Ms. Eugene will need treatment with at least 2 weeks of parenteral therapy prior to transitioning to an oral rifampin-based regimen (e.g. Ciprofloxacin/rifampin). This will need to continue out to 6 months. Alexy Lerner MD * Op Note - Rod Valdez MD - 02/10/2019 1:26 PM EDT [facility] Operative Note Patient Name: Sissy Eugene : [id number] MR#: [id number] Case Date: 02/10/2019 Surgeon: Surgeon(s) and Role: [...] cell count and differential. Repeat markers at [facility] were elevated with CRP of 18 and [...] Operative Note Patient Name: Sissy Eugene : [id number] MR#: [id number] Case Date: 02/10/2019 Surgeon: Surgeon(s) and Role: [...] AM EDT Pt arrives by ambulance from [facility]. Pt has been having L knee pain [...] 02/10/2019 8:32 AM EDT TYPE AND SCREEN ([facility]AILESH) STAT 02/10/2019 8:32 AM EDT TOTAL KNEE [...] 3:23 AM EDT) Neutrophils % 50.9 % [facility] Neutr Abs (ANC) 3.41 1.70 - 6.10 x10(3)/[facility] Lymphocytes % 31.1 % [facility] Lymphocytes Abs 2.1 0.9 - 3.2 x10(3)/[facility] Monocytes % 10.8 % [facility] Monocyte Abs 0.7 0.3 - 0.9 x10(3)/[facility] Eosinophils % 6.0 % [facility] Eosinophils Abs 0.4 0.0 - 0.4 x10(3)/[facility] Basophils % 0.9 % [facility] Basophils Abs 0.1 0.0 - 0.1 x10(3)/[facility] Immature Gran % 0.30 % [facility] Comment: Immature granulocytes(IG's)percentage and absolute count will include metamyelocytes, myelocytes, and promyelocytes. Blood smears from CBCs yielding IG's will be scanned manually for concordance. If this scan disagrees with the automated IG or if promyelocytes are noted, a manual differential will be performed. Lorrie Gran Abs 0.02 0.00 - 0.04 x10(3)/[facility] Blood specimen (specimen) 02/13/2019 3:23 AM EDT 02/13/2019 3:29 AM EDT Narrative Resulting Agency Comment Spec In Lab Pia Bennett MD HEMATOLOGY ORDERABL ES Performing Organization Address City/State/[facility] Co de Phone Number [facility] [place] [address] * (ABNORMAL) Hemogram (02/13/2019 3:23 AM EDT) WBC 6.7 4.0 - 9.5 x10(3)/[facility] RBC 3.82(L) 4.00 - 5.21 x10(6)/[facility] Hemoglobin 10.9(L) 11.7 - 15.5 gm/dL [facility] Hematocrit 33.8(L) 35.7 - 45.8 % [facility] MCV 88.5 82.6 - 94.4 fL [facility] MCH 28.5 27.1 - 32.0 pg [facility] MCHC 32.2 31.7 - 35.0 gm/dL [facility] Platelets 241 145 - 357 x10(3)/[facility] RDWSD 44.1 37.0 - 46.0 fL [facility] RDWCV 13.5 11.5 - 14.1 % [facility] MPV 9.5 7.6 - 12.9 fL [facility] nRBC % Auto 0.0 % [facility] nRBC Abs Auto 0.000 0.000 - 0.000 x10(3)/mcL [facility] Blood specimen (specimen) 02/13/2019 3:23 AM EDT 02/13/2019 3:29 AM EDT Narrative Resulting Agency Comment Spec In Lab Pia Bennett MD HEMATOLOGY ORDERABL ES [facility] [place] [address] * (ABNORMAL) Basic Metabolic Panel (non-fasting) (02/13/2019 3:23 AM EDT) Glucose Lvl 109 65 - 199 mg/dL [facility] Comment:Diabetes: >=200 mg/d L plus symptoms BUN 6(L) 8 - 18 mg/dL [facility] Creatinine 0.77 0.70 - 1.20 mg/dL [facility] Sodium 143 135 - 145 mmol/L [facility] Potassium 3.5 3.5 - 5.0 mmol/L [facility] Comment: Please note: ??Patients with WBC >100,000 may have falsely elevated Potassium levels. ??For accurate Potassium quantification in these patients send serum separator tube (gold top) for subsequent determinations. ??Contact the Clinical Chemistry Laboratory if there are any questions. Chloride 106 98 - 107 mmol/L [facility] CO2 28 22 - 31 mmol/L [facility] Anion Gap 9 5 - 15 mmol/L [facility] Calcium 8.7 8.5 - 10.5 mg/dL [facility] Estimated GFR 87 >=60 mL/min/1. 73 m?? [facility] Comment: The eGFR was calculated using the CKD-EPI equation. As with all creatinine based estimates of kidney function, eGFR values calculated with the CKD-EPI equation are not accurate in patients with acute kidney failure, extremes of body mass or the acutely ill. http://[employer]/DHMCnkf eGFR 101 >=60 mL/min/1. 73 m?? [facility] Comment: The eGFR was calculated using the CKD-EPI equation. As with all creatinine based estimates of kidney function, eGFR values calculated with the CKD-EPI equation are not accurate in patients with acute kidney failure, extremes of body mass or the acutely ill. [email or web address] Blood specimen (specimen) 02/13/2019 3:23 AM EDT 02/13/2019 3:28 AM EDT Narrative Resulting Agency Comment Spec In Lab Karen Nixon MD CHEMISTRY ORDERABLE S [facility] [place] [address] * (ABNORMAL) Differential, Automated (02/12/2019 4:08 AM EDT) Neutrophils % 59.3 % [facility] Neutr Abs (ANC) 5.76 1.70 - 6.10 x10(3)/mc L [facility] Lymphocytes % 24.5 % [facility] Lymphocytes Abs 2.4 0.9 - 3.2 x10(3)/mc L [facility] Monocytes % 11.7 % [facility] Monocyte Abs 1.1(H) 0.3 - 0.9 x10(3)/mc L [facility] Eosinophils % 3.5 % [facility] Eosinophils Abs 0.3 0.0 - 0.4 x10(3)/mc L [facility] Basophils % 0.6 % [facility] Basophils Abs 0.1 0.0 - 0.1 x10(3)/mc L [facility] Immature Gran % 0.40 % [facility] Comment: Immature granulocytes(IG's)percentage and absolute count will include metamyelocytes, myelocytes, and promyelocytes. Blood smears from CBCs yielding IG's will be scanned manually for concordance. If this scan disagrees with the automated IG or if promyelocytes are noted, a manual differential will be performed. Lorrie Gran Abs 0.04 0.00 - 0.04 x10(3)/mc L [facility] Blood specimen (specimen) 02/12/2019 4:08 AM EDT 02/12/2019 4:15 AM EDT Narrative Resulting Agency Comment Spec In Lab Pia Bennett MD HEMATOLOGY ORDERABL ES [facility] [place] [address] * (ABNORMAL) Hemogram (02/12/2019 4:08 AM EDT) WBC 9.7(H) 4.0 - 9.5 x10(3)/[facility] RBC 3.99(L) 4.00 - 5.21 x10(6)/[facility] Hemoglobin 11.7 11.7 - 15.5 gm/dL [facility] Hematocrit 36.0 35.7 - 45.8 % [facility] MCV 90.2 82.6 - 94.4 fL [facility] MCH 29.3 27.1 - 32.0 pg [facility] MCHC 32.5 31.7 - 35.0 gm/dL [facility] Platelets 233 145 - 357 x10(3)/[facility] RDWSD 45.0 37.0 - 46.0 [facility] RDWCV 13.5 11.5 - 14.1 % [facility] MPV 9.6 7.6 - 12.9 fL [facility] nRBC % Auto 0.0 % [facility] nRBC Abs Auto 0.000 0.000 - 0.000 x10(3)/[facility] Blood specimen (specimen) 02/12/2019 4:08 AM EDT 02/12/2019 4:15 AM EDT Narrative Resulting Agency Comment Spec In Lab Pia Bennett MD HEMATOLOGY ORDERABL ES [facility] [place] [address] * Basic Metabolic Panel (non-fasting) (02/12/2019 4:08 AM EDT) Glucose Lvl 102 65 - 199 mg/dL [facility] Comment:Diabetes: >=200 mg/d L plus symptoms BUN 9 8 - 18 mg/dL [facility] Creatinine 0.84 0.70 - 1.20 mg/dL [facility] Sodium 141 135 - 145 mmol/L [facility] Potassium 3.8 3.5 - 5.0 mmol/L [facility] Comment: Please note: ??Patients with WBC >100,000 may have falsely elevated Potassium levels. ??For accurate Potassium quantification in these patients send serum separator tube (gold top) for subsequent determinations. ??Contact the Clinical Chemistry Laboratory if there are any questions. Chloride 105 98 - 107 mmol/L [facility] CO2 26 22 - 31 mmol/L [facility] Anion Gap 10 5 - 15 mmol/L [facility] Calcium 8.9 8.5 - 10.5 mg/dL [facility] Estimated GFR 78 >=60 mL/min/1. 73 m?? [facility] Comment: The eGFR was calculated using the CKD-EPI equation. As with all creatinine based estimates of kidney function, eGFR values calculated with the CKD-EPI equation are not accurate in patients with acute kidney failure, extremes of body mass or the acutely ill. http://Ischemix/DHMCnkf eGFR 91 >=60 mL/min/1. 73 m?? [facility] Comment: The eGFR was calculated using the CKD-EPI equation. As with all creatinine based estimates of kidney function, eGFR values calculated with the CKD-EPI equation are not accurate in patients with acute kidney failure, extremes of body mass or the acutely ill. [email or web address] Blood specimen (specimen) 02/12/2019 4:08 AM EDT 02/12/2019 4:15 AM EDT Narrative Resulting Agency Comment Spec In Lab Karen Nixon MD CHEMISTRY ORDERABLE S [facility] [place] [address] * XR PICC Placement Over 5 Years [...] please contact the number below. ? Narrative 02/11/2019 4:51 PM EDT EXAMINATION: XR [...] None IMPRESSION FINDINGS/IMPRESSION: Intraprocedural frontal radiograph of yvonne demonstrates a right-sided PICC line with its tip projecting over thelower superior vena cava. I have personally reviewed the image(s) and the residents interpretationand agree with the findings, Cristina Gibson at 02/11/2019 4:51 PM Thank you for letting us participate in the care of this patient. Forquestions regarding this report, please contact the number below. Luz Jose Roberto Gillette APRN IMG FLUORO ORDERABL ES * Place PICC Line: Contact Vascular Access Page [phone] Extremity to exclude: No restrictions; Is PICC [...] to the planned procedure. Hand Hygiene: The medical front desk coordinator did perform hand hygiene prior to line insertion. Catheter type: PICC Lot number: [id number] Procedure Technique: Skin was prepped with chlorhexidine. [...] Hemoglobin A1C 5.4 4.3 - 5.6 % [facility] Comment: Reference Range: 4.3 - [...] Mellitus, Diabetes Care 2013; 36: Suppl. 1, B47-07 Est Avg Gluc 109 mg/dL [facility] Comment: eAG equivalents for HbA1c percentages: [...] into estimated average glucose values. ??Diabetes Care 2008:31(8):6444-5074. Blood specimen (specimen) Venous Draw / Unknown 02/11/2019 3:07 AM EDT 02/11/2019 10:45 AM EDT Narrative Resulting Agency Comment Spec In Lab Maria Luisa ANDERSEN CHEMISTRY ORDERAB LES [facility] [place] [address] * (ABNORMAL) Differential, Automated (02/11/2019 3:07 AM EDT) Neutrophils % 70.2 % [facility] Neutr Abs (ANC) 6.36(H) 1.70 - 6.10 x10(3)/mc L [facility] Lymphocytes % 15.3 % [facility] Lymphocytes Abs 1.4 0.9 - 3.2 x10(3)/mc L [facility] Monocytes % 12.9 % [facility] Monocyte Abs 1.2(H) 0.3 - 0.9 x10(3)/mc L [facility] Eosinophils % 1.0 % [facility] Eosinophils Abs 0.1 0.0 - 0.4 x10(3)/mc L [facility] Basophils % 0.3 % [facility] Basophils Abs 0.0 0.0 - 0.1 x10(3)/mc L [facility] Immature Gran % 0.30 % [facility] Comment: Immature granulocytes(IG's)percentage and absolute count will include metamyelocytes, myelocytes, and promyelocytes. Blood smears from CBCs yielding IG's will be scanned manually for concordance. If this scan disagrees with the automated IG or if promyelocytes are noted, a manual differential will be performed. Lorrie Gran Abs 0.03 0.00 - 0.04 x10(3)/ L [facility] Blood specimen (specimen) 02/11/2019 3:07 AM EDT 02/11/2019 3:26 AM EDT Narrative Resulting Agency Comment Spec In Lab Pia Bennett MD HEMATOLOGY ORDERABL ES [facility] [place] [address] * Hemogram (02/11/2019 3:07 AM EDT) WBC 9.1 4.0 - 9.5 x10(3)/[facility] RBC 4.23 4.00 - 5.21 x10(6)/[facility] Hemoglobin 12.2 11.7 - 15.5 gm/dL [facility] Hematocrit 38.1 35.7 - 45.8 % [facility] MCV 90.1 82.6 - 94.4 fL [facility] MCH 28.8 27.1 - 32.0 pg [facility] MCHC 32.0 31.7 - 35.0 gm/dL [facility] Platelets 229 145 - 357 x10(3)/[facility] RDWSD 44.2 37.0 - 46.0 fL [facility] RDWCV 13.5 11.5 - 14.1 % [facility] MPV 9.8 7.6 - 12.9 fL [facility] nRBC % Auto 0.0 % [facility] nRBC Abs Auto 0.000 0.000 - 0.000 x10(3)/mcL [facility] Blood specimen (specimen) 02/11/2019 3:07 AM EDT 02/11/2019 3:26 AM EDT Narrative Resulting Agency Comment Spec In Lab Pia Bennett MD HEMATOLOGY ORDERABL ES [facility] [place] [address] * Basic Metabolic Panel (non-fasting) (02/11/2019 3:07 AM EDT) Glucose Lvl 121 65 - 199 mg/dL [facility] Comment:Diabetes: >=200 mg/d L plus symptoms BUN 13 8 - 18 mg/dL [facility] Creatinine 0.80 0.70 - 1.20 mg/dL [facility] Sodium 140 135 - 145 mmol/L [facility] Potassium 3.9 3.5 - 5.0 mmol/L [facility] Comment: Please note: ??Patients with WBC >100,000 may have falsely elevated Potassium levels. ??For accurate Potassium quantification in these patients send serum separator tube (gold top) for subsequent determinations. ??Contact the Clinical Chemistry Laboratory if there are any questions. Chloride 104 98 - 107 mmol/L [facility] CO2 25 22 - 31 mmol/L [facility] Anion Gap 11 5 - 15 mmol/L [facility] Calcium 8.8 8.5 - 10.5 mg/dL [facility] Estimated GFR 83 >=60 mL/min/1. 73 m?? [facility] Comment: The eGFR was calculated using the CKD-EPI equation. As with all creatinine based estimates of kidney function, eGFR values calculated with the CKD-EPI equation are not accurate in patients with acute kidney failure, extremes of body mass or the acutely ill. http://[email or web address] eGFR 96 >=60 mL/min/1. 73 m?? [facility] Comment: The eGFR was calculated using the CKD-EPI equation. As with all creatinine based estimates of kidney function, eGFR values calculated with the CKD-EPI equation are not accurate in patients with acute kidney failure, extremes of body mass or the acutely ill. [email or web address] Blood specimen (specimen) 02/11/2019 3:07 AM EDT 02/11/2019 3:26 AM EDT Narrative Resulting Agency Comment Spec In Lab Karen Nixon MD CHEMISTRY ORDERABLE S Performing Organization Address [facility] Co de Phone Number [facility] [place] [address] * (ABNORMAL) Sonicated Tissue/Implant Culture Prosthetic Joint (02/10/2019 2:32 PM EDT) Sonicated Tissue/Implan t Culture Greater than 100 cfu/10 ml sonicate Staphylococcus lugdunensis Susceptibilities previously reported (A) [facility] Organism Staphylococcus lugdunensis(A) [facility] Prosthetic joint sample (specimen) 02/10/2019 2:32 PM EDT 02/10/2019 2:42 PM EDT Comment:LEFT PROSTHETIC KNEE JOINT Narrative Resulting Agency Comment Spec In Lab Karen Nixon MD MICROBIOLOGY - GENE RAL ORDERABLES Performing Organization Address [facility] Co de Phone Number [facility] [place] [address] * Anaerobic Culture (02/10/2019 12:53 PM EDT) Anaerobic Culture No anaerobic organisms isolated [facility] Joint fluid specimen (specimen) STRUCTURE OF LEFT KNEE REGION / Unknown 02/10/2019 12:53 PM EDT 02/10/2019 2:04 PM EDT Comment:LEFT POSTERIOR SYNOV IUM Narrative Resulting Agency Comment Spec In Lab Rod Valdez MD MICROBIOLOGY - GENER AL ORDERABLES Performing Organization Address City/[facility] Co de Phone Number [facility] [place] [address] * (ABNORMAL) Joint Culture (02/10/2019 12:53 PM EDT) Joint Culture Few Staphylococcus lugdunensis Susceptibilities previously reported (A) [facility] Gram Stain Cytocentrifuge Gram Stain performed Neutrophils seen No microorganisms seen. (A) [facility] Organism Staphylococcus lugdunensis(A) [facility] Joint fluid specimen (specimen) STRUCTURE OF LEFT KNEE REGION / Unknown 02/10/2019 12:53 PM EDT 02/10/2019 2:04 PM EDT Comment:LEFT POSTERIOR SYNOV IUM Narrative Resulting Agency Comment Spec In Lab Rod Valdez MD MICROBIOLOGY - GENER AL ORDERABLES Performing Organization Address [facility] Co de Phone Number [facility] [place] [address] * Anaerobic Culture (02/10/2019 12:53 PM EDT) Anaerobic Culture No anaerobic organisms isolated [facility] Joint fluid specimen (specimen) STRUCTURE OF LEFT KNEE REGION / Unknown 02/10/2019 12:53 PM EDT 02/10/2019 2:05 PM EDT Comment:LEFT TIBIAL TRAY Narrative Resulting Agency Comment Spec In Lab Rod Valdez MD MICROBIOLOGY - GENER AL ORDERABLES Performing Organization Address City/[facility]/ZIP Co de Phone Number [facility] [place] [address] * (ABNORMAL) Joint Culture (02/10/2019 12:53 PM EDT) Joint Culture Moderate Staphylococcus lugdunensis(A) [facility] Gram Stain Cytocentrifuge Gram Stain performed Neutrophils seen Moderate Gram Positive Cocci in clusters seen Results called to and read back by Kenneth De Leon ??02/10/19 15:08:50 (A) [facility] Organism Staphylococcus lugdunensis(A) [facility] Organism Gram Positive Cocci in clusters(A) [facility] Joint fluid specimen (specimen) STRUCTURE OF LEFT KNEE REGION / Unknown 02/10/2019 12:53 PM EDT 02/10/2019 2:05 PM EDT Comment:LEFT TIBIAL TRAY Narrative Resulting Agency Comment Spec In Lab Organism Antibiotic Method Susceptibility Staphylococcus lugdunensis Clindamycin RICHEY-CHE SUSCEPTIBILITY METHOD Sensitive Staphylococcus lugdunensis Erythromycin RICHEY-CHE SUSCEPTIBILITY METHOD Sensitive Staphylococcus lugdunensis Gentamicin RICHEY-CHE SUSCEPTIBILITY METHOD Sensitive Comment:Gentamicin i s not appropriate for Hyde-therapy. Staphylococcus lugdunensis Oxacillin RICHEY-CHE SUSCEPTIBILITY METHOD Sensitive Staphylococcus lugdunensis Tetracycline RICHEY-CHE SUSCEPTIBILITY METHOD Sensitive Staphylococcus lugdunensis Trimethoprim/Sulfa RICHEY-CHE SUSCEPTIBILITY METHOD Resistant Staphylococcus lugdunensis Linezolid RICHEY-CHE SUSCEPTIBILITY METHOD Sensitive Staphylococcus lugdunensis Levofloxacin RICHEY-CHE SUSCEPTIBILITY METHOD Sensitive Staphylococcus lugdunensis Ceftriaxone MINIMUM INHIBITORY CONCENTRATION 1 Rod Valdez MD MICROBIOLOGY - GENER AL ORDERABLES Performing Organization Address City/[facility]/ZIP Co de Phone Number [facility] [place] [address] * Anaerobic Culture (02/10/2019 12:53 PM EDT) Anaerobic Culture No anaerobic organisms isolated [facility] Joint fluid specimen (specimen) STRUCTURE OF LEFT KNEE REGION / Unknown 02/10/2019 12:53 PM EDT 02/10/2019 2:05 PM EDT Comment:LEFT KNEE FLUID Narrative Resulting Agency Comment Spec In Lab Rod Valdez MD MICROBIOLOGY - GENER AL ORDERABLES Performing Organization Address City/[facility]/ZIP Co de Phone Number [facility] [place] [address] * (ABNORMAL) Joint Culture (02/10/2019 12:53 PM EDT) Joint Culture Rare Staphylococcus lugdunensis Susceptibilities previously reported (A) [facility] Gram Stain Cytocentrifuge Gram Stain performed Neutrophils seen No microorganisms seen. (A) [facility] Organism Staphylococcus lugdunensis(A) [facility] Joint fluid specimen (specimen) STRUCTURE OF LEFT KNEE REGION / Unknown 02/10/2019 12:53 PM EDT 02/10/2019 2:05 PM EDT Comment:LEFT KNEE FLUID Narrative Resulting Agency Comment Spec In Lab Rod Valdez MD MICROBIOLOGY - GENER AL ORDERABLES [facility] [place] [address] * Cell Count Body Fluid Knee Joint Fluid (02/10/2019 12:13 PM EDT) Spec Type BF Knee Fl [facility] Color BF Red [facility] Appearance BF Cloudy [facility] WBC BF Ct 38,759 /[employer] [...] to patients chart. Polymorph % 95 % [facility] Comment: Polymorphonuclear cell percent and absolute values may contain Neutrophils, Eosinophils, and Basophils. Body fluid smear will be scanned manually for concordance. Mononuc % 5 % [facility] Comment: Mononuclear cell percent and absolute values may contain Lymphocytes and Monocytes. Body fluid smear will be scanned manually for concordance. Polymorph BF ABS 36,756 /[facility] Comment: Polymorphonuclear cell percent and absolute values may contain Neutrophils, Eosinophils, and Basophils. Body fluid smear will be scanned manually for concordance. Mononuc ABS 2,003 /[facility] Comment: Mononuclear cell percent and absolute values may contain Lymphocytes and Monocytes. Body fluid smear will be scanned manually for concordance. Knee joint synovial fluid (specimen) 02/10/2019 12:13 PM EDT 02/10/2019 12:19 PM EDT Narrative Resulting Agency Comment Spec In Lab Karen Nixon MD BODY FLUIDS AND STO OLS ORDERABLES Performing Organization Address [facility]/ZIP Co de Phone Number [facility] [place] [address] * Blood culture (02/10/2019 9:20 AM EDT) Blood Culture No growth at 5 days. [facility] Blood specimen (specimen) 02/10/2019 9:20 AM EDT 02/10/2019 10:08 AM EDT Narrative Resulting Agency Comment Spec In Lab Reza Gutierrez MD MICROBIOLOGY - BLOOD ORDERABLES Performing Organization Address [facility]/ZIP Co de Phone Number [facility] [place] [address] * ABORH Recheck Status (02/10/2019 8:32 AM EDT) ABORH Recheck Order Order Placed [facility] ABORH Type Recheck Complete [facility] Blood specimen (specimen) 02/10/2019 8:32 AM EDT 02/10/2019 9:02 AM EDT Narrative Resulting Agency Comment Spec In Lab Alison Bueno MD BLOOD BANK LAB ORDER DEVAN Performing Organization Address City/[facility]/ZIP Co de Phone Number [facility] [place] [address] * Antibody screen (02/10/2019 8:32 AM EDT) Ab Screen Interp Negative [facility] Expires at [id number] on: 02/13/2019 [facility] Blood specimen (specimen) 02/10/2019 8:32 AM EDT 02/10/2019 9:02 AM EDT Narrative Resulting Agency Comment Spec In Lab Alison Bueno MD BLOOD BANK LAB ORDER DEVAN Performing Organization Address City/[facility]/ZIP Co de Phone Number [facility] [place] [address] * ABO/Rh Typing (02/10/2019 8:32 AM EDT) ABORH Type A Pos [facility] Blood specimen (specimen) 02/10/2019 8:32 AM EDT 02/10/2019 9:02 AM EDT Narrative Resulting Agency Comment Spec In Lab Alison Bueno MD BLOOD BANK LAB ORDER DEVAN Performing Organization Address [facility]/ZIP Co de Phone Number [facility] [place] [address] * Blood culture (02/10/2019 8:32 AM EDT) Blood Culture No growth at 5 days. [facility] Blood specimen (specimen) ANTECUBITAL REGION STRUCTURE / Unknown 02/10/2019 8:32 AM EDT 02/10/2019 9:06 AM EDT Narrative Resulting Agency Comment Spec In Lab Reza Gutierrez MD MICROBIOLOGY - BLOOD ORDERABLES Performing Organization Address City/[facility]/ZIP Co de Phone Number [facility] [place] [address] * Anaerobic Culture (02/10/2019 5:58 AM EDT) Anaerobic Culture No anaerobic organisms isolated [facility] Joint fluid specimen (specimen) STRUCTURE OF LEFT KNEE REGION / Unknown 02/10/2019 5:58 AM EDT 02/10/2019 7:38 AM EDT Narrative Resulting Agency Comment Spec In Lab Ricky Lozoya MD MICROBIOLOGY - GENER AL ORDERABLES Performing Organization Address City/[facility]/ZIP Co de Phone Number [facility] [place] [address] * (ABNORMAL) Joint Culture (02/10/2019 5:58 AM EDT) Joint Culture Rare Staphylococcus lugdunensis Susceptibilities previously reported (A) [facility] Gram Stain Cytocentrifuge Gram Stain performed Many Neutrophils seen No microorganisms seen. (A) [facility] Organism Staphylococcus lugdunensis(A) [facility] Joint fluid specimen (specimen) STRUCTURE OF LEFT KNEE REGION / Unknown 02/10/2019 5:58 AM EDT 02/10/2019 6:12 AM EDT Narrative Resulting Agency Comment Spec In Lab Ricky Lozoya MD MICROBIOLOGY - GENER AL ORDERABLES [facility] [place] [address] * Crystal Exam Body Fluid Knee, Left (02/10/2019 5:58 AM EDT) Crystal BF Type Knee fluid Lt [facility] Crystal BF None Seen [facility] Specimen from lower limb (specimen) 02/10/2019 5:58 AM EDT 02/10/2019 6:09 AM EDT Narrative Resulting Agency Comment Spec In Lab Reza Gutierrez MD BODY FLUIDS AND STOO LS ORDERABLES Performing Organization Address City/[facility]/ZIP Co de Phone Number [facility] [place] [address] * Cell Count Body Fluid Knee, Left (02/10/2019 5:58 AM EDT) Spec Type BF Knee, Left [facility] Color BF Rankin [facility] Appearance BF Cloudy [facility] WBC BF Ct 27,738 /mcl [facility] Comment: Guideline listed below apply to all body fluids. Differentials on BAL specimens are performed by the Cytology lab section. When Body Fluid WBC count is greater than Zero, a smear is made and scanned. All scan information is correlated with numeric results prior to being released to patients chart. Polymorph % 94 % [facility] Comment: Polymorphonuclear cell percent and absolute values may contain Neutrophils, Eosinophils, and Basophils. Body fluid smear will be scanned manually for concordance. Mononuc % 6 % [facility] Comment: Mononuclear cell percent and absolute values may contain Lymphocytes and Monocytes. Body fluid smear will be scanned manually for concordance. Polymorph BF ABS 25,939 /[facility] Comment: Polymorphonuclear cell percent and absolute values may contain Neutrophils, Eosinophils, and Basophils. Body fluid smear will be scanned manually for concordance. Mononuc ABS 1,799 /[facility] Comment: Mononuclear cell percent and absolute values may contain Lymphocytes and Monocytes. Body fluid smear will be scanned manually for concordance. Specimen from lower limb (specimen) 02/10/2019 5:58 AM EDT 02/10/2019 6:09 AM EDT Narrative Resulting Agency Comment Spec In Lab Reza Gutierrez MD BODY FLUIDS AND STOO LS ORDERABLES Performing Organization Address City/[facility]/ZIP Co de Phone Number [facility] [place] [address] * Gold Tube HOLD (02/10/2019 5:40 AM EDT) Gold Hold Sample in lab. [facility] Blood specimen (specimen) Venous Draw / Unknown 02/10/2019 5:40 AM EDT 02/10/2019 5:45 AM EDT Ricky Lozoya MD CHEMISTRY ORDERABLES Performing Organization Address City/[facility]/ZIP Co de Phone Number [facility] [place] [address] * (ABNORMAL) Differential, Automated (02/10/2019 5:40 AM EDT) Neutrophils % 81.1 % [facility] Neutr Abs (ANC) 10.29(H) 1.70 - 6.10 x10(3)/mc L [facility] Lymphocytes % 9.5 % [facility] Lymphocytes Abs 1.2 0.9 - 3.2 x10(3)/mc L [facility] Monocytes % 8.7 % [facility] Monocyte Abs 1.1(H) 0.3 - 0.9 x10(3)/[facility] Eosinophils % 0.0 % [facility] Eosinophils Abs 0.0 0.0 - 0.4 x10(3)/[facility] Basophils % 0.4 % [facility] Basophils Abs 0.0 0.0 - 0.1 x10(3)/[facility] Immature Gran % 0.30 % [facility] Comment: Immature granulocytes(IG's)percentage and absolute count will include metamyelocytes, myelocytes, and promyelocytes. Blood smears from CBCs yielding IG's will be scanned manually for concordance. If this scan disagrees with the automated IG or if promyelocytes are noted, a manual differential will be performed. Lorrie Gran Abs 0.04 0.00 - 0.04 x10(3)/[facility] Blood specimen (specimen) 02/10/2019 5:40 AM EDT 02/10/2019 5:45 AM EDT Narrative Resulting Agency Comment Spec In Lab Ricky Lozoya MD HEMATOLOGY ORDERABLE S [facility] [place] [address] * (ABNORMAL) Hemogram (02/10/2019 5:40 AM EDT) WBC 12.7(H) 4.0 - 9.5 x10(3)/[facility] RBC 4.62 4.00 - 5.21 x10(6)/[facility] Hemoglobin 13.3 11.7 - 15.5 gm/dL [facility] Hematocrit 40.0 35.7 - 45.8 % [facility] MCV 86.6 82.6 - 94.4 fL [facility] MCH 28.8 27.1 - 32.0 pg [facility] MCHC 33.3 31.7 - 35.0 gm/dL [facility] Platelets 268 145 - 357 x10(3)/[facility] RDWSD 41.4 37.0 - 46.0 [facility] RDWCV 13.2 11.5 - 14.1 % [facility] MPV 9.6 7.6 - 12.9 [facility] nRBC % Auto 0.0 % [facility] nRBC Abs Auto 0.000 0.000 - 0.000 x10(3)/[facility] Blood specimen (specimen) 02/10/2019 5:40 AM EDT 02/10/2019 5:45 AM EDT Narrative Resulting Agency Comment Spec In Lab Ricky Lozoya MD HEMATOLOGY ORDERABLE S Performing Organization Address [facility]/ZIP Co de Phone Number [facility] [place] [address] * (ABNORMAL) APTT (02/10/2019 5:40 AM EDT) PTT 24(L) 25 - 37 sec [facility] Comment: The PTT is NOT appropriate for heparin monitoring. Use the Anti-Xa level for heparin monitoring (HEP UFH) or LMWH monitoring (HEP LMW). A PTT less than 37 seconds generally indicates adequate hemostasis. Blood specimen (specimen) 02/10/2019 5:40 AM EDT 02/10/2019 5:45 AM EDT Narrative Resulting Agency Comment Spec In Lab Reza Gutierrez MD HEMATOLOGY ORDERABLE S [facility] [place] [address] * (ABNORMAL) Prothrombin Time (02/10/2019 5:40 AM EDT) PT 12.6(H) 9.4 - 12.5 sec [facility] INR 1.1 [facility] Comment: An INR <2.0 [...] Lab Reza Gutierrez MD HEMATOLOGY ORDERABLE S [facility] [place] [address] * (ABNORMAL) Basic Metabolic Panel (non-fasting) (02/10/2019 5:40 AM EDT) Glucose Lvl 162 65 - 199 mg/dL [facility] Comment:Diabetes: >=200 mg/d L plus symptoms BUN 17 8 - 18 mg/dL [facility] Creatinine 1.06 0.70 - 1.20 mg/dL [facility] Sodium 139 135 - 145 mmol/L [facility] Potassium 4.3 3.5 - 5.0 mmol/L [facility] Comment: Please note: ??Patients with WBC >100,000 may have falsely elevated Potassium levels. ??For accurate Potassium quantification in these patients send serum separator tube (gold top) for subsequent determinations. ??Contact the Clinical Chemistry Laboratory if there are any questions. Chloride 102 98 - 107 mmol/L [facility] CO2 24 22 - 31 mmol/L [facility] Anion Gap 13 5 - 15 mmol/L [facility] Calcium 9.4 8.5 - 10.5 mg/dL [facility] Estimated GFR 59(L) >=60 mL/min/1. 73 m?? [facility] Comment: The eGFR was calculated using the CKD-EPI equation. As with all creatinine based estimates of kidney function, eGFR values calculated with the CKD-EPI equation are not accurate in patients with acute kidney failure, extremes of body mass or the acutely ill. http://[employer]/DHnkf eGFR 68 >=60 mL/min/1. 73 m?? [facility] Comment: The eGFR was calculated using the CKD-EPI equation. As with all creatinine based estimates of kidney function, eGFR values calculated with the CKD-EPI equation are not accurate in patients with acute kidney failure, extremes of body mass or the acutely ill. http://[employer]/DHMCnkf Blood specimen (specimen) 02/10/2019 5:40 AM EDT 02/10/2019 5:45 AM EDT Narrative Resulting Agency Comment Spec In Lab Reza Gutierrez MD CHEMISTRY ORDERABLES Performing Organization Address [facility]/ZIP Co de Phone Number [facility] [place] [address] * Sedimentation rate (02/10/2019 5:40 AM EDT) Sed Rate 11 0 - 20 mm/hr [facility] Blood specimen (specimen) 02/10/2019 5:40 AM EDT 02/10/2019 5:45 AM EDT Narrative Resulting Agency Comment Spec In Lab Reza Gutierrez MD HEMATOLOGY ORDERABLE S Performing Organization Address City/[facility]/ZIP Co de Phone Number [facility] [place] [address] * (ABNORMAL) CRP, acute inflammation (02/10/2019 5:40 AM EDT) CRP 18.2(H) <=4.9 mg/L [facility] Blood specimen (specimen) 02/10/2019 5:40 AM EDT 02/10/2019 5:45 AM EDT Narrative Resulting Agency Comment Spec In Lab Reza Gutierrez MD CHEMISTRY ORDERABLES Performing Organization Address City/[facility]/ZIP Co de Phone Number [facility] [place] [address] * SCAN DOC: IMPLANTABLE DEVICES (02/10/2019 12:00 AM EDT) Narrative 02/10/2019 12:00 AM EDT Ordered by an unspecified provider. Scanning Provider MEDIA MGR SCAN EXT O RDR/RSLT * Film Library- Storage Only DX Knee (10/29/2017 12:00 AM EST) Narrative [facility] 02/10/2019 2:36 AM EDT This exam is auto-finalizing. It's purpose is for storage only. Karen Nixon MD IMG FILM LIBRARY OR DERABLES Performing Organization Address [facility] de Phone Number [place], [place] * Film Library- Storage Only DX Knee (09/07/2017 12:00 AM EST) Narrative [facility] 02/10/2019 2:35 AM EDT This exam is auto-finalizing. It's purpose is for storage only. Karen COBB FILM LIBRARY OR DERABLES Performing Organization Address [facility] de Phone Number [place], [place] documented in this encounter Visit Diagnoses Not on filedocumented in this encounter Admitting Diagnoses Diagnosis Infection [...] Given 02/13/2019 1:39 PM EDT 10 mg BUpivacaine-EPINEPHrine 0.25 %-1:200,000 injection ONCE PRN, Starting on Paty 02/10/19 at 1224, Until Thu02/15/19 at 1613, Intra-Operative (Intra-Procedure), Routine Given 02/10/2019 12:24 PM EDT 50 mLs 19- Surgical Site cefTRIAXone (ROCEPHIN) 2 g vial attach to sodium chloride 0.9% 50 mL Mini-Bag Plus 2 g, Intravenous, EVERY 12 HOURS, First dose (after last modification) on Thu02/15/19 at 0645, Until Discontinued, Administer over 30 Minutes, Indication for (Active or Suspected): Bone/Joint New Bag 02/15/2019 8:36 AM EDT 2 g 100 mL/hr diphenhydrAMINE (BENADRYL) capsule 25 mg 25 mg, Oral, 2 TIMES DAILY PRN, Starting on 02/14/19 at 1830, Until Thu02/15/19 at 1613, Itching, Sleep, Routine gabapentin (NEURONTIN) capsule 300 mg 300 mg, Oral, NIGHTLY, First dose on 02/12/19 at 2100, Until Discontinued, Routine Given 02/14/2019 8:52 PM EDT 300 mg Given 02/13/2019 9:07 PM EDT 300 mg Given 02/12/2019 8:26 PM EDT 300 mg ketorolac (TORADOL) injection ONCE PRN, Starting on Paty 02/10/19 at 1223, Until Thu02/15/19 at 1613, Intra-Operative (Intra-Procedure), Routine Given 02/10/2019 12:23 PM EDT 30 mg 19- Surgical Site lisinopril (PRINIVIL;ZESTRIL) tablet 30 mg 30 mg, Oral, DAILY, First dose on Thu02/11/19 at 0900, Until Discontinued, Hold for SBP <130, Routine Given 02/15/2019 8:33 AM EDT 30 mg Given 02/13/2019 8:13 AM EDT 30 mg multivitamin with minerals (THERA-M) tablet 1 tablet 1 tablet, Oral, DAILY, First dose on Thu02/10/19 at 1600, Until Discontinued, Routine Given 02/15/2019 [...] Given 02/14/2019 8:24 AM EDT 5 mLs documented in this encounter Active and Recently [...] Discontinued, Routine 0813 (Given - Provider: Rae Hakwins RN)2106 (Given - Provider: Mita Suarez RN) 822 (Given - Provider: Liliana Cisneros RN)2051 (Given [...] Bone/Joint 835 (New Bag - Provider: Liliana Cisneros RN - Comment: To administer at 0800 and 2000 per field nurse case manager for home scheduling convenience)905 (Stopped - Provider: Liliana Cisneros RN) gabapentin (NEURONTIN) capsule 300 mg(Linked Group 1) 300 mg, Oral, NIGHTLY, First dose on 02/12/19 at 2100, Until Discontinued, Routine 2106 (Given - Provider: Mita Suarez RN) 2051 (Given - Provider: Mita Suarez RN) lisinopril (PRINIVIL;ZESTRIL) tablet 30 mg 30 mg, Oral, DAILY, First dose on Thu02/11/19 at 0900, Until Discontinued, Hold for SBP <130, Routine 0813 (Given - Provider: Rae Hawkins RN) 0822 (Not Given - Provider: Liliana Cisneros RN - Reason: Order parameters not met - Comment: BP 113/76. Systolic < 130) 0833 (Given - Provider: Liliana Cisneros RN - [...] Routine 0812 (Given - Provider: Rae Hawkins RN)2100 (Not Given - Provider: Mita Suarez RN - Reason: Patient/family refused) 08 (Not Given - Provider: Liliana Cisneros RN - Reason: Patient/family refused)2100 (Not Given - Provider: Mita Suarez RN [...] Suarez RN) 08 (Given - Provider: Liliana Cisneros, ODIN)2051 (Given - Provider: Mita Suarez RN) 08 (Given - Provider: Liliana Cisneros RN) sodium chloride 0.9 % flush 5 mL 5 mL, Intravenous, 2 TIMES DAILY, First dose on Paty 02/10/19 at 2100, Until Discontinued, Recovery (Recovery-Hospital Unit), Routine 0812 (Given - Provider: Rae Hawkins RN)2108 (Given - Provider: Mita Suarez RN) 08 (Given - Provider: Liliana Cisneros RN)2056 (Given - Provider: Mita Suarez RN) 0837 (Given - Provider: Liliana Cisneros RN) PRN Medication Order 02/13/2019 02/14/2019 02/15/2019 bisacodyl (DULCOLAX) EC tablet 10 mg 10 mg, Oral, 2 TIMES DAILY PRN, Starting on Paty 02/10/19 at 1538, Until 02/15/19 at 1613, Constipation, DO NOT CRUSH OR [...] 02/10/19 at 1538, Until 02/15/19 at 1613, Constipation, Administer if needed per [...] 200 mg, Oral, DAILY PRN, Starting on 02/11/19 at 0000, Until Thu02/15/19 at 1613, Pain, [...] at 1538, Until Tu02/15/19 at 1613, Nausea, Vomiting, If multiple antiemetics [...] Zimmerman, RN)1320 (Given - Provider: Daniel Oscar, ODIN)1748 (Given - Provider: Rae Hawkins, ODIN)2224 (Given - Provider: Mita Suarez, ODIN) 1028 (Given - Provider: Ricky Foster)1749 (Given - Provider: Liliana Cisneros, ODIN)2245 (Given - Provider: Elvia Flores RN) sodium [...] on 02/12/19 at 2100, Until Discontinued, Routine Group 2: ondansetron (ZOFRAN) tablet 4 mgJump to med 4 mg, Oral, EVERY 8 HOURS PRN, Starting on Paty 02/10/19 at 1538, Until Tu02/15/19 at 1613, Nausea, Vomiting, If multiple antiemetics [...] Unit) documented in this encounter Care Teams Supervisor Estimator And Drafter Relationship Specialty Start Date End Date Sari Hay MD [facility] [address] [place] [address] PCP - General 05/21/11 documented as of this encounter
--- OUTSIDE RECORDS SUMMARY | 2024-04-26 15:51 | XMS_ITS | Encounter Summary ---
Author Organization [facility] Address [facility] [place] [address] Care Team Providers Care Matzo Forming Machine Operator Name Role Phone Sari Pacheco MD Primary Care Provider [phone] Reason for Visit * Auth/Cert - Closed [...] Expiration Date Visits Re quested Visits Authorized [id number] Closed 1 1 Encounter Details Date Type Department Care Team (Late st Contact Info) Description 10/01/2015 7:30 AM EST - 10/01/2015 8:45 AM EST Surgery [place] [phone] Stanley Koo MD [facility] [place] [address] OSTEOTOMY, METATARSAL, OTHER THAN FIRST, EACH (WRVU 5.48) Social History Tobacco Use Types Packs/Day Years [...] Sign Reading Time Taken Comments Blood Pressure 104/64 10/01/2015 8:45 AM EST Pulse 75 10/01/2015 8:45 AM EST Temperature 36.2 ??C (97.2 ??F) 10/01/2015 8:22 AM ES T Respiratory Rate 18 10/01/2015 8:45 AM EST Oxygen Saturation 95% 10/01/2015 8:45 AM EST Inhaled Oxygen Concentration - - [...] to facilitate abowel movement. If needed an ppxa-qrq-gumvlsx medication, miralax can also be used to [...] Center 10/11/2015 9:30 AM Stanley Koo MD [facility] [address] [place] [address] Contact Information: Your orthopaedic surgeon:Stanley Koo MD: Sports: [phone] If it is after 5:00PM on a weekday or a weekend and it is of an urgent nature please call [phone] and ask for the on-call orthopaedic resident. Your Primary Care Physician: SARI PACHECO MD [phone] General Anesthesia Discharge Instructions Go home and [...] closest emergency room or call the hospital bleach range operator at [phone] and ask for physician vaccines solutions specialist covering for your physician. Questions or problems after 5pm or on a weekend: Call the [facility] bleach range operator at and ask for the physician vaccines solutions specialist covering for your doctor. Lower Extremity Nerve [...] after hours and ask for the anesthesiologist vaccines solutions specialist. [facility] Learning About Deep Vein Thrombosis What [...] more? Visit our health information library at [email or web address]. You can alsoview health information on [employer], your personal patient account. Log in or sign up today. Enter X941 in the search box to learn more about Learning About Deep Vein Thrombosis. ?? [phone] [employer]. Care instructions adapted under license by [facility]. This care instruction is for use with your licensed healthcare professional. If you have questions about a medical condition or this instruction, always ask your healthcare professional. [employer] disclaims any warranty or liability for your use of this information. Content Version: 8.9.24309; Last Revised: November 20, 2009 documented in [...] encounter Miscellaneous Notes * Op Note - Fuchs, Anabell O, MD - 10/01/2015 8:22 AM EST Operative Note Patient Name: Sissy Eugene : [id number] MR#: [id number] Case Date: 10/01/2015 Surgeon: Surgeon(s) and Role: [...] then fastening it in place with two eouefp-zq-nxcxi FiberWire stitches. The phalanx was found to [...] Operative Note Patient Name: Sissy Eugene : [id number] MR#: [id number] Case Date: 10/01/2015 Surgeon: Surgeon(s) and Role: [...] Associated Diagnoses Date /Time FILM LIBRARY-FLUORO OR [id number] ONL Imaging Routine 10/01/2015 8:1 9 AM EST Scheduled Orders Name Type Priority Associated Diagnoses Orde r Schedule FILM LIBRARY-FLUORO OR [id number] ONL Imaging Routine Once PRN (f or [...] Given 10/01/2015 8:51 AM EST 1,000 mg fentaNYL (PF) 50 mcg/mL 2mL syringe 50 mcg, Intravenous, EVERY 5 MIN PRN, Pain, or prior to injection of local anesthetic., Starting on Thu10/01/15 at 0619, Until Thu10/01/15 at 0948, Hold for respiratory rate less than 8 breaths per minute. (maximum dose 200 mcg), Day of Surgery (Day of Procedure) Given 10/01/2015 6:52 AM EST 25 mcg midazolam (PF) (VERSED) 1 mg/mL injection 1 mg 1 mg, Intravenous, EVERY 5 MIN PRN, Starting on Thu10/01/15 at 0619, Until Thu10/01/15 at 0948, Sleep, or prior to injection of local anesthetic, Hold for delirium/agitation. (Maximum dose 5 mg)., Day of Surgery (Day of Procedure), Routine Given 10/01/2015 6:52 AM EST 2 mg documented in this encounter Active and [...] at 0622, Until Thu10/01/15 at 0734, MAN PALMYRA: cabinet override 0734 (Given - Provid er: Tiera Pope CRNA) documented in this encounter Care Teams Matzo Forming Machine Operator Relationship Specialty Start Date End Date Sari Pacheco MD [facility] [address] [place] [address] PCP - General 05/21/11 documented as of this encounter
--- OUTSIDE RECORDS SUMMARY | 2024-04-26 15:51 | XMS_ITS | Encounter Summary ---
Author Organization [facility] Address [facility] [place] [address] Care Team Providers Care Optical Technician Name Role Phone Sari Hay MD Primary Care Provider [phone] Reason for Referral * Surgical (Routine) - Closed Specialty Diagnoses / Procedures Referred By Emmanuel t Referred To Contact Orthopaedics Diagnoses Hammer toe of left foot Procedures TENDON TRANSFER, ANKLE, SUPERFICIAL Stanley Koo MD [facility] [place] [address] [facility] [address] Referral ID Status Reason Start Date Expiration Date V isits Requested Visits Authorized [id number] Closed Specialty Service Requested 07/18/2015 07/17/2016 1 1 * Surgical (Routine) - Closed Specialty Diagnoses / Procedures Referred By Contbucky t Referred To Contact Orthopaedics Diagnoses Hammer toe of left foot Procedures OSTEOTOMY, METATARSAL, OTHER THAN FIRST, EACH Stanley Koo MD [facility] DR [place] [address] [facility] Orthopaedics [address] [place] [phone] Referral ID Status Reason Start Date Expiration Date V isits Requested Visits Authorized [id number] Closed Specialty Service Requested 07/18/2015 07/17/2016 1 1 Reason for Visit * Reason Comments Left Foot Pain Encounter Details Date Type Department Care Team (Late st Contact Info) Description 07/18/2015 3:00 PM EDT Office [place] [address] Stanley Koo MD [facility] DR [place] [address] Hammer toe of left foot Social History [...] Sign Reading Time Taken Comments Blood Pressure 102/65 07/18/2015 3:01 PM EDT Pulse 70 07/18/2015 3:01 PM EDT Temperature - - Respiratory Rate - - Oxygen Saturation - - Inhaled Oxygen Concentration - - Weight 120.2 kg (265 lb) 07/18/2015 3:01 PM EDT verbal Height 175.3 cm (5' 9) 07/18/2015 3:01 PM EDT v erbal Body Mass Index 39.13 07/18/2015 3:01 PM EDT documented in this encounter Progress Notes * Stanley Koo MD - 07/19/2015 3:45 PM EDT 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 She is seen here today regarding left foot pain located predominantly at the ball of her foot at the base of the second toe. She has had symptoms for about 18 months. Note that she had surgery for hammertoe repair by Dr. Frias in [facility] on 10/04/2014. Unfortunately, she has continued symptoms in that region even following the surgery. She has been treated by Dereck Nieto, physical therapist in that area unsuccessfully. She has used an rfza-pnx-gdbvgry orthotics also, this has only been minimally helpful. She is here today for evaluation and discussion of treatment options. The patient's past history is notable for general good health. She takes thyroid replacement and lisinopril for hypertension. She has an allergy to codeine. She denies smoking cigarettes and drinks ethanol on occasion. OBJECTIVE: Evaluation today reveals a pleasant healthy-appearing woman, in no distress. She stands 5 feet 9 inches tall and weighs 265 pounds. There is a well-healed surgical scar at the dorsum of the second toe PIP joint. It is approximately two quarters of an inch in length. Alignment of the PIP joint is excellent. There is no motion there. The metatarsophalangeal joint sits in mild varus thus leaving a gap between the first and second toes and the third toe crossing under the second. Radiographs were taken at the [facility]. They demonstrate a well-aligned great toe with varus alignment of the second toe with mild subluxation of the metatarsophalangeal joint. I have reviewed the operative note from Dr. Frias, which described the effusion of the PIP joint with a transverse capsulotomy at the PIP joint. There is no discussion of any surgery to the tendons plantarly. ASSESSMENT: Persistent metatarsal head pain post hammertoe repair. PLAN: I have discussed the situation with the patient. I have told her I though she would benefit from either a larger metatarsal support, but that surgical correction was possible. She is most interested in surgical correction. In this case, I would recommend a Gabi osteotomy at the metatarsal head, most likely in conjunction with a Girdlestone type tendon transfer to realign the metatarsophalangeal joint. Additionally, one might consider a basilar phalangeal osteotomy to help correct the varus deformity. She understands our approach to this problem. I have told her she will have to be on a limited weightbearing regimen for about six weeks following surgery. We discussed the benefits and risks of surgery, which included, but are not limited infection, neurovascular damage, failure to resolve symptoms, need for further surgery, and hardware failure. Questions were asked and answered and surgical consent is signed. I will see with the above-noted repair of the second toe at the patient's earliest convenience. documented in this encounter Plan of Treatment Not on file documented as of this encounter Procedures Procedure Name Priority Date/Time Associated Diagnosis Comments OSTEOTOMY, METATARSAL, OTHER THAN FIRST, EACH Routine 07/18/2015 4:08 PM EDT Hammer Toe Of Left Foot TENDON TRANSFER, ANKLE, SUPERFICIAL Routine 07/18/2015 4:08 PM EDT Hammer Toe Of Left Foot documented in this encounter Visit Diagnoses Diagnosis Hammer toe of left foot documented in this encounter Care Teams Optical Technician Relationship Specialty Start Date End Date Sari Hay MD [facility] [address] [place] [address] PCP - General 05/21/11 documented as of this encounter
--- OUTSIDE RECORDS SUMMARY | 2024-04-26 15:51 | XMS_ITS | Encounter Summary ---
Author Organization [facility] [place] [address] Care Team Providers Care Comic Artist Name Role Phone Sari Hay MD Primary Care Provider [phone] Encounter Details Date Type Department Care Team (Latest Contact Info) Description 06/02/2011 10:16 AM EDT - 06/02/2011 11:59 PM EDT Hospital [place] [address] Abnormal findings on diagnostic imaging of breast [...] Associated Diagnosis Comments SURGICAL PATHOLOGY REPORT Routine 06/02/2011 1:02 PM EDT MAMMO SPECIMEN Routine 06/02/2011 12:51 PM EDT Abnormal findings on diagnostic imaging of breast documented in this encounter Results * Surgical Pathology Report (06/02/2011 1:02 PM EDT) Surgical Pathology Report [id number] ? Location: 3S The signing pathologist has (i) examined the relevant preparation(s) for the specimen(s) and (ii) rendered or confirmed the diagnosis(es). . ?Pathology Surgical Pathology Final Report Clinical Information Specimen Submitted: A - Right breast Clinical History/Diagnosis: Focal asymmetry FCD/SCA Report to: Sari Hay MD [facility] [address] [place], [place] ??[address] Gross Description Labeled/Fixative: ? Right breast, formalin. Qty/Size/Weight: ?Fragments, aggregating 2.5 x 2.3 x 0.5 cm. Tissue Description: ?? Blake-yellow fibroadipose tissue. Sections/Processing: ??(T2) ??vms/PPS Microscopic Description Slides reviewed, microscopic description not recorded. Diagnosis Needle biopsies: ?Right breast. Diagnosis: ?1. Pseudoangiomatous hyperplasia. ?2. Mild usual ductal hyperplasia and cysts. Microcalcifications: ??N/A CR-0 06/03/11 [place] 06/03/11 Verified by: ? Flower MELGAR, Devin More ?Pathologist ?(Electronic Signature) The attending pathologist whose signature appears on this report has reviewed all diagnostic slides and has edited the gross and/or microscopic portion of the report in rendering the final pathologic diagnosis. Comment Dr. Brooks reviewed the case and concurs with the diagnosis. SYED RAZOIUM 06/02/2011 1:02 PM EDT Norberto Thao MD PATHOLOGY/CYTOLOGY O RDERABLES SYED RAZOIUM * Mammo specimen (06/02/2011 12:51 PM EDT) Anatomical Region Laterality [...] breast documented in this encounter Care Teams Comic Artist Relationship Specialty Start Date End Date Sari Hay MD [address] [place] [address] PCP - General 05/21/11 documented as of this encounter
--- OUTSIDE RECORDS SUMMARY | 2024-04-26 15:51 | XMS_ITS | Encounter Summary ---
Author Organization [facility] Address [facility] [place] [address] Care Team Providers Care Shellfish Shucker Name Role Phone Sari Hay MD Primary Care Provider [phone] Encounter Details Date Type Department Care Team (Latest Contact Info) Description 11/08/2015 3:25 PM EST - 11/08/2015 11:59 PM [facility] Encounter XRay at [address] [place] [address] Stanley Koo MD [facility] [place] [address] S/P orthopedic surgery, follow-up exam Discharge Disposition: Home Social History Tobacco Use [...] Sig Dispensed Refills Start Date End Date lisinopril (PRINIVIL;ZESTRIL) 30 mg Tablet Take 30 mg by mouth daily. 02/24/2015 10/28/2019 documented as of this encounter Plan of Treatment Not on file documented as of this encounter Procedures Procedure Name Priority Date/Time Associated Diagnosis Comments XR FOOT MIN 3 VIEWS LEFT Routine 11/08/2015 3:47 PM EST S/P orthopedic surgery, follow-up exam documented in this encounter Results * XR Foot Minimum 3 Views Left (GENERIC) (11/08/2015 3:47 PM EST) Anatomical Region Laterality Modality Foot Left Digital Radiogra phy Impressions 11/08/2015 3:52 PM EST IMPRESSION: New fracture through proximal aspect of second proximal phalanx. Narrative 11/08/2015 3:52 PM EST EXAMINATION: XR FOOT MINIMUM 3 VIEWS LEFT CLINICAL HISTORY: post surgery TECHNIQUE: AP lateral oblique of left foot COMPARISON: 07/18/2015 FINDINGS: There is a new transverse fracture through the proximal aspect of the second proximal phalanx. The distal fracture fragment is displaced about 5 mm laterally with respect to the proximal fracture fragment. The fracture does not appear to extend into the second metatarsal-phalangeal joint. No other fracture or dislocation is seen. Procedure Note Abdulkadir Salcido MD - 11/08/2015 EXAMINATION: XR FOOT MINIMUM 3 VIEWS LEFT CLINICAL HISTORY: post surgery TECHNIQUE: AP lateral oblique of left foot COMPARISON: 07/18/2015 FINDINGS: There is a new transverse fracture through the proximal aspect of thesecond proximal phalanx. The distal fracture fragment is displaced about 5 mmlaterally with respect to the proximal fracture fragment. The fracture does notappear to extend into the second metatarsal-phalangeal joint. No other fracture or dislocation is seen. IMPRESSION IMPRESSION: New fracture through proximal aspect of second proximal phalanx. Stanley Koo MD IMG DX ORDERABLES documented in this encounter Visit Diagnoses Diagnosis S/P orthopedic surgery, follow-up exam Follow-up examination, following other surgery documented in this encounter Care Teams Shellfish Shucker Relationship Specialty Start Date End Date Sari Hay MD [facility] [address] [place] [address] PCP - General 05/21/11 documented as of this encounter
--- OUTSIDE RECORDS SUMMARY | 2024-04-26 15:51 | XMS_ITS | Encounter Summary ---
Author Organization [facility] Address [facility] [place] [address] Care Team Providers Care Electric Operator Name Role Phone Sari Hay MD Primary Care Provider [phone] Encounter Details Date Type Department Care Team (Late st Contact Info) Description 08/14/2011 Ancillary Procedure [place] [address] Sari Hay MD [facility] [address] [facility] [address] [place], [place] [id number] Social History Tobacco Use Types Packs/Day Years [...] Associated Diagnosis Comments FILM LIBRARY STORAGE ONLY MR LOWER EXTREMITY Routine 08/14/2011 12:00 AM EST documented in this encounter Results * Film Library- Storage Only MR Lower Extremity (08/14/2011 12:00 AM EST) Narrative CORINNA - 06/19/2021 10:36 AM EDT This exam is auto-finalizing. It's purpose is for storage only. Sari Hay MD G FILM LIBRARY ORD ERABLES [place], [place] documented in this encounter Visit Diagnoses Not on filedocumented in this encounter Care Teams Electric Operator Relationship Specialty Start Date End Date Sari Hay MD [address] [place] [address] PCP - General 05/21/11 documented as of this encounter
--- OUTSIDE RECORDS SUMMARY | 2024-04-26 15:51 | XMS_ITS | Encounter Summary ---
Author Organization [facility] Address [facility] [place] [address] Care Team Providers Care Laundry Worker Name Role Phone Sari Hay MD Primary Care Provider [phone] Encounter Details Date Type Department Care Team (Late st Contact Info) Description 05/21/2011 Orders Only [address] [address] Erika Petersen MD [facility] [place] [address] Abnormal ultrasound of breast (Primary Dx) Social History Tobacco Use Types Packs/Day Years Used Date Smoking Tobacco: Never Assessed Sex and Gender Information Value Date Recorded Sex Assigned at Not on file Gender Identity Not on file Sexual Orientation Not on file documented as of this encounter Plan of Treatment Not on file documented as of this encounter Results * Mammo direct digital unilateral (05/22/2011 10:42 AM EDT) Anatomical Region Laterality Modality Breast N/A Mammography 05/22/2011 10:4 2 AM EDT Erika Petersen MD IMG MAMMO ORDERABLES * Mammo- US biopsy (05/22/2011 10:42 AM EDT) Anatomical Region Laterality Modality Breast N/A Mammography 05/22/2011 10:4 2 AM EDT Addenda Addendum on 05/27/2011 8:35 AM EDT Addendum Begins Accession number [id number] is included in this study. ?? Addendum Ends Addendum on 05/26/2011 11:07 AM EDT Addendum Begins Accession number [id number] is included in this study. ?? Addendum [...] the procedure without a resident. Home phone: [phone] Cell phone: [phone] Narrative 05/23/2011 9:50 AM EDT ULTRASOUND GUIDED BIOPSY OF THE LEFT BREAST ON 05/22/11: Informed consent was obtained, sterile technique and 1% lidocaine used for local anesthesia and ultrasound guidance used throughout the procedure. ?? Clinical indication: Left breast 6mm mass in the lower, outer quadrant at 0700, 6cm from the nipple. 12-gauge Atec US device 4 core biopsy specimens obtained. ?? A SMark Atec 13 ([place]) Cylinder marker clip was placed. Cranio-caudal and lateral digital mammography performed to determine biopsy marker placement, which was shown to be at the biopsy site. Satisfactory sampling was obtained. There were no procedural complications. Imaging diagnosis: FCD versus DCIS versus IDC. 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 Clinical indication: Left breast 6mm mass in the lower, outer quadrant [id number], 6cm from the nipple. 12-gauge Atec US device 4 core biopsy specimens obtained. A SMark Atec 13 (US) Cylinder marker clip was [...] the procedure without a resident. Home phone: [phone] Cell phone: [phone] Erika Petersen MD IMG MAMMO ORDERABLES documented in this encounter Visit Diagnoses Diagnosis Abnormal ultrasound of breast- Primary Other (abnormal) findings on radiological examination of breast Abnormal ultrasound of breast Other (abnormal) findings on radiological examination of breast documented in this encounter Care Teams Laundry Worker Relationship Specialty Start Date End Date Sari Hay MD [address] [place] [address] PCP - General 05/21/11 documented as of this encounter
--- OUTSIDE RECORDS SUMMARY | 2024-04-26 15:51 | XMS_ITS | Encounter Summary ---
Author Organization [facility] Address [facility] [place] [address] Care Team Providers Care Training And Development Head Name Role Phone Sari Hay MD Primary Care Provider [phone] Reason for Visit * Reason Comments Follow Up Surgery Left Foot Ostetomy D OS 10/01/15 Encounter Details Date Type Department Care Team (Late st Contact Info) Description 10/25/2015 11:30 AM EST Office [place] [address] Stanley Koo MD [facility] [place] [address] S/P orthopedic surgery, follow-up exam Social History [...] Sign Reading Time Taken Comments Blood Pressure 114/72 10/25/2015 11:33 AM EST Pulse 68 10/25/2015 11:33 AM EST Temperature - - Respiratory Rate - - Oxygen Saturation - - Inhaled Oxygen Concentration - - Weight 116.1 kg (256 lb) 10/25/2015 11:33 AM EST Height 177.8 cm (5' 10) 10/25/2015 11:33 AM EST Body Mass Index 36.73 10/25/2015 11:33 AM EST documented in this encounter Progress Notes * Stanley Koo MD - 10/25/2015 11:57 AM EST SUBJECTIVE: Ms. Eugene is now four weeks out from left foot second toe Girdlestone tendon transfer with Blayne procedure base of the proximal phalanx for malalignment. She has done well. She has been in a tape dressing and has kept it in place. She has been compliant with her instructions to remain limited weightbearing status. OBJECTIVE: The toes are in the good position. There is no swelling at the base of the proximal phalanx as one might expect. The wounds are nicely healed. There is no sign of infection. There was a single retained suture plantarly which was removed today without difficulty. ASSESSMENT: Good progress post surgery outlined above. PLAN: The suture was removed as stated above and had another tape dressings applied holding the toe into lateral flexion and neutral position. We will see her back in two weeks. We will remove her dressing first and then send her for an x-ray. documented in this encounter Plan of Treatment Not on file documented as of this encounter Results * XR Foot Minimum [...] follow-up exam Follow-up examination, following other surgery S/P orthopedic surgery, follow-up exam Follow-up examination, following other surgery documented in this encounter Care Teams Training And Development Head Relationship Specialty Start Date End Date Sari Hay MD [address] [place] [address] PCP - General 05/21/11 documented as of this encounter
--- OUTSIDE RECORDS SUMMARY | 2024-04-26 15:51 | XMS_ITS | Encounter Summary ---
Author Organization [facility] Address [facility] [place] [address] Care Team Providers Care Medical Chief Technician Name Role Phone Sari Hay MD Primary Care Provider [phone] Reason for Visit * Reason Comments Follow Up Surgery Left foot osetotomy DOS 10/01/15 Encounter Details Date Type Department Care Team (Late st Contact Info) Description 01/24/2016 9:30 AM EDT Office [place] [address] Stanley Koo MD [facility] [place] [address] S/P orthopedic surgery, follow-up exam Social History [...] Reading Time Taken Comments Blood Pressure 108/68 01/24/2016 9:21 AM EDT Pulse 68 01/24/2016 9:21 AM EDT Temperature - - Respiratory Rate - - Oxygen Saturation - - Inhaled Oxygen Concentration - - Weight 115.7 kg (255 lb) 01/24/2016 9:21 AM EDT Height 177.8 cm (5' 10) 01/24/2016 9:21 AM EDT Body Mass Index 36.59 01/24/2016 9:21 AM EDT documented in this encounter Progress Notes * Stanley Koo MD - 01/24/2016 9:55 AM EDT SUBJECTIVE: Ms. Eugene is status post revision left 2nd hammertoe with Girdlestone osteotomy and Blayne osteotomy at the base of the proximal phalanx. She is somewhat better than she was prior to surgery, but she still has significant plantar pain and she feels as if it may have moved somewhat laterally to where she had her prior pain, but this is hard for her to define. She is relatively pain-free at rest, but if she hikes for 2 or 3 miles, she will develop pain to a level of 6 on a scale of 10 in spite of the fact that she has been using metatarsal support and/or a Comf-Orthotic insole. Her wound is nicely healed. The 3rd toe is curling under the second. Not quite as severely as it was preoperatively, but it is still significant. She has good pulses and distal sensation, but there is some numbness at the 2nd toe. Radiographs are taken today. They show complete healing of the osteotomy at the base of the phalanx with 7 degree of angular correction at the metatarsal phalangeal joint as a result of this closing wedge osteotomy. The 3rd toe does curl slightly under the 2nd. There is a fusion of the PIP joint present. Pain is located plantarly in the region of the 2nd or 3rd metatarsal head. I have difficulty on examination determining exactly which is more painful. There is no callus present. ASSESSMENT: Persistent plantar symptoms left forefoot. PLAN: Will obtain the new MRI scan to help further define her pathology. Will see her back in about 2 weeks and have the scan on the same day as her visit with me. documented in this encounter Plan of Treatment Not on file documented as of this encounter Visit Diagnoses Diagnosis S/P orthopedic surgery, follow-up exam Follow-up examination, following other surgery documented in this encounter Care Teams Medical Chief Technician Relationship Specialty Start Date End Date Sari Hay MD [facility] [address] [place] [id number] PCP - General 05/21/11 documented as of this encounter
--- OUTSIDE RECORDS SUMMARY | 2024-04-26 15:51 | XMS_ITS | Encounter Summary ---
[facility] [place] [address] Care Team Providers Care Tube Laser Operator Name Role Phone Sari Hay MD Primary Care Provider [phone] Encounter Details Date Type Department Care Team (Latest Contact Info) Description 05/28/2011 9:10 AM EDT - 05/28/2011 11:59 PM EDT Hospital [place] [address] CLINIC, DR VYAS Abnormal ultrasound of breast Discharge Disposition: Home [...] Diagnosis Comments MAMMO DIRECT DIGITAL UNILATERAL Routine 05/22/2011 10:42 AM EDT Abnormal ultrasound of breast documented in this encounter Results * Mammo direct digital unilateral (05/22/2011 10:42 AM EDT) Anatomical Region Laterality Modality Breast N/A Mammography 05/22/2011 10:4 2 AM EDT Erika Petersen MD IMG MAMMO ORDERABLES documented in this encounter Visit Diagnoses Diagnosis Abnormal ultrasound of breast Other (abnormal) findings on radiological examination of breast documented in this encounter Care Teams Tube Laser Operator Relationship Specialty Start Date End Date Sari Hay MD [address] [place] [address] PCP - General 05/21/11 documented as of this encounter
--- OUTSIDE RECORDS SUMMARY | 2024-04-26 15:51 | XMS_ITS | Encounter Summary ---
Author Organization Counts Include [facility] Address [facility] [place] [address] Care Team Providers Care Edi Specialist Name Role Phone Sari Hay MD Primary Care Provider [phone] Reason for Visit * Auth/Cert - Closed [...] Expiration Date Visits Re quested Visits Authorized [id number] Closed 1 1 Encounter Details Date Type Department Care Team (Latest Contact Info) Description 10/01/2015 - 10/01/2015 6:14 AM EST Hospital Encounter [place] [address] Stanley Koo MD [facility] [address] [place] [address] Discharge Disposition: Home Social History Tobacco Use [...] as of this encounter Plan of Treatment Pending Results Name Type Priority Associated Diagnoses Date /Time FILM LIBRARY-FLUORO OR [id number] ONL Imaging Routine 10/01/2015 8:1 9 AM EST documented as of this encounter Visit Diagnoses Not on filedocumented in this encounter Care Teams Edi Specialist Relationship Specialty Start Date End Date Sari Hay MD [address] [place] [address] PCP - General 05/21/11 documented as of this encounter
--- OUTSIDE RECORDS SUMMARY | 2024-04-26 15:51 | XMS_ITS | Encounter Summary ---
Author Organization [facility] Address [facility] [place] [address] Care Team Providers Care Policy Value Calculator Name Role Phone Sari Hay MD Primary Care Provider [phone] Reason for Visit * Reason Comments Follow Up Surgery Left Foot Osteotomy DOS 10/01/15 Encounter Details Date Type Department Care Team (Late st Contact Info) Description 11/08/2015 3:15 PM EST Office [place] [address] Stanley Koo MD [facility] [place] [address] S/P orthopedic surgery, follow-up exam Social History [...] Sign Reading Time Taken Comments Blood Pressure 122/77 11/08/2015 3:12 PM EST Pulse 77 11/08/2015 3:12 PM EST Temperature - - Respiratory Rate - - Oxygen Saturation - - Inhaled Oxygen Concentration - - Weight 115.7 kg (255 lb) 11/08/2015 3:12 PM EST Height 177.8 cm (5' 10) 11/08/2015 3:12 PM EST Body Mass Index 36.59 11/08/2015 3:12 PM EST documented in this encounter Progress Notes * Stanley Koo MD - 11/08/2015 6:43 PM EST SUBJECTIVE: Ms. Eugene returns. She is now six weeks status post right foot revision and second hammertoe surgery. She had Girdlestone procedure along with an osteotomy at the base of the phalanx for angular correction. She has done well. She has no complaints of pain. She has been in a boot. She does report that yesterday she walked out of her door into the hallway without the boot and had some plantar pain. OBJECTIVE: Wound is nicely healed. There is a small retained suture plantarly, which I have removed. The swelling is diminished. The toe alignment is good. Radiographs are taken today. They show early consolidation at the phalangeal osteotomy with good correction of angular deformity. ASSESSMENT: Good progress. PLAN: The patient will wean from the boot. I have given her a set of Hapad insoles with metatarsal support to try and further relieve symptoms. We will see her back in about six weeks for evaluation. I did mention physical therapy to her. She is going to contact me if she would like to proceed in that direction. documented in this encounter Plan of Treatment Not on file documented as of this encounter Visit Diagnoses Diagnosis S/P orthopedic surgery, follow-up exam Follow-up examination, following other surgery documented in this encounter Care Teams Policy Value Calculator Relationship Specialty Start Date End Date Sari Hay MD [address] [place] [address] PCP - General 05/21/11 documented as of this encounter
--- OUTSIDE RECORDS SUMMARY | 2024-04-26 15:51 | XMS_ITS | Encounter Summary ---
Author Organization Replaced By [facility] Address [facility] [place] [address] Care Team Providers Care Test Kitchen Home Economist Name Role Phone Sari Hay MD Primary Care Provider [phone] Encounter Details Date Type Department Care Team (Late st Contact Info) Description 05/22/2011 Orders [place] [address] Marj Reddy MD [facility] [place] [address] Social History Tobacco Use Types Packs/Day Years Used Date Smoking Tobacco: Never Assessed Sex and Gender Information Value Date Recorded Sex Assigned at Not on file Gender Identity Not on file Sexual Orientation Not on file documented as of this encounter Progress Notes * Marj Reddy MD - 05/22/2011 8:06 AM EDT Procedure date: today Procedure type: right breast US guided biopsy Special Instructions: NONE Allergies: Review of patient's allergies indicates not on file. Medications: currently has no medications in their medication list. Anticoagulation status: none Imaging reviewed and procedural plan approved by Dr. MARJ HODGES documented in this encounter Plan of Treatment Not on file documented as of this encounter Visit Diagnoses Not on filedocumented in this encounter Care Teams Test Kitchen Home Economist Relationship Specialty Start Date End Date Sari Hay MD [address] [place] [address] PCP - General 05/21/11 documented as of this encounter
--- OUTSIDE RECORDS SUMMARY | 2024-04-26 15:51 | XMS_ITS | Encounter Summary ---
Author Organization [facility] [place] [address] Care Team Providers Care Senior Payroll Administrator Name Role Phone Sari Hay MD Primary Care Provider [phone] Encounter Details Date Type Department Care Team (Late st Contact Info) Description 09/27/2015 External Results [place] [address] Nelly Mendez APRN [address] [place] [address] Social History Tobacco Use Types Packs/Day Years [...] Procedure Name Priority Date/Time Associated Diagnosis Comments LAB SCAN Routine 09/25/2015 documented in this encounter Results * Scan Doc: Lab (09/25/2015) Nelly Mendez APRN MEDIA MGR SCAN EXT ORDR/RSLT documented in this encounter Visit Diagnoses Not on filedocumented in this encounter Care Teams Senior Payroll Administrator Relationship Specialty Start Date End Date Sari Hay MD [facility] [address] [place] [address] PCP - General 05/21/11 documented as of this encounter
--- OUTSIDE RECORDS SUMMARY | 2024-04-26 15:51 | XMS_ITS | Encounter Summary ---
Author Organization [facility] Address [facility] [place] [address] Care Team Providers Care Dependency Counselor Name Role Phone Sari Hay MD Primary Care Provider [phone] Encounter Details Date Type Department Care Team (Late st Contact Info) Description 02/10/2019 Telephone [place] [phone] Ricky Lozoya MD [facility] [place] [address] Social History Tobacco Use Types Packs/Day Years [...] encounter Miscellaneous Notes * Telephone Encounter - Ricky Lozoya MD - 02/10/2019 2:00 AM EDT Transfer center call from Dr Harrison at [facility] re: [phone] otherwise healthy lady that heperformed a TKA on in 09/2017. He reports that she did not do well with respect to range of motion and patellar pain and so he performed an arthroscopic debridement of fibrotic material/adhesions around the patella on 01/18/19. Today she presented to clinic with the acute onset of pain with a bulging portal incision. He aspirated approximately 20 cc sanguinous appearing fluid from the knee, which he reports that he discarded without sending for analysis. She continued to do poorly and presented to the ED this evening with continued pain. She has a WBC of >13, but is reportedly febrile, rr 18, hr 70, bp 123/77. 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 Although he reports that he could perform an I&D and polyswap of the patient's knee (which appears to be indicated), Dr Harrison is worried that if his aspirate or intraoperative fluid and tissue cultures were to return negative, he would be unable to send the polyethylene implants for sonification and for this reason, the patient should be transferred to [facility] for management. Orthopaedics will evaluate the patient upon arrival. Please keep NPO and hold antibiotics. Ricky Lozoya MD p [phone] 02/10/19 2:25 AM documented in this encounter Plan of Treatment Not on file documented as of this encounter Visit Diagnoses Not on filedocumented in this encounter Care Teams Dependency Counselor Relationship Specialty Start Date End Date Sari Hay MD [address] [place] [address] PCP - General 05/21/11 documented as of this encounter
--- OUTSIDE RECORDS SUMMARY | 2024-04-26 15:51 | XMS_ITS | Encounter Summary ---
Author Organization [facility] Address [facility] [facility] [place] [address] Care Team Providers Care Professor Of Theology Name Role Phone Sari Hay MD Primary Care Provider [phone] Reason for Referral * Diagnostic Test (Routine) - Closed Specialty Diagnoses / Procedures Referred By Contac t Referred To Contact Radiology Diagnoses Hammer toe of left foot S/P orthopedic surgery, follow-up exam Procedures MRI Foot WO Contrast Left Stanley Koo MD [facility] [place] [address] [place] [address] Referral ID Status Reason Start Date Expiration Date V isits Requested Visits Authorized [id number] Closed Specialty Service Requested 01/24/2016 03/23/2016 1 1 Reason for Visit * Diagnostic Test (Routine) - Closed Specialty Diagnoses / Procedures Referred By Contbucky t Referred To Contact Radiology Diagnoses Hammer toe of left foot S/P orthopedic surgery, follow-up exam Procedures MRI Foot WO Contrast Left Stanley Koo MD [facility] [place] [address] [place] [address] Referral ID Status Reason Start Date Expiration Date V isits Requested Visits Authorized [id number] Closed Specialty Service Requested 01/24/2016 03/23/2016 1 1 Encounter Details Date Type Department Care Team (Latest Contact Info) Description 02/01/2016 11:06 AM EDT - 02/01/2016 11:59 PM EDT Hospital Encounter MRI at [facility] [place] [address] Stanley Koo MD [facility] [place] [address] Hammer toe of left foot; S/P orthopedic surgery, follow-up exam Discharge Disposition: [...] Name Priority Date/Time Associated Diagnosis Comments MRI FOOT WO CONTRAST LEFT Routine 02/01/2016 12:57 PM EDT Hammer toe of left foot S/P orthopedic surgery, follow-up exam documented in this encounter Results * MRI Foot WO [...] MR images of the forefoot were acquired. [id number] images were done density weighted images and [...] First metatarsal-phalangeal joint osteoarthritis. Stanley Koo MD IMG MRI ORDERABLES documented in this encounter Visit Diagnoses Diagnosis Hammer toe of left foot S/P orthopedic surgery, follow-up exam Follow-up examination, following other surgery documented in this encounter Care Teams Professor Of Theology Relationship Specialty Start Date End Date Sari Hay MD [facility] [address] [place] [address] PCP - General 05/21/11 documented as of this encounter
--- OUTSIDE RECORDS SUMMARY | 2024-04-26 15:51 | XMS_ITS | Encounter Summary ---
Author Organization [facility] [place] [address] Care Team Providers Care Optical Fabrication Technician Name Role Phone Sari Hay MD Primary Care Provider [phone] Encounter Details Date Type Department Care Team (Late st Contact Info) Description 05/15/2014 8:30 PM EDT - 05/15/2014 11:59 PM EDT Hospital Encounter [place] [address] Stanley Koo MD [facility] [place] [address] Pain Social History Tobacco Use Types Packs/Day [...] Diagnosis Comments FILM LIBRARY STORAGE ONLY MR FOOT Routine 05/15/2014 8:30 PM EDT Pain documented in this encounter Results * Film Library- Storage only MR Foot (05/15/2014 8:30 PM EDT) Narrative [facility] - 07/18/2015 8:31 PM EDT See PACS for result report. Stanley Koo MD G FILM LIBRARY ORD ERABLES [address] [place], [place] documented in this encounter Visit Diagnoses Diagnosis Pain Generalized pain documented in this encounter Care Teams Optical Fabrication Technician Relationship Specialty Start Date End Date Sari Hay MD [address] [facility] [address] [place] [address] PCP - General 05/21/11 documented as of this encounter
--- OUTSIDE RECORDS SUMMARY | 2024-04-26 15:51 | XMS_ITS | Encounter Summary ---
Author Organization [facility] [place] [place] [address] Care Team Providers Care Retail Agent Name Role Phone Sari Hay MD Primary Care Provider [phone] Encounter Details Date Type Department Care Team (Latest Contact Info) Description 06/02/2011 10:15 AM EDT - 06/02/2011 11:59 PM EDT Hospital En[place] [address] CLINIC, Sari Barrera MD [employer] [address] [place] [address] Abnormal findings on diagnostic imaging of breast Discharge Disposition: Home Social History [...] Name Priority Date/Time Associated Diagnosis Comments MAMMO STEREOTACTIC BIOPSY Routine 06/02/2011 12:49 PM EDT Abnormal findings on diagnostic imaging of breast documented in this encounter Results * Mammo stereotactic (06/02/2011 12:49 PM EDT) Anatomical Region Laterality Modality Breast N/A Mammography 06/02/2011 12:4 9 PM EDT Impressions 06/03/2011 3:31 PM EDT [...] breast documented in this encounter Care Teams Retail Agent Relationship Specialty Start Date End Date Sari Hay MD [employer] [address] [place] [address] PCP - General 05/21/11 documented as of this encounter
--- OUTSIDE RECORDS SUMMARY | 2024-04-26 15:51 | XMS_ITS | Encounter Summary ---
Author Organization [facility] [place] [address] Care Team Providers Care Cone Marker Name Role Phone Srai Hay MD Primary Care Provider [phone] Reason for Visit * Reason Comments Follow Up Surgery Left Foot Ostetomy D OS 10/01/15 Encounter Details Date Type Department Care Team (Late st Contact Info) Description 10/11/2015 9:30 AM EST Office [place] [address] Stanley Koo MD [facility] [place] [address] S/P orthopedic surgery, follow-up exam Social History [...] Sign Reading Time Taken Comments Blood Pressure 122/79 10/11/2015 9:32 AM EST Pulse 80 10/11/2015 9:32 AM EST Temperature 36.5 ??C (97.7 ??F) 10/11/2015 9:32 AM ES T Respiratory Rate - - Oxygen Saturation - - Inhaled Oxygen Concentration - - Weight 115.7 kg (255 lb) 10/11/2015 9:32 AM EST Height 177.8 cm (5' 10) 10/11/2015 9:32 AM EST Body Mass Index 36.59 10/11/2015 9:32 AM EST documented in this encounter Progress Notes * Stanley Koo MD - 10/11/2015 3:26 PM EST SUBJECTIVE: Ms. Eugene is now two and half weeks status post left foot revision, left revision hammertoe correction with flexor tendon transfer and osteotomy, base of the proximal phalanx. Ms. Eugene has done nicely. She has no complaints of pain. OBJECTIVE: Wounds look good. She has mild swelling. Alignment is good. There is no distal sensory compromise. ASSESSMENT: Good progress. PLAN: Sutures were removed and Steri-Strips are applied. The toe was taped into neutral position. Soft dressing was applied and the patient was issued a short-leg walker boot. We will see her back in two weeks for revision of the taping and reevaluation. We will take an x-ray at the six-week suzi. documented in this encounter Plan of Treatment Not on file documented as of this encounter Visit Diagnoses Diagnosis S/P orthopedic surgery, follow-up exam Follow-up examination, following other surgery documented in this encounter Care Teams Cone Marker Relationship Specialty Start Date End Date Sari Hay MD [address] [place] [address] PCP - General 05/21/11 documented as of this encounter
--- OUTSIDE RECORDS SUMMARY | 2024-04-26 15:51 | XMS_ITS | Encounter Summary ---
Author Organization [facility] Address [facility] [place] [address] Care Team Providers Care Abalone Diver Name Role Phone Sari Hay MD Primary Care Provider [phone] Encounter Details Date Type Department Care Team (Late st Contact Info) Description 09/07/2017 Ancillary Procedure [place] [address] Social History Tobacco Use Types Packs/Day Years [...] DX Knee (09/07/2017 12:00 AM EST) Narrative [facility] - 02/10/2019 2:35 AM EDT This exam is auto-finalizing. It's purpose is for storage only. Karen Nixon MD IMG FILM LIBRARY OR DERABLES DH [place], [place] documented in this encounter Visit Diagnoses Not on filedocumented in this encounter Care Teams Abalone Diver Relationship Specialty Start Date End Date Sari Hay MD [facility] [address] [place] [address] PCP - General 05/21/11 documented as of this encounter
--- OUTSIDE RECORDS SUMMARY | 2024-04-26 15:51 | XMS_ITS | Encounter Summary ---
Author Organization [facility] Address [facility] [place] [address] Care Team Providers Care Chief Executive Officer Name Role Phone Sari Hay MD Primary Care Provider [phone] Encounter Details Date Type Department Care Team (Late st Contact Info) Description 05/23/2011 Orders Only [address] [place] [address] Marj Reddy MD [facility] [place] [address] Abnormal findings on diagnostic imaging of breast (Primary Dx) Social History Tobacco Use Types Packs/Day Years Used Date Smoking Tobacco: Never Assessed Sex and Gender Information Value Date Recorded Sex Assigned at Not on file Gender Identity Not on file Sexual Orientation Not on file documented as of this encounter Plan of Treatment Not on file documented as of this encounter Results * Mammo specimen (06/02/2011 12:51 PM EDT) [...] Marj Velasco MD IMG MAMM O ORDERABLES * Mammo direct digital unilateral (06/02/2011 12:51 [...] in one year. As discussed with Ms. Eugenetequila Thao on 06/03/11. I was present with the resident, Dr. Jiménez, for the nugent components ofthe procedure and otherwise remained immediately available for the duration ofthe procedure. I attest to having personally viewed the images/test andapprove the above interpretation. Film and interpretation reviewed by the attending Marj Velasco MD IMG MAMM O ORDERABLES * Mammo stereotactic (06/02/2011 12:49 PM EDT) [...] Diagnosis Abnormal findings on diagnostic imaging of breast- Primary Other (abnormal) findings on radiological examination of breast Abnormal findings on diagnostic imaging of breast Other (abnormal) findings on radiological examination of breast Abnormal findings on diagnostic imaging of breast Other (abnormal) findings on radiological examination of breast Abnormal findings on diagnostic imaging of breast Other (abnormal) findings on radiological examination of breast documented in this encounter Care Teams Chief Executive Officer Relationship Specialty Start Date End Date Sari Hay MD [address] [place] [address] PCP - General 05/21/11 documented as of this encounter
--- OUTSIDE RECORDS SUMMARY | 2024-04-26 15:51 | XMS_ITS | Encounter Summary ---
[facility] [place] [address] Care Team Providers Care In Flight Refueling Craftsman Name Role Phone Sari Hay MD Primary Care Provider [phone] Encounter Details Date Type Department Care Team (Latest Contact Info) Description 05/21/2011 2:48 PM EDT - 05/21/2011 11:59 PM EDT Hospital [place] [address] CLINIC, Sari Barrera MD [facility] [address] [place] [address] Abnormal mammogram, unspecified Discharge Disposition: Home Social History Tobacco Use [...] Name Priority Date/Time Associated Diagnosis Comments MAMMO BREAST US LIMITED Routine 05/21/2011 3:57 PM EDT Abnormal mammogram, unspecified documented in this encounter Results * Mammo breast US unilateral bilateral (05/21/2011 3:57 PM EDT) Anatomical Region Laterality Modality Breast N/A Mammography 05/21/2011 3:57 PM EDT Narrative 05/22/2011 2:01 PM EDT RIGHT BREAST ULTRASOUND ON 05/21/11: ?? DIAGNOSTIC IMAGING SUMMARY: ?? RIGHT BREAST LESION 1: SUSPICIOUS Right breast ultrasound (BIRADS Category 4). ?? Finding: Hypoechoic indeterminate mass. ?? Size: 7mm. ?? Location: Lower, outer quadrant, 0700, 6cm to the nipple. ?? Recommendation: Ultrasound guided core needle biopsy which has been scheduled for 05/22/11 at 9:10am. ?? Preliminary report E-mailed to JANEE Hughes on 05/22/11. ?? NARRATIVE: ?? CLINICAL INDICATION: This is a callback from the interpretation of outside mammograms given 05/16/11 on outside exams 05/09/11 and diagnostic imaging of the Right breast 05/13/11 from [facility]. Please see that report. ?? FINDINGS: The small low density mass in the lower, outer quadrant of the Right breast is seen on ultrasound as a 6 x 3.5 x 7.4mm irregular hypoechoic mass with the suggestion of an echogenic rim. No internal vascularity on color Doppler. Differential includes malignancy versus focal fibrosis, less likely cluster of cysts. Ultrasound guided core needle biopsy is recommended. ?? Procedure Note Erika Petersen MD - 05/22/2011 RIGHT BREAST ULTRASOUND ON 05/21/11: DIAGNOSTIC IMAGING SUMMARY: RIGHT BREAST LESION 1: SUSPICIOUS Right breast ultrasound (BIRADS Category4). Finding: Hypoechoic indeterminate mass. Size: 7mm. Location: Lower, outer quadrant, 0700, 6cm to the nipple. Recommendation: Ultrasound guided core needle biopsy which has beenscheduled for 05/22/11 at 9:10am. Preliminary report E-mailed to JANEE Hughes on 05/22/11. NARRATIVE: CLINICAL INDICATION: This is a callback from the interpretation of outside mammograms given 05/16/11 on outside exams 05/09/11 and diagnostic imaging ofthe Right breast 05/13/11 from [facility]. Please see that report. FINDINGS: The small low density mass in the lower, outer quadrant of theRight breast is seen on ultrasound as a 6 x 3.5 x 7.4mm irregular hypoechoicmass with the suggestion of an echogenic rim. No internal vascularity on color Doppler. Differential includes malignancy versus focal fibrosis, lesslikely cluster of cysts. Ultrasound guided core needle biopsy is recommended. Lisa Rinaldi MD IMG MAMMO ORD ERABLES documented in this encounter Visit Diagnoses Diagnosis Abnormal mammogram, unspecified documented in this encounter Care Teams In Flight Refueling Craftsman Relationship Specialty Start Date End Date Sari Hay MD [address] [place] [address] PCP - General 05/21/11 documented as of this encounter
--- OUTSIDE RECORDS SUMMARY | 2024-04-26 15:51 | XMS_ITS | Encounter Summary ---
Author Organization [facility] Address [facility] [place] [address] Care Team Providers Care College Athletic Director Name Role Phone Sari Hay MD Primary Care Provider [phone] Encounter Details Date Type Department Care Team (Latest Contact Info) Description 01/24/2016 8:30 AM EDT - 01/24/2016 11:59 PM EDT Hospital Encounter XRay at [address] [place] [address] Stanley Koo MD [facility] [place] [address] Hammer toe of left foot; S/P orthopedic [...] XR FOOT MIN 3 VIEWS LEFT Routine 01/24/2016 8:53 AM EDT Hammer toe of left foot S/P orthopedic surgery, follow-up exam documented in this encounter Results * XR Foot Minimum 3 Views Left (GENERIC) (01/24/2016 8:53 AM EDT) Anatomical Region Laterality Modality Foot Left Digital Radiogra phy Impressions 01/24/2016 10:13 AM EDT IMPRESSION: Stable alignment and progressive interval healing Narrative 01/24/2016 10:13 AM EDT EXAMINATION: XR FOOT MINIMUM 3 VIEWS LEFT CLINICAL HISTORY: asses alignment and healing TECHNIQUE: 3 views left foot COMPARISON: 11/08/2015 FINDINGS: There is stable alignment fracture of the proximal phalanx second digit with significant interval callus formation and bony remodeling. Lateral fracture lucency persists. 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 The remainder the left foot is stable in appearance. Procedure Note Marj Reddy MD - 01/24/2016 EXAMINATION: XR FOOT MINIMUM 3 VIEWS LEFT CLINICAL HISTORY: asses alignment and healing TECHNIQUE: 3 views left foot COMPARISON: 11/08/2015 FINDINGS: There is stable alignment fracture of the proximal phalanx second digitwith significant interval callus formation and bony remodeling. Lateralfracture lucency persists. Stable congenital fusion proximal and mid phalangessecond digit. The remainder the left foot is stable in appearance. IMPRESSION IMPRESSION: Stable alignment and progressive interval healing Stanley Koo MD IMG DX ORDERABLES documented in this encounter Visit Diagnoses Diagnosis Hammer toe of left foot S/P orthopedic surgery, follow-up exam Follow-up examination, following other surgery documented in this encounter Care Teams College Athletic Director Relationship Specialty Start Date End Date Sari Hay MD [address] [place] [address] PCP - General 05/21/11 documented as of this encounter
--- OUTSIDE RECORDS SUMMARY | 2024-04-26 15:51 | XMS_ITS | Encounter Summary ---
Author Organization [facility] Address [facility] [place] [address] Care Team Providers Care Health Communications Specialist Name Role Phone Sari Hay MD Primary Care Provider [phone] Encounter Details Date Type Department Care Team (Late st Contact Info) Description 10/19/2015 Orders [place] [address] Stanley Koo MD [facility] DR ORTHOPAEDIC [place] [address] Hammer toe of left foot; S/P orthopedic [...] surgery documented in this encounter Care Teams Health Communications Specialist Relationship Specialty Start Date End Date Sari Hay MD [address] [place] [address] PCP - General 05/21/11 documented as of this encounter
--- OUTSIDE RECORDS SUMMARY | 2024-04-26 15:51 | XMS_ITS | Encounter Summary ---
Author Organization [facility] Address [facility] [place] [address] Care Team Providers Care Colloid Mill Operator Name Role Phone Sari Hay MD Primary Care Provider [phone] Encounter Details Date Type Department Care Team (Late st Contact Info) Description 06/02/2011 [place] [address] Norberto Thao MD [facility] [place]ST[place] [address] Social History Tobacco Use Types Packs/Day Years Used Date Smoking Tobacco: Never Assessed Sex and Gender Information Value Date Recorded Sex Assigned at Not on file Gender Identity Not on file Sexual Orientation Not on file documented as of this encounter Progress Notes * Norberto Thao MD - 06/02/2011 11:07 AM EDT Procedure date: done today Procedure type: right Breast stereotactic biopsy Special Instructions: none Allergies: Review of patient's allergies indicates not on file. Medications: currently has no medications in their medication list. Anticoagulation status: none Imaging reviewed and procedural plan approved by Dr. NORBERTO THAO MD documented in this encounter Plan of Treatment Not on file documented as of this encounter Visit Diagnoses Not on filedocumented in this encounter Care Teams Colloid Mill Operator Relationship Specialty Start Date End Date Sari Hay MD [address] [place] [address] PCP - General 05/21/11 documented as of this encounter
--- OUTSIDE RECORDS SUMMARY | 2024-04-26 15:51 | XMS_ITS | Encounter Summary ---
Author Organization [facility] Address [facility] [place] [address] Care Team Providers Care Image Archivist Name Role Phone Sari Hay MD Primary Care Provider [phone] Encounter Details Date Type Department Care Team (Latest Contact Info) Description 07/18/2015 2:05 PM EDT - 07/18/2015 11:59 PM EDT Hospital Encounter XRay at [address] [place] [id number] Stanley Koo MD [facility] [place] [address] Left foot pain Discharge Disposition: Home Social History Tobacco Use [...] 30 mg by mouth daily. 02/24/2015 10/28/2019 Ibuprofen 200 mg Capsule Take 200 mg by mouth as needed. 10/01/2015 documented as of this encounter Plan of Treatment Not on file documented as of this encounter Procedures Procedure Name Priority Date/Time Associated Diagnosis Comments XR FOOT MINIMUM 3 VIEWS Routine 07/18/2015 2:29 PM EDT Left foot pain documented in this encounter Results * XR foot minimum [...] Diagnosis Left foot pain Pain in limb documented in this encounter Care Teams Image Archivist Relationship Specialty Start Date End Date Sari Hay MD [address] [place] [address] PCP - General 05/21/11 documented as of this encounter
--- OUTSIDE RECORDS SUMMARY | 2024-04-26 15:51 | XMS_ITS | Encounter Summary ---
Author Organization [facility] [place] [address] Care Team Providers Care Poultry Hatchery Laborer Name Role Phone Sari Hay MD Primary Care Provider [phone] Reason for Visit * Reason Onset Date Comments Follow-up 01/14/2016 RESCHEDULE APPT FOR PATIENT Encounter Details Date Type Department Care Team (Late st Contact Info) Description 01/14/2016 Telephone [place] [address] Stanley Koo MD [facility] [place] [address] Follow-up (RESCHEDULE APPT FOR PATIENT) Social History Tobacco Use Types Packs/Day Years [...] encounter Miscellaneous Notes * Telephone Encounter - Laura Bush - 01/18/2016 3:45 PM EDT Patient scheduled. * Telephone Encounter - Moraima Myers - 01/16/2016 10:00 AM EDT I have called & left a 2nd message for the patient to call back & schedule. NXR 10/01/15 LEFT FOOT OSTEOTOMY * Telephone Encounter - Moraima Myers - 01/14/2016 9:41 AM EDT I have called and left a message for patient to call and reschedule an appointment. NXR 10/01/15 LEFT FOOT OSTEOTOMY documented in this encounter Plan of Treatment Not on file documented as of this encounter Visit Diagnoses Not on filedocumented in this encounter Care Teams Poultry Hatchery Laborer Relationship Specialty Start Date End Date Sari Hay MD [address] [place] [address] PCP - General 05/21/11 documented as of this encounter
--- OUTSIDE RECORDS SUMMARY | 2024-04-26 15:52 | XMS_ITS | Encounter Summary ---
Author [facility] [place] [address] Care Team Providers Care Tire Adjuster Name Role Phone Sari Hay MD Primary Care Provider [phone] Encounter Details Date Type Department Care Team (Late st Contact Info) Description 05/19/2011 External Results [place] [address] Provider, Scanning Social History Tobacco Use Types Packs/Day Years Used Date Smoking Tobacco: Never Assessed Sex and Gender Information Value Date Recorded Sex Assigned at Not on file Gender Identity Not on file Sexual Orientation Not on file documented as of this encounter Plan of Treatment Not on file documented as of this encounter Procedures Procedure Name Priority Date/Time Associated Diagnosis Comments ULTRASOUND Routine 05/13/2011 MAMMO GENERIC BILATERAL SCREENING Routine 05/09/2011 MAMMO GENERIC BILATERAL SCREENING Routine 11/16/2007 documented in this encounter Results * ULTRASOUND (05/13/2011) Historical Provider GENERAL SURGICAL ORDERABLES * *Mammo generic bilateral screening (05/09/2011) Anatomical Region Laterality Modality Breast Bilateral Mammography Historical Provider MD COBB MAMMO ORDERAB LES * *Mammo generic bilateral screening (11/16/2007) Anatomical Region Laterality Modality Breast Bilateral Mammography Historical Provider MD COBB MAMMO ORDERAB LES documented in this encounter Visit Diagnoses Not on filedocumented in this encounter Care Teams Tire Adjuster Relationship Specialty Start Date End Date Sari Hay MD [address] [place] [address] PCP - General 05/21/11 documented as of this encounter
--- OUTSIDE RECORDS SUMMARY | 2024-04-26 15:52 | XMS_ITS | Encounter Summary ---
Author Organization [facility] Address [facility] [place] [address] Care Team Providers Care Christian Education Director Name Role Phone Sari Hay MD Primary Care Provider [phone] Encounter Details Date Type Department Care Team (Late st Contact Info) Description 05/20/2011 Orders Only [address] [place] [address] Lisa Rinaldi MD [facility] [place] [address] Abnormal mammogram, unspecified (Primary Dx) Social History Tobacco Use Types Packs/Day Years Used Date Smoking Tobacco: Never Assessed Sex and Gender Information Value Date Recorded Sex Assigned at Not on file Gender Identity Not on file Sexual Orientation Not on file documented as of this encounter Plan of Treatment Not on file documented as of this encounter Results * Mammo breast US [...] imaging of the Right breast 05/13/11 from [facility]. Please see that report. ?? FINDINGS: The [...] diagnostic imaging ofthe Right breast 05/13/11 from [facility]. Please see that report. FINDINGS: The small [...] this encounter Visit Diagnoses Diagnosis Abnormal mammogram, unspecified- Primary Abnormal mammogram, unspecified documented in this encounter Care Teams Christian Education Director Relationship Specialty Start Date End Date Sari Hay MD [address] [place] [address] PCP - General 05/21/11 documented as of this encounter
--- OUTSIDE RECORDS SUMMARY | 2024-04-26 15:52 | XMS_ITS | Encounter Summary ---
Author Organization [facility] Address [address] [place] [address] Care Team Providers Care Brim Rounder Name Role Phone Unavailable Primary Care Provider Unavailabl e Encounter Details Date Type Department Care Team (Late st Contact Info) Description 09/09/2007 Results Only [facility] [address] [place] [address] Lina Reyes, MANAGER PEST [address] [facility] [address] [place] [address] Social History Tobacco Use Types Packs/Day Years Used Date Smoking Tobacco: Never Assessed Sex and Gender Information Value Date Recorded Sex Assigned at Not on file Gender Identity Not on file Sexual Orientation Not on file documented as of this encounter Plan of Treatment Not on file documented as of this encounter Procedures Procedure Name Priority Date/Time Associated Diagnosis Comments CYTOPATHOLOGY Routine 09/09/2007 0:00 EST documented in this encounter Results * CYTOPATHOLOGY (09/09/2007 0:00 EST) Pathology Report: CYTOPATHOLOGY REPORT Reports generated via electronic interface contain original data; however they are lacking the format of the original report. Caution should be taken when reading/interpreti ng unformatted reports. Name: ? SISSY EUGENE ? Accession #: ? [id number] : ? 1965 (Age: 41) ??F ?Collect Date: ? 09/09/2007 Location: ? [facility] ? Receive Date: ? 09/10/2007 Provider: ?LINA REYES MANAGER PEST Copy to: ? Specimen/Source: ?ThinPrep Pap Test, Cervix/Endocervix, processed on [employer] ThinPrep Imaging System, with manual evaluation Last Menstrual Period: ? 08/11 Other: ? HPVA - HPV testing requested if ASC-US on the current ThinPrep Pap test. ? SPECIMEN ADEQUACY ? Satisfactory for Evaluation - transformation zone component present GENERAL CATEGORIZATION ? Negative for Intraepithelial Lesion or Malignancy ? Document reviewed and electronically signed by: ? JOSHUA Funk(ASCP) ? Report Date: ??09/14/2007 10:03 End of Report [facility] GORE 09/09/2007 09/10/2007 Lina Reyes NP PATHOLOGY ORDERABLES DARCY GORE [address] [place] [address] documented in this encounter Visit Diagnoses Not on filedocumented in this encounter
--- OUTSIDE RECORDS SUMMARY | 2024-04-26 15:52 | XMS_ITS | Encounter Summary ---
Author Organization [facility] Address [address] [place] [address] Care Team Providers Care Deckhand Engineer Name Role Phone Sari Hay MD Primary Care Provider [phone] Encounter Details Date Type Department Care Team (Late st Contact Info) Description 10/01/2021 Lab Requisition [facility] Pathology & Laboratory Medicine - [address] [address] Outr Resulting Lab, Provider Social History Tobacco Use Types Packs/Day Years Used Date Smoking Tobacco: Never Assessed Interpersonal Safety Answer Date Record ed Physically Hurt Never 05/06/2020 Verbally Threaten Not on file 05/06/2020 Sex and Gender Information Value Date Recorded Sex Assigned at Not on file Gender Identity Not on file Sexual Orientation Not on file documented as of this encounter Plan of Treatment Not on file documented as of this encounter Procedures Procedure Name Priority Date/Time Associated Diagnosis Comments ZZCOVID-19 TEST [facility] PCR Today 09/30/2021 15:35 EST COVID-19 TESTING Routine 09/30/2021 15:3 5 EST documented in this encounter Results * COVID-19 TEST [facility] PCR (09/30/2021 15:35 EST) Swab 09/30/2021 15:3 5 EST 10/01/2021 17:37 EST Provider Outr Resulting Lab MICROBIOLOGY - GENERAL ORDERABLES [facility] [address] [place] [address] * COVID-19 TESTING (09/30/2021 15:35 EST) COVID-19 rt-PCR Result Negative Negative 10/02/2021 15:25 EST [facility] Comment: This test has not been FDA cleared or approved. This test has been authorized by FDA under an EUA for use by authorized laboratories. This test has been authorized only for detection of nucleic acid from 2019-nCoV, not for any other viruses or pathogens. This test is only authorized for the duration of the declaration that circumstances exist justifying the authorization of emergency use of in vitro diagnostic tests for detection and/or diagnosis of 2019-nCoV under section 564(b)(1) of Act, 21 U.S.C ?? 360bbb-3(b) (1), unless the authorization is terminated or revoked sooner. Negative results do not preclude 2019-nCoV infection and should not be used as the sole basis for treatment or other patient management decisions. Negative results must be combined with clinical observations, patient history, and epidemiological information. This test was developed and its performance characteristics determined by [facility]. It has not been cleared or approved by the US Food and Drug Administration. FDA does not require this test to go through premarket FDA review. This test is used for clinical purposes. It should not be regarded as investigational or for research. This laboratory is certified under the Clinical Laboratory Improvement Amendments (CLIA) as qualified to perform high complexity clinical laboratory testing. This test is based on the [facility] COVID-19 Emergency Use Authorization (EUA) assay, with minor modification as defined by the FDA Performed on the [employer] 7 Pro RT-PCR System. Performing Lab [facility] 10/02/2021 15:25 EST [facility] Swab 09/30/2021 15:3 5 EST 10/01/2021 17:37 EST Provider Outr Resulting Lab MICROBIOLOGY - GENERAL ORDERABLES [facility] [address] [place] [address] documented in this encounter Visit Diagnoses Not on filedocumented in this encounter Care Teams Deckhand Engineer Relationship Specialty Start Date End Date Sari Hay MD [address] [place] [phone] PCP - General 10/24/16 documented as of this encounter
--- OUTSIDE RECORDS SUMMARY | 2024-04-26 15:52 | XMS_ITS | Encounter Summary ---
Author Organization [facility] Address [address] [place] [address] Care Team Providers Care Lamp Mechanic Name Role Phone Unknown, Provider Primary Care Provider [phone] Encounter Details Date Type Department Care Team (Late st Contact Info) Description 05/21/2016 Results Only [facility] [phone] Roslyn Sky, KAMLA [address] [place], [place] [id number] Social History Tobacco Use Types Packs/Day Years Used Date Smoking Tobacco: Never Assessed Sex and Gender Information Value Date Recorded Sex Assigned at Not on file Gender Identity Not on file Sexual Orientation Not on file documented as of this encounter Plan of Treatment Not on file documented as of this encounter Procedures Procedure Name Priority Date/Time Associated Diagnosis Comments PAP TEST- RESULT ONLY Routine 05/21/2016 0:00 EDT documented in this encounter Results * PAP TEST- RESULT ONLY (05/21/2016 0:00 EDT) Pathology Report: CYTOPATHOLOGY REPORT Reports generated via electronic interface contain original data; however they are lacking the format of the original report. Caution should be taken when reading/interpreti ng unformatted reports. Name: ? SISSY EUGENE ? Accession #: ? [id number] ? : ? 1965 (Age: 50) ??F ?Collect Date: ? 05/21/2016 ? Location: ? [facility] ? Receive Date: ? 05/23/2016 ? Provider: ROSLYN SKY INFORMATION TECHNOLOGY PROJECT MANAGER Copy to: ? Final Report SPECIMEN ADEQUACY ? Satisfactory for Evaluation - transformation zone component present GENERAL CATEGORIZATION ? Negative for Intraepithelial Lesion or Malignancy ?? Last Menstrual Period: 5 years ago Menstrual/Pregnanc y Status: ??Menopausal Specimen/Source: ??Pap Test, Cervix/Endocervix, ThinPrep Imaging System with manual evaluation Document reviewed and electronically signed by: ? Tatum Vidal, [facility](ASCP) ? Report ??Date: 05/29/2016 11:09 HPV with Pap Test ? Date Ordered: ? 05/29/2016 ? Status: ?? Signed Out ?Date Complete: ? 05/30/2016 ? By: ??System Interface ? Date Reported: ? 05/30/2016 ? Interpretation RESULT: Negative for HPV. No E6 or E7 mRNA is detected from HPV types 16,18,31,33,35, 39,45,51,52,56,58, 59,66, and 68 by barkeep mediated amplification. Comments Document reviewed and electronically signed by: ? System Interface ? Report date: 05/30/2016 By the signature above, the attending physician certifies that he/she has personally conducted a gross and/or microscopic examination of the described specimens and rendered or confirmed the above diagnosis. End of Report [facility] 05/21/2016 05/23/2016 Roslyn Sky NP PATHOLOGY ORDERABLES [facility] [address] [place] [phone] documented in this encounter Visit Diagnoses Not on filedocumented in this encounter Care Teams Lamp Mechanic Relationship Specialty Start Date End Date Unknown, Provider, PCP - General 08/09/15 10/23/16 documented as of this encounter
--- OUTSIDE RECORDS SUMMARY | 2024-04-26 15:52 | XMS_ITS | Encounter Summary ---
Author Organization [facility] Address [address] [place] [address] Care Team Providers Care Senior Systems Architect Name Role Phone Sari Hay MD Primary Care Provider [phone] Encounter Details Date Type Department Care Team (Late st Contact Info) Description 08/25/2017 Results Only [facility] [phone] Roslyn Sky, KAMLA [address] [place] [address] Social History Tobacco Use Types Packs/Day Years Used Date Smoking Tobacco: Never Assessed Sex and Gender Information Value Date Recorded Sex Assigned at Not on file Gender Identity Not on file Sexual Orientation Not on file documented as of this encounter Plan of Treatment Not on file documented as of this encounter Procedures Procedure Name Priority Date/Time Associated Diagnosis Comments SURGICAL PATHOLOGY Routine 08/25/2017 9:25 EST documented in this encounter Results * SURGICAL PATHOLOGY (08/25/2017 9:25 EST) Pathology Report: SURGICAL PATHOLOGY REPORT Reports generated via electronic interface contain original data; however they are lacking the format of the original report. Caution should be taken when reading/interpreting unformatted reports. Name: ? SISSY EUGENE ? Accession #: ? [id number] ? : ? 1965 (Age: 51) ??F ? Collect Date: ? 08/25/2017 ? Location: ? [facility] ? Receive Date: ? 08/26/2017 ? Provider: MAN MICHEL MD Copy to: ROSLYN SKY INSPECTOR OF WEIGHTS AND MEASURES ? Final Pathologic Diagnosis: SKIN OF LEG, LEFT, PUNCH BIOPSY: - Dermatofibroma with subepidermal separation. ??See microscopic and comment. Comment: The combined histologic and immunophenotypic features are characteristic of a dermatofibroma with subepidermal separation. ??(Dr. Alvarado)/hugo Microscopic Description: Sections reveal a punch biopsy showing a spindle cell dermal proliferation composed of bland spindled to stellate cells with peripheral collagen entrapment. ??The overlying epidermis shows a subepidermal separation in the area of the spindle cell lesion. ??A panel of immunohistochemical stains was performed to characterize the lesion. ??A Factor XIII A (AC-1A1, Devens) stain is positive within the spindle cell infiltrate. ??Stains are negative for SOX-10 (EP268, [employer]) and P40 (BC28, Devens) helping to rule out a melanocytic and epithelial neoplasm, respectively. ??(Dr. Alvarado)/hugo NOTE: ??One or more of the reagents used in immunoperoxidase testing in this case may not have been cleared or approved by the U.S. Food and Drug Administration (FDA). ??The FDA has determined that such clearance or approval is not necessary. ??These tests are used for clinical purposes. ??They should not be regarded as investigational or for research. ??These reagents' performance characteristics have been determined by [facility]. ??The positive and negative controls worked appropriately. If immunoperoxidase staining has been performed on alcohol fixed cytology specimens, which has not been fully validated, the assays should be interpreted with caution and correlated with clinical data. ??This laboratory is certified under the Clinical Laboratory Improvement Amendments of 1988 (CLIA-88) as qualified to perform high complexity clinical laboratory testing. ? Document reviewed and electronically signed by: BECK ALVARADO MD Report ??Date: 08/31/2017 12:00 By the signature above, the attending physician certifies that he/she has personally conducted a gross and/or microscopic examination of the described specimens and rendered or confirmed the above diagnosis. Specimen(s) Received: 4.0 mm punch biopsy Clinical History: Nonhealing nodule left leg Gross Description: ? Received in formalin labelled with proper patient identification (initials M, C) and left leg is a punch biopsy of doherty-pink skin (0.4 cm diameter x 0.3 cm thickness). There is a central ill defined dohetry-brown macule (0.3 x 0.3 x 0.1 cm). The specimen is bisected and submitted entirely in 1. GANESH May (ASCP) 08/26/2017 9:57 AM End of Report [facility] 08/25/2017 9:25 EST 08/26/2017 9:25 EST Man Michel MD PATHOLOGY ORDERABLES Performing Organization Address City/State/[facility] Co de Phone Number [facility] [address] [place] [address] documented in this encounter Visit Diagnoses Not on filedocumented in this encounter Care Teams Senior Systems Architect Relationship Specialty Start Date End Date Sari Hay MD [address] [place] [phone] PCP - General 10/24/16 documented as of this encounter
--- OUTSIDE RECORDS SUMMARY | 2024-04-26 15:52 | XMS_ITS | Encounter Summary ---
Author Organization [facility] Address [address] [place] [address] Care Team Providers Care Refrigerated National Truck Driver Name Role Phone Unknown, Provider Primary Care Provider [phone] Encounter Details Date Type Department Care Team ([facility] st Contact Info) Description 10/22/2016 Results Only [facility] [phone] Konrad Arechiga MD [facility] [place] [address] Social History Tobacco Use Types Packs/Day Years Used Date Smoking Tobacco: Never Assessed Sex and Gender Information Value Date Recorded Sex Assigned at Not on file Gender Identity Not on file Sexual Orientation Not on file documented as of this encounter Plan of Treatment Not on file documented as of this encounter Procedures Procedure Name Priority Date/Time Associated Diagnosis Comments SURGICAL PATHOLOGY Routine 10/22/2016 20 :28 EST documented in this encounter Results * SURGICAL PATHOLOGY (10/22/2016 20:28 EST) Pathology Report: SURGICAL PATHOLOGY REPORT Reports generated via electronic interface contain original data; however they are lacking the format of the original report. Caution should be taken when reading/interpreting unformatted reports. Name: ? SISSY EUGENE ? Accession #: ? [id number] ? : ? 1965 (Age: 51) ??F ? Collect Date: ? 10/22/2016 ? Location: ? [facility] ? Receive Date: ? 10/22/2016 ? Provider: KONRAD ARECHIGA MD Copy to: CRISTY PACHECO MD ? Final Pathologic Diagnosis: SOFT TISSUE OF ANKLE, LEFT, MASS, EXCISION: - ??Adipose and fibrous tissue with extensive fat necrosis. See comment. Comment: ? Trench Pipe Layer slides of this case were reviewed at the intradepartmental consultation conference. ??Sections feature adipose and fibrous tissue with extensive fat necrosis. This may represent lipoma with superimposed fat necrosis. However, correlation with the clinical impression is necessary. Document reviewed and electronically signed by: NEVAEH DOBBINS MD Report ??Date: 10/27/2016 14:57 By the signature above, the attending physician certifies that he/she has personally conducted a gross and/or microscopic examination of the described specimens and rendered or confirmed the above diagnosis. Specimen(s) Received: Mass left ankle Clinical History: Painful L ankle mass; anterior L ankle, extrafascial Gross Description: ? Received in formalin labelled with proper patient identification (initials M, C) and mass left ankle are three soft rubbery nodular fragmented glistening tissues measuring 2.8 x 2.5 x 1.0 cm in aggregate. Sections through the largest tissue show an area of central opacification, induration, and hemorrhage. The remaining cut surfaces are homogeneous, glistening, and pale yellow. The specimens are entirely submitted in 1 and 2. GANESH Cyr (ASCP) 10/23/2016 7:36 AM End of Report [facility] 10/22/2016 20:2 8 EST 10/22/2016 20:28 EST Konrad Arechiga MD PATHOLOGY ORDERABLES [facility] [address] [place] [address] documented in this encounter Visit Diagnoses Not on filedocumented in this encounter Care Teams Refrigerated National Truck Driver Relationship Specialty Start Date End Date Unknown, Provider, PCP - General 08/09/15 10/23/16 documented as of this encounter
--- OUTSIDE RECORDS SUMMARY | 2024-04-26 15:52 | XMS_ITS | Clinical Summary ---
Author Organization [facility] Address [address] [place] [address] Care Team Providers Care Smash Hand Name Role Phone Sari Hay MD Primary Care Provider [phone] Social History Tobacco Use Types Packs/Day Years Used Date Smoking Tobacco: Never Assessed Interpersonal Safety Answer Date Record ed Physically Hurt Never 05/06/2020 Verbally Threaten Not on file 05/06/2020 Sex and Gender Information Value Date Recorded Sex Assigned at Not on file Gender Identity Not on file Sexual Orientation Not on file Plan of Treatment Health Maintenance Due Date Last Done Comments Hepatitis C Screen 1965 COVID-19 Vaccine (2022-24 season) 2023 RSV Immunization ( o r 60+ Years) (1 - 1-dose 60+ series) 2023 Care Teams Smash Hand Relationship Specialty Start Date End Date Sari Hay MD [address] [facility] [address] [place] [phone] PCP - General 10/24/16
--- OUTSIDE RECORDS SUMMARY | 2024-04-26 15:52 | XMS_ITS | Encounter Summary ---
Author Organization [facility] Address [address] [place] [address] Care Team Providers Care Manager Order Name Role Phone Unavailable Primary Care Provider Unavailabl e Encounter Details Date Type Department Care Team (Late st Contact Info) Description 05/02/2011 Results Only [facility] - [facility] [address] [place], [place] [id number] Jennifer Seymour NP [address] [place] [address] Social History Tobacco Use Types Packs/Day Years [...] Diagnosis Comments PAP TEST- RESULT ONLY Routine 05/02/2011 0:00 EDT documented in this encounter Results * PAP TEST- RESULT ONLY (05/02/2011 0:00 EDT) Pathology Report: CYTOPATHOLOGY REPORT ? Reports generated via electronic interface contain original data; ? however they are lacking the format of the original report. ? Caution should be taken when reading/interpreti ng unformatted reports. ? Name: ? SISSY EUGENE ? Accession #: ? [id number] ? : ? 1965 (Age: 45) ??F ?Collect Date: ? 05/02/2011 ? Location: ? [facility] ? Receive Date: ? 05/06/2011 ? Provider: JENNIFER SEYMOUR SURFACE SUPPLY BREATHING APPARATUS ? Copy to: ? Final Report ? SPECIMEN ADEQUACY ? Satisfactory for Evaluation ? - transformation zone component present ? GENERAL CATEGORIZATION ? Negative for Intraepithelial Lesion or Malignancy ? Last Menstural Period: 04/07/11 ? Specimen/Source: ??Pap Test, Cervix/Endocervix, ThinPrep Imaging System with ? manual evaluation ? Document reviewed and electronically signed by: ? Leslie Caceres, CT(ASCP)(IAC) ? Report ??Date: 05/07/2011 16:36 ? HPV with Pap Test ? Date Ordered: ? 05/07/2011 ? Status: ?? Signed Out ?Date Complete: ? 05/13/2011 ? By: ??System Interface ? Date Reported: ? 05/13/2011 ? Interpretation ? RESULT: Negative for HPV types 16, 18, 31, 33, 35, 39, 45, 51, 52, ? 56, 58, 59, and 68. ? NHPV2 ? Comments ? Document reviewed and electronically signed by: ? System Interface ? Report date: 05/13/2011 ? By the signature above, the attending physician certifies that he/she has ? personally conducted a gross and/or microscopic examination of the described ? specimens and rendered or confirmed the above diagnosis. ? End of Report ? [facility] 05/02/2011 05/06/2011 Jennifer Seymour SURFACE SUPPLY BREATHING APPARATUS PATHOLOGY ORDERABLES [facility] [address] [place] [address] documented in this encounter Visit Diagnoses Not on filedocumented in this encounter
--- OUTSIDE RECORDS SUMMARY | 2024-04-26 15:52 | XMS_ITS | Encounter Summary ---
Author Organization [facility] Address [address] [place] [address] Care Team Providers Care Field Director Name Role Phone Sari Hay MD Primary Care Provider [phone] Encounter Details Date Type Department Care Team (Latest Contact Info) Description 08/25/2017 18:38 EST - 08/25/2017 23:59 EST Hospital Encounter [address] [address] Unknown, Provider, Discharge Disposition: Home or Self Care Social History Tobacco Use Types Packs/Day Years Used Date Smoking Tobacco: Never Assessed Sex and Gender Information Value Date Recorded Sex Assigned at Not on file Gender Identity Not on file Sexual Orientation Not on file documented as of this encounter Discharge Disposition Disposition Code Departure Means Destination Home or Self Group Home documented in this encounter Plan of Treatment Not on file documented as of this encounter Visit Diagnoses Not on filedocumented in this encounter Care Teams Field Director Relationship Specialty Start Date End Date Sari Hay MD [address] [place] [phone] PCP - General 10/24/16 documented as of this encounter
--- OUTSIDE RECORDS SUMMARY | 2024-04-26 15:52 | XMS_ITS | Encounter Summary ---
Author Organization [facility] Address [address] [place] [address] Care Team Providers Care Utilization Specialist Name Role Phone Sari Hay MD Primary Care Provider [phone] Encounter Details Date Type Department Care Team (Latest Contact Info) Description 10/14/2022 Lab Requisition [facility] Pathology & Laboratory Medicine - [facility] [address] [place] [address] Alyx Bello, TAMIKA [address] [facility] [address] [place] [address] Encounter for general adult medical examination without abnormal findings; Encounter for screening for malignant neoplasm of cervix; Encounter for screening for human papillomavirus (HPV) Social History Tobacco Use Types Packs/Day Years [...] Name Priority Date/Time Associated Diagnosis Comments PAP TEST Today 10/13/2022 13:45 EST Encounter for general adult medical examination without abnormal findings Encounter for screening for malignant neoplasm of cervix Encounter for screening for human papillomavirus (HPV) HPV DNA DETECTION WITH GENOTYPING, PCR Today 10/13/2022 13:45 EST Encounter for general adult medical examination without abnormal findings Encounter for screening for malignant neoplasm of cervix Encounter for screening for human papillomavirus (HPV) documented in this encounter Results * HUMAN PAPILLOMAVIRUS (HPV) DETECTION-HIGH RISK TYPES (10/13/2022 13:45 EST) HPV other High Risk types, PCR Negative Negative 10/21/2022 18:53 [facility] Comment:No E6 or E7 mRNA is detected from HPV types 16,18,31,33,35,39,45,51,52,56,58,59,66, and 68 by resident medical officer mediated amplification. Papanicolaou smear specimen (specimen) CERVIX UTERI STRUCTURE / Unknown 10/13/2022 13:45 EST 10/20/2022 11:15 EST Alyx Bello ELECTRONICS INSTALLER MICROBIOLOGY - GENER AL ORDERABLES [facility] [address] [place] [address] * PAP TEST (10/13/2022 13:45 EST) Specimens A. Cervix and/or Endocervix , ThinPrep Imaging System with Manual Evaluation 10/21/2022 18:53 [facility] Specimen Adequacy Satisfactory for Evaluation - assessment of transformation zone component not applicable ( e.g. atrophy, vaginal sample, hysterectomy) 10/21/2022 18:53 [facility] General Categorization Negative for intraepithelial lesion or malignancy 10/21/2022 18:53 [facility] Attestation . 10/21/2022 18:53 [facility] at 1853 Clinical History SEE BELOW 10/21/19 23 18:53 [facility] HPV The result for the Human Papillomavirus (HPV) Detection-High Risk Types is Negative. No E6 or E7 mRNA is detected from HPV types 16,18,31,33,35,39 ,45,51,52,56,58,5 9,66, and 68 by resident medical officer mediated amplification.Lorie ting was performed on specimen [id number] and was resulted on 10/21/2022 1853 EST by JENNIFER, LAB INSTRUMENT RESULTS IN 10/21/2022 18:53 [facility] Performing Lab [facility] 10/21/2022 18:53 EST [facility] Scanned Images 10/21/2022 18:53 EST [facility] Papanicolaou smear specimen (specimen) CERVIX UTERI STRUCTURE / Unknown 10/13/2022 13:45 EST 10/14/2022 14:25 EST Alyx Bello ELECTRONICS INSTALLER PATHOLOGY ORDERABLES Performing Organization Address City/State/[facility] Co de Phone Number [facility] [address] [place] [address] documented in this encounter Visit Diagnoses Diagnosis Encounter for general adult medical examination without abnormal findings Unspecified general medical examination Encounter for screening for malignant neoplasm of cervix Screening for malignant neoplasm of the cervix Encounter for screening for human papillomavirus (HPV) Special screening examination for human papillomavirus (HPV) documented in this encounter Care Teams Utilization Specialist Relationship Specialty Start Date End Date Sari Hay MD [address] [place] [phone] PCP - General 10/24/16 documented as of this encounter
--- OUTSIDE RECORDS SUMMARY | 2024-04-26 15:52 | XMS_ITS | Referral Summary ---
Author Organization [facility] Address [address] [place] [address] Care Team Providers Care Screen And Cyclone Repairer Name Role Phone Sari Hay MD Primary Care Provider [phone] Social History Tobacco Use Types Packs/Day Years Used Date Smoking Tobacco: Never Assessed Interpersonal Safety Answer Date Record ed Physically Hurt Never 05/06/2020 Verbally Threaten Not on file 05/06/2020 Sex and Gender Information Value Date Recorded Sex Assigned at Not on file Gender Identity Not on file Sexual Orientation Not on file Plan of Treatment Not on file Care Teams Screen And Cyclone Repairer Relationship Specialty Start Date End Date Sari Hay MD [address] [place] [phone] PCP - General 10/24/16
--- OUTSIDE RECORDS SUMMARY | 2024-04-26 15:52 | XMS_ITS | Encounter Summary ---
Author Organization [facility] Address [facility] [place] [address] Care Team Providers Care Cash Posting Clerk Name Role Phone MendezNelly kearney Juan BEY Primary Care Provider [phone] Encounter Details Date Type Department Care Team (Latest Contact Info) Description 05/16/2011 3:45 PM EDT - 05/16/2011 11:59 PM EDT Hospital Encounter XRay at [address] [place] [address] [address], DR VYAS Discharge Disposition: Home Social History Tobacco Use Types Packs/Day Years Used Date Smoking Tobacco: Never Assessed Sex and Gender Information Value Date Recorded Sex Assigned at Not on file Gender Identity Not on file Sexual Orientation Not on file documented as of this encounter Plan of Treatment Not on file documented as of this encounter Procedures Procedure Name Priority Date/Time Associated Diagnosis Comments REQUEST FOR 2ND READ MAMMO Routine 05/16/2011 3:45 PM EDT documented in this encounter Results * REQUEST FOR 2ND READ MAMMO (05/16/2011 3:45 PM EDT) Anatomical Region Laterality Modality Other 05/16/2011 3:45 PM EDT Narrative 05/22/2011 11:11 AM EDT INTERPRETATION OF OUTSIDE MAMMOGRAMS (PERFORMED ON 05/13/11 AND 05/09/11) DATED 05/19/11: DIAGNOSTIC IMAGING SUMMARY: RIGHT BREAST LESION 1: ASSESSMENT IS INCOMPLETE (BIRADS Category 0). Finding: Mass. Size: 12mm. Location: 0700, 12cm from the nipple. Recommendation: Right breast ultrasound to further evaluate the nature of the neodensity in the Right breast. Given that ultrasound is somewhat kiln operator dependent and benefits from real time imaging, repeat ultrasound of the Right breast would be helpful. Additional mammographic imaging may be performed of the Right breast at the discretion of the radiologist. LEFT BREAST: NEGATIVE (BIRADS Category 1). Preliminary report E-mailed to JANEE Hughes on 05/19/11. NARRATIVE: CLINICAL INDICATION: I have been asked to consult on this patient by JANEE Hughes because she believes a review of this study may change or alter the care of this patent. History of Probably Benign, BIRADS Category 3 RIGHT breast for a small density in the inferior lateral Right breast for which a three to four month follow-up was recommended. TECHNIQUE: Bilateral mammograms from [facility] dated 05/09/11, diagnostic Right breast mammogram dated 05/13/11; ??comparisons to 11/16/07 FINDINGS: This is a (BIRADS Category 0) INCOMPLETE Right breast for a new 12mm lobulated mass in the lower, outer Right breast. The mass persists on additional spot compression and 90-degree medial lateral view. ??Magnification view of the mass performed for a question of associated microcalcifications shows no evidence of worrisome calcifications. By report, ultrasound of the Right breast shows no cyst or mass. The remainder of the Right breast is unremarkable. This is a (BIRADS Category 1) NEGATIVE Left mammogram. There is an unremarkable fibroglandular pattern in the Left breast which is stable compared to prior studies. The breasts are of scattered density. Procedure Note Lisa Rinaldi MD - 05/22/2011 INTERPRETATION OF OUTSIDE MAMMOGRAMS (PERFORMED ON 05/13/11 AND 05/09/11)DATED 05/19/11: DIAGNOSTIC IMAGING SUMMARY: RIGHT BREAST LESION 1: ASSESSMENT IS INCOMPLETE (BIRADS Category 0). Finding: Mass. Size: 12mm. Location: 0700, 12cm from the nipple. Recommendation: Right breast ultrasound to further evaluate the nature ofthe neodensity in the Right breast. Given that ultrasound is somewhat kiln operator dependent and benefits from real time imaging, repeat ultrasound of theRight breast would be helpful. Additional mammographic imaging may be performedof the Right breast at the discretion of the radiologist. LEFT BREAST: NEGATIVE (BIRADS Category 1). Preliminary report E-mailed to JANEE Hughes on 05/19/11. NARRATIVE: CLINICAL INDICATION: I have been asked to consult on this patient by JANEE Hughes because she believes a review of this study may change oralter the care of this patent. History of Probably Benign, BIRADS Category 3RIGHT breast for a small density in the inferior lateral Right breast for whicha three to four month follow-up was recommended. TECHNIQUE: Bilateral mammograms from [facility] dated 05/09/11, diagnostic Rightbreast mammogram dated 05/13/11; comparisons to 11/16/07 FINDINGS: This is a (BIRADS Category 0) INCOMPLETE Right breast for a dez02kc lobulated mass in the lower, outer Right breast. The mass persists on additional spot compression and 90-degree medial lateral view.Magnification view of the mass performed for a question of associatedmicrocalcifications shows no evidence of worrisome calcifications. By report, ultrasound of the Right breast shows no cyst or mass. The remainder of the Right breast is unremarkable. This is a (BIRADS Category 1) NEGATIVE Left mammogram. There is anunremarkable fibroglandular pattern in the Left breast which is stable compared toprior studies. The breasts are of scattered density. Nelly Mendez APRN IMG OUTSIDE INTERP RETATION ORDERABLES documented in this encounter Visit Diagnoses Not on filedocumented in this encounter Care Teams Cash Posting Clerk Relationship Specialty Start Date End Date Nelly Mendez APRN [phone] [place] [address] PCP - General 05/15/11 05/20/11 documented as of this encounter
[2024-04-26 20:09] LABS: Abs Immature Grans 0.03 10^3/uL (0.0-0.06); Absolute Basophil Count 0.07 10^3/uL (0.0-0.2); Absolute Eosinophil Count 0.21 10^3/uL (0.0-0.7); Absolute Lymphocyte Count 2.12 10^3/uL (1.2-3.4); Basophils % 1.1 %; Eosinophils % 3.4 %; HCT 44.4 % (36.0-46.0); HGB 14.8 g/dL (11.2-15.7); Immature Grans % 0.5 %; MCH 29.2 pg (27.0-33.0); MCHC 33.3 % (32.0-36.0); MCV 88 fL (80-95); MPV 9.9 fL (8.0-11.0); Monocytes % 9.6 %; Neutrophils % 51.4 %; Platelet Count 298 10^3/uL (130-400); RBC 5.06 10^6/uL (3.93-5.22); RDW 12.8 % (11.7-14.6); RDW-SD 41.1 fL; WBC 6.23 10^3/uL (4.4-10.8)
[2024-04-26 20:32] LABS: ALT 58 U/L (14-59); AST 36 U/L (15-37); Albumin 4.1 g/dL (3.4-5.0); Alkaline Phosphatase 138 U/L (46-116); Anion Gap 10.9 mmol/L (3-11); BUN 19 mg/dL (7-18); Bilirubin, Total 0.69 mg/dL (0.2-1.0); CO2 26.1 mmol/L (21.0-32.0); CREATININE 0.9 mg/dL (0.55-1.02); Calcium 9.8 mg/dL (8.5-10.1); Calculated LDL 160 mg/dL (<100); Chloride 106 mmol/L (98-107); Cholesterol 277 mg/dL (<200); Estimated GFR 73.19 (mL/min/1.73m2); Glucose 112 mg/dL (74-106); HDL Cholesterol 72 mg/dL (40-60); Potassium 4.1 mmol/L (3.5-5.1); Sodium 143 mmol/L (136-145); TSH 1.56 uIU/Ml (0.36-3.74); Total Protein 7.3 g/dL (6.4-8.2); Triglyceride 229 mg/dL (<150)
[2024-04-26 21:03] LABS: FREE T4 1.01 ng/dL (0.76-1.46)
[2024-04-26 21:20] LABS: Hemoglobin A1C 5.7 % (<5.7)
== END 2024-04-26 15:46 | disposition home or self-care (01) ==
LOC: NCHCN 15:45
PROVIDERS: Visit Provider Nurse Practitioner Family
DX: I10 Essential (primary) hypertension (principal); R53.83 Other fatigue; E78.5 Hyperlipidemia, unspecified; E66.01 Morbid (severe) obesity due to excess calories; Z68.41 Body mass index [BMI] 40.0-44.9, adult; R73.09 Other abnormal glucose
CPT/HCPCS: 80053; 80061; 83036; 84439; 84443; 85025

== ENCOUNTER 2024-05-09 04:21 | Outpatient (CLI) | payer BC, SELFPAY ==
--- OUTSIDE RECORDS SUMMARY | 2024-05-09 04:23 | XMS_ITS | Encounter Summary ---
Author Organization Formerly [facility], [facility] Address [facility] [place] [address] Care Team Providers Care Branch Or Department Chief Librarian Name Role Phone Sari Hay MD Primary Care Provider [phone] Encounter Details Date Type Department Care Team (Late st Contact Info) Description 10/07/2023 10:15 AM EST - 10/07/2023 11:59 PM [facility] Hospital Encounter XRay at [address] [place] [address] Rod Valdez MD [facility] [place] [address] S/P revision of total knee, left; Presence [...] who have questions please contact the health palliative care specialist that requested your imaging first. ? Narrative [...] patients who have questions please contactthe health palliative care specialist that requested your imaging first. Rod Valdez MD IMG DX ORDERABLES documented in this encounter Visit Diagnoses Diagnosis S/P revision of total knee, left Presence of right artificial knee joint Knee joint replacement by other means documented in this encounter Care Teams Branch Or Department Chief Librarian Relationship Specialty Start Date End Date Sari Hay MD [address] [place] [address] PCP - General 05/21/11 documented as of this encounter
--- OUTSIDE RECORDS SUMMARY | 2024-05-09 04:23 | XMS_ITS | Encounter Summary ---
Author Organization [facility] Address [facility] [place] [address] Care Team Providers Care Pipe Bender Name Role Phone Sari Hay MD Primary Care Provider [phone] Reason for Visit * Reason Onset Date Comments Questions 07/03/2022 Encounter Details Date Type Department Care Team (Late st Contact Info) Description 07/03/2022 Telephone [place] [address] Rod Valdez MD [facility] [place] [address] Questions Social History Tobacco Use Types Packs/Day [...] irritation Best number to reach the caller: [phone] documented in this encounter Plan of Treatment Not on file documented as of this encounter Visit Diagnoses Not on filedocumented in this encounter Care Teams Pipe Bender Relationship Specialty Start Date End Date Sari Hay MD [address] [place] [address] PCP - General 05/21/11 documented as of this encounter
--- OUTSIDE RECORDS SUMMARY | 2024-05-09 04:23 | XMS_ITS | Encounter Summary ---
Author Organization [facility] Address [facility] [place] [address] Care Team Providers Care Restaurant Kitchen Manager Name Role Phone Sari Hay MD Primary Care Provider [phone] Reason for Visit * Reason Onset Date Comments Medication Refill 05/02/2022 Encounter Details Date Type Department Care Team (Late st Contact Info) Description 05/02/2022 [place] [address] Rod Valdez MD [facility] DR ORTHOPAEDIC SURGERY [place] [id number] Presence of right artificial knee joint Social [...] Notes * Telephone Encounter - Nicky Guadalupe, [facility] - 05/05/2022 9:00 AM EDT Images [...] Requested Prescription to be sent electronically to [facility] (location). Prescription prepped and pended for Brandon (provider) review. The patient knows how to contact orthopaedics if any further questions or concerns occur. documented in this encounter Plan of Treatment Not on file documented as of this encounter Visit Diagnoses Diagnosis Presence of right artificial knee joint Knee joint replacement by other means documented in this encounter Care Teams Restaurant Kitchen Manager Relationship Specialty Start Date End Date Sari Hay MD [address] [place] [address] PCP - General 05/21/11 documented as of this encounter
--- OUTSIDE RECORDS SUMMARY | 2024-05-09 04:23 | XMS_ITS | Encounter Summary ---
Author Organization [facility] Address [facility] [place] [address] Care Team Providers Care Assistant Professor Of Music Name Role Phone Sari Hay MD Primary [...] on filedocumented in this encounter Care Teams Assistant Professor Of Music Relationship Specialty Start Date End Date Sari Hay MD [address] [place] [address] PCP - General 05/21/11 documented as of this encounter
--- OUTSIDE RECORDS SUMMARY | 2024-05-09 04:23 | XMS_ITS | Encounter Summary ---
Author Organization [facility] Address [facility] [place] [address] Care Team Providers Care Apparel Rental Clerk Name Role Phone Sari Hay MD Primary Care Provider [phone] Encounter Details Date Type Department Care Team (Late st Contact Info) Description 04/23/2022 12:14 PM EDT - 04/23/2022 11:59 PM EDT Hospital Encounter XRay at [address] [place] [address] Rod Valdez MD [facility] [place] [address] Primary osteoarthritis of right knee; Pain of [...] * XR Knee Standing Alignment AP Lat [place] Right (04/23/2022 12:50 PM EDT) Anatomical Region Laterality Modality Knee Right Digital Radiogra phy Impressions 04/23/2022 1:16 PM EDT Uncomplicated right TKA. Thank you for letting us participate in the care of this patient. ??If you are a health care provider and have any questions regarding this report, please contact the number below. ??For patients who have questions please contact the health respiratory care practitioner that requested your imaging first. ? Narrative 04/23/2022 1:16 PM EDT EXAMINATION: XR [...] patients who have questions please contactthe health respiratory care practitioner that requested your imaging first. Rod Valdez MD IMG DX ORDERABLES documented in this encounter Visit Diagnoses Diagnosis Primary osteoarthritis of right knee Primary localized osteoarthrosis, lower leg Pain of right lower extremity documented in this encounter Care Teams Apparel Rental Clerk Relationship Specialty Start Date End Date Sari Hay MD [address] [place] [address] PCP - General 05/21/11 documented as of this encounter
--- OUTSIDE RECORDS SUMMARY | 2024-05-09 04:23 | XMS_ITS | Encounter Summary ---
[place] [address] Care Team Providers Care Stem Sizer Name Role Phone Sari Hay MD Primary Care Provider [phone] Reason for Visit * Reason Onset Date Comments Medication Refill 09/30/2022 Encounter Details Date Type Department Care Team (Late st Contact Info) Description 09/30/2022 Refill [place] [address] Frankie Sun, RMA S/P revision of total [...] means documented in this encounter Care Teams Stem Sizer Relationship Specialty Start Date End Date Sari Hay MD [address] [place] [address] PCP - General 05/21/11 documented as of this encounter
--- OUTSIDE RECORDS SUMMARY | 2024-05-09 04:23 | XMS_ITS | Encounter Summary ---
Author Organization [facility] Address [facility] [place] [address] Care Team Providers Care Machine Engraver Name Role Phone Sari Hay MD Primary Care Provider [phone] Reason for Visit * Reason Comments Follow Up Surgery R TKA 03-21-22 CONT P AIN, LEFT KNEE PAIN Encounter Details Date Type Department Care Team (Late st Contact Info) Description 10/07/2023 11:30 AM EST Office [place] [address] Rod Valdez MD [facility] [place] [address] S/P revision of total knee, left; Presence [...] 10/07/2023 11:30 AM EST Arthroplasty/Orthopaedic History: 02/10/19 ([place]) LEFT TKA revision, joint infection 03/14/21 ([place]) LEFT TKA revision, aseptic loosening 03/21/22 ([place]) RIGHT TKA HPI: Sissy Eugene is a [...] periprosthetic complication. Questionnaire Responses: 10/06/2023 8:[address] [facility] Surgical Postop Visit KOOS JR Scores 63.78 10/06/2023 8:00 PM [facility] Response KOOS JR Scores 63.78 10/06/2023 8:00 PM [facility]ine [facility] Response KOOS JR Scores 63.78 ASSESSMENT/PLAN: Ms. [...] means documented in this encounter Care Teams Machine Engraver Relationship Specialty Start Date End Date Sari Hay MD [facility] [address] [place] [address] PCP - General 05/21/11 documented as of this encounter
--- OUTSIDE RECORDS SUMMARY | 2024-05-09 04:23 | XMS_ITS | Encounter Summary ---
Author Organization [facility] Address [facility] [place] [address] Care Team Providers Care Channel Cementer Outsole Machine Name Role Phone Sari Hay MD Primary Care Provider [phone] Encounter Details Date Type Department Care Team (Late st Contact Info) Description 09/22/2023 Orders [place] [address] Rod Valdez MD [facility] [place] [address] S/P revision of total knee, left; Presence [...] means documented in this encounter Care Teams Channel Cementer Outsole Machine Relationship Specialty Start Date End Date Sari Hay MD [facility] [address]NA [address] [place], [place] [id number] PCP - General 05/21/11 documented as of this encounter
--- OUTSIDE RECORDS SUMMARY | 2024-05-09 04:23 | XMS_ITS | Clinical Summary ---
Author Organization [facility] Address [facility] [place] [address] Care Team Providers Care Sample Case Porter Name Role Phone Sari Hay MD Primary Care Provider [phone] Allergies Active Allergy Reactions Criticality Noted Date [...] 01/20/2022 S/P revision of total knee, left [place] 03/14/21 Closed fracture of distal en d [...] history exists Medical Devices Implanted Type Area Supervisor Nuclear Medicine Device Identifier Shelf Expiration Date Model / Serial / Lot Cement Bone High Viscosity 40gm Gentamicin Single Dose Pmma ([id number]) - [id number] Implanted:Qty: 1 on 03/14/2021 by Rod Valdez MD at [facility] IMPLANTS Left: Knee [employer] [facility] [employer] [id number] 06/04/2022 5450-35-500 / / [id number] Cement Bone High Viscosity 40gm Gentamicin Single Dose Pmma ([id number]) - [id number] Implanted:Qty: 1 on 03/14/2021 by Rod Valdez MD at [facility] IMPLANTS Left: Knee [employer] [id number] 10/04/2021 5450-35-500 / / [id number] Insert Tibial 12mm Sz 4 Rt Fix Poly Gmk E Cross ([id number]) (Autoreq) - [id number] Implanted:Qty: 1 on 03/21/2022 by Rod Valdez MD at [facility] IMPLANTS Right: Knee [employer] [id number] 10/18/2025 02.12.R8652UG / / Comp Femoral Knee Sz 4+ Right Agusto Ps Cocr (9986513) (Autoreq) - [id number] Implanted:Qty: 1 on 03/21/2022 by Rod Valdez MD at [facility] IMPLANTS Right: Knee [employer] - [employer] [place] [id number] 09/30/2026 02.12.0024R / / [id number] Cement Bone Medium Viscosity 40gm Single Dose Pmma Smartset (6314237) (Autoreq) - [id number] Implanted:Qty: 2 on 03/21/2022 by Rod Valdez MD at [facility] IMPLANTS Right: Knee [employer] [facility] 09/03/2023 [id number] / / [id number] Comp Patellar Knee Size 2 Resurfacing Uhmwpe Gmk E Cross (1176064) (Autoreq) - [id number] Implanted:Qty: 1 on 03/21/2022 by Rod Valdez MD at [facility] IMPLANTS Right: Knee [employer] [place] [id number] 09/30/2025 02.12.E002RP / / [id number] Baseplate Tibial Sz 4 Right Agusto Cocr Gmk ([id number]) (Autoreq) - [id number] Implanted:Qty: 1 on 03/21/2022 by Rod Valdez MD at [facility] IMPLANTS Right: Knee [employer] [id number] 09/05/2026 02.07.1204R / / [id number] Persona Vivacit-E Highly Crosslinked Polyethylene Posterior Stabilized Left Implanted:Qty: 1 on 02/10/2019 by Rod Valdez MD at [facility] Left: Knee ISA BIOMET - [id number] 08/04/2023 [id number] Isa Persona Stem Extension Implanted:Qty: 1 on 03/14/2021 by Rod Valdez MD at [facility] Left: Knee [id number] 05/08/2030 [id number] / / [id number] Isa Persona Left Ps Poly 12mm Implanted:Qty: 1 on 03/14/2021 by Rod Valdez MD at [facility] Left: Knee [employer] - [id number] 01/02/2022 [id number] / / [id number] Isa Persona Fixed Tibia Left Size F Implanted:Qty: 1 on 03/14/2021 by Rod Valdez MD at [facility] Left: Knee [employer] - [id number] 01/02/2031 [id number] / / [id number] Procedures Procedure Name Priority Date/Time Associated Diagnosis Comments BASIC METABOLIC PANEL Routine 03/12/2022 10:23 AM EDT Primary osteoarthritis of right knee Pain of right lower extremity MAMMO GENERIC BILATERAL SCREENING Routine 05/09/2011 from Last 3 Months or Most Recently Relevant to Health Maintenance Results * Basic Metabolic Panel (non-fasting) (03/12/2022 10:23 AM EDT) Glucose 95 65 - 199 mg/dL [facility] Comment:Diabetes: >=200 mg/d L plus symptoms Blood Urea Nitrogen 18 8 - 18 mg/dL [facility] Creatinine 0.86 0.70 - 1.20 mg/dL [facility] Sodium 142 135 - 145 mmol/L [facility] Potassium 4.4 3.5 - 5.0 mmol/L [facility] Comment: Please note: ??Patients with WBC >100,000 may have falsely elevated Potassium levels. ??For accurate Potassium quantification in these patients send serum separator tube (gold top) for subsequent determinations. ??Contact the Clinical Chemistry Laboratory if there are any questions. Chloride 106 98 - 107 mmol/L [facility] Carbon Dioxide 27 22 - 31 mmol/L [facility] Anion Gap 9 5 - 15 mmol/L [facility] Calcium 9.9 8.5 - 10.5 mg/dL [facility] Est Glomerular Filtration Rate 74 >=60 mL/min/1. 73 m?? [facility] Comment: This patient? s estimated [...] In Lab Rod Valdez MD CHEMISTRY ORDERABLES [facility] [place] [address] * *Mammo generic bilateral screening (05/09/2011) Anatomical Region Laterality Modality Breast Bilateral Mammography Historical Provider MD COBB MAMMO ORDERAB LES from Last 3 Months or Most Recently Relevant to Health Maintenance Advance Directives Documents on File Type Date Recorded Patient Valuation Consultant Expl anation Personal Valuation Consultant 03/06/2021 2:44 PM * Attempt Cardiopulmonary Resuscitation [...] capacity to make decision: Yes Care Teams Sample Case Porter Relationship Specialty Start Date End Date Sari Hay MD [facility] [address] [place] [address] [facility] General 05/21/11
--- OUTSIDE RECORDS SUMMARY | 2024-05-09 04:24 | XMS_ITS | Encounter Summary ---
Author Organization [facility] Address [facility] [place] [address] Care Team Providers Care Printing Technician Name Role Phone Sari Hay MD Primary Care Provider [phone] Reason for Visit * Reason Comments Follow-up XR03/14/21 REVISIO N LEFT TKA Encounter Details Date Type Department Care Team (Late st Contact Info) Description 04/11/2021 11:30 AM EDT Office [place] [address] Teressa Taylor PA [facility] [place] [address] S/P revision of total knee, left Social [...] 11:30 AM EDT Arthroplasty/Orthopaedic History: 1. 5 ([place]) LEFT TKA revision, joint infection 2. 03/14/21 ([place]) LEFT TKA revision, aseptic loosening. Femur and [...] subsidence, loosening, or periprosthetic complication. Questionnaire Responses: [facility] Surgical Postop Visit 03/06/2021 PROMIS-10 General Health [...] - Rate overall condition today - [facility] Response 03/06/2021 KOOS JR Scores 54.84 Spine [facility] Response 03/06/2021 KOOS JR Scores 54.84 ASSESSMENT/PLAN: Ms. Eugene is a 55 y.o. year old female [...] left documented in this encounter Care Teams Printing Technician Relationship Specialty Start Date End Date Sari Hay MD [address] [place] [address] PCP - General 05/21/11 documented as of this encounter
--- OUTSIDE RECORDS SUMMARY | 2024-05-09 04:24 | XMS_ITS | Encounter Summary ---
Author Organization [facility] [place] [address] Care Team Providers Care Global Compensation Director Name Role Phone Sari Hay MD Primary Care Provider [phone] Reason for Visit * Reason Onset Date Comments Medication Refill 03/27/2022 Encounter Details Date Type Department Care Team (Late st Contact Info) Description 03/27/2022 [place] [address] Sarahy Hernandez, RN Presence of right artificial [...] Requested Prescription to be sent electronically to [facility](location). Prescription prepped and pended for Marissa Taylor's (provider) review. The patient knows how to contact orthopaedics if any further questions or concerns occur. Sarahy Hernandez RN [facility] Ortho Team * Telephone Encounter - Sarahy Hernandez RN - 03/27/2022 1:06 PM EDTFrom: Sissy Eugene To: Office of Mayuri Pearce MD Sent: 03/27/2022 10:58 AM EDT Subject: Medication Renewal Request Refills have been requested for the following medications: oxyCODONE (Roxicodone) 5 mg Tablet [Mayuri Pearce] Preferred pharmacy: [id number] - [address] Delivery method: Pickup documented in this encounter Plan of Treatment Not on file documented as of this encounter Visit Diagnoses Diagnosis Presence of right artificial knee joint Knee joint replacement by other means documented in this encounter Care Teams Global Compensation Director Relationship Specialty Start Date End Date Sari Hay MD [address] [place] [address] PCP - General 05/21/11 documented as of this encounter
--- OUTSIDE RECORDS SUMMARY | 2024-05-09 04:24 | XMS_ITS | Encounter Summary ---
Author Organization [facility] Address [facility] [place] [address] Care Team Providers Care Dog Control Officer Name Role Phone Sari Hay MD Primary Care Provider [phone] Reason for Referral * Home Health Care (Routine) - Closed Specialty Diagnoses / Procedures Referred By Emmanuel cisneros Referred To Contact Diagnoses Primary osteoarthritis of right knee Rod Valdez MD [facility] [address] ORTHOPAEDIC [place] [address] [facility] & [address] [place] [address] Referral ID Status Reason Start Date Expiration Date V isits Requested Visits Authorized [id number] Closed Consult, Test & Treat 03/21/2022 09/17/2022 999 999 Reason for Visit * Auth/Cert Specialty Diagnoses / Procedures Referred By Emmanuel cisneros Referred To Contact Diagnoses Right Knee DJD Procedures PRO TOTAL KNEE ARTHROPLASTY TOTAL KNEE ARTHROPLASTY (WRVU 20.72) MODIFIER MEDACTA-TOTAL KNEE Referral ID Status Reason Start Date Expiration Date Visits Re quested Visits Authorized [id number] 1 1 Encounter Details Date Type Department Care Team (Late st Contact Info) Description 03/21/2022 6:07 AM EDT - 03/21/2022 1:44 PM EDT Hospital Encounter PACU at [address] [phone] Rod Valdez MD [facility] [address] ORTHOPAEDIC [place] [address] Primary osteoarthritis of right knee Discharge Disposition: [...] bowel movement. You can also take an tteo-exq-yzjndqh medication, Miralax if needed to combat constipation. [...] as much as possible. Call your doctor ([phone]) if you develop: Fever greater than 100.5 Severe nausea or vomiting Increasing pain that is not controlled by pain medications Increasing redness, swelling, or drainage from incisions Change in sensation FOLLOW-UP APPOINTMENTS: 1. You will have follow-up appointments at [facility] as indicated below in Future Appointment and Orders. 2. You will need to have x-rays prior to your follow-up appointment on 04/23/22. Please come to Radiology, desk 3T, 1 hour BEFORE that appointment for those x-rays. Future Appointments Date Time Provider Department Center 04/23/2022 12:45 PM [facility] DX ROOM 2 MH Xray [facility] Rad 04/23/2022 1:30 PM Rod Valdez MD [facility] ORTH 3C [facility] If you have questions or concerns: Thursday [...] They will be seen and evaluated by [facility] PT prior to discharge. Their post-discharge PT planis: [facility] PT. A list of Home Health Agencies/DME Vendors which serve the geographical area which the patient resides, was made available to patient/hr representative. They have requested a referral to [facility]. No perceived barriers to same-day discharge. Gris Gallagher RN [facility] 03/19/22 11:54 AM documented in this encounter [...] EACH performed by Stanley Koo MD at [facility] OSC ??? PRO REVISE KNEE JOINT REPLACE, 1 PART Left 02/10/2019 @TOTAL KNEE REVISION ARTHROPLASTY, ONE COMPONENT (WRVU 21.12) performed by Rod Valdez MD [facility] MAIN OR ??? PRO REVISE KNEE JOINT REPLACE, 1 PART Left 03/14/2021 TOTAL KNEE REVISION ARTHROPLASTY, ONE COMPONENT (WRVU 21.12) performed by Rod Valdez MD at [facility] MAIN OR ??? PRO XFER SINGLE SUPERFICI LOW LEG TENDON Left 10/01/2015 TENDON TRANSFER, ANKLE, SUPERFICIAL performed by Stanley Koo MD at [facility] OSC ??? 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 Goals: Short Term Goals: Longterm Goals: Plan: Therapy Frequency (PT): once for [...] EACH performed by Stanley Koo MD at [facility] OSC ??? PRO REVISE KNEE JOINT REPLACE, 1 PART Left 02/10/2019 @TOTAL KNEE REVISION ARTHROPLASTY, ONE COMPONENT (WRVU 21.12) performed by Rod Valdez MD [facility] MAIN OR ??? PRO REVISE KNEE JOINT REPLACE, 1 PART Left 03/14/2021 TOTAL KNEE REVISION ARTHROPLASTY, ONE COMPONENT (WRVU 21.12) performed by Rod Valdez MD at [facility] MAIN OR ??? PRO XFER SINGLE SUPERFICI LOW LEG TENDON Left 10/01/2015 TENDON TRANSFER, ANKLE, SUPERFICIAL performed by Stanley Koo MD at [facility] OSC ??? 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 Goals: Manager Medical Device Goals - OT Longterm Goals to be met by: 03/21/22 Patient [...] Clinical Decision Making Complexity Score: Low - 36353 Timed Code Treatment: 30 minutes Untimed CodeTreatment: 10 minutes Total Treatment Time: 40 minutes Julia Espinal OT Occupational Therapy Inpatient Rehabilitation Department * Op Note - Rod Valdez MD - 03/21/2022 8:06 AM EDT [facility] Operative Note [address] Patient Name: Sissy Eugene : [id number] MR#: [id number] Case Date: 03/21/2022 Case Scheduled Time: 729 [...] Soft tissue resection and balancing: The laminar case management specialist was used to elevate the femur and [...] Implant Name Type Inv. Item Serial No. Steam Heating Installer Lot No. LRB No. Used Action CEMENT BONE MEDIUM VISCOSITY 40GM SINGLE DOSE PMMA SMARTSET ([id number]) (AutoReq) - [id number] IMPLANTS CEMENT BONE MEDIUM VISCOSITY 40GM SINGLE DOSE PMMA SMARTSET ([id number]) (AutoReq) [employer] [facility] [id number] Right 2 Implanted COMP PATELLAR KNEE SIZE 2 RESURFACING UHMWPE GMK E CROSS ([id number]) (AUTOREQ) - [id number] IMPLANTS COMP PATELLAR KNEE SIZE 2 RESURFACING UHMWPE GMK E CROSS ([id number]) (AutoReq) [employer]ACT[employer] [place] - MEDACTA [place] Right 1 Implanted BASEPLATE TIBIAL SZ 4 RIGHT JULIA COCR GMK ([id number]) (AUTOREQ) - [id number] IMPLANTS BASEPLATE TIBIALSZ 4 RIGHT JULIA COCR GMK ([id number]) (AutoReq) [employer]ACT[employer] [place] - [place] [place] [id number] Right 1 Implanted INSERT TIBIAL 12MM SZ 4 RT FIX POLY GMK E CROSS ([id number]) (AUTOREQ) - [id number] IMPLANTS INSERT TIBIAL 12MM SZ 4 RT FIX POLY GMK E CROSS ([id number]) (AutoReq) [employer]ACT[employer] [place] - MEDACT[employer] [place] Right 1 Implanted COMP FEMORAL KNEE SZ 4+ RIGHT JULIA PS COCR ([id number]) (AUTOREQ) - [id number] IMPLANTS COMP FEMORAL KNEE SZ 4+ RIGHT JULIA PS COCR ([id number]) (AutoReq) MEDACTA [facility] - MEDACTA [id number] Right 1 Implanted documented in this encounter [...] Condyle & Plateau Medial & Lat Compartments (42600) 03/21/2022 7:44 AM EDT Right Knee DJD [...] RN) documented in this encounter Care Teams Dog Control Officer Relationship Specialty Start Date End Date Sari Hay MD [facility] [address] [place] [address] PCP - General 05/21/11 documented as of this encounter
--- OUTSIDE RECORDS SUMMARY | 2024-05-09 04:24 | XMS_ITS | Encounter Summary ---
Author Organization [facility] Address [facility] [place] [address] Care Team Providers Care Assistant Printer Floor Covering Name Role Phone Sari Hay MD Primary Care Provider [phone] Encounter Details Date Type Department Care Team (Late st Contact Info) Description 04/17/2022 Telephone Orthopaedics at [address] [phone] Rod Valdez MD [facility] [place] [address] Social History Tobacco Use Types Packs/Day Years [...] filedocumented in this encounter Care Teams Assistant Printer Floor Covering Relationship Specialty Start Date End Date Sari Hay MD [facility] [address] [place] [address] PCP - General 05/21/11 documented as of this encounter
--- OUTSIDE RECORDS SUMMARY | 2024-05-09 04:24 | XMS_ITS | Encounter Summary ---
Author Organization [facility] [place] [address] Care Team Providers Care Podiatric Technician Name Role Phone Sari Hay MD Primary Care Provider [phone] Reason for Visit * Reason Comments Joint Swelling R knee Encounter Details Date Type Department Care Team (Late st Contact Info) Description 01/03/2022 6:01 PM EDT - 01/03/2022 8:16 PM EDT [place] [phone] Acute pain of left knee Discharge Disposition: [...] Care Everywhere. * Knee Pain or Injury (Ivorian) documented in this encounter Medications at Time [...] who have questions please contact the health nurse behavioral health care that requested your imaging first. Procedures Assessment and Plan: 56 y.o. female [...] and X-ray ordered Gabriele Rader PA 01/03/22 2494 documented in this encounter Miscellaneous Notes * ED Triage - Jazmin Lugo RN - 01/03/2022 4:53 PM EDT HPI [...] 01/03/2022 5:40 PM EDT BASIC METABOLIC PANEL STAT 01/03/2022 5:40 PM EDT XR KNEE AP & LAT RIGHT STAT 01/03/2022 5:28 PM EDT documented in this encounter Results * Differential, Automated (01/03/2022 5:40 PM EDT) Neutrophil % 57.8 % [facility] Neutrophil Absolute 5.28 1.70 - 6.10 x10(3)/[facility] Lymph % 29.9 % [facility] Lymphocytes Abs 2.7 0.9 - 3.2 x10(3)/[facility] Monocyte % 9.2 % [facility] Monocyte Abs 0.8 0.3 - 0.9 x10(3)/[facility] Eos % 1.9 % [facility] Eosinophils Abs 0.2 0.0 - 0.4 x10(3)/[facility] Basophil % 1.0 % [facility] Baso Absolute 0.1 0.0 - 0.1 x10(3)/[facility] Immature Gran % 0.20 % [facility] Comment: Immature granulocytes(IG's)percentage and absolute count will include metamyelocytes, myelocytes, and promyelocytes. Blood smears from CBCs yielding IG's will be scanned manually for concordance. If this scan disagrees with the automated IG or if promyelocytes are noted, a manual differential will be performed. Immature Gran Absolute 0.02 0.00 - 0.04 x10(3)/[facility] Blood 01/03/2022 5:40 PM EDT 01/03/2022 5:50 PM EDT Narrative Resulting Agency Comment Spec In Lab Gabriele ANDERSEN HEMATOLOGY ORDERABLE S Performing Organization Address City/State/[facility] Co de Phone Number [facility] [place] [address] * Hemogram (01/03/2022 5:40 PM EDT) White Blood Cell 9.1 4.0 - 9.5 x10(3)/[facility] Red Blood Cell 4.88 4.00 - 5.21 x10(6)/[facility] Hemoglobin 13.3 11.7 - 15.5 g/dL [facility] Hematocrit 40.7 35.7 - 45.8 % [facility] Mean Cell Volume 83.4 82.6 - 94.4 fL [facility] Mean Cell Hemoglobin 27.3 27.1 - 32.0 pg [facility] Mean Cell Hemoglobin Concentration 32.7 31.7 - 35.0 g/dL [facility] Platelet 281 145 - 357 x10(3)/[facility] RDW Standard Deviation 42.1 37.0 - 46.0 fL [facility] RDW coefficient of variation 13.8 11.5 - 14.1 % [facility] Mean Platelet Volume 9.9 7.6 - 12.9 fL [facility] NRBC% auto 0.0 % [facility] NRBC Absolute 0.000 0.000 - 0.000 x10(3)/[facility] Blood 01/03/2022 5:40 PM EDT 01/03/2022 5:50 PM EDT Narrative Resulting Agency Comment Spec In Lab Gabriele Rader PA HEMATOLOGY ORDERABLE S [facility] [place] [address] * (ABNORMAL) CRP, acute inflammation (01/03/2022 5:40 PM EDT) [facility] C-Reactive Protein 5.9(H) <=4.9 mg/L [facility] Blood 01/03/2022 5:40 PM EDT 01/03/2022 5:50 PM EDT Narrative Resulting Agency Comment Spec In Lab Sharmaine Garcia DO CHEMISTRY O RDERABLES [facility] [place] [address] * Sedimentation rate (01/03/2022 5:40 PM EDT) Pathologist [facility] Sedimentation Rate Automated 23 2 - 39 mm/hr [facility] Comment: Effective September 14, 2019 new capillary photometric technology has resulted in a change in reference ranges. It is recommended that each ESR result be reviewed with its own age appropriate reference range. Blood 01/03/2022 5:40 PM EDT 01/03/2022 5:50 PM EDT Narrative Resulting Agency Comment Spec In Lab Sharmaine Alfonso Franchescakip HEMATOLOGY ORDERABLES [facility] [address] * (ABNORMAL) Basic Metabolic Panel (non-fasting) (01/03/2022 5:40 PM EDT) Glucose 84 65 - 199 mg/dL [facility] Comment:Diabetes: >=200 mg/d L plus symptoms Blood Urea Nitrogen 19(H) 8 - 18 mg/dL [facility] Creatinine 0.90 0.70 - 1.20 mg/dL [facility] Sodium 141 135 - 145 mmol/L [facility] Potassium 4.0 3.5 - 5.0 mmol/L [facility] Comment: Please note: ??Patients with WBC >100,000 may have falsely elevated Potassium levels. ??For accurate Potassium quantification in these patients send serum separator tube (gold top) for subsequent determinations. ??Contact the Clinical Chemistry Laboratory if there are any questions. Chloride 103 98 - 107 mmol/L [facility] Carbon Dioxide 27 22 - 31 mmol/L [facility] Anion Gap 11 5 - 15 mmol/L [facility] Calcium 9.6 8.5 - 10.5 mg/dL [facility] Est Glomerular Filtration Rate 70 >=60 mL/min/1. 73 m?? [facility] Comment: This patient? s [...] Lab Sharmaine Garcia DO CHEMISTRY O RDERABLES [facility] [place] [address] * XR Knee 1-2 Views Right (Generic) [...] who have questions please contact the health nurse behavioral health care that requested your imaging first. ? [...] patients who have questions please contactthe health nurse behavioral health care that requested your imaging first. Sharmaine Garcia DO IMG DX CHERY MARTINEZ documented in this encounter Visit Diagnoses Diagnosis Acute pain of left knee documented in this encounter Care Teams Podiatric Technician Relationship Specialty Start Date End Date Sari Hya MD [facility] [address] [place] [address] PCP - General 05/21/11 documented as of this encounter
--- OUTSIDE RECORDS SUMMARY | 2024-05-09 04:24 | XMS_ITS | Encounter Summary ---
Author Organization [facility] Address [facility] [place] [address] Care Team Providers Care Unix System Administrator Name Role Phone Sari Hay MD Primary Care Provider [phone] Encounter Details Date Type Department Care Team (Late st Contact Info) Description 03/15/2021 Telephone [place] [phone] Saud Barajas MD [facility] [place] [address] Social History Tobacco Use Types Packs/Day Years [...] is concerned. Saud Barajas [facility] #[id number] documented in this encounter Plan of Treatment Not on file documented as of this encounter Visit Diagnoses Not on filedocumented in this encounter Care Teams Unix System Administrator Relationship Specialty Start Date End Date Sari Hay MD [address] [place] [address] PCP - General 05/21/11 documented as of this encounter
--- OUTSIDE RECORDS SUMMARY | 2024-05-09 04:24 | XMS_ITS | Encounter Summary ---
Author [facility] [place] [address] Care Team Providers Care Chemical Treatment Plant Technician Name Role Phone Sari Hay MD Primary Care Provider [phone] Encounter Details Date Type Department Care Team (Late st Contact Info) Description 06/18/2021 [place] [phone] Rachel Rahman Social History Tobacco Use Types [...] schedule with Marissa Taylor. Awaiting imaging from [facility]. Let patient know we will be calling her to schedule soon. documented in this encounter Plan of Treatment Not on file documented as of this encounter Visit Diagnoses Not on filedocumented in this encounter Care Teams Chemical Treatment Plant Technician Relationship Specialty Start Date End Date Sari Hay MD [address] [facility] [place] [address] PCP - General 05/21/11 documented as of this encounter
--- OUTSIDE RECORDS SUMMARY | 2024-05-09 04:24 | XMS_ITS | Encounter Summary ---
Author Organization [facility] Address [facility] [place] [address] Care Team Providers Care Mechanical Design Engineer Facilities Name Role Phone Sari Hay MD Primary Care Provider [phone] Reason for Visit * Reason Onset Date Comments Referral 03/15/2021 Encounter Details Date Type Department Care Team (Late st Contact Info) Description 03/15/2021 Telephone [place] [phone] Pablo Sutton MD [facility] [place] [address] Referral Social History Tobacco Use Types Packs/Day [...] request that the home health referral to [facility] be faxed again. She spoke with the agency and they have not received the referral yet. [facility] referral and supporting documentation faxed again today. F: [phone] documented in this encounter Plan of Treatment Not on file documented as of this encounter Visit Diagnoses Not on filedocumented in this encounter Care Teams Mechanical Design Engineer Facilities Relationship Specialty Start Date End Date Sari Hay MD [address] [place] [address] PCP - General 05/21/11 documented as of this encounter
--- OUTSIDE RECORDS SUMMARY | 2024-05-09 04:24 | XMS_ITS | Encounter Summary ---
Author Organization [facility] Address [facility] [address] [place] [address] Care Team Providers Care Electronics Warfare Technician Name Role Phone Sari Hay MD Primary Care Provider [phone] Reason for Visit * Auth/Cert Specialty Diagnoses / Procedures Referred By Emmanuel t Referred To Contact Diagnoses Right Knee DJD Procedures PRO TOTAL KNEE ARTHROPLASTY TOTAL KNEE ARTHROPLASTY (WRVU 20.72) MODIFIER MEDACTA-TOTAL KNEE Referral ID Status Reason Start Date Expiration Date Visits Re quested Visits Authorized [id number] 1 1 Encounter Details Date Type Department Care Team (Late st Contact Info) Description 03/21/2022 7:30 AM EDT - 03/21/2022 10:00 AM EDT Surgery Main OR at [address] [address] Rod Valdez MD [facility] [place] [address] TOTAL KNEE ARTHROPLASTY (WRVU 19.6) Social History [...] bowel movement. You can also take an kxsy-plq-upmrztg medication, Miralax if needed to combat constipation. [...] as much as possible. Call your doctor ([phone]) if you develop: Fever greater than 100.5 Severe nausea or vomiting Increasing pain that is not controlled by pain medications Increasing redness, swelling, or drainage from incisions Change in sensation FOLLOW-UP APPOINTMENTS: 1. You will have follow-up appointments at [facility] as indicated below in Future Appointment and Orders. 2. You will need to have x-rays prior to your follow-up appointment on 04/23/22. Please come to Radiology, desk 3T, 1 hour BEFORE that appointment for those x-rays. Future Appointments Date Time Provider Department Center 04/23/2022 12:45 PM [facility] DX ROOM 2 Xray [facility] Rad 04/23/2022 1:30 PM Rod Valdez MD [facility] ORTH 3C [facility] If you have questions or concerns: Thursday through Thursday, 8 AM - 5 PM, please call Dr. Rod Valdez MD's office at . If it is after 5 PM, the weekend, or holidays, please call and [facility]. documented in this encounter Medications [...] They will be seen and evaluated by [facility] PT prior to discharge. Their post-discharge PT planis: [facility] PT. A list of Home Health Agencies/DME Vendors which serve the geographical area which the patient resides, was made available to patient/herbicide service sales representative. They have requested a referral to [facility]. No perceived barriers to same-day discharge. Gris Gallagher RN [facility] 03/19/22 11:54 AM documented in this [...] EACH performed by Stanley Koo MD at [facility] OSC ??? PRO REVISE KNEE JOINT REPLACE, 1 PART Left 02/10/2019 @TOTAL KNEE REVISION ARTHROPLASTY, ONE COMPONENT (WRVU 21.12) performed by Rod Valdez MD [facility] MAIN OR ??? PRO REVISE KNEE JOINT REPLACE, 1 PART Left 03/14/2021 TOTAL KNEE REVISION ARTHROPLASTY, ONE COMPONENT (WRVU 21.12) performed by Rod Valdez MD at [facility] MAIN OR ??? PRO XFER SINGLE SUPERFICI LOW LEG TENDON Left 10/01/2015 TENDON TRANSFER, ANKLE, SUPERFICIAL performed by Stanley Koo MD at [facility] ??? 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 Goals: Short Term Goals: Porter Sample Case Goals: Plan: Therapy Frequency (PT): once for [...] EACH performed by Stanley Koo MD at [facility] ??? PRO REVISE KNEE JOINT REPLACE, 1 PART Left 02/10/2019 @TOTAL KNEE REVISION ARTHROPLASTY, ONE COMPONENT (WRVU 21.12) performed by Rod Valdez MD [facility] MAIN OR ??? PRO REVISE KNEE JOINT REPLACE, 1 PART Left 03/14/2021 TOTAL KNEE REVISION ARTHROPLASTY, ONE COMPONENT (WRVU 21.12) performed by Rod Valdez MD at [facility] MAIN OR ??? PRO XFER SINGLE SUPERFICI LOW LEG TENDON Left 10/01/2015 TENDON TRANSFER, ANKLE, SUPERFICIAL performed by Stanley Koo MD at [facility] ??? 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 Goals: Mcfp Goals - OT Porter Sample Case Goals to be met by: 03/21/22 Patient [...] Clinical Decision Making Complexity Score: Low - 43844 Timed Code Treatment: 30 minutes Untimed CodeTreatment: 10 minutes Total Treatment Time: 40 minutes Julia Espinal OT Occupational Therapy Inpatient Rehabilitation Department * Op Note - Rod Valdez MD - 03/21/2022 8:06 AM EDT [facility] Operative Note [address] Patient Name: Sissy Eugene : [id number] MR#: [id number] Case Date: 03/21/2022 Case Scheduled Time: 729 [...] Soft tissue resection and balancing: The laminar electrical maintenance engineer was used to elevate the femur and [...] Implant Name Type Inv. Item Serial No. Game Tester Lot No. LRB No. Used Action CEMENT BONE MEDIUM VISCOSITY 40GM SINGLE DOSE PMMA SMARTSET ([id number]) (AutoReq) - [id number] IMPLANTS CEMENT BONE MEDIUM VISCOSITY 40GM SINGLE DOSE PMMA SMARTSET ([id number]) (AutoReq) [employer] [facility] [id number] Right 2 Implanted COMP PATELLAR KNEE SIZE 2 RESURFACING UHMWPE GMK E CROSS ([id number]) (AUTOREQ) - [id number] IMPLANTS COMP PATELLAR KNEE SIZE 2 RESURFACING UHMWPE GMK E CROSS ([id number]) (AutoReq) MEDACTA [place] - MEDACTA [place] Right 1 Implanted BASEPLATE TIBIAL SZ 4 RIGHT JULIA COCR GMK ([id number]) (AUTOREQ) - [id number] IMPLANTS BASEPLATE TIBIALSZ 4 RIGHT JULIA COCR GMK ([id number]) (AutoReq) [employer]ACT[employer] [place] - MEDACT[employer] [place] [id number] Right 1 Implanted INSERT TIBIAL 12MM SZ 4 RT FIX POLY GMK E CROSS ([id number]) (AUTOREQ) - [id number] IMPLANTS INSERT TIBIAL 12MM SZ 4 RT FIX POLY GMK E CROSS ([id number]) (AutoReq) [employer]ACTA [place] - [place] [place] [id number] Right 1 Implanted COMP FEMORAL KNEE SZ 4+ RIGHT JULIA PS COCR ([id number]) (AUTOREQ) - [id number] IMPLANTS COMP FEMORAL KNEE SZ 4+ RIGHT JULIA PS COCR ([id number]) (AutoReq) [employer]ACT[employer] [place] - [employer] [place] [id number] Right 1 Implanted documented in this encounter [...] Condyle & Plateau Medial & Lat Compartments (49847) 03/21/2022 7:44 AM EDT Right Knee DJD [...] Routine 0631 (Given - Provid er: Stephen Crocktet RN) oxyCODONE (Roxicodone) tablet 5 mg (COMPLETED) [...] RN) documented in this encounter Care Teams Electronics Warfare Technician Relationship Specialty Start Date End Date Sari Hay MD [facility] [address] [place] [address] PCP - General 05/21/11 documented as of this encounter
--- OUTSIDE RECORDS SUMMARY | 2024-05-09 04:24 | XMS_ITS | Encounter Summary ---
Author Organization [facility] Address [facility] [place] [address] Care Team Providers Care Special Procedures Tech Name Role Phone Sari Hay MD Primary Care Provider [phone] Encounter Details Date Type Department Care Team ([facility] st Contact Info) Description 03/14/2022 11:15 AM EDT Telephone Pre Admission Testing at [address] [phone] Social History Tobacco Use Types Packs/Day Years [...] VNA for the first couple of weeks; [facility]; [place], [place] Are you scheduled for outpatient PT? Who with and when is your first appointment? Will arrange today. [facility], [place], [place] Do you currently have a walker? If not, is there a plan in place to acquire one ?( please document who and when) Pt. Prefers to use crutches. Will see if hers are still in good shape. documented in this encounter Plan of Treatment Not on file documented as of this encounter Visit Diagnoses Not on filedocumented in this encounter Care Teams Special Procedures Tech Relationship Specialty Start Date End Date Sari Hay MD [address] [place] [address] PCP - General 05/21/11 documented as of this encounter
--- OUTSIDE RECORDS SUMMARY | 2024-05-09 04:24 | XMS_ITS | Encounter Summary ---
Author Organization [facility] Address [facility] [place] [address] Care Team Providers Care Instructor Hairspring Name Role Phone Sari Hay MD Primary Care Provider [phone] Encounter Details Date Type Department Care Team (Late st Contact Info) Description 06/14/2021 Telephone [place] [phone] Teressa Taylor PA [facility] [address] [place] [address] Social History Tobacco Use Types Packs/Day Years [...] on filedocumented in this encounter Care Teams Instructor Hairspring Relationship Specialty Start Date End Date Sari Hay MD [facility] [address] [facility] [place] [address] PCP - General 05/21/11 documented as of this encounter
--- OUTSIDE RECORDS SUMMARY | 2024-05-09 04:24 | XMS_ITS | Encounter Summary ---
Author Organization [facility] Address [facility] [place] [address] Care Team Providers Care Special Education Para Professional Name Role Phone Sari Hay MD Primary Care Provider [phone] Reason for Visit * Reason Onset Date Comments Other 03/21/2022 Encounter Details Date Type Department Care Team (Late st Contact Info) Description 03/21/2022 Telephone [place] [address] Rod Valdez MD [facility] [place] [address] Other Social History Tobacco Use Types Packs/Day [...] She was informed to contact [facility] at [phone] in order to discuss this as they would be the department to assist. She will plan to do this and has no further questions or concerns. * Telephone Encounter - Kierra Valadez - 03/21/2022 4:29 PM EDT Name of person calling: Sissy Have you had Surgery?yes If so when?03/21/22 Who was the Surgeon?Dr. Valdez What is the question: [facility] glacier thermos is broken, cuff that goes around knee has puncture in it so its spitting water. Currently has cryo cuff from neighbor and looking to see if she can get a replacement. Please advise. Best number to reach the caller: [phone] documented in this encounter Plan of Treatment Not on file documented as of this encounter Visit Diagnoses Not on filedocumented in this encounter Care Teams Special Education Para Professional Relationship Specialty Start Date End Date Sari Hay MD [address] [place] [address] PCP - General 05/21/11 documented as of this encounter
--- OUTSIDE RECORDS SUMMARY | 2024-05-09 04:24 | XMS_ITS | Encounter Summary ---
Author Organization [facility] Address [facility] [place] [address] Care Team Providers Care Consumer Safety Inspector Name Role Phone Sari Hay MD Primary Care Provider [phone] Reason for Referral * Diagnostic Test (Emergency) - Closed Specialty Diagnoses / Procedures Referred By Emmanuel cisneros Referred To Contact Radiology Diagnoses S/P revision of total knee, left Procedures CT Knee wo Contrast Left (Generic) Teressa Taylor PA [facility] [place] [address] [facility] [place] [address] Referral ID Status Reason Start Date Expiration Date V isits Requested Visits Authorized [id number] Closed Specialty Service Requested 06/21/2021 08/19/2021 1 1 Encounter Details Date Type Department Care Team (Late st Contact Info) Description 06/21/2021 [place] [address] Teressa Taylor PA [facility] [place]OP[facility] [address] S/P revision of total knee, [...] who have questions please contact the health small animal caretaker that requested your imaging first. ? Electronically signed by: Rachel Angel MD, [facility] ([phone]), at 06/26/2021 4:14 PM Narrative 06/26/2021 4:14 [...] for a 4.3 cm segment (series 7 [id number]; series 5 images [phone]). No fracture line. [...] patients who have questions please contactthe health small animal caretaker that requested your imaging first. Electronically signed by: Rachel Angel MD, [facility]([phone]), at 06/26/2021 4:14 PM Ammy Latham MD IMG CT ORDERABLES documented in this encounter Visit Diagnoses Diagnosis S/P revision of total knee, left S/P revision of total knee, left documented in this encounter Care Teams Consumer Safety Inspector Relationship Specialty Start Date End Date Sari Hay MD [address] [place] [address] PCP - General 05/21/11 documented as of this encounter
--- OUTSIDE RECORDS SUMMARY | 2024-05-09 04:24 | XMS_ITS | Encounter Summary ---
Author Organization [facility] [place] [address] Care Team Providers Care Communication Center Operator Name Role Phone Sari Hay MD Primary Care Provider [phone] Encounter Details Date Type Department Care Team (Latest Contact Info) Description 03/12/2022 9:45 AM EDT [place] [address] Primary osteoarthritis of right knee; Pain of [...] of right lower extremity BASIC METABOLIC PANEL Routine 03/12/2022 10:23 AM EDT Primary osteoarthritis of right knee Pain of right lower extremity documented in this encounter Results * Differential, Automated (03/12/2022 10:23 AM EDT) Neutrophil % 46.8 % [facility] Neutrophil Absolute 2.43 1.70 - 6.10 x10(3)/[facility] Lymph % 39.8 % [facility] Lymphocytes Abs 2.1 0.9 - 3.2 x10(3)/[facility] Monocyte % 8.5 % [facility] Monocyte Abs 0.4 0.3 - 0.9 x10(3)/[facility] Eos % 3.5 % [facility] Eosinophils Abs 0.2 0.0 - 0.4 x10(3)/[facility] Basophil % 1.2 % [facility] Baso Absolute 0.1 0.0 - 0.1 x10(3)/[facility] Immature Gran % 0.20 % [facility] Comment: Immature granulocytes(IG's)percentage and absolute count will include metamyelocytes, myelocytes, and promyelocytes. Blood smears from CBCs yielding IG's will be scanned manually for concordance. If this scan disagrees with the automated IG or if promyelocytes are noted, a manual differential will be performed. Immature Gran Absolute 0.01 0.00 - 0.04 x10(3)/[facility] Blood 03/12/2022 10:2 3 AM EDT 03/12/2022 10:34 AM EDT Narrative Resulting Agency Comment Spec In Lab Rod Valdez MD HEMATOLOGY ORDERABLE S Performing Organization Address City/[facility]/ZIP Co de Phone Number [facility] [place] [address] * (ABNORMAL) Hemogram (03/12/2022 10:23 AM EDT) White Blood Cell 5.2 4.0 - 9.5 x10(3)/mc L [facility] Red Blood Cell 4.96 4.00 - 5.21 x10(6)/mc L [facility] Hemoglobin 13.8 11.7 - 15.5 g/dL [facility] Hematocrit 42.3 35.7 - 45.8 % [facility] Mean Cell Volume 85.3 82.6 - 94.4 fL [facility] Mean Cell Hemoglobin 27.8 27.1 - 32.0 pg [facility] Mean Cell Hemoglobin Concentration 32.6 31.7 - 35.0 g/dL [facility] Platelet 251 145 - 357 x10(3)/mc L [facility] RDW Standard Deviation 44.3 37.0 - 46.0 fL [facility] RDW coefficient of variation 14.2(H) 11.5 - 14.1 % [facility] Mean Platelet Volume 9.9 7.6 - 12.9 fL [facility] NRBC% auto 0.0 % [facility] NRBC Absolute 0.000 0.000 - 0.000 x10(3)/ L [facility] Blood 03/12/2022 10:2 3 AM EDT 03/12/2022 10:34 AM EDT Narrative Resulting Agency Comment Spec In Lab Rod Valdez MD HEMATOLOGY ORDERABLE S [facility] [place] [address] * Basic Metabolic Panel (non-fasting) (03/12/2022 10:23 AM EDT) Glucose 95 65 - 199 mg/dL [facility] Comment:Diabetes: >=200 mg/d L plus symptoms Blood Urea Nitrogen 18 8 - 18 mg/dL [facility] [...] - 107 mmol/L [facility] Carbon Dioxide 27 22 - 31 mmol/L [facility] Anion Gap 9 5 - 15 mmol/L [facility] Calcium 9.9 8.5 - 10.5 mg/dL [facility] Est Glomerular Filtration Rate 74 >=60 mL/min/1. 73 m?? [facility] [...] MD CHEMISTRY ORDERABLES [facility] [place] [address] * Prothrombin Time (03/12/2022 10:23 AM EDT) Prothrombin Time 11.2 9.4 - 12.5 sec [facility] International Normalization Ratio 1.0 [facility] Comment: An INR <2.0 indicates [...] MD HEMATOLOGY ORDERABLE S Performing Organization Address [facility] Co de Phone Number [facility] [place] [address] * APTT (03/12/2022 10:23 AM EDT) Partial Thromboplastin Time 34 25 - 37 sec [facility] Comment: The PTT is NOT appropriate for heparin monitoring. Use the Anti-Xa level for heparin monitoring (HEP UFH) or LMWH monitoring (HEP LMW). A PTT less than 37 seconds generally indicates adequate hemostasis. Blood 03/12/2022 10:2 3 AM EDT 03/12/2022 10:34 AM EDT Narrative Resulting Agency Comment Spec In Lab Rod Valdez MD HEMATOLOGY ORDERABLE S Performing Organization Address City/[facility]/ZIP Co de Phone Number [facility] [place] [address] documented in this encounter Visit Diagnoses Diagnosis Primary osteoarthritis of right knee Primary localized osteoarthrosis, lower leg Pain of right lower extremity documented in this encounter Care Teams Communication Center Operator Relationship Specialty Start Date End Date Sari Hay MD [address] [place] [address] PCP - General 05/21/11 documented as of this encounter
--- OUTSIDE RECORDS SUMMARY | 2024-05-09 04:24 | XMS_ITS | Encounter Summary ---
Author Organization [facility] Address [facility] [place] [address] Care Team Providers Care Shorts Sifter Name Role Phone Sari Hay MD Primary Care Provider [phone] Encounter Details Date Type Department Care Team (Late st Contact Info) Description 06/14/2021 Notes [place] [address] Teressa Taylor PA [facility] [place] [address] Social History Tobacco Use Types Packs/Day Years [...] on filedocumented in this encounter Care Teams Shorts Sifter Relationship Specialty Start Date End Date Sari Hay MD [address] [place] [address] PCP - General 05/21/11 documented as of this encounter
--- OUTSIDE RECORDS SUMMARY | 2024-05-09 04:24 | XMS_ITS | Encounter Summary ---
Author Organization [facility] Address [facility] [place] [address] Care Team Providers Care Faa Certified Powerplant Mechanic Name Role Phone Sari Hay MD Primary Care Provider [phone] Encounter Details Date Type Department Care Team (Late st Contact Info) Description 05/30/2021 Ancillary Procedure [place] [address] Sari Hay MD [facility] [address] [place], [place] [id number] Social History Tobacco Use Types Packs/Day Years [...] Lower Extremity (05/30/2021 12:00 AM EDT) Narrative [facility] - 06/19/2021 10:35 AM EDT This exam is auto-finalizing. It's purpose is for storage only. Sari Hay MD [facility] FILM LIBRARY ORD ERABLES DH [place], [place] documented in this encounter Visit Diagnoses Not on filedocumented in this encounter Care Teams Faa Certified Powerplant Mechanic Relationship Specialty Start Date End Date Sari Hay MD [address] [place] [address] [facility] [place] [address] PCP - General 05/21/11 documented as of this encounter
--- OUTSIDE RECORDS SUMMARY | 2024-05-09 04:24 | XMS_ITS | Encounter Summary ---
Author Organization [facility] [place] [address] Care Team Providers Care Event Marketing Representative Name Role Phone Sari Hay MD Primary Care Provider [phone] Reason for Visit * Reason Onset Date Comments Medication Refill 03/29/2021 Encounter Details Date Type Department Care Team (Late st Contact Info) Description 03/29/2021 Telephone [place] [phone] Robert Cornell Medication Refill Social History Tobacco Use [...] refill line to place refill request. P: [phone] documented in this encounter Plan of Treatment Not on file documented as of this encounter Visit Diagnoses Not on filedocumented in this encounter Care Teams Event Marketing Representative Relationship Specialty Start Date End Date Sari Hay MD [facility] [address] [facility] [place] [address] PCP - General 05/21/11 documented as of this encounter
--- OUTSIDE RECORDS SUMMARY | 2024-05-09 04:24 | XMS_ITS | Encounter Summary ---
Author Organization [facility] Address [facility] [place] [address] Care Team Providers Care Stripper Shovel Operator Name Role Phone Sair Hya MD Primary Care Provider [phone] Reason for Visit * Reason Comments Follow-up INCREASED L KNEE DUONG N, SWELLING FELL 09/10/21 Encounter Details Date Type Department Care Team (Late st Contact Info) Description 10/09/2021 9:00 AM EST Office [place] [address] Rod Valdez MD [facility] [place] [address] S/P revision of total knee, left Social [...] ROS is negative for fevers or chills. [facility] Surgical Followup Visit 10/09/2021 PROMIS-10 General Health [...] surgery on same body part Yes [facility] and [place] Surgeon Christy Valdez Date of surgery 02/02/2019 [...] left documented in this encounter Care Teams Stripper Shovel Operator Relationship Specialty Start Date End Date Sari Hay MD [facility] [address] [place] [address] PCP - General 05/21/11 documented as of this encounter
--- OUTSIDE RECORDS SUMMARY | 2024-05-09 04:24 | XMS_ITS | Encounter Summary ---
Author Organization [facility] Address [facility] [place] [address] Care Team Providers Care Motor Patrol Operator Name Role Phone Sari Hay MD Primary Care Provider [phone] Reason for Visit * Auth/Cert Specialty Diagnoses / Procedures Referred By Emmanuel cisneros Referred To Contact Diagnoses Right Knee DJD Procedures PRO TOTAL KNEE ARTHROPLASTY TOTAL KNEE ARTHROPLASTY (WRVU 20.72) MODIFIER MEDACTA-TOTAL KNEE Referral ID Status Reason Start Date Expiration Date Visits Re quested Visits Authorized [id number] 1 1 Encounter Details Date Type Department Care Team (Late st Contact Info) Description 03/21/2022 7:43 AM EDT Anesthesia Event Main OR at [address] [phone] Liliana Miller CRNA [address] [place] [address] Anesthesia Record Procedure Summary Procedure Name Responsible [...] knee; Left total knee revision ; 06/02/22 ([employer] cleanup utility RA#[id number]); 1715 ([employer] cleanup utility RA#[id number]) 03/14/21 1409 by Nuha Garcia RN 06/02/22 1715 by Sae Abdi (RETIRED) Peripheral IV Line - Single Lumen 03/21/22; 0631; metacarpal vein (top of hand), left; [id number] catheter system; Anatomical Landmarks; 20 gauge; MW; [...] Procedure Summary Date: 03/21/22 Room / Location: [facility] MAIN OR Anesthesia Start: 742 [...] shown include unvalidated device data. Patient Location: PACU/[facility] Level of Consciousness: Awake and Alert Pain [...] End Time: 03/21/2022 7:11 AM Patient Location: [facility] The patient was greeted; the risks and [...] AM Nerve Sensory/MotorTest: Events: no complications Staff: Resident/BANQUET KITCHEN SUPERVISOR:: Liliana Miller CRNA Notes: Block requested by [...] down immediately upon completion of SAB procedure. Resident/BANQUET KITCHEN SUPERVISOR: Liliana Miller CRNA Second Resident/BANQUET KITCHEN SUPERVISOR: Dora Bills CRNA SRNA: Fellow: Attending Physician: ~~~~~~~~~~~~~~~~~~~~~~~~~~~~~~~~~~~~~~~~~~~~~~~~~~~~~~~~~~~~ * Anesthesia Preprocedure Evaluation - Liliana Miller CRNA - 03/19/2022 11:54 AM EDT Pre-Anesthesia Evaluation for: Sissy Eugene a 56 y.o. female. Procedure(s): TOTAL KNEE REVISION ARTHROPLASTY, COMPLETE (WRVU 27.11) Patient Active Problem List Diagnosis ??? Plantar fasciitis, right ??? Leona sign present in right knee ??? Primary osteoarthritis of right knee ??? S/P revision of total knee, left [place] 03/14/21 ??? Closed fracture of distal end [...] EACH performed by Stanley Koo MD at [facility] ??? PRO REVISE KNEE JOINT REPLACE, 1 PART Left 02/10/2019 @TOTAL KNEE REVISION ARTHROPLASTY, ONE COMPONENT (WRVU 21.12) performed by Rod Valdez MD [facility] OR ??? PRO REVISE KNEE JOINT REPLACE, 1 PART Left 03/14/2021 TOTAL KNEE REVISION ARTHROPLASTY, ONE COMPONENT (WRVU 21.12) performed by Rod Valdez MD at [facility] MAIN OR ??? PRO XFER SINGLE SUPERFICI LOW LEG TENDON Left 10/01/2015 TENDON TRANSFER, ANKLE, SUPERFICIAL performed by Stanley Koo MD at [facility] ??? TISSUE TRANSFER ACL cadaver [...] labs 03/12/2022. Prior anesthetics: Left T[place] revision [place] [place] iGel 3 Left TKA ([facility] [place], 02/2019[place] SAB at L5-S1 w/3.5 Abel w/ANITA at 8 cm on 2nd attempt Metatarsal osteotomy ([facility] [place], 09/2015[place] iGel #4, ankle block Prior anesthesia [...] down immediately upon completion of SAB procedure. Resident/BANQUET KITCHEN SUPERVISOR: ? Liliana Miller CRNA Second Resident/BANQUET KITCHEN SUPERVISOR: ??Dora Bills CRNA SRNA: ? Fellow: ? Attending Physician: ? ~~~~~~~~~~~~~~~~~~~~~~~~~~~~~~~~~~~~~~~~~~~~~~~~~~~~~~~~~~~~ Liliana Miller CRNA SAFETY TEACHER [facility] * Anesthesia Block (03/21/2022 7:05 AM [...] Nerve Sensory/MotorTest: ??Events: no complications ?? Staff: ??Resident/BANQUET KITCHEN SUPERVISOR:: ??Liliana Miller CRNA Notes: ?? Block requested [...] see nursing documentation. ?? Liliana Miller CRNA SAFETY TEACHER [facility] documented in this encounter Visit Diagnoses [...] mg documented in this encounter Care Teams Motor Patrol Operator Relationship Specialty Start Date End Date Sari Hay MD [facility] [address] [place] [address] PCP - General 05/21/11 documented as of this encounter
--- OUTSIDE RECORDS SUMMARY | 2024-05-09 04:24 | XMS_ITS | Encounter Summary ---
Author Organization [facility] [place] [address] Care Team Providers Care Drying Frame Operator Name Role Phone Sari Hay MD Primary Care Provider [phone] Reason for Visit * Reason Onset Date Comments Post Procedure Call 06/14/2021 Encounter Details Date Type Department Care Team (Late st Contact Info) Description 06/14/2021 [place] [phone] Chanel Clark RMA Post Procedure Call Social [...] abut this. Sissy can be reached at [phone]. Message sent to Marissa as requested. documented in this encounter Plan of Treatment Not on file documented as of this encounter Visit Diagnoses Not on filedocumented in this encounter Care Teams Drying Frame Operator Relationship Specialty Start Date End Date Sari Hay MD [address] [place] [address] PCP - General 05/21/11 documented as of this encounter
--- OUTSIDE RECORDS SUMMARY | 2024-05-09 04:24 | XMS_ITS | Encounter Summary ---
Author Organization [facility] Address [facility] [place] [address] Care Team Providers Care Torch Straightener Name Role Phone Sari Hay MD Primary Care Provider [phone] Reason for Visit * Reason Onset Date Comments Fall 10/08/2021 Encounter Details Date Type Department Care Team (Late st Contact Info) Description 10/08/2021 Telephone [place] [phone] Rod Valdez MD [facility] [place] [address] Fall Social History Tobacco Use Types Packs/Day [...] if anything changes. Leandro MarshallEd, LAT, ATC Compound Specialist [facility] Orthopaedics * Telephone Encounter - BrittaniAbby hernández [...] tendons. Best number to reach the caller: [phone] documented in this encounter Plan of Treatment Not on file documented as of this encounter Visit Diagnoses Not on filedocumented in this encounter Care Teams Torch Straightener Relationship Specialty Start Date End Date Sari Hay MD [facility] [address] [facility] [address] [place] [address] PCP - General 05/21/11 documented as of this encounter
--- OUTSIDE RECORDS SUMMARY | 2024-05-09 04:24 | XMS_ITS | Encounter Summary ---
Author Organization [facility] [place] [address] Care Team Providers Care E/M Engineer Name Role Phone Sari Hay MD Primary Care Provider [phone] Encounter Details Date Type Department Care Team (Late st Contact Info) Description 03/12/2022 10:00 AM EDT Clinical Support Same Day at [facility] [place] [address] Social History Tobacco Use Types Packs/Day Years [...] Patient has had general anesthesia previously at [facility] without a problem. Clearfast given. PLAN: Testing: Blood work Procedure date: 03/21 [facility] with Dr. Valdez documented in this encounter Plan of Treatment Not on file documented as of this encounter Visit Diagnoses Not on filedocumented in this encounter Care Teams E/M Engineer Relationship Specialty Start Date End Date Sari Hay MD [address] [facility] 1 [place] [address] PCP - General 05/21/11 documented as of this encounter
--- OUTSIDE RECORDS SUMMARY | 2024-05-09 04:24 | XMS_ITS | Encounter Summary ---
Author Organization [facility] Address [facility] [place] [address] Care Team Providers Care Automobile Service Station Mechanic Name Role Phone Sari Hay MD Primary Care Provider [phone] Reason for Visit * Reason Comments Post Op 03-21-22 Right TKA Encounter Details Date Type Department Care Team (Late st Contact Info) Description 04/23/2022 1:30 PM EDT Office [place] [address] Rod Valdez MD [facility] DR [place] [address] Presence of right artificial knee joint Social [...] 1:30 PM EDT Arthroplasty/Orthopaedic History: 1. 5 ([place]) LEFT TKA revision, joint infection 2. 6 ([place]) LEFT TKA revision, aseptic loosening 3. 03/21/22 ([place]) RIGHT TKA HPI: Sissy Eugene is a [...] subsidence, loosening, or periprosthetic complication. Questionnaire Responses: [facility] Surgical Postop Visit 04/23/2022 PROMIS-10 General Health [...] Additional surgery on same body part Yes [place], [place] Surgeon Parra Date of surgery 10/01/2014 [...] - Rate overall condition today - Orthopeadics [facility] Response 04/23/2022 HOOS JR Scores 70.43 KOOS [...] means documented in this encounter Care Teams Automobile Service Station Mechanic Relationship Specialty Start Date End Date Sari Hay MD [address] [place] [address] PCP - General 05/21/11 documented as of this encounter
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
--- OUTSIDE RECORDS SUMMARY | 2024-05-09 04:24 | XMS_ITS | Encounter Summary ---
Author Organization [facility] [place] [address] Care Team Providers Care Medical Planner Name Role Phone Sari Hay MD Primary Care Provider [phone] Reason for Visit * Reason Onset Date Comments Questions 04/01/2021 Encounter Details Date Type Department Care Team (Late st Contact Info) Description 04/01/2021 Telephone [place] [address] Michael Rios Questions Social History Tobacco Use [...] line to assist with prior authorization Patient/Responsible libertarian voices an understanding of advice? yes Patient/Responsible libertarian intends to comply with action/disposition: yes documented in this encounter Plan of Treatment Not on file documented as of this encounter Visit Diagnoses Not on filedocumented in this encounter Care Teams Medical Planner Relationship Specialty Start Date End Date Sari Hay MD [facility] [address] [place] [address] PCP - General 05/21/11 documented as of this encounter
--- OUTSIDE RECORDS SUMMARY | 2024-05-09 04:24 | XMS_ITS | Encounter Summary ---
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 She did bring [...] on filedocumented in this encounter Care Teams Fiscal Clerk Relationship Specialty Start Date End Date Sari Hay MD [address] [place] [address] PCP - General 05/21/11 documented as of this encounter
--- OUTSIDE RECORDS SUMMARY | 2024-05-09 04:24 | XMS_ITS | Encounter Summary ---
Author Organization [facility] Address [facility] [place] [address] Care Team Providers Care Protective Officer Name Role Phone Sari Hay MD Primary Care Provider [phone] Encounter Details Date Type Department Care Team (Late st Contact Info) Description 02/07/2022 Telephone Orthopaedics at [address] [phone] Rod Valdez MD [facility] [place] [address] Social History Tobacco Use Types Packs/Day Years [...] surgery in mid-March with Dr. Valdez @ [facility]. 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 Please look into [place] that was completed & currently being reviewed by anesthesia? documented in this encounter Plan of Treatment Not on file documented as of this encounter Visit Diagnoses Not on filedocumented in this encounter Care Teams Protective Officer Relationship Specialty Start Date End Date Sari Hay MD [address] [facility] 1 [place] [address] PCP - General 05/21/11 documented as of this encounter
--- OUTSIDE RECORDS SUMMARY | 2024-05-09 04:24 | XMS_ITS | Encounter Summary ---
Author Organization [facility] Address [facility] [place] [address] Care Team Providers Care Pe Manager Name Role Phone Sari Hay MD Primary Care Provider [phone] Reason for Visit * Reason Onset Date Comments Pre Procedure Call 02/03/2022 Encounter Details Date Type Department Care Team (Late st Contact Info) Description 02/03/2022 Telephone [place] [phone] Rod Valdez MD [facility] DR [place] [address] Pre Procedure Call Social History Tobacco Use [...] for Right LOREN with Dr. Valdez at [facility]. Labs to be done: 03/12/2022 Where: [facility] Pre-op appt scheduled: 03/12/2022 Where: [facility] Patient contacted and informed of the information [...] Valdez does think that she is a [facility] candidate. Left her the direct number to call the [facility] schedulers to do a health assessment for Anesthesia and if she is approved then she can ask them about his mid-March date there. * Telephone Encounter - Kallie Obando - 02/03/2022 11:10 AM EDT I called and left a message for patient to call [phone] directly and schedule surgery with Dr. Valdez. documented in this encounter Plan of Treatment Not on file documented as of this encounter Visit Diagnoses Not on filedocumented in this encounter Care Teams Pe Manager Relationship Specialty Start Date End Date Sari Hay MD [address] [place] [address] PCP - General 05/21/11 documented as of this encounter
--- OUTSIDE RECORDS SUMMARY | 2024-05-09 04:24 | XMS_ITS | Encounter Summary ---
Author Organization [facility] Address [facility] [address] Care Team Providers Care Heel Seat Fitter Machine Name Role Phone Sari Hay MD Primary Care Provider [phone] Reason for Referral * Physical Therapy (Routine) - Closed Specialty Diagnoses / Procedures Referred By Emmanuel cisneros Referred To Contact Physical Therapy Diagnoses Primary osteoarthritis of right knee Rod Valdez MD [facility] [place] [address] Referral ID Status Reason Start Date Expiration Date V isits Requested Visits Authorized [id number] Closed Evaluate and Treat Non PCP 03/12/2022 09/08/2022 12 12 Reason for Visit * Reason Comments Pre-op Exam 03-21-22 Right TKA Encounter Details Date Type Department Care Team (Late st Contact Info) Description 03/12/2022 8:30 AM EDT Office [place] [address] Rod Valdez MD [facility] [place] [address] Primary osteoarthritis of right knee Social History [...] ??? S/P revision of total knee, left [place] 03/14/21 Z96.652 ??? Plantar fasciitis, right M72.2 [...] where referrals are placed patient lives in [place], no preference on VNA. Prep for Surgery [...] 3 nursing choice facilities: none [facility]NA preference: [facility] Outpatient PT preference: [facility] in [place], [place] Discharge barriers and challenges: None The [...] each documented in this encounter Care Teams Heel Seat Fitter Machine Relationship Specialty Start Date End Date Sari Hay MD [address] [place] [address] PCP - General 05/21/11 documented as of this encounter
--- OUTSIDE RECORDS SUMMARY | 2024-05-09 04:24 | XMS_ITS | Encounter Summary ---
Author Organization [facility] Address [facility] [place] [address] Care Team Providers Care Freelance Displayer Name Role Phone Sari Hay MD Primary Care Provider [phone] Encounter Details Date Type Department Care Team (Late st Contact Info) Description 03/24/2022 Telephone Orthopaedics at [address] [phone] Rod Valdez MD [facility] DR ORTHOPAEDIC [place] [address] Social History Tobacco Use Types Packs/Day Years [...] help with this. Spoke to PACU at [facility], they do not replace damaged equipment. * Telephone Encounter - Kim Cr - 03/24/2022 12:00 PM EDT Who is calling?Ana Rosa Eugene Best call back number: [phone] Best time to call back between 8:00 [...] for review. (Please forward message to the [facility].) * Telephone Encounter - Mariama Gusman - 03/24/2022 9:09 AM EDT Who is calling? Ana Rosa Bernard call back number: [phone] Best time to call back between 8:00 [...] on filedocumented in this encounter Care Teams Freelance Displayer Relationship Specialty Start Date End Date Sari Hay MD [address] [place] [address] PCP - General 05/21/11 documented as of this encounter
--- OUTSIDE RECORDS SUMMARY | 2024-05-09 04:24 | XMS_ITS | Encounter Summary ---
Author Organization [facility] [place] [address] Care Team Providers Care Candy Bar Attendant Name Role Phone Sari Hay MD Primary Care Provider Reason for Visit * Reason Onset Date Comments Medication Refill 03/29/2021 Medication Refill 04/01/2021 Encounter Details Date Type Department Care Team (Late st Contact Info) Description 03/29/2021 Refill [place] [address] Rod Valdez MD [facility] [place] [address] S/P revision of total knee, left Social [...] Requested Prescription to be sent electronically to [facility] [place], [place] (location). Prescription prepped and pended for [...] left documented in this encounter Care Teams Candy Bar Attendant Relationship Specialty Start Date End Date Sari Hay MD [address] [place] [address] PCP - General 05/21/11 documented as of this encounter
--- OUTSIDE RECORDS SUMMARY | 2024-05-09 04:24 | XMS_ITS | Encounter Summary ---
Author Organization [facility] Address [facility] [place] [address] Care Team Providers Care Electronic Warfare Linguist Name Role Phone Sari Hay MD Primary Care Provider [phone] Reason for Visit * Reason Onset Date Comments Questions 01/03/2022 Encounter Details Date Type Department Care Team (Late st Contact Info) Description 01/03/2022 [place] [address] Rod Valdez MD [facility] DR ORTHOPAEDIC SURGERY [place] [phone] Questions Social History Tobacco Use Types Packs/Day [...] total knee revision and still has right [place] knee. Patient states that weightbearing is okay and is utilizing crutches to aid in ambulation. 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 Best number to reach the caller: [phone] OK to leave detailed VM documented in this encounter Plan of Treatment Not on file documented as of this encounter Visit Diagnoses Not on filedocumented in this encounter Care Teams Electronic Warfare Linguist Relationship Specialty Start Date End Date Sari Hay MD [address] [place] [address] PCP - General 05/21/11 documented as of this encounter
--- OUTSIDE RECORDS SUMMARY | 2024-05-09 04:24 | XMS_ITS | Encounter Summary ---
Author Organization [facility] Address [facility] [place] [address] Care Team Providers Care Spirits Model Name Role Phone Sari Hay MD Primary Care Provider [phone] Encounter Details Date Type Department Care Team (Late st Contact Info) Description 02/11/2022 Telephone Main OR at [address] [phone] Lizett Amato Social History Tobacco Use Types [...] on filedocumented in this encounter Care Teams Spirits Model Relationship Specialty Start Date End Date Sari Hay MD [address] [place], [place] [address] PCP - General 05/21/11 documented as of this encounter
--- OUTSIDE RECORDS SUMMARY | 2024-05-09 04:24 | XMS_ITS | Encounter Summary ---
[place] [address] Care Team Providers Care Tankroom Worker Name Role Phone Sari Hay MD Primary Care Provider [phone] Reason for Visit * Reason Onset Date Comments Medication Refill 04/19/2021 Encounter Details Date Type Department Care Team (Late st Contact Info) Description 04/19/2021 Refill [place] [address] Frankie Sun, ANALY S/P revision of total [...] PM EDT Medication Refill Request Surgery/Injury/Provider: 02/10/19 ([place]) LEFT TKA revision, joint infection 03/14/21 ([place]) LEFT TKA revision, aseptic loosening. Femur and [...] Requested Prescription to be sent electronically to [facility] [place], [place] (location). Prescription prepped and pended for Marissa Taylor (provider) review. The patient knows how to contact orthopaedics if any further questions or concerns occur. documented in this encounter Plan of Treatment Not on file documented as of this encounter Visit Diagnoses Diagnosis S/P revision of total knee, left documented in this encounter Care Teams Tankroom Worker Relationship Specialty Start Date End Date Sari Hay MD [address] [place] [address] PCP - General 05/21/11 documented as of this encounter
--- OUTSIDE RECORDS SUMMARY | 2024-05-09 04:24 | XMS_ITS | Encounter Summary ---
Author Organization [facility] Address [facility] [place] [address] Care Team Providers Care Hospital Staff Pharmacist Name Role Phone Sari Hay MD Primary Care Provider [phone] Encounter Details Date Type Department Care Team (Late st Contact Info) Description 01/22/2022 Telephone [place] [id number] Rod Valdez MD [facility] [place] [address] Social History Tobacco Use Types Packs/Day Years [...] patient back? Thank you very much. PH: [phone] documented in this encounter Plan of Treatment Not on file documented as of this encounter Visit Diagnoses Not on filedocumented in this encounter Care Teams Hospital Staff Pharmacist Relationship Specialty Start Date End Date Sari Hay MD [address] [facility] [address] [place] [address] PCP - General 05/21/11 documented as of this encounter
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
--- OUTSIDE RECORDS SUMMARY | 2024-05-09 04:24 | XMS_ITS | Encounter Summary ---
Author Organization [facility] Address [facility] [place] [address] Care Team Providers Care Affiliate Marketing Manager Name Role Phone Sari Hay MD Primary Care Provider [phone] Reason for Visit * Reason Onset Date Comments Medication Refill 04/04/2022 Encounter Details Date Type Department Care Team (Late st Contact Info) Description 04/04/2022 [place] [address] Teressa Taylor PA [facility] [address] [place] [address] Presence of right artificial knee joint Social [...] Surgery/Injury/Provider: S/P revision of total knee, left [place] 03/14/21 Medication being requested:Oxycodone Query: Last refill [...] Requested Prescription to be sent electronically to [facility] (location). Prescription prepped and pended for [place] (provider) review. The patient knows how to contact orthopaedics if any further questions or concerns occur. documented in this encounter Plan of Treatment Not on file documented as of this encounter Visit Diagnoses Diagnosis Presence of right artificial knee joint Knee joint replacement by other means documented in this encounter Care Teams Affiliate Marketing Manager Relationship Specialty Start Date End Date Sari Hay MD [facility] [address] [place] [address] PCP - General 05/21/11 documented as of this encounter
--- OUTSIDE RECORDS SUMMARY | 2024-05-09 04:24 | XMS_ITS | Encounter Summary ---
Author Organization [facility] Address [facility] [place] [address] Care Team Providers Care Attending Ambulatory Care Name Role Phone Sari Hay MD Primary Care Provider Reason for Referral * Physical Therapy (Routine) - Specialty Diagnoses / Procedures Referred By Emmanuel cisneros Referred To Contact Physical Therapy Diagnoses S/P revision of total knee, left Rod Valdez MD [facility] [place] [address] Referral ID Status Reason Start Date Expiration Date V isits Requested Visits Authorized [id number] Evaluate and Treat Non PCP 03/28/2021 09/24/2021 20 20 Reason for Visit * Reason Onset Date Comments Physical Therapy 03/28/2021 Encounter Details Date Type Department Care Team (Late st Contact Info) Description 03/28/2021 Telephone [place] [address] Robert Cornell Physical Therapy Social History Tobacco [...] requested a PT referral be sent to [facility]. A referral was generated, printed and faxed at 3:17 PM on 03/28/2021 No further questions/concerns. documented in this encounter Plan of Treatment Scheduled Referrals Name Type Priority Associated Diagnoses Orde r Schedule Referral to Physical Therapy Outpatient Referral Routine S/P revision of total knee, left [place] 03/14/21 Ordered: 03/28/2021 documented as of this encounter Visit Diagnoses Diagnosis S/P revision of total knee, left [place] 03/14/21 documented in this encounter Care Teams Attending Ambulatory Care Relationship Specialty Start Date End Date Sari Hay MD [address] [place] [address] PCP - General 05/21/11 documented as of this encounter
--- OUTSIDE RECORDS SUMMARY | 2024-05-09 04:24 | XMS_ITS | Encounter Summary ---
Author Organization [facility] Address [facility] [address] [facility] [place] [address] Care Team Providers Care Social Group Worker Name Role Phone Sari Hay MD Primary Care Provider [phone] Reason for Referral * Diagnostic Test (Emergency) - Closed Specialty Diagnoses / Procedures Referred By Contac t Referred To Contact Radiology Diagnoses S/P revision of total knee, left Procedures CT Knee wo Contrast Left (Generic) Teressa Taylor PA [facility] [address] [facility] [place] [address] Referral ID Status Reason Start Date Expiration Date V isits Requested Visits Authorized [id number] Closed Specialty Service Requested 06/21/2021 08/19/2021 1 1 Reason for Visit * Diagnostic Test (Emergency) - Closed Specialty Diagnoses / Procedures Referred By Contac t Referred To Contact Radiology Diagnoses S/P revision of total knee, left Procedures CT Knee wo Contrast Left (Generic) Teressa Taylor PA [facility] [address] [facility] [place] [address] Referral ID Status Reason Start Date Expiration Date V isits Requested Visits Authorized [id number] Closed Specialty Service Requested 06/21/2021 08/19/2021 1 1 Encounter Details Date Type Department Care Team (Latest Contact Info) Description 06/26/2021 3:17 PM EDT - 06/26/2021 11:59 PM EDT Hospital Encounter CT Scan at [facility] [place] [place] [address] Ammy Latham MD [facility] [place] [address] S/P revision of total knee, left Discharge [...] who have questions please contact the health healthcare associate that requested your imaging first. ? [...] 1 mm slice thickness are evaluated. On [employer] workstation, 3D surface rendered reformats are generated. [...] patients who have questions please contactthe health healthcare associate that requested your imaging first. Ammy Latham MD IMG CT ORDERABLES documented in this encounter Visit Diagnoses Diagnosis S/P revision of total knee, left documented in this encounter Care Teams Social Group Worker Relationship Specialty Start Date End Date Sari Hay MD [facility] [address] [facility] [place] [address] PCP - General 05/21/11 documented as of this encounter
--- OUTSIDE RECORDS SUMMARY | 2024-05-09 04:24 | XMS_ITS | Encounter Summary ---
[place] [address] Care Team Providers Care Hat Braider Name Role Phone Sari Hay MD Primary Care Provider [phone] Reason for Referral * Diagnostic Test (Routine) - Closed Specialty Diagnoses / Procedures Referred By Emmanuel cisneros Referred To Contact Radiology Diagnoses Primary osteoarthritis of right knee Positive Leona test of right knee, initial encounter Procedures MRI Knee wo Contrast Right (Generic) Gege Harrell, GANESH [facility] DR ORTHOPA[place] [address] [place] [address] Referral ID Status Reason Start Date Expiration Date V isits Requested Visits Authorized [id number] Closed Specialty Service Requested 01/22/2022 03/22/2022 1 1 Reason for Visit * Reason Comments Establish Care Right knee pian * Consultation (Routine) - Closed Specialty Diagnoses / Procedures Referred By Contbucky t Referred To Contact Orthopaedics Diagnoses R KNEE PAIN Self mail [facility] [address] [place] [address] Referral ID Status Reason Start Date Expiration Date V isits Requested Visits Authorized [id number] Closed Consult, Test & Treat 12/18/2021 12/18/2022 1 1 Encounter Details Date Type Department Care Team (Latest Contact Info) Description 01/20/2022 11:00 AM EDT Office [place] [address] Teressa Taylor PA [facility] [address] ORTHOPAED[place] [address] Primary osteoarthritis of right knee; Positive Leona [...] for medial pain and stiffness 3. 5 ([place]) LEFT TKA revision, joint infection (I&D, poly exchange) 4. 6 ([place]) LEFT TKA revision, aseptic loosening. Femur and patella retained, revised tibial component Sissy Eugene was referred from Self mail I.D.: Sissy Eugene is a 56 y.o. year old female being seen today to discuss her Right knee. Right knee pain and swelling since Nov 2021. Had pain after walking with her son. [place] like she twisted her knee. Pain is mostly medial, but a sore spot anterior and a small spot laterally too. Seen in ED recently when one of our certified legal secretary specialist staff advised her to get evaluated for concern for septic moapa kneegiven hx PJI on the other side. [...] Household Income - # People Supported - [place]ri[place], , - Race - Health Literacy - [...] that she does not use drugs. 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 ? [...] patients who have questions please contactthe health director critical care that requested your imaging first. Mitchell Early [...] mg documented in this encounter Care Teams Hat Braider Relationship Specialty Start Date End Date Sari Hay MD [address] [place] [address] PCP - General 05/21/11 documented as of this encounter
--- OUTSIDE RECORDS SUMMARY | 2024-05-09 04:24 | XMS_ITS | Encounter Summary ---
Author Organization [facility] Address [facility] [place] [address] Care Team Providers Care Cosmetic Assembler Name Role Phone Sari Hay MD Primary Care Provider [phone] Reason for Visit * Reason Onset Date Comments Knee Pain 09/10/2021 Encounter Details Date Type Department Care Team (Late st Contact Info) Description 09/10/2021 [place] [phone] Rod Valdez MD [facility] [place] [address] Knee Pain Social History Tobacco Use Types [...] get in today to be seen? P: [phone] * Telephone Encounter - Jessica Villa - [...] today. Best number to reach the caller: [phone] documented in this encounter Plan of Treatment Not on file documented as of this encounter Visit Diagnoses Not on filedocumented in this encounter Care Teams Cosmetic Assembler Relationship Specialty Start Date End Date Sari Hay MD [address] [place] [address] PCP - General 05/21/11 documented as of this encounter
--- OUTSIDE RECORDS SUMMARY | 2024-05-09 04:24 | XMS_ITS | Encounter Summary ---
Author Organization [facility] Address [facility] [address] [facility] [place] [address] Care Team Providers Care Carding Supervisor Name Role Phone Sari Hay MD Primary Care Provider [phone] Reason for Referral * Diagnostic Test (Routine) - Closed Specialty Diagnoses / Procedures Referred By Contac t Referred To Contact Radiology Diagnoses Primary osteoarthritis of right knee Positive Leona test of right knee, initial encounter Procedures MRI Knee wo Contrast Right (Generic) Gege Harrell PA [facility] DR [place] [address] [place] [address] Referral ID Status Reason Start Date Expiration Date V isits Requested Visits Authorized [id number] Closed Specialty Service Requested 01/22/2022 03/22/2022 1 1 Reason for Visit * Diagnostic Test (Routine) - Closed Specialty Diagnoses / Procedures Referred By Contac t Referred To Contact Radiology Diagnoses Primary osteoarthritis of right knee Positive Leona test of right knee, initial encounter Procedures MRI Knee wo Contrast Right (Generic) Gege Harrell PA [facility] [place] [address] [place] [address] Referral ID Status Reason Start Date Expiration Date V isits Requested Visits Authorized [id number] Closed Specialty Service Requested 01/22/2022 03/22/2022 1 1 Encounter Details Date Type Department Care Team (Latest Contact Info) Description 01/24/2022 9:47 AM EDT - 01/24/2022 11:59 PM EDT Hospital [place] [address] Mitchell Early MD [facility] DR [place] [address] Primary osteoarthritis of right knee; Positive Leona [...] who have questions please contact the health resident care manager rn that requested your imaging first. ? Electronically signed by: Lela Henley MD, [facility] ([phone]), at 01/24/2022 11:55 AM Narrative 01/24/2022 11:55 AM EDT EXAMINATION: MRI [...] patients who have questions please contactthe health resident care manager rn that requested your imaging first. Electronically signed by: Lela Henley MD, [facility]([phone]), at 01/24/2022 11:55 AM Mitchell Early MD IMG MRI ORDERABLES documented in this encounter Visit Diagnoses Diagnosis Primary osteoarthritis of right knee Primary localized osteoarthrosis, lower leg Positive Leona test of right knee, initial encounter documented in this encounter Care Teams Carding Supervisor Relationship Specialty Start Date End Date Sari Hay MD [address] [place] [address] PCP - General 05/21/11 documented as of this encounter
--- OUTSIDE RECORDS SUMMARY | 2024-05-09 04:24 | XMS_ITS | Encounter Summary ---
Author Organization [facility] Address [facility] [place] [address] Care Team Providers Care Medical Office Secretary Name Role Phone Sari Hay MD Primary Care Provider [phone] Reason for Visit * Reason Comments Pre-op Exam R TKA ([place]) Encounter Details Date Type Department Care Team (Latest Contact Info) Description 03/12/2022 9:00 AM EDT Office [place] [address] Ko Garrett MD [facility] [place] [address] Preop examination; Primary osteoarthritis of right knee [...] leg documented in this encounter Care Teams Medical Office Secretary Relationship Specialty Start Date End Date Sari Hay MD [facility] [address] [place] [address] PCP - General 05/21/11 documented as of this encounter
--- OUTSIDE RECORDS SUMMARY | 2024-05-09 04:24 | XMS_ITS | Encounter Summary ---
Author Organization Count Includes [facility] Address [facility] [place] [address] Care Team Providers Care Cold Strip Feeder Name Role Phone Sari Hay MD Primary Care Provider [phone] Encounter Details Date Type Department Care Team (Late st Contact Info) Description 04/11/2021 10:25 AM EDT - 04/11/2021 11:59 PM EDT Hospital Encounter XRay at [address] [place] [address] Rod Valdez MD [facility] [place] [address] Status post left knee replacement; Mechanical loosening [...] * XR Knee Standing Alignment AP Lat [place] Left (04/11/2021 10:51 AM EDT) Anatomical Region [...] who have questions please contact the health transitional care nurse that requested your imaging first. ? Narrative [...] patients who have questions please contactthe health transitional care nurse that requested your imaging first. Rod Valdez MD IMG DX ORDERABLES documented in this encounter Visit Diagnoses Diagnosis Status post left knee replacement Mechanical loosening of internal left knee prosthetic joint, subsequent encounter Pain of left lower extremity documented in this encounter Care Teams Cold Strip Feeder Relationship Specialty Start Date End Date Sari Hay MD [address] [place] [address] PCP - General 05/21/11 documented as of this encounter
--- OUTSIDE RECORDS SUMMARY | 2024-05-09 04:25 | XMS_ITS | Encounter Summary ---
Author Organization [facility] Address [facility] [place] [address] Care Team Providers Care Small Engine Technician Name Role Phone Sari Hay MD Primary Care Provider [phone] Reason for Visit * Auth/Cert Specialty Diagnoses / Procedures Referred By Emmanuel t Referred To Contact Diagnoses Presence of left artificial knee joint Aseptic Loosening Left TKA Procedures PRO REVISE KNEE JOINT REPLACE, ALL PARTS TOTAL KNEE REVISION ARTHROPLASTY, COMPLETE (WRVU 27.11) Referral ID Status Reason Start Date Expiration Date Visits Re quested Visits Authorized [id number] 1 1 Encounter Details Date Type Department Care Team (Late st Contact Info) Description 03/14/2021 10:09 AM EDT - 03/15/2021 2:05 PM EDT Hospital Encounter [address] [place] [address] Rod Valdez MD [facility] [place] [address] S/P revision of total knee, left [place] 03/14/21 Discharge Disposition: Home with VNA Social [...] Sissy Eugene Patient Age: 55 y.o. Language: Macanese Race: White Ethnicity: Not nor Admit date: 03/14/2021 Discharge date and time: 03/15/2021 Attending Physician: Rod Valdez MD Discharge Physician: Rod Valdez MD Follow-up Recommendations for Providers: See discharge instructions for additional details. Future Appointments Date Time Provider Department Center 04/11/2021 10:30 AM [facility] DX ROOM 1 Xray [facility] Rad 04/11/2021 11:30 AM Teressa Taylor PA [facility] ORTH 3D [facility] Inpatient Provider Contact Information: Rod Valdez MD Orthopedics: [phone] After hours and weekends, call [facility] Milk Handler, , and have the Orthopedic resident paged. Discharge Diagnoses (Hospital Problems) and Secondary Diagnoses (Chronic Problems): Active Hospital Problems Diagnosis ??? S/P revision of total knee, left [place] 03/14/21 Resolved Hospital Problems No resolved problems [...] who have questions please contact the health primary care nurse practitioner that requested your imaging first. Pending Studies [...] bowel movement. You can also take an enjx-dpe-vyiwuqg medication, Miralax if needed to combat constipation. [...] as much as possible. Call your doctor ([phone]) if you develop: 1. Fever greater than 100.5 2. Severe nausea or vomiting 3. Increasing pain that is not controlled by pain medications 4. Increasing redness, swelling, or drainage from incisions 5. Change in sensation FOLLOW-UP APPOINTMENTS: 1. You will have follow-up appointments at [facility] as indicated below in Future Appointment and Orders. 2. You will need to have x-rays prior to your follow-up appointment on 04/11/2021. Please come to Radiology, desk , 1 hour BEFORE that appointment for those x-rays. Future Appointments Date Time Provider Department Center 04/11/2021 10:30 AM [facility] DX ROOM 1 Xray [facility] Rad 04/11/2021 11:30 AM Teressa Taylor PA [facility] ORTH [address] [place] [address] If you have questions or concerns: Thursday through Thursday, 8 AM - 5 PM, please call Dr. Rod Valdez MD's office at . If it is after 5 PM, the weekend, or holidays, please call and ask to speak with theOrthopedic resident on-call. General Instructions None Future Appointments and Orders Future Appointments and Orders Future Appointments Provider Department Dept Phone 04/11/2021 10:30 AM [facility] DX ROOM 1 XRay at [facility] Arrive at: Hand Sign Writer Area [phone] Please go to Hand Sign Writer Area 3T ([place] Location). 04/11/2021 11:30 AM Teressa Taylor PA Orthopaedics at [facility] Arrive at: Hand Sign Writer Area 3D [phone] Future Orders Complete By Expires Referral to Home Health - at DISCHARGE [[id number] CPT(R)] As directed Process Instructions: Scheduling Instructions: Comments: DOCUMENTATION FOR VNA SERVICES (INCLUDING THOSE PATIENTS WITH MEDICARE COVERAGE REQUIRING HOME VNA SERVICES AND/OR HOSPICE SERVICES) Sissypradeep Eugene Discharge to own home: [address] [facility] [address] There are no phone numbers on file. Telephone Information: Tree Doctor's Name: self In discussion with the attending physician, it is certified that this patient is under their care and that they, or a nurse practitioner, clinical nurse specialist or physician's sales assistant entertainment and media who is working directly with them, had [...] for services as follows: Home Health Agency: [facility] PHONE: [phone] FAX: [phone] Home care orders for Total Hip Replacements w PT services only. Correction(SN) eval if indicated on admission visit 1. [...] from this patient's PCP: Sari Hay MD [facility] [address] [place] [address] All A agencies which cover the area of patient's residence have been reviewed, either verbally shaun writing, and patient/family have chosen the home health care agency as noted for home services. Questions: Agency name and contact information: [facility] Patient location post discharge: Home What services are requested: Physical Therapy Occupational Therapy Start date: Responsible MD post discharge contact info: PCP Primary Care Provider: Sari Hay MD [phone] Discharge References/Attachments None documented in this encounter [...] bowel movement. You can also take an sojp-yhd-zlvhvpv medication, Miralax if needed to combat constipation. [...] as much as possible. Call your doctor ([phone]) if you develop: 1. Fever greater than 100.5 2. Severe nausea or vomiting 3. Increasing pain that is not controlled by pain medications 4. Increasing redness, swelling, or drainage from incisions 5. Change in sensation FOLLOW-UP APPOINTMENTS: 1. You will have follow-up appointments at [facility] as indicated below in Future Appointment and Orders. 2. You will need to have x-rays prior to your follow-up appointment on 04/11/2021. Please come to Radiology, desk 3T, 1 hour BEFORE that appointment for those x-rays. Future Appointments Date Time Provider Department Center 04/11/2021 10:30 AM [facility] DX ROOM 1 MH Xray [facility] Rad 04/11/2021 11:30 AM Teressa Taylor PA [facility] ORTH 3D [facility] If you have questions or concerns: Thursday [...] will monitor till d/c. Cas Schulz OTR/L 4362 Pager: [phone] CAS SCHULZ OT 03/15/2021 Occupational Therapy Rehabilitation Department * Corine Hu RN - 03/15/2021 10:44 AM EDT The patient/inside outside sales representative has been provided a list of Home Health Agencies/DME vendors which servetheir preferred geographic area. A letter describing our affiliations was reviewed with them and they were educated about their right to choose where referrals are placed. Provided patient with [facility] Star Quality Rating for Home care . Patient requests referral to: [facility] [employer]. PHONE: [phone] FAX: [phone] . Expected date of discharge: 03/15/2021 Referral routed to the Hydrogenation Operator for matching with agency/vendor and to [...] EACH performed by Stanley Koo MD at [facility] ??? PRO REVISE KNEE JOINT REPLACE, 1 PART Left 02/10/2019 @TOTAL KNEE REVISION ARTHROPLASTY, ONE COMPONENT (WRVU 21.12) performed by Rod Valdez MD [facility] MAIN OR ??? PRO XFER SINGLE SUPERFICI LOW LEG TENDON Left 10/01/2015 TENDON TRANSFER, ANKLE, SUPERFICIAL performed by Stanley Koo MD at [facility] ??? 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 Pt was [...] plan of care. JANE TAVARES, PT Pager [phone] * Kenneth De Leon MD - 03/15/2021 [...] Time Provider Department Center 04/11/2021 10:30 AM [facility] DX ROOM 1 MH Xray [facility] Rad 04/11/2021 11:30 AM Teressa Taylor, PA [facility] ORTH 3D [facility] * Mayuri Pearce MD - 03/14/2021 7:52 [...] ??? S/P revision of total knee, left [place] 03/14/21 Resolved Hospital Problems No resolved problems [...] Time Provider Department Center 04/11/2021 10:30 AM [facility] DX ROOM 1 MH Xray [facility] Rad 04/11/2021 11:30 AM Teressa Taylor PA [facility] ORTH 3D [facility] * Sb Roca RN - 03/14/2021 6:26 [...] Operative Note Patient Name: Sissy Eugene : [id number] MR#: [id number] Case Date: 03/14/2021 Surgeon: Surgeon(s) and Role: [...] Valdez MD - 03/14/2021 2:09 PM EDT [facility] Operative Note Patient Name: Sissy Eugene : [id number] MR#: [id number] Case Date: 03/14/2021 Surgeon: Surgeon(s) and Role: * Rod Vadlez MD - Primary * Kenneth De Leon MD - Resident Preoperative diagnosis: Aseptic Loosening Left TKA Postoperative diagnosis: Aseptic Loosening Left TKA Procedure(s) (LRB): TOTAL KNEE REVISION ARTHROPLASTY, ONE COMPONENT (WRVU 21.12) (Left) Anesthesia: Spinal Estimated Blood Loss: 400 mL Specimens removed during surgery: Joint fluid sent for cell count and culture; implants sent to [facility] Drains: * No LDAs found * [...] and this was marked with a green kalispel. An adductor canal block was placed for [...] the implants were openedand assembled according to nursery school attendant instructions. 2 x 40 g bags of [...] Implant Name Type Inv. Item Serial No. Lease Operator Lot No. LRB No. Used Action CEMENT BONE HIGH VISCOSITY 40GM GENTAMICIN SINGLE DOSE PMMA ([id number]) - [id number] IMPLANTS CEMENT BONE HIGH VISCOSITY 40GM GENTAMICIN SINGLE DOSE PMMA ([id number]) Cool Containers SHAI [id number] Left 1 Implanted CEMENT BONE HIGH VISCOSITY 40GM GENTAMICIN SINGLE DOSE PMMA ([id number]) - [id number] IMPLANTS CEMENT BONE HIGH VISCOSITY 40GM GENTAMICIN SINGLE DOSE PMMA ([id number]) Cool Containers SHAI [id number] Left 1 Implanted Isa persona stem extension [id number] Left 1 Implanted Isa Persona Left PS poly 12mm ISA BIOMET - [id number] Left 1 Implanted Isa Persona Fixed Tibia left size F ISA BIOMET - [id number] Left 1 Implanted documented in this encounter Plan of Treatment Not on file documented as of this encounter Procedures Procedure Name Priority Date/Time Associated Diagnosis Comments HEMOGRAM Routine 03/15/2021 2:21 AM EDT DIFFERENTIAL, AUTOMATED Routine 03/15/2021 2:21 AM EDT HC VENIPUNCTURE Routine 03/15/2021 2:21 AM EDT BASIC METABOLIC PANEL Routine 03/15/2021 2:21 AM EDT XR KNEE AP & LAT LEFT Routine 03/14/2021 5:42 PM EDT TOTAL KNEE REVISION ARTHROPLASTY, ONE COMPONENT Routine 03/14/2021 4:31 PM EDT HC BODY FLUID CELL CT W/DIFF STAT 03/14/2021 2:15 PM EDT Revise Knee Joint Replace, 1 Part (14833) 03/14/2021 1:45 PM EDT Aseptic Loosening Left TKA IMPLANTABLE DEVICES SCAN 03/14/2021 12:00 AM EDT documented in this encounter Results * (ABNORMAL) Differential, Automated (03/15/2021 2:21 AM EDT) Neutrophil % 85.4 % [facility] Neutrophil Absolute 10.75(H) 1.70 - 6.10 x10(3)/ L [facility] Lymph % 9.1 % [facility] Lymphocytes Abs 1.1 0.9 - 3.2 x10(3)/ L [facility] Monocyte % 4.9 % [facility] Monocyte Abs 0.6 0.3 - 0.9 x10(3)/[facility] Eos % 0.0 % [facility] Eosinophils Abs 0.0 0.0 - 0.4 x10(3)/[facility] Basophil % 0.2 % [facility] Baso Absolute 0.0 0.0 - 0.1 x10(3)/[facility] Immature Gran % 0.40 % [facility] Comment: Immature granulocytes(IG's)percentage and absolute count will include metamyelocytes, myelocytes, and promyelocytes. Blood smears from CBCs yielding IG's will be scanned manually for concordance. If this scan disagrees with the automated IG or if promyelocytes are noted, a manual differential will be performed. Immature Gran Absolute 0.05(H) 0.00 - 0.04 x10(3)/[facility] Blood 03/15/2021 2:21 AM EDT 03/15/2021 2:38 AM EDT Narrative Resulting Agency Comment Spec In Lab Kenneth De Leon MD HEMATOLOGY ORDERABLE S [facility] [place] [address] * (ABNORMAL) Hemogram (03/15/2021 2:21 AM EDT) White Blood Cell 12.6(H) 4.0 - 9.5 x10(3)/mc L [facility] Red Blood Cell 3.93(L) 4.00 - 5.21 x10(6)/mc L [facility] Hemoglobin 11.6(L) 11.7 - 15.5 gm/dL [facility] Hematocrit 35.2(L) 35.7 - 45.8 % [facility] Mean Cell Volume 89.6 82.6 - 94.4 fL [facility] Mean Cell Hemoglobin 29.5 27.1 - 32.0 pg [facility] Mean Cell Hemoglobin Concentration 33.0 31.7 - 35.0 gm/dL [facility] Platelet 237 145 - 357 x10(3)/[facility] RDW Standard Deviation 39.7 37.0 - 46.0 [facility] RDW coefficient of variation 12.1 11.5 - 14.1 % [facility] Mean Platelet Volume 10.2 7.6 - 12.9 [facility] NRBC% auto 0.0 % [facility] NRBC Absolute 0.000 0.000 - 0.000 x10(3)/[facility] Blood 03/15/2021 2:21 AM EDT 03/15/2021 2:38 AM EDT Narrative Resulting Agency Comment Spec In Lab Kenneth De Leon MD HEMATOLOGY ORDERABLE S [facility] [place] [address] * Basic Metabolic Panel (non-fasting) (03/15/2021 2:21 AM EDT) Glucose 132 65 - 199 mg/dL [facility] Comment:Diabetes: >=200 mg/d L plus symptoms Blood Urea Nitrogen 14 8 - 18 mg/dL [facility] Creatinine 0.76 0.70 - 1.20 mg/dL [facility] Sodium 138 135 - 145 mmol/L [facility] Potassium 4.2 3.5 - 5.0 mmol/L [facility] Comment: Please note: ??Patients with WBC >100,000 may have falsely elevated Potassium levels. ??For accurate Potassium quantification in these patients send serum separator tube (gold top) for subsequent determinations. ??Contact the Clinical Chemistry Laboratory if there are any questions. Chloride 105 98 - 107 mmol/L [facility] Carbon Dioxide 24 22 - 31 mmol/L [facility] Anion Gap 9 5 - 15 mmol/L [facility] Calcium 8.9 8.5 - 10.5 mg/dL [facility] Est Glomerular Filtration Rate 87 >=60 mL/min/1. 73 m?? [facility] Comment: This patient? [...] In Lab Rod Valdez MD CHEMISTRY ORDERABLES [facility] [place] [address] * XR Knee 1-2 Views Left (Generic) [...] who have questions please contact the health primary care nurse practitioner that requested your imaging first. ? [...] patients who have questions please contactthe health primary care nurse practitioner that requested your imaging first. Rod Valdez MD IMG DX ORDERABLES * Cell Count Body Fluid Knee, Left (03/14/2021 2:15 PM EDT) Body Fluid Source Knee, Left [facility] Color, Fld Yellow [facility] Appearance, Fld Clear [facility] WBC Count, Fld 103 /mcl [facility] Comment: Guideline listed below [...] by Nuha Garcia; Called at 03-14-21 14:43. Polymorphonuclear cells BF % 13 % [facility] Comment: Polymorphonuclear cell percent and absolute values may contain Neutrophils, Eosinophils, and Basophils. Body fluid smear will be scanned manually for concordance. Mononuclear cells BF % 87 % [facility] Comment: Mononuclear cell percent and absolute values may contain Lymphocytes and Monocytes. Body fluid smear will be scanned manually for concordance. Polymorphonuclear cells BF ABS 13 /[facility] Comment: Polymorphonuclear cell percent and absolute values may contain Neutrophils, Eosinophils, and Basophils. Body fluid smear will be scanned manually for concordance. Mononuclear cells BF ABS 90 /[facility] Comment: Mononuclear cell percent and absolute values may contain Lymphocytes and Monocytes. Body fluid smear will be scanned manually for concordance. Knee, Left 03/14/2021 2:15 PM EDT 03/14/2021 2:22 PM EDT Narrative Resulting Agency Comment Spec In Lab Rod Valdez MD BODY FLUIDS AND STOO LS ORDERABLES [facility] [place] [address] * SCAN DOC: IMPLANTABLE DEVICES (03/14/2021 12:00 AM EDT) Narrative 03/14/2021 12:00 AM EDT Ordered by an unspecified provider. Scanning Provider MEDIA MGR SCAN EXT O RDR/RSLT documented in this encounter Visit Diagnoses Diagnosis S/P revision of total knee, left [place] 03/14/21 S/P revision of total knee, left [place] 03/14/21 documented in this encounter Administered Medications [...] of Procedure), Routine 1207 (Given - Provider: Palbo Phan RN) ondansetron (pf) (Zofran) (2 mg/mL) [...] Unit) documented in this encounter Care Teams Small Engine Technician Relationship Specialty Start Date End Date Sari Hay MD [facility] [address] [place] [address] PCP - General 05/21/11 documented as of this encounter
--- OUTSIDE RECORDS SUMMARY | 2024-05-09 04:25 | XMS_ITS | Encounter Summary ---
Author Organization [facility] Address [facility] [place] [address] Care Team Providers Care Communications Controller Name Role Phone Sari Hay MD Primary Care Provider [phone] Encounter Details Date Type Department Care Team (Latest Contact Info) Description 11/29/2019 10:06 AM EST - 11/29/2019 11:59 PM [facility] Hospital Encounter XRay at [address] [place] [address] Celeste Hu APRN [facility] [place] [address] Closed Colles' fracture of left radius with [...] number below. Electronically signed by: Annette Pereira [facility]([phone]), at 11/29/2019 2:18 PM Rod Valdez MD IMG DX ORDERABLES * [...] the number below. ? Electronically signed by: Annetet Pereira [facility] ([phone]), at 11/29/2019 2:10 PM Narrative 11/29/2019 2:10 [...] number below. Electronically signed by: Annette Pereira [facility]([phone]), at 11/29/2019 2:10 PM Ecleste A Fritz [employer] DEV[employer] IMG DX ORDERABLES documented in this encounter Visit Diagnoses Diagnosis Closed Colles' fracture of left radius with routine healing, subsequent encounter Presence of left artificial knee joint Knee joint replacement by other means documented in this encounter Care Teams Communications Controller Relationship Specialty Start Date End Date Sari Hay MD [address] [facility] [address] [place] [address] PCP - General 05/21/11 documented as of this encounter
--- OUTSIDE RECORDS SUMMARY | 2024-05-09 04:25 | XMS_ITS | Encounter Summary ---
Author Organization [facility] Address [facility] [place] [address] Care Team Providers Care Mucker Operator Name Role Phone Sari Hay MD Primary Care Provider [phone] Reason for Visit * Reason Comments Pre-op Exam CASE REQ 03/14/21 REV ISION LEFT TKA Encounter Details Date Type Department Care Team (Late st Contact Info) Description 03/06/2021 11:00 AM EDT [place] [address] Rod Valdez MD [facility] [place] [address] Mechanical loosening of internal left knee prosthetic [...] where referrals are placed patient lives in [place], no preference on VNA. The patient prefers [...] each documented in this encounter Care Teams Mucker Operator Relationship Specialty Start Date End Date Sari Hay MD [address] [place] [address] PCP - General 05/21/11 documented as of this encounter
--- OUTSIDE RECORDS SUMMARY | 2024-05-09 04:25 | XMS_ITS | Encounter Summary ---
Author Organization Formerly [facility], Later [facility] Address [facility] [place] [address] Care Team Providers Care Marketing Director Assisted Living Name Role Phone Sari Hay MD Primary Care Provider [phone] Reason for Visit * Reason Comments Follow-up L Distal Radius Fx: 09/05/2019, Left Knee Pain and stiffness, Possi ble infection? Encounter Details Date Type Department Care Team (Late st Contact Info) Description 11/29/2019 11:15 AM EST [place] [phone] Le, GANESH Proctor [facility] [place] [address] Status post left knee replacement; Acute pain [...] NAME: Sissy Eugene AGE: 54 y.o. MR#: [id number] DATE OF VISIT: 11/29/2019 CHIEF COMPLAINT: left [...] EST) Anaerobic Culture No anaerobic organisms isolated [facility] Knee joint synovial fluid (specimen) 11/29/2019 12:00 PM EST 11/29/2019 2:04 PM EST Comment:PLEASE HOLD CULTURE FOR 14 DAYS Narrative Resulting Agency Comment Spec In Lab Trice ANDERSEN MICROBIOLOGY - GENER AL ORDERABLES [facility] [place] [address] * Body Fluid Culture, Aerobic (11/29/2019 12:00 PM EST) Body Fluid Culture No growth at 14 days. [facility] Gram Stain Cytocentrifuge Gram Stain performed No Neutrophils seen. No microorganisms seen. [facility] Knee joint synovial fluid (specimen) 11/29/2019 12:00 PM EST 11/29/2019 2:04 PM EST Comment:PLEASE HOLD CULTURE FOR 14 DAYS Narrative Resulting Agency Comment Spec In Lab Trice ANDERSEN MICROBIOLOGY - GENER AL ORDERABLES [facility] [place] [address] * Crystal Exam Body Fluid (11/29/2019 12:00 PM EST) Crystal BF Type Knee fluid Lt [facility] Crystal Exam, Fld None Seen [facility] Specimen from lower limb (specimen) 11/29/2019 12:00 PM EST 11/29/2019 1:52 PM EST Narrative Resulting Agency Comment Spec In Lab Karen Nixon MD BODY FLUIDS AND STO OLS ORDERABLES [facility] [place] [address] * Cell Count Body Fluid (11/29/2019 12:00 PM EST) Body Fluid Source Knee, Left M [facility] Color, Fld Clinch [facility] Appearance, Fld Slightly Cloudy [facility] WBC Count, Fld 153 /mcl [facility] Comment: Guideline listed below apply to all body fluids. Differentials on BAL specimens are performed by the Cytology lab section. When Body Fluid WBC count is greater than Zero, a smear is made and scanned. All scan information is correlated with numeric results prior to being released to patients chart. Polymorphonuclear cells BF % 16 % [facility] Comment: Polymorphonuclear cell percent and absolute values may contain Neutrophils, Eosinophils, and Basophils. Body fluid smear will be scanned manually for concordance. Mononuclear cells BF % 84 % [facility] Comment: Mononuclear cell percent and absolute values may contain Lymphocytes and Monocytes. Body fluid smear will be scanned manually for concordance. Polymorphonuclear cells BF ABS 25 /[facility] Comment: Polymorphonuclear cell percent and absolute values may contain Neutrophils, Eosinophils, and Basophils. Body fluid smear will be scanned manually for concordance. Mononuclear cells BF ABS 128 /[facility] Comment: Mononuclear cell percent and absolute values may contain Lymphocytes and Monocytes. Body fluid smear will be scanned manually for concordance. Specimen from lower limb (specimen) 11/29/2019 12:00 PM EST 11/29/2019 1:52 PM EST Narrative Resulting Agency Comment Spec In Lab Karen Nixon MD BODY FLUIDS AND STO OLS ORDERABLES [facility] [place] [address] documented in this encounter Visit Diagnoses Diagnosis [...] mg documented in this encounter Care Teams Marketing Director Assisted Living Relationship Specialty Start Date End Date Sari Hay MD [address] [place] [address] PCP - General 05/21/11 documented as of this encounter
--- OUTSIDE RECORDS SUMMARY | 2024-05-09 04:25 | XMS_ITS | Encounter Summary ---
[facility] [place] [address] Care Team Providers Care Cook Specialty Foreign Food Name Role Phone Sari Hay MD Primary Care Provider [phone] Encounter Details Date Type Department Care Team (Latest Contact Info) Description 11/29/2019 10:10 AM EST Laboratory Appointment Lab [address] [place] [address] Infection associated with internal right knee prosthesis, [...] * Differential, Automated (11/29/2019 10:02 AM EST) Neutrophil % 49.8 % [facility] Neutrophil Absolute 3.05 1.70 - 6.10 x10(3)/[facility] Lymph % 37.4 % [facility] Lymphocytes Abs 2.3 0.9 - 3.2 x10(3)/[facility] Monocyte % 8.2 % [facility] Monocyte Abs 0.5 0.3 - 0.9 x10(3)/[facility] Eos % 3.4 % [facility] Eosinophils Abs 0.2 0.0 - 0.4 x10(3)/[facility] Basophil % 1.0 % [facility] Baso Absolute 0.1 0.0 - 0.1 x10(3)/[facility] Immature Gran % 0.20 % [facility] Comment: Immature granulocytes(IG's)percentage and absolute count will include metamyelocytes, myelocytes, and promyelocytes. Blood smears from CBCs yielding IG's will be scanned manually for concordance. If this scan disagrees with the automated IG or if promyelocytes are noted, a manual differential will be performed. Immature Gran Absolute 0.01 0.00 - 0.04 x10(3)/[facility] Blood specimen (specimen) 11/29/2019 10:02 AM EST 11/29/2019 10:17 AM EST Narrative Resulting Agency Comment Spec In Lab Rod Valdez MD HEMATOLOGY ORDERABLE S [facility] [place] [address] * Hemogram (11/29/2019 10:02 AM EST) White Blood Cell 6.1 4.0 - 9.5 x10(3)/[facility] Red Blood Cell 4.85 4.00 - 5.21 x10(6)/[facility] Hemoglobin 14.6 11.7 - 15.5 gm/dL [facility] Hematocrit 44.4 35.7 - 45.8 % [facility] Mean Cell Volume 91.5 82.6 - 94.4 fL [facility] Mean Cell Hemoglobin 30.1 27.1 - 32.0 pg [facility] Mean Cell Hemoglobin Concentration 32.9 31.7 - 35.0 gm/dL [facility] Platelet 245 145 - 357 x10(3)/[facility] RDW Standard Deviation 40.3 37.0 - 46.0 fL [facility] RDW coefficient of variation 12.0 11.5 - 14.1 % [facility] Mean Platelet Volume 10.2 7.6 - 12.9 fL [facility] NRBC% auto 0.0 % [facility] NRBC Absolute 0.000 0.000 - 0.000 x10(3)/[facility] Blood specimen (specimen) 11/29/2019 10:02 AM EST 11/29/2019 10:17 AM EST Narrative Resulting Agency Comment Spec In Lab Rod Valdez MD HEMATOLOGY ORDERABLE S [facility] [place] [address] * Sedimentation rate (11/29/2019 10:02 AM EST) Sedimentation Rate Automated 11 2 - 39 mm/hr [facility] Comment: Effective September 14, 2019 new capillary photometric technology has resulted in a change in reference ranges. It is recommended that each ESR result be reviewed with its own age appropriate reference range. Blood specimen (specimen) 11/29/2019 10:02 AM EST 11/29/2019 10:17 AM EST Narrative Resulting Agency Comment Spec In Lab Rod Valdez MD HEMATOLOGY ORDERABLE S Performing Organization Address City/[facility]/ZIP Co de Phone Number [facility] [place] [address] * CRP, acute inflammation (11/29/2019 10:02 AM EST) C-Reactive Protein 1.5 <=4.9 mg/L [facility] Blood specimen (specimen) 11/29/2019 10:02 AM EST 11/29/2019 10:17 AM EST Narrative Resulting Agency Comment Spec In Lab Rod Valdez MD CHEMISTRY ORDERABLES Performing Organization Address [facility] Co de Phone Number [facility] [place] [address] documented in this encounter Visit Diagnoses Diagnosis Infection associated with internal right knee prosthesis, subsequent encounter documented in this encounter Care Teams Cook Specialty Foreign Food Relationship Specialty Start Date End Date Sari Hay MD [facility] [address] [place] [address] PCP - General 05/21/11 documented as of this encounter
--- OUTSIDE RECORDS SUMMARY | 2024-05-09 04:25 | XMS_ITS | Encounter Summary ---
Author Organization [facility] Address [facility] [place] [address] Care Team Providers Care Seat Cover Maker Name Role Phone Sari Hay MD Primary Care Provider [phone] Encounter Details Date Type Department Care Team (Late st Contact Info) Description 10/25/2019 Orders [place] [address] Mitchell Early MD [facility] [place] [address] Closed Colles' fracture of left radius with [...] number below. Electronically signed by: PEDRO Jimenez [facility] ([phone]),at 10/28/2019 10:48 AM Mitchell Early MD IMG DX ORDERABLES documented in this encounter Visit Diagnoses Diagnosis Closed Colles' fracture of left radius with routine healing, subsequent encounter Closed Colles' fracture of left radius with routine healing, subsequent encounter documented in this encounter Care Teams Seat Cover Maker Relationship Specialty Start Date End Date Sari Hay MD [address] [place] [address] PCP - General 05/21/11 documented as of this encounter
--- OUTSIDE RECORDS SUMMARY | 2024-05-09 04:25 | XMS_ITS | Encounter Summary ---
Author Organization [facility] [place] [address] Care Team Providers Care Knife Cutter Name Role Phone Sari Hay MD Primary Care Provider [phone] Encounter Details Date Type Department Care Team (Late st Contact Info) Description 03/05/2021 2:00 PM EDT [place] [address] Social History Tobacco Use Types Packs/Day Years [...] on filedocumented in this encounter Care Teams Knife Cutter Relationship Specialty Start Date End Date Sari Hay MD [address] [place] [address] PCP - General 05/21/11 documented as of this encounter
--- OUTSIDE RECORDS SUMMARY | 2024-05-09 04:25 | XMS_ITS | Encounter Summary ---
Author Organization [facility] Address [facility] [place] [address] Care Team Providers Care Pan Tank Worker Name Role Phone Sari Hay MD Primary Care Provider [phone] Encounter Details Date Type Department Care Team (Late st Contact Info) Description 04/03/2020 Orders [place] [address] Spenser Hdz MD [facility] [place] [address] Hammer toe of left foot Social History [...] foot documented in this encounter Care Teams Pan Tank Worker Relationship Specialty Start Date End Date Sari Hay MD [address] [place] [address] PCP - General 05/21/11 documented as of this encounter
--- OUTSIDE RECORDS SUMMARY | 2024-05-09 04:25 | XMS_ITS | Encounter Summary ---
Author Organization Formerly [facility] Address [facility] [place] [address] Care Team Providers Care Master Of Ceremonies Name Role Phone Sari Hay MD Primary Care Provider [phone] Encounter Details Date Type Department Care Team (Latest Contact Info) Description 01/04/2021 3:30 PM EDT TH Visit (TeleHealth) [place] [address] Teressa Taylor PA [facility] [place] [address] Acute pain of left knee Social History [...] PA - 01/04/2021 3:30 PM EDT Today Ana Rosa had a phone visit today, however the only phone number listed [phone] told me thatthis phone number was not accepting phone calls at this time Teressa Taylor PA-C Call returned by Ana Rosa. Risk of infection ROM improvement When to schedule Knee replacement documented in this encounter Plan of Treatment Not on file documented as of this encounter Visit Diagnoses Diagnosis Acute pain of left knee documented in this encounter Care Teams Master Of Ceremonies Relationship Specialty Start Date End Date Sari Hay MD [facility] [address] [facility] [address] [place] [address] PCP - General 05/21/11 documented as of this encounter
--- OUTSIDE RECORDS SUMMARY | 2024-05-09 04:25 | XMS_ITS | Encounter Summary ---
Author Organization [facility] Address [facility] [place] [address] Care Team Providers Care Hedis Specialist Name Role Phone Sari Hay MD Primary Care Provider [phone] Encounter Details Date Type Department Care Team (Latest Contact Info) Description 04/04/2020 11:36 AM EDT - 04/04/2020 11:59 PM EDT Hospital Encounter XRay at [address] [place] [address] Spenser Hdz MD [facility] [place] [address] Hammer toe of left foot Discharge Disposition: [...] below. ? Electronically signed by: Annette Pereira [facility] ([phone]), at 04/04/2020 12:54 PM Narrative 04/04/2020 12:54 PM EDT EXAMINATION: XR [...] number below. Electronically signed by: Annette Pereira [facility]([phone]), at 04/04/2020 12:54 PM Spenser Hdz MD IMG DX ORDERABLES documented in this encounter Visit Diagnoses Diagnosis Hammer toe of left foot documented in this encounter Care Teams Hedis Specialist Relationship Specialty Start Date End Date Sari Hay MD [address] [place] [address] PCP - General 05/21/11 documented as of this encounter
--- OUTSIDE RECORDS SUMMARY | 2024-05-09 04:25 | XMS_ITS | Encounter Summary ---
Author Organization Former[facility] Address [facility] [place] [address] Care Team Providers Care Budget Coordinator Name Role Phone Sari Hay MD Primary Care Provider [phone] Encounter Details Date Type Department Care Team (Late st Contact Info) Description 11/28/2019 [place] [address] Rod Valdez MD [facility] [place] [address] Infection associated with internal right knee prosthesis, [...] AM EST) C-Reactive Protein 1.5 <=4.9 mg/L [facility] Blood specimen (specimen) 11/29/2019 10:02 AM EST 11/29/2019 10:17 AM EST Narrative Resulting Agency Comment Spec In Lab Rod Valdez MD CHEMISTRY ORDERABLES Performing Organization Address City/[facility]/ZIP Co de Phone Number [facility] [place] [address] * Sedimentation rate (11/29/2019 10:02 AM EST) Sedimentation Rate Automated 11 2 - 39 mm/hr [facility] Comment: Effective September 14, 2019 new capillary photometric technology has resulted in a change in reference ranges. It is recommended that each ESR result be reviewed with its own age appropriate reference range. Blood specimen (specimen) 11/29/2019 10:02 AM EST 11/29/2019 10:17 AM EST Narrative Resulting Agency Comment Spec In Lab Rod Valdez MD HEMATOLOGY ORDERABLE S Performing Organization Address [facility] Co de Phone Number [facility] [place] [address] documented in this encounter Visit Diagnoses Diagnosis Infection associated with internal right knee prosthesis, subsequent encounter documented in this encounter Care Teams Budget Coordinator Relationship Specialty Start Date End Date Sari Hay MD [address] [place] [address] PCP - General 05/21/11 documented as of this encounter
--- OUTSIDE RECORDS SUMMARY | 2024-05-09 04:25 | XMS_ITS | Encounter Summary ---
Author Organization Formerly [facility] Address [facility] [address] Care Team Providers Care Drapery Counselor Name Role Phone Sari Hay MD Primary Care Provider [phone] Encounter Details Date Type Department Care Team (Latest Contact Info) Description 10/28/2019 10:21 AM EST - 10/28/2019 11:59 PM [facility] Hospital Encounter XRay at [address] [place] [address] Closed Colles' fracture of left radius with [...] below. Electronically signed by: PEDRO Jimenez [facility] [place] [facility] ([phone]),at 10/28/2019 10:48 AM Mitchell Early MD IMG DX ORDERABLES documented in this encounter Visit Diagnoses Diagnosis Closed Colles' fracture of left radius with routine healing, subsequent encounter documented in this encounter Care Teams Drapery Counselor Relationship Specialty Start Date End Date Sari Hay MD [address] [place] [address] PCP - General 05/21/11 documented as of this encounter
--- OUTSIDE RECORDS SUMMARY | 2024-05-09 04:25 | XMS_ITS | Encounter Summary ---
Author Organization [facility] Address [facility] [place] [address] Care Team Providers Care Project Hire Name Role Phone Sari Hay MD Primary Care Provider [phone] Encounter Details Date Type Department Care Team (Late st Contact Info) Description 09/05/2020 Orders [place] [address] Rod Valdez MD [facility] [place] [address] Status post left knee replacement (Primary Dx) [...] XR Knee Standing Alignment AP Lat [place] Left (09/12/2020 4:06 PM EST) Anatomical Region [...] ? Electronically signed by: DEZ TAPIA DO, [facility] ([phone]), at 09/12/2020 4:18 PM Narrative 09/12/2020 4:18 [...] below. Electronically signed by: DEZ TAPIA DO [facility]([phone]), at 09/12/2020 4:18 PM Rod Valdez MD IMG DX ORDERABLES documented in this encounter Visit Diagnoses Diagnosis Status post left knee replacement- Primary Status post left knee replacement documented in this encounter Care Teams Project Hire Relationship Specialty Start Date End Date Sari Hay MD [address] [place] [address] PCP - General 05/21/11 documented as of this encounter
--- OUTSIDE RECORDS SUMMARY | 2024-05-09 04:25 | XMS_ITS | Encounter Summary ---
Author Organization [facility] [place] [address] Care Team Providers Care Commercial Loan Reviewer Name Role Phone Sari Hay MD Primary Care Provider Reason for Visit * Reason Onset Date Comments Questions 03/13/2021 Encounter Details Date Type Department Care Team (Late st Contact Info) Description 03/13/2021 Telephone [place] [address] Robert Cornell Questions Social History Tobacco Use [...] she can have her medications sent to [facility] for easy pick-up. Finally she will be receiving a call later today with instructions regarding her surgery tomorrow. She understands and agrees with this plan. P: [phone] Crutches ordered documented in this encounter Plan of Treatment Not on file documented as of this encounter Visit Diagnoses Diagnosis Mechanical loosening of internal left knee prosthetic joint, subsequent encounter documented in this encounter Care Teams Commercial Loan Reviewer Relationship Specialty Start Date End Date Sari Hay MD [address] [place] [address] PCP - General 05/21/11 documented as of this encounter
--- OUTSIDE RECORDS SUMMARY | 2024-05-09 04:25 | XMS_ITS | Encounter Summary ---
Author Organization [facility] Address [facility] [place] [address] Care Team Providers Care Natural Resource Manager Name Role Phone Sari Hay MD Primary Care Provider [phone] Encounter Details Date Type Department Care Team (Late st Contact Info) Description 01/04/2021 Orders [place] [address] Rod Valdez MD [facility] [place] [address] Status post left knee replacement; Mechanical loosening [...] * XR Knee Standing Alignment AP Lat [place] Left (04/11/2021 10:51 AM EDT) Anatomical Region [...] have questions please contact the health home health care coordinator that requested your imaging first. ? Electronically signed by: Lela Henley MD, [facility] ([phone]), at 04/11/2021 2:53 PM Narrative 04/11/2021 2:53 [...] who have questions please contactthe health home health care coordinator that requested your imaging first. Electronically signed by: Lela Henley MD, [facility]([phone]), at 04/11/2021 2:53 PM Rod Valdez MD IMG DX ORDERABLES * APTT (03/05/2021 2:39 PM EDT) [facility] Partial Thromboplastin Time 32 25 - [address] [facility] Comment: The PTT is NOT appropriate for heparin monitoring. Use the Anti-Xa level for heparin monitoring (HEP UFH) or LMWH monitoring (HEP LMW). A PTT less than 37 seconds generally indicates adequate hemostasis. Blood 03/05/2021 2:39 PM EDT 03/05/2021 2:50 PM EDT Narrative Resulting Agency Comment Spec In Lab Rod Valdez MD HEMATOLOGY ORDERABLE S Performing Organization Address [facility] de Phone Number [facility] [place] [place] [address] * Prothrombin Time (03/05/2021 2:39 PM EDT) Prothrombin Time 10.7 9.4 - 12.[address] [facility] International Normalization Ratio 0.9 [facility] Comment: An INR [...] MD HEMATOLOGY ORDERABLE S Performing Organization Address [facility] de Phone Number [facility] [place] [place] [address] * (ABNORMAL) Basic Metabolic Panel (non-fasting) (03/05/2021 2:39 PM EDT) Glucose 89 65 - 199 mg/dL [facility] Comment:Diabetes: >=200 mg/d L plus symptoms Blood Urea Nitrogen 19(H) 8 - 18 mg/dL [facility] Creatinine 0.78 0.70 - 1.20 mg/dL [facility] Sodium 143 135 - 145 mmol/L [facility] Potassium 4.8 3.5 - 5.0 mmol/L [facility] Comment: Please note: ??Patients with WBC >100,000 may have falsely elevated Potassium levels. ??For accurate Potassium quantification in these patients send serum separator tube (gold top) for subsequent determinations. ??Contact the Clinical Chemistry Laboratory if there are any questions. Chloride 106 98 - 107 mmol/L [facility] Carbon Dioxide 28 22 - 31 mmol/L [facility] Anion Gap 9 5 - 15 mmol/L [facility] Calcium 10.1 8.5 - 10.5 mg/dL [facility] Est Glomerular Filtration Rate 84 >=60 mL/min/1. 73 m?? [facility] Comment: This patient? s estimated [...] Valdez MD CHEMISTRY ORDERABLES Performing Organization Address City/State/[facility] Co de Phone Number [facility] [place] [place] [address] documented in this encounter Visit Diagnoses Diagnosis Status post left knee replacement Mechanical loosening of internal left knee prosthetic joint, subsequent encounter Pain of left lower extremity Status post left knee replacement Mechanical loosening of internal left knee prosthetic joint, subsequent encounter Pain of left lower extremity documented in this encounter Care Teams Natural Resource Manager Relationship Specialty Start Date End Date Sari Hay MD [address] [place] [address] PCP - General 05/21/11 documented as of this encounter
--- OUTSIDE RECORDS SUMMARY | 2024-05-09 04:25 | XMS_ITS | Encounter Summary ---
Author Organization [facility] Address [facility] [place] [address] Care Team Providers Care Soil Sampler Name Role Phone Sari Hay MD Primary Care Provider [phone] Encounter Details Date Type Department Care Team (Late st Contact Info) Description 09/12/2020 3:36 PM EST - 09/12/2020 11:59 PM [facility] Hospital Encounter XRay at [address] [place] [address] Rod Valdez MD [facility] [place] [address] Status post left knee replacement Discharge Disposition: [...] XR Knee Standing Alignment AP Lat [place] Left (09/12/2020 4:06 PM EST) Anatomical Region [...] replacement documented in this encounter Care Teams Soil Sampler Relationship Specialty Start Date End Date Sari Hay MD [facility] [address] [place] [address] PCP - General 05/21/11 documented as of this encounter
--- OUTSIDE RECORDS SUMMARY | 2024-05-09 04:25 | XMS_ITS | Encounter Summary ---
Author Organization [facility] Address [facility] [place] [address] Care Team Providers Care Public School Teacher Name Role Phone Sari Hay MD Primary Care Provider [phone] Reason for Visit * Auth/Cert Specialty Diagnoses / Procedures Referred By Emmanuel t Referred To Contact Diagnoses Presence of left artificial knee joint Aseptic Loosening Left TKA Procedures PRO REVISE KNEE JOINT REPLACE, ALL PARTS TOTAL KNEE REVISION ARTHROPLASTY, COMPLETE (WRVU 27.11) Referral ID Status Reason Start Date Expiration Date Visits Re quested Visits Authorized [id number] 1 1 Encounter Details Date Type Department Care Team (Late st Contact Info) Description 03/14/2021 12:31 PM EDT - 03/14/2021 4:01 PM EDT [place] [id number] Rod Valdez MD [facility] [place] [address] @TOTAL KNEE REVISION ARTHROPLASTY, ONE COMPONENT (WRVU [...] Sissy Eugene Patient Age: 55 y.o. Language: Citizen Of [place] Race: White Ethnicity: Not nor Admit date: 03/14/2021 Discharge date and time: 03/15/2021 Attending Physician: Rod Valdez MD Discharge Physician: Rod Valdez MD Follow-up Recommendations for Providers: See discharge instructions for additional details. Future Appointments Date Time Provider Department Center 04/11/2021 10:30 AM [facility] DX ROOM 1 Xray [facility] Rad 04/11/2021 11:30 AM Teressa Taylor PA [facility] [place] [facility] [place]patient Provider Contact Information: Rod Valdez MD Orthopedics: [phone] After hours and weekends, call [facility] Molding Machine Operator Helper, , and have the Orthopedic resident paged. Discharge Diagnoses (Hospital Problems) and Secondary Diagnoses (Chronic Problems): Active Hospital Problems Diagnosis ??? S/P revision of total knee, left [place] 03/14/21 Resolved Hospital Problems No resolved problems [...] who have questions please contact the health ambulatory care nurse that requested your imaging first. Pending Studies [...] bowel movement. You can also take an ezoa-pjc-rhpusrm medication, Miralax if needed to combat constipation. [...] as much as possible. Call your doctor ([phone]) if you develop: 1. Fever greater than 100.5 2. Severe nausea or vomiting 3. Increasing pain that is not controlled by pain medications 4. Increasing redness, swelling, or drainage from incisions 5. Change in sensation FOLLOW-UP APPOINTMENTS: 1. You will have follow-up appointments at [facility] as indicated below in Future Appointment and Orders. 2. You will need to have x-rays prior to your follow-up appointment on 04/11/2021. Please come to Radiology, desk 3T, 1 hour BEFORE that appointment for those x-rays. Future Appointments Date Time Provider Department Center 04/11/2021 10:30 AM [facility] DX ROOM 1 Xray [facility] Rad 04/11/2021 11:30 AM Teressa Taylor PA [facility] [place] [address] [place] [address] If you have questions or concerns: Thursday through Thursday, 8 AM - 5 PM, please call Dr. Rod Valdez MD's office at . If it is after 5 PM, the weekend, or holidays, please call and ask to speak with theOrthopedic resident on-call. General Instructions None Future Appointments and Orders Future Appointments and Orders Future Appointments Provider Department Dept Phone 04/11/2021 10:30 AM [facility] DX RO[facility] 1 XRay at [facility] Arrive at: [facility] [phone] Please go to [facility] ([place] Location). 04/11/2021 11:30 AM Teressa Taylor PA Orthopaedics at [facility] Arrive at: [facility] [phone] Future Orders Complete By Expires Referral to Home Health - at DISCHARGE [RPY3039 CPT(R)] As directed Process Instructions: Scheduling Instructions: Comments: DOCUMENTATION FOR VNA SERVICES (INCLUDING THOSE PATIENTS WITH MEDICARE COVERAGE REQUIRING HOME VNA SERVICES AND/OR HOSPICE SERVICES) Sissy Eugene Discharge to own home: [address] [facility] [address] There are no phone numbers on file. Telephone Information: Odd Jobs Day Worker's Name: self In discussion with the attending physician, it is certified that this patient is under their care and that they, or a nurse practitioner, clinical nurse specialist or physician's wet process miller head assistant who is working directly with them, had [...] for services as follows: Home Health Agency: [facility] PHONE: [phone] FAX: [phone] Home care orders for Total Hip Replacements w PT services only. Mcc(SN) eval if indicated on admission visit 1. [...] from this patient's PCP: Sari Hay MD [facility] Jenna Hermosillo [address] [place] [id number] All [facility] agencies which cover the area of patient's residence have been reviewed, either verbally shaun writing, and patient/family have chosen the home health care agency as noted for home services. Questions: Agency name and contact information: [facility] Patient location post discharge: Home What services are requested: Physical Therapy Occupational Therapy Start date: Responsible MD post discharge contact info: PCP Primary Care Provider: Sari Hay MD [phone] Discharge References/Attachments None documented in this encounter [...] bowel movement. You can also take an owlq-tgz-znosqci medication, Miralax if needed to combat constipation. [...] as much as possible. Call your doctor ([phone]) if you develop: 1. Fever greater than 100.5 2. Severe nausea or vomiting 3. Increasing pain that is not controlled by pain medications 4. Increasing redness, swelling, or drainage from incisions 5. Change in sensation FOLLOW-UP APPOINTMENTS: 1. You will have follow-up appointments at [facility] as indicated below in Future Appointment and Orders. 2. You will need to have x-rays prior to your follow-up appointment on 04/11/2021. Please come to Radiology, desk 3T, 1 hour BEFORE that appointment for those x-rays. Future Appointments Date Time Provider Department Center 04/11/2021 10:30 AM [facility] DX ROOM 1 Xray [facility] Rad 04/11/2021 11:30 AM Teressa Taylor PA [facility] [place] [facility] If you have questions or [...] will monitor till d/c. Cas Schulz OTR/L 3458 Pager: [phone] CAS SCHULZ OT 03/15/2021 Occupational Therapy Rehabilitation Department * Corine Hu RN - 03/15/2021 10:44 AM EDT The patient/quality control representative has been provided a list of Home Health Agencies/DME vendors which servetheir preferred geographic area. A letter describing our affiliations was reviewed with them and they were educated about their right to choose where referrals are placed. Provided patient with [facility] Star Quality Rating for Home care . Patient requests referral to: [facility] [employer]. PHONE: [phone] FAX: [phone] . Expected date of discharge: 03/15/2021 Referral routed to the Shrimping Boat Captain for matching with agency/vendor and to provide [...] EACH performed by Stanley Koo MD at [facility] ??? PRO REVISE KNEE JOINT REPLACE, 1 PART Left 02/10/2019 @TOTAL KNEE REVISION ARTHROPLASTY, ONE COMPONENT (WRVU 21.12) performed by Rod Valdez MD [facility] MAIN OR ??? PRO XFER SINGLE SUPERFICI LOW LEG TENDON Left 10/01/2015 TENDON TRANSFER, ANKLE, SUPERFICIAL performed by Stanley Koo MD at [facility] ??? TISSUE TRANSFER ACL [...] her and son in a 1 story [place] house. Pt's sister who is a physical therapist will be staying with her for a few days after surgery. 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 Pt was [...] plan of care. JANE TAVARES, PT Pager [phone] * Kenneth De Leon MD - 03/15/2021 [...] ??? sodium chloride 0.9% 1,000 mL (03/15/21 8092) OBJECTIVE: Temp: [36.1 ??C (97 ??F)-36.9 ??C [...] Time Provider Department Center 04/11/2021 10:30 AM [facility] DX ROOM 1 MH Xray [facility] Rad 04/11/2021 11:30 AM Teressa Taylor, PA [facility] [place] [facility] * Mayuri Pearce MD - [...] ??? S/P revision of total knee, left [place] 03/14/21 Resolved Hospital Problems No resolved problems [...] ??? sodium chloride 0.9% 1,000 mL (03/14/21 5738) OBJECTIVE: Temp: [36.1 ??C (97 ??F)-36.5 ??C [...] Time Provider Department Center 04/11/2021 10:30 AM [facility] DX ROOM 1 MH Xray [facility] Rad 04/11/2021 11:30 AM Teressa Taylor PA [facility] * Sb Roca RN - [...] Operative Note Patient Name: Sissy Eugene : [id number] MR#: [id number] Case Date: 03/14/2021 Surgeon: Surgeon(s) and Role: [...] Valdez MD - 03/14/2021 2:09 PM EDT [facility] Operative Note Patient Name: Sissy Eugene : [id number] MR#: [id number] Case Date: 03/14/2021 Surgeon: Surgeon(s) and Role: [...] cell count and culture; implants sent to [place] [facility] Drains: * No LDAs found * [...] and this was marked with a green assinibo[place] and [place] tribes. An adductor canal block was placed for [...] the implants were openedand assembled according to curing press operator instructions. 2 x 40 g bags of [...] Implant Name Type Inv. Item Serial No. Button Maker Lot No. LRB No. Used Action CEMENT BONE HIGH VISCOSITY 40GM GENTAMICIN SINGLE DOSE PMMA ([id number]) - [id number] IMPLANTS CEMENT BONE HIGH VISCOSITY 40GM GENTAMICIN SINGLE DOSE PMMA ([id number]) [employer] [facility] [id number] Left 1 Implanted CEMENT BONE HIGH VISCOSITY 40GM GENTAMICIN SINGLE DOSE PMMA ([id number]) - [id number] IMPLANTS CEMENT BONE HIGH VISCOSITY 40GM GENTAMICIN SINGLE DOSE PMMA ([id number]) [employer]ant ON LICENSE OF [facility] SHAI [id number] Left 1 Implanted Isa persona stem extension [id number] Left 1 Implanted Isa Persona Left PS poly 12mm ISA BIOMET - [id number] Left 1 Implanted Isa Persona Fixed Tibia left size F ISA BIOMET - [id number] Left 1 Implanted documented in this encounter [...] EDT Revise Knee Joint Replace, 1 Part (76683) 03/14/2021 1:45 PM EDT Aseptic Loosening Left TKA IMPLANTABLE DEVICES SCAN 03/14/2021 12:00 AM EDT documented in this encounter Results * (ABNORMAL) Differential, Automated (03/15/2021 2:21 AM EDT) Neutrophil % 85.4 % [facility] Neutrophil Absolute 10.75(H) 1.70 - 6.10 x10(3)/[facility] Lymph % 9.1 % [facility] Lymphocytes Abs 1.1 0.9 - 3.2 x10(3)/[facility] Monocyte % 4.9 % [facility] Monocyte Abs 0.6 0.3 - 0.9 x10(3)/[facility] Eos % 0.0 % [facility] Eosinophils Abs 0.0 0.0 - 0.4 x10(3)/[facility] Basophil % 0.2 % [facility] Baso Absolute 0.0 0.0 - 0.1 x10(3)/[facility] Immature Gran % 0.40 % [facility] Comment: Immature granulocytes(IG's)percentage and absolute count will include metamyelocytes, myelocytes, and promyelocytes. Blood smears from CBCs yielding IG's will be scanned manually for concordance. If this scan disagrees with the automated IG or if promyelocytes are noted, a manual differential will be performed. Immature Gran Absolute 0.05(H) 0.00 - 0.04 x10(3)/[facility] Blood 03/15/2021 2:21 AM EDT 03/15/2021 2:38 AM EDT Narrative Resulting Agency Comment Spec In Lab Kenneth De Leon MD HEMATOLOGY ORDERABLE S [facility] [place] [address] * (ABNORMAL) Hemogram (03/15/2021 2:21 AM EDT) White Blood Cell 12.6(H) 4.0 - 9.5 x10(3)/[facility] Red Blood Cell 3.93(L) 4.00 - 5.21 x10(6)/[facility] Hemoglobin 11.6(L) 11.7 - 15.5 gm/dL [facility] Hematocrit 35.2(L) 35.7 - 45.8 % [facility] Mean Cell Volume 89.6 82.6 - 94.4 fL [facility] Mean Cell Hemoglobin 29.5 27.1 - 32.0 pg [facility] Mean Cell Hemoglobin Concentration 33.0 31.7 - 35.0 gm/dL [facility] Platelet 237 145 - 357 x10(3)/mc L [facility] RDW Standard Deviation 39.7 37.0 - 46.0 [facility] RDW coefficient of variation 12.1 11.5 - 14.1 % [facility] Mean Platelet Volume 10.2 7.6 - 12.9 fL [facility] NRBC% auto 0.0 % [facility] NRBC Absolute 0.000 0.000 - 0.000 x10(3)/mc L [facility] Blood 03/15/2021 2:21 AM EDT 03/15/2021 2:38 AM EDT Narrative Resulting Agency Comment Spec In Lab Kenneth De Leon MD HEMATOLOGY ORDERABLE S [facility] [place] [address] * Basic Metabolic Panel (non-fasting) (03/15/2021 2:21 AM EDT) Glucose 132 65 - 199 mg/dL [facility] Comment:Diabetes: >=200 mg/d L plus symptoms Blood Urea Nitrogen 14 8 - 18 mg/dL [facility] Creatinine 0.76 0.70 - 1.20 mg/dL [facility] Sodium 138 135 - 145 mmol/L [facility] Potassium 4.2 3.5 - 5.0 mmol/L [facility] Comment: Please note: ??Patients with WBC >100,000 may have falsely elevated Potassium levels. ??For accurate Potassium quantification in these patients send serum separator tube (gold top) for subsequent determinations. ??Contact the Clinical Chemistry Laboratory if there are any questions. Chloride 105 98 - 107 mmol/L [facility] Carbon Dioxide 24 22 - 31 mmol/L [facility] Anion Gap 9 5 - 15 mmol/L [facility] Calcium 8.9 8.5 - 10.5 mg/dL [facility] Est Glomerular Filtration Rate 87 >=60 mL/min/1. 73 m?? [facility] [...] In Lab Rod Valdez MD CHEMISTRY ORDERABLES [facility] [place] [address] * XR Knee 1-2 Views Left (Generic) [...] who have questions please contact the health ambulatory care nurse that requested your imaging first. [...] patients who have questions please contactthe health ambulatory care nurse that requested your imaging first. Rod Valdez MD IMG DX ORDERABLES * Cell Count Body Fluid Knee, Left (03/14/2021 2:15 PM EDT) Body Fluid Source Knee, Left [facility] Color, Fld Yellow [facility] Appearance, Fld Clear [facility] WBC Count, Fld 103 /[facility] Comment: Guideline listed below apply to [...] 14:43. Polymorphonuclear cells BF % 13 % [facility] Comment: Polymorphonuclear cell percent and absolute values may contain Neutrophils, Eosinophils, and Basophils. Body fluid smear will be scanned manually for concordance. Mononuclear cells BF % 87 % [facility] Comment: Mononuclear cell percent and absolute values may contain Lymphocytes and Monocytes. Body fluid smear will be scanned manually for concordance. Polymorphonuclear cells BF ABS 13 /[facility] Comment: Polymorphonuclear cell percent and absolute values may contain Neutrophils, Eosinophils, and Basophils. Body fluid smear will be scanned manually for concordance. Mononuclear cells BF ABS 90 /[facility] Comment: Mononuclear cell percent and absolute values may contain Lymphocytes and Monocytes. Body fluid smear will be scanned manually for concordance. Knee, Left 03/14/2021 2:15 PM EDT 03/14/2021 2:22 PM EDT Narrative Resulting Agency Comment Spec In Lab Rod Valdez MD BODY FLUIDS AND CANDICE LS ORDERABLES [facility] [place] [address] * SCAN DOC: IMPLANTABLE DEVICES (03/14/2021 12:00 [...] Oral, NIGHTLY, 2 doses, First dose on Thu03/14/21 at 2215, Last dose on Thu03/15/21 at [...] Thu03/14/21 at 2215, Until Discontinued, Routine Given 03/15/2021 [...] relieved., Routine 2155 (Given - Provider: Dora Salas, ODIN) 0453 (Given - Provider: Dora Salas RN) [...] Unit) documented in this encounter Care Teams Public School Teacher Relationship Specialty Start Date End Date Sari Hay MD [address] [facility] [address] [place] [address] PCP - General 05/21/11 documented as of this encounter
--- OUTSIDE RECORDS SUMMARY | 2024-05-09 04:25 | XMS_ITS | Encounter Summary ---
Author Organization [facility] [place] [address] Care Team Providers Care Resolution Analyst Name Role Phone Sari Hay MD Primary Care Provider [phone] Reason for Referral * Diagnostic Test (Routine) - Closed Specialty Diagnoses / Procedures Referred By Emmanuel cisneros Referred To Contact Radiology Diagnoses Status post left knee replacement Procedures NM Bone Scan 3 Phase [facility] [address] [place] [address] [place] [address] Referral ID Status Reason Start Date Expiration Date V isits Requested Visits Authorized [id number] Closed Specialty Service Requested 07/11/2020 01/09/2022 1 1 Reason for Visit * Reason Onset Date Comments Other 07/11/2020 Encounter Details Date Type Department Care Team (Late st Contact Info) Description 07/11/2020 [place] [address] Robert Cornell Other Social History [...] ? Electronically signed by: Anish France MD, [facility] ([phone]), at 08/29/2020 4:10 PM Narrative 08/29/2020 4:10 [...] the resident's interpretationand agree with the findings, Ansih France MD at 08/29/2020 4:10 PM Thank you for letting us participate in the care of this patient. Forquestions regarding this report, please contact the number below. Rod Valdez MD IMG NM ORDERABLES documented in this encounter Visit Diagnoses Diagnosis Status post left knee replacement Status post left knee replacement documented in this encounter Care Teams Resolution Analyst Relationship Specialty Start Date End Date Sari Hay MD [address] [place] [address] PCP - General 05/21/11 documented as of this encounter
--- OUTSIDE RECORDS SUMMARY | 2024-05-09 04:25 | XMS_ITS | Encounter Summary ---
Author Organization [facility] Address [facility] [place] [address] Care Team Providers Care Mat Puncher Name Role Phone Sari Hay MD Primary Care Provider Reason for Visit * Auth/Cert Specialty Diagnoses / Procedures Referred By Emmanuel cisneros Referred To Contact Diagnoses Presence of left artificial knee joint Aseptic Loosening Left TKA Procedures PRO REVISE KNEE JOINT REPLACE, ALL PARTS TOTAL KNEE REVISION ARTHROPLASTY, COMPLETE (WRVU 27.11) Referral ID Status Reason Start Date Expiration Date Visits Re quested Visits Authorized [id number] 1 1 Encounter Details Date Type Department Care Team (Late st Contact Info) Description 03/14/2021 1:49 PM EDT Anesthesia Event [place] [address] Devin King MD [facility] [place] [address] Saud Barajas MD [facility] [place] [address] Anesthesia Record Procedure Summary Procedure Name Responsible [...] questions and acknowledgement of understanding Marcia Jimenez, HERON 1511 Break/Relief Out 1605 Extubation/LMA Out 1623 [...] cleanup utility RA#[id number]) 02/10/19 1209 by Catrina Hucthins RN 06/02/22 1715 by Sae Abdi External Catheter 02/11/19; 1230; external catheter applied; 03/15/21 02/11/19 1230 by Liliana Martinez RN 03/15/21 0000 by Rod Weaver, RN (RETIRED) Peripheral IV Line - Single Lumen 03/14/21; 1152; median vein (underside of arm), left; vicu-mwi-rwyewt catheter system; Anatomical Landmarks; 20 gauge, 1 in length; millicent chavez; tolerated well, intradermal injection; catheter/device intact, removed per physician; 03/15/21; 1250 03/14/21 1152 by Millicent Chavez RN 03/15/21 1250 by Rod Weaver RN Incision 03/14/21; 1409; Left ; knee; [...] Procedure Summary Date: 03/14/21 Room / Location: [facility] OR Anesthesia Start: 1349 Anesthesia Stop: Procedure: TOTAL KNEE REVISION ARTHROPLASTY, ONE COMPONENT (WRVU 21.12) (Left Knee) Diagnosis: (Aseptic Loosening Left TKA) Surgeons: Rod Valdez MD Responsible Provider: Devin King MD Anesthesia Type: spinal ASA Status: 2 All Anesthesia Providers: Anesthesiologist: Devin King MD Siebel Administrator: Osman Rothman MD Vitals Value Taken Time BP 120/82 03/14/21 1630 Temp Pulse 56 03/14/21 1636 Resp 11 03/14/21 1636 SpO2 100 % 03/14/21 1636 Pain Level Vitals shown include unvalidated device data. Patient Location: PACU/[facility] Level of Consciousness: Conscious but Sleepy [...] appropriate leg heaviness B/L shortly after placement. Resident/LOW HEEL BUILDER: Osman Rothman MD Second Resident/LOW HEEL BUILDER: SRNA: Fellow: Attending Physician: Devin King MD [...] EACH performed by Stanley Koo MD at [facility] ??? PRO REVISE KNEE JOINT REPLACE, 1 PART Left 02/10/2019 @TOTAL KNEE REVISION ARTHROPLASTY, ONE COMPONENT (WRVU 21.12) performed by Rod Valdez MD [facility] MAIN OR ??? PRO XFER SINGLE SUPERFICI LOW LEG TENDON Left 10/01/2015 TENDON TRANSFER, ANKLE, SUPERFICIAL performed by Stanley Koo MD at [facility] ??? TISSUE TRANSFER ACL cadaver [...] Block (03/14/2021 1:53 PM EDT) Narrative Devin King MD - 03/14/2021 1:53 PM EDT Devin [...] leg heaviness B/L shortly after placement. ?? Resident/LOW HEEL BUILDER: ? Osman Rothman MD Second Resident/LOW HEEL BUILDER: SRNA: ? Fellow: ? Attending Physician: ? Devin King MD ~~~~~~~~~~~~~~~~~~~~~~~~~~~~~~~~~~~~~~~~~~~~~~~~~~~~~~~~~~~~ Devin King MD [facility] * Anesthesia Block (03/14/2021 12:09 PM [...] pain or paresthesias noted. Zeb Maldonado MD [facility] documented in this encounter Visit Diagnoses [...] mg documented in this encounter Care Teams Mat Puncher Relationship Specialty Start Date End Date Sari Hay MD [facility] [address] [place] [address] PCP - General 05/21/11 documented as of this encounter
--- OUTSIDE RECORDS SUMMARY | 2024-05-09 04:25 | XMS_ITS | Encounter Summary ---
Author Organization [facility] Address [facility] [place] [address] Care Team Providers Care Denture Waxer Name Role Phone Sari Hay MD Primary Care Provider [phone] Reason for Visit * Reason Onset Date Comments Pre Procedure Call 01/09/2021 Encounter Details Date Type Department Care Team (Late st Contact Info) Description 01/09/2021 Telephone [place] [address] Rod Valdez MD [facility] [place] [address] Pre Procedure Call Social History Tobacco Use [...] left a message for patient to call [phone] directly and schedule surgery with Dr. Valdez. documented in this encounter Plan of Treatment Not on file documented as of this encounter Visit Diagnoses Not on filedocumented in this encounter Care Teams Denture Waxer Relationship Specialty Start Date End Date Sari Hay MD [facility] [address] [facility] [place] [address] PCP - General 05/21/11 documented as of this encounter
--- OUTSIDE RECORDS SUMMARY | 2024-05-09 04:25 | XMS_ITS | Encounter Summary ---
Author Organization [facility] Address [facility] [place] [address] Care Team Providers Care Shaper Operator Name Role Phone Sari Hay MD Primary Care Provider [phone] Reason for Referral * Diagnostic Test (Routine) - Closed Specialty Diagnoses / Procedures Referred By Contac t Referred To Contact Radiology Diagnoses Status post left knee replacement Procedures NM Bone Scan [address] [address] [place] [address] Referral ID Status Reason Start Date Expiration Date V isits Requested Visits Authorized [id number] Closed Specialty Service Requested 07/11/2020 01/09/2022 1 1 Reason for Visit * Diagnostic Test (Routine) - Closed Specialty Diagnoses / Procedures Referred By Contac t Referred To Contact Radiology Diagnoses Status post left knee replacement Procedures NM Bone Scan [address] [address] [place] [address] Referral ID Status Reason Start Date Expiration Date V isits Requested Visits Authorized [id number] Closed Specialty Service Requested 07/11/2020 01/09/2022 1 1 Encounter Details Date Type Department Care Team (Late st Contact Info) Description 08/29/2020 11:51 AM EST - 08/29/2020 2:49 PM EST Hospital Encounter [place] [address] Rod Valdez MD [facility] [address] [place] [address] Status post left knee replacement Discharge Disposition: [...] portion of the prosthesis. Procedure Note Anish Franec MD - 08/29/2020 EXAMINATION: NM BONE SCAN [...] mCi documented in this encounter Care Teams Shaper Operator Relationship Specialty Start Date End Date Sari Hay MD [address] [place] [address] PCP - General 05/21/11 documented as of this encounter
--- OUTSIDE RECORDS SUMMARY | 2024-05-09 04:25 | XMS_ITS | Encounter Summary ---
Author Organization [facility] Address [facility] [place] [address] Care Team Providers Care Plant Sciences Professor Name Role Phone Sari Hay MD Primary Care Provider [phone] Reason for Visit * Reason Comments Follow-up XR, Left TKA REV 02/10, surgical discussion - per aracelis H Encounter Details Date Type Department Care Team (Late st Contact Info) Description 09/12/2020 4:00 PM EST Office [place] [address] Rod Valdez MD [facility] [place] [address] Infection associated with internal right knee prosthesis, [...] arthroplasty performed in September 2017 at the [facility]. She reports that she had a subsequent [...] of component complication is appreciated. Questionnaire Responses: [facility] Surgical Postop Visit 09/12/2020 PROMIS-10 General Health [...] part of the [facility] Response 09/02/2020 KOOS JR Scores 47.49 Spine [facility] Response 09/02/2020 KOOS JR Scores 47.49 ASSESSMENT/PLAN: [...] encounter documented in this encounter Care Teams Plant Sciences Professor Relationship Specialty Start Date End Date Sari Hay MD [address] [place] [address] PCP - General 05/21/11 documented as of this encounter
--- OUTSIDE RECORDS SUMMARY | 2024-05-09 04:25 | XMS_ITS | Encounter Summary ---
Author Organization [facility] Address [facility] [address] Care Team Providers Care Leasing Machine Tender Name Role Phone Sari Hay MD Primary Care Provider [phone] Reason for Visit * Diagnostic Test (Routine) - Closed Specialty Diagnoses / Procedures Referred By Emmanuel cisneros Referred To Contact Radiology Diagnoses Status post left knee replacement Procedures NM Bone Scan 3 Phase [facility] [address] [place] [address] [place] [address] Referral ID Status Reason Start Date Expiration Date V isits Requested Visits Authorized [id number] Closed Specialty Service Requested 07/11/2020 01/09/2022 1 1 Encounter Details Date Type Department Care Team (Late st Contact Info) Description 08/29/2020 2:50 PM EST - 08/29/2020 11:59 PM [facility] Hospital En[place] [address] Rod Valdez MD [facility] [place] [address] Discharge Disposition: Home Social History [...] ? Electronically signed by: Anish France MD, [facility] ([phone]), at 08/29/2020 4:10 PM Narrative 08/29/2020 4:10 [...] on filedocumented in this encounter Care Teams Leasing Machine Tender Relationship Specialty Start Date End Date Sari Hay MD [address] [facility] [address] [place] [address] PCP - General 05/21/11 documented as of this encounter
--- OUTSIDE RECORDS SUMMARY | 2024-05-09 04:25 | XMS_ITS | Encounter Summary ---
Author Organization [facility] Address [facility] [address] Care Team Providers Care Jewelry Bench Worker Name Role Phone Sari Hay MD Primary Care Provider Reason for Visit * Reason Comments Pre-op Exam Revision Left TKA DOS 03.14.21 Encounter Details Date Type Department Care Team (Late st Contact Info) Description 03/05/2021 2:40 PM EDT Office [place] [address] Ko Garrett MD [facility] [place] [address] Preop examination; Mechanical loosening of internal left [...] encounter documented in this encounter Care Teams Jewelry Bench Worker Relationship Specialty Start Date End Date Sari Hay MD [address] [place] [address] PCP - General 05/21/11 documented as of this encounter
--- OUTSIDE RECORDS SUMMARY | 2024-05-09 04:25 | XMS_ITS | Encounter Summary ---
Author Organization [facility] Address [facility] [place] [address] Care Team Providers Care Plate And Frame Filter Operator Name Role Phone Sari Hay MD Primary Care Provider [phone] Reason for Visit * Reason Onset Date Comments Pre Procedure Call 12/31/2020 Encounter Details Date Type Department Care Team (Late st Contact Info) Description 12/31/2020 Telephone [place] [address] Rod Valdez MD [facility] [place] [address] Pre Procedure Call Social History Tobacco Use [...] is calling?Ana Rosa Best call back number: [phone] Best time to call back between 8:00 am & 5:00 pm: anytime after 12:30 Can we leave a message? yes When is your procedure? TBD Who is your surgeon? [place] What procedure are you having?revision of left [...] on filedocumented in this encounter Care Teams Plate And Frame Filter Operator Relationship Specialty Start Date End Date Sari Hay MD [address] [place] [address] PCP - General 05/21/11 documented as of this encounter
--- OUTSIDE RECORDS SUMMARY | 2024-05-09 04:25 | XMS_ITS | Encounter Summary ---
Author Organization [facility] Address [facility] [place] [address] Care Team Providers Care Jewel Corner Brushing Machine Operator Name Role Phone Sari Hay MD Primary Care Provider [phone] Reason for Visit * Reason Comments Aftercare Of Tjr L TKR rev 02/10/2019 Encounter Details Date Type Department Care Team (Late st Contact Info) Description 09/03/2020 11:00 AM EST [place] [address] Teressa Taylor PA [facility] [place] [address] Infection associated with internal right knee prosthesis, [...] NAME: Sissy Eugene AGE: 54 y.o. MR#: [id number] DATE OF VISIT: 09/03/2020 CHIEF COMPLAINT: FU, [...] after clinic were reassuring. I have called Yook as was our plan. She will be [...] * Differential, Automated (09/03/2020 12:42 PM EST) Neutrophil % 54.3 % [facility] Neutrophil Absolute 3.81 1.70 - 6.10 x10(3)/[facility] Lymph % 35.2 % [facility] Lymphocytes Abs 2.5 0.9 - 3.2 x10(3)/[facility] Monocyte % 6.8 % [facility] Monocyte Abs 0.5 0.3 - 0.9 x10(3)/[facility] Eos % 2.6 % [facility] Eosinophils Abs 0.2 0.0 - 0.4 x10(3)/[facility] Basophil % 1.0 % [facility] Baso Absolute 0.1 0.0 - 0.1 x10(3)/[facility] Immature Gran % 0.10 % [facility] Comment: Immature granulocytes(IG's)percentage and absolute count will include metamyelocytes, myelocytes, and promyelocytes. Blood smears from CBCs yielding IG's will be scanned manually for concordance. If this scan disagrees with the automated IG or if promyelocytes are noted, a manual differential will be performed. Immature Gran Absolute 0.01 0.00 - 0.04 x10(3)/[facility] Blood specimen (specimen) 09/03/2020 12:42 PM EST 09/03/2020 12:55 PM EST Narrative Resulting Agency Comment Spec In Lab Teressa ANDERSEN HEMATOLOGY ORDERABLE S Performing Organization Address City/State/[facility] Co de Phone Number [facility] [place] [address] * Hemogram (09/03/2020 12:42 PM EST) White Blood Cell 7.0 4.0 - 9.5 x10(3)/[facility] Red Blood Cell 5.05 4.00 - 5.21 x10(6)/[facility] Hemoglobin 14.5 11.7 - 15.5 gm/dL [facility] Hematocrit 44.0 35.7 - 45.8 % [facility] Mean Cell Volume 87.1 82.6 - 94.4 fL [facility] Mean Cell Hemoglobin 28.7 27.1 - 32.0 pg [facility] Mean Cell Hemoglobin Concentration 33.0 31.7 - 35.0 gm/dL [facility] Platelet 234 145 - 357 x10(3)/[facility] RDW Standard Deviation 40.5 37.0 - 46.0 fL [facility] RDW coefficient of variation 12.9 11.5 - 14.1 % [facility] Mean Platelet Volume 9.9 7.6 - 12.9 fL [facility] NRBC% auto 0.0 % [facility] NRBC Absolute 0.000 0.000 - 0.000 x10(3)/[facility] Blood specimen (specimen) 09/03/2020 12:42 PM EST 09/03/2020 12:55 PM EST Narrative Resulting Agency Comment Spec In Lab Teressa ANDERSEN HEMATOLOGY ORDERABLE S Performing Organization Address City/[facility] Co de Phone Number [facility] [place] [address] * Sedimentation rate (09/03/2020 12:42 PM EST) Sedimentation Rate Automated 17 2 - 39 mm/hr [facility] Comment: Effective September 14, 2019 new capillary photometric technology has resulted in a change in reference ranges. It is recommended that each ESR result be reviewed with its own age appropriate reference range. Blood specimen (specimen) 09/03/2020 12:42 PM EST 09/03/2020 12:55 PM EST Narrative Resulting Agency Comment Spec In Lab Ammy Latham MD HEMATOLOGY ORDERABLE S Performing Organization Address City/[facility]/ZIP Co de Phone Number [facility] [place] [address] * CRP, acute inflammation (09/03/2020 12:42 PM EST) C-Reactive Protein 2.6 <=4.9 mg/L [facility] Blood specimen (specimen) 09/03/2020 12:42 PM EST 09/03/2020 12:55 PM EST Narrative Resulting Agency Comment Spec In Lab Ammy Latham MD CHEMISTRY ORDERABLES Performing Organization Address City/State/[facility] Co de Phone Number [facility] [place] [address] documented in this encounter Visit Diagnoses Diagnosis Infection associated with internal right knee prosthesis, initial encounter documented in this encounter Care Teams Jewel Corner Brushing Machine Operator Relationship Specialty Start Date End Date Sari Hay MD [facility] [address] [place] [address] PCP - General 05/21/11 documented as of this encounter
--- OUTSIDE RECORDS SUMMARY | 2024-05-09 04:25 | XMS_ITS | Encounter Summary ---
Author Organization [facility] [place] [address] Care Team Providers Care Battery Filler Name Role Phone Sari Hay MD Primary Care Provider [phone] Reason for Referral * Occupational Therapy (Routine) - Canceled Specialty Diagnoses / Procedures Referred By Emmanuel cisneros Referred To Contact Diagnoses Closed Colles' fracture of left radius with routine healing, subsequent encounter Celeste Hu APRN [facility] [place] [address] Referral ID Status Reason Start Date Expiration Date V isits Requested Visits Authorized [id number] Canceled Evaluate and Treat 10/28/2019 04/25/2020 24 24 Reason for Visit * Reason Comments Follow-up COXR L distal radius Fx DOI 09/05/19 Encounter Details Date Type Department Care Team (Late st Contact Info) Description 10/28/2019 11:20 AM EST Office [place] [address] Celeste Hu SERVICE LEARNING COORDINATOR [facility] [place] [address] Closed Colles' fracture of left radius with [...] this encounter Progress Notes * Celeste Hu, SERVICE LEARNING COORDINATOR - 10/28/2019 11:20 AM EST PATIENT NAME: Sissy Eugene AGE: 54 y.o. MR#: [id number] DATE OF VISIT: 10/28/2019 DATE OF INJURY/ONSET: [...] shoulder or elbow stiffness. 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 Patient's medications, allergies, [...] this time, okay to come out of [facility] into a volar wrist splint. She has a volar splint that was previouslyordered. This brace is well fitting. Advised using this brace for protection, ok to take for showering, computer work/typing activity. OT referral given to work on ROM, PRE, progress as tolerated. Avoid heavy impact activity or heavy lifting. modalities prn. Ok to use tlow-gjj-[id number] analgesics for pain such as Tylenol or [...] below. ? Electronically signed by: Annette Pereira [facility] ([phone]), at 11/29/2019 2:10 PM Narrative 11/29/2019 2:10 [...] number below. Electronically signed by: Annette Pereira [facility]([phone]), at 11/29/2019 2:10 PM Celeste Hu APRN IMG DX ORDERABLES documented in this encounter Visit Diagnoses Diagnosis Closed Colles' fracture of left radius with routine healing, subsequent encounter- Primary Closed Colles' fracture of left radius with routine healing, subsequent encounter Presence of left artificial knee joint Knee joint replacement by other means documented in this encounter Care Teams Battery Filler Relationship Specialty Start Date End Date Sari Hay MD [facility] [address] [place] [address] PCP - General 05/21/11 documented as of this encounter
--- OUTSIDE RECORDS SUMMARY | 2024-05-09 04:25 | XMS_ITS | Encounter Summary ---
Author Organization [facility] [place] [address] Care Team Providers Care Loom Fixer Helper Name Role Phone Sari Hay MD Primary Care Provider [phone] Reason for Visit * Reason Onset Date Comments Questions 12/31/2020 Encounter Details Date Type Department Care Team (Late st Contact Info) Description 12/31/2020 Telephone [place] [address] Michael Rios Questions Social History Tobacco Use [...] Plan: fwd'd to scheduling for resolution Patient/Responsible republican voices an understanding of advice? yes Patient/Responsible republican intends to comply with action/disposition: yes documented in this encounter Plan of Treatment Not on file documented as of this encounter Visit Diagnoses Not on filedocumented in this encounter Care Teams Loom Fixer Helper Relationship Specialty Start Date End Date Sari Hay MD [facility] [address] [facility] [address] [place] [address] PCP - General 05/21/11 documented as of this encounter
--- OUTSIDE RECORDS SUMMARY | 2024-05-09 04:25 | XMS_ITS | Encounter Summary ---
Author Organization [facility] [place] [address] Care Team Providers Care Business Librarian Name Role Phone Sari Hay MD Primary Care Provider [phone] Encounter Details Date Type Department Care Team (Latest Contact Info) Description 03/05/2021 2:00 PM EDT Clinical Support Same Day [place] [facility] [place] [address] Status post left knee replacement; Mechanical loosening [...] of left lower extremity BASIC METABOLIC PANEL Routine 03/05/2021 2:39 PM EDT Status post left knee replacement Mechanical loosening of internal left knee prosthetic joint, subsequent encounter Pain of left lower extremity documented in this encounter Results * Type and Screen Validity (03/05/2021 2:39 PM EDT) T&S only valid at [facility] LABORATORY Comment:This Type and Screen result is only valid at the [facility] Blood 03/05/2021 2:39 PM EDT 03/05/2021 2:47 PM EDT Narrative Resulting Agency Comment Spec In Lab Rod Valdez MD BLOOD BANK LAB ORDER DEVAN Performing Organization Address City/Va Hospital/ZIP Co de Phone Number [facility] [place] [address] * ABORH Recheck Status (03/05/2021 2:39 PM EDT) ABORH Type Recheck Completed [facility] Blood 03/05/2021 2:39 PM EDT 03/05/2021 2:47 PM EDT Narrative Resulting Agency Comment Spec In Lab Rod Valdez MD BLOOD BANK LAB ORDER DEVAN [facility] [place] [address] * Antibody screen (03/05/2021 2:39 PM EDT) Ab Screen Interp Negative [facility] Expires at 2359 on: 03/17/2021 [facility] Blood 03/05/2021 2:39 PM EDT 03/05/2021 2:47 PM EDT Narrative Resulting Agency Comment Spec In Lab Rod Valdez MD BLOOD BANK LAB ORDER DEVAN [facility] [place] [address] * Differential, Automated (03/05/2021 2:39 PM EDT) [facility] Neutrophil % 53.4 % [facility] Neutrophil Absolute 3.69 1.70 - 6.10 x10(3)/[facility] LABORATORY Lymph % 35.7 % [facility]OR[facility]ORY Lymphocytes Abs 2.5 0.9 - 3.2 x10(3)/[facility] LABORATORY Monocyte % 7.5 % [facility] Monocyte Abs 0.5 0.3 - 0.9 x10(3)/[facility] LABORATORY Eos % 2.3 % [facility] Eosinophils Abs 0.2 0.0 - 0.4 x10(3)/[facility] LABORATORY Basophil % 1.0 % [facility] Baso Absolute 0.1 0.0 - 0.1 x10(3)/[facility] LABORATORY Immature Gran % 0.10 % [facility] Comment: Immature granulocytes(IG's)percentage and absolute count will include metamyelocytes, myelocytes, and promyelocytes. Blood smears from CBCs yielding IG's will be scanned manually for concordance. If this scan disagrees with the automated IG or if promyelocytes are noted, a manual differential will be performed. Immature Gran Absolute 0.01 0.00 - 0.04 x10(3)/[facility] LABORATORY Blood 03/05/2021 2:39 PM EDT 03/05/2021 2:50 PM EDT Narrative Resulting Agency Comment Spec In Lab Rod Valdez MD HEMATOLOGY ORDERABLE S [facility] [place] [address] * ABO/Rh Typing (03/05/2021 2:39 PM EDT) ABORH Type A Pos [facility] Blood 03/05/2021 2:39 PM EDT 03/05/2021 2:47 PM EDT Narrative Resulting Agency Comment Spec In Lab Rod Valdez MD BLOOD BANK LAB ORDER DEVAN Performing Organization Address City/Va Hospital/ZIP Co de Phone Number [facility] [place] [address] * Hemogram (03/05/2021 2:39 PM EDT) White Blood Cell 6.9 4.0 - 9.5 x10(3)/[facility] LABORATORY Red Blood Cell 4.45 4.00 - 5.21 x10(6)/[facility] LABORATORY Hemoglobin 13.2 11.7 - 15.5 gm/dL [facility] Hematocrit 40.3 35.7 - 45.8 % [facility] Mean Cell Volume 90.6 82.6 - 94.[address] [facility] Mean Cell Hemoglobin 29.7 27.1 - 32.[address] [facility] Mean Cell Hemoglobin Concentration 32.8 31.7 - 35.0 gm/dL [facility] Platelet 249 145 - 357 x10(3)/[facility] LABORATORY RDW Standard Deviation 40.9 37.0 - 46.0 [facility] LABORATORY RDW coefficient of variation 12.5 11.5 - 14.1 % [facility] LAB[facility] Mean Platelet Volume 10.0 7.6 - 12.[address] [facility] NRBC% auto 0.0 % [facility] NRBC Absolute 0.000 0.000 - 0.000 x10(3)/mcL [facility] Blood 03/05/2021 2:39 PM EDT 03/05/2021 2:50 PM EDT Narrative Resulting Agency Comment Spec In Lab Rod Valdez MD HEMATOLOGY ORDERABLE S [facility] [place] [address] * (ABNORMAL) Basic Metabolic Panel (non-fasting) (03/05/2021 [...] Valdez MD CHEMISTRY ORDERABLES Performing Organization Address [facility]/Va Hospital/[facility] Co de Phone Number [facility] [place] [address] * Prothrombin Time (03/05/2021 2:39 PM EDT) [...] HEMATOLOGY ORDERABLE S Performing Organization Address [facility]/Va Hospital/[facility] Co de Phone Number [facility] [place] [address] * APTT (03/05/2021 2:39 PM EDT) Partial Thromboplastin Time 32 25 - 37 [...] Lab Rod Valdez MD HEMATOLOGY ORDERABLE S [facility] [place] [address] documented in this encounter Visit Diagnoses Diagnosis Status post left knee replacement Mechanical loosening of internal left knee prosthetic joint, subsequent encounter Pain of left lower extremity documented in this encounter Care Teams Business Librarian Relationship Specialty Start Date End Date Sari Hay MD [address] [facility] 1 [place] [address] PCP - General 05/21/11 documented as of this encounter
--- OUTSIDE RECORDS SUMMARY | 2024-05-09 04:25 | XMS_ITS | Encounter Summary ---
Author Organization [facility] Address [facility] [place] [address] Care Team Providers Care Automotive Fuel Systems Converter Name Role Phone Sari Hay MD Primary Care Provider [phone] Reason for Visit * Reason Onset Date Comments Appointment 01/03/2021 Encounter Details Date Type Department Care Team (Late st Contact Info) Description 01/03/2021 Telephone [place] [phone] Teressa Taylor PA [facility] DR ORTHOPAEDIC SURGERY [place] [id number] Appointment Social History Tobacco Use Types Packs/Day [...] on filedocumented in this encounter Care Teams Automotive Fuel Systems Converter Relationship Specialty Start Date End Date Sari Hay MD Marg[address] [facility] 1 [place] [address] PCP - General 05/21/11 documented as of this encounter
--- OUTSIDE RECORDS SUMMARY | 2024-05-09 04:25 | XMS_ITS | Encounter Summary ---
Author Organization [facility] [place] [address] Care Team Providers Care Drive Worker Name Role Phone Sari Hay MD Primary Care Provider [phone] Reason for Visit * Reason Comments Follow Up Fracture Closed Colles' fract ure of left radius with routine healing Encounter Details Date Type Department Care Team (Late st Contact Info) Description 10/28/2019 10:00 AM EST Office [place] [address] Closed Colles' fracture of left radius with [...] encounter documented in this encounter Care Teams Drive Worker Relationship Specialty Start Date End Date Sari Hay MD [address] [place] [address] PCP - General 05/21/11 documented as of this encounter
--- OUTSIDE RECORDS SUMMARY | 2024-05-09 04:25 | XMS_ITS | Encounter Summary ---
Author Organization [facility] [place] [address] Care Team Providers Care Crystal Grower Name Role Phone Sari Hay MD Primary Care Provider [phone] Encounter Details Date Type Department Care Team (Late st Contact Info) Description 01/28/2021 Telephone Orthopaedics at [facility] [place] [address] Candida Yost [facility] [place] [address] Social History Tobacco Use Types Packs/Day Years [...] on filedocumented in this encounter Care Teams Crystal Grower Relationship Specialty Start Date End Date Sari Hay MD [address] [place] [address] PCP - General 05/21/11 documented as of this encounter
--- OUTSIDE RECORDS SUMMARY | 2024-05-09 04:25 | XMS_ITS | Encounter Summary ---
Author Organization [facility] Address [facility] [place] [address] Care Team Providers Care Clockmaker Name Role Phone Sari Hay MD Primary Care Provider [phone] Reason for Visit * Reason Onset Date Comments Follow-up 09/04/2020 Encounter Details Date Type Department Care Team (Late st Contact Info) Description 09/04/2020 [place] [address] Rod Valdez MD [facility] [place] [address] Follow-up Social History Tobacco Use Types Packs/Day [...] on filedocumented in this encounter Care Teams Clockmaker Relationship Specialty Start Date End Date Sari Hay MD [facility] [address] [facility] 1 [place] [address] PCP - General 05/21/11 documented as of this encounter
--- OUTSIDE RECORDS SUMMARY | 2024-05-09 04:25 | XMS_ITS | Encounter Summary ---
Author Organization [facility] [place] [address] Care Team Providers Care Service Order Clerk Name Role Phone Sari Hay MD Primary Care Provider [phone] Encounter Details Date Type Department Care Team (Late st Contact Info) Description 04/10/2020 [place] [phone] Prisca Mcdaniel, RN Social History Tobacco Use [...] on filedocumented in this encounter Care Teams Service Order Clerk Relationship Specialty Start Date End Date Sari Hay MD [facility] [address] [place] [address] PCP - General 05/21/11 documented as of this encounter
--- OUTSIDE RECORDS SUMMARY | 2024-05-09 04:26 | XMS_ITS | Encounter Summary ---
Author Organization [facility] [place] [address] Care Team Providers Care Bariatric Surgeon Name Role Phone Sari Hay MD Primary Care Provider [phone] Encounter Details Date Type Department Care Team (Late st Contact Info) Description 04/05/2019 [place] [phone] Randal Rothman, RN Social History Tobacco Use [...] Rothman RN - 04/05/2019 3:29 PM EDT [facility] [phone] fax documented in this encounter Plan of Treatment Not on file documented as of this encounter Visit Diagnoses Diagnosis Status post left knee replacement documented in this encounter Care Teams Bariatric Surgeon Relationship Specialty Start Date End Date Sari Hay MD [address] [facility] 1 [place] [address] PCP - General 05/21/11 documented as of this encounter
--- OUTSIDE RECORDS SUMMARY | 2024-05-09 04:26 | XMS_ITS | Encounter Summary ---
Author Organization [facility] Address [facility] [place] [address] Care Team Providers Care Event Decorator And Designer Name Role Phone Sari Hay MD Primary Care Provider Encounter Details Date Type Department Care Team (Late st Contact Info) Description 03/14/2019 Orders [place] [address] Renato Burton MD [facility] [place] [address] Infection of prosthetic joint, subsequent encounter; Encounter [...] antibiotics documented in this encounter Care Teams Event Decorator And Designer Relationship Specialty Start Date End Date Sari Hay MD [address] [place] [address] PCP - General 05/21/11 documented as of this encounter
--- OUTSIDE RECORDS SUMMARY | 2024-05-09 04:26 | XMS_ITS | Encounter Summary ---
Author Organization [facility] Address [facility] [place] [address] Care Team Providers Care Deckhand Shrimp Boat Name Role Phone Sari Hay MD Primary Care Provider [phone] Reason for Referral * Consultation (Routine) - Duplicate Referral Specialty Diagnoses / Procedures Referred By Contac t Referred To Contact Infectious Diseases Diagnoses Infection associated with internal left knee prosthesis, initial encounter Alma Matthew MD [facility] [address] Alma Matthew MD [facility] [address] Referral ID Status Reason Start Date Expiration Date Visits Requested Visits Authorized [id number] Duplicate Referral Assume Subset of Care 02/17/2019 02/17/2020 1 1 Encounter Details Date Type Department Care Team (Late st Contact Info) Description 02/17/2019 Orders [place] [address] Alma Matthew MD [facility] [place] [address] Infection associated with internal left knee prosthesis, [...] encounter documented in this encounter Care Teams Deckhand Shrimp Boat Relationship Specialty Start Date End Date Sari Hay MD [facility] [address] [place] [address] PCP - General 05/21/11 documented as of this encounter
--- OUTSIDE RECORDS SUMMARY | 2024-05-09 04:26 | XMS_ITS | Encounter Summary ---
Author Organization [facility] [place] [address] Care Team Providers Care Balling Machine Operator Name Role Phone Sari Hay MD Primary Care Provider Encounter Details Date Type Department Care Team (Late st Contact Info) Description 03/03/2019 Orders [place] [address] [facility] [address] Infection of prosthetic joint, subsequent encounter (Primary [...] Primary documented in this encounter Care Teams Balling Machine Operator Relationship Specialty Start Date End Date Sari Hay MD [address] [place] [address] PCP - General 05/21/11 documented as of this encounter
--- OUTSIDE RECORDS SUMMARY | 2024-05-09 04:26 | XMS_ITS | Encounter Summary ---
Author Organization [facility] Address [facility] [place] [address] Care Team Providers Care Cath Lab Radiology Technician Name Role Phone Sari Hay MD Primary Care Provider [phone] Encounter Details Date Type Department Care Team (Late st Contact Info) Description 03/19/2019 Notes [place] [address] Renato Burton MD [facility] [place] [address] Social History Tobacco Use Types Packs/Day Years [...] ANC of 390 cells. I calls Ms. Eguene the next morning and had her discontinue [...] which time she was just arriving in [place], [place], to visit with family. She reported feeling entirely well, without fever or other systemic or local signs or symptoms of infection. I discussed the case informally with the Hematology attending. Treatement with filgrastim was suggested as an option, to speed up marrow recovery following discontinuation of ceftriaxone. With Ms. Eugene being in [place], this would have been a challenging proposition, [...] arrange for a repeat CBC, either in [place] or locally (depending on when she returns to the area), early next week. I asked her to call [facility] to speak with the ID physician on-call should she have questions or concerns. documented in this encounter Plan of Treatment Not on file documented as of this encounter Visit Diagnoses Not on filedocumented in this encounter Care Teams Cath Lab Radiology Technician Relationship Specialty Start Date End Date Sari Hay MD [address] [place] [address] PCP - General 05/21/11 documented as of this encounter
--- OUTSIDE RECORDS SUMMARY | 2024-05-09 04:26 | XMS_ITS | Encounter Summary ---
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 Left TKA polyswap 02/10/19 ([place]) HPI: Sissy Eugene is a very pleasant [...] Sensory: Normal Quadriceps Strength: 4 Questionnaire Responses: [facility] Surgical Postop Visit 05/18/2019 PROMIS-10 General Health [...] knee surgery Yes Where was ER located? [facility] Date of ER visit 03/18/2019 Reason for [...] replacement documented in this encounter Care Teams Experimental Rocket Sled Mechanic Relationship Specialty Start Date End Date Sari Hay MD [address] [place] [address] PCP - General 05/21/11 documented as of this encounter
--- OUTSIDE RECORDS SUMMARY | 2024-05-09 04:26 | XMS_ITS | Encounter Summary ---
Author Organization [facility] Address [facility] [place] [address] Care Team Providers Care Director Of Adult Epilepsy Name Role Phone Sari Hay MD Primary Care Provider [phone] Reason for Visit * Reason Onset Date Comments Disability Paperwork 02/18/2019 Encounter Details Date Type Department Care Team (Late st Contact Info) Description 02/18/2019 [place] [address] Rod Valdez MD [facility] DR [place] [address] Disability Paperwork Social History Tobacco Use Types [...] on filedocumented in this encounter Care Teams Director Of Adult Epilepsy Relationship Specialty Start Date End Date Sari Hay MD [address] [facility] 1 [place] [address] PCP - General 05/21/11 documented as of this encounter
--- OUTSIDE RECORDS SUMMARY | 2024-05-09 04:26 | XMS_ITS | Encounter Summary ---
Author Organization [facility] [place] [address] Care Team Providers Care Yard General Car Supervisor Name Role Phone Sari Hay MD Primary Care Provider [phone] Encounter Details Date Type Department Care Team (Late st Contact Info) Description 09/05/2019 Ancillary Procedure [place] [address] Sari Hay MD [facility] [address] [place], [place] [id number] Social History Tobacco Use Types Packs/Day Years [...] DX Wrist (09/05/2019 12:00 AM EST) Narrative [facility] - 09/07/2019 11:21 AM EST This exam is auto-finalizing. It's purpose is for storage only. Sari Hay MD IM FILM LIBRARY ORD ERABLES [place], [place] documented in this encounter Visit Diagnoses Not on filedocumented in this encounter Care Teams Yard General Car Supervisor Relationship Specialty Start Date End Date Sari Hay MD [address] [facility] 1 [place] [address] PCP - General 05/21/11 documented as of this encounter
--- OUTSIDE RECORDS SUMMARY | 2024-05-09 04:26 | XMS_ITS | Encounter Summary ---
Author Organization [facility] [place] [address] Care Team Providers Care Right Of Way Cutter Name Role Phone Sari Hay MD Primary Care Provider [phone] Reason for Visit * Reason Comments Follow Up Fracture Closed Colles' fract ure of left radius with routine healing Encounter Details Date Type Department Care Team (Late st Contact Info) Description 10/14/2019 3:30 PM EST Office [place] [address] Closed Colles' fracture of left radius with [...] encounter documented in this encounter Care Teams Right Of Way Cutter Relationship Specialty Start Date End Date Sari Hay MD [address] [place] [address] PCP - General 05/21/11 documented as of this encounter
--- OUTSIDE RECORDS SUMMARY | 2024-05-09 04:26 | XMS_ITS | Encounter Summary ---
Author Organization [facility] Address [facility] [place] [address] Care Team Providers Care Ambulatory Care Name Role Phone Sari Hay MD Primary Care Provider [phone] Reason for Visit * Reason Onset Date Comments Disability Paperwork 03/03/2019 Encounter Details Date Type Department Care Team (Late st Contact Info) Description 03/03/2019 [place] [address] Rod Valdez MD [facility] [place] [address] Disability Paperwork Social History Tobacco Use Types [...] on filedocumented in this encounter Care Teams Ambulatory Care Relationship Specialty Start Date End Date Sari Hay MD [address] [place] [address] PCP - General 05/21/11 documented as of this encounter
--- OUTSIDE RECORDS SUMMARY | 2024-05-09 04:26 | XMS_ITS | Encounter Summary ---
Author Organization [facility] Address [facility] [place] [address] Care Team Providers Care Community Service Director Name Role Phone Sari Hay MD Primary Care Provider [phone] Reason for Visit * Reason Comments Follow Up Fracture cast off l distal ra dius fx DOI 09/05/19 Encounter Details Date Type Department Care Team (Late st Contact Info) Description 09/30/2019 4:00 PM EST Office [place] [address] Gege Harrell, GANESH [facility] [place] [address] Closed Colles' fracture of left radius with [...] NAME: Sissy Eugene AGE: 53 y.o. MR#: [id number] DATE OF VISIT: 09/30/2019 CHIEF COMPLAINT: left [...] having difficulty with sleeping. 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 Past medical [...] encounter documented in this encounter Care Teams Community Service Director Relationship Specialty Start Date End Date Sari Hay MD [address] [facility] 1 [place] [address] PCP - General 05/21/11 documented as of this encounter
--- OUTSIDE RECORDS SUMMARY | 2024-05-09 04:26 | XMS_ITS | Encounter Summary ---
Author Organization [facility] [place] [address] Care Team Providers Care Hand Coper Name Role Phone Sari Hay MD Primary Care Provider [phone] Reason for Referral * Consultation (Routine) - Specialty Diagnoses / Procedures Referred By Emmanuel cisneros Referred To Contact Orthopaedics Diagnoses Pain in wrist, unspecified laterality LEFT WRIST PAIN-? NON DISPLACED FX Sari Hay MD [facility] [address] [facility] 1 [place] [address] [facility] [address] [place] [id number] Referral ID Status Reason Start Date Expiration Date V isits Requested Visits Authorized [id number] Consult, Test & Treat 09/05/2019 12/05/2019 6 6 Encounter Details Date Type Department Care Team (Late st Contact Info) Description 09/05/2019 Telephone [place] [address] Prisca Mcdaniel, RN Social History [...] would like to schedule her [facility] of [facility] where she was seen yesterday. She states [...] laterality documented in this encounter Care Teams Hand Coper Relationship Specialty Start Date End Date Sari Hay MD [address] [place] [address] PCP - General 05/21/11 documented as of this encounter
--- OUTSIDE RECORDS SUMMARY | 2024-05-09 04:26 | XMS_ITS | Encounter Summary ---
Author Organization [facility] Address [facility] [place] [address] Care Team Providers Care Condenser Tester Name Role Phone Sari Hay MD Primary Care Provider [phone] Reason for Visit * Reason Onset Date Comments Medication Refill 03/30/2019 Encounter Details Date Type Department Care Team (Late st Contact Info) Description 03/30/2019 Ref[place] [address] Ellis Saini MD [facility] [place] [address] group home current use of antibiotics Social [...] as of this encounter Visit Diagnoses Diagnosis group home current use of antibiotics Encounter for long-term (current) use of antibiotics documented in this encounter Care Teams Condenser Tester Relationship Specialty Start Date End Date Sari Hay MD [address] [place], [place] [id number] PCP - General 8/17/11 documented as of this encounter
--- OUTSIDE RECORDS SUMMARY | 2024-05-09 04:26 | XMS_ITS | Encounter Summary ---
Author Organization [facility] [place] [address] Care Team Providers Care Swimming Coach Name Role Phone Sari Hay MD Primary Care Provider [phone] Reason for Visit * Reason Onset Date Comments Appointment 09/14/2019 looking to sched ule two new appts Encounter Details Date Type Department Care Team ([facility] Contact Info) Description 09/14/2019 Telephone [place] [address] Celeste Rain Appointment (looking to schedule two [...] on filedocumented in this encounter Care Teams Swimming Coach Relationship Specialty Start Date End Date Sari Hay MD [facility] [address] [place] [address] PCP - General 05/21/11 documented as of this encounter
--- OUTSIDE RECORDS SUMMARY | 2024-05-09 04:26 | XMS_ITS | Encounter Summary ---
Author Organization [facility] Address [facility] [place] [address] Care Team Providers Care Show Card Writer Name Role Phone Sari Hay MD Primary Care Provider [phone] Encounter Details Date Type Department Care Team (Latest Contact Info) Description 09/30/2019 2:54 PM EST - 09/30/2019 11:59 PM [facility] Hospital Encounter XRay at [address] [place] [address] Ammy Latham MD [facility] [place] [address] Closed Colles' fracture of left radius, initial [...] encounter documented in this encounter Care Teams Show Card Writer Relationship Specialty Start Date End Date Sari Hay MD [facility] [address] [place] [address] PCP - General 05/21/11 documented as of this encounter
--- OUTSIDE RECORDS SUMMARY | 2024-05-09 04:26 | XMS_ITS | Encounter Summary ---
Author Organization [facility] [place] [address] Care Team Providers Care Physical Meteorologist Name Role Phone Sari Hay MD Primary Care Provider [phone] Encounter Details Date Type Department Care Team (Late st Contact Info) Description 03/11/2019 Notes [place] [phone] Elzbieta Carter, RN Social History Tobacco Use [...] precipitated a visit to the ED at [facility] ([facility]). I requested that a faxed copy of the ED visit be sent to the ID [facility] for Dr. Michael Lerner to review. After reviewing the notes from [facility], Dr. Lerner requested that I remind Yoko [...] @ 09:30. Elzbieta Carter, RN, OPAT Pager [phone] documented in this encounter Plan of Treatment Not on file documented as of this encounter Visit Diagnoses Not on filedocumented in this encounter Care Teams Physical Meteorologist Relationship Specialty Start Date End Date Sari Hay MD [address] [place] [address] PCP - General 05/21/11 documented as of this encounter
--- OUTSIDE RECORDS SUMMARY | 2024-05-09 04:26 | XMS_ITS | Encounter Summary ---
[place] [address] Care Team Providers Care Yard Operator Name Role Phone Sari Hay MD Primary Care Provider [phone] Reason for Visit * Reason Onset Date Comments Medication Refill 06/03/2019 Encounter Details Date Type Department Care Team (Late st Contact Info) Description 06/03/2019 Refill [place] [address] Juan A Dalal, RN extermination inspector current use of antibiotics Social History Tobacco [...] as of this encounter Visit Diagnoses Diagnosis [facility] current use of antibiotics Encounter for long-term (current) use of antibiotics documented in this encounter Care Teams Yard Operator Relationship Specialty Start Date End Date Sari Hay MD [address] [place] [address] PCP - General 05/21/11 documented as of this encounter
--- OUTSIDE RECORDS SUMMARY | 2024-05-09 04:26 | XMS_ITS | Encounter Summary ---
Author Organization [facility] Address [facility] [place] [address] Care Team Providers Care Clay Dry Press Mixer Operator Name Role Phone Sari Hay MD Primary Care Provider [phone] Reason for Visit * Reason Comments Left Arm Fracture left distal radial F X DOI 09/05/19 * Consultation (Routine) - Specialty Diagnoses / Procedures Referred By Emmanuel cisneros Referred To Contact Orthopaedics Diagnoses Pain in wrist, unspecified laterality LEFT WRIST PAIN-? NON DISPLACED FX Sari Hay MD [address] [place] [address] [facility] 1 [place] [address] [facility] [address] [place] [phone] Referral ID Status Reason Start Date Expiration Date V isits Requested Visits Authorized [id number] Consult, Test & Treat 09/05/2019 12/05/2019 6 6 Encounter Details Date Type Department Care Team (Late st Contact Info) Description 09/14/2019 1:30 PM EST Office [place] [address] Gege Harrell PA [facility] [place] [address] Closed Colles' fracture of left [...] NAME: Sissy Eugene AGE: 53 y.o. MR#: [id number] DATE OF VISIT: 09/14/2019 CHIEF COMPLAINT: left [...] is right hand dominant. 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 Past medical [...] ? Electronically signed by: Pilar Goss MD, [facility] ([phone]), at 09/30/2019 4:15 PM Narrative 09/30/2019 4:15 [...] encounter documented in this encounter Care Teams Clay Dry Press Mixer Operator Relationship Specialty Start Date End Date Sari Hay MD [address] [place] [address] PCP - General 05/21/11 documented as of this encounter
--- OUTSIDE RECORDS SUMMARY | 2024-05-09 04:26 | XMS_ITS | Encounter Summary ---
Author Organization [facility] [place] [address] Care Team Providers Care Service Unit Operator Oil Well Name Role Phone Sari Hay MD Primary Care Provider [phone] Reason for Visit * Reason Onset Date Comments Other 07/26/2019 Antibiotic refil l Encounter Details Date Type Department Care Team ([facility] st Contact Info) Description 07/26/2019 Telephone [place] [phone] Andria Finch RN Other (Antibiotic refill) Social [...] - 07/26/2019 9:25 AM EDT Marjorie karlie Nokori is dispensing amoxicillin 2000 mg. [phone] * Telephone Encounter - Andria Finch RN - 07/26/2019 8:52 AM EDT Patient called requesting antibiotic refill prior to dental work today. Per 05/18/[address] Valdez 2gm ampicillin needed. Patient confirmed no allergy to this med. Request [facility]. Script refilled as requested for dental procedure today. documented in this encounter Plan of Treatment Not on file documented as of this encounter Visit Diagnoses Diagnosis Infection associated with internal right knee prosthesis, initial encounter documented in this encounter Care Teams Service Unit Operator Oil Well Relationship Specialty Start Date End Date Sari Hay MD [address] [place] [address] PCP - General 05/21/11 documented as of this encounter
--- OUTSIDE RECORDS SUMMARY | 2024-05-09 04:26 | XMS_ITS | Encounter Summary ---
Author Organization [facility] [place] [address] Care Team Providers Care Api Developer Name Role Phone Sari Hay MD Primary Care Provider [phone] Reason for Visit * Reason Comments Follow-up Closed Colles' fract ure of left radius with routine healing, subsequent encounter Encounter Details Date Type Department Care Team (Late st Contact Info) Description 09/30/2019 3:00 PM EST Office [place] [address] Closed Colles' fracture of left radius with [...] encounter documented in this encounter Care Teams Api Developer Relationship Specialty Start Date End Date Sari Hay MD [address] [facility] 1 [place] [address] PCP - General 05/21/11 documented as of this encounter
--- OUTSIDE RECORDS SUMMARY | 2024-05-09 04:26 | XMS_ITS | Encounter Summary ---
Author Organization [facility] [place] [address] Care Team Providers Care Mink Farmer Name Role Phone Sari Hay MD Primary Care Provider [phone] Reason for Visit * Reason Onset Date Comments Medication Refill 03/30/2019 Encounter Details Date Type Department Care Team (Late st Contact Info) Description 03/30/2019 Refill [place] [address] Juan A Dalal RN Social History Tobacco [...] on filedocumented in this encounter Care Teams Mink Farmer Relationship Specialty Start Date End Date Sari Hay MD [facility] [address] [place] [address] PCP - General 05/21/11 documented as of this encounter
--- OUTSIDE RECORDS SUMMARY | 2024-05-09 04:26 | XMS_ITS | Encounter Summary ---
Author Organization [facility] Address [facility] [place] [address] Care Team Providers Care Acoustical Installer Name Role Phone Sari Hay MD Primary Care Provider [phone] Reason for Visit * Reason Comments Medication Refill Encounter Details Date Type Department Care Team (Late st Contact Info) Description 04/04/2019 [place] [address] Renato Burton MD [facility] [place] [address] Social History Tobacco Use Types Packs/Day Years [...] on filedocumented in this encounter Care Teams Acoustical Installer Relationship Specialty Start Date End Date Sari Hay MD [address] [place], [place] [id number] PCP - General 05/21/11 documented as of this encounter
--- OUTSIDE RECORDS SUMMARY | 2024-05-09 04:26 | XMS_ITS | Encounter Summary ---
Author Organization [facility] [place] [address] Care Team Providers Care Environmental Science Professor Name Role Phone Sari Hay MD Primary Care Provider [phone] Encounter Details Date Type Department Care Team (Late st Contact Info) Description 03/25/2019 Notes Only [place] [phone] Elzbieta Carter, RN Social History Tobacco Use [...] from her blood drawn this forenoon at [facility]. Results reviewed by Dr. Alma Matthew (covering [...] CBC w/Diff on 03/30/19. Order faxed to [facility] Laboratory. I phoned Ana Rosa with this update. Elzbieta Carter, RN, OPAT Program Pager [phone] documented in this encounter Plan of Treatment Not on file documented as of this encounter Visit Diagnoses Not on filedocumented in this encounter Care Teams Environmental Science Professor Relationship Specialty Start Date End Date Sari Hay MD [address] [facility] 1 [place] [address] PCP - General 05/21/11 documented as of this encounter
--- OUTSIDE RECORDS SUMMARY | 2024-05-09 04:26 | XMS_ITS | Encounter Summary ---
Author Organization [facility] Address [facility] [place] [address] Care Team Providers Care Front Office Java Developer Name Role Phone Sari Hay MD Primary Care Provider [phone] Encounter Details Date Type Department Care Team (Latest Contact Info) Description 03/09/2019 1:28 PM EDT - 03/09/2019 11:59 PM EDT Hospital Encounter XRay at [address] [place] [address] Infection associated with internal right knee prosthesis, [...] encounter documented in this encounter Care Teams Front Office Java Developer Relationship Specialty Start Date End Date Sari Hay MD [facility] [address] [place] [address] PCP - General 05/21/11 documented as of this encounter
--- OUTSIDE RECORDS SUMMARY | 2024-05-09 04:26 | XMS_ITS | Encounter Summary ---
Author Organization [facility] [place] [address] Care Team Providers Care Forensic Identification Specialist Name Role Phone Sari Hay MD Primary Care Provider [phone] Encounter Details Date Type Department Care Team (Late st Contact Info) Description 07/01/2019 Telephone [place] [phone] Juan A Dalal RN Social History Tobacco [...] on filedocumented in this encounter Care Teams Forensic Identification Specialist Relationship Specialty Start Date End Date Sari Hay MD [address] [place] [address] PCP - General 05/21/11 documented as of this encounter
--- OUTSIDE RECORDS SUMMARY | 2024-05-09 04:26 | XMS_ITS | Encounter Summary ---
Author Organization [facility] [place] [address] Care Team Providers Care Travelift Operator Name Role Phone Sari Hay MD Primary Care Provider [phone] Encounter Details Date Type Department Care Team (Late st Contact Info) Description 03/16/2019 Orders [place] [address] Renato Burton MD [facility] [place] [address] Neutropenia, drug-induced Social History Tobacco Use Types [...] neutropenia documented in this encounter Care Teams Travelift Operator Relationship Specialty Start Date End Date Sari Hay MD [address] [place], [place] [id number] PCP - General 05/21/11 documented as of this encounter
--- OUTSIDE RECORDS SUMMARY | 2024-05-09 04:26 | XMS_ITS | Encounter Summary ---
Author Organization [facility] Address [facility] [place] [address] Care Team Providers Care Administration Professional Name Role Phone Sari Hay MD Primary Care Provider [phone] Reason for Visit * Reason Onset Date Comments Bumped Appointment 09/21/2019 Encounter Details Date Type Department Care Team (Late st Contact Info) Description 09/21/2019 [place] [phone] Gege Harrell PA [facility] [place] [address] Bumped Appointment Social History Tobacco Use Types [...] on filedocumented in this encounter Care Teams Administration Professional Relationship Specialty Start Date End Date Sari Hay MD [address] [place] [address] PCP - General 05/21/11 documented as of this encounter
--- OUTSIDE RECORDS SUMMARY | 2024-05-09 04:26 | XMS_ITS | Encounter Summary ---
Author Organization [facility] Address [facility] [place] [address] Care Team Providers Care Recreation Engineer Name Role Phone Sari Hay MD Primary Care Provider Reason for Referral * Physical Therapy (Routine) - Specialty Diagnoses / Procedures Referred By Emmanuel cisneros Referred To Contact Physical Therapy Diagnoses Infection associated with internal right knee prosthesis, initial encounter Status post left knee replacement Teressa Taylor PA [facility] [place] [address] Referral ID Status Reason Start Date Expiration Date V isits Requested Visits Authorized [id number] Evaluate and Treat 03/09/2019 09/05/2019 1 1 Reason for Visit * Reason Comments Post Op left knee I&D Encounter Details Date Type Department Care Team (Late st Contact Info) Description 03/09/2019 2:30 PM EDT Office [place] [address] Rod Valdez MD [facility] [place] [address] Infection associated with internal right knee prosthesis, [...] Left TKA 2. Left TKA polyswap 02/10/19 ([place]) HPI: Sissy Eugene is a very pleasant [...] subsidence, loosening, or periprosthetic complication. Questionnaire Responses: [facility] Surgical Postop Visit 03/09/2019 PROMIS-10 General Health [...] surgery on same body part Yes [facility] Surgeon Mary Lou Date of surgery 01/17/2019 Reason for surgery Remove scar tissue from knee replacement 09/20 TKA Grade 3 Pain in other KNEE Moderate Back pain at this moment None Satisfaction with Treatment Satisfied Choose Same Treatment Again Definitely yes Orthopeadics [facility] Response 03/09/2019 KOOS JR Scores 57.14 Spine [facility] Response 03/09/2019 KOOS JR Scores 57.14 ASSESSMENT/PLAN: [...] replacement documented in this encounter Care Teams Recreation Engineer Relationship Specialty Start Date End Date Sari Hay MD [address] [place] [address] PCP - General 05/21/11 documented as of this encounter
--- OUTSIDE RECORDS SUMMARY | 2024-05-09 04:26 | XMS_ITS | Encounter Summary ---
Author Organization [facility] [place] [address] Care Team Providers Care Bus Or Truck Garage Mechanic Name Role Phone Sari Hay MD Primary Care Provider [phone] Encounter Details Date Type Department Care Team (Late st Contact Info) Description 03/22/2019 Orders [place] [address] Renato Burton MD [facility] [place] [address] Neutropenia, drug-induced Social History Tobacco Use Types [...] neutropenia documented in this encounter Care Teams Bus Or Truck Garage Mechanic Relationship Specialty Start Date End Date Sari Hay MD [address] [place], [place] [id number] PCP - General 05/21/11 documented as of this encounter
--- OUTSIDE RECORDS SUMMARY | 2024-05-09 04:26 | XMS_ITS | Encounter Summary ---
Author Organization [facility] Address [facility] [place] [address] Care Team Providers Care Behavioral Health Case Manager Name Role Phone Sari Hay MD Primary Care Provider Encounter Details Date Type Department Care Team (Late st Contact Info) Description 04/04/2019 [place] [address] Karen Nixon MD [facility] [place] [address] Infection associated with internal right knee prosthesis, [...] encounter documented in this encounter Care Teams Behavioral Health Case Manager Relationship Specialty Start Date End Date Sari Hay MD [facility] [address] [place] [address] PCP - General 05/21/11 documented as of this encounter
--- OUTSIDE RECORDS SUMMARY | 2024-05-09 04:26 | XMS_ITS | Encounter Summary ---
Author Organization [facility] [place] [address] Care Team Providers Care Manager Field Name Role Phone Sari Hay MD Primary Care Provider [phone] Reason for Visit * Reason Comments Follow Up Fracture Closed Colles' fract ure of left radius Encounter Details Date Type Department Care Team (Late st Contact Info) Description 09/14/2019 1:45 PM EST Office Visit [place] [address] Closed Colles' fracture of left radius with [...] encounter documented in this encounter Care Teams Manager Field Relationship Specialty Start Date End Date Sari Hay MD [facility] [address] [facility] 1 [place] [address] PCP - General 05/21/11 documented as of this encounter
--- OUTSIDE RECORDS SUMMARY | 2024-05-09 04:26 | XMS_ITS | Encounter Summary ---
Author Organization [facility] Address [facility] [place] [address] Care Team Providers Care Ammunition And Explosives Handler Name Role Phone Sari Hay MD Primary Care Provider [phone] Reason for Visit * Reason Comments Follow-up Aftercare, Group Home Use Meds * Consultation (Routine) - Specialty Diagnoses / Procedures Referred By Emmanuel cisneros Referred To Contact Infectious Diseases Diagnoses Pyogenic arthritis of left knee joint, due to unspecified organism Infection associated with internal right knee prosthesis, subsequent encounter Encounter for long-term (current) use of antibiotics Alma Matthew MD [facility] [place] [address] Alma Matthew MD [facility] [place] [address] Referral ID Status Reason Start Date Expiration Date V isits Requested Visits Authorized [id number] Assume Subset of Care 02/15/2019 02/15/2020 1 1 Encounter Details Date Type Department Care Team (Late st Contact Info) Description 03/03/2019 10:00 AM EDT Office [place] [address] Naina King DO 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 [...] data in the Journal of Antimicrobial chemotherapy doi:[email or web address]/[email or web address] and 4 weeks of IV therapy for [...] EKG 12-LEAD Routine 03/03/2019 11:47 AM EDT half-way current use of antibiotics documented in this encounter Results * EKG 12 Lead (03/03/2019 11:47 AM EDT) Ventricular rate 69 BPM MUSE SYSTEM Atrial Rate 69 BPM MUSE SYSTEM P-R Interval 188 ms MUSE SYSTEM QRS Duration 80 ms MUSE SYSTEM Q-T Interval 422 ms MUSE SYSTEM QTC Calculated (Bezet) 452 ms MUSE SYSTEM Calculated P [place] 41 degrees MUSE SYSTEM Calculated R [place] 59 degrees MUSE SYSTEM Calculated T [place] 56 degrees MUSE SYSTEM INTERPRETATION Normal sinus rhythm Nonspecific ST abnormality Abnormal ECG No previous ECGs available Confirmed by CATHERINE, ??DELPHINE MELGAR ([id number]) on 03/04/2019 6:29:58 AM MUSE SYSTEM 03/03/2019 11:4 7 AM EDT 03/04/2019 6:29 AM EDT Michael Lerner MD ECG ORDERABLES MUSE SYSTEM documented in this encounter Visit Diagnoses Diagnosis hot kettle tender current use of antibiotics Encounter for long-term (current) use of antibiotics Medication management Encounter for long-term (current) use of other medications Infection associated with internal left knee prosthesis, subsequent encounter Staphylococcal infection Unspecified staphylococcus infection in conditions classified elsewhere and of unspecified site documented in this encounter Care Teams Ammunition And Explosives Handler Relationship Specialty Start Date End Date Sari Hay MD [address] [facility] 1 [place] [address] PCP - General 05/21/11 documented as of this encounter
--- OUTSIDE RECORDS SUMMARY | 2024-05-09 04:26 | XMS_ITS | Encounter Summary ---
Author Organization [facility] Address [facility] [place] [address] Care Team Providers Care Buildings And Grounds Superintendent Name Role Phone Sari Hay MD Primary Care Provider [phone] Reason for Visit * Reason Comments Medication Refill Encounter Details Date Type Department Care Team (Late st Contact Info) Description 07/05/2019 Ref[place] [address] Renato Burton MD [facility] [place] [address] Social History Tobacco Use Types Packs/Day Years [...] on filedocumented in this encounter Care Teams Buildings And Grounds Superintendent Relationship Specialty Start Date End Date Sari Hay MD [facility] [address] MA[address] [facility] 1 [place] [address] PCP - General 05/21/11 documented as of this encounter
--- OUTSIDE RECORDS SUMMARY | 2024-05-09 04:26 | XMS_ITS | Encounter Summary ---
Author Organization [facility] Address [facility] [place] [address] Care Team Providers Care Relations Manager Name Role Phone Sari Hay MD Primary Care Provider [phone] Encounter Details Date Type Department Care Team (Late st Contact Info) Description 03/25/2019 Orders [place] [address] Alma Matthew MD [facility] [place] [address] Neutropenia, drug-induced Social History Tobacco Use Types [...] neutropenia documented in this encounter Care Teams Relations Manager Relationship Specialty Start Date End Date Sari Hay MD [address] [place], [place] [id number] PCP - General 05/21/11 documented as of this encounter
--- OUTSIDE RECORDS SUMMARY | 2024-05-09 04:26 | XMS_ITS | Encounter Summary ---
Author Organization [facility] Address [facility] [place] [address] Care Team Providers Care Kitchen And Counter Worker Name Role Phone Sari Hay MD Primary Care Provider [phone] Encounter Details Date Type Department Care Team (Late st Contact Info) Description 07/04/2019 4:30 PM EDT Office [place] [address] Michael Lerner MD [facility] [place] [address] mixer operator raw salt current use of antibiotics; Medication management; Infection [...] rifampin 300mg PO BID. 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 Michael Lerner MD documented in this encounter Plan of Treatment Not on file documented as of this encounter Procedures Procedure Name Priority Date/Time Associated Diagnosis Comments HC C-REACTIVE PROTEIN Routine 07/04/2019 5:45 PM EDT mixer operator raw salt current use of antibiotics Medication management Infection associated with internal left knee prosthesis, subsequent encounter HEMOGRAM Routine 07/04/2019 5:45 PM EDT mixer operator raw salt current use of antibiotics Medication management Infection associated with internal left knee prosthesis, subsequent encounter DIFFERENTIAL, AUTOMATED Routine 07/04/2019 5:45 PM EDT mixer operator raw salt current use of antibiotics Medication management Infection associated with internal left knee prosthesis, subsequent encounter HC CBC,PLT & AUTO DIFF Routine 07/04/2019 5:45 PM EDT mixer operator raw salt current use of antibiotics Medication management Infection associated with internal left knee prosthesis, subsequent encounter HC VENIPUNCTURE Routine 07/04/2019 5:45 PM EDT mixer operator raw salt current use of antibiotics Medication management Infection associated with internal left knee prosthesis, subsequent encounter EKG 12-LEAD Routine 07/04/2019 5:30 PM EDT mixer operator raw salt current use of antibiotics Medication management Infection associated with internal left knee prosthesis, subsequent encounter documented in this encounter Results * Differential, Automated (07/04/2019 5:45 PM EDT) Neutrophil % 47.2 % [facility] Neutrophil Absolute 3.25 1.70 - 6.10 x10(3)/[facility] Lymph % 40.3 % [facility] Lymphocytes Abs 2.8 0.9 - 3.2 x10(3)/[facility] LAB[facility] Monocyte % 8.6 % [facility] Monocyte Abs 0.6 0.3 - 0.9 x10(3)/[facility] LAB[facility] Eos % 2.8 % [facility] Eosinophils Abs 0.2 0.0 - 0.4 x10(3)/[facility] LAB[facility] Basophil % 1.0 % [facility] Baso Absolute 0.1 0.0 - 0.1 x10(3)/[facility] LABOR[facility]ORY Immature Gran % 0.10 % [facility] Comment: Immature granulocytes(IG's)percentage and absolute count will include metamyelocytes, myelocytes, and promyelocytes. Blood smears from CBCs yielding IG's will be scanned manually for concordance. If this scan disagrees with the automated IG or if promyelocytes are noted, a manual differential will be performed. Immature Gran Absolute 0.01 0.00 - 0.04 x10(3)/[facility] LABORATORY Blood specimen (specimen) 07/04/2019 5:45 PM EDT 07/04/2019 5:59 PM EDT Narrative Resulting Agency Comment Spec In Lab Michael Lerner MD HEMATOLOGY ORDER DEVAN Performing Organization Address City/[facility]/ZIP Co de Phone Number [facility] [place] [address] * (ABNORMAL) Hemogram (07/04/2019 5:45 PM EDT) White Blood Cell 6.9 4.0 - 9.5 x10(3)/mc L [facility] Red Blood Cell 5.17 4.00 - 5.21 x10(6)/mc L [facility] Hemoglobin 14.6 11.7 - 15.5 gm/dL [facility] Hematocrit 43.4 35.7 - 45.8 % [facility] Mean Cell Volume 83.9 82.6 - 94.4 fL [facility] Mean Cell Hemoglobin 28.2 27.1 - 32.0 pg [facility] Mean Cell Hemoglobin Concentration 33.6 31.7 - 35.0 gm/dL [facility] Platelet 241 145 - 357 x10(3)/mc L [facility] RDW Standard Deviation 45.1 37.0 - 46.0 fL [facility] RDW coefficient of variation 14.7(H) 11.5 - 14.1 % [facility] Mean Platelet Volume 10.2 7.6 - 12.9 fL [facility] NRBC% auto 0.0 % [facility] NRBC Absolute 0.000 0.000 - 0.000 x10(3)/mc L [facility] Blood specimen (specimen) 07/04/2019 5:45 PM EDT 07/04/2019 5:59 PM EDT Narrative Resulting Agency Comment Spec In Lab Michael Lerner MD HEMATOLOGY ORDER DEVAN Performing Organization Address City/[facility]/ZIP Co de Phone Number [facility] [place] [address] * (ABNORMAL) Comprehensive metabolic panel (non-fasting) (07/04/2019 5:45 PM EDT) Glucose 91 65 - 199 mg/dL [facility] Comment:Diabetes: >=200 mg/d L plus symptoms Blood Urea Nitrogen 15 8 - 18 mg/dL [facility] Creatinine 0.79 0.70 - 1.20 mg/dL [facility] Sodium 142 135 - 145 mmol/L [facility] Potassium 3.9 3.5 - 5.0 mmol/L [facility] Comment: Please note: ??Patients with WBC >100,000 may have falsely elevated Potassium levels. ??For accurate Potassium quantification in these patients send serum separator tube (gold top) for subsequent determinations. ??Contact the Clinical Chemistry Laboratory if there are any questions. Chloride 104 98 - 107 mmol/L [facility] Carbon Dioxide 26 22 - 31 mmol/L [facility] Anion Gap 12 5 - 15 mmol/L [facility] Calcium 9.8 8.5 - 10.5 mg/dL [facility] Protein, Total 7.2 6.1 - 8.0 gm/dL [facility] Albumin 4.7 3.2 - 5.2 gm/dL [facility] Aspartate Aminotransferase 21 0 - 30 unit/L [facility] Alanine Aminotransferase 19 0 - 30 unit/L [facility] Alkaline Phosphatase 128(H) 35 - 105 unit/L [facility] Bilirubin, Total 0.2 0.2 - 1.3 mg/dL [facility] Est Glomerular Filtration Rate 84 >=60 mL/min/1. 73 m?? [facility] Comment: The eGFR was calculated using the CKD-EPI equation. As with all creatinine based estimates of kidney function, eGFR values calculated with the CKD-EPI equation are not accurate in patients with acute kidney failure, extremes of body mass or the acutely ill. http://[employer]/DHnkf eGFR 98 >=60 mL/min/1. 73 m?? [facility] Comment: The eGFR was calculated using the CKD-EPI equation. As with all creatinine based estimates of kidney function, eGFR values calculated with the CKD-EPI equation are not accurate in patients with acute kidney failure, extremes of body mass or the acutely ill. http://[employer]/DHMCnkf Blood specimen (specimen) 07/04/2019 5:45 PM EDT 07/04/2019 5:59 PM EDT Narrative Resulting Agency Comment Spec In Lab Michael Lerner MD CHEMISTRY ORDERA BLES Performing Organization Address [facility] Co de Phone Number [facility] [place] [address] * (ABNORMAL) CRP, acute inflammation (07/04/2019 5:45 PM EDT) C-Reactive Protein 5.1(H) <=4.9 mg/L [facility] Blood specimen (specimen) 07/04/2019 5:45 PM EDT 07/04/2019 5:59 PM EDT Narrative Resulting Agency Comment Spec In Lab Michael Lerner MD CHEMISTRY ORDERA BLES Performing Organization Address [facility] Co de Phone Number [facility] [place] [address] * EKG 12 Lead (07/04/2019 5:30 PM EDT) Ventricular rate 46 BPM MUSE SYSTEM Atrial Rate 46 BPM MUSE SYSTEM P-R Interval 200 ms MUSE SYSTEM QRS Duration 86 ms MUSE SYSTEM Q-T Interval 486 ms MUSE SYSTEM QTC Calculated (Bezet) 425 ms MUSE SYSTEM Calculated P [place] 47 degrees MUSE SYSTEM Calculated R [place] 38 degrees MUSE SYSTEM Calculated T [place] 42 degrees MUSE SYSTEM INTERPRETATION Marked sinus bradycardia Otherwise normal ECG When compared with ECG of 03-MAR-2019 11:47, Vent. rate has decreased BY ??23 BPM Confirmed by MD JEONG BRUCE ([id number]) on 07/06/2019 8:58:54 AM MUSE SYSTEM 07/04/2019 5:30 PM EDT 07/06/2019 8:58 AM EDT Michael Lerner MD ECG ORDERABLES SILVER SYSTEM documented in this encounter Visit Diagnoses Diagnosis [facility] current use of antibiotics Encounter for long-term (current) use of antibiotics Medication management Encounter for long-term (current) use of other medications Infection associated with internal left knee prosthesis, subsequent encounter Staphylococcal infection Unspecified staphylococcus infection in conditions classified elsewhere and of unspecified site Nausea without vomiting Weight loss Loss of weight documented in this encounter Care Teams Kitchen And Counter Worker Relationship Specialty Start Date End Date Sari Hay MD [address] [place] [address] PCP - General 05/21/11 documented as of this encounter
--- OUTSIDE RECORDS SUMMARY | 2024-05-09 04:26 | XMS_ITS | Encounter Summary ---
Author Organization [facility] Address [facility] [place] [address] Care Team Providers Care Surgical Assistant Certified Name Role Phone Sari Hay MD Primary Care Provider [phone] Encounter Details Date Type Department Care Team (Latest Contact Info) Description 09/14/2019 11:06 AM EST - 09/14/2019 11:59 PM [facility] Hospital Encounter XRay at [address] [place] [address] Sachin Yang MD [facility] [address] Closed fracture of distal end of left [...] please contact the number below. ? Narrative 09/14/2019 3:48 PM EST EXAMINATION: XR [...] this report, please contact the number below. Sachin Yang MD IMG DX ORDERABLES documented in this encounter Visit Diagnoses Diagnosis Closed fracture of distal end of left radius with routine healing, unspecified fracture morphology, subsequent encounter documented in this encounter Care Teams Surgical Assistant Certified Relationship Specialty Start Date End Date Sari Hay MD [address] [place] [address] PCP - General 05/21/11 documented as of this encounter
--- OUTSIDE RECORDS SUMMARY | 2024-05-09 04:26 | XMS_ITS | Encounter Summary ---
Author Organization [facility] Address [facility] [place] [address] Care Team Providers Care Mincing Machine Operator Name Role Phone Sari Hay MD Primary Care Provider [phone] Encounter Details Date Type Department Care Team (Late st Contact Info) Description 03/22/2019 Notes Only [place] [address] Renato Burton MD [facility] [place] [address] Social History Tobacco Use Types Packs/Day Years [...] on filedocumented in this encounter Care Teams Mincing Machine Operator Relationship Specialty Start Date End Date Sari Hay MD [address] [place] [address] PCP - General 05/21/11 documented as of this encounter
--- OUTSIDE RECORDS SUMMARY | 2024-05-09 04:26 | XMS_ITS | Encounter Summary ---
Author Organization [facility] [address] Care Team Providers Care Wool And Pelt Grader Name Role Phone Sari Hay MD Primary Care Provider [phone] Encounter Details Date Type Department Care Team (Late st Contact Info) Description 07/01/2019 Telephone [place] [address] Juan A Dalal RN Social History Tobacco [...] on 02/09 for knee swelling, admitted to [facility] for prosthetic joint infection??s/p??poly-swap 02/10/2019. 03/03/2019 ID [...] on filedocumented in this encounter Care Teams Wool And Pelt Grader Relationship Specialty Start Date End Date Sari Hay MD [address] [place] [address] PCP - General 05/21/11 documented as of this encounter
--- OUTSIDE RECORDS SUMMARY | 2024-05-09 04:26 | XMS_ITS | Encounter Summary ---
Author Organization [facility] Address [facility] [place] [address] Care Team Providers Care Piecer Up Name Role Phone Sari Hay MD Primary Care Provider Encounter Details Date Type Department Care Team (Late st Contact Info) Description 02/18/2019 Orders [place] [address] Renato Burton MD [facility] [place] [address] Social History Tobacco Use Types Packs/Day Years [...] on filedocumented in this encounter Care Teams Piecer Up Relationship Specialty Start Date End Date Sari Hay MD [address] [place] [address] PCP - General 05/21/11 documented as of this encounter
--- OUTSIDE RECORDS SUMMARY | 2024-05-09 04:26 | XMS_ITS | Encounter Summary ---
Author Organization [facility] [place] [address] Care Team Providers Care Him Tech Name Role Phone Sari Hay MD Primary Care Provider [phone] Encounter Details Date Type Department Care Team (Late st Contact Info) Description 05/20/2019 Telephone [place] [phone] Juan A Dalal RN Social History Tobacco [...] left at home while on travel in [place]. Spoke with patient and she has made a plan to have local [facility] call her pharmacy [facility] for a short supply of Rifampin and Cipro. documented in this encounter Plan of Treatment Not on file documented as of this encounter Visit Diagnoses Not on filedocumented in this encounter Care Teams Him Tech Relationship Specialty Start Date End Date Sari Hay MD [address] [place] [address] PCP - General 05/21/11 documented as of this encounter
--- OUTSIDE RECORDS SUMMARY | 2024-05-09 04:27 | XMS_ITS | Encounter Summary ---
Author Organization [facility] Address [facility] [place] [address] Care Team Providers Care Circuit Design Engineer Name Role Phone Sari Hay MD Primary Care Provider [phone] Reason for Visit * Reason Comments Follow Up Surgery Left Foot Ostetomy D OS 10/01/15 Encounter Details Date Type Department Care Team (Late st Contact Info) Description 10/25/2015 11:30 AM EST Office Visit [place] [address] Stanley Koo MD [facility] DR ORTHOPAEDIC [place] [address] S/P orthopedic surgery, follow-up exam Social History [...] surgery documented in this encounter Care Teams Circuit Design Engineer Relationship Specialty Start Date End Date Sari Hay MD [address] [place] [address] PCP - General 05/21/11 documented as of this encounter
--- OUTSIDE RECORDS SUMMARY | 2024-05-09 04:27 | XMS_ITS | Encounter Summary ---
Author Organization [facility] Address [facility] [address] [place] [address] Care Team Providers Care Human Resources Executive Assistant Name Role Phone Sari Hay MD Primary Care Provider [phone] Encounter Details Date Type Department Care Team (Latest Contact Info) Description 01/24/2016 8:30 AM EDT - 01/24/2016 11:59 PM EDT Hospital Encounter XRay at [address] [place] [address] Stanley Koo MD [facility] [place] [address] Hammer toe of left foot; S/P orthopedic [...] surgery documented in this encounter Care Teams Human Resources Executive Assistant Relationship Specialty Start Date End Date Sari Hay MD [address] [place] [address] PCP - General 05/21/11 documented as of this encounter
--- OUTSIDE RECORDS SUMMARY | 2024-05-09 04:27 | XMS_ITS | Encounter Summary ---
Author Organization [facility] Address [facility] [place] [address] Care Team Providers Care Central Sterilization Technician Name Role Phone Sari Hay MD Primary Care Provider [phone] Encounter Details Date Type Department Care Team (Late st Contact Info) Description 02/21/2016 Telephone [place] [address] Stanley Koo MD [facility] [place] [address] Social History Tobacco Use Types Packs/Day Years [...] on filedocumented in this encounter Care Teams Central Sterilization Technician Relationship Specialty Start Date End Date Sari Hay MD [address] [place] [address] PCP - General 05/21/11 documented as of this encounter
--- OUTSIDE RECORDS SUMMARY | 2024-05-09 04:27 | XMS_ITS | Encounter Summary ---
Author Organization [facility] [place] [address] Care Team Providers Care Heel Packer Name Role Phone Sari Hay MD Primary Care Provider [phone] Reason for Visit * Reason Comments Follow Up Surgery Left Foot Ostetomy D OS 10/01/15 Encounter Details Date Type Department Care Team (Late st Contact Info) Description 10/11/2015 9:30 AM EST Office [place] [address] Stanley Koo MD [facility] [place] [address] S/P orthopedic surgery, follow-up exam Social History [...] surgery documented in this encounter Care Teams Heel Packer Relationship Specialty Start Date End Date Sari Hay MD [address] [place] [address] PCP - General 05/21/11 documented as of this encounter
--- OUTSIDE RECORDS SUMMARY | 2024-05-09 04:27 | XMS_ITS | Encounter Summary ---
Author Organization [facility] Address [facility] [place] [address] Care Team Providers Care Hunting Sales Leader Name Role Phone Sari Pacheco MD Primary Care Provider [phone] Reason for Visit * Auth/Cert - Closed [...] Expiration Date Visits Re quested Visits Authorized [id number] Closed 1 1 Encounter Details Date Type Department Care Team (Latest Contact Info) Description 10/01/2015 6:15 AM EST - 10/01/2015 9:48 AM [facility] Hospital Encounter [place] [phone] Stanley Koo MD [facility] [place] [address] Hammer toe of left foot Discharge Disposition: [...] to facilitate abowel movement. If needed an [id number] medication, miralax can also be used to [...] Center 10/11/2015 9:30 AM Stanley Koo MD [facility] [address] [place] [address] Contact Information: Your orthopaedic surgeon:Stanley Koo MD: Sports: [phone] If it is after 5:00PM on a weekday or a weekend and it is of an urgent nature please call [phone] and ask for the on-call orthopaedic resident. Your Primary Care Physician: SARI PACHECO MD [phone] General Anesthesia Discharge Instructions Go home and [...] closest emergency room or call the hospital chain hoist operator at [phone] and ask for physician data processing control clerk covering for your physician. Questions or problems after 5pm or on a weekend: Call the [facility] chain hoist operator at and ask for the physician data processing control clerk covering for your doctor. Lower Extremity Nerve [...] after hours and ask for the anesthesiologist data processing control clerk. [facility] Learning About Deep Vein Thrombosis What is [...] more? Visit our health information library at [email or web address]. You can alsoview health information on [employer], your personal patient account. Log in or sign up today. Enter X941 in the search box to learn more about Learning About Deep Vein Thrombosis. ?? [phone] [employer]. Care instructions adapted under license by [facility]. This care instruction is for use with your licensed healthcare professional. If you have questions about a medical condition or this instruction, always ask your healthcare professional. [employer] disclaims any warranty or liability for your use of this information. Content Version: 8.9.05006; Last Revised: November 20, 2009 documented in [...] Operative Note Patient Name: Sissy Eugene : [id number] MR#: [id number] Case Date: 10/01/2015 Surgeon: Surgeon(s) and Role: [...] then fastening it in place with two [id number] FiberWire stitches. The phalanx was found to [...] Operative Note Patient Name: Sissy Eugene : [id number] MR#: [id number] Case Date: 10/01/2015 Surgeon: Surgeon(s) and Role: [...] Associated Diagnoses Date /Time FILM LIBRARY-FLUORO OR C-[id number] ONL Imaging Routine 10/01/2015 8:1 9 AM EST Scheduled Orders Name Type Priority Associated Diagnoses Orde r Schedule FILM LIBRARY-FLUORO OR [id number] ONL Imaging Routine Once PRN (f or [...] CRNA) documented in this encounter Care Teams Hunting Sales Leader Relationship Specialty Start Date End Date Sari Pacheco MD [address] [place] [address] PCP - General 05/21/11 documented as of this encounter
--- OUTSIDE RECORDS SUMMARY | 2024-05-09 04:27 | XMS_ITS | Encounter Summary ---
Author Organization [facility] Address [facility] [place] [address] Care Team Providers Care Underwriting Manager Name Role Phone Sari Hay MD Primary Care Provider [phone] Reason for Visit * Auth/Cert Specialty Diagnoses / Procedures Referred By Emmanuel t Referred To Contact Diagnoses Infection of prosthetic left knee joint Procedures EMERGENCY IPI Referral ID Status Reason Start Date Expiration Date Visits Re quested Visits Authorized [id number] 1 1 Encounter Details Date Type Department Care Team (Late st Contact Info) Description 02/10/2019 11:05 AM EDT Anesthesia Event [place] [address] Andria Cordova MD [facility] [place] [address] Yonatan Hilton MD [facility] [place] [address] Anesthesia Record Procedure Summary Procedure Name Responsible [...] 0000; median cubital vein (antecubital fossa), right; [id number]-tro-dkjvia catheter system; 20 gauge; OSH EXECUTIVE DIRECTOR OF MARKETING; 02/11/19; 0750 02/10/19 0000 by Catrina Crowe, [...] Cordova MD - 02/10/2019 2:09 PM EDT [facility] [place] Department of Anesthesiology Post-procedure Note Patient: Sissy Eugene Procedure Summary Date: 02/10/19 Room / Location: [facility] MAIN OR Anesthesia Start: 1105 Anesthesia Stop: 1356 Procedure: @TOTAL KNEE REVISION ARTHROPLASTY, ONE COMPONENT (WRVU 21.12) (Left Knee) Diagnosis: (Left prosthetic joint infection) Surgeon: Rod Valdez MD Responsible Provider: Andria Cordova MD Anesthesia Type: spinal ASA Status: 2 All Anesthesia Providers: Anesthesiologist: Andria Cordova MD TUBING MILL OPERATOR: Rl Natarajan CRNA Vitals Value Taken Time BP 105/63 02/10/2019 2:00 PM Temp 37.2 ??C (99 ??F) 02/10/2019 1:52 PM Pulse 76 02/10/2019 2:09 PM Resp 17 02/10/2019 2:09 PM SpO2 94 % 02/10/2019 2:09 PM Pain Level 0 02/10/2019 1:52 PM Vitals shown include unvalidated device data. Patient Location: PACU/[facility] Level of Consciousness: Awake and [...] with Dextrose, 15 mg Events/Notes Events: None Resident/TUBING MILL OPERATOR: Rl Natarajan CRNA Second Resident/TUBING MILL OPERATOR: Fellow: Attending Physician: Andria Cordova MD ~~~~~~~~~~~~~~~~~~~~~~~~~~~~~~~~~~~~~~~~~~~~~~~~~~~~~~~~~~~~ [...] hygeine Skin Anesthetic: Lidocaine 1% dose: 3 [id number]-[id number] 21 10 cm Ultrasound Guided: Live and [...] Single-shot BUpivacaine 0.5%, 20 mL no complications Resident/TUBING MILL OPERATOR:: Mark Nunez MD Attending Physician:: Yonatan Hilton [...] EACH performed by Stanley Koo MD at [facility] ??? PRO XFER SINGLE SUPERFICI LOW LEG TENDON Left 10/01/2015 TENDON TRANSFER, ANKLE, SUPERFICIAL performed by Stanley Koo MD at [facility] Social History Tobacco Use [...] - 02/11/2019 8:46 AM EDT Addendum created 02/11/19 0846 by Mark Nunez MD Charge Capture section [...] with Dextrose, 15 mg Events/Notes Events: None Resident/TUBING MILL OPERATOR: Rl Natarajan CRNA Second Resident/TUBING MILL OPERATOR: Fellow: Attending Physician: Andria Cordova MD ~~~~~~~~~~~~~~~~~~~~~~~~~~~~~~~~~~~~~~~~~~~~~~~~~~~~~~~~~~~~ [...] hygeine Skin Anesthetic: ??Lidocaine 1% dose: ??3 L-nmnfq-hfdth 21 10 cm Ultrasound Guided: ??Live and [...] BUpivacaine 0.5%, 20 mL no complications ?? Resident/TUBING MILL OPERATOR:: ??Mark Nunez MD Attending Physician:: ??Yonatan Hilton MD Yonatan Hilton MD [employer] [facility] documented in this encounter Visit Diagnoses [...] mL/hr documented in this encounter Care Teams Underwriting Manager Relationship Specialty Start Date End Date Sari Hay MD [facility] [address] [place] [address] PCP - General 05/21/11 documented as of this encounter
--- OUTSIDE RECORDS SUMMARY | 2024-05-09 04:27 | XMS_ITS | Encounter Summary ---
Author Organization [facility] Address [facility] [place] [address] Care Team Providers Care Patent Law Specialist Name Role Phone Sari Hay MD Primary Care Provider [phone] Reason for Visit * Reason Comments Hospital Transfer Knee Pain concern for peripros thetic knee infection * Auth/Cert Specialty Diagnoses / Procedures Referred By Emmanuel cisneros Referred To Contact Diagnoses Infection of prosthetic left knee joint Procedures EMERGENCY IPI Referral ID Status Reason Start Date Expiration Date Visits Re quested Visits Authorized [id number] 1 1 Encounter Details Date Type Department Care Team (Late st Contact Info) Description 02/10/2019 11:00 AM EDT - 02/10/2019 1:58 PM EDT Surgery [place] [address] [facility] DR OR[place]OP[place] [address] @TOTAL KNEE REVISION ARTHROPLASTY, ONE COMPONENT (WRVU [...] Sissy Eugene Patient Age: 53 y.o. Language: Indian Race: White Ethnicity: Not nor Admit date: 02/10/2019 Discharge date and time: 02/15/2019 Attending Physician: Rod Valdez MD Discharge Physician: Rod Valdez MD Follow-up Recommendations for Providers: See discharge instructions for additional details. Future Appointments Date Time Provider Department Center 03/03/2019 10:00 AM Naina King DO Le[facility] In[facility]c 5C [facility] 03/09/2019 1:[address] [facility] DX ROOM 3 Xray [facility] Rad Clin 03/09/2019 2:30 PM Rod Valdez MD [facility] Ortho 3C [facility] 03/16/2019 9:30 AM Renato Burton MD [facility] 5[facility] Inpatient Provider Contact Information: Rod Valdez MD Orthopedics: [phone] After hours and weekends, call [facility] Tablet Repair, , and have the Orthopedic resident paged. [...] 21.12) 02/11/2019 Catheter type: PICC Lot number: [id number] Procedure Details: Order received for catheter placement. A 4 Fr. single lumen SentiOne Power catheter was placed into the right [...] cell count and differential. ??Repeat markers at [facility] were elevated with CRP of 18 and [...] Discharge to: Home HOME HEALTH CARE AGENCY: ??[facility] ?? PHONE: [phone] FAX: [phone] Updated Allergies/ADRs: Allergies Allergen Reactions ??? Adhesive [...] bowel movement. You can also take an mxfx-yww-azaoscu medication, Miralax if needed to combat constipation. [...] maintain patency. 4. Please notify OPAT Program ([phone]) whenever you are unable to withdraw blood. Call your doctor ([phone]) if you develop: 1. Fever greater than 100.5 2. Severe nausea or vomiting 3. Increasing pain that is not controlled by pain medications 4. Increasing redness, swelling, or drainage from incisions 5. Change in sensation FOLLOW-UP APPOINTMENTS: 1. You will have follow-up appointments at [facility] as indicated below in Future Appointment and Orders. 2. You will need to have x-rays prior to your follow-up appointment on 03/09/19. Please come to Radiology, desk 3T, 1 hour BEFORE that appointment for those x-rays. Future Appointments Date Time Provider Department Center 03/03/2019 10:00 AM Naina King DO Leb Infec 5C [facility] 03/09/2019 1:[address] [facility] DX ROOM 3 MH Xray [...] resident on-call. General Instructions OFFICE OF CARE MANAGEMENT/It Service Manager/PROGRESS NOTE e-DH reviewed. Report received from [...] administration and teaching reinforcement VN agency is: [facility] PHONE: [phone] FAX: [phone] Home Infusion Vendor: Patient requested referral to [place], [place] or Plan: CM will continue to follow for coordination of care and to facilitate discharge planning. Future Appointments and Orders Future Appointments and Orders Future Appointments Provider Department Dept Phone 03/03/2019 10:00 AM Naina King DO Infectious Disease at [place] Arrive at: [facility] 5C [phone] 03/09/2019 1:[address] [facility] DX ROOM 3 XRay at [place] Arrive at: [facility] 3T [phone] Please go to [facility] 3T ([place] Location). 03/09/2019 2:30 PM Rod Valdez MD Orthopaedics at [place] Arrive at: [facility] 3C [phone] 03/16/2019 9:30 AM Renato Burton MD Infectious Disease at [place] Arrive at: [facility] 5C [phone] Future Orders Complete By Expires XR Knee 1-2 Views Left (Generic) [70231 Custom] 03/10/2019 09/09/2019 Process Instructions: Scheduling Instructions: Comments: Questions: Where will study be performed?: [facility] Portable exam?: Reason for exam and clinical history: s/p polyswap 02/10/19 Other pertinent information: Is the patient ?: Unknown Stat read required?: Date of injury if applicable: Requested Time: OPAT: Order / Recommendation for Post Discharge IV Antibiotic Management [IIU959 CPT(R)] As directed Process Instructions: If no progress note charted, please enter Clinical details in comments. Scheduling Instructions: Comments: Please Fax all results to: OPAT Program Infectious Disease Section [facility], [place] [address] FAX: Line care instructions per [facility] OPAT Program protocol. After hours, please contact the Infectious Disease Physician applications support analyst at . If this order was signed greater than 72 hours prior to [facility] discharge, please call to confirm the accuracy [...] Alma Matthew MD Referral for Outpatient Antibiotics [UPP2176 CPT(R)] As directed Process Instructions: Scheduling Instructions: Comments: See OPAT orders for specific abx. Flushes Per protocol. Coordinate with [facility] [employer]. PHONE: [phone] FAX: [phone] Questions: Vendor / contact information: [facility] Patient location post discharge: home Service requested: antibiotics via PICC line Start date: 02/14/2019 Responsible MD post discharge contact info: ortho/pcp Referral to Home Health - at DISCHARGE [[id number] CPT(R)] As directed Process Instructions: Scheduling Instructions: Comments: DOCUMENTATION FOR VNA SERVICES (INCLUDING THOSE PATIENTS WITH MEDICARE COVERAGE REQUIRING HOME VNA SERVICES AND/OR HOSPICE SERVICES) PATIENT'S LOCATION: [address] [address] (home) Cell: Telephone Information: Supervisor Anodizing's Name: patient and spouse In discussion with the attending physician, it is certified that this patient is under their care and that they, or a Nurse Practitioner,Clinical Nurse specialist or Physician Equipment Cleaner And Tester who is working directly with them, had [...] PICC line dressing change weekly. Supplies from: [place], [place] or Venous Access Device Maintenance Protocols [...] program if appropriate. HOME HEALTH CARE AGENCY: [facility] PHONE: [phone] FAX: [phone] Start of care: 02/14/2019 Please note that any additional orders needs or changes will need to be obtained from this patient's PCP: MD Margarita [address] / [facility] [address] All A agencies which cover the area of patient's residence have been reviewed, either verbally shaun writing, and patient/family have chosen the home health care agency noted Questions: Agency name and contact information: [facility] Patient location post discharge: home What services are requested: Registered Nurse Start date: 02/14/2019 Responsible MD post discharge contact info: ortho/pcp Primary Care Provider: Sari Hay MD [phone] Discharge References/Attachments None documented in this encounter Discharge Instructions * Discharge Instructions* Janene Hu RN - 02/14/2019 10:35 PM EDT OFFICE OF CARE MANAGEMENT/It Service Manager/PROGRESS NOTE e-DH reviewed. Report received from [...] patient to discharge tomorrow, Thursday, 02/15 and [facility] will deliver antibiotic scheduled for 3pm to patient's home. VN is scheduled to arrive at patient's home between 3 and 4 pm Thursday for administration and teaching reinforcement VN agency is: [facility] PHONE: [phone] FAX: [phone] Home Infusion Vendor: Patient requested referral to [place], [place] or Plan: CM will continue to [...] bowel movement. You can also take an dytw-blo-euqmltv medication, Miralax if needed to combat constipation. [...] maintain patency. 4. Please notify OPAT Program ([phone]) whenever you are unable to withdraw blood. Call your doctor ([phone]) if you develop: 1. Fever greater than 100.5 2. Severe nausea or vomiting 3. Increasing pain that is not controlled by pain medications 4. Increasing redness, swelling, or drainage from incisions 5. Change in sensation FOLLOW-UP APPOINTMENTS: 1. You will have follow-up appointments at [facility] as indicated below in Future Appointment and Orders. 2. You will need to have x-rays prior to your follow-up appointment on 03/09/19. Please come to Radiology, desk 3T, 1 hour BEFORE that appointment for those x-rays. Future Appointments Date Time Provider Department Center 03/03/2019 10:00 AM Naina King DO Leb Infec 5C [facility] 03/09/2019 1:[address] [facility] DX ROOM 3 Xray Leb [...] Meade MD Infectious Disease Fellow Personal Pager #[phone] 02/15/2019 * Liliana Cisneros RN - 02/15/2019 [...] Pager # Check daily e-DH reviewed. This copywriter confirmed that Adebayo can see patient tonight for initial dose of antibiotic @ 8:30 Pt ready to D/C [place] will deliver medication to home between 4 pm and 6pm. ?? Plan: CM will continue to follow for coordination of care and to facilitate discharge planning. ? Corine Hu RN CM Pager [phone] * Pia Bennett MD - 02/15/2019 5:48 [...] Infec 5C [facility] 03/09/2019 1:[address] [facility] DX ROOM 3 MH Xray Leb Rad Clin 03/09/2019 2:30 PM Rod Valdez MD Leb Ortho 3C [facility] 03/16/2019 9:30 AM Renato Burton MD Le[facility] Infec 5[facility] * Janene Hu RN - 02/14/2019 2:49 PM EDT OFFICE OF CARE MANAGEMENT/It Service Manager/PROGRESS NOTE e-DH reviewed. Report received from [...] administration and teaching reinforcement VN agency is: [facility] PHONE: [phone] FAX: [phone] Home Infusion Vendor: Patient requested referral to [place], [place] or Plan: CM will continue to follow for coordination of care and to facilitate discharge planning. Janene Hu RN CM Pager [phone] * Pia Bennett MD - 02/14/2019 5:43 [...] Time Provider Department Center 03/09/2019 1:[address] [facility] DX ROOM 3 Xray Le[facility] Rad Clin 03/09/2019 2:30 PM Rod Valdez MD [facility] * Renato Burton MD - 02/13/2019 [...] Time Provider Department Center 03/09/2019 1:[address] [facility] DX ROOM 3 Xray [facility] Rad Clin 03/09/2019 2:30 PM Rod Valdez MD [facility] Ortho [facility] * Renato Burton MD - 02/12/2019 5:22 PM EDT Infectious Disease Attending Ms. Eguene has left knee discomfort, two days after [...] Time Provider Department Center 03/09/2019 1:[address] [facility] DX ROOM 3 MH Xray [...] was instructed to contact Regional Anesthesia Team ([id number]) for any unresolved sensory or motor deficits. ?? Thank you for the opportunity to have participated in the care of this patient. NICHOLAS NUNEZ MD Regional Team pager [phone] Associated attestation - Zeb Maldonado MD - [...] Time Provider Department Center 03/09/2019 1:[address] [facility] DX ROOM 3 Xray Leb [...] is a 53 y.o. female transferred from [facility] who is s/p Left TKA by Dr Barreto at the [facility] in 09/07/2017. She reports that she did not do well with respect to stiffness and patellar pain and so Dr Barreto performed an arthroscopic debridement of fibrotic material/adhesions around the patella on 01/18/19. 5 days post op, she began noticing a fluctuant bump over the healed medial portal site. She returned to the [facility] on02/09/19 for a post-op visit, and Dr Barreto aspirated approximately 20 cc sanguinous appearing fluid from the knee, which he reports that he discarded without sending for analysis because it lookedlike blood. She left clinic and continued to ambulate as normal until 2099, until she developed the acute onset of excruciating pain. She presented to the [facility] ED afterwards. WBC of 13.4, but was reportedly afebrile, rr 18, hr 70, bp 123/77, ESR 6 (NL < 30), CRP 8 (NL < 10). Repeat aspirate of the knee with: 4500 WBC, 94% PMN, negative gram stain. ?? Transferred to [facility] for appropriate care. ?? Only complaint at [...] performed by Stanley Koo MD at [facility] ??? PRO XFER SINGLE SUPERFICI LOW LEG TENDON Left 10/01/2015 TENDON TRANSFER, ANKLE, SUPERFICIAL performed by Stanley Koo MD at [facility] Allergies Allergen Reactions ??? Adhesive Bandage Rash ??? Codeine Nausea Only No current facility-administered medications on file prior to encounter. Current Outpatient Medications on File Prior to Encounter Medication Sig Dispense Refill ??? lisinopril (PRINIVIL;ZESTRIL) 30 mg Tablet Take 30 mg by mouth daily. 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 Please page Orthopaedic consults ([phone]) with any questions or concerns. ?? Ricky [...] cell count and differential. Repeat markers at [facility] were elevated with CRP of 18 and [...] to the planned procedure. Hand Hygiene: The muck operator did perform hand hygiene prior to line insertion. Catheter type: PICC Lot number: [id number] Procedure Technique: Skin was prepped with chlorhexidine. [...] knee arthroscopy approximately 3 weeks ago at [facility] who presents to the Emergency Department with worsening left knee pain and swelling. Patient reports worsening pain over the past several weeks with associated swelling. She was seen at the ED at [facility] and underwent arthrocentesis which showed 45, [...] Spec Type BF Knee, Left Color BF Rocky Appearance BF Cloudy WBC BF Ct 27,738 [...] surgery done roughly 3 weeks ago at [facility]. Now presenting with increased swelling and pain. [...] being transferred to the emergency department from [facility], accepted by myself and will be [...] Comment: (P) Pt lives with her in [facility] in a 2 level home but she will be on the first level. OOB toward L side of high bed. 3- 4 stairs to enter w/o railing, uses crutches(therex, functional activities, home management) Prior Functional Level Comment: (P) Fully indep but limited by L knee disability. 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 BT shower, no chair Staff [...] care, occupational therapy HAILY MEJIA, PT Pager: [phone] Inpatient Physical Therapy 02/14/19 7736 Rehab Evaluation Document Type therapy note (daily note) Total Evaluation Minutes, Physical Therapy 43 General Information Treatment Number PT 3 Left Lower Extremity (Weight Bearing Status) weight-bearing as tolerated Living Environment Living Environment Comment Pt lives with her in [facility] in a 2 level home but she will be on the first level. OOB toward L side of high bed. 3-4 stairs to enter w/o railing, uses crutches (therex, functional activities, home management) Functional Level Prior Prior Functional Level Comment Fully indep but limited by L knee disability. 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 BT shower, no chair Cognitive [...] for ad leora w/ crutches Gait Assessment/Treatment Seward (Gait) conditional independence Assistive Device (Gait) axillary [...] all bed mobility activities Bed Mobility Goal, Seward Level conditional independence Bed Mobility Goal, Assistive Device leg design leader Bed Mobility Goal, Date Goal Reviewed 02/14/19 Bed Mobility Goal, Outcome Achieved goal met Gait Training Goal Gait Training Goal, Date Established 02/11/19 Gait Training Goal, Time to Achieve 2 - 3 days (by DC to home w/ home PT) Gait Training Goal, Seward Level conditional independence Gait Training Goal, Assist [...] Activity Type all transfers Transfer Train Goal, Seward Level conditional independence Transfer Training Goal, Assist Device crutches, axillary;shower chair Transfer Train Goal, Date Goal Reviewed 02/14/19 Transfer Training Goal, Outcome goal met Physical Therapy Goal PT Goal, Date Established 02/11/19 PT Goal, Time to Achieve 2 - 3 days (by DC to home w/ home PT) PT Goal, Activity Type Pt will understand and perform TKA exs correctly PT Goal, Seward Level supervision required PT Goal, Additional Goal [...] 02/13/19 1543 Health Knowledge, Opportunity to Enhance (Adult,NICU,[place],Obstetrics,Pediatric) Knowledgeable about Health Subject/Topic making progress toward outcome * Plan of Care - Ediwn Zimmerman RN - 02/13/2019 2:45 AM EDT [...] outcome Problem: Health Knowledge, Opportunity to Enhance (Adult,NICU,[place],Obstetrics,Pediatric) Intervention: Enhance Health Knowledge 02/12/191945 Coping Strategies [...] 02/12/19 142 Health Knowledge, Opportunity to Enhance (Adult,NICU,[place],Obstetrics,Pediatric) Knowledgeable about Health Subject/Topic making progress toward [...] dressing And to change. Patient encouraged by CHILD CARE CENTRE MANAGER to apply ice to see to if [...] outcome Problem: Health Knowledge, Opportunity to Enhance (Adult,NICU,[place],Obstetrics,Pediatric) Intervention: Enhance Health Knowledge 02/11/191914 Coping Strategies [...] EDT Problem: Health Knowledge, Opportunity to Enhance (Adult,NICU,,Obstetrics,Pediatric) Goal: Knowledgeable about Health Subject/Topic Patient will demonstrate the desired outcomes by discharge/transition of care. Peripherally Inserted Central Catheter (PICC) Teaching Sheet Peripherally inserted central catheters (wwnx-yc-rsdn) (PICC) are used when you need IV [...] midline catheter? PICC lines are used for care home treatments. PICC lines may be used for [...] can be set up via the nurse It Service Manager to help you. What are possible [...] Vascular Access Device Selection, Insertion, and Management, SentiOne Access Systems 07/09. A Review of the Efficacy, Safety, Use, and Administration of [employer], [employer] 2006 * Plan of Care - [...] Environment Comment: Pt lives with her in [facility] in a 2 level home but she will beon the first level. OOB toward L side of high bed. 3-4 stairs to enter w/o railing, uses crutches Prior Functional Level Comment: Fully indep but limited by L knee disability. 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 BT shower, no chair Staff [...] care, occupational therapy HAILY MEJIA, PT Pager: [phone] Inpatient Physical Therapy 02/11/19 1523 Rehab Evaluation [...] Environment Comment Pt lives with her in [facility]. [place] in a 2 level home but she will be on the first level. OOB toward L side of high bed. 3-4 stairs to enter w/o railing, uses crutches Functional Level Prior Prior Functional Level Comment Fully indep but limited by L knee disability. 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 BT shower, no chair Cognitive [...] Indicators of Pain grimace;guarding Pain Management Interventions zdlciu-slr-fijrj dosing utilized;cold applied;pain management plan reviewed with [...] Mobility Assessment/Treatment Assistive Device (Bed Mobility) leg design leader (bed flat and elevated, out to L side) Duybuj-vy-Wal Seward (Bed Mobility) contact guard assist;verbal cues required Qpm-qk-Kuxdvo Seward (Bed Mobility) not tested Safety Issues (Bed Mobility) decreased use of legs for bridging/pushing Impairments (Bed Mobility) motor control impaired;pain;ROM (range of motion) decreased;strength decreased Comment (Bed Mobility) Able to use leglifter but did provide CG of LLE comig over EOB Transfer Assessment/Treatment Seward (Sit-Stand Transfers) verbal cues required;contact guard assist;nonverbal cues required (demo/gesture) Seward (Stand-Sit Transfers) verbal cues required;contact guard assist;nonverbal cues required (demo/gesture) Rbq-Wfefb-Rtc Assistive Device (Transfers) axillary crutches Maintain Weight Bearing Status (Transfers) able to maintain weight bearing status Safety Issues (Transfers) step length decreased Comment (Transfers) Pt able to safely transfer, cues to advance LLE prior to sittng Gait Assessment/Treatment Seward (Gait) nonverbal cues required (demo/gesture);verbal cues required;supervision required Assistive Device (Gait) axillary crutches Distance in Feet (Gait) 80 Gait Pattern Analysis swing-through gait Deviations (Gait) elba decreased;limb motion velocity decreased;step length decreased;stride length decreased;vzsva-sn-ysxaza ratio decreased;weight- shifting ability decreased Maintain Weight Bearing Status (Gait) able to maintain weight bearing status Safety Issues (Gait) step length decreased;weight-shifting ability decreased Impairments (Gait) motor control impaired;pain;ROM (range of motion) decreased;strength decreased Comment (Gait) Was able to estabish a consistent swing through pattern w/ signif limp but pain limited distance ambulated [facility] Basic Mobility [facility] Mobility Completed? Yes Turning from your back [...] with a railing?* 3 - A Little [facility] Basic Mobility Raw Score 22 Basic Mobility Standardized T-Scale Score 53.28 Basic Mobility CMS 0-100% 20.91 [facility] Basic Mobility CMS Modifier CJ Coping Verbalized Emotional State acceptance Observed Emotional State accepting;apprehensive;cooperative;calm Plan of Care Review Plan Of Care Reviewed With patient;spouse (RN, information technology manager) Progress progress toward functional goals as [...] all bed mobility activities Bed Mobility Goal, Seward Level conditional independence Bed Mobility Goal, Assistive Device leg design leader Gait Training Goal Gait Training Goal, Date Established 02/11/19 Gait Training Goal, Time to Achieve 2 - 3 days (by DC to home w/ home PT) Gait Training Goal, Seward Level conditional independence Gait Training Goal, Assist [...] Activity Type all transfers Transfer Train Goal, Seward Level conditional independence Transfer Training Goal, Assist Device crutches, axillary;shower chair Physical Therapy Goal PT Goal, Date Established 02/11/19 PT Goal, Time to Achieve 2 - 3 days (by DC to home w/ home PT) PT Goal, Activity Type Pt will understand and perform TKA exs correctly PT Goal, Seward Level supervision required PT Goal, Additional Goal [...] Pertinent/Service Specific Information: Health/Prescription Coverage: Primary Insurance: [employer] [facility] [employer] Secondary Insurance: N/A Prescription Coverage: yes Preferred Pharmacy: per demographic Other: Primary Care Provider: Sari Hay MD [phone] Patient/Caregiver Goals of Treatment: Return home to family care with IV abx at home or go daily toinfusion suite if abx to be given there. OPAT not complete Potential Needs for Transition of Care: Rehab/SNF: Home Health: The patient/food service representative has been provided a list of Home Health Agencies/DME vendors which servetheir preferred geographic area. A letter describing our affiliations was reviewed with them and they were educated about their right to choose where referrals are placed. [facility] [employer]. PHONE: [phone] FAX: [phone] Patient requests referral to [place], [place] or Expected date of discharge: 02/14/19 Referral routed to the Radiologic Tech for matching with agency/vendor and to provide [...] of care planning. Caprice Hale RN Pager: [phone] * Plan of Care - Mita Suarez [...] of left TKA on 09/07/17 transferred from [facility] for concern for PJI. Following her initial [...] negative gram stain. She was transferred to [facility] and repeat aspirate with 27,738 wbc 94%pmns [...] performed by Stanley Koo MD at [facility] ??? PRO XFER SINGLE SUPERFICI LOW LEG TENDON Left 10/01/2015 TENDON TRANSFER, ANKLE, SUPERFICIAL performed by Stanley Koo MD at [facility] Family History: Family History Problem Relation Age of Onset ??? Hypertension Father Social History and Habits: , lives with . 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 Non-smoker, no alcohol use Physical Exam: Last [...] Naina King DO Infectious Disease Fellow Pager [phone] Associated attestation - Alexy Lerner MD - [...] be switched to IV vancomycin. Should this air route traffic controller to be a Staphylococcus aureus PJI managed by single-stage revision (polyswap),then Ms. Eugene will need treatment with at least 2 weeks of parenteral therapy prior to transitioning to an oral rifampin-based regimen (e.g. Ciprofloxacin/rifampin). This will need to continue out to 6 months. Alexy Lerner MD * Op Note - Rod Valdez MD - 02/10/2019 1:26 PM EDT [facility] Operative Note Patient Name: Sissy Eugene : [id number] MR#: [id number] Case Date: 02/10/2019 Surgeon: Surgeon(s) and Role: [...] cell count and differential. Repeat markers at [facility] were elevated with CRP of 18 and [...] Operative Note Patient Name: Sissy Eugene : [id number] MR#: [id number] Case Date: 02/10/2019 Surgeon: Surgeon(s) and Role: [...] AM EDT Pt arrives by ambulance from [facility]. Pt has been having L knee pain [...] 02/13/2019 3:23 AM EDT BASIC METABOLIC PANEL Routine 02/13/2019 3:23 AM EDT HEMOGRAM Routine 02/12/2019 4:08 AM EDT DIFFERENTIAL, AUTOMATED Routine 02/12/2019 4:08 AM EDT CBC (WITH DIFF) Routine 02/12/2019 4:08 AM EDT BASIC METABOLIC PANEL Routine 02/12/2019 4:08 AM EDT XR PICC PLACEMENT OVER 5 YEARS (IV TEAM) Routine 02/11/2019 4:[address] PICC LINE: CONTACT VASCULAR ACCESS Routine 02/11/2019 4:10 PM EDT HEMOGRAM Routine 02/11/2019 3:07 AM EDT DIFFERENTIAL, AUTOMATED Routine 02/11/2019 3:07 AM EDT CBC (WITH DIFF) Routine 02/11/2019 3:07 AM EDT HEMOGLOBIN A1C Routine 02/11/2019 3:07 AM EDT BASIC METABOLIC PANEL Routine 02/11/2019 3:07 AM EDT SONICATED TISSUE/IMPLANT [...] 02/10/2019 8:32 AM EDT TYPE AND SCREEN (MC/CGP/SHAILESH) STAT 02/10/2019 8:32 AM EDT TOTAL KNEE [...] 02/10/2019 5:40 AM EDT BASIC METABOLIC PANEL Routine 02/10/2019 5:40 AM EDT IMPLANTABLE DEVICES [...] * Differential, Automated (02/13/2019 3:23 AM EDT) Neutrophil % 50.9 % [facility] Neutrophil Absolute 3.41 1.70 - 6.10 x10(3)/[facility] Lymph % 31.1 % [facility] Lymphocytes Abs 2.1 0.9 - 3.2 x10(3)/[facility] Monocyte % 10.8 % [facility] Monocyte Abs 0.7 0.3 - 0.9 x10(3)/[facility] Eos % 6.0 % [facility] Eosinophils Abs 0.4 0.0 - 0.4 x10(3)/[facility] Basophil % 0.9 % [facility] Baso Absolute 0.1 0.0 - 0.1 x10(3)/[facility] Immature Gran % 0.30 % [facility] Comment: Immature granulocytes(IG's)percentage and absolute count will include metamyelocytes, myelocytes, and promyelocytes. Blood smears from CBCs yielding IG's will be scanned manually for concordance. If this scan disagrees with the automated IG or if promyelocytes are noted, a manual differential will be performed. Immature Gran Absolute 0.02 0.00 - 0.04 x10(3)/[facility] Blood specimen (specimen) 02/13/2019 3:23 AM EDT 02/13/2019 3:29 AM EDT Narrative Resulting Agency Comment Spec In Lab Pia Bennett MD HEMATOLOGY ORDERABL ES [facility] [place] [address] * (ABNORMAL) Hemogram (02/13/2019 3:23 AM EDT) White Blood Cell 6.7 4.0 - 9.5 x10(3)/mc L [facility] Red Blood Cell 3.82(L) 4.00 - 5.21 x10(6)/mc L [facility] Hemoglobin 10.9(L) 11.7 - 15.5 gm/dL [facility] Hematocrit 33.8(L) 35.7 - 45.8 % [facility] Mean Cell Volume 88.5 82.6 - 94.4 fL [facility] Mean Cell Hemoglobin 28.5 27.1 - 32.0 pg [facility] Mean Cell Hemoglobin Concentration 32.2 31.7 - 35.0 gm/dL [facility] Platelet 241 145 - 357 x10(3)/mc L [facility] RDW Standard Deviation 44.1 37.0 - 46.0 fL [facility] RDW coefficient of variation 13.5 11.5 - 14.1 % [facility] Mean Platelet Volume 9.5 7.6 - 12.9 fL [facility] NRBC% auto 0.0 % [facility] NRBC Absolute 0.000 0.000 - 0.000 x10(3)/mc L [facility] Blood specimen (specimen) 02/13/2019 3:23 AM EDT 02/13/2019 3:29 AM EDT Narrative Resulting Agency Comment Spec In Lab Pia Bennett MD HEMATOLOGY ORDERABL ES [facility] [place] [address] * (ABNORMAL) Basic Metabolic Panel (non-fasting) (02/13/2019 3:23 AM EDT) Glucose 109 65 - 199 mg/dL [facility] Comment:Diabetes: >=200 mg/d L plus symptoms Blood Urea Nitrogen 6(L) 8 - 18 mg/dL [facility] Creatinine 0.77 0.70 - 1.20 mg/dL [facility] Sodium 143 135 - 145 mmol/L [facility] Potassium 3.5 3.5 - 5.0 mmol/L [facility] Comment: Please note: ??Patients with WBC >100,000 may have falsely elevated Potassium levels. ??For accurate Potassium quantification in these patients send serum separator tube (gold top) for subsequent determinations. ??Contact the Clinical Chemistry Laboratory if there are any questions. Chloride 106 98 - 107 mmol/L [facility] Carbon Dioxide 28 22 - 31 mmol/L [facility] Anion Gap 9 5 - 15 mmol/L [facility] Calcium 8.7 8.5 - 10.5 mg/dL [facility] Est Glomerular Filtration Rate 87 >=60 mL/min/1. 73 m?? [facility] Comment: The eGFR was calculated using the CKD-EPI equation. As with all creatinine based estimates of kidney function, eGFR values calculated with the CKD-EPI equation are not accurate in patients with acute kidney failure, extremes of body mass or the acutely ill. [email or web address] eGFR 101 >=60 mL/min/1. 73 m?? [facility] Comment: The eGFR was calculated using the CKD-EPI equation. As with all creatinine based estimates of kidney function, eGFR values calculated with the CKD-EPI equation are not accurate in patients with acute kidney failure, extremes of body mass or the acutely ill. [email or web address] Blood specimen (specimen) 02/13/2019 3:23 AM EDT 02/13/2019 3:28 AM EDT Narrative Resulting Agency Comment Spec In Lab Karen Nixon MD CHEMISTRY ORDERABLE S [facility] [place] [address] * (ABNORMAL) Differential, Automated (02/12/2019 4:08 AM EDT) Neutrophil % 59.3 % [facility] Neutrophil Absolute 5.76 1.70 - 6.10 x10(3)/mc L [facility] Lymph % 24.5 % [facility] Lymphocytes Abs 2.4 0.9 - 3.2 x10(3)/mc L [facility] Monocyte % 11.7 % [facility] Monocyte Abs 1.1(H) 0.3 - 0.9 x10(3)/mc L [facility] Eos % 3.5 % [facility] Eosinophils Abs 0.3 0.0 - 0.4 x10(3)/mc L [facility] Basophil % 0.6 % [facility] Baso Absolute 0.1 0.0 - 0.1 x10(3)/mc L [facility] Immature Gran % 0.40 % [facility] Comment: Immature granulocytes(IG's)percentage and absolute count will include metamyelocytes, myelocytes, and promyelocytes. Blood smears from CBCs yielding IG's will be scanned manually for concordance. If this scan disagrees with the automated IG or if promyelocytes are noted, a manual differential will be performed. Immature Gran Absolute 0.04 0.00 - 0.04 x10(3)/ L [facility] Blood specimen (specimen) 02/12/2019 4:08 AM EDT 02/12/2019 4:15 AM EDT Narrative Resulting Agency Comment Spec In Lab Pia Bennett MD HEMATOLOGY ORDERABL ES [facility] [place] [address] * (ABNORMAL) Hemogram (02/12/2019 4:08 AM EDT) White Blood Cell 9.7(H) 4.0 - 9.5 x10(3)/[facility] Red Blood Cell 3.99(L) 4.00 - 5.21 x10(6)/[facility] Hemoglobin 11.7 11.7 - 15.5 gm/dL [facility] Hematocrit 36.0 35.7 - 45.8 % [facility] Mean Cell Volume 90.2 82.6 - 94.4 fL [facility] Mean Cell Hemoglobin 29.3 27.1 - 32.0 pg [facility] Mean Cell Hemoglobin Concentration 32.5 31.7 - 35.0 gm/dL [facility] Platelet 233 145 - 357 x10(3)/ L [facility] RDW Standard Deviation 45.0 37.0 - 46.0 [facility] RDW coefficient of variation 13.5 11.5 - 14.1 % [facility] Mean Platelet Volume 9.6 7.6 - 12.9 [facility] NRBC% auto 0.0 % [facility] NRBC Absolute 0.000 0.000 - 0.000 x10(3)/ L [facility] Blood specimen (specimen) 02/12/2019 4:08 AM EDT 02/12/2019 4:15 AM EDT Narrative Resulting Agency Comment Spec In Lab Pia Bennett MD HEMATOLOGY ORDERABL ES [facility] [place] [address] * Basic Metabolic Panel (non-fasting) (02/12/2019 4:08 AM EDT) Glucose 102 65 - 199 mg/dL [facility] Comment:Diabetes: >=200 mg/d L plus symptoms Blood Urea Nitrogen 9 8 - 18 mg/dL [facility] Creatinine 0.84 0.70 - 1.20 mg/dL [facility] Sodium 141 135 - 145 mmol/L [facility] Potassium 3.8 3.5 - 5.0 mmol/L [facility] Comment: Please note: ??Patients with WBC >100,000 may have falsely elevated Potassium levels. ??For accurate Potassium quantification in these patients send serum separator tube (gold top) for subsequent determinations. ??Contact the Clinical Chemistry Laboratory if there are any questions. Chloride 105 98 - 107 mmol/L [facility] Carbon Dioxide 26 22 - 31 mmol/L [facility] Anion Gap 10 5 - 15 mmol/L [facility] Calcium 8.9 8.5 - 10.5 mg/dL [facility] Est Glomerular Filtration Rate 78 >=60 mL/min/1. 73 m?? [facility] Comment: The eGFR was calculated using the CKD-EPI equation. As with all creatinine based estimates of kidney function, eGFR values calculated with the CKD-EPI equation are not accurate in patients with acute kidney failure, extremes of body mass or the acutely ill. [email or web address] eGFR 91 >=60 mL/min/1. 73 m?? [facility] Comment: The eGFR was calculated using the CKD-EPI equation. As with all creatinine based estimates of kidney function, eGFR values calculated with the CKD-EPI equation are not accurate in patients with acute kidney failure, extremes of body mass or the acutely ill. [email or web address] Blood specimen (specimen) 02/12/2019 4:08 AM EDT 02/12/2019 4:15 AM EDT Narrative Resulting Agency Comment Spec In Lab Karen Nixon MD CHEMISTRY ORDERABLE S [facility] [place] [address] * XR PICC Placement Over 5 Years [...] None IMPRESSION FINDINGS/IMPRESSION: Intraprocedural frontal radiograph of eugeneastinum demonstrates a right-sided PICC line with its tip projecting over thelower superior vena cava. I have personally reviewed the image(s) and the residents interpretationand agree with the findings, Cristina Gibson at 02/11/2019 4:51 PM Thank you for letting us participate in the care of this patient. Forquestions regarding this report, please contact the number below. Luz Gillette APRN IMG FLUORO ORDERABL ES * Place PICC Line: Contact Vascular Access Page [phone] Extremity to exclude: No restrictions; Is PICC [...] to the planned procedure. Hand Hygiene: The muck operator did perform hand hygiene prior to line insertion. Catheter type: PICC Lot number: [id number] Procedure Technique: Skin was prepped with chlorhexidine. [...] Hemoglobin A1c (02/11/2019 3:07 AM EDT) Hemoglobin A1c 5.4 4.3 - 5.6 % [facility] Comment: Reference Range: 4.3 - [...] Mellitus, Diabetes Care 2013; 36: Suppl. 1, M77-60 Estimated Average Glucose 109 mg/dL [facility] Comment: eAG equivalents for HbA1c [...] into estimated average glucose values. ??Diabetes Care 2008:31(8):6340-6694. Blood specimen (specimen) Venous Draw / Unknown 02/11/2019 3:07 AM EDT 02/11/2019 10:45 AM EDT Narrative Resulting Agency Comment Spec In Lab Maria Luisa ANDERSEN CHEMISTRY ORDERAB LES [facility] [place] [address] * (ABNORMAL) Differential, Automated (02/11/2019 3:07 AM EDT) Neutrophil % 70.2 % [facility] Neutrophil Absolute 6.36(H) 1.70 - 6.10 x10(3)/mc L [facility] Lymph % 15.3 % [facility] Lymphocytes Abs 1.4 0.9 - 3.2 x10(3)/mc L [facility] Monocyte % 12.9 % [facility] Monocyte Abs 1.2(H) 0.3 - 0.9 x10(3)/mc L [facility] Eos % 1.0 % [facility] Eosinophils Abs 0.1 0.0 - 0.4 x10(3)/mc L [facility] Basophil % 0.3 % [facility] Baso Absolute 0.0 0.0 - 0.1 x10(3)/ L [facility] Immature Gran % 0.30 % [facility] Comment: Immature granulocytes(IG's)percentage and absolute count will include metamyelocytes, myelocytes, and promyelocytes. Blood smears from CBCs yielding IG's will be scanned manually for concordance. If this scan disagrees with the automated IG or if promyelocytes are noted, a manual differential will be performed. Immature Gran Absolute 0.03 0.00 - 0.04 x10(3)/ L [facility] Blood specimen (specimen) 02/11/2019 3:07 AM EDT 02/11/2019 3:26 AM EDT Narrative Resulting Agency Comment Spec In Lab Pia Bennett MD HEMATOLOGY ORDERABL ES Performing Organization Address City/State/[facility] Co de Phone Number [facility] [place] [address] * Hemogram (02/11/2019 3:07 AM EDT) White Blood Cell 9.1 4.0 - 9.5 x10(3)/[facility] Red Blood Cell 4.23 4.00 - 5.21 x10(6)/[facility] Hemoglobin 12.2 11.7 - 15.5 gm/dL [facility] Hematocrit 38.1 35.7 - 45.8 % [facility] Mean Cell Volume 90.1 82.6 - 94.4 fL [facility] Mean Cell Hemoglobin 28.8 27.1 - 32.0 pg [facility] Mean Cell Hemoglobin Concentration 32.0 31.7 - 35.0 gm/dL [facility] Platelet 229 145 - 357 x10(3)/[facility] RDW Standard Deviation 44.2 37.0 - 46.0 fL [facility] RDW coefficient of variation 13.5 11.5 - 14.1 % [facility] Mean Platelet Volume 9.8 7.6 - 12.9 fL [facility] NRBC% auto 0.0 % [facility] NRBC Absolute 0.000 0.000 - 0.000 x10(3)/mcL [facility] Blood specimen (specimen) 02/11/2019 3:07 AM EDT 02/11/2019 3:26 AM EDT Narrative Resulting Agency Comment Spec In Lab Pia Bennett MD HEMATOLOGY ORDERABL ES [facility] [place] [address] * Basic Metabolic Panel (non-fasting) (02/11/2019 3:07 AM EDT) Glucose 121 65 - 199 mg/dL [facility] Comment:Diabetes: >=200 mg/d L plus symptoms Blood Urea Nitrogen 13 8 - 18 mg/dL [facility] Creatinine 0.80 0.70 - 1.20 mg/dL [facility] Sodium 140 135 - 145 mmol/L [facility] Potassium 3.9 3.5 - 5.0 mmol/L [facility] Comment: Please note: ??Patients with WBC >100,000 may have falsely elevated Potassium levels. ??For accurate Potassium quantification in these patients send serum separator tube (gold top) for subsequent determinations. ??Contact the Clinical Chemistry Laboratory if there are any questions. Chloride 104 98 - 107 mmol/L [facility] Carbon Dioxide 25 22 - 31 mmol/L [facility] Anion Gap 11 5 - 15 mmol/L [facility] Calcium 8.8 8.5 - 10.5 mg/dL [facility] Est Glomerular Filtration Rate 83 >=60 mL/min/1. 73 m?? [facility] Comment: The eGFR was calculated using the CKD-EPI equation. As with all creatinine based estimates of kidney function, eGFR values calculated with the CKD-EPI equation are not accurate in patients with acute kidney failure, extremes of body mass or the acutely ill. [email or web address] eGFR 96 >=60 mL/min/1. 73 m?? [facility] Comment: The eGFR was calculated using the CKD-EPI equation. As with all creatinine based estimates of kidney function, eGFR values calculated with the CKD-EPI equation are not accurate in patients with acute kidney failure, extremes of body mass or the acutely ill. [email or web address] Blood specimen (specimen) 02/11/2019 3:07 AM EDT 02/11/2019 3:26 AM EDT Narrative Resulting Agency Comment Spec In Lab Karen Nixon MD CHEMISTRY ORDERABLE S Performing Organization Address [facility] Co de Phone Number [facility] [place] [address] * (ABNORMAL) Sonicated Tissue/Implant Culture Prosthetic Joint (02/10/2019 2:32 PM EDT) Sonicated Tissue/Implan t Culture Greater than 100 cfu/10 ml sonicate Staphylococcus lugdunensis Susceptibilities previously reported (A) [facility] Organism Staphylococcus lugdunensis(A) [facility] Prosthetic joint sample (specimen) 02/10/2019 2:32 PM EDT 02/10/2019 2:42 PM EDT Comment:LEFT PROSTHETIC KNEE JOINT Narrative Resulting Agency Comment Spec In Lab Karen iNxon MD MICROBIOLOGY - GENE RAL ORDERABLES Performing Organization Address [facility]/ZIP Co de Phone Number [facility] [place] [address] * Anaerobic Culture (02/10/2019 12:53 PM EDT) Anaerobic Culture No anaerobic organisms isolated [facility] Joint fluid specimen (specimen) STRUCTURE OF LEFT KNEE REGION / Unknown 02/10/2019 12:53 PM EDT 02/10/2019 2:04 PM EDT Comment:LEFT POSTERIOR SYNOV IUM Narrative Resulting Agency Comment Spec In Lab Rod Valdez MD MICROBIOLOGY - GENER AL ORDERABLES Performing Organization Address City/[facility]/ZIP Co de Phone Number [facility] [place] [address] * (ABNORMAL) Joint Culture (02/10/2019 12:53 PM EDT) Joint Culture Few Staphylococcus lugdunensis Susceptibilities previously reported (A) [facility] Gram Stain Cytocentrifuge Gram Stain performed Neutrophils seen No microorganisms seen. (A) [facility] Organism Staphylococcus lugdunensis(A) [facility] Joint fluid specimen (specimen) STRUCTURE OF LEFT KNEE REGION / Unknown 02/10/2019 12:53 PM EDT 02/10/2019 2:04 PM EDT Comment:LEFT POSTERIOR SYNOV IUM Narrative Resulting Agency Comment Spec In Lab Rod Valdez MD MICROBIOLOGY - GENER AL ORDERABLES Performing Organization Address [facility]/ZIP Co de Phone Number [facility] [place] [address] * Anaerobic Culture (02/10/2019 12:53 PM EDT) Anaerobic Culture No anaerobic organisms isolated [facility] Joint fluid specimen (specimen) STRUCTURE OF LEFT KNEE REGION / Unknown 02/10/2019 12:53 PM EDT 02/10/2019 2:05 PM EDT Comment:LEFT TIBIAL TRAY Narrative Resulting Agency Comment Spec In Lab Rod Valdez MD MICROBIOLOGY - GENER AL ORDERABLES Performing Organization Address City/[facility]/ZIP Co de Phone Number [facility] [place] [address] * (ABNORMAL) Joint Culture (02/10/2019 12:53 PM EDT) Joint Culture Moderate Staphylococcus lugdunensis(A) [facility] Gram Stain Cytocentrifuge Gram Stain performed Neutrophils seen Moderate Gram Positive Cocci in clusters seen Results called to and read back by Kenneth De Leon ??02/10/19 15:08:50 (A) [facility] Organism Staphylococcus lugdunensis(A) [facility] Organism Gram Positive Cocci in clusters(A) [facility] Joint fluid specimen (specimen) STRUCTURE OF LEFT KNEE REGION / Unknown 02/10/2019 12:53 PM EDT 02/10/2019 2:05 PM EDT Comment:LEFT TIBIAL TRAY Narrative Resulting Agency Comment Spec In Lab Organism Antibiotic Method Susceptibility Staphylococcus lugdunensis Clindamycin RICHEY-CHE SUSCEPTIBILITY METHOD Sensitive Staphylococcus lugdunensis Erythromycin RICHEY-CHE SUSCEPTIBILITY METHOD Sensitive Staphylococcus lugdunensis Gentamicin RICHEY-CHE SUSCEPTIBILITY METHOD Sensitive Comment:Gentamicin i s not appropriate for [place]-therapy. Staphylococcus lugdunensis Oxacillin RICHEY-CHE SUSCEPTIBILITY METHOD Sensitive Staphylococcus lugdunensis Tetracycline RICHEY-CHE SUSCEPTIBILITY METHOD Sensitive Staphylococcus lugdunensis Trimethoprim/Sulfa RICHEY-CHE SUSCEPTIBILITY METHOD Resistant Staphylococcus lugdunensis Linezolid RICHEY-CHE SUSCEPTIBILITY METHOD Sensitive Staphylococcus lugdunensis Levofloxacin RICHEY-CHE SUSCEPTIBILITY METHOD Sensitive Staphylococcus lugdunensis Ceftriaxone MINIMUM INHIBITORY CONCENTRATION 1 Rod Valdez MD MICROBIOLOGY - GENER AL ORDERABLES Performing Organization Address City/[facility]/[place] [address] * Anaerobic Culture (02/10/2019 12:53 PM EDT) Anaerobic Culture No anaerobic organisms isolated [facility] Joint fluid specimen (specimen) STRUCTURE OF LEFT KNEE REGION / Unknown 02/10/2019 12:53 PM EDT 02/10/2019 2:05 PM EDT Comment:LEFT KNEE FLUID Narrative Resulting Agency Comment Spec In Lab Rod Valdez MD MICROBIOLOGY - GENER AL ORDERABLES Performing Organization Address City/[facility]/ZIP Co de Phone Number [facility] [place] [address] * (ABNORMAL) Joint Culture (02/10/2019 12:53 PM EDT) Joint Culture Rare Staphylococcus lugdunensis Susceptibilities previously reported (A) [facility] Gram Stain Cytocentrifuge Gram Stain performed Neutrophils seen No microorganisms seen. (A) [facility] Organism Staphylococcus lugdunensis(A) [facility] Joint fluid specimen (specimen) STRUCTURE OF LEFT KNEE REGION / Unknown 02/10/2019 12:53 PM EDT 02/10/2019 2:05 PM EDT Comment:LEFT KNEE FLUID Narrative Resulting Agency Comment Spec In Lab Rod Valdez MD MICROBIOLOGY - GENER AL ORDERABLES [facility] [place] [address] * Cell Count Body Fluid Knee Joint Fluid (02/10/2019 12:13 PM EDT) Body Fluid Source Knee Fl [facility] Color, Fld Red [facility] Appearance, Fld Cloudy [facility] WBC Count, Fld 38,759 /[facility] Comment: Guideline listed below apply to all body fluids. Differentials on BAL specimens are performed by the Cytology lab section. When Body Fluid WBC count is greater than Zero, a smear is made and scanned. All scan information is correlated with numeric results prior to being released to patients chart. Polymorphonuclear cells BF % 95 % [facility] Comment: Polymorphonuclear cell percent and absolute values may contain Neutrophils, Eosinophils, and Basophils. Body fluid smear will be scanned manually for concordance. Mononuclear cells BF % 5 % [facility] Comment: Mononuclear cell percent and absolute values may contain Lymphocytes and Monocytes. Body fluid smear will be scanned manually for concordance. Polymorphonuclear cells BF ABS 36,756 /[facility] Comment: Polymorphonuclear cell percent and absolute values may contain Neutrophils, Eosinophils, and Basophils. Body fluid smear will be scanned manually for concordance. Mononuclear cells BF ABS 2,003 /[facility] Comment: Mononuclear cell percent and absolute values may contain Lymphocytes and Monocytes. Body fluid smear will be scanned manually for concordance. Knee joint synovial fluid (specimen) 02/10/2019 12:13 PM EDT 02/10/2019 12:19 PM EDT Narrative Resulting Agency Comment Spec In Lab Karen Nixon MD BODY FLUIDS AND STO OLS ORDERABLES Performing Organization Address City/[facility]/ZIP Co de Phone Number [facility] [place] [address] * Blood culture (02/10/2019 9:20 AM EDT) Blood Culture No growth at 5 days. [facility] Blood specimen (specimen) 02/10/2019 9:20 AM EDT 02/10/2019 10:08 AM EDT Narrative Resulting Agency Comment Spec In Lab Reza Gutierrez MD MICROBIOLOGY - BLOOD ORDERABLES Performing Organization Address [facility]/ZIP Co de Phone Number [facility] [place] [address] * ABORH Recheck Status (02/10/2019 8:32 AM EDT) ABORH Recheck Order Order Placed [facility] ABORH Type Recheck Complete [facility] Blood specimen (specimen) 02/10/2019 8:32 AM EDT 02/10/2019 9:02 AM EDT Narrative Resulting Agency Comment Spec In Lab Alison Bueno MD BLOOD BANK LAB ORDER DEVAN Performing Organization Address City/[facility]/ZIP Co de Phone Number [facility] [place] [address] * Antibody screen (02/10/2019 8:32 AM EDT) Ab Screen Interp Negative [facility] Expires at [id number] on: 02/13/2019 [facility] Blood specimen (specimen) 02/10/2019 8:32 AM EDT 02/10/2019 9:02 AM EDT Narrative Resulting Agency Comment Spec In Lab Alison Bueno MD BLOOD BANK LAB ORDER DEVAN Performing Organization Address [facility] Co de Phone Number [facility] [place] [address] * ABO/Rh Typing (02/10/2019 8:32 AM EDT) ABORH Type A Pos [facility] Blood specimen (specimen) 02/10/2019 8:32 AM EDT 02/10/2019 9:02 AM EDT Narrative Resulting Agency Comment Spec In Lab Alison Bueno MD BLOOD BANK LAB ORDER DEVAN Performing Organization Address [facility] Co de Phone Number [facility] [place] [address] * Blood culture (02/10/2019 8:32 AM EDT) Blood Culture No growth at 5 days. [facility] Blood specimen (specimen) ANTECUBITAL REGION STRUCTURE / Unknown 02/10/2019 8:32 AM EDT 02/10/2019 9:06 AM EDT Narrative Resulting Agency Comment Spec In Lab Reza Gutierrez MD MICROBIOLOGY - BLOOD ORDERABLES Performing Organization Address [facility] Co de Phone Number [facility] [place] [address] * Anaerobic Culture (02/10/2019 5:58 AM EDT) Anaerobic Culture No anaerobic organisms isolated [facility] Joint fluid specimen (specimen) STRUCTURE OF LEFT KNEE REGION / Unknown 02/10/2019 5:58 AM EDT 02/10/2019 7:38 AM EDT Narrative Resulting Agency Comment Spec In Lab Ricky Lozoya MD MICROBIOLOGY - GENER AL ORDERABLES Performing Organization Address City/[facility] Co de Phone Number [facility] [place] [address] * (ABNORMAL) Joint Culture (02/10/2019 5:58 AM EDT) Joint Culture Rare Staphylococcus lugdunensis Susceptibilities previously reported (A) [facility] Gram Stain Cytocentrifuge Gram Stain performed Many Neutrophils seen No microorganisms seen. (A) [facility] Organism Staphylococcus lugdunensis(A) [facility] Joint fluid specimen (specimen) STRUCTURE OF LEFT KNEE REGION / Unknown 02/10/2019 5:58 AM EDT 02/10/2019 6:12 AM EDT Narrative Resulting Agency Comment Spec In Lab Ricky Lozoya MD MICROBIOLOGY - GENER AL ORDERABLES Performing Organization Address [facility]/ZIP Co de Phone Number [facility] [place] [address] * Crystal Exam Body Fluid Knee, Left (02/10/2019 5:58 AM EDT) Crystal BF Type Knee fluid Lt [facility] Crystal Exam, Fld None Seen [facility] Specimen from lower limb (specimen) 02/10/2019 5:58 AM EDT 02/10/2019 6:09 AM EDT Narrative Resulting Agency Comment Spec In Lab Reza Gutierrez MD BODY FLUIDS AND STOO LS ORDERABLES [facility] [place] [address] * Cell Count Body Fluid Knee, Left (02/10/2019 5:58 AM EDT) Body Fluid Source Knee, Left [facility] Color, Fld Rocky [facility] Appearance, Fld Cloudy [facility] WBC Count, Fld 27,738 /mcl [facility] Comment: Guideline listed below apply to all body fluids. Differentials on BAL specimens are performed by the Cytology lab section. When Body Fluid WBC count is greater than Zero, a smear is made and scanned. All scan information is correlated with numeric results prior to being released to patients chart. Polymorphonuclear cells BF % 94 % [facility] Comment: Polymorphonuclear cell percent and absolute values may contain Neutrophils, Eosinophils, and Basophils. Body fluid smear will be scanned manually for concordance. Mononuclear cells BF % 6 % [facility] Comment: Mononuclear cell percent and absolute values may contain Lymphocytes and Monocytes. Body fluid smear will be scanned manually for concordance. Polymorphonuclear cells BF ABS 25,939 /[facility] Comment: Polymorphonuclear cell percent and absolute values may contain Neutrophils, Eosinophils, and Basophils. Body fluid smear will be scanned manually for concordance. Mononuclear cells BF ABS 1,799 /[facility] Comment: Mononuclear cell percent and absolute values may contain Lymphocytes and Monocytes. Body fluid smear will be scanned manually for concordance. Specimen from lower limb (specimen) 02/10/2019 5:58 AM EDT 02/10/2019 6:09 AM EDT Narrative Resulting Agency Comment Spec In Lab Reza Gutierrez MD BODY FLUIDS AND STOO LS ORDERABLES [facility] [place] [address] * Gold Tube HOLD (02/10/2019 5:40 AM EDT) Gold Hold Sample in lab. [facility] Blood specimen (specimen) Venous Draw / Unknown 02/10/2019 5:40 AM EDT 02/10/2019 5:45 AM EDT Ricky Lozoya MD CHEMISTRY ORDERABLES [facility] [place] [address] * (ABNORMAL) Differential, Automated (02/10/2019 5:40 AM EDT) Neutrophil % 81.1 % [facility] Neutrophil Absolute 10.29(H) 1.70 - 6.10 x10(3)/[facility] Lymph % 9.5 % [facility] Lymphocytes Abs 1.2 0.9 - 3.2 x10(3)/[facility] Monocyte % 8.7 % [facility] Monocyte Abs 1.1(H) 0.3 - 0.9 x10(3)/[facility] Eos % 0.0 % [facility] Eosinophils Abs 0.0 0.0 - 0.4 x10(3)/[facility] Basophil % 0.4 % [facility] Baso Absolute 0.0 0.0 - 0.1 x10(3)/[facility] Immature Gran % 0.30 % [facility] Comment: Immature granulocytes(IG's)percentage and absolute count will include metamyelocytes, myelocytes, and promyelocytes. Blood smears from CBCs yielding IG's will be scanned manually for concordance. If this scan disagrees with the automated IG or if promyelocytes are noted, a manual differential will be performed. Immature Gran Absolute 0.04 0.00 - 0.04 x10(3)/[facility] Blood specimen (specimen) 02/10/2019 5:40 AM EDT 02/10/2019 5:45 AM EDT Narrative Resulting Agency Comment Spec In Lab Ricky Lozoya MD HEMATOLOGY ORDERABLE S [facility] [place] [address] * (ABNORMAL) Hemogram (02/10/2019 5:40 AM EDT) White Blood Cell 12.7(H) 4.0 - 9.5 x10(3)/[facility] Red Blood Cell 4.62 4.00 - 5.21 x10(6)/[facility] Hemoglobin 13.3 11.7 - 15.5 gm/dL [facility] Hematocrit 40.0 35.7 - 45.8 % [facility] Mean Cell Volume 86.6 82.6 - 94.4 fL [facility] Mean Cell Hemoglobin 28.8 27.1 - 32.0 pg [facility] Mean Cell Hemoglobin Concentration 33.3 31.7 - 35.0 gm/dL [facility] Platelet 268 145 - 357 x10(3)/mc L [facility] RDW Standard Deviation 41.4 37.0 - 46.0 fL [facility] RDW coefficient of variation 13.2 11.5 - 14.1 % [facility] Mean Platelet Volume 9.6 7.6 - 12.9 fL [facility] NRBC% auto 0.0 % [facility] NRBC Absolute 0.000 0.000 - 0.000 x10(3)/mc L [facility] Blood specimen (specimen) 02/10/2019 5:40 AM EDT 02/10/2019 5:45 AM EDT Narrative Resulting Agency Comment Spec In Lab Ricky Lozoya MD HEMATOLOGY ORDERABLE S Performing Organization Address [facility] Co de Phone Number [facility] [place] [address] * (ABNORMAL) APTT (02/10/2019 5:40 AM EDT) Partial Thromboplastin Time 24(L) 25 - 37 sec [facility] Comment: The PTT is NOT appropriate for heparin monitoring. Use the Anti-Xa level for heparin monitoring (HEP UFH) or LMWH monitoring (HEP LMW). A PTT less than 37 seconds generally indicates adequate hemostasis. Blood specimen (specimen) 02/10/2019 5:40 AM EDT 02/10/2019 5:45 AM EDT Narrative Resulting Agency Comment Spec In Lab Reza Gutierrez MD HEMATOLOGY ORDERABLE S [facility] [place] [address] * (ABNORMAL) Prothrombin Time (02/10/2019 5:40 AM EDT) [facility] Prothrombin Time 12.6(H) 9.4 - 12.5 sec [facility] International Normalization Ratio 1.1 [facility] Comment: An INR <2.0 indicates [...] MD HEMATOLOGY ORDERABLE S Performing Organization Address [facility] Co de Phone Number [facility] [place] [address] * (ABNORMAL) Basic Metabolic Panel (non-fasting) (02/10/2019 5:40 AM EDT) [facility] Glucose 162 65 - 199 mg/dL [facility] Comment:Diabetes: >=200 mg/d L plus symptoms Blood Urea Nitrogen 17 8 - 18 mg/dL [facility] Creatinine 1.06 0.70 - 1.20 mg/dL [facility] Sodium 139 135 - 145 mmol/L [facility] Potassium 4.3 3.5 - 5.0 mmol/L [facility] Comment: Please note: ??Patients with WBC >100,000 may have falsely elevated Potassium levels. ??For accurate Potassium quantification in these patients send serum separator tube (gold top) for subsequent determinations. ??Contact the Clinical Chemistry Laboratory if there are any questions. Chloride 102 98 - 107 mmol/L [facility] Carbon Dioxide 24 22 - 31 mmol/L [facility] Anion Gap 13 5 - 15 mmol/L [facility] Calcium 9.4 8.5 - 10.5 mg/dL [facility] Est Glomerular Filtration Rate 59(L) >=60 mL/min/1. 73 m?? [facility] Comment: The eGFR was calculated using the CKD-EPI equation. As with all creatinine based estimates of kidney function, eGFR values calculated with the CKD-EPI equation are not accurate in patients with acute kidney failure, extremes of body mass or the acutely ill. [email or web address] eGFR 68 >=60 mL/min/1. 73 m?? [facility] Comment: The eGFR was calculated using the CKD-EPI equation. As with all creatinine based estimates of kidney function, eGFR values calculated with the CKD-EPI equation are not accurate in patients with acute kidney failure, extremes of body mass or the acutely ill. [email or web address] Blood specimen (specimen) 02/10/2019 5:40 AM EDT 02/10/2019 5:45 AM EDT Narrative Resulting Agency Comment Spec In Lab Reza Gutierrez MD CHEMISTRY ORDERABLES Performing Organization Address [facility] Co de Phone Number [facility] [place] [address] * Sedimentation rate (02/10/2019 5:40 AM EDT) Sedimentation Rate Automated 11 0 - 20 mm/hr [facility] Blood specimen (specimen) 02/10/2019 5:40 AM EDT 02/10/2019 5:45 AM EDT Narrative Resulting Agency Comment Spec In Lab Reza Gutierrez MD HEMATOLOGY ORDERABLE S Performing Organization Address [facility] Co de Phone Number [facility] [place] [address] * (ABNORMAL) CRP, acute inflammation (02/10/2019 5:40 AM EDT) C-Reactive Protein 18.2(H) <=4.9 mg/L [facility] Blood specimen (specimen) 02/10/2019 5:40 AM EDT 02/10/2019 5:45 AM EDT Narrative Resulting Agency Comment Spec In Lab Reza Gutierrez MD CHEMISTRY ORDERABLES Performing Organization Address [facility] Co de Phone Number [facility] [place] [address] * SCAN DOC: IMPLANTABLE DEVICES (02/10/2019 12:00 AM EDT) Narrative 02/10/2019 12:00 AM EDT Ordered by an unspecified provider. Scanning Provider MEDIA MGR SCAN EXT O RDR/RSLT * Film Library- Storage Only DX Knee (10/29/2017 12:00 AM EST) Narrative [facility] - 02/10/2019 2:36 AM EDT This exam is auto-finalizing. It's purpose is for storage only. Karen Nixon MD IMG FILM LIBRARY OR DERABLES Performing Organization Address [facility] de Phone Number [place], [place] * Film Library- Storage Only DX Knee (09/07/2017 12:00 AM EST) Narrative [facility] - 02/10/2019 2:35 AM EDT This exam is auto-finalizing. It's purpose is for storage only. Karen COBB FILM LIBRARY OR DERABLES Performing Organization Address [facility] de Phone Number [place], [place] documented in this encounter Visit Diagnoses [...] Oral, EVERY 4 HOURS PRN, Starting on Thu02/10/19 at 1421, Until Thu02/15/19 at 1613, Pain, Routine Given 02/14/2019 10:45 PM EDT 10 mg Given 02/14/2019 5:49 PM EDT 10 mg Given 02/14/2019 10:28 AM EDT 10 mg pantoprazole (PROTONIX) tablet 20 mg 20 mg, Oral, DAILY, First dose on Thu02/10/19 at 1600, Until Discontinued, DO NOT CRUSH OR OPEN Given 02/15/2019 8:36 AM EDT 20 mg Given 02/14/2019 8:23 AM EDT 20 mg Given 02/13/2019 8:13 AM EDT 20 mg polyethylene glycol (MIRALAX) packet 17 g 17 g, Oral, 2 TIMES DAILY, First dose on Thu02/10/19 at 2100, Until Discontinued, Routine Given 02/13/2019 8:12 AM EDT 17 g Given 02/12/2019 8:27 PM EDT 17 g Given 02/12/2019 8:52 AM EDT 17 g senna-docusate (PERICOLACE) 8.6-50 mg per tablet 2 tablet 2 tablet, Oral, 2 TIMES DAILY, First dose on Thu02/10/19 at 2100, Until Discontinued, Routine Given 02/15/2019 8:32 AM EDT 2 tablets Given 02/14/2019 8:52 PM EDT 2 tablets Given 02/14/2019 8:22 AM EDT 2 tablets sodium chloride 0.9 % flush 5 mL 5 mL, Intravenous, 2 TIMES DAILY, First dose on Thu02/10/19 at 2100, Until Discontinued, Recovery (Recovery-Hospital Unit), [...] Zimmerman RN)1320 (Given - Provider: Daniel Oscar RN)210 (Given - Provider: Mita Suarez RN) 0533 [...] RN)210 (Given - Provider: Mita Suarez RN) 0823 (Given - Provider: Liliana Cisneros RN)205 (Given - Provider: Mita Suarez RN) 0836 (Given - Provider: Liliana Cisneros RN) cefTRIAXone (ROCEPHIN) 2 g vial attach to sodium chloride 0.9% 50 mL Mini-Bag Plus (CANCELED) 2 g, Intravenous, EVERY 24 HOURS, First dose on Thu02/12/19 at 1915, Until Discontinued, Administer over 30 [...] Minutes, Indication for (Active or Suspected): Bone/Joint 0836 (New Bag - Provider: Liliana Cisneros RN - Comment: To administer at 0800 and 2000 per caser up for home scheduling convenience)905 (Stopped - Provider: [...] 08 (Given - Provider: Rae Hawkins RN) 0822 (Not Given - Provider: Liliana Cisneros RN - Reason: Order parameters not met - Comment: BP 113/76. Systolic < 130) 0833 (Given - Provider: Liilana Cisneros RN - Comment: BP 133/83) multivitamin with minerals (THERA-M) tablet 1 tablet 1 tablet, Oral, DAILY, First dose on Paty 02/10/19 at 1600, Until Discontinued, Routine 0813 (Given - Provider: [...] Mita Suarez RN - Reason: Patient/family refused) 0822 (Not Given - Provider: Liliana Cisneros [...] Routine 0813 (Given - Provider: Rae Hawkins RN)2108 (Given - Provider: Mita Suarez RN) 08 (Given - Provider: Liliana Cisneros RN)205 (Given - Provider: Mita Suarez RN) 0832 (Given - Provider: Liliana Cisneros RN) sodium chloride 0.9 % flush 5 mL 5 mL, Intravenous, 2 TIMES DAILY, First dose on Paty 02/10/19 at 2100, Until Discontinued, Recovery (Recovery-Hospital Unit), Routine 0812 (Given - Provider: Rae Hawkins RN)210 (Given - Provider: Mita Suarez RN) 0824 (Given - Provider: Liliana Cisneros RN)2056 (Given [...] at 1538, Until Thu02/15/19 at 1613, Constipation, Administer if needed per [...] Daniel Oscar, RN)1748 (Given - Provider: Rae Hawkins, ODIN)2224 (Given - Provider: Mita Suarez, ODIN) 1028 (Given - Provider: Ricky Foster)1749 (Given - Provider: Liliana Cisneros, ODIN)2245 (Given - Provider: Elvia Flores, ODIN) sodium chloride 0.9 % flush 5-20 mL [...] at 1538, Until 02/15/19 at 1613, Nausea, Vomiting, If multiple antiemetics [...] Unit) documented in this encounter Care Teams Patent Law Specialist Relationship Specialty Start Date End Date Sari Hay MD [address] [place] [address] PCP - General 05/21/11 documented as of this encounter
--- OUTSIDE RECORDS SUMMARY | 2024-05-09 04:27 | XMS_ITS | Encounter Summary ---
Author Organization Counts Include [facility] Address [facility] [place] [address] Care Team Providers Care Buttonhole Machine Operator Name Role Phone Sari Hay MD Primary Care Provider [phone] Reason for Visit * Auth/Cert - Closed [...] Expiration Date Visits Re quested Visits Authorized [id number] Closed 1 1 Encounter Details Date Type Department Care Team (Latest Contact Info) Description 10/01/2015 - 10/01/2015 6:14 AM EST Hospital Encounter [place] [address] [place] Koo MD [facility] [place] [address] Discharge Disposition: Home Social History Tobacco Use [...] Associated Diagnoses Date /Time FILM LIBRARY-FLUORO OR [id number] ONL Imaging Routine 10/01/2015 8:1 9 AM EST documented as of this encounter Visit Diagnoses Not on filedocumented in this encounter Care Teams Buttonhole Machine Operator Relationship Specialty Start Date End Date Sari Hay MD [address] [place] [address] PCP - General 05/21/11 documented as of this encounter
--- OUTSIDE RECORDS SUMMARY | 2024-05-09 04:27 | XMS_ITS | Encounter Summary ---
Author Organization Formerly [facility] [place] [address] Care Team Providers Care Material Flow Analyst Name Role Phone Sari Hay MD Primary Care Provider [phone] Reason for Visit * Reason Onset Date Comments Follow-up 01/14/2016 RESCHEDULE APPT FOR PATIENT Encounter Details Date Type Department Care Team (Late st Contact Info) Description 01/14/2016 [place] [address] Stanley Koo MD [facility] [place] [address] Follow-up (RESCHEDULE APPT FOR PATIENT) Social History [...] on filedocumented in this encounter Care Teams Material Flow Analyst Relationship Specialty Start Date End Date Sari Hay MD [address] [place] [address] PCP - General 05/21/11 documented as of this encounter
--- OUTSIDE RECORDS SUMMARY | 2024-05-09 04:27 | XMS_ITS | Encounter Summary ---
Author Organization [facility] Address [facility] [facility] [place] [address] Care Team Providers Care Bread Wrapper Name Role Phone Sari Hay MD Primary Care Provider [phone] Reason for Referral * Diagnostic Test (Routine) - Closed Specialty Diagnoses / Procedures Referred By Contac t Referred To Contact Radiology Diagnoses Hammer toe of left foot S/P orthopedic surgery, follow-up exam Procedures MRI Foot WO Contrast Left Stanley Koo MD [facility] [place] [address] [place] [address] Referral ID Status Reason Start Date Expiration Date V isits Requested Visits Authorized [id number] Closed Specialty Service Requested 01/24/2016 03/23/2016 1 1 Reason for Visit * Diagnostic Test (Routine) - Closed Specialty Diagnoses / Procedures Referred By Contbucky t Referred To Contact Radiology Diagnoses Hammer toe of left foot S/P orthopedic surgery, follow-up exam Procedures MRI Foot WO Contrast Left Stanley Koo MD [facility] [place] [address] [place] [address] Referral ID Status Reason Start Date Expiration Date V isits Requested Visits Authorized [id number] Closed Specialty Service Requested 01/24/2016 03/23/2016 1 1 Encounter Details Date Type Department Care Team (Latest Contact Info) Description 02/01/2016 11:06 AM EDT - 02/01/2016 11:59 PM EDT Hospital Encounter MRI at [facility] [place] [address] Stanley Koo MD [facility] [place] [address] Hammer toe of left foot; S/P orthopedic [...] MR images of the forefoot were acquired. Rpa-terofffbpyJ3-rytybuwy images were done density weighted images and [...] surgery documented in this encounter Care Teams Bread Wrapper Relationship Specialty Start Date End Date Sari Hay MD [facility] [address] [place] [address] PCP - General 05/21/11 documented as of this encounter
--- OUTSIDE RECORDS SUMMARY | 2024-05-09 04:27 | XMS_ITS | Encounter Summary ---
Author Organization [facility] Address [facility] [place] [address] Care Team Providers Care Medical Billing Coder Name Role Phone Sari Hay MD Primary Care Provider Encounter Details Date Type Department Care Team (Late st Contact Info) Description 02/10/2019 Telephone [place] [phone] Ricky Lozoya MD [facility] [address] [place]OPA[place] [address] Social History Tobacco Use Types Packs/Day Years [...] Transfer center call from Dr Harrison at [facility] re: [phone] otherwise healthy lady that [...] reason, the patient should be transferred to [facility] for management. Orthopaedics will evaluate the patient upon arrival. Please keep NPO and hold antibiotics. Ricky Lozoya MD p [phone] 02/10/19 2:25 AM documented in this encounter Plan of Treatment Not on file documented as of this encounter Visit Diagnoses Not on filedocumented in this encounter Care Teams Medical Billing Coder Relationship Specialty Start Date End Date Sari Hay MD [address] [place] [address] PCP - General 05/21/11 documented as of this encounter
--- OUTSIDE RECORDS SUMMARY | 2024-05-09 04:27 | XMS_ITS | Encounter Summary ---
Author Organization [facility] Address [facility] [place] [address] Care Team Providers Care Author'S Agent Name Role Phone Sari Hay MD Primary Care Provider [phone] Reason for Visit * Auth/Cert - Closed [...] Expiration Date Visits Re quested Visits Authorized [id number] Closed 1 1 Encounter Details Date Type Department Care Team (Late st Contact Info) Description 10/01/2015 7:26 AM EST Anesthesia Event [facility] [place] [address] Earl Torres MD [facility] [place] [address] Dafne Sullivan MD [facility] [address] [place] [address] Anesthesia Record Procedure Summary Procedure Name Responsible Anesthesiologist Anesthesia Start Time Anesthesia Stop Time OSTEOTOMY, METATARSAL, OTHER THAN FIRST, EACH (WRVU 5.48) (Left: Foot) Earl Torres MD 10/01/15 0726 10/01/15 0827 Events Date Time Event Comment 10/01/2015 0645 [...] 0646; median cubital vein right (antecubital fossa); tkoj-ymg-kjivzd catheter system; 20 gauge; Same Day RN; site benign ; no longer indicated, catheter intact, removed per policy/procedure; 10/01/15; 0937 10/01/15 0646 by Tiera Ppoe CRNA 10/01/15 0937 by Sole Marley, ODIN [...] Torres MD - 10/01/2015 8:59 AM EST [facility] Department of Anesthesiology Post-procedure Note Patient: Sissy Eugene Procedure Summary Date Anesthesia Start Anesthesia Stop Room / Location 10/01/15 0726 0827 [facility] OR [facility] Procedure Diagnosis Surgeon Responsible Provider OSTEOTOMY, [...] SpO2 93 % (10/01/15 0854) Patient Location: PACU/[facility] Level of Consciousness: Awake and Alert Pain [...] draped Laterality: left Ultrasound Guidance: live and fwn-pe-zhaii Skin Medication lidocaine 1% 3 ml Injection Needle Length: 5 cm Gauge: 22 Needle Type: G-wptec-osbjz Medication injection made incrementally with aspirations. Ankle [...] Consent was signed and placed in chart. Environmental Studies Program Director: I have seen and examined the patient. [...] MD - 10/01/2015 7:47 AM EST Earl oTrres MD ? 10/01/2015 ??7:47 AM Procedure: ??Anesthesia Block Block: Post-op Pain Control, ankle block Indication/Prep Position: supine Prep: chlorhexidine, patient draped Laterality: left Ultrasound Guidance: live and swl-oh-mnfyj Skin Medication lidocaine 1% 3 ml Injection Needle Length: 5 cm Gauge: 22 Needle Type: S-hwibv-xkdpy Medication injection made incrementally with aspirations. Ankle Block Nerve dosages Ropivicaine 0.5% Deep Peroneal 10 ml Saphenous 5 ml Superficial Peroneal 5 ml Tibial 10 ml Additional Notes No needle:nerve contact per ultrasound. ??No pain or paresthesia with injection. ??Negative heme with intermittent aspiration. Resident: Fellow: Attending Physician: Sites ~~~~~~~~~~~~~~~~~~~~~~~~~~~~~~~~~~~~~~~~~~~~~~~~~~~~~~~~~~~~ Earl Torres MD [facility] [facility] documented in this encounter Visit Diagnoses Not on filedocumented in this encounter Administered Medications Inactive Administered Medications - up to 3 most recent administrations Medication Order MAR Action Action Date Dose Rate Site ceFAZolin (ANCEF) 2 gram/50 mL infusion 1 dose, Starting on Thu10/01/15 at 0622, Until Thu10/01/15 at 0734, MAN [place]: cabinet override Given 10/01/2015 7:34 AM EST 2 g dexamethasone (DECADRON) injection PRN, Starting on Thu10/01/15 at 0735, Until Thu10/01/15 at 0839, Anesthesia Intra-op, Routine Given 10/01/2015 7:35 AM EST 8 mg dexmedetomidine (PRECEDEX) IV infusion (anesthesia) CONTINUOUS PRN, Starting on Thu10/01/15 at 0736, Until Thu10/01/15 at 0839, Anesthesia Intra-op, Routine [facility] 10/01/2015 7:36 AM EST 0.4 mcg/kg/hr 11.9 [...] mL/hr documented in this encounter Care Teams Author'S Agent Relationship Specialty Start Date End Date Sari Hay MD [address] [place] [address] PCP - General 05/21/11 documented as of this encounter
--- OUTSIDE RECORDS SUMMARY | 2024-05-09 04:27 | XMS_ITS | Encounter Summary ---
Author Organization [facility] Address [facility] Argenis dean [place] [id number] Care Team Providers Care Lighthouse Keeper Name Role Phone Sari Hay MD Primary Care Provider [phone] Reason for Referral * Consultation (Routine) - Specialty Diagnoses / Procedures Referred By Emmanuel cisneros Referred To Contact Infectious Diseases Diagnoses Pyogenic arthritis of left knee joint, due to unspecified organism Infection associated with internal right knee prosthesis, subsequent encounter Encounter for long-term (current) use of antibiotics Alma Matthew MD [facility] [place] [address] Alma Matthew MD [facility] [place] [address] Referral ID Status Reason Start Date Expiration Date V isits Requested Visits Authorized [id number] Assume Subset of Care 02/15/2019 02/15/2020 1 1 Reason for Visit * Reason Comments Hospital Transfer Knee Pain concern for peripros thetic knee infection * Auth/Cert Specialty Diagnoses / Procedures Referred By Emmanuel cisneros Referred To Contact Diagnoses Infection of prosthetic left knee joint Procedures EMERGENCY IPI Referral ID Status Reason Start Date Expiration Date Visits Re quested Visits Authorized [id number] 1 1 Encounter Details Date Type Department Care Team (Late st Contact Info) Description 02/10/2019 4:46 AM EDT - 02/15/2019 2:13 PM EDT Hospital Encounter 3 [place] [address] Reza Gutierrez MD [address] [facility] [place] [address] Louis Rodrigues MD [facility] [place] [address] Karen Nixon MD [facility] [place] [address] Rod Valdez MD [facility] [place] [address] Pyogenic arthritis of left knee joint, due [...] Sissy Eugene Patient Age: 53 y.o. Language: Chilean Race: White Ethnicity: Not nor Admit date: 02/10/2019 Discharge date and time: 02/15/2019 Attending Physician: Rod Valdez MD Discharge Physician: Rod Valdez MD Follow-up Recommendations for Providers: See discharge instructions for additional details. Future Appointments Date Time Provider Department Center 03/03/2019 10:00 AM Naina King DO [facility] 03/09/2019 1:30 PM [facility] DX ROOM 3 Xray [facility] 03/09/2019 2:30 PM Rod Valdez MD [facility] 03/16/2019 9:30 AM Renato Burton MD [facility] Inpatient Provider Contact Information: Rod Valdez MD Orthopedics: [phone] After hours and weekends, call [facility] Hide Shaker, , and have the Orthopedic resident paged. [...] 21.12) 02/11/2019 Catheter type: PICC Lot number: [id number] Procedure Details: Order received for catheter placement. [...] cell count and differential. ??Repeat markers at [facility] were elevated with CRP of 18 and [...] Discharge to: Home HOME HEALTH CARE AGENCY: ??[facility] ?? PHONE: [phone] FAX: [phone] Updated Allergies/ADRs: Allergies Allergen Reactions ??? Adhesive [...] bowel movement. You can also take an avhe-xvq-lfjxvyn medication, Miralax if needed to combat constipation. [...] maintain patency. 4. Please notify OPAT Program ([phone]) whenever you are unable to withdraw blood. Call your doctor ([phone]) if you develop: 1. Fever greater than 100.5 2. Severe nausea or vomiting 3. Increasing pain that is not controlled by pain medications 4. Increasing redness, swelling, or drainage from incisions 5. Change in sensation FOLLOW-UP APPOINTMENTS: 1. You will have follow-up appointments at [facility] as indicated below in Future Appointment and Orders. 2. You will need to have x-rays prior to your follow-up appointment on 03/09/19. Please come to Radiology, desk 3T, 1 hour BEFORE that appointment for those x-rays. Future Appointments Date Time Provider Department Center 03/03/2019 10:00 AM ChristineNaina quijano DO [facility] 03/09/2019 1:30 PM [facility] DX ROOM 3 [place] [facility] Rad Clin [...] resident on-call. General Instructions OFFICE OF CARE MANAGEMENT/Environmental Health Specialist/PROGRESS NOTE e-DH reviewed. Report received from Patient [...] administration and teaching reinforcement VN agency is: [facility]. PHONE: [phone] FAX: [phone] Home Infusion Vendor: Patient requested referral to [place], [place] or Plan: CM will continue to follow for coordination of care and to facilitate discharge planning. Future Appointments and Orders Future Appointments and Orders Future Appointments Provider Department Dept Phone 03/03/2019 10:00 AM Naina King DO Infectious Disease at [facility] Arrive at: Screening Tech Area 5C [phone] 03/09/2019 1:30 PM [facility] DX ROOM 3 XRay at [facility] Arrive at: Screening Tech Area 3T [phone] Please go to Screening Tech Area 3T ([facility] Location). 03/09/2019 2:30 PM Rod Valdez MD Orthopaedics at [facility] Arrive at: Screening Tech Area 3C [phone] 03/16/2019 9:30 AM Renato Burton MD Infectious Disease at [facility] Arrive at: Screening Tech Area 5C [phone] Future Orders Complete By Expires XR Knee 1-2 Views Left (Generic) [[id number] Custom] 03/10/2019 09/09/2019 Process Instructions: Scheduling Instructions: Comments: Questions: Where will study be performed?: [facility] Portable exam?: Reason for exam and clinical history: s/p polyswap 02/10/19 Other pertinent information: Is the patient ?: Unknown Stat read required?: Date of injury if applicable: Requested Time: OPAT: Order / Recommendation for Post Discharge IV Antibiotic Management [[id number] CPT(R)] As directed Process Instructions: If no progress note charted, please enter Clinical details in comments. Scheduling Instructions: Comments: Please Fax all results to: OPAT Program Infectious Disease Section [facility], [place] [address] FAX: Line care instructions per [facility] OPAT Program protocol. After hours, please contact the Infectious Disease Physician biofuels plant operations engineer at . If this order was signed greater than 72 hours prior to [facility] discharge, please call to confirm the accuracy [...] Alma Matthew MD Referral for Outpatient Antibiotics [[id number] CPT(R)] As directed Process Instructions: Scheduling Instructions: Comments: See OPAT orders for specific abx. Flushes Per protocol. Coordinate with [employer] [facility]. PHONE: [phone] FAX: [phone] Questions: Vendor / contact information: [facility] Patient location post discharge: home Service requested: antibiotics via PICC line Start date: 02/14/2019 Responsible MD post discharge contact info: ortho/pcp Referral to Home Health - at DISCHARGE [[id number] CPT(R)] As directed Process Instructions: Scheduling Instructions: Comments: DOCUMENTATION FOR VNA SERVICES (INCLUDING THOSE PATIENTS WITH MEDICARE COVERAGE REQUIRING HOME VNA SERVICES AND/OR HOSPICE SERVICES) PATIENT'S LOCATION: Sissy Eugene [address] [place] [address] [address] [facility] [address] (home) Cell: Telephone Information: Advertising Solicitor's Name: patient and spouse In discussion with the attending physician, it is certified that this patient is under their care and that they, or a Nurse Practitioner,Clinical Nurse specialist or Physician Conciliation Court Judge who is working directly with them, had [...] PICC line dressing change weekly. Supplies from: [place], [place] or Venous Access Device Maintenance Protocols [...] program if appropriate. HOME HEALTH CARE AGENCY: [facility]. PHONE: [phone] FAX: [phone] Start of care: 02/14/2019 Please note that any additional orders needs or changes will need to be obtained from this patient's PCP: MD Margarita [address] / [facility] [address] All A agencies which cover the area of patient's residence have been reviewed, either verbally shaun writing, and patient/family have chosen the home health care agency noted Questions: Agency name and contact information: [facility] Patient location post discharge: home What services are requested: Registered Nurse Start date: 02/14/2019 Responsible MD post discharge contact info: ortho/pcp Primary Care Provider: Sari Hay MD [phone] Discharge References/Attachments None documented in this encounter Discharge Instructions * Discharge Instructions* Janene Hu RN - 02/14/2019 10:35 PM EDT OFFICE OF CARE MANAGEMENT/Environmental Health Specialist/PROGRESS NOTE e-DH reviewed. Report received from Patient [...] administration and teaching reinforcement VN agency is: [facility] PHONE: [phone] FAX: [phone] [facility] Infusion [facility] Plan: CM will continue to follow [...] bowel movement. You can also take an jned-reg-qsteohd medication, Miralax if needed to combat constipation. [...] maintain patency. 4. Please notify OPAT Program ([phone]) whenever you are unable to withdraw blood. Call your doctor ([phone]) if you develop: 1. Fever greater than 100.5 2. Severe nausea or vomiting 3. Increasing pain that is not controlled by pain medications 4. Increasing redness, swelling, or drainage from incisions 5. Change in sensation FOLLOW-UP APPOINTMENTS: 1. You will have follow-up appointments at [facility] as indicated below in Future Appointment and Orders. 2. You will need to have x-rays prior to your follow-up appointment on 03/09/19. Please come to Radiology, desk 3T, 1 hour BEFORE that appointment for those x-rays. Future Appointments Date Time Provider Department Center 03/03/2019 10:00 AM Naina King DO [facility] 03/09/2019 1:30 PM [facility] DX ROOM 3 Xray [facility] Rad Clin [...] Meade MD Infectious Disease Fellow Personal Pager #[phone] 02/15/2019 * Liliana Cisneros RN - 02/15/2019 [...] Pager # Check daily e-DH reviewed. This inspector automatic typewriter confirmed that [place] can see patient tonight for initial dose of antibiotic @ 8:30 Pt ready to D/C [facility] will deliver medication to home between 4 pm and 6pm. ?? Plan: CM will continue to follow for coordination of care and to facilitate discharge planning. ? Corine Hu RN CM Pager [phone] * Pia Bennett MD - 02/15/2019 5:48 [...] Brisk capillary refill distally. DP pulse palpable. [facility] Lab Results Component Value Date NA 143 [...] Infec 5C [facility] 03/09/2019 1:30 PM [facility] DX ROOM 3 Xray [facility] Rad Clin 03/09/2019 2:30 PM Rod Valdez MD [facility] 03/16/2019 9:30 AM Renato Burton MD [facility] * Janene Hu RN - 02/14/2019 2:49 PM EDT OFFICE OF CARE MANAGEMENT/Environmental Health Specialist/PROGRESS NOTE e-DH reviewed. Report received from Patient [...] administration and teaching reinforcement VN agency [facility] [employer] PHONE: [phone] FAX: [phone] Home Infusion Vendor: Patient requested referral to [place], [place] or Plan: CM will continue to follow for coordination of care and to facilitate discharge planning. Janene Hu RN CM Pager [phone] * Pia Bennett MD - 02/14/2019 5:43 [...] better with new dressing. Looking forward to OR home today. Denies any increased left knee [...] Time Provider Department Center 03/09/2019 1:30 PM [facility] DX ROOM 3 Xray [facility] Rad Clin 03/09/2019 2:30 PM Rod Valdez MD [facility] Ortho [address] [place] [address] * Renato Burton MD - 02/13/2019 3:24 [...] Time Provider Department Center 03/09/2019 1:30 PM [facility] DX ROOM 3 MH Xray Leb Rad [...] Time Provider Department Center 03/09/2019 1:30 PM [facility] DX ROOM 3 Xray [facility] Rad Clin [...] was instructed to contact Regional Anesthesia Team ([id number]) for any unresolved sensory or motor deficits. ?? Thank you for the opportunity to have participated in the care of this patient. NICHOLAS NUNEZ MD Regional Team pager [phone] Associated attestation - Zeb Maldonado MD - [...] ??? sodium chloride 0.9% 1,000 mL (02/10/19 0477) OBJECTIVE: Temp: [36.3 ??C (97.3 ??F)-37.2 ??C (99 ??F)] Heart Rate: [59-78] Resp: [12-20] BP: (100-122)/(57-87) Intake/Output Summary (Last 24 hours) at 02/11/2019 0560 Last data filed at 02/11/2019 0438 Gross per 24 hour Intake 2440 ml [...] Time Provider Department Center 03/09/2019 1:30 PM [facility] DX ROOM 3 MH Xray Leb Rad [...] Time Provider Department Center 03/09/2019 1:30 PM [facility] DX ROOM 3 Xray Leb Rad Clin [...] is a 53 y.o. female transferred from [employer] who is s/p Left TKA by Dr Barreto at the [facility] in 09/07/2017. She reports that she did not do well with respect to stiffness and patellar pain and so Dr Barreto performed an arthroscopic debridement of fibrotic material/adhesions around the patella on 01/18/19. 5 days post op, she began noticing a fluctuant bump over the healed medial portal site. She returned to the [facility] on02/09/19 for a post-op visit, and Dr Barreto aspirated approximately 20 cc sanguinous appearing fluid from the knee, which he reports that he discarded without sending for analysis because it lookedlike blood. She left clinic and continued to ambulate as normal until 2100, until she developed the acute onset of excruciating pain. She presented to the [facility] ED afterwards. WBC of 13.4, but was reportedly afebrile, rr 18, hr 70, bp 123/77, ESR 6 (NL < 30), CRP 8 (NL < 10). Repeat aspirate of the knee with: 4500 WBC, 94% PMN, negative gram stain. ?? Transferred to [facility] for appropriate care. ?? Only complaint at [...] EACH performed by Stanley Koo MD at [facility] ??? PRO XFER SINGLE SUPERFICI LOW LEG TENDON Left 10/01/2015 TENDON TRANSFER, ANKLE, SUPERFICIAL performed by Stanley Koo MD at [facility] Allergies Allergen Reactions ??? Adhesive Bandage Rash ??? Codeine Nausea Only No current facility-administered medications on file prior to encounter. Current Outpatient Medications on File Prior to Encounter Medication Sig Dispense Refill ??? lisinopril (PRINIVIL;ZESTRIL) 30 mg Tablet Take 30 mg by mouth daily. 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 Please page Orthopaedic consults ([phone]) with any questions or concerns. ?? Ricky [...] cell count and differential. Repeat markers at [facility] were elevated with CRP of 18 and [...] to the planned procedure. Hand Hygiene: The contract coordinator did perform hand hygiene prior to line insertion. Catheter type: PICC Lot number: [id number] Procedure Technique: Skin was prepped with chlorhexidine. [...] in this encounter ED Notes * Lizett Maret RN - 02/10/2019 10:10 AM EDT Report [...] knee arthroscopy approximately 3 weeks ago at [facility] who presents to the Emergency Department with worsening left knee pain and swelling. Patient reports worsening pain over the past several weeks with associated swelling. She was seen at the ED at [facility] and underwent arthrocentesis which showed 45, [...] Spec Type BF Knee, Left Color BF [place] Appearance BF Cloudy WBC BF Ct 27,738 [...] surgery done roughly 3 weeks ago at [facility]. Now presenting with increased swelling and pain. [...] being transferred to the emergency department from [employer], accepted by myself and will be evaluated [...] Comment: (P) Pt lives with her in [facility] in a 2 level home but she will be on the first level. OOB toward L side of high bed. 3- 4 stairs to enter w/o railing, uses crutches(therex, functional activities, home management) Prior Functional Level Comment: (P) Fully indep but limited by L knee disability. 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 BT shower, no chair Staff [...] care, occupational therapy HAILY MEJIA, PT Pager: [phone] Inpatient Physical Therapy 02/14/19 1115 Rehab Evaluation Document Type therapy note (daily note) Total Evaluation Minutes, Physical Therapy 43 General Information Treatment Number PT 3 Left Lower Extremity (Weight Bearing Status) weight-bearing as tolerated Living Environment Living Environment Comment Pt lives with her in [place] [facility] in a 2 level home but she will be on the first level. OOB toward L side of high bed. 3-4 stairs to enter w/o railing, uses crutches (therex, functional activities, home management) Functional Level Prior Prior Functional Level Comment Fully indep but limited by L knee disability. 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 BT shower, no chair Cognitive [...] for ad leora w/ crutches Gait Assessment/Treatment Carroll (Gait) conditional independence Assistive Device (Gait) axillary [...] all bed mobility activities Bed Mobility Goal, Carroll Level conditional independence Bed Mobility Goal, Assistive Device leg social media senior associate Bed Mobility Goal, Date Goal Reviewed 02/14/19 Bed Mobility Goal, Outcome Achieved goal met Gait Training Goal Gait Training Goal, Date Established 02/11/19 Gait Training Goal, Time to Achieve 2 - 3 days (by DC to home w/ home PT) Gait Training Goal, Carroll Level conditional independence Gait Training Goal, Assist [...] Activity Type all transfers Transfer Train Goal, Carroll Level conditional independence Transfer Training Goal, Assist Device crutches, axillary;shower chair Transfer Train Goal, Date Goal Reviewed 02/14/19 Transfer Training Goal, Outcome goal met Physical Therapy Goal PT Goal, Date Established 02/11/19 PT Goal, Time to Achieve 2 - 3 days (by DC to home w/ home PT) PT Goal, Activity Type Pt will understand and perform TKA exs correctly PT Goal, Carroll Level supervision required PT Goal, Additional Goal [...] (Interventions Implemented as Appropriate) 02/13/19 1543 02/13/19 5827 Coping/Psychosocial Plan Of Care Reviewed With -- [...] 02/13/19 1543 Health Knowledge, Opportunity to Enhance (Adult,NICU,[place],Obstetrics,Pediatric) Knowledgeable about Health Subject/Topic making progress toward [...] outcome Problem: Health Knowledge, Opportunity to Enhance (Adult,NICU,[place],Obstetrics,Pediatric) Intervention: Enhance Health Knowledge 02/12/191945 Coping Strategies [...] 02/12/19 142 Health Knowledge, Opportunity to Enhance (Adult,NICU,[place],Obstetrics,Pediatric) Knowledgeable about Health Subject/Topic making progress toward [...] dressing And to change. Patient encouraged by ATLASSIAN ADMINISTRATOR to apply ice to see to if [...] patient;nursing Problem: Health Knowledge, Opportunity to Enhance (Adult,NICU,[place],Obstetrics,Pediatric) Goal: Identify Related Risk Factors and Signs [...] Enhance (Adult,NICU,,Obstetrics,Pediatric) Intervention: Enhance Health Knowledge 02/11/19 699 Coping Strategies Supportive Measures active listening utilized;verbalization [...] (PICC) Teaching Sheet Peripherally inserted central catheters (uyni-cl-ivee) (PICC) are used when you need IV [...] midline catheter? PICC lines are used for detention treatments. PICC lines may be used for [...] can be set up via the nurse Environmental Health Specialist to help you. What are possible complications [...] Efficacy, Safety, Use, and Administration of [employer], [employer] 2005 * Plan of Care - [...] Environment Comment: Pt lives with her in [place] [facility] in a 2 level home but she will beon the first level. OOB toward L side of high bed. 3-4 stairs to enter w/o railing, uses crutches Prior Functional Level Comment: Fully indep but limited by L knee disability. 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 BT shower, no chair Staff [...] care, occupational therapy HAILY MEJIA, PT Pager: [phone] Inpatient Physical Therapy 02/11/19 5637 Rehab Evaluation Document Type evaluation Total Evaluation [...] Environment Comment Pt lives with her in [facility] in a 2 level home but she will be on the first level. OOB toward L side of high bed. 3-4 stairs to enter w/o railing, uses crutches Functional Level Prior Prior Functional Level Comment Fully indep but limited by L knee disability. 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 BT shower, no chair Cognitive [...] Indicators of Pain grimace;guarding Pain Management Interventions cvetus-onp-svjzm dosing utilized;cold applied;pain management plan reviewed with [...] Mobility Assessment/Treatment Assistive Device (Bed Mobility) leg social media senior associate (bed flat and elevated, out to L side) Vhgcak-ed-Efn Carroll (Bed Mobility) contact guard assist;verbal cues required Xmt-nb-Uyvqav Carroll (Bed Mobility) not tested Safety Issues (Bed Mobility) decreased use of legs for bridging/pushing Impairments (Bed Mobility) motor control impaired;pain;ROM (range of motion) decreased;strength decreased Comment (Bed Mobility) Able to use leglifter but did provide CG of LLE comig over EOB Transfer Assessment/Treatment Carroll (Sit-Stand Transfers) verbal cues required;contact guard assist;nonverbal cues required (demo/gesture) Carroll (Stand-Sit Transfers) verbal cues required;contact guard assist;nonverbal cues required (demo/gesture) Mwd-Lkjyw-Url Assistive Device (Transfers) axillary crutches Maintain Weight Bearing Status (Transfers) able to maintain weight bearing status Safety Issues (Transfers) step length decreased Comment (Transfers) Pt able to safely transfer, cues to advance LLE prior to sittng Gait Assessment/Treatment Carroll (Gait) nonverbal cues required (demo/gesture);verbal cues required;supervision required Assistive Device (Gait) axillary crutches Distance in Feet (Gait) 80 Gait Pattern Analysis swing-through gait Deviations (Gait) elba decreased;limb motion velocity decreased;step length decreased;stride length decreased;dctqm-fi-zpnkoq ratio decreased;weight- shifting ability decreased Maintain Weight [...] 4 - None To walk in [facility]? 4 - None Climbing 3-5 steps with a railing?* 3 - A Little [facility] Basic Mobility Raw Score 22 Basic Mobility Standardized T-Scale Score 53.28 Basic Mobility CMS 0-100% 20.91 AM-PAC Basic Mobility CMS Modifier CJ Coping Verbalized Emotional State acceptance Observed Emotional State accepting;apprehensive;cooperative;calm Plan of Care Review Plan Of Care Reviewed With patient;spouse (RN, assistant business manager) Progress progress toward functional goals as [...] all bed mobility activities Bed Mobility Goal, Carroll Level conditional independence Bed Mobility Goal, Assistive Device leg social media senior associate Gait Training Goal Gait Training Goal, Date Established 02/11/19 Gait Training Goal, Time to Achieve 2 - 3 days (by DC to home w/ home PT) Gait Training Goal, Carroll Level conditional independence Gait Training Goal, Assist [...] Activity Type all transfers Transfer Train Goal, Carroll Level conditional independence Transfer Training Goal, Assist Device crutches, axillary;shower chair Physical Therapy Goal PT Goal, Date Established 02/11/19 PT Goal, Time to Achieve 2 - 3 days (by DC to home w/ home PT) PT Goal, Activity Type Pt will understand and perform TKA exs correctly PT Goal, Carroll Level supervision required PT Goal, Additional Goal [...] Pertinent/Service Specific Information: Health/Prescription Coverage: Primary Insurance: [employer] [place] Secondary Insurance: N/A Prescription Coverage: yes Preferred Pharmacy: per demographic Other: Primary Care Provider: Sari Hay MD [phone] Patient/Caregiver Goals of Treatment: Return home to family care with IV abx at home or go daily toinfusion suite if abx to be given there. OPAT not complete Potential Needs for Transition of Care: Rehab/SNF: Home Health: The patient/help desk representative has been provided a list of Home Health Agencies/DME vendors which servetheir preferred geographic area. A letter describing our affiliations was reviewed with them and they were educated about their right to choose where referrals are placed. [facility] PHONE: [phone] FAX: [phone] Patient requests referral to [place], [place] or Expected date of discharge: 02/14/19 Referral routed to the [employer] for matching with agency/vendor and to provide [...] of care planning. Caprice Hale RN Pager: [phone] * Plan of Care - Mita Suarez [...] of left TKA on 09/07/17 transferred from [facility] for concern for PJI. Following her [...] negative gram stain. She was transferred to [facility] and repeat aspirate with 27,738 wbc 94%pmns [...] EACH performed by Stanley Koo MD at [facility] ??? PRO XFER SINGLE SUPERFICI LOW LEG TENDON Left 10/01/2015 TENDON TRANSFER, ANKLE, SUPERFICIAL performed by Stanley Koo MD at [facility] Family History: Family History Problem Relation Age of Onset ??? Hypertension Father Social History and Habits: , lives with . 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 Non-smoker, no alcohol use Physical Exam: Last [...] Naina King DO Infectious Disease Fellow Pager [phone] Associated attestation - Alexy Lerner MD - [...] be switched to IV vancomycin. 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 Eugene will need treatment with at least 2 weeks of parenteral therapy prior to transitioning to an oral rifampin-based regimen (e.g. Ciprofloxacin/rifampin). This will need to continue out to 6 months. Alexy Lerner MD * Op Note - Rod Valdez MD - 02/10/2019 1:26 PM EDT [facility] Operative Note Patient Name: Sissy Eugene : [id number] MR#: [id number] Case Date: 02/10/2019 Surgeon: Surgeon(s) and Role: [...] cell count and differential. Repeat markers at [facility] were elevated with CRP of 18 and [...] Operative Note Patient Name: Sissy Eugene : [id number] MR#: [id number] Case Date: 02/10/2019 Surgeon: Surgeon(s) and Role: [...] AM EDT Pt arrives by ambulance from [facility]. Pt has been having L knee [...] 3:23 AM EDT) Neutrophil % 50.9 % [facility] Neutrophil Absolute 3.41 1.70 - 6.10 x10(3)/[facility] Lymph % 31.1 % [facility] Lymphocytes Abs 2.1 0.9 - 3.2 x10(3)/[facility] Monocyte % 10.8 % [facility] Monocyte Abs 0.7 0.3 - 0.9 x10(3)/[facility] Eos % 6.0 % [facility] Eosinophils Abs 0.4 0.0 - 0.4 x10(3)/[facility] Basophil % 0.9 % [facility] Baso Absolute 0.1 0.0 - 0.1 x10(3)/[facility] Immature Gran % 0.30 % [facility] Comment: Immature granulocytes(IG's)percentage and absolute count will include metamyelocytes, myelocytes, and promyelocytes. Blood smears from CBCs yielding IG's will be scanned manually for concordance. If this scan disagrees with the automated IG or if promyelocytes are noted, a manual differential will be performed. Immature Gran Absolute 0.02 0.00 - 0.04 x10(3)/[facility] Blood specimen (specimen) 02/13/2019 3:23 AM EDT 02/13/2019 3:29 AM EDT Narrative Resulting Agency Comment Spec In Lab Pia Bennett MD HEMATOLOGY ORDERABL ES Performing Organization Address City/[facility]/ZIP Co de Phone Number [facility] [place] [address] * (ABNORMAL) Hemogram (02/13/2019 3:23 AM EDT) White Blood Cell 6.7 4.0 - 9.5 x10(3)/mc L [facility] Red Blood Cell 3.82(L) 4.00 - 5.21 x10(6)/mc L [facility] Hemoglobin 10.9(L) 11.7 - 15.5 gm/dL [facility] Hematocrit 33.8(L) 35.7 - 45.8 % [facility] Mean Cell Volume 88.5 82.6 - 94.4 fL [facility] Mean Cell Hemoglobin 28.5 27.1 - 32.0 pg [facility] Mean Cell Hemoglobin Concentration 32.2 31.7 - 35.0 gm/dL [facility] Platelet 241 145 - 357 x10(3)/mc L [facility] RDW Standard Deviation 44.1 37.0 - 46.0 [facility] RDW coefficient of variation 13.5 11.5 - 14.1 % [facility] Mean Platelet Volume 9.5 7.6 - 12.9 [facility] NRBC% auto 0.0 % [facility] NRBC Absolute 0.000 0.000 - 0.000 x10(3)/mc L [facility] Blood specimen (specimen) 02/13/2019 3:23 AM EDT 02/13/2019 3:29 AM EDT Narrative Resulting Agency Comment Spec In Lab Pia Bennett MD HEMATOLOGY ORDERABL ES Performing Organization Address City/[facility]/ZIP Co de Phone Number [facility] [place] [address] * (ABNORMAL) Basic Metabolic Panel (non-fasting) (02/13/2019 3:23 AM EDT) Glucose 109 65 - 199 mg/dL [facility] Comment:Diabetes: >=200 mg/d L plus symptoms Blood Urea Nitrogen 6(L) 8 - 18 mg/dL [facility] Creatinine 0.77 0.70 - 1.20 mg/dL [facility] Sodium 143 135 - 145 mmol/L [facility] Potassium 3.5 3.5 - 5.0 mmol/L [facility] Comment: Please note: ??Patients with WBC >100,000 may have falsely elevated Potassium levels. ??For accurate Potassium quantification in these patients send serum separator tube (gold top) for subsequent determinations. ??Contact the Clinical Chemistry Laboratory if there are any questions. Chloride 106 98 - 107 mmol/L [facility] Carbon Dioxide 28 22 - 31 mmol/L [facility] Anion Gap 9 5 - 15 mmol/L [facility] Calcium 8.7 8.5 - 10.5 mg/dL [facility] Est Glomerular Filtration Rate 87 >=60 mL/min/1. 73 m?? [facility] Comment: The eGFR was calculated using the CKD-EPI equation. As with all creatinine based estimates of kidney function, eGFR values calculated with the CKD-EPI equation are not accurate in patients with acute kidney failure, extremes of body mass or the acutely ill. [email or web address] eGFR 101 >=60 mL/min/1. 73 m?? [facility] Comment: The eGFR was calculated using the CKD-EPI equation. As with all creatinine based estimates of kidney function, eGFR values calculated with the CKD-EPI equation are not accurate in patients with acute kidney failure, extremes of body mass or the acutely ill. [email or web address] Blood specimen (specimen) 02/13/2019 3:23 AM EDT 02/13/2019 3:28 AM EDT Narrative Resulting Agency Comment Spec In Lab Karen Nixon MD CHEMISTRY ORDERABLE S Performing Organization Address City/[facility]/[place] [address] * (ABNORMAL) Differential, Automated (02/12/2019 4:08 AM EDT) Neutrophil % 59.3 % [facility] Neutrophil Absolute 5.76 1.70 - 6.10 x10(3)/mc L [facility] Lymph % 24.5 % [facility] Lymphocytes Abs 2.4 0.9 - 3.2 x10(3)/ L [facility] Monocyte % 11.7 % [facility] Monocyte Abs 1.1(H) 0.3 - 0.9 x10(3)/ L [facility] Eos % 3.5 % [facility] Eosinophils Abs 0.3 0.0 - 0.4 x10(3)/ L [facility] Basophil % 0.6 % [facility] Baso Absolute 0.1 0.0 - 0.1 x10(3)/ L [facility] Immature Gran % 0.40 % [facility] Comment: Immature granulocytes(IG's)percentage and absolute count will include metamyelocytes, myelocytes, and promyelocytes. Blood smears from CBCs yielding IG's will be scanned manually for concordance. If this scan disagrees with the automated IG or if promyelocytes are noted, a manual differential will be performed. Immature Gran Absolute 0.04 0.00 - 0.04 x10(3)/mc L [facility] Blood specimen (specimen) 02/12/2019 4:08 AM EDT 02/12/2019 4:15 AM EDT Narrative Resulting Agency Comment Spec In Lab Pia Bennett MD HEMATOLOGY ORDERABL ES Performing Organization Address City/[facility]/ZIP Co de Phone Number [facility] [place] [address] * (ABNORMAL) Hemogram (02/12/2019 4:08 AM EDT) [facility] White Blood Cell 9.7(H) 4.0 - 9.5 x10(3)/[facility] LAB[facility] Red Blood Cell 3.99(L) 4.00 - 5.21 x10(6)/[facility] Hemoglobin 11.7 11.7 - 15.5 gm/dL [facility] Hematocrit 36.0 35.7 - 45.8 % [facility] Mean Cell Volume 90.2 82.6 - 94.4 fL [facility] Mean Cell Hemoglobin 29.3 27.1 - 32.0 pg [facility] Mean Cell Hemoglobin Concentration 32.5 31.7 - 35.0 gm/dL [facility] Platelet 233 145 - 357 x10(3)/[facility] LABORAT[facility] RDW Standard Deviation 45.0 37.0 - 46.0 [facility] RDW coefficient of variation 13.5 11.5 - 14.1 % [facility] Mean Platelet Volume 9.6 7.6 - 12.9 fL [facility] NRBC% auto 0.0 % [facility] NRBC Absolute 0.000 0.000 - 0.000 x10(3)/[facility] Blood specimen (specimen) 02/12/2019 4:08 AM EDT 02/12/2019 4:15 AM EDT Narrative Resulting Agency Comment Spec In Lab Pia Bennett MD HEMATOLOGY ORDERABL ES [facility] [place] [address] * Basic Metabolic Panel (non-fasting) (02/12/2019 4:08 AM EDT) [facility] Glucose 102 65 - 199 mg/dL [facility] Comment:Diabetes: >=200 mg/d L plus symptoms Blood Urea Nitrogen 9 8 - 18 mg/dL [facility] Creatinine 0.84 0.70 - 1.20 mg/dL [facility] Sodium 141 135 - 145 mmol/L [facility] Potassium 3.8 3.5 - 5.0 mmol/L [facility] Comment: Please note: ??Patients with WBC >100,000 may have falsely elevated Potassium levels. ??For accurate Potassium quantification in these patients send serum separator tube (gold top) for subsequent determinations. ??Contact the Clinical Chemistry Laboratory if there are any questions. Chloride 105 98 - 107 mmol/L [facility] Carbon Dioxide 26 22 - 31 mmol/L [facility] Anion Gap 10 5 - 15 mmol/L [facility] Calcium 8.9 8.5 - 10.5 mg/dL [facility] Est Glomerular Filtration Rate 78 >=60 mL/min/1. 73 m?? [facility] Comment: The eGFR was calculated using the CKD-EPI equation. As with all creatinine based estimates of kidney function, eGFR values calculated with the CKD-EPI equation are not accurate in patients with acute kidney failure, extremes of body mass or the acutely ill. [email or web address] eGFR 91 >=60 mL/min/1. 73 m?? [facility] Comment: The eGFR was calculated using the CKD-EPI equation. As with all creatinine based estimates of kidney function, eGFR values calculated with the CKD-EPI equation are not accurate in patients with acute kidney failure, extremes of body mass or the acutely ill. [email or web address] Blood specimen (specimen) 02/12/2019 4:08 AM EDT 02/12/2019 4:15 AM EDT Narrative Resulting Agency Comment Spec In Lab Kraen Nixon MD CHEMISTRY ORDERABLE S [facility] [place] [address] * XR PICC Placement Over 5 Years [...] please contact the number below. Luz Gillette SAWMILLING OPERATOR IMG FLUORO ORDERABL ES * Place PICC Line: Contact Vascular Access Page [phone] Extremity to exclude: No restrictions; Is PICC [...] to the planned procedure. Hand Hygiene: The contract coordinator did perform hand hygiene prior to line insertion. Catheter type: PICC Lot number: [id number] Procedure Technique: Skin was prepped with chlorhexidine. [...] 0 cm Tip in SVC per DR CZUM. The line was not placed over a guidewire. Post Procedure: Diagnosis: INFECTED LEFT TKA Blood return noted on aspiration of line after placement confirmed. 5 mls of normal saline infused free flowing to gravity via PICC after insertion. Sterile dressing applied: Biopatch and Sorbaview. Findings: The patient did tolerate the procedure well. No Complications. Procedure Comments: DOMITILA WARD RN 02/11/2019 Luz Jose Roberto [place]lette APRN PROCEDURE/MINOR ROSEANNA GICAL ORDERABLES * Hemoglobin A1c (02/11/2019 3:07 AM EDT) Hemoglobin A1c 5.4 4.3 - 5.6 % [facility] Comment: Reference Range: 4.3 - [...] Mellitus, Diabetes Care 2013; 36: Suppl. 1, S67-84 Estimated Average Glucose 109 mg/dL [facility] Comment: eAG equivalents for HbA1c [...] into estimated average glucose values. ??Diabetes Care 2008:31(8):6726-8442. Blood specimen (specimen) Venous Draw / Unknown 02/11/2019 3:07 AM EDT 02/11/2019 10:45 AM EDT Narrative Resulting Agency Comment Spec In Lab Maria Luisa ANDERSEN CHEMISTRY ORDERAB LES [facility] [place] [address] * (ABNORMAL) Differential, Automated (02/11/2019 3:07 AM EDT) Neutrophil % 70.2 % [facility] Neutrophil Absolute 6.36(H) 1.70 - 6.10 x10(3)/mc L [facility] Lymph % 15.3 % [facility] Lymphocytes Abs 1.4 0.9 - 3.2 x10(3)/mc L [facility] Monocyte % 12.9 % [facility] Monocyte Abs 1.2(H) 0.3 - 0.9 x10(3)/mc L [facility] Eos % 1.0 % [facility] Eosinophils Abs 0.1 0.0 - 0.4 x10(3)/mc L [facility] Basophil % 0.3 % [facility] Baso Absolute 0.0 0.0 - 0.1 x10(3)/mc L [facility] Immature Gran % 0.30 % [facility] Comment: Immature granulocytes(IG's)percentage and absolute count will include metamyelocytes, myelocytes, and promyelocytes. Blood smears from CBCs yielding IG's will be scanned manually for concordance. If this scan disagrees with the automated IG or if promyelocytes are noted, a manual differential will be performed. Immature Gran Absolute 0.03 0.00 - 0.04 x10(3)/ L [facility] Blood specimen (specimen) 02/11/2019 3:07 AM EDT 02/11/2019 3:26 AM EDT Narrative Resulting Agency Comment Spec In Lab Pia Bennett MD HEMATOLOGY ORDERABL ES [facility] [place] [address] * Hemogram (02/11/2019 3:07 AM EDT) White Blood Cell 9.1 4.0 - 9.5 x10(3)/[facility] Red Blood Cell 4.23 4.00 - 5.21 x10(6)/[facility] Hemoglobin 12.2 11.7 - 15.5 gm/dL [facility] Hematocrit 38.1 35.7 - 45.8 % [facility] Mean Cell Volume 90.1 82.6 - 94.4 [facility] Mean Cell Hemoglobin 28.8 27.1 - 32.0 pg [facility] Mean Cell Hemoglobin Concentration 32.0 31.7 - 35.0 gm/dL [facility] Platelet 229 145 - 357 x10(3)/[facility] RDW Standard Deviation 44.2 37.0 - 46.0 [facility] RDW coefficient of variation 13.5 11.5 - 14.1 % [facility] Mean Platelet Volume 9.8 7.6 - 12.9 [facility] NRBC% auto 0.0 % [facility] NRBC Absolute 0.000 0.000 - 0.000 x10(3)/[facility] Blood specimen (specimen) 02/11/2019 3:07 AM EDT 02/11/2019 3:26 AM EDT Narrative Resulting Agency Comment Spec In Lab Pia Bennett MD HEMATOLOGY ORDERABL ES [facility] [place] [address] * Basic Metabolic Panel (non-fasting) (02/11/2019 3:07 AM EDT) Glucose 121 65 - 199 mg/dL [facility] Comment:Diabetes: >=200 mg/d L plus symptoms Blood Urea Nitrogen 13 8 - 18 mg/dL [facility] Creatinine 0.80 0.70 - 1.20 mg/dL [facility] Sodium 140 135 - 145 mmol/L [facility] Potassium 3.9 3.5 - 5.0 mmol/L [facility] Comment: Please note: ??Patients with WBC >100,000 may have falsely elevated Potassium levels. ??For accurate Potassium quantification in these patients send serum separator tube (gold top) for subsequent determinations. ??Contact the Clinical Chemistry Laboratory if there are any questions. Chloride 104 98 - 107 mmol/L [facility] Carbon Dioxide 25 22 - 31 mmol/L [facility] Anion Gap 11 5 - 15 mmol/L [facility] Calcium 8.8 8.5 - 10.5 mg/dL [facility] Est Glomerular Filtration Rate 83 >=60 mL/min/1. 73 m?? [facility] Comment: The eGFR was calculated using the CKD-EPI equation. As with all creatinine based estimates of kidney function, eGFR values calculated with the CKD-EPI equation are not accurate in patients with acute kidney failure, extremes of body mass or the acutely ill. [email or web address] eGFR 96 >=60 mL/min/1. 73 m?? [facility] Comment: The eGFR was calculated using the CKD-EPI equation. As with all creatinine based estimates of kidney function, eGFR values calculated with the CKD-EPI equation are not accurate in patients with acute kidney failure, extremes of body mass or the acutely ill. [email or web address] Blood specimen (specimen) 02/11/2019 3:07 AM EDT 02/11/2019 3:26 AM EDT Narrative Resulting Agency Comment Spec In Lab Karen Nixon MD CHEMISTRY ORDERABLE S Performing Organization Address [facility]/[place]UST Co de Phone Number [facility] [place] [address] * (ABNORMAL) Sonicated Tissue/Implant Culture Prosthetic Joint (02/10/2019 2:32 PM EDT) Sonicated Tissue/Implan t Culture Greater than 100 cfu/10 ml sonicate Staphylococcus lugdunensis Susceptibilities previously reported (A) [facility] Organism Staphylococcus lugdunensis(A) [facility] Prosthetic joint sample (specimen) 02/10/2019 2:32 PM EDT 02/10/2019 2:42 PM EDT Comment:LEFT PROSTHETIC KNEE JOINT Narrative Resulting Agency Comment Spec In Lab Karen Nixon MD MICROBIOLOGY - GENE RAL ORDERABLES Performing Organization Address [facility]/[place] Co de Phone Number [facility] [place] [address] * Anaerobic Culture (02/10/2019 12:53 PM EDT) Anaerobic Culture No anaerobic organisms isolated [facility] Joint fluid specimen (specimen) STRUCTURE OF LEFT KNEE REGION / Unknown 02/10/2019 12:53 PM EDT 02/10/2019 2:04 PM EDT Comment:LEFT POSTERIOR SYNOV IUM Narrative Resulting Agency Comment Spec In Lab Rod Valdez MD MICROBIOLOGY - GENER AL ORDERABLES Performing Organization Address [facility]/ZIP Co de Phone Number [facility] [place] [address] * (ABNORMAL) Joint Culture (02/10/2019 12:53 PM EDT) Joint Culture Few Staphylococcus lugdunensis Susceptibilities previously reported (A) [facility] Gram Stain Cytocentrifuge Gram Stain performed Neutrophils seen No microorganisms seen. (A) [facility] Organism Staphylococcus lugdunensis(A) [facility] Joint fluid specimen (specimen) STRUCTURE OF LEFT KNEE REGION / Unknown 02/10/2019 12:53 PM EDT 02/10/2019 2:04 PM EDT Comment:LEFT POSTERIOR SYNOV IUM Narrative Resulting Agency Comment Spec In Lab Rod Valdez MD MICROBIOLOGY - GENER AL ORDERABLES Performing Organization Address City/[facility]/[place] Co de Phone Number [facility] [place] [address] * Anaerobic Culture (02/10/2019 12:53 PM EDT) Anaerobic Culture No anaerobic organisms isolated [facility] Joint fluid specimen (specimen) STRUCTURE OF LEFT KNEE REGION / Unknown 02/10/2019 12:53 PM EDT 02/10/2019 2:05 PM EDT Comment:LEFT TIBIAL TRAY Narrative Resulting Agency Comment Spec In Lab Rod Valdez MD MICROBIOLOGY - GENER AL ORDERABLES Performing Organization Address [facility]/[place] Co de Phone Number [facility] [place] [address] * (ABNORMAL) Joint Culture (02/10/2019 12:53 PM EDT) Joint Culture Moderate Staphylococcus lugdunensis(A) [facility] Gram Stain Cytocentrifuge Gram Stain performed Neutrophils seen Moderate Gram Positive Cocci in clusters seen Results called to and read back by Kenneth De Leon ??02/10/19 15:08:50 (A) [facility] Organism Staphylococcus lugdunensis(A) [facility] Organism Gram Positive Cocci in clusters(A) [facility] Joint fluid specimen (specimen) STRUCTURE OF LEFT KNEE REGION / Unknown 02/10/2019 12:53 PM EDT 02/10/2019 2:05 PM EDT Comment:LEFT TIBIAL TRAY Narrative Resulting Agency Comment Spec In Lab Organism Antibiotic Method Susceptibility Staphylococcus lugdunensis Clindamycin RICHEY-CHE SUSCEPTIBILITY METHOD Sensitive Staphylococcus lugdunensis Erythromycin RICHEY-CHE SUSCEPTIBILITY METHOD Sensitive Staphylococcus lugdunensis Gentamicin RICHEY-CHE SUSCEPTIBILITY METHOD Sensitive Comment:Gentamicin i s not appropriate for [place]-therapy. Staphylococcus lugdunensis Oxacillin RICHEY-CHE SUSCEPTIBILITY METHOD Sensitive Staphylococcus lugdunensis Tetracycline RICHEY-CHE SUSCEPTIBILITY METHOD Sensitive Staphylococcus lugdunensis Trimethoprim/Sulfa RICHEY-CHE SUSCEPTIBILITY METHOD Resistant Staphylococcus lugdunensis Linezolid RICHEY-CHE SUSCEPTIBILITY METHOD Sensitive Staphylococcus lugdunensis Levofloxacin RICHEY-CHE SUSCEPTIBILITY METHOD Sensitive Staphylococcus lugdunensis Ceftriaxone MINIMUM INHIBITORY CONCENTRATION 1 Rod Valdez MD MICROBIOLOGY - GENER AL ORDERABLES Performing Organization Address [facility]/[place] Co de Phone Number [facility] [place] [address] * Anaerobic Culture (02/10/2019 12:53 PM EDT) Anaerobic Culture No anaerobic organisms isolated [facility] Joint fluid specimen (specimen) STRUCTURE OF LEFT KNEE REGION / Unknown 02/10/2019 12:53 PM EDT 02/10/2019 2:05 PM EDT Comment:LEFT KNEE FLUID Narrative Resulting Agency Comment Spec In Lab Rod Valdez MD MICROBIOLOGY - GENER AL ORDERABLES Performing Organization Address [facility]/ZIP Co de Phone Number [facility] [place] [address] * (ABNORMAL) Joint Culture (02/10/2019 12:53 PM EDT) Joint Culture Rare Staphylococcus lugdunensis Susceptibilities previously reported (A) [facility] Gram Stain Cytocentrifuge Gram Stain performed Neutrophils seen No microorganisms seen. (A) [facility] Organism Staphylococcus lugdunensis(A) [facility] Joint fluid specimen (specimen) STRUCTURE OF LEFT KNEE REGION / Unknown 02/10/2019 12:53 PM EDT 02/10/2019 2:05 PM EDT Comment:LEFT KNEE FLUID Narrative Resulting Agency Comment Spec In Lab Rod Valdez MD MICROBIOLOGY - GENER AL ORDERABLES [facility] [place] [address] * Cell Count Body Fluid Knee Joint Fluid (02/10/2019 12:13 PM EDT) Body Fluid Source Knee Fl MA RY [facility] Color, Fld Red [facility] Appearance, Fld Cloudy [facility] WBC Count, Fld 38,759 /[facility] LABORATORY Comment: Guideline listed below apply to all body fluids. Differentials on BAL specimens are performed by the Cytology lab section. When Body Fluid WBC count is greater than Zero, a smear is made and scanned. All scan information is correlated with numeric results prior to being released to patients chart. Polymorphonuclear cells BF % 95 % [facility] Comment: Polymorphonuclear cell percent and absolute values may contain Neutrophils, Eosinophils, and Basophils. Body fluid smear will be scanned manually for concordance. Mononuclear cells BF % 5 % [facility] Comment: Mononuclear cell percent and absolute values may contain Lymphocytes and Monocytes. Body fluid smear will be scanned manually for concordance. Polymorphonuclear cells BF ABS 36,756 /[facility] LABORATORY Comment: Polymorphonuclear cell percent and absolute values may contain Neutrophils, Eosinophils, and Basophils. Body fluid smear will be scanned manually for concordance. Mononuclear cells BF ABS 2,003 /[facility] LABORATORY Comment: Mononuclear cell percent and absolute values may contain Lymphocytes and Monocytes. Body fluid smear will be scanned manually for concordance. Knee joint synovial fluid (specimen) 02/10/2019 12:13 PM EDT 02/10/2019 12:19 PM EDT Narrative Resulting Agency Comment Spec In Lab Karen Nxion MD BODY FLUIDS AND STO OLS ORDERABLES [facility] [place] [address] * Blood culture (02/10/2019 9:20 AM EDT) Blood Culture No growth at 5 days. [facility] Blood specimen (specimen) 02/10/2019 9:20 AM EDT 02/10/2019 10:08 AM EDT Narrative Resulting Agency Comment Spec In Lab Reza Gutierrez MD MICROBIOLOGY - BLOOD ORDERABLES [facility] [place] [address] * ABORH Recheck Status (02/10/2019 8:32 AM EDT) ABORH Recheck Order Order Placed [facility] ABORH Type Recheck Complete [facility] Blood specimen (specimen) 02/10/2019 8:32 AM EDT 02/10/2019 9:02 AM EDT Narrative Resulting Agency Comment Spec In Lab Alison Bueno MD BLOOD BANK LAB ORDER DEVAN Performing Organization Address City/[facility]/ZIP Co de Phone Number [facility] [place] [address] * Antibody screen (02/10/2019 8:32 AM EDT) Ab Screen Interp Negative [facility] Expires at [id number] on: 02/13/2019 [facility] Blood specimen (specimen) 02/10/2019 8:32 AM EDT 02/10/2019 9:02 AM EDT Narrative Resulting Agency Comment Spec In Lab Alison Bueno MD BLOOD BANK LAB ORDER DEVAN [facility] [place] [address] * ABO/Rh Typing (02/10/2019 8:32 AM EDT) ABORH Type A Pos [facility] Blood specimen (specimen) 02/10/2019 8:32 AM EDT 02/10/2019 9:02 AM EDT Narrative Resulting Agency Comment Spec In Lab Alison Bueno MD BLOOD BANK LAB ORDER DEVAN Performing Organization Address City/[facility]/ZIP Co de Phone Number [facility] [place] [address] * Blood culture (02/10/2019 8:32 AM EDT) Blood Culture No growth at 5 days. [facility] Blood specimen (specimen) ANTECUBITAL REGION STRUCTURE / Unknown 02/10/2019 8:32 AM EDT 02/10/2019 9:06 AM EDT Narrative Resulting Agency Comment Spec In Lab Reza Gutierrez MD MICROBIOLOGY - BLOOD ORDERABLES Performing Organization Address [facility]/ZIP Co de Phone Number [facility] [place] [address] * Anaerobic Culture (02/10/2019 5:58 AM EDT) Anaerobic Culture No anaerobic organisms isolated [facility] Joint fluid specimen (specimen) STRUCTURE OF LEFT KNEE REGION / Unknown 02/10/2019 5:58 AM EDT 02/10/2019 7:38 AM EDT Narrative Resulting Agency Comment Spec In Lab Ricky Lozoya MD MICROBIOLOGY - GENER AL ORDERABLES Performing Organization Address [facility]/ZIP Co de Phone Number [facility] [place] [address] * (ABNORMAL) Joint Culture (02/10/2019 5:58 AM EDT) Joint Culture Rare Staphylococcus lugdunensis Susceptibilities previously reported (A) [facility] Gram Stain Cytocentrifuge Gram Stain performed Many Neutrophils seen No microorganisms seen. (A) [facility] Organism Staphylococcus lugdunensis(A) [facility] Joint fluid specimen (specimen) STRUCTURE OF LEFT KNEE REGION / Unknown 02/10/2019 5:58 AM EDT 02/10/2019 6:12 AM EDT Narrative Resulting Agency Comment Spec In Lab Ricky Lozoya MD MICROBIOLOGY - GENER AL ORDERABLES [facility] [place] [address] * Crystal Exam Body Fluid Knee, Left (02/10/2019 5:58 AM EDT) Crystal BF Type Knee fluid Lt [facility] Crystal Exam, Fld None Seen [facility] Specimen from lower limb (specimen) 02/10/2019 5:58 AM EDT 02/10/2019 6:09 AM EDT Narrative Resulting Agency Comment Spec In Lab Reza Gutierrez MD BODY FLUIDS AND STOO LS ORDERABLES [facility] [place] [address] * Cell Count Body Fluid Knee, Left (02/10/2019 5:58 AM EDT) Body Fluid Source Knee, Left [facility] Color, Fld Bluewell [facility] Appearance, Fld Cloudy [facility] WBC Count, Fld 27,738 /[facility] LABORATORY Comment: Guideline listed below apply to all body fluids. Differentials on BAL specimens are performed by the Cytology lab section. When Body Fluid WBC count is greater than Zero, a smear is made and scanned. All scan information is correlated with numeric results prior to being released to patients chart. Polymorphonuclear cells BF % 94 % [facility] Comment: Polymorphonuclear cell percent and absolute values may contain Neutrophils, Eosinophils, and Basophils. Body fluid smear will be scanned manually for concordance. Mononuclear cells BF % 6 % [facility] Comment: Mononuclear cell percent and absolute values may contain Lymphocytes and Monocytes. Body fluid smear will be scanned manually for concordance. Polymorphonuclear cells BF ABS 25,939 /[facility] LABORATORY Comment: Polymorphonuclear cell percent and absolute values may contain Neutrophils, Eosinophils, and Basophils. Body fluid smear will be scanned manually for concordance. Mononuclear cells BF ABS 1,799 /mcl [facility] Comment: Mononuclear cell percent and absolute values may contain Lymphocytes and Monocytes. Body fluid smear will be scanned manually for concordance. Specimen from lower limb (specimen) 02/10/2019 5:58 AM EDT 02/10/2019 6:09 AM EDT Narrative Resulting Agency Comment Spec In Lab Reza Gutierrez MD BODY FLUIDS AND STOO LS ORDERABLES [facility] [place] [address] * Gold Tube HOLD (02/10/2019 5:40 AM EDT) Gold Hold Sample in lab. [facility] Blood specimen (specimen) Venous Draw / Unknown 02/10/2019 5:40 AM EDT 02/10/2019 5:45 AM EDT Ricky Lozoya MD CHEMISTRY ORDERABLES [facility] [place] [address] * (ABNORMAL) Differential, Automated (02/10/2019 5:40 AM EDT) Neutrophil % 81.1 % [facility] Neutrophil Absolute 10.29(H) 1.70 - 6.10 x10(3)/mc L [facility] Lymph % 9.5 % [facility] Lymphocytes Abs 1.2 0.9 - 3.2 x10(3)/mc L [facility] Monocyte % 8.7 % [facility] Monocyte Abs 1.1(H) 0.3 - 0.9 x10(3)/mc L [facility] Eos % 0.0 % [facility] Eosinophils Abs 0.0 0.0 - 0.4 x10(3)/mc L [facility] Basophil % 0.4 % [facility] Baso Absolute 0.0 0.0 - 0.1 x10(3)/[facility] LABORATORY Immature Gran % 0.30 % [facility] Comment: Immature granulocytes(IG's)percentage and absolute count will include metamyelocytes, myelocytes, and promyelocytes. Blood smears from CBCs yielding IG's will be scanned manually for concordance. If this scan disagrees with the automated IG or if promyelocytes are noted, a manual differential will be performed. Immature Gran Absolute 0.04 0.00 - 0.04 x10(3)/[facility] LABORATORY Blood specimen (specimen) 02/10/2019 5:40 AM EDT 02/10/2019 5:45 AM EDT Narrative Resulting Agency Comment Spec In Lab Ricky Lozoya MD HEMATOLOGY ORDERABLE S [facility] [place] [address] * (ABNORMAL) Hemogram (02/10/2019 5:40 AM EDT) White Blood Cell 12.7(H) 4.0 - 9.5 x10(3)/[facility] LABORATORY Red Blood Cell 4.62 4.00 - 5.21 x10(6)/[facility] LABORATORY Hemoglobin 13.3 11.7 - 15.5 gm/dL [facility] Hematocrit 40.0 35.7 - 45.8 % [facility] Mean Cell Volume 86.6 82.6 - 94.4 fL [facility] Mean Cell Hemoglobin 28.8 27.1 - 32.0 pg [facility] Mean Cell Hemoglobin Concentration 33.3 31.7 - 35.0 gm/dL [facility] Platelet 268 145 - 357 x10(3)/[facility] LABORATORY RDW Standard Deviation 41.4 37.0 - 46.0 fL [facility] RDW coefficient of variation 13.2 11.5 - 14.1 % [facility] Mean Platelet Volume 9.6 7.6 - 12.9 [facility] LABORATORY NRBC% auto 0.0 % [facility] NRBC Absolute 0.000 0.000 - 0.000 x10(3)/mc L [facility] Blood specimen (specimen) 02/10/2019 5:40 AM EDT 02/10/2019 5:45 AM EDT Narrative Resulting Agency Comment Spec In Lab Ricky Lozoya MD HEMATOLOGY ORDERABLE S Performing Organization Address [facility]/[place]UST Co de Phone Number [facility] [place] [address] * (ABNORMAL) APTT (02/10/2019 5:40 AM EDT) Partial Thromboplastin Time 24(L) 25 - 37 sec [facility] Comment: The PTT is NOT appropriate for heparin monitoring. Use the Anti-Xa level for heparin monitoring (HEP UFH) or LMWH monitoring (HEP LMW). A PTT less than 37 seconds generally indicates adequate hemostasis. Blood specimen (specimen) 02/10/2019 5:40 AM EDT 02/10/2019 5:45 AM EDT Narrative Resulting Agency Comment Spec In Lab Reza Gutierrez MD HEMATOLOGY ORDERABLE S Performing Organization Address [facility]/[place] Co de Phone Number [facility] [place] [address] * (ABNORMAL) Prothrombin Time (02/10/2019 5:40 AM EDT) Prothrombin Time 12.6(H) 9.4 - 12.5 sec [facility] International Normalization Ratio 1.1 [facility] Comment: An INR <2.0 indicates [...] Lab Reza Gutierrez MD HEMATOLOGY ORDERABLE S [facility] [place] [address] * (ABNORMAL) Basic Metabolic Panel (non-fasting) (02/10/2019 5:40 AM EDT) Glucose 162 65 - 199 mg/dL [facility] Comment:Diabetes: >=200 mg/d L plus symptoms Blood Urea Nitrogen 17 8 - 18 mg/dL [facility] Creatinine 1.06 0.70 - 1.20 mg/dL [facility] Sodium 139 135 - 145 mmol/L [facility] Potassium 4.3 3.5 - 5.0 mmol/L [facility] Comment: Please note: ??Patients with WBC >100,000 may have falsely elevated Potassium levels. ??For accurate Potassium quantification in these patients send serum separator tube (gold top) for subsequent determinations. ??Contact the Clinical Chemistry Laboratory if there are any questions. Chloride 102 98 - 107 mmol/L [facility] Carbon Dioxide 24 22 - 31 mmol/L [facility] Anion Gap 13 5 - 15 mmol/L [facility] Calcium 9.4 8.5 - 10.5 mg/dL [facility] Est Glomerular Filtration Rate 59(L) >=60 mL/min/1. 73 m?? [facility] Comment: The eGFR was calculated using the CKD-EPI equation. As with all creatinine based estimates of kidney function, eGFR values calculated with the CKD-EPI equation are not accurate in patients with acute kidney failure, extremes of body mass or the acutely ill. [email or web address] eGFR 68 >=60 mL/min/1. 73 m?? [facility] Comment: The eGFR was calculated using the CKD-EPI equation. As with all creatinine based estimates of kidney function, eGFR values calculated with the CKD-EPI equation are not accurate in patients with acute kidney failure, extremes of body mass or the acutely ill. [email or web address] Blood specimen (specimen) 02/10/2019 5:40 AM EDT 02/10/2019 5:45 AM EDT Narrative Resulting Agency Comment Spec In Lab Reza Gutierrez MD CHEMISTRY ORDERABLES Performing Organization Address [facility]/ZIP Co de Phone Number [facility] [place] [address] * Sedimentation rate (02/10/2019 5:40 AM EDT) Sedimentation Rate Automated 11 0 - 20 mm/hr [facility] Blood specimen (specimen) 02/10/2019 5:40 AM EDT 02/10/2019 5:45 AM EDT Narrative Resulting Agency Comment Spec In Lab Reza Gutierrez MD HEMATOLOGY ORDERABLE S Performing Organization Address [facility]/[place]UST Co de Phone Number [facility] [place] [address] * (ABNORMAL) CRP, acute inflammation (02/10/2019 5:40 AM EDT) C-Reactive Protein 18.2(H) <=4.9 mg/L [facility] Blood specimen (specimen) 02/10/2019 5:40 AM EDT 02/10/2019 5:45 AM EDT Narrative Resulting Agency Comment Spec In Lab Reza Gutierrez MD CHEMISTRY ORDERABLES Performing Organization Address City/[facility]/ZIP Co de Phone Number [facility] [place] [address] * SCAN DOC: IMPLANTABLE DEVICES (02/10/2019 12:00 AM EDT) Narrative 02/10/2019 12:00 AM EDT Ordered by an unspecified provider. Scanning Provider MEDIA MGR SCAN EXT O RDR/RSLT * Film Library- Storage Only DX Knee (10/29/2017 12:00 AM EST) Narrative [facility] - 02/10/2019 2:36 AM EDT This exam is auto-finalizing. It's purpose is for storage only. Karen Nixon MD IMG FILM LIBRARY OR goDog FetchABLES Performing Organization Address [facility] de Phone Number [place], [place] * Film Library- Storage Only DX Knee (09/07/2017 12:00 AM EST) Narrative [facility] - 02/10/2019 2:35 AM EDT This exam is auto-finalizing. It's purpose is for storage only. Karen Nixon MD IM FILM LIBRARY OR DERABLES Performing Organization Address [facility] de Phone Number [place], [place] documented in this encounter Visit Diagnoses [...] Intravenous, EVERY 24 HOURS, First dose on [facility] 02/12/19 at 1915, Until Discontinued, Administer over [...] Starting on Paty 02/10/19 at 1421, Until 02/15/19 at 1613, Pain, Routine Given 02/14/2019 10:45 [...] To administer at 0800 and 2000 per case maker for home scheduling convenience)905 (Stopped - Provider: [...] 0813 (Given - Provider: Rae Hawkins RN) 08 (Not Given - Provider: Liliana Cisneros RN - Reason: Order parameters not met - Comment: BP 113/76. Systolic < 130) 0833 (Given - Provider: Liliana Cisneros RN - Comment: BP 133/83) multivitamin with minerals (THERA-M) tablet 1 tablet 1 tablet, Oral, DAILY, First dose on Thu02/10/19 at 1600, Until Discontinued, Routine 0813 (Given [...] (Recovery-Hospital Unit), Routine 0812 (Given - Provider: Rea Hawkins RN)210 (Given - Provider: Mita Suarez [...] Starting on Paty 02/10/19 at 1421, Until 02/15/19 at 1613, Pain, Routine 0227 (Given - Provider: Edwin Zimmerman, ODIN)1320 (Given - Provider: Daniel Oscar, ODIN)1748 (Given - Provider: Rae Hawkins RN)2224 (Given - Provider: Mita Suarez, ODIN) 1028 (Given - Provider: Ricky Foster)1749 (Given - Provider: Liliana Cisneros, ODIN)2245 (Given - Provider: Elvia Flores, ODIN) sodium chloride 0.9 % flush 5-20 mL 5-20 mL, Intravenous, EVERY 1 MIN PRN, Starting on Paty 02/10/19 at 1538, Until Tu02/15/19 at 1613, flush, Flush pertains to all [...] Unit) documented in this encounter Care Teams Lighthouse Keeper Relationship Specialty Start Date End Date Sari Hay MD [facility] [address] [place] [address] PCP - General 05/21/11 documented as of this encounter
--- OUTSIDE RECORDS SUMMARY | 2024-05-09 04:27 | XMS_ITS | Encounter Summary ---
Author Organization [facility] [place] [address] Care Team Providers Care Cloth Brushing And Sueding Supervisor Name Role Phone Sari Hay MD Primary Care Provider [phone] Encounter Details Date Type Department Care Team (Late st Contact Info) Description 09/27/2015 External Results [place] [address] Nelly Mendez APRN [address] [place] [address] Social History Tobacco Use Types Packs/Day Years [...] on filedocumented in this encounter Care Teams Cloth Brushing And Sueding Supervisor Relationship Specialty Start Date End Date Sari Hay MD [facility] [address] [place] [address] PCP - General 05/21/11 documented as of this encounter
--- OUTSIDE RECORDS SUMMARY | 2024-05-09 04:27 | XMS_ITS | Encounter Summary ---
Author Organization [facility] Address [facility] [place] [address] Care Team Providers Care Clerk Operator Name Role Phone Sari Hay MD Primary Care Provider [phone] Reason for Referral * Diagnostic Test (Routine) - Closed Specialty Diagnoses / Procedures Referred By Emmanuel cisneros Referred To Contact Radiology Diagnoses Hammer toe of left foot S/P orthopedic surgery, follow-up exam Procedures MRI Foot WO Contrast Left Stanley Koo MD [facility] [place] [address] [place] [address] Referral ID Status Reason Start Date Expiration Date V isits Requested Visits Authorized [id number] Closed Specialty Service Requested 01/24/2016 03/23/2016 1 1 Encounter Details Date Type Department Care Team (Late st Contact Info) Description 01/24/2016 Orders [place] [address] Stanley Koo MD [facility] [place] [address] Hammer toe of left foot; [...] MR images of the forefoot were acquired. [id number] images were done density weighted images and [...] First metatarsal-phalangeal joint osteoarthritis. Stanley Koo MD [facility] [place] [place] MRI ORDERABLES documented in this encounter Visit Diagnoses Diagnosis Hammer toe of left foot S/P orthopedic surgery, follow-up exam Follow-up examination, following other surgery Hammer toe of left foot S/P orthopedic surgery, follow-up exam Follow-up examination, following other surgery documented in this encounter Care Teams Clerk Operator Relationship Specialty Start Date End Date Sari Hay MD [facility] [address]ENNA [address] [place] [id number] PCP - General 05/21/11 documented as of this encounter
--- OUTSIDE RECORDS SUMMARY | 2024-05-09 04:27 | XMS_ITS | Encounter Summary ---
Author Organization [facility] Address [facility] [place] [address] Care Team Providers Care Student Worker Name Role Phone Sari Hay MD Primary Care Provider [phone] Reason for Visit * Reason Comments Follow Up Surgery Left Foot Osteotomy DOS 10/01/15 Encounter Details Date Type Department Care Team (Late st Contact Info) Description 11/08/2015 3:15 PM EST Office [place] [address] [facility] [place] [address] S/P orthopedic surgery, follow-up exam Social History [...] surgery documented in this encounter Care Teams Student Worker Relationship Specialty Start Date End Date Sari Hay MD [address] [place] [address] PCP - General 05/21/11 documented as of this encounter
--- OUTSIDE RECORDS SUMMARY | 2024-05-09 04:27 | XMS_ITS | Encounter Summary ---
Author Organization [facility] Address [facility] [place] [address] Care Team Providers Care Edge Gluer Name Role Phone Sari Hay MD Primary Care Provider [phone] Encounter Details Date Type Department Care Team (Late st Contact Info) Description 09/07/2017 Ancillary Procedure [place] [address] Social History Tobacco Use Types Packs/Day Years [...] Nixon MD IMG FILM LIBRARY OR DERABLES [place], [place] documented in this encounter Visit Diagnoses Not on filedocumented in this encounter Care Teams Edge Gluer Relationship Specialty Start Date End Date Sari Hay MD [facility] [address] [place] [address] PCP - General 05/21/11 documented as of this encounter
--- OUTSIDE RECORDS SUMMARY | 2024-05-09 04:27 | XMS_ITS | Encounter Summary ---
Author Organization [facility] Address [facility] [place] [address] Care Team Providers Care Hand Meat Salter Name Role Phone Sari Pacheco MD Primary Care Provider [phone] Reason for Visit * Auth/Cert - Closed [...] Expiration Date Visits Re quested Visits Authorized [id number] Closed 1 1 Encounter Details Date Type Department Care Team (Late st Contact Info) Description 10/01/2015 7:30 AM EST - 10/01/2015 8:45 AM EST Surgery Outpatient [place] [id number] Stanley Koo MD [facility] DR [place] [address] OSTEOTOMY, METATARSAL, OTHER THAN FIRST, EACH (WRVU [...] to facilitate abowel movement. If needed an yxck-asa-vwhzpbt medication, miralax can also be used to [...] 10/11/2015 9:30 AM Stanley Koo MD [facility] [address] [place] [address] Contact Information: Your orthopaedic surgeon:Stanley Koo MD: Sports: [phone] If it is after 5:00PM on a weekday or a weekend and it is of an urgent nature please call [phone] and ask for the on-call orthopaedic resident. Your Primary Care Physician: SARI PACHECO MD [phone] General Anesthesia Discharge Instructions Go home and [...] closest emergency room or call the hospital drill press operator numerical control at [phone] and ask for physician distribution associate covering for your physician. Questions or problems after 5pm or on a weekend: Call the [facility] drill press operator numerical control at and ask for the physician distribution associate covering for your doctor. Lower Extremity Nerve [...] after hours and ask for the anesthesiologist distribution associate. [facility] Learning About Deep Vein [...] more? Visit our health information library at [email or web address]. You can alsoview health information on [employer], your personal patient account. Log in or sign up today. Enter X941 in the search box to learn more about Learning About Deep Vein Thrombosis. ?? [id number] [employer]. Care instructions adapted under license by [employer] [facility]. This care instruction is for use with your licensed healthcare professional. If you have questions about a medical condition or this instruction, always ask your healthcare professional. [employer] disclaims any warranty or liability for your use of this information. Content Version: 8.9.46504; Last Revised: November 20, 2009 documented in [...] Operative Note Patient Name: Sissy Eugene : [id number] MR#: [id number] Case Date: 10/01/2015 Surgeon: Surgeon(s) and Role: [...] then fastening it in place with two xpzavg-pd-bgust FiberWire stitches. The phalanx was found to [...] Operative Note Patient Name: Sissy Eugene : [id number] MR#: [id number] Case Date: 10/01/2015 Surgeon: Surgeon(s) and Role: [...] Associated Diagnoses Date /Time FILM LIBRARY-FLUORO OR L-DDT-[id number] ONL Imaging Routine 10/01/2015 8:1 9 AM EST Scheduled Orders Name Type Priority Associated Diagnoses Orde r Schedule FILM LIBRARY-FLUORO OR F-[id number]-TVHLBRP ONL Imaging Routine Once PRN (f or [...] at 0622, Until Thu10/01/15 at 0734, MAN [place]: cabinet override 0734 (Given - Provid er: Tiera Pope CRNA) documented in this encounter Care Teams Hand Meat Salter Relationship Specialty Start Date End Date Sari Pacheco MD [facility] [address] [place] [address] PCP - General 05/21/11 documented as of this encounter
--- OUTSIDE RECORDS SUMMARY | 2024-05-09 04:27 | XMS_ITS | Encounter Summary ---
[place] [address] Care Team Providers Care Travel Services Professional Name Role Phone Sari Hay MD Primary Care Provider [phone] Encounter Details Date Type Department Care Team (Late st Contact Info) Description 01/24/2016 Orders [place] [address] Yessi Freedman Social History Tobacco Use Types [...] on filedocumented in this encounter Care Teams Travel Services Professional Relationship Specialty Start Date End Date Sari Hay MD [address] [place], [place] [phone] PCP - General 05/21/11 documented as of this encounter
--- OUTSIDE RECORDS SUMMARY | 2024-05-09 04:27 | XMS_ITS | Encounter Summary ---
Author Organization [facility] Address [facility] [place] [address] Care Team Providers Care Business Professor Name Role Phone Sari Hay MD Primary Care Provider [phone] Reason for Visit * Reason Onset Date Comments Appointment 02/11/2016 Encounter Details Date Type Department Care Team (Late st Contact Info) Description 02/11/2016 Telephone Orthopaedics [place] [address] Stanley Koo MD [facility] [place] [address] Appointment Social History Tobacco Use Types Packs/Day [...] Best number to reach the patient # [phone] I will forward your message to the team and someone will follow up with you within 48 hours. For: Celia Diamond, and Dragan, follow procedure. For all other teams: send this message to the nurse. documented in this encounter Plan of Treatment Not on file documented as of this encounter Visit Diagnoses Not on filedocumented in this encounter Care Teams Business Professor Relationship Specialty Start Date End Date Sari Hay MD [address] [place] [address] PCP - General 05/21/11 documented as of this encounter
--- OUTSIDE RECORDS SUMMARY | 2024-05-09 04:27 | XMS_ITS | Encounter Summary ---
Author Organization [facility] Address [facility] [place] [address] Care Team Providers Care Director Biomedical Engineering Name Role Phone Sari Hay MD Primary Care Provider [phone] Encounter Details Date Type Department Care Team (Late st Contact Info) Description 10/19/2015 Orders [place] [address] Stanley Koo MD [facility] DR ORTHOPAED[place] [address] Hammer toe of left foot; S/P orthopedic [...] surgery documented in this encounter Care Teams Director Biomedical Engineering Relationship Specialty Start Date End Date Sari Hay MD [address] [place] [address] PCP - General 05/21/11 documented as of this encounter
--- OUTSIDE RECORDS SUMMARY | 2024-05-09 04:27 | XMS_ITS | Encounter Summary ---
Author Organization [facility] Address [facility] [place] [address] Care Team Providers Care Crewman Armoured Personnel Carrier [id number] Name Role Phone Sari Hay MD Primary Care Provider [phone] Encounter Details Date Type Department Care Team (Late st Contact Info) Description 10/11/2015 Orders Only [place] [address] Stanley Koo MD [facility] [place] [address] Hammer toe of left foot Social History [...] foot documented in this encounter Care Teams Crewman Armoured Personnel Carrier M113 Relationship Specialty Start Date End Date Sari Hay MD [address] [place] [address] PCP - General 05/21/11 documented as of this encounter
--- OUTSIDE RECORDS SUMMARY | 2024-05-09 04:27 | XMS_ITS | Encounter Summary ---
Author Organization [facility] Address [facility] [place] [address] Care Team Providers Care Monomer Recovery Operator Name Role Phone Sari Hay MD Primary Care Provider Reason for Visit * Reason Comments Follow Up Surgery Left foot osetotomy DOS 10/01/15 Encounter Details Date Type Department Care Team (Late st Contact Info) Description 01/24/2016 9:30 AM EDT Office [place] [address] Stanley Koo MD [facility] [place] [address] S/P orthopedic surgery, follow-up exam Social History [...] surgery documented in this encounter Care Teams Monomer Recovery Operator Relationship Specialty Start Date End Date Sari Hay MD [facility] [address] [place] [id number] PCP - General 05/21/11 documented as of this encounter
--- OUTSIDE RECORDS SUMMARY | 2024-05-09 04:27 | XMS_ITS | Encounter Summary ---
Author Organization [facility] Address [facility] [place] [address] Care Team Providers Care Home Therapy Teacher Name Role Phone Sari Hay MD Primary Care Provider [phone] Encounter Details Date Type Department Care Team (Late st Contact Info) Description 10/29/2017 Ancillary Procedure [place] [address] Social History Tobacco Use Types Packs/Day Years [...] Nixon MD IMG FILM LIBRARY OR DERABLES [place], [place] documented in this encounter Visit Diagnoses Not on filedocumented in this encounter Care Teams Home Therapy Teacher Relationship Specialty Start Date End Date Sari Hay MD [facility] [address] [place] [address] PCP - General 05/21/11 documented as of this encounter
--- OUTSIDE RECORDS SUMMARY | 2024-05-09 04:27 | XMS_ITS | Encounter Summary ---
Author Organization [facility] Address [facility] [place] [address] Care Team Providers Care National Van Owner Operator Name Role Phone Sari Hay MD Primary Care Provider [phone] Encounter Details Date Type Department Care Team (Latest Contact Info) Description 11/08/2015 3:25 PM EST - 11/08/2015 11:59 PM [facility] Hospital Encounter XRay at [address] [place] [address] Stanley Koo MD [facility] [place] [address] S/P orthopedic surgery, follow-up exam Discharge Disposition: [...] surgery documented in this encounter Care Teams National Van Owner Operator Relationship Specialty Start Date End Date Sari Hay MD [facility] [address] [place] [address] PCP - General 05/21/11 documented as of this encounter
--- OUTSIDE RECORDS SUMMARY | 2024-05-09 04:28 | XMS_ITS | Referral Summary ---
Author Organization [facility] Address [address] [place] [address] Care Team Providers Care Router Operator Pin Name Role Phone Sari Hay MD Primary Care Provider [phone] Social History Tobacco Use Types Packs/Day Years Used Date Smoking Tobacco: Never Assessed Interpersonal Safety Answer Date Record ed Physically Hurt Never 05/06/2020 Verbally Threaten Not on file 05/06/2020 Sex and Gender Information Value Date Recorded Sex Assigned at Not on file Gender Identity Not on file Sexual Orientation Not on file Plan of Treatment Not on file Care Teams Router Operator Pin Relationship Specialty Start Date End Date Sari Hay MD [address] [place] [phone] PCP - General 10/24/16
--- OUTSIDE RECORDS SUMMARY | 2024-05-09 04:28 | XMS_ITS | Encounter Summary ---
Author Organization [facility] Address [address] [place] [address] Care Team Providers Care Residential Substance Abuse Counselor Name Role Phone Sari Hay MD Primary Care Provider Encounter Details Date Type Department Care Team (Late st Contact Info) Description 10/01/[address] [facility] Pathology & Laboratory Medicine - [address] [address] Outr Resulting Lab, Provider Social History Tobacco [...] Outr Resulting Lab MICROBIOLOGY - GENERAL ORDERABLES [facility] [address] [place] [address] * COVID-19 TESTING (09/30/2021 15:35 EST) COVID-19 rt-PCR Result Negative Negative 10/02/2021 15:25 EST [facility] Comment: This test has [...] developed and its performance characteristics determined by [facility]. It has not been cleared or approved [...] testing. This test is based on the [facility] COVID-19 Emergency Use Authorization (EUA) assay, with minor modification as defined by the FDA Performed on the Zumbox 7 Pro RT-PCR System. Performing Lab [facility] Lab 10/02/2021 15:25 EST [facility] Swab 09/30/2021 15:3 5 EST 10/01/2021 17:37 EST Provider Outr Resulting Lab MICROBIOLOGY - GENERAL ORDERABLES [facility] [address] [place] [address] documented in this encounter Visit Diagnoses Not on filedocumented in this encounter Care Teams Residential Substance Abuse Counselor Relationship Specialty Start Date End Date Sari Hay MD [address] [place] [phone] PCP - General 10/24/16 documented as of this encounter
--- OUTSIDE RECORDS SUMMARY | 2024-05-09 04:28 | XMS_ITS | Encounter Summary ---
Author Organization [facility] Address [address] [place] [address] Care Team Providers Care Compressor House Operator Name Role Phone Sari Hay MD Primary Care Provider [phone] Encounter Details Date Type Department Care Team (Latest Contact Info) Description 08/25/2017 18:38 EST - 08/25/2017 23:59 EST Hospital Encounter [address] [address] Unknown, Provider, Discharge Disposition: Home or Self Care Social History Tobacco Use Types Packs/Day Years Used Date Smoking Tobacco: Never Assessed Sex and Gender Information Value Date Recorded Sex Assigned at Not on file Gender Identity Not on file Sexual Orientation Not on file documented as of this encounter Discharge Disposition Disposition Code Departure Means Destination Home or Self Half-Way documented in this encounter Plan of Treatment Not on file documented as of this encounter Visit Diagnoses Not on filedocumented in this encounter Care Teams Compressor House Operator Relationship Specialty Start Date End Date Sari Hay MD [address] [place] [phone] PCP - General 10/24/16 documented as of this encounter
--- OUTSIDE RECORDS SUMMARY | 2024-05-09 04:28 | XMS_ITS | Encounter Summary ---
Author Organization [facility] Address [facility] [place] [address] Care Team Providers Care Right Of Way Maintenance Supervisor Name Role Phone Sari Hay MD Primary Care Provider [phone] Reason for Referral * Surgical (Routine) - Closed Specialty Diagnoses / Procedures Referred By Emmanuel t Referred To Contact Orthopaedics Diagnoses Hammer toe of left foot Procedures TENDON TRANSFER, ANKLE, SUPERFICIAL Stanley Koo MD [facility] [place] [address] [facility] [address] Referral ID Status Reason Start Date Expiration Date V isits Requested Visits Authorized [id number] Closed Specialty Service Requested 07/18/2015 07/17/2016 1 1 * Surgical (Routine) - Closed Specialty Diagnoses / Procedures Referred By Contbucky t Referred To Contact Orthopaedics Diagnoses Hammer toe of left foot Procedures OSTEOTOMY, METATARSAL, OTHER THAN FIRST, EACH Stanley Koo MD [facility] [place] [address] [facility] [address] [place] [phone] Referral ID Status Reason Start Date Expiration Date V isits Requested Visits Authorized [id number] Closed Specialty Service Requested 07/18/2015 07/17/2016 1 1 Reason for Visit * Reason Comments Left Foot Pain Encounter Details Date Type Department Care Team (Late st Contact Info) Description 07/18/2015 3:00 PM EDT Office [place] [address] Stanley Koo MD [facility] [place] [address] Hammer toe of left foot Social History [...] for hammertoe repair by Dr. Frias in [facility] on 10/04/2014. Unfortunately, she has continued symptoms in that region even following the surgery. She has been treated by Dereck Nieto, physical therapist in that area unsuccessfully. She has used an wdof-lfo-evpxgth orthotics also, this has only been minimally [...] the second. Radiographs were taken at the [facility]. They demonstrate a well-aligned great toe with [...] foot documented in this encounter Care Teams Right Of Way Maintenance Supervisor Relationship Specialty Start Date End Date Sari Hay MD [facility] [address] [place] [address] PCP - General 05/21/11 documented as of this encounter
--- OUTSIDE RECORDS SUMMARY | 2024-05-09 04:28 | XMS_ITS | Encounter Summary ---
Author Organization [facility] [place] [address] Care Team Providers Care Sanitary Inspector Name Role Phone Sari Hay MD Primary Care Provider [phone] Encounter Details Date Type Department Care Team (Late st Contact Info) Description 05/19/2011 External Results [place] [address] Provider, Scanning Social History Tobacco Use Types [...] on filedocumented in this encounter Care Teams Sanitary Inspector Relationship Specialty Start Date End Date Sari Hay MD [address] [place] [address] PCP - General 05/21/11 documented as of this encounter
--- OUTSIDE RECORDS SUMMARY | 2024-05-09 04:28 | XMS_ITS | Encounter Summary ---
Author Organization [facility] Address [facility] [place] [address] Care Team Providers Care Trolley Car Operator Name Role Phone Sari Hay MD Primary Care Provider [phone] Encounter Details Date Type Department Care Team (Late st Contact Info) Description 05/20/2011 Orders Only [address] [place] [address] Lisa Rinaldi MD [facility] [place] [address] Abnormal mammogram, unspecified (Primary Dx) Social History [...] imaging of the Right breast 05/13/11 from [facility]. Please see that report. ?? FINDINGS: [...] diagnostic imaging ofthe Right breast 05/13/11 from [facility]. Please see that report. FINDINGS: The [...] unspecified documented in this encounter Care Teams Trolley Car Operator Relationship Specialty Start Date End Date Sari Hay MD [address] [place] [address] PCP - General 05/21/11 documented as of this encounter
--- OUTSIDE RECORDS SUMMARY | 2024-05-09 04:28 | XMS_ITS | Encounter Summary ---
Author Organization [facility] Address [facility] [place] [address] Care Team Providers Care Real Estate Intern Name Role Phone Sari Hay MD Primary Care Provider [phone] Encounter Details Date Type Department Care Team (Late st Contact Info) Description 05/21/2011 Orders Only [address] [address] Erika Petersen MD [facility] [place] [address] Abnormal ultrasound of breast (Primary Dx) Social [...] 8:35 AM EDT Addendum Begins Accession number [id number] is included in this study. ?? Addendum Ends Addendum on 05/26/2011 11:07 AM EDT Addendum Begins Accession number [id number] is included in this study. ?? Addendum [...] the procedure without a resident. Home phone: [phone] Cell phone: [phone] Narrative 05/23/2011 9:50 AM EDT ULTRASOUND GUIDED [...] 6mm mass in the lower, outer quadrant [id number], 6cm from the nipple. 12-gauge Atec US [...] the procedure without a resident. Home phone: [phone] Cell phone: [phone] Erika Petersen MD IMG MAMMO ORDERABLES documented in this encounter Visit Diagnoses Diagnosis Abnormal ultrasound of breast- Primary Other (abnormal) findings on radiological examination of breast Abnormal ultrasound of breast Other (abnormal) findings on radiological examination of breast documented in this encounter Care Teams Real Estate Intern Relationship Specialty Start Date End Date Sari Hay MD [address] [place] [address] PCP - General 05/21/11 documented as of this encounter
--- OUTSIDE RECORDS SUMMARY | 2024-05-09 04:28 | XMS_ITS | Encounter Summary ---
Author Organization [facility] Address [address] [place] [address] Care Team Providers Care Senior Product Development Engineer Name Role Phone Sari Hay MD Primary Care Provider [phone] Encounter Details Date Type Department Care Team (Late st Contact Info) Description 08/25/2017 Results Only [facility] [[email or web address]] [phone] Roslyn Sky, KAMLA [address] [place] [address] Social History Tobacco Use Types [...] ? SISSY EUGENE ? Accession #: ? [id number] ? : ? 1965 (Age: 51) ??F ? Collect Date: ? 08/25/2017 ? Location: ? [facility] ? Receive Date: ? 08/26/2017 ? Provider: MAN MICHEL MD Copy to: ROSLYN SKY JUKE BOX SERVICER ? Final Pathologic Diagnosis: SKIN OF LEG, [...] the lesion. ??A Factor XIII A (AC-1A1, [place]) stain is positive within the spindle cell infiltrate. ??Stains are negative for SOX-10 (EP268, [employer]) and P40 (BC28, [place]) helping to rule out a melanocytic and [...] performance characteristics have been determined by [facility]. ??The positive and negative controls worked appropriately. [...] thickness). There is a central ill defined doherty-brown macule (0.3 x 0.3 x 0.1 cm). The specimen is bisected and submitted entirely in 1. GANESH May (ASCP) 08/26/2017 9:57 AM End of Report [facility] 08/25/2017 9:25 EST 08/26/2017 9:25 EST Man Michel MD PATHOLOGY ORDERABLES Performing Organization Address City/State/[facility] Co de Phone Number [facility] [address] [place] [address] documented in this encounter Visit Diagnoses Not on filedocumented in this encounter Care Teams Senior Product Development Engineer Relationship Specialty Start Date End Date Sari Hay MD [address] [place] [phone] PCP - General 10/24/16 documented as of this encounter
--- OUTSIDE RECORDS SUMMARY | 2024-05-09 04:28 | XMS_ITS | Encounter Summary ---
Author Organization [facility] Address [facility] [place] [address] Care Team Providers Care Tnt Powder Worker Name Role Phone Sari Hay MD Primary Care Provider [phone] Encounter Details Date Type Department Care Team (Late st Contact Info) Description 06/02/2011 [place] [address] Norberto Thao MD [facility] [place] [address] Social History Tobacco Use Types Packs/Day Years [...] on filedocumented in this encounter Care Teams Tnt Powder Worker Relationship Specialty Start Date End Date Sari Hay MD [address] [place] [address] PCP - General 05/21/11 documented as of this encounter
--- OUTSIDE RECORDS SUMMARY | 2024-05-09 04:28 | XMS_ITS | Clinical Summary ---
Author Organization [facility] Address [address] [place] [address] Care Team Providers Care Manager Small Business Name Role Phone Sari Hay MD Primary Care Provider [phone] Social History Tobacco Use Types Packs/Day Years [...] - 1-dose 60+ series) 2023 Care Teams Manager Small Business Relationship Specialty Start Date End Date Sari Hay MD [address] [facility] [address] [place] [phone] PCP - General 10/24/16
--- OUTSIDE RECORDS SUMMARY | 2024-05-09 04:28 | XMS_ITS | Encounter Summary ---
Author Organization [facility] [address] Care Team Providers Care Toe Former Name Role Phone Sari Hay MD Primary Care Provider [phone] Encounter Details Date Type Department Care Team (Latest Contact Info) Description 06/02/2011 10:16 AM EDT - 06/02/2011 11:59 PM EDT Hospital Encounter [place] [address] Abnormal findings on diagnostic imaging of breast [...] 1:02 PM EDT) Surgical Pathology Report [id number] ? Location: 3S The signing pathologist has (i) examined the relevant preparation(s) for the specimen(s) and (ii) rendered or confirmed the diagnosis(es). . ?Pathology Surgical Pathology Final Report Clinical Information Specimen Submitted: A - Right breast Clinical History/Diagnosis: Focal asymmetry FCD/SCA Report to: Sari Hay MD [facility] [address] [place], [place] ??[address] Gross Description Labeled/Fixative: ? Right breast, formalin. [...] breast documented in this encounter Care Teams Toe Former Relationship Specialty Start Date End Date Sari Hay MD [address] [place] [address] PCP - General 05/21/11 documented as of this encounter
--- OUTSIDE RECORDS SUMMARY | 2024-05-09 04:28 | XMS_ITS | Encounter Summary ---
Author Organization [facility] Address [facility] [place] [address] Care Team Providers Care Senior Account Representative Name Role Phone Sari Hay MD Primary Care Provider [phone] Encounter Details Date Type Department Care Team (Late st Contact Info) Description 05/23/2011 Orders Only [address] [place] [address] Marj Reddy MD [facility] DI[place] [address] Abnormal findings on diagnostic imaging of breast [...] breast documented in this encounter Care Teams Senior Account Representative Relationship Specialty Start Date End Date Sari Hay MD [address] [place] [address] PCP - General 05/21/11 documented as of this encounter
--- OUTSIDE RECORDS SUMMARY | 2024-05-09 04:28 | XMS_ITS | Encounter Summary ---
Author Organization [facility] Address [address] [place] [address] Care Team Providers Care Engrosser Name Role Phone Unavailable Primary Care Provider Unavailabl e Encounter Details Date Type Department Care Team (Late st Contact Info) Description 09/09/2007 Results Only [facility] [address] [place] [address] Lina Reyes, EXPERIENCE DESIGN DIRECTOR [address] [facility] [place] [address] Social History Tobacco Use Types [...] ? SISSY EUGENE ? Accession #: ? [id number] : ? 1965 (Age: 41) ??F ?Collect Date: ? 09/09/2007 Location: ? [facility] ? Receive Date: ? 09/10/2007 Provider: ?LINA REYES EXPERIENCE DESIGN DIRECTOR Copy to: ? Specimen/Source: ?ThinPrep Pap Test, Cervix/Endocervix, processed on [employer] ThinPrep Imaging System, with manual evaluation Last [...] Reyes NP PATHOLOGY ORDERABLES [facility] [address] [place] [address] documented in this encounter Visit Diagnoses Not on filedocumented in this encounter
--- OUTSIDE RECORDS SUMMARY | 2024-05-09 04:28 | XMS_ITS | Encounter Summary ---
Author Organization [facility] [place] [address] Care Team Providers Care Venetian Blind Machine Operator Name Role Phone Sari Hay MD Primary Care Provider [phone] Encounter Details Date Type Department Care Team (Latest Contact Info) Description 06/02/2011 10:16 AM EDT - 06/02/2011 11:59 PM EDT Hospital En[place] [address] Abnormal findings on diagnostic imaging of breast [...] breast documented in this encounter Care Teams Venetian Blind Machine Operator Relationship Specialty Start Date End Date Sari Hay MD [facility] [address] [place] [address] PCP - General 05/21/11 documented as of this encounter
--- OUTSIDE RECORDS SUMMARY | 2024-05-09 04:28 | XMS_ITS | Encounter Summary ---
Author Organization [facility] [place] [address] Care Team Providers Care Photographic Developer And Printer Name Role Phone Sari Hay MD Primary Care Provider [phone] Encounter Details Date Type Department Care Team (Latest Contact Info) Description 05/21/2011 2:48 PM EDT - 05/21/2011 11:59 PM EDT Hospital [place] [address] CLINIC, Sari Barrera MD [facility] [address] [place] [address] Abnormal mammogram, unspecified Discharge Disposition: [...] imaging of the Right breast 05/13/11 from [facility]. Please see that report. ?? FINDINGS: [...] diagnostic imaging ofthe Right breast 05/13/11 from [facility]. Please see that report. FINDINGS: The [...] unspecified documented in this encounter Care Teams Photographic Developer And Printer Relationship Specialty Start Date End Date Sari Hay MD [address] [place] [address] PCP - General 05/21/11 documented as of this encounter
--- OUTSIDE RECORDS SUMMARY | 2024-05-09 04:28 | XMS_ITS | Encounter Summary ---
Author Organization [facility] [place] [address] Care Team Providers Care Custodial Officer Name Role Phone Sari Hay MD Primary Care Provider [phone] Encounter Details Date Type Department Care Team (Latest Contact Info) Description 05/28/2011 9:10 AM EDT - 05/28/2011 11:59 PM EDT Hospital En[place] [address] CLINIC, DR VYAS Abnormal ultrasound of breast [...] breast documented in this encounter Care Teams Custodial Officer Relationship Specialty Start Date End Date Sari Hay MD [address] [place] [address] PCP - General 05/21/11 documented as of this encounter
--- OUTSIDE RECORDS SUMMARY | 2024-05-09 04:28 | XMS_ITS | Encounter Summary ---
Author Organization [facility] Address [address] [place] [address] Care Team Providers Care Timber Skidder Name Role Phone Sari Hay MD Primary Care Provider [phone] Encounter Details Date Type Department Care Team (Latest Contact Info) Description 10/14/2022 Lab Requisition [facility] Pathology & Laboratory Medicine - [facility] [address] [place] [address] Alyx Bello, TAMIKA [address] [facility] 1 [place] [address] Encounter for general adult medical [...] Risk types, PCR Negative Negative 10/21/2022 18:53 [facility] Comment:No E6 or E7 mRNA is detected from HPV types 16,18,31,33,35,39,45,51,52,56,58,59,66, and 68 by harvester operator mediated amplification. Papanicolaou smear specimen (specimen) CERVIX UTERI STRUCTURE / Unknown 10/13/2022 13:45 EST 10/20/2022 11:15 EST Alyx Bello COMMISSIONING AGENT MICROBIOLOGY - GENER AL ORDERABLES [facility] [address] [place] [address] * PAP TEST (10/13/2022 13:45 EST) Specimens A. Cervix and/or Endocervix , ThinPrep Imaging System with Manual Evaluation 10/21/2022 18:53 [facility] Specimen Adequacy Satisfactory for Evaluation - assessment of transformation zone component not applicable ( e.g. atrophy, vaginal sample, hysterectomy) 10/21/2022 18:53 [facility] General Categorization Negative for intraepithelial lesion or malignancy 10/21/2022 18:53 [facility] Attestation . 10/21/2022 18:53 [facility] at 1853 Clinical History SEE BELOW 10/21/19 23 18:53 [facility] HPV The result for the Human Papillomavirus (HPV) Detection-High Risk Types is Negative. No E6 or E7 mRNA is detected from HPV types 16,18,31,33,35,39 ,45,51,52,56,58,5 9,66, and 68 by harvester operator mediated amplification.Lorie ting was performed on specimen [id number] and was resulted on 10/21/2022 1853 EST by JENNIFER, LAB INSTRUMENT RESULTS IN 10/21/2022 18:53 [facility] Performing Lab [facility] 10/21/2022 18:53 EST [facility] Scanned Images 10/21/2022 18:53 EST [facility] Papanicolaou smear specimen (specimen) CERVIX UTERI STRUCTURE / Unknown 10/13/2022 13:45 EST 10/14/2022 14:25 EST Alyx Bello COMMISSIONING AGENT PATHOLOGY ORDERABLES Performing Organization Address City/State/[facility] Co de Phone Number [facility] [address] [place] [address] documented in this encounter Visit Diagnoses Diagnosis Encounter for general adult medical examination without abnormal findings Unspecified general medical examination Encounter for screening for malignant neoplasm of cervix Screening for malignant neoplasm of the cervix Encounter for screening for human papillomavirus (HPV) Special screening examination for human papillomavirus (HPV) documented in this encounter Care Teams Timber Skidder Relationship Specialty Start Date End Date Sari Hay MD [address] [place] [address] PCP - General 10/24/16 documented as of this encounter
--- OUTSIDE RECORDS SUMMARY | 2024-05-09 04:28 | XMS_ITS | Encounter Summary ---
Author Organization [facility] Address [address] [place] [address] Care Team Providers Care Salvage Cutter Name Role Phone Unknown, Provider Primary Care Provider [phone] Encounter Details Date Type Department Care Team (Late st Contact Info) Description 05/21/2016 Results Only [facility] [place] [facility] [phone] Roslyn Sky, KAMLA [address] [place], [place] [id number] Social History Tobacco Use Types Packs/Day Years [...] ? SISSY EUGENE ? Accession #: ? [id number] ? : ? 1965 (Age: 50) ??F ?Collect Date: ? 05/21/2016 ? Location: ? [facility] ? Receive Date: ? 05/23/2016 ? Provider: ROSLYN SKY CLINICAL RN Copy to: ? Final Report SPECIMEN ADEQUACY ? Satisfactory for Evaluation - transformation zone component present GENERAL CATEGORIZATION ? Negative for Intraepithelial Lesion or Malignancy ?? Last Menstrual Period: 5 years ago Menstrual/Pregnanc y Status: ??Menopausal Specimen/Source: ??Pap Test, Cervix/Endocervix, ThinPrep Imaging System with manual evaluation Document reviewed and electronically signed by: ? Tatum Vidal, [facility](ASCP) ? Report ??Date: 05/29/2016 11:09 HPV with Pap Test ? Date Ordered: ? 05/29/2016 ? Status: ?? Signed Out ?Date Complete: ? 05/30/2016 ? By: ??System Interface ? Date Reported: ? 05/30/2016 ? Interpretation RESULT: Negative for HPV. No E6 or E7 mRNA is detected from HPV types 16,18,31,33,35, 39,45,51,52,56,58, 59,66, and 68 by senior peoplesoft developer mediated amplification. Comments Document reviewed and electronically signed by: ? System Interface ? Report date: 05/30/2016 By the signature above, the attending physician certifies that he/she has personally conducted a gross and/or microscopic examination of the described specimens and rendered or confirmed the above diagnosis. End of Report [facility] 05/21/2016 05/23/2016 Roslyn Sky NP PATHOLOGY ORDERABLES [facility] [address] [place] [phone] documented in this encounter Visit Diagnoses Not on filedocumented in this encounter Care Teams Salvage Cutter Relationship Specialty Start Date End Date Unknown, Provider, PCP - General 08/09/15 10/23/16 documented as of this encounter
--- OUTSIDE RECORDS SUMMARY | 2024-05-09 04:28 | XMS_ITS | Encounter Summary ---
Author Organization [facility] Address [facility] [place] [address] Care Team Providers Care Watch Manufacturing Supervisor Name Role Phone Sari Hay MD Primary Care Provider [phone] Encounter Details Date Type Department Care Team (Late st Contact Info) Description 05/22/2011 [place] [address] Marj Reddy MD [facility] [place] [address] Social History Tobacco Use Types Packs/Day Years [...] on filedocumented in this encounter Care Teams Watch Manufacturing Supervisor Relationship Specialty Start Date End Date Sari Hay MD [address] [place] [address] PCP - General 05/21/11 documented as of this encounter
--- OUTSIDE RECORDS SUMMARY | 2024-05-09 04:28 | XMS_ITS | Encounter Summary ---
Author Organization [facility] Address [facility] [place] [address] Care Team Providers Care Metal Dresser Name Role Phone Sari Hay MD Primary Care Provider Encounter Details Date Type Department Care Team (Late st Contact Info) Description 08/14/2011 Ancillary Procedure [place] [address] Sari Hay MD [facility] [address] [facility] [address] [place], [place] [id number] Social History Tobacco Use Types Packs/Day Years [...] Hay MD G FILM LIBRARY ORD ERABLES [place], [place] documented in this encounter Visit Diagnoses Not on filedocumented in this encounter Care Teams Metal Dresser Relationship Specialty Start Date End Date Sari Hay MD [address] [place] [address] PCP - General 05/21/11 documented as of this encounter
--- OUTSIDE RECORDS SUMMARY | 2024-05-09 04:28 | XMS_ITS | Encounter Summary ---
Author Organization [facility] [place] [address] Care Team Providers Care Ventilating Engineer Name Role Phone Sari Hay MD Primary Care Provider [phone] Encounter Details Date Type Department Care Team (Latest Contact Info) Description 05/22/2011 8:58 AM EDT - 05/22/2011 11:59 PM EDT Hospital En[place] [address] CLINIC, Sari Barrera MD [facility] [address] [place] [address] Abnormal ultrasound of breast Discharge [...] 10:44 AM EDT) Surgical Pathology Report [id number] ? Location: 3S The signing pathologist has (i) examined the relevant preparation(s) for the specimen(s) and (ii) rendered or confirmed the diagnosis(es). . ?Pathology Surgical Pathology Final Report Clinical Information Specimen Submitted: A - Right breast U/S bx, lesion 1. Clinical History/Diagnosis: New MMG mass. ??U/S - hypoechoic circumscribed Cluster cysts, DCIS, FCD, IDC Report to: Sari Hay MD [facility] [address] [place] [address] Gross Description Labeled/Fixative: ? Right breast lesion [...] 8:35 AM EDT Addendum Begins Accession number [id number] is included in this study. ?? Addendum Ends Addendum on 05/26/2011 11:07 AM EDT Addendum Begins Accession number [id number] is included in this study. ?? Addendum [...] the procedure without a resident. Home phone: [phone] Cell phone: [phone] Narrative 05/23/2011 9:50 AM EDT ULTRASOUND GUIDED BIOPSY OF THE LEFT BREAST ON 05/22/11: Informed consent was obtained, sterile technique and 1% lidocaine used for local anesthesia and ultrasound guidance used throughout the procedure. ?? Clinical indication: Left breast 6mm mass in the lower, outer quadrant at 0700, 6cm from the nipple. 12-gauge Atec US device 4 core biopsy specimens obtained. ?? [facility] Atec 13 (US) Cylinder marker clip was [...] 6mm mass in the lower, outer quadrant [id number], 6cm from the nipple. 12-gauge Atec US device 4 core biopsy specimens obtained. A [facility] Atec 13 (US) Cylinder marker clip was [...] the procedure without a resident. Home phone: [phone] Cell phone: [phone] Erika Petersen MD IMG MAMMO ORDERABLES documented in this encounter Visit Diagnoses Diagnosis Abnormal ultrasound of breast Other (abnormal) findings on radiological examination of breast documented in this encounter Care Teams Ventilating Engineer Relationship Specialty Start Date End Date Sari Hay MD [address] [place] [address] PCP - General 05/21/11 documented as of this encounter
--- OUTSIDE RECORDS SUMMARY | 2024-05-09 04:28 | XMS_ITS | Encounter Summary ---
Author Organization [facility] [place] [place] [address] Care Team Providers Care Product Trainer Name Role Phone Sari Hay MD Primary Care Provider [phone] Encounter Details Date Type Department Care Team (Latest Contact Info) Description 06/02/2011 10:15 AM EDT - 06/02/2011 11:59 PM EDT Hospital Encounter [place] [address] CLINIC, Sari Barrera MD [facility] [address] [place] [address] Abnormal findings on diagnostic imaging [...] breast documented in this encounter Care Teams Product Trainer Relationship Specialty Start Date End Date Sari Hay MD [facility] [address] [place] [address] PCP - General 05/21/11 documented as of this encounter
--- OUTSIDE RECORDS SUMMARY | 2024-05-09 04:28 | XMS_ITS | Encounter Summary ---
Author Organization [facility] Address [facility] [place] [address] Care Team Providers Care Blacking Machine Operator Name Role Phone Sari Hay MD Primary Care Provider [phone] Encounter Details Date Type Department Care Team (Latest Contact Info) Description 07/18/2015 2:05 PM EDT - 07/18/2015 11:59 PM EDT Hospital Encounter XRay at [address] [place] [address] Stanley Koo MD [facility] [place] [address] Left foot pain Discharge Disposition: Home Social [...] limb documented in this encounter Care Teams Blacking Machine Operator Relationship Specialty Start Date End Date Sari Hay MD [address] [place] [address] PCP - General 05/21/11 documented as of this encounter
--- OUTSIDE RECORDS SUMMARY | 2024-05-09 04:28 | XMS_ITS | Encounter Summary ---
Author Organization [facility] [place] [address] Care Team Providers Care Controls Design Engineer Name Role Phone Sari Hay MD Primary Care Provider [phone] Encounter Details Date Type Department Care Team (Late st Contact Info) Description 05/15/2014 8:30 PM EDT - 05/15/2014 11:59 PM EDT Hospital Encounter [place] [address] Stanley Koo MD [facility] [place] [address] Pain Social History Tobacco Use Types Packs/Day [...] MR Foot (05/15/2014 8:30 PM EDT) Narrative [facility] - 07/18/2015 8:31 PM EDT See PACS for result report. Stanley Koo MD G FILM LIBRARY ORD ERABLES [facility] [place], [place] documented in this encounter Visit Diagnoses Diagnosis Pain Generalized pain documented in this encounter Care Teams Controls Design Engineer Relationship Specialty Start Date End Date Sari Hay MD [address] [facility] [place] [address] PCP - General 05/21/11 documented as of this encounter
--- OUTSIDE RECORDS SUMMARY | 2024-05-09 04:28 | XMS_ITS | Encounter Summary ---
Author Organization [facility] Address [address] [place] [address] Care Team Providers Care Toy Maker Name Role Phone Unavailable Primary Care Provider Unavailabl e Encounter Details Date Type Department Care Team (Late st Contact Info) Description 05/02/2011 Results Only [facility] - [facility] ([facility] [address] [place], [place] [address] Jennifer Seymour NP [address] [place] [address] Social History Tobacco Use Types [...] ? SISSY EUGENE ? Accession #: ? [id number] ? : ? 1965 (Age: 45) ??F ?Collect Date: ? 05/02/2011 ? Location: ? [facility] ? Receive Date: ? 05/06/2011 ? Provider: JENNIFER SEYMOUR ARTS AND CRAFTS TEACHER ? Copy to: ? Final Report ? [...] [facility] 05/02/2011 05/06/2011 Jennifer Seymour ARTS AND CRAFTS TEACHER PATHOLOGY ORDERABLES [facility] [address] [place] [address] documented in this encounter Visit Diagnoses Not on filedocumented in this encounter
--- OUTSIDE RECORDS SUMMARY | 2024-05-09 04:28 | XMS_ITS | Encounter Summary ---
Author [facility] Address [place] [address] Care Team Providers Care Assistant Front Desk Manager Name Role Phone MendezNelly kearney Juan BEY Primary Care Provider [phone] Encounter Details Date Type Department Care Team (Latest Contact Info) Description 05/16/2011 3:45 PM EDT - 05/16/2011 11:59 PM EDT Hospital Encounter XRay at [address] [place] [address] CLINIC, DR VYAS Discharge Disposition: Home Social [...] Right breast. Given that ultrasound is somewhat edge bander operator dependent and benefits from real time [...] follow-up was recommended. TECHNIQUE: Bilateral mammograms from [facility] dated 05/09/11, diagnostic Right breast mammogram [...] Right breast. Given that ultrasound is somewhat edge bander operator dependent and benefits from real time [...] follow-up was recommended. TECHNIQUE: Bilateral mammograms from [facility] dated 05/09/11, diagnostic Rightbreast mammogram dated 05/13/11; comparisons to 11/16/07 FINDINGS: This is a (BIRADS Category 0) INCOMPLETE Right breast for a [id number] lobulated mass in the lower, outer Right [...] filedocumented in this encounter Care Teams Assistant Front Desk Manager Relationship Specialty Start Date End Date Nelly Mendez APRN [phone] [place] [address] PCP - General 05/15/11 05/20/11 documented as of this encounter
--- OUTSIDE RECORDS SUMMARY | 2024-05-09 04:28 | XMS_ITS | Encounter Summary ---
Author Organization [facility] Address [facility] [place] [address] Care Team Providers Care Environmental Inspector Name Role Phone Sari Hay MD Primary Care Provider [phone] Encounter Details Date Type Department Care Team (Late st Contact Info) Description 04/20/2015 Orders [place] [address] Stanley Koo MD [facility] [place] [address] Left foot pain Social History Tobacco Use [...] limb documented in this encounter Care Teams Environmental Inspector Relationship Specialty Start Date End Date Sari Hay MD [address] [place] [address] PCP - General 05/21/11 documented as of this encounter
--- OUTSIDE RECORDS SUMMARY | 2024-05-09 04:28 | XMS_ITS | Encounter Summary ---
Author Organization [facility] Address [address] [place] [address] Care Team Providers Care Xray Tech Name Role Phone Unknown, Provider Primary Care Provider [phone] Encounter Details Date Type Department Care Team ([facility] st Contact Info) Description 10/22/2016 Results Only [facility] [phone] Konrad Arechiga MD [facility] [place] [address] Social History Tobacco Use Types Packs/Day Years [...] ? SISSY EUGENE ? Accession #: ? [id number] ? : ? 1965 (Age: 51) ??F ? Collect Date: ? 10/22/2016 ? Location: ? [facility] ? Receive Date: ? 10/22/2016 ? Provider: KONRAD ARECHIGA MD Copy to: CRISTY PACHECO MD ? Final Pathologic Diagnosis: SOFT TISSUE OF ANKLE, LEFT, MASS, EXCISION: - ??Adipose and fibrous tissue with extensive fat necrosis. See comment. Comment: ? Parking Supervisor slides of this case were reviewed at [...] (ASCP) 10/23/2016 7:36 AM End of Report [facility] 10/22/2016 20:2 8 EST 10/22/2016 20:28 EST Konrad Arechiga MD PATHOLOGY ORDERABLES [facility] [address] [place] [address] documented in this encounter Visit Diagnoses Not on filedocumented in this encounter Care Teams Xray Tech Relationship Specialty Start Date End Date Unknown, Provider, PCP - General 08/09/15 10/23/16 documented as of this encounter
[2024-05-09] MEDS: Levalbuterol HFA 15 GM INH 4 PUFF IH (11:21)
[2024-05-09] MEDS: Inhaler, Assist Device 1 EACH MC (11:21)
--- NOTE | 2024-05-10 13:46 | W.PFT ---
Date of service: 05/09/24 Time of Service: 10:00 Pulmonary Function Test Result Requesting Provider Alyx Bello Indications: CARRANZA Impression Spirometry shows normal FEV1/FVC at 81% with normal FEV1 and FVC. Normal lung volumes with no air trapping. Normal diffusion. Normal flow-volume loop Clinical Correlation therefore is recommended.
== END 2024-05-09 04:22 | disposition home or self-care (01) ==
LOC: RT 04:22
PROVIDERS: Visit Provider Nurse Practitioner Family
DX: R06.09 Other forms of dyspnea (principal)
CPT/HCPCS: 00123; 94060; 94726; 94729

== ENCOUNTER 2024-10-03 01:46 | Outpatient (CLI) | payer BC, SELFPAY ==
--- NOTE | 2024-10-03 | DI.MAMMO_ITS ---
Exam(s) MAMMO SCREENING EXAM: MAMMO SCREENING CLINICAL HISTORY: SCREENING,Z12.39. TECHNIQUE: Bilateral full field digital CC and MLO mammographic images were obtained with 3D tomosyn thesis and utilizing computer aided detection (CAD). COMPARISON: Prior mammograms were reviewed. FINDINGS: There has been no significant change in the appearance and distribution of the fibroglandular tissue. Asymmetric density in left breast is unchanged from prior mammograms. There are no new spiculated masses nor malignant appearing microcalcification groups. There is no significant architectural distortion nor skin thickening-retraction. IMPRESSION: No radiographic evidence of malignancy. BI-RADS Category 1 - Negative Breast Density - Category B - Scattered areas of fibroglandular density Breast density Category C or D implies that the patient has dense breast tissue. Dense breast tissue can make it harder to find cancer on a mammogram. Dense breast tissue is also associated with an incr eased risk of breast cancer. This information about the result of the mammogram report was provided to the patient to raise their awareness. Use this report when you speak with the patient about their risks for breast cancer, which includes their family history. At that time, you may recommend additional screening tests (Ultrasoun d or MRI) as these tests may add significant information. A negative radiographic report should not delay biopsy if a dominant or clinically suspicious mass is present. Up to ten percent of cancers are not identified on mammography. A negative report may reinforce clinical impression. Adenosis and dense breasts may obscure an underlying neoplasm. False positive reports average 6 to 10%. Patient will receive a letter notifying them of these results.
== END 2024-10-03 02:06 ==
LOC: DI 01:46
PROVIDERS: Visit Provider Nurse Practitioner Family
DX: Z12.31 Encounter for screening mammogram for malignant neoplasm of breast (principal); R92.323 Mammographic fibroglandular density, bilateral breasts
CPT/HCPCS: 77063; 77067

== ENCOUNTER 2025-01-17 17:32 | Outpatient (REF) | payer BC, SELFPAY ==
[2025-01-17 19:36] LABS: ALT 32 U/L (14-59); AST 18 U/L (15-37); Albumin 4.1 g/dL (3.4-5.0); Alkaline Phosphatase 138 U/L (46-116); Anion Gap 6.8 mmol/L (3-11); BUN 17 mg/dL (7-18); Bilirubin, Total 0.4 mg/dL (0.2-1.0); CO2 29.2 mmol/L (21.0-32.0); Calcium 9.7 mg/dL (8.5-10.1); Calculated LDL 149 mg/dL (<100); Chloride 109 mmol/L (98-107); Cholesterol 260 mg/dL (<200); Estimated GFR 64.09 (mL/min/1.73m2); Glucose 111 mg/dL (74-106); HDL Cholesterol 82 mg/dL (>or=50); Potassium 4.3 mmol/L (3.5-5.1); Sodium 145 mmol/L (136-145); Triglyceride 149 mg/dL (<150)
[2025-01-17 19:57] LABS: Hemoglobin A1C 5.5 % (<5.7)
== END 2025-01-17 17:33 | disposition home or self-care (01) ==
LOC: NCHCN 17:32
PROVIDERS: Visit Provider Nurse Practitioner Family
DX: I10 Essential (primary) hypertension (principal); Z68.41 Body mass index [BMI] 40.0-44.9, adult; E66.9 Obesity, unspecified; E78.5 Hyperlipidemia, unspecified
CPT/HCPCS: 80053; 80061; 83036